=== PATIENT | female | born 1950 | race Caucasian/White ===

== ENCOUNTER → 2017-11-03 | Outpatient (CLI) | payer MEDICARE, OTHER, SELFPAY | PROVIDERS: Family Provider Family Medicine; Visit Provider Orthopaedic Surgery | DX: Z48.89 Encounter for other specified surgical aftercare (principal) | CPT/HCPCS: 73502; 73552 ==

== ENCOUNTER → 2017-11-26 08:23 | Outpatient (CLI) | payer MEDICARE, OTHER, SELFPAY ==
--- NOTE | 2017-11-26 08:30 | XR_ITS ---
XR femur LT 2V CLINICAL INDICATION: Follow-up fracture ITS.REASON: post op ORDERING PHYSICIAN: Macario Perez MD PATIENT AGE: 67 years COMPARISON: 11/03/2017 FINDINGS: There remains good alignment of the comminuted subtrochanteric fracture of the left femur status post ORIF with long intramedullary herbert and cerclage wire proximally with a gamma nail present. There are osteoarthritic changes of the left hip. No significant callus formation at the fracture site. IMPRESSION: Overall no change status post ORIF of comminuted subtrochanteric fracture with good alignment
--- NOTE | 2017-11-26 08:30 | XR_ITS ---
XR hip LT 2-3V w/pelvis HISTORY: ITS.REASON: postoperative visit ORDERING PHYSICIAN: Macario Perez MD PATIENT AGE: 67 years COMPARISON: 11/03/2017 FINDINGS: There remains good alignment of the comminuted subtrochanteric fracture of the left femur status post ORIF with long intramedullary herbert and cerclage wire proximally with a gamma nail present. There are osteoarthritic changes of the left hip. No significant callus formation at the fracture site. IMPRESSION: Overall no change status post ORIF of comminuted subtrochanteric fracture of the left hip with good alignment
== END ==
PROVIDERS: PCP Family Medicine; Visit Provider Orthopaedic Surgery
DX: Z48.89 Encounter for other specified surgical aftercare (principal)
CPT/HCPCS: 73502; 73552

== ENCOUNTER → 2018-02-21 14:32 | Outpatient (POV) | payer MEDICARE, OTHER, SELFPAY ==
[2018-02-21 14:51] VITALS: BP 165/96; PULSE 98; BMI 25.0
--- NOTE | 2018-02-21 15:49 | HMH.PAINSOAP ---
[facility] Pain Management SOAP Note Subjective:: Patient is an extremely pleasant 67-year-old white female who is status post medial branch blocks at L3-L4 L4-L5 L5-S1. Patient had this back last year and did extremely well with it until recently. She has had some occasional pain but her symptoms were controlled up to 90% until this last several weeks. She did have a fall where she broke her leg and she believes that this may have led to the renewal of back pain. Patient rates her pain a 7 out of 10 today. Patient is not on any blood thinners. Patient's tried and failed physical therapy, anti-inflammatories, medications. She is stating her pain is in her back and does not radiate down her legs. ROS General: no recent weight change, no fever, no sleep disturbances Respiratory: no cough, no shortness of air, no recurring pulmonary infections Cardiovascular/Peripheral Vascular: No chest pain, No palpitations, no edema, no shortness of breath. Gastrointestinal: no incontinence, normal bowel movements reported Genitourinary: no incontinence Musculoskeletal: Back pain Psychiatric: normal mood/ affect Neurological: [denies weakness in extremities], [denies balance issues] Objective:: Physical Exam General: Alert and oriented x3, no acute distress, pleasant and cooperative, [on room air] Lungs: Resps E/U, Symmetrical chest expansion, Eyes: PERRL Musculoskeletal: Flexion and extension of lumbar spine somewhat guarded secondary to pain, deep tendon reflexes normal, strength in upper and lower extremities [5/5], slightly antalgic gait noted, positive Kemps test of lumbar spine Neurological: speech clear, plant senior 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 Given the efficacy of this in the past I believe that this would be beneficial. Patient has tried and failed physical therapy, medications, anti-inflammatories. She is not on any coagulopathy therapy. This note was dictated using voice recognition software and may contain errors or omissions
--- NOTE | 2018-02-21 15:55 | P.CONS_ITS ---
[facility] Pain Management SOAP Note Subjective:: Patient is an extremely pleasant 67-year-old white female who is status post medial branch blocks at L3-L4 L4-L5 L5-S1. Patient had this back last year and did extremely well with it until recently. She has had some occasional pain but her symptoms were controlled up to 90% until this last several weeks. She did have a fall where she broke her leg and she believes that this may have led to the renewal of back pain. Patient rates her pain a 7 out of 10 today. Patient is not on any blood thinners. Patient's tried and failed physical therapy, anti-inflammatories, medications. She is stating her pain is in her back and does not radiate down her legs. ROS General: no recent weight change, no fever, no sleep disturbances Respiratory: no cough, no shortness of air, no recurring pulmonary infections Cardiovascular/Peripheral Vascular: No chest pain, No palpitations, no edema, no shortness of breath. Gastrointestinal: no incontinence, normal bowel movements reported Genitourinary: no incontinence Musculoskeletal: Back pain Psychiatric: normal mood/ affect Neurological: [denies weakness in extremities], [denies balance issues] Objective:: Physical Exam General: Alert and oriented x3, no acute distress, pleasant and cooperative, [ on room air] Lungs: Resps E/U, Symmetrical chest expansion, Eyes: PERRL Musculoskeletal: Flexion and extension of lumbar spine somewhat guarded secondary to pain, deep tendon reflexes normal, strength in upper and lower extremities [5/5], slightly antalgic gait noted, positive Kemps test of lumbar spine Neurological: speech clear, singer songwriter equal, no gross sensory deficits Assessment:: Lumbar facet arthropathy, lumbar spondylosis, degenerative disc disease of the lumbar spine Plan:: We will schedule a bilateral medial branch block at L3-L4, L4-L5, L5-S1. Given the efficacy of this in the past I believe that this would be beneficial. Patient has tried and failed physical therapy, medications, anti- inflammatories. She is not on any coagulopathy therapy. This note was dictated using voice recognition software and may contain errors or omissions
== END ==
PROVIDERS: Family Provider Family Medicine; PCP Family Medicine; Visit Provider Clinical Nurse Specialist Family Health
DX: M47.816 Spondylosis without myelopathy or radiculopathy, lumbar region (principal)
CPT/HCPCS: 99212

== ENCOUNTER → 2018-02-23 12:56 | Outpatient (CLI) | payer MEDICARE, OTHER, SELFPAY ==
--- NOTE | 2018-02-23 12:59 | XR_ITS ---
XR hip LT 2-3V w/pelvis HISTORY: Follow-up surgery ITS.REASON: postoperative visit dos 10/17/17 ORDERING PHYSICIAN: Macario Perez MD PATIENT AGE: 67 years COMPARISON: 11/26/2017 FINDINGS: Status post ORIF left proximal femur fracture. Gamma nail with long intramedullary herbert is present. Nondisplaced proximal femur fracture in the subtrochanteric region noted with increasing callus formation medially. A faint lucency is noted at the proximal tip of the gamma nail. Underlying loosening of the prosthesis or infection is a consideration. Follow-up recommended. There are severe osteoarthritic changes of the left hip as well as the right hip. IMPRESSION: 1. Status post ORIF left proximal femur fracture with evidence of healing of the fracture site with callus formation developing medially. 2. Questionable developing lucency at the proximal tip of the gamma nail which may be seen with loosening or infection. 3. Severe osteoarthritis of the left
--- NOTE | 2018-02-23 12:59 | XR_ITS ---
XR femur LT 2V CLINICAL INDICATION: Follow-up fracture/ORIF ITS.REASON: post operative dos 10/17/17 ORDERING PHYSICIAN: Macario Perez MD PATIENT AGE: 67 years COMPARISON: 11/26/2017 FINDINGS: Status post ORIF of proximal left femur fracture with gamma nail and long intramedullary herbert present. Developing callus formation is present medially. A cerclage wire is present at this area. There is good alignment. The transverse screw in the distal aspect of the intramedullary herbert has fractured at its central aspect. Osteoarthritic changes are present at the knee. IMPRESSION: 1. Status post ORIF proximal femur fracture with healing. 2. Fracture of the transverse screw within the distal aspect of the long intramedullary herbert. 3. There is questionable loosening of the gamma nail component proximally better detected on the hip films.
== END ==
PROVIDERS: PCP Family Medicine; Visit Provider Orthopaedic Surgery
DX: Z48.89 Encounter for other specified surgical aftercare (principal)
CPT/HCPCS: 73502; 73552

== ENCOUNTER → 2018-02-23 14:19 | Outpatient (CLI) | payer MEDICARE, OTHER, SELFPAY ==
[2018-02-23 16:15] LABS: C-Reactive Protein < 0.2 mg/L (0.0-0.9)
[2018-02-23 16:34] LABS: Basophils % 0.6 % (0.1-2.0); Eosinophils # 0.2 K/mm3 (0.0-0.4); Eosinophils % 3.2 % (0.1-12.0); Hematocrit 36.6 % (37.0-47.0); Hemoglobin 11.7 g/dL (12.2-16.2); Lymphocytes # 1.9 K/mm3 (0.7-4.5); Lymphocytes % 27.7 K/mm3 (10-50); Mean Corpuscular HGB Conc 31.9 g/dL (31.8-35.4); Mean Corpuscular Hemoglobin 29.6 pg (27.0-31.2); Mean Corpuscular Volume 92.7 fl (81-99); Mean Platelet Volume 7.9 fl (7.4-10.4); Monocytes # 0.4 K/mm3 (0.1-1.0); Monocytes % 5.5 % (1.7-9.3); Neutrophils # 4.3 K/mm3 (1.8-7.8); Neutrophils % 62.9 % (37.0-80.0); Platelet Count 225 K/mm3 (142-424); Red Blood Count 3.95 M/mm3 (4.20-5.40); Red Cell Distribution Width 13.5 % (11.5-17.5); White Blood Count 6.8 K/mm3 (4.8-10.8)
[2018-02-23 18:55] LABS: Erythrocyte Sedimentation Rate 29 mm/hr (0-30)
== END ==
PROVIDERS: Visit Provider Orthopaedic Surgery
DX: B99.9 Unspecified infectious disease (principal); Z48.89 Encounter for other specified surgical aftercare
CPT/HCPCS: 36415; 73502; 73552; 85025; 85651; 86140

== ENCOUNTER → 2018-03-14 10:25 | Outpatient (POV) | payer MEDICARE, OTHER, SELFPAY ==
[2018-03-14 10:39] VITALS: BP 170/80; PULSE 89; RESP 18; TEMP 36.7; O2SAT 99; BMI 25.9
--- NOTE | 2018-03-14 11:21 | P.CONS_ITS ---
[facility] Pain Management SOAP Note Subjective:: This patient is a pleasant 67-year-old white female who we have been treating for low back pain secondary to lumbar spondylosis. Patient is following up after her most recent medial branch block at L3-L4 L4-L5 L5-S1 bilaterally. Patient states she is 80-90% relief of her pain. Patient states that she is doing well. Patient is going for a second opinion on potential hip replacement. Patient states she would like to follow up with us on an as- needed basis. ROS General: no recent weight change, no fever, no sleep disturbances Respiratory: no cough, no shortness of air, no recurring pulmonary infections Cardiovascular/Peripheral Vascular: No chest pain, No palpitations, no edema, no shortness of breath. Gastrointestinal: no incontinence, normal bowel movements reported Genitourinary: no incontinence Musculoskeletal: Back pain Psychiatric: normal mood/ affect, [denies depression], [denies anxiety] Neurological: [denies weakness in extremities] Objective:: Physical Exam General: Alert and oriented x3, no acute distress, pleasant and cooperative, on room air Lungs: Resps E/U, Symmetrical chest expansion, Eyes: PERRL Musculoskeletal: Flexion and extension of lumbar spine somewhat guarded secondary to pain, deep tendon reflexes normal, strength in upper and lower extremities [5/5], [abnormal gait noted] Neurological: speech clear, pole climber equal, no gross sensory deficits Assessment:: Degenerative disc disease of the lumbar spine with lumbar facet arthropathy and lumbar spondylosis Plan:: We will follow-up with this patient on an as-needed basis. Patient is going for second opinion in regards to hip replacement. Patient has been instructed to call us if she needs us. Patient still doing very well after latest medial branch block. This note was dictated using voice recognition software and may contain errors or omissions
== END ==
PROVIDERS: Family Provider Family Medicine; PCP Family Medicine; Visit Provider Clinical Nurse Specialist Family Health
DX: M47.896 Other spondylosis, lumbar region (principal)
CPT/HCPCS: 99212

== ENCOUNTER → 2018-03-21 08:51 | Outpatient (CLI) | payer MEDICARE, OTHER, SELFPAY ==
--- NOTE | 2018-03-21 08:58 | MM_ITS ---
MM Dig screening mamm BI w/CAD CAD Screening ORDERING PHYSICIAN : Tariq Betancourt MD PATIENT AGE: 67 years GENDER: Female COMPARISON: Previous mammograms: May 2012, March 2017, September 2013 INDICATION: Routine screening. No hormones. No new complaints. Noncontributory family history. TECHNIQUE: Standard CC and MLO images were obtained. R2 CAD reviewed. FINDINGS: Lower density breast with generalized fatty replacement. Minimal residual fibroglandular elements noted, towards upper-outer quadrant bilateral . No significant change since prior study. No dominant mass nor suspicious calcifications. No architectural distortion . IMPRESSION: Stable bilateral mammogram... With no significant new findings. Follow-up in one year recommended BI-RADS Category: 1 Negative RECOMMENDED FOLLOW-UP: 1YR - 1 YEAR FOLLOW-UP (A letter has been sent to the patient regarding results of the study.)
--- NOTE | 2018-03-21 08:59 | XR_ITS ---
XR DEXA axial skeleton HISTORY: ITS.REASON: POST MENOPAUSAL ORDERING PHYSICIAN: Tariq Betancourt MD PATIENT AGE: 67 years COMPARISON: 03/18/2017 FINDINGS: The BMD measured at the Total femoral neck is 0.666 g/cm squared with a T score of -2.7. This is considered Osteoporotic according to the World Health Organization criteria. Fracture risk is High. Treatment is advised. The L1-L4 density has a T score of -0.5 consistent with osteopenia. This is increased 14% compared to the previous study. The right hip density has decreased by 4% compared to the previous exam. IMPRESSION: Osteoporosis with high fracture risk. Treatment recommended. Recommend follow-up exam March 2019
== END ==
PROVIDERS: Family Provider Family Medicine; PCP Family Medicine; Visit Provider Family Medicine
DX: Z12.31 Encounter for screening mammogram for malignant neoplasm of breast (principal); Z78.0 Asymptomatic menopausal state
CPT/HCPCS: 77067; 77080

== ENCOUNTER → 2018-03-22 15:45 | Outpatient (CLI) | payer MEDICARE, OTHER, SELFPAY ==
[2018-03-22 16:01] LABS: Microscopic, Urine URINE MICROSCOPIC (MICROSCOPIC)
[2018-03-22 16:13] LABS: Appearance,Urine CLEAR (Clear); Bilirubin,Urine Negative (Negative); Blood, Urine Negative (Negative); Color,Urine YELLOW (Yellow); Glucose,Urine (UA) Negative (Negative); Ketones,Urine Negative (Negative); Leukocyte Esterase,Urine Negative (Negative); Nitrate,Urine Negative (Negative); PH,Urine 5.5 (5.0-8.5); Protein,Urine Negative (Negative); Specific Gravity, Urine <= 1.005 (1.005-1.030); Urobilinogen,Urine 0.2 EU/dl (0.2)
[2018-03-22 16:19] LABS: Basophils % 0.4 % (0.1-2.0); Eosinophils # 0.2 K/mm3 (0.0-0.4); Eosinophils % 2.9 % (0.1-12.0); Hematocrit 36.1 % (37.0-47.0); Hemoglobin 11.7 g/dL (12.2-16.2); Lymphocytes # 1.5 K/mm3 (0.7-4.5); Lymphocytes % 23.8 K/mm3 (10-50); Mean Corpuscular HGB Conc 32.5 g/dL (31.8-35.4); Mean Corpuscular Hemoglobin 29.9 pg (27.0-31.2); Mean Corpuscular Volume 92.1 fl (81-99); Mean Platelet Volume 7.8 fl (7.4-10.4); Monocytes # 0.3 K/mm3 (0.1-1.0); Neutrophils # 4.3 K/mm3 (1.8-7.8); Neutrophils % 67.9 % (37.0-80.0); Platelet Count 223 K/mm3 (142-424); Red Blood Count 3.91 M/mm3 (4.20-5.40); Red Cell Distribution Width 13.8 % (11.5-17.5); White Blood Count 6.3 K/mm3 (4.8-10.8)
--- NOTE | 2018-03-22 16:25 | XR_ITS ---
XR chest 2V HISTORY: Tobacco use, COPD ITS.REASON: PREOP FOR HIP REPLACEMENT ORDERING PHYSICIAN: Tariq Betancourt MD PATIENT AGE: 67 years COMPARISON: 10/16/2017 FINDINGS: Hyperinflation with attenuation of the peripheral pulmonary vessels consistent with COPD. No lobar consolidation or collapse. No acute bony anomalies. Mild degenerative changes are present in the thoracic spine. IMPRESSION: COPD, no change with no acute finding
[2018-03-22 16:29] LABS: Activated Partial Thrombo Time 25.6 seconds (23.6-34.0); INR 0.93 (0.9-1.1)
[2018-03-22 17:13] LABS: Bacteria,Urine Trace /lpf; Squamous Epithelial Cell,Urine Occasional #/hpf (0-5)
[2018-03-22 17:15] LABS: Erythrocyte Sedimentation Rate 43 mm/hr (0-30)
[2018-03-22 17:21] LABS: Hemoglobin A1C 4.7 % (0.0-7.0)
[2018-03-22 17:22] LABS: Anion Gap 8.7 mEq/L (5-15); Blood Urea Nitrogen 9 mg/dL (7-18); Carbon Dioxide 32 mmol/L (21.0-32.0); Chloride 104 mmol/L (98-107); Creatinine,Serum 0.56 mg/dL (0.55-1.02); Estimated Glomerular Filt Rate 107 ml/min (>60); GFR (African American) 130 ML/MIN (>60); Glucose 85 mg/dL (74-106); Potassium 3.7 mmoL/L (3.5-5.1); Sodium 141 mmol/L (136-145)
[2018-03-24 10:23] LABS: C-Reactive Protein < 0.2 mg/L (0.0-0.9)
== END ==
PROVIDERS: Visit Provider Family Medicine
DX: Z01.818 Encounter for other preprocedural examination (principal); Z79.899 Other long term (current) drug therapy
CPT/HCPCS: 36415; 71046; 80048; 81001; 83036; 85025; 85610; 85651; 85730; 86140; 93005

== ENCOUNTER → 2018-05-23 10:43 | Outpatient (POV) | payer MEDICARE, OTHER, SELFPAY ==
[2018-05-23 11:01] VITALS: BP 149/68; PULSE 100; RESP 18; O2SAT 98; BMI 20.3
--- NOTE | 2018-05-23 11:24 | P.CONS_ITS ---
[facility] Pain Management SOAP Note Subjective:: Patient is a pleasant 67-year-old white female who presents today to discuss additional medial branch blocks at L3-L4 L4-L5 L5-S1 bilaterally. We are treating this patient for pain secondary to lumbar spondylosis and facet arthropathy. Patient gets about 80-90% relief of her pain for several months with these medial branch blocks. Patient has just had a hip replacement in March and she states since she has been more active with physical therapy she is had increased pain in her back. Patient has not been released from her surgeon yet we discussed that she needs to be released from her surgeon prior to us repeating her medial branch blocks. Patient understands this. Patient is not on any anticoagulation therapy. She rates her pain a 6 out of 10 today mostly in her low back. Patient denies any radicular symptoms. ROS General: no recent weight change, no fever, no sleep disturbances Respiratory: no cough, no shortness of air, no recurring pulmonary infections Cardiovascular/Peripheral Vascular: No chest pain, No palpitations, no edema, no shortness of breath. Gastrointestinal: no incontinence, normal bowel movements reported Genitourinary: no incontinence Musculoskeletal: Back pain Psychiatric: normal mood/ affect Neurological: [denies weakness in extremities], [denies balance issues] Objective:: Physical Exam General: Alert and oriented x3, no acute distress, pleasant and cooperative, [ on room air] Lungs: Resps E/U, Symmetrical chest expansion, Eyes: PERRL Musculoskeletal: Flexion and extension of lumbar spine somewhat guarded secondary to pain, deep tendon reflexes normal, strength in upper and lower extremities [5/5], [abnormal gait noted], positive facet loading lumbar spine Neurological: speech clear, four horse hitch driver equal, no gross sensory deficits Assessment:: Lumbar spondylosis, facet arthropathy of the lumbar spine Plan:: We will schedule medial branch block at L3-L4 L4-L5 L5-S1 bilaterally for the end of June this will be after she is released from her physical therapy and surgeon. Patient has been instructed to call the office if there is any changes in this release date. I will follow-up with the patient after her injections. This note was dictated using voice recognition software and may contain errors or omissions
== END ==
PROVIDERS: Family Provider Family Medicine; PCP Family Medicine; Visit Provider Clinical Nurse Specialist Family Health
DX: M47.816 Spondylosis without myelopathy or radiculopathy, lumbar region (principal)
CPT/HCPCS: 99212

== ENCOUNTER → 2018-06-27 11:10 | Outpatient (POV) | payer MEDICARE, OTHER, SELFPAY ==
[2018-06-27 11:34] VITALS: BP 150/75; PULSE 83; RESP 18; O2SAT 98; BMI 25.6
--- NOTE | 2018-06-27 12:14 | P.CONS_ITS ---
[facility] Pain Management SOAP Note Subjective:: Patient is a pleasant 67-year-old white female who presents today for follow-up after medial branch block of the L3-L4 L4-L5 L5-S1 levels bilaterally. Patient is doing wonderful she states that she her pain is a 2 out of 10. Patient is continuing to heal from a hip replacement. Patient states that in August she will have her other hip replaced. Patient would like to follow-up on an as- needed basis. ROS General: no recent weight change, no fever, no sleep disturbances Respiratory: no cough, no shortness of air, no recurring pulmonary infections Cardiovascular/Peripheral Vascular: No chest pain, No palpitations, no edema, no shortness of breath. Gastrointestinal: no incontinence, normal bowel movements reported Genitourinary: no incontinence Musculoskeletal: Back pain Psychiatric: normal mood/ affect Neurological: [denies weakness in extremities], [denies balance issues] Objective:: Physical Exam General: Alert and oriented x3, no acute distress, pleasant and cooperative, [ on room air] Lungs: Resps E/U, Symmetrical chest expansion Eyes: PERRL Musculoskeletal: Flexion and extension of lumbar spine somewhat guarded secondary to pain, deep tendon reflexes normal, strength in upper and lower extremities [5/5], [abnormal gait noted] Neurological: speech clear, helminthologist equal, no gross sensory deficits Assessment:: Degenerative disc disease of lumbar spine with lumbar spondylosis and facet arthropathy Plan:: We will schedule this patient on an as-needed basis. Patient's been a call our office if she has any need for injective therapy in the future. Patient extremely well with her injections in the past. This note was dictated using voice recognition software and may contain errors or omissions
== END ==
PROVIDERS: Family Provider Family Medicine; PCP Family Medicine; Visit Provider Clinical Nurse Specialist Family Health
DX: M51.36 Other intervertebral disc degeneration, lumbar region (principal); M47.896 Other spondylosis, lumbar region; M54.06 Panniculitis affecting regions of neck and back, lumbar region
CPT/HCPCS: 99213

== ENCOUNTER → 2018-10-10 15:07 | Outpatient (POV) | payer MEDICARE, OTHER, SELFPAY ==
[2018-10-10 15:27] VITALS: BP 155/77; PULSE 89; RESP 18; O2SAT 98; BMI 25.4
--- NOTE | 2018-10-10 15:33 | HMH.PAINSOAP ---
[facility] Pain Management SOAP Note Subjective:: Patient is a pleasant 68-year-old white female who presents today for follow-up after some time since her last medial branch block. Patient is here for a another round of medial branch blocks at L3-L4 L4-L5 L5-S1. Patient gets about 80% relief of her symptoms up to 4 5 months. She is doing wonderful. Patient rates her pain a 5 out of 10. Patient would like to move forward with this prior to New Year's. Patient is not on any anticoagulation therapy. And she is continuing a home stretching regimen. ROS General: no recent weight change, no fever, no sleep disturbances Respiratory: no cough, no shortness of air, no recurring pulmonary infections Cardiovascular/Peripheral Vascular: No chest pain, No palpitations, no edema, no shortness of breath. Gastrointestinal: no incontinence, normal bowel movements reported Genitourinary: no incontinence Musculoskeletal: Back pain Psychiatric: normal mood/ affect, Neurological: [denies weakness in extremities], [denies balance issues] Objective:: Physical Exam General: Alert and oriented x3, no acute distress, pleasant and cooperative, [on room air] Lungs: Resps E/U, Symmetrical chest expansion, Eyes: PERRL Musculoskeletal: Flexion and extension of lumbar spine somewhat guarded secondary to pain, deep tendon reflexes normal, strength in upper and lower extremities [5/5], slightly antalgic gait noted positive Kemps test bilaterally lumbar spine Neurological: speech clear, diabetes solutions specialist equal, no gross sensory deficits Assessment:: Degenerative disc disease lumbar spine with lumbar spondylosis and facet arthropathy Plan:: We will schedule her for medial branch block/facet joint injection L3-L4 L4-L5 L5-S1 bilaterally. Given the efficacy of this in the past I believe it would be beneficial for her. This note was dictated using voice recognition software and may contain errors or omissions
--- NOTE | 2018-10-10 15:36 | P.CONS_ITS ---
[facility] Pain Management SOAP Note Subjective:: Patient is a pleasant 68-year-old white female who presents today for follow-up after some time since her last medial branch block. Patient is here for a another round of medial branch blocks at L3-L4 L4-L5 L5-S1. Patient gets about 80% relief of her symptoms up to 4 5 months. She is doing wonderful. Patient rates her pain a 5 out of 10. Patient would like to move forward with this prior to New Year's. Patient is not on any anticoagulation therapy. And she is continuing a home stretching regimen. ROS General: no recent weight change, no fever, no sleep disturbances Respiratory: no cough, no shortness of air, no recurring pulmonary infections Cardiovascular/Peripheral Vascular: No chest pain, No palpitations, no edema, no shortness of breath. Gastrointestinal: no incontinence, normal bowel movements reported Genitourinary: no incontinence Musculoskeletal: Back pain Psychiatric: normal mood/ affect, Neurological: [denies weakness in extremities], [denies balance issues] Objective:: Physical Exam General: Alert and oriented x3, no acute distress, pleasant and cooperative, [on room air] Lungs: Resps E/U, Symmetrical chest expansion, Eyes: PERRL Musculoskeletal: Flexion and extension of lumbar spine somewhat guarded secondary to pain, deep tendon reflexes normal, strength in upper and lower extremities [5/5], slightly antalgic gait noted positive Kemps test bilaterally lumbar spine Neurological: speech clear, director process engineering equal, no gross sensory deficits Assessment:: Degenerative disc disease lumbar spine with lumbar spondylosis and facet arthropathy Plan:: We will schedule her for medial branch block/facet joint injection L3-L4 L4-L5 L5-S1 bilaterally. Given the efficacy of this in the past I believe it would be beneficial for her. This note was dictated using voice recognition software and may contain errors or omissions
== END ==
PROVIDERS: PCP Family Medicine; Visit Provider Clinical Nurse Specialist Family Health
DX: M51.36 Other intervertebral disc degeneration, lumbar region (principal); M47.896 Other spondylosis, lumbar region; M54.06 Panniculitis affecting regions of neck and back, lumbar region
CPT/HCPCS: 99213

== ENCOUNTER → 2019-08-14 14:14 | Outpatient (POV) | payer MEDICARE, OTHER, SELFPAY ==
[2019-08-14 14:25] VITALS: BP 176/85; PULSE 84; RESP 18; O2SAT 97; BMI 24.7
--- NOTE | 2019-08-15 08:25 | P.CONS_ITS ---
[facility] Pain Management SOAP Note Subjective:: Patient is a very pleasant 69-year-old white female who presents today for follow-up. Patient had a medial branch block 9 months ago and had 80% relief until just recently. Patient would like to repeat this. She gets 80% relief for 4 to 6 months every time that she gets a medial branch block. She is had pain for over 6 months she is not on any anticoagulation therapy. She is continuing a home stretching program. She does not have any current infections. She rates her pain today an 8 out of 10. Mostly in her lower back. She has difficulty with twisting motion she has a positive Kemps test and facet loading lumbar spine ROS General: no recent weight change, no fever, no sleep disturbances Respiratory: no cough, no shortness of air, no recurring pulmonary infections Cardiovascular/Peripheral Vascular: No chest pain, No palpitations, no edema, no shortness of breath. Gastrointestinal: no incontinence, normal bowel movements reported Genitourinary: no incontinence Musculoskeletal: Back pain Psychiatric: normal mood/ affect Neurological: [denies weakness in extremities], [denies balance issues] Objective:: Physical Exam General: Alert and oriented x3, no acute distress, pleasant and cooperative, [on room air] Lungs: Resps E/U, Symmetrical chest expansion, Eyes: PERRL Musculoskeletal: Flexion and extension of lumbar spine somewhat guarded secondary to pain, deep tendon reflexes normal, strength in upper and lower extremities [5/5], slightly antalgic gait noted Neurological: speech clear, branding specialist equal, no gross sensory deficits Assessment:: Degenerative disc disease lumbar spine with lumbar spondylosis and facet arthropathy Plan:: Given the injection efficacy in the past we will order a L3-L4 L4-L5 L5-S1 bilateral lumbar medial branch block/facet joint injection. I will follow-up with the patient after this and reassess her symptoms at that time she is been instructed to call the office if she has any issues prior to her next appointment. Dr. Varela has reviewed this note and agrees with this plan of care. This note was dictated using voice recognition software and may contain errors or omissions [facility] History I have reviewed the patient's past medical history: Yes Medical History: Reports:: Cancer (precancerous polyps colon), Hyperlipidemia, Hypertension Denies:: Diabetes Mellitus Type 1, Diabetes Mellitus Type 2, MRSA, Seizures *Have you ever received a pneumonia vaccine?: No *Have you received a flu vaccine this season?: No Other Medical History: Reports: Arthritis, Other (Sleep Apnea.) Laterality Cases: Left: Total Hip Replacement, Bilateral: Tonsillectomy Other Surgeries: Yes: Tubal Ligation, Other (Adenoidectomy, Joint/Bone, LEFT hip/femur.) Amputation: No Fractures: Yes - *Social History Smoking Status: Current every day smoker Tobacco Type: cigarettes # Packs/Day (cigarettes): 1 Alcohol Intake: never *Occupational Status:: retired Household Members: spouse *Travel in the last 8 weeks: None Family Hx:: Thyroid Disorder
== END ==
PROVIDERS: PCP Family Medicine; Visit Provider Clinical Nurse Specialist Family Health
DX: M51.36 Other intervertebral disc degeneration, lumbar region (principal); M54.06 Panniculitis affecting regions of neck and back, lumbar region; M47.816 Spondylosis without myelopathy or radiculopathy, lumbar region
CPT/HCPCS: 99212

== ENCOUNTER → 2019-09-01 07:43 | Outpatient (CLI) | payer MEDICARE, OTHER, SELFPAY ==
--- NOTE | 2019-09-01 07:47 | CT_ITS ---
PROCEDURE: CT LUNG SCREENING CLINICAL INDICATION: H/O NICOTINE DEPENDENCE Thirty-seven pack-year smoking history, asymptomatic for lung cancer COMPARISON: LDCTLCAS LDCT FOR LUNG CA SCREEN from 03/18/2017 LDCTLCAS LDCT FOR LUNG CA SCREEN from 09/27/2017 TECHNIQUE: The exam was performed on a [facility] Speed [address] scanner using 2.90 mGy CTDI. A low dose helical CT CHEST was performed on a multi-detector scanner. All CT scans at the facility use one or more dose reduction, viz: automated exposure control, ma/kV adjustment per patient size (including targeted exams where dose is matched to indication, i.e. head), or iterative reconstruction technique. The LDCT was performed in a facility that meets the criteria for the screening program. Data regarding this exam was submitted to ACR which is an approved registry. The order for this exam indicates that it came as a result of a lung cancer screening counseling shard decision-making visit that included all the elements required of such a visit including smoking cessation. The radiologist interpreting this exam meets the CMS criteria for the LDCT lung cancer screening program. The exam is reported using the Lung-RADS classification scale and reported to the ACR registry. NOTE: This study was performed for the specific purposes of lung cancer screening and is not an alternative to diagnostic chest CT. RADIATION DOSE: CTDI vol(CT dose Index-volume) = 2.90mG DLP (Dose Length Product) = 111.60 mGcm FINDINGS: COPD/centrilobular emphysema Small cluster of nodules once again noted in the right upper lobe unchanged. A 5 mm nodule right lower lobe posteriorly unchanged. Fissural nodule on the right unchanged. 6 mm noncalcified left lower lobe laterally unchanged. Atelectatic or fibrotic changes in the lingula the the faint ground-glass nodule left upper lobe laterally at 4 mm probably unchanged. 2 OTHER FINDINGS: Calcification in the left thyroid gland. Coronary artery calcifications. Mild bronchial thickening/COPD IMPRESSION: Overall stable CT appearance of the chest Lung rads category 3 benign Other findings include COPD and coronary artery disease. Recommend annual LD CT screening Dictated by: Santiago Michelle MD 09/02/2019 07:21 Electronically signed by Santiago Michelle MD in [place] 09/17/2019 06:34
--- NOTE | 2019-09-01 07:47 | MM_ITS ---
PROCEDURE: MM DIG SCREENING MAMM BI W/CAD Patient Age:69Y CLINICAL INDICATION: SCREENING. No hormones, no new complaints. Noncontributory family history. COMPARISON: DIGMAMMS MAMMOGRAM SCREEN-PSYCHOLOGY LECTURER N/C from 08/18/2007 [facility] DIGITAL MAMM-SCREEN BILATERAL from 09/17/2010 [facility] DIGITAL MAMM-SCREEN BILATERAL from 05/10/2012 [facility] DIG MAMM-SCREEN DAWNA from 09/19/2013 [facility] DIG MAMM-SCREEN DAWNA W/CAD from 03/18/2017 [facility] MM Dig screening mamm BI w/CAD from 03/21/2018 TECHNIQUE: Standard CC and MLO images were obtained. R2 CAD reviewed. Additional axillary CC view right breast only FINDINGS: In [id number] fibroglandular elements bilaterally with partial fatty replacement. Overall lower density breast Left breast: Focal density retroareolar region seen on the CC view of more pronounced than previous studies but I suspect this mainly reflects overlapping shadows. Particularly since the MLO view findings here the retroareolar region appear similar to studies dating back to 2017. Nonetheless with this appearance at and this area highlighted by CAD in both projections I would suggest spot MLO and CC view and rolled CC views left breast--along with left breast ultrasound. Right breast: Minor focal area density at the superior breast on MLO view appears similar to 2006, and 2017. On the CC view there is a slightly more focal appearance at lateral retroareolar region. Thus would suggest suggest spot cc and MLO view and full 90 degree view right breast when patient returns IMPRESSION: LEFT BREAST: Focal area of density retroareolar region on CC view most likely reflects overlapping shadows Accentuating stable structures/tissue, but with today's appearance today's CC view-it does warrant does warrant additional spot views as described above, and subsequent ultrasound left breast RIGHT BREAST:. Spot views also suggested on right Today's views I believe merely accentuate pre-existing areas of density, doubtful significance but would benefit from spot views when the patient returns BI-RAD Category: 0 Need Additional Imaging Evaluation. FOLLOW-UP: IMM Immediate Follow-up Recommended. Spot views bilateral breast as discussed above (A letter has been sent to the patient regarding results of the study.) Dictated by: Celio Verdugo MD 09/02/2019 10:22 Electronically signed by Celio Verdugo MD in [place] 09/05/2019 12:26
== END ==
PROVIDERS: PCP Family Medicine; Visit Provider Family Medicine
DX: Z12.31 Encounter for screening mammogram for malignant neoplasm of breast (principal); Z87.891 Personal history of nicotine dependence; Z12.2 Encounter for screening for malignant neoplasm of respiratory organs
CPT/HCPCS: 77067

== ENCOUNTER → 2019-10-06 13:25 | Outpatient (CLI) | payer MEDICARE, OTHER, SELFPAY ==
--- NOTE | 2019-10-06 13:28 | US_ITS ---
PROCEDURE: 1.. MM DIG MAMM BI DX W/CAD 2.. US BREAST LT COMPLETE from 10/06/2019 3.. US BREAST RT COMPLETE from 10/06/2019 Patient Age:69Y CLINICAL INDICATION: Possible ABN densities bilaterally noted on recent screening MAMM COMPARISON: [facility] DIGITAL MAMM-SCREEN BILATERAL from 09/17/2010 [facility] DIGITAL MAMM-SCREEN BILATERAL from 05/10/2012 [facility] DIG MAMM-SCREEN DAWNA from 09/19/2013 [facility] DIG MAMM-SCREEN DAWNA W/CAD from 03/18/2017 [facility] MM Dig screening mamm BI w/CAD from 03/21/2018 MM DIG SCREENING MAMM BI W/CAD from 09/01/2019 US BREAST LT COMPLETE from 10/06/2019 US BREAST RT COMPLETE from 10/06/2019 TECHNIQUE: Right breast: Spot cc and MLO view along with full 90 degree view Left breast: CC views with spot left MLO. CAD review FINDINGS: BILATERAL DIAGNOSTIC MAMMOGRAM, WITH BILATERAL SPOT VIEWS Right mammogram: The minimal area of density at the superior retroareolar on recent screening mammogram dissipates, and compresses out on today's additional spot views.-No area of significant concern. No change since prior studies.. Left mammogram.: Previous focal density retroareolar region a less evident today and dissipates on today's multiple cc views-no significant new findings. Findings compatible with studies dating back to 2011, no dominant nor suspicious mass. BILATERAL BREAST ULTRASOUND: Complete breasts surveyed with ultrasound, with additional axillary survey included RIGHT BREAST ULTRASOUND: Negative right breast ultrasound No cyst nor significant solid nodule at right breast. No architectural distortion. Images retroareolar region unremarkable. Few the benign axillary lymph nodes observed LEFT BREAST ULTRASOUND: Negative left breast ultrasound No cyst nor significant solid nodule at left breast. No architectural distortion. Few small benign axillary lymph nodes noted IMPRESSION: No significant findings in either breast with today's ultrasound nor mammography Additional mammogram views decreased concern regarding any unique density on mammography Bilateral breast ultrasound show no areas of concern in either breast. No no cyst nor breast solid nodule . Bilateral follow-up may resume annual schedule BI-RAD Category: 2 Benign Finding(s) FOLLOW-UP: 1YR 1 Year Follow-up (A letter has been sent to the patient regarding results of the study.) Dictated by: Celio Verdugo MD 10/08/2019 10:50 Electronically signed by Celio Verdugo MD in [place] 10/08/2019 10:50
== END ==
PROVIDERS: PCP Family Medicine; Visit Provider Nurse Practitioner Family
DX: R92.8 Other abnormal and inconclusive findings on diagnostic imaging of breast (principal)
CPT/HCPCS: 76641; 77066

== ENCOUNTER → 2019-10-09 13:42 | Outpatient (POV) | payer MEDICARE, OTHER, SELFPAY ==
[2019-10-09 14:23] VITALS: BP 152/72; PULSE 85; RESP 18; O2SAT 99; BMI 24.8
--- NOTE | 2019-10-09 14:38 | HMH.PAINSOAP ---
[facility] Pain Management SOAP Note Subjective:: Patient is a pleasant 69-year-old white female who presents today for follow-up after medial branch block. Patient is 90% better. Patient gets up to 6 months relief after these injections. Patient is heading to [place] next week. Overall she is doing well rating her pain a 1 out of 10 ROS General: no recent weight change, no fever, no sleep disturbances Respiratory: no cough, no shortness of air, no recurring pulmonary infections Cardiovascular/Peripheral Vascular: No chest pain, No palpitations, no edema, no shortness of breath. Gastrointestinal: no new onset incontinence, normal bowel movements reported Genitourinary: no new onset incontinence Musculoskeletal: Back pain Psychiatric: normal mood/ affect Neurological: [denies new onset weakness in extremities], [denies new onset balance issues] Objective:: Physical Exam General: Alert and oriented x3, no acute distress, pleasant and cooperative, [on room air] Lungs: Resps E/U, Symmetrical chest expansion, Eyes: PERRL Musculoskeletal: Flexion and extension of lumbar spine somewhat guarded secondary to pain, deep tendon reflexes normal, strength in upper and lower extremities [5/5], lightly antalgic gait noted Neurological: speech clear, chief of safety and protection equal, no gross sensory deficits Assessment:: Degenerative disc disease lumbar spine with lumbar spondylosis and facet arthropathy Plan:: We will see the patient back on a as needed basis. Patient's been instructed to call our office when her pain begins to return. Dr. Varela has reviewed this note and agrees with this plan of care. This note was dictated using voice recognition software and may contain errors or omissions [facility] History I have reviewed the patient's past medical history: Yes Medical History: Reports:: Cancer, Hyperlipidemia, Hypertension Denies:: Diabetes Mellitus Type 1, Diabetes Mellitus Type 2, MRSA, Seizures *Have you ever received a pneumonia vaccine?: Yes *Have you received a flu vaccine this season?: Yes Other Medical History: Reports: Arthritis, Other Laterality Cases: Left: Total Hip Replacement, Bilateral: Tonsillectomy Other Surgeries: Yes: Tubal Ligation, Other Amputation: No Fractures: Yes - *Social History Smoking Status: Current every day smoker Tobacco Type: cigarettes # Packs/Day (cigarettes): 1 Alcohol Intake: never *Occupational Status:: other Housing: house Household Members: spouse *Travel in the last 8 weeks: None Family Hx:: Thyroid Disorder
--- NOTE | 2019-10-09 14:44 | P.CONS_ITS ---
[facility] Pain Management SOAP Note Subjective:: Patient is a pleasant 69-year-old white female who presents today for follow-up after medial branch block. Patient is 90% better. Patient gets up to 6 months relief after these injections. Patient is heading to [place] next week. Overall she is doing well rating her pain a 1 out of 10 ROS General: no recent weight change, no fever, no sleep disturbances Respiratory: no cough, no shortness of air, no recurring pulmonary infections Cardiovascular/Peripheral Vascular: No chest pain, No palpitations, no edema, no shortness of breath. Gastrointestinal: no new onset incontinence, normal bowel movements reported Genitourinary: no new onset incontinence Musculoskeletal: Back pain Psychiatric: normal mood/ affect Neurological: [denies new onset weakness in extremities], [denies new onset balance issues] Objective:: Physical Exam General: Alert and oriented x3, no acute distress, pleasant and cooperative, [on room air] Lungs: Resps E/U, Symmetrical chest expansion, Eyes: PERRL Musculoskeletal: Flexion and extension of lumbar spine somewhat guarded secondary to pain, deep tendon reflexes normal, strength in upper and lower extremities [5/5], lightly antalgic gait noted Neurological: speech clear, credentialing coordinator equal, no gross sensory deficits Assessment:: Degenerative disc disease lumbar spine with lumbar spondylosis and facet arthropathy Plan:: We will see the patient back on a as needed basis. Patient's been instructed to call our office when her pain begins to return. Dr. Varela has reviewed this note and agrees with this plan of care. This note was dictated using voice recognition software and may contain errors or omissions [facility] History I have reviewed the patient's past medical history: Yes Medical History: Reports:: Cancer, Hyperlipidemia, Hypertension Denies:: Diabetes Mellitus Type 1, Diabetes Mellitus Type 2, MRSA, Seizures *Have you ever received a pneumonia vaccine?: Yes *Have you received a flu vaccine this season?: Yes Other Medical History: Reports: Arthritis, Other Laterality Cases: Left: Total Hip Replacement, Bilateral: Tonsillectomy Other Surgeries: Yes: Tubal Ligation, Other Amputation: No Fractures: Yes - *Social History Smoking Status: Current every day smoker Tobacco Type: cigarettes # Packs/Day (cigarettes): 1 Alcohol Intake: never *Occupational Status:: other Housing: house Household Members: spouse *Travel in the last 8 weeks: None Family Hx:: Thyroid Disorder
== END ==
PROVIDERS: PCP Family Medicine; Visit Provider Clinical Nurse Specialist Family Health
DX: M51.36 Other intervertebral disc degeneration, lumbar region (principal); M47.816 Spondylosis without myelopathy or radiculopathy, lumbar region; M54.06 Panniculitis affecting regions of neck and back, lumbar region
CPT/HCPCS: 99212

== ENCOUNTER → 2019-10-25 13:37 | Outpatient (CLI) | payer MEDICARE, OTHER, SELFPAY | PROVIDERS: Visit Provider Nurse Practitioner Family | DX: G47.33 Obstructive sleep apnea (adult) (pediatric) (principal); G47.34 Idiopathic sleep related nonobstructive alveolar hypoventilation; I10 Essential (primary) hypertension | CPT/HCPCS: 94762 ==

== ENCOUNTER → 2020-08-23 11:28 | Outpatient (CLI) | payer MEDICARE, OTHER, SELFPAY | PROVIDERS: PCP Family Medicine; Visit Provider Family Medicine | DX: R00.2 Palpitations (principal) | CPT/HCPCS: 93225; 93226 ==

== ENCOUNTER → 2020-09-03 09:23 | Outpatient (CLI) | payer MEDICARE, OTHER, SELFPAY ==
--- NOTE | 2020-09-03 09:27 | MM_ITS ---
PROCEDURE: MM DIG SCREENING MAMM BI W/CAD Digital Breast Tomosynthesis Included CLINICAL INDICATION: SCREENING There is no personal or family history of breast cancer. COMPARISON: [facility] MM Dig screening mamm BI w/CAD from 03/21/2018 MG MM DIG SCREENING MAMM BI W/CAD from 09/01/2019 MG MM DIG MAMM BI DX W/CAD from 10/06/2019 TECHNIQUE: Standard CC and MLO images and 3D Tomosynthesis was obtained. R2 CAD reviewed. FINDINGS: Moderate diffuse fibroglandular densities are seen throughout both breast and the findings of bilateral and symmetrical. There are couple of benign-appearing microcalcifications left breast. There is no suspicious lesion and no suspicious microcalcifications. IMPRESSION: Fibrofatty parenchyma with no suspicious lesions seen BI-RAD Category: 2 Benign Finding(s) FOLLOW-UP: 1YR 1 Year Follow-up (A letter has been sent to the patient regarding results of the study.) Dictated by: Dr. Star Contreras MD 09/04/2020 12:33 Dr. Star Contreras MD in [place] 09/04/2020 12:33
== END ==
PROVIDERS: PCP Family Medicine; Visit Provider Family Medicine
DX: Z12.31 Encounter for screening mammogram for malignant neoplasm of breast (principal); M81.0 Age-related osteoporosis without current pathological fracture
CPT/HCPCS: 77063; 77067; 77080

== ENCOUNTER → 2020-10-07 09:08 | Outpatient (CLI) | payer MEDICARE, OTHER, SELFPAY ==
--- NOTE | 2020-10-07 | CA_ITS ---
APPROVED REPORT Director Of Online Merchandising: CT Laterality: Bilateral Indications: Dizziness and Vertigo Doppler Spectral Velocity Analysis ECA (R) 105.40/12.90 cm/s ECA (L) 201.60/17.10 cm/s dICA (R) 114.60/27.90 cm/s dICA (L) 111.00/17.10 cm/s Pablo (R) 85.70/24.80 cm/s Pablo (L) 143.50/13.70 cm/s pICA (R) 89.10/27.40 cm/s pICA (L) 184.50/17.10 cm/s dCCA (R) 68.80/18.00 cm/s dCCA (L) 110.50/22.30 cm/s pCCA (R) 74.10/17.20 cm/s pCCA (L) 84.80/19.30 cm/s Vert (R) 49.40/14.10 cm/s Vert (L) 52.70/12.20 cm/s ICA/CCA 1.70 ICA/CCA 1.70 Findings Duplex evaluation demonstrates stenosis of the right proximal internal carotid artery <20%. Duplex evaluation demonstrates stenosis of the left proximal internal carotid artery in the range of 50-69%, lower end of scale. Duplex evaluation demonstrates antegrade flow of the bilateral Vertebral Arteries. Conclusion Duplex evaluation demonstrates stenosis of the right proximal internal carotid artery <20%. Duplex evaluation demonstrates stenosis of the left proximal internal carotid artery in the range of 50-69%, lower end of scale. Duplex evaluation demonstrates antegrade flow of the bilateral Vertebral Arteries. Electronically signed by : Santiago Michelle MD 10/07/2020 16:21:41
== END ==
PROVIDERS: PCP Family Medicine; Visit Provider Family Medicine
DX: R42 Dizziness and giddiness (principal)
CPT/HCPCS: 93880

== ENCOUNTER 2020-11-11 11:46 | Emergency (ER) | payer MEDICARE, OTHER, SELFPAY ==
[2020-11-11 12:35] VITALS: BP 146/83; PULSE 87; RESP 17; TEMP 36.6; O2SAT 99; BMI 25.2
--- NOTE | 2020-11-11 12:49 | HMH.EDUTC ---
[facility] [place] Impression: URI (upper respiratory infection) Qualifiers: URI type: unspecified URI Qualified Code(s): J06.9 - Acute upper respiratory infection, unspecified Disposition: Home, Self-Care Condition on Discharge: Good Instructions: DI for Sinusitis, DI for Cough -- Adult, Azithromycin Additional Instructions: *Monitor Temp, Over the counter Motrin or Tylenol as directed/as needed Tylenol every 4 hours and Motrin every 6 hours (as long as your family doctor has told you that you can take it) for fever or pain. and straight to ER if unable to lower temp less than 101.0 after medication given *Warm salt water gargles may help to soothe the throat *Throat Lozenges *Warm fluids like tea with honey may help to soothe the throat *Sleep elevated *Humidifier/Vaporizer *Flonase 2 sprays in each nostril daily but be aware that it may take 2-3 days before you notice improvement Follow up IMMEDIATELY for new or worsening symptoms or no Noticeable improvement over the next 48-72 hours. 911 for difficulty breathing or swallowing Prescriptions: Azithromycin [Z-Murali 250mg Tab] 250 mg PO DIRECTED #6 tab Transmission Status: Pending to [id number] Referrals: Tariq Betancourt MD [Primary Care Provider] - Time of Disposition: 13:38 Medical Decision Making - Davin Inquiry Pt receiving controlled substance: No Davin was queried for this patient: No Vital Signs: 11/11/20 12:35 Temperature 97.8 F Temperature Source Oral Pulse Rate [Right Brachial] 87 Respiratory Rate 17 Blood Pressure [Right Arm] 146/83 H Blood Pressure Mean [Right Arm] 104 Blood Pressure Source [Right Arm] Automatic Cuff Blood Pressure Position [Right Arm] Sitting 02 Sat by Pulse Oximetry 99 Oxygen Delivery Method Room Air Orders (Tests/Meds): ED MEDICATIONS Discontinued Medications Generic Name Dose Route Start Last Admin Trade Name Freq PRN Reason Stop Dose Admin Methylprednisolone Sodium Succinate 125 mg 11/11/20 12:56 11/11/20 13:19 Methylprednisolone Sod Succ 125mg Vial IM 11/11/20 12:57 125 mg ONCE ONE Administration Medical Decision Narrative: Patient state that she has taken Solu Medrol injection and azithromycin multiple times in the past without reaction or complications Discussed CXR and patient declined at this time [facility] [place] - General Stated complaint: congested,headache,cough Time Seen by Provider: 11/11/20 12:49 Mode of Arrival: Ambulatory Source of Information: Patient Limitations: No Limitations Description of Symptoms (Recalled from Triage Doc. by RN): PATIENT C/O CONGESTION AND COUGH X 2 DAYS HEENT Symptoms (Recalled from RN notes): Yes Resp Symptoms (Recalled from RN notes): Yes Skin Symptoms (Recalled from RN notes): No MS Symptoms (Recalled from RN notes): No Functional Status (Recalled from RN notes): WNL - History of Present Illness Provider Complaint: Patient states that she has been having sinus pain and congestion and feeling like it is trying to move into her chest area States that she is coughing at times and cough worse when she lays down Denies known fever Denies SOA - Related Data Home Medications Medication Instructions Recorded Confirmed meloxicam 15 mg tablet 15 mg PO DAILY 09/13/19 11/11/20 Alendronate Sodium 70 mg PO DAILY 09/22/19 11/11/20 amlodipine 10 mg tablet 10 mg PO DAILY tab 09/09/20 11/11/20 benazepril 20 mg tablet 20 mg PO DAILY tab 09/09/20 11/11/20 Previous Rx's Medication Instructions Recorded Azithromycin [Z-Murali 250mg Tab] 250 mg PO DIRECTED #6 tab 11/11/20 Allergies Allergy/AdvReac Type Severity Reaction Status Date / Time cefdinir [From Omnicef] Allergy Intermediate disoriented Verified 09/09/20 12:56 ibandronate sodium Allergy Intermediate BP high & Verified 09/09/20 12:56 [From Boniva] low moxifloxacin [From Avelox] Allergy Unknown Verified 09/09/20 12:56 - Worker's Comp Is this a W
[2020-11-11 13:44] VITALS: BP 146/83; PULSE 87; RESP 17; TEMP 36.6; O2SAT 99
== END 2020-11-11 13:45 | disposition home or self-care (01) ==
PROVIDERS: Emergency Provider Nurse Practitioner; PCP Family Medicine
DX: J06.9 Acute upper respiratory infection, unspecified (principal); I10 Essential (primary) hypertension; E78.5 Hyperlipidemia, unspecified; F17.210 Nicotine dependence, cigarettes, uncomplicated; Z79.899 Other long term (current) drug therapy
CPT/HCPCS: G0463; 96372; 99202

== ENCOUNTER 2020-11-14 11:47 | Emergency (ER) | payer MEDICARE, OTHER, SELFPAY ==
[2020-11-14 11:47] VITALS: BP 168/75; PULSE 90; RESP 14; TEMP 36.1; O2SAT 98; BMI 25.6
--- NOTE | 2020-11-14 12:29 | XR_ITS ---
PROCEDURE: XR CHEST 2V CLINICAL HISTORY: COUGH/CONGESTION COMPARISON: CR CXR CHEST(2 VIEWS-NOT PORTABLE) from 09/19/2013 CR CXR1 CHEST-PORTABLE from 10/16/2017 CR CXR2V XR chest 2V from 03/22/2018 FINDINGS: The cardiomediastinal silhouette and pulmonary vascularity are within normal limits. The lungs are clear without infiltrates, suspicious nodules, or pleural effusions. COPD changes. No acute bony findings. IMPRESSION: No acute findings. Dictated by: Santiago Michelle MD 11/14/2020 13:31 Santiago Michelle MD in [place] 11/14/2020 13:31
--- NOTE | 2020-11-14 12:43 | HMH.EDUTC ---
[facility] [place] Impression: Bronchitis, Exposure to COVID-19 virus Disposition: Home, Self-Care Condition on Discharge: Good Instructions: DI for COVID-19 (Suspected or Confirmed ), Preventing the Spread of Coronavirus Discharge Instructions Additional Instructions: *Monitor Temp, Over the counter Motrin or Tylenol as directed/as needed Tylenol every 4 hours and Motrin every 6 hours (as long as your family doctor has told you that you can take it) for fever or pain. and straight to ER if unable to lower temp less than 101.0 after medication given Follow up IMMEDIATELY for new or worsening symptoms or no Noticeable improvement over the next 48-72 hours. 911 for difficulty breathing or swallowing You were tested for today for COVID19 your test result should be back in the next 24-48 hours, you may call to the [facility] to see if your test results are back in the next 48 hours [phone] [facility] hours are 9am-9pm You was given a handout with instructions for Self Quarantine and Self isolation for while you wait on test results and what to do if they are positive If you are positive the Health Dept will be contacting you also Finish the antibiotics (azithromycin) that you are on. If you have difficulty breathing or worsening symptoms please go to the ER. GO TO THE ER FOR ANY WORSENING SYMTOMS OR CONCERNS Prescriptions: Benzonatate [Tessalon Perle 100mg Cap] 100 mg PO TIDP PRN #30 cap PRN Reason: Cough Transmission Status: Received by [id number] Referrals: Tariq Betancourt MD [Primary Care Provider] - Time of Disposition: 13:30 Medical Decision Making - Medical Records Medical records reviewed: No: I reviewed the patient's medical records. - Davin Inquiry Pt receiving controlled substance: No Vital Signs: 11/14/20 11:47 11/14/20 13:47 Temperature 97.0 F L 97.0 F L Temperature Source Oral Pulse Rate 90 Pulse Rate [Right] 90 Respiratory Rate 14 14 Blood Pressure 168/75 H Blood Pressure [Right Arm] 168/75 H Blood Pressure Mean [Right Arm] 106 02 Sat by Pulse Oximetry 98 [facility] [place] - General Stated complaint: soa Time Seen by Provider: 11/14/20 12:43 Mode of Arrival: Ambulatory Source of Information: Patient Description of Symptoms (Recalled from Triage Doc. by RN): pt c/o congestion pt request COVID TEST HEENT Symptoms (Recalled from RN notes): Yes Resp Symptoms (Recalled from RN notes): Yes Skin Symptoms (Recalled from RN notes): No MS Symptoms (Recalled from RN notes): No Functional Status (Recalled from RN notes): wnl - History of Present Illness Provider Complaint: She states that she returned today to have a covid-19 test. She was in here 3 days and she was diagnosed with bronchitis then. She has been on azithromycin since then. She states that since then her cough has got better, but she is still coughing some. She denies any fever or chills. She is also having some pleuritic type chest pain. - Related Data Home Medications Medication Instructions Recorded Confirmed meloxicam 15 mg tablet 15 mg PO DAILY 09/13/19 11/11/20 Alendronate Sodium 70 mg PO DAILY 09/22/19 11/11/20 amlodipine 10 mg tablet 10 mg PO DAILY tab 09/09/20 11/11/20 benazepril 20 mg tablet 20 mg PO DAILY tab 09/09/20 11/11/20 Previous Rx's Medication Instructions Recorded Azithromycin [Z-Murali 250mg Tab] 250 mg PO DIRECTED #6 tab 11/11/20 Benzonatate [Tessalon Perle 100mg 100 mg PO TIDP PRN #30 cap 11/14/20 Cap] Allergies Allergy/AdvReac Type Severity Reaction Status Date / Time cefdinir [From Omnicef] Allergy Intermediate disoriented Verified 11/14/20 12:32 ibandronate sodium Allergy Intermediate BP high & Verified 11/14/20 12:32 [From Boniva] low moxifloxacin [From Avelox] Allergy Unknown Verified 11/14/20 12:32 - Worker's Comp Is this a Worker's Comp case?: No Is this an [facility] Worker's Comp?: No Is this a [place] Worker's Comp?: No [facility] History
[2020-11-14 13:47] VITALS: BP 168/75; PULSE 90; RESP 14; TEMP 36.1; O2SAT 98
== END 2020-11-14 13:48 | disposition home or self-care (01) ==
PROVIDERS: Emergency Provider Nurse Practitioner Family; PCP Family Medicine
DX: Z20.822 Contact with and (suspected) exposure to COVID-19 (principal); J20.9 Acute bronchitis, unspecified; I10 Essential (primary) hypertension; E78.5 Hyperlipidemia, unspecified; F17.210 Nicotine dependence, cigarettes, uncomplicated; Z79.899 Other long term (current) drug therapy
CPT/HCPCS: G0463; 71046; 99202; U0003

== ENCOUNTER → 2020-12-06 07:22 | Outpatient (CLI) | payer MEDICARE, OTHER, SELFPAY ==
--- NOTE | 2020-12-06 | CA_ITS ---
APPROVED REPORT Exam: Pharmacologic Technologist: Cathy Shannon Ht: 5 ft 2 in Wt: 140 lbs BSA: 1.64 m2 HR: 79 bpm BP: 157/72 mmHg Indications: Precordial chest pain Medical History Medications: Amlodipine,,,,, Atorvastatin,,,,, Calcium,,,,, MeLOXICAM,,,,, FluTICASONE,,,,, Alendronate,,,,, Benzaepril,,,,, Stress Test Details Test: LEXISCAN HR Resting HR: 80 bpm Max Heart Rate (APMHR): 148 bpm Max HR Achieved: 116 bpm Target HR (85% APMHR): 125 bpm % of APMHR: 78 Recovery HR: 94 bpm BP Resting BP: 157.0/72.0 mmHg Max BP: 157.0/72.0 mmHg Recovery BP: 169.0/69.0 mmHg ECG Resting ECG: Sinus rhythm with PVCs Clinical Exercise duration: 04:00 min Highest Stage Achieved: Exercise capacity: 1.0 METs Stress ECG Conclusion Lexiscan portion completed. Patient complained of shortness of breath during peak infusion. Symptoms: Shortness of breath during peak infusion, resolved in recovery. No chest pain. Arrhythmias/Ectopy: Occasional PVCs ST-T Changes: Less than 1.[address] depression. Conclusion: Images to follow. Test Summary RECOVERY 03:38 . . 98 . 149/ 69 . . REST 10:27 . . 80 . 157/ 72 . . Stage 1 . . . . . . . Myoview Injected Stage 1 01:00 . . 99 . . . . Stage 2 01:00 . . 103 . 136/ 69 . . Stage 3 01:00 . . 98 . 153/ 66 . . Stage 4 01:00 . . 100 . 139/ 67 . Stop exercise at 04:00 RECOVERY 01:00 . . 97 . 151/ 70 . . RECOVERY 02:00 . . 96 . 151/ 70 . . RECOVERY 03:00 . . 95 . 151/ 70 . . RECOVERY 03:38 . . 98 . 149/ 69 . . Electronically signed by : Saúl Murray, 12/06/2020 17:51:09
--- NOTE | 2020-12-06 07:28 | NM_ITS ---
APPROVED REPORT Exam: Nuclear Stress Test Indication: HTN, HYPERLIPIDEMIA, TOB USE, FM HX, C.P. Patient Location: Outpatient Stress Tech: Cathy Shannon NC Tech:Brittnee Evans JAKYKirit RT(R)(N) Ht: 5 ft 1 in Wt: 136 lbs Bra Size: 38B HR: 79 bpm BP: 157/72 mmHg BSA: 1.60 m2 BMI: 25.6 History: HTN, HYPERLIPIDEMIA, TOB USE, FM HX, C.P. Procedure: Patient received a 0.4 mg of intravenous Lexiscan, resting heart rate 79 bpm, resting blood pressure 157/72 mmHg, with Lexiscan maximum heart rate achived was 101 bpm which is Less than 85 % of the maximum predicted heart rate and blood pressure was 153/66 mmHg. With Lexiscan, patient denied any complaint of chest pain. Electrocardiogram Resting electrocardiogram showed sinus rhythm, with Lexiscan there is less than 1.[address] segment depression noted from the baseline EKG. The EKG portion of the Lexiscan is nondiagnostic. Cardiac Stress and Resting SPECT Images: Cardiac Stress and Resting SPECT images were obtained using technetium 99m Myoview 32.3 mCi stress and 10.40 mCi at rest. Gated SPECT for analysis of segmental wall motion and calculation of the ejection fraction also done. Prone images were also obtained. Cardiac stress and resting SPECT images show uniform myocardial activity without segmental perfusion abnormality, computer derived ejection fraction is 63% with no regional wall motion abnormality, right ventricle is normal size and contractility. Conclusion: 1. The EKG portion of the Lexiscan is nondiagnostic. 2. No scintigraphic evidence of reversible ischemia seen, computer derived ejection fraction is 63% with no regional wall motion abnormality, right ventricle is normal size and contractility. 3. Normal Lexiscan Myoview study. Electronically signed by : Saúl Murray, 12/06/2020 18:13:42
== END ==
PROVIDERS: PCP Family Medicine; Visit Provider Family Medicine
DX: R07.2 Precordial pain (principal)
CPT/HCPCS: 78452; 93017; A9502; J2785

== ENCOUNTER → 2021-02-28 12:52 | Outpatient (CLI) | payer MEDICARE, OTHER, SELFPAY ==
--- NOTE | 2021-02-28 | US_ITS ---
APPROVED REPORT Exam Type: Ankle to Brachial Index Plaster Applicator: Bethanie Yoder CRT Indications Claudication: Risk Factors Hypertension Hyperlipidemia Current Smoker Pressures/Indices Right Indices Left Indices Brachial 144.00 mmHg Brachial 138.00 mmHg Low Thigh 123.00 mmHg 0.85 Low Thigh 69.00 mmHg 0.48 Calf 128.00 mmHg 0.89 Calf 66.00 mmHg 0.46 Ankle(PT) 124.00 mmHg 0.86 Ankle(PT) 67.00 mmHg 0.47 Ankle(DP) 123.00 mmHg 0.85 Ankle(DP) 70.00 mmHg 0.49 Digit 63.00 mmHg 0.44 Digit 45.00 mmHg 0.31 Findings R MELLISA 0.9 L MELLISA 0.5 R TBI 0.4 L TBI 0.3 Diminished waveforms and pulses on the Left. Conclusion R MELLISA 0.9 L MELLISA 0.5 R TBI 0.4 L TBI 0.3 Diminished waveforms and pulses on the Left. Moderate to severe arterial disease on the left Critical Notification Critical Value: Yes Physician Notified Date: 02/28/2021 Time: 13:30 Physician Name: Serafin Other Discipline: MILLICENT Hurtado Report Read Back Electronically signed by : Santiago Michelle MD 02/28/2021 17:51:50
--- NOTE | 2021-02-28 13:36 | CT_ITS ---
PROCEDURE: CT LUNG SCREENING CLINICAL INDICATION: HX OF NICOTINE DEPENDENCE Current smoker 40 pack year smoking history COMPARISON: CT CT LUNG SCREENING from 09/01/2019 TECHNIQUE: The exam was performed on a GE Light Speed [address] scanner using 2.90 mGy CTDI. A low dose helical CT CHEST was performed on a multi-detector scanner. All CT scans at the facility use one or more dose reduction, viz: automated exposure control, ma/kV adjustment per patient size (including targeted exams where dose is matched to indication, i.e. head), or iterative reconstruction technique. The LDCT was performed in a facility that meets the criteria for the screening program. Data regarding this exam was submitted to ACR which is an approved registry. The order for this exam indicates that it came as a result of a lung cancer screening counseling shard decision-making visit that included all the elements required of such a visit including smoking cessation. The radiologist interpreting this exam meets the [facility] criteria for the LDCT lung cancer screening program. The exam is reported using the Lung-RADS classification scale and reported to the ACR registry. NOTE: This study was performed for the specific purposes of lung cancer screening and is not an alternative to diagnostic chest CT. RADIATION DOSE: CTDI vol(CT dose Index-volume) = 2.90mG DLP (Dose Length Product) = 109.16 mGcm FINDINGS: COPD. Scattered areas scarring. Old granulomatous disease with calcified granulomas noted. 5 mm nodule right lung base posteriorly which appears stable and may contain a central calcification. Subpleural opacities noted in the lingula unchanged. 5 mm nodule left lower lobe laterally image 64 series 4 unchanged. 3 mm nodule just medial and anterior to this lesion stable. OTHER FINDINGS: Severe coronary artery calcifications.. Minimal prominence of the left renal collecting system incompletely image. Degenerative changes thoracic spine IMPRESSION: Lung-RADS Category 2 Benign Appearance or Behavior Follow-up: Continue annual screening with LDCT in 12 months Dictated by: Santiago Michelle MD 03/06/2021 13:02 Santiago Michelle MD in [facility] 03/06/2021 13:02
--- NOTE | 2021-02-28 13:36 | XR_ITS ---
PROCEDURE: XR DEXA AXIAL SKELETON CLINICAL HISTORY: OSTEOPOROSIS W/O CURRENT PATHOLOGICAL FRACTURE Pt has had spinal fusion. COMPARISON: CR DEXAAX XR DEXA axial skeleton from 03/21/2018 FINDINGS: The right hip BMD is 0.740 with a T-score of -1.7. The left forearm BMD is 0.550 with a T-score of -2.4. The lumbar spine BMD is 0.982 with a T-score of -0.6. Previously the lowest density was in the right femoral neck with a T-score -2.7 IMPRESSION: This patient is considered osteopenic according to the World Health Organization criteria. Bone density is between 10 and 25 percent below young normal. Fracture risk is moderate. Treatment is advised. Based on these results a follow-up exam is recommended in 2 year. Dictated by: Santiago Michelle MD 03/04/2021 06:29 Santiago Michelle MD in [facility] 03/04/2021 06:29
== END ==
PROVIDERS: PCP Family Medicine; Visit Provider Family Medicine
DX: I70.213 Atherosclerosis of native arteries of extremities with intermittent claudication, bilateral legs (principal); M81.0 Age-related osteoporosis without current pathological fracture; Z87.891 Personal history of nicotine dependence; Z12.2 Encounter for screening for malignant neoplasm of respiratory organs
CPT/HCPCS: 71271; 77080; 93923

== ENCOUNTER → 2021-03-06 14:34 | Outpatient (POV) | payer MEDICARE, OTHER, SELFPAY ==
[2021-03-06 14:43] VITALS: BP 139/76; PULSE 74; RESP 20; O2SAT 98; BMI 25.6
--- NOTE | 2021-03-06 15:16 | HMH.PAINSOAP ---
[facility] Pain Management SOAP Note Subjective:: Patient is a pleasant 70-year-old white female who presents today for follow-up after medial branch block. Patient has done extremely well in the past with medial branch blocks. She gets over 90% relief for over 3 months. She would like to move forward with a bilateral medial branch block given the efficacy of this in the past. She rates her pain today a 7 out of 10. ROS General: no recent weight change, no fever, no sleep disturbances Respiratory: no cough, no shortness of air, no recurring pulmonary infections Cardiovascular/Peripheral Vascular: No chest pain, No palpitations, no edema, no shortness of breath. Gastrointestinal: no new onset incontinence, normal bowel movements reported Genitourinary: no new onset incontinence Musculoskeletal: Back pain Psychiatric: normal mood/ affect Neurological: [denies new onset balance issues] Objective:: Physical Exam General: Alert and oriented x3, no acute distress, pleasant and cooperative, [on room air] Lungs: Resps E/U, Symmetrical chest expansion, Eyes: PERRL Musculoskeletal: Flexion and extension of number spine somewhat guarded secondary to pain, deep tendon reflexes normal, strength in upper and lower extremities [5/5], [abnormal gait noted] Neurological: speech clear, 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 We will follow up with her after reassess her symptoms at that time she has been instructed to call the office if she has any issues prior to her next appointment. Patient is not on any anticoagulation therapy. Dr. Varela has reviewed this note and agrees with this plan of care. This note was dictated using voice recognition software and may contain errors or omissions [facility] History I have reviewed the patient's past medical history: Yes Medical History: Reports:: Cancer, Hyperlipidemia, Hypertension Denies:: Diabetes Mellitus Type 1, Diabetes Mellitus Type 2, MRSA, Seizures *Have you ever received a pneumonia vaccine?: Yes *Have you received a flu vaccine this season?: Yes Other Medical History: Reports: Arthritis, Other Laterality Cases: Left: Total Hip Replacement, Bilateral: Tonsillectomy Other Surgeries: Yes: Tubal Ligation, Other Amputation: No Fractures: Yes - *Social History Smoking Status: Current every day smoker Tobacco Type: cigarettes # Packs/Day (cigarettes): 1 Alcohol Intake: never *Occupational Status:: retired Housing: house Household Members: spouse *Travel in the last 8 weeks: None Family Hx:: Thyroid Disorder
== END ==
PROVIDERS: PCP Family Medicine; Visit Provider Clinical Nurse Specialist Family Health
DX: M51.36 Other intervertebral disc degeneration, lumbar region (principal); M54.06 Panniculitis affecting regions of neck and back, lumbar region; M47.816 Spondylosis without myelopathy or radiculopathy, lumbar region
CPT/HCPCS: 99212; G0463

== ENCOUNTER 2021-03-14 14:05 | Day surgery (SDC) | payer MEDICARE, OTHER, SELFPAY ==
[2021-03-14 14:46] VITALS: BP 157/65; PULSE 89; RESP 18; TEMP 36.6; O2SAT 98; BMI 25.6
[2021-03-14 15:07] VITALS: BP 142/78; BP 142/89; PULSE 85; PULSE 89; RESP 18; O2SAT 98
--- NOTE | 2021-03-14 15:10 | HMH.PMPROC ---
- Procedure Date: 03/14/21 Time: 15:10 Anesthesiologist:: Randy Varela MD Complications:: None Pre-procedure Diagnosis:: Degenerative disc disease of lumbar spine with lumbar facet arthropathy and spondylosis Post-procedure Diagnosis:: Same Indications for Procedure:: The patient is a pleasant 70-year-old white female who we are treating for low back pain with lumbar spondylosis and lumbar facet arthropathy. She has done very well with previous medial branch blocks. She gets over 90% relief in her pain symptoms for over 3 months. Pain is just now starting to return. We will do repeat bilateral lumbar medial branch block/facet joint injections today. Procedure Details:: Lumbar medial branch block Informed consent was obtained and the risks and benefits of the procedure was explained to the patient. The back was prepped using ChloraPrep. The skin and subcutaneous tissues were anesthetized using lidocaine. I placed 22-gauge spinal needles into the facet joint/medial branches of L4-L5 and L5-S1 bilaterally. Needle placement was confirmed with dye. After this we injected 3 mL bupivacaine 0.25% and Depo-Medrol 20 mg into each facet joint/medial branch of L4-L5 and L5-S1 bilaterally. We used a total of 80 mg Depo-Medrol for both levels levels bilaterally. The patient tolerated the procedure well with no complications. Plan and Disposition:: We will follow-up with her in 2 weeks. Will reevaluate symptoms at that time.
[2021-03-14 15:18] VITALS: BP 147/66; PULSE 84; RESP 18; O2SAT 98
== END 2021-03-14 15:19 | disposition home or self-care (01) ==
LOC: SC.PAINP 14:06
PROVIDERS: PCP Family Medicine; Visit Provider Anesthesiology
DX: M51.36 Other intervertebral disc degeneration, lumbar region (principal); M54.06 Panniculitis affecting regions of neck and back, lumbar region; M47.816 Spondylosis without myelopathy or radiculopathy, lumbar region; I10 Essential (primary) hypertension; E78.5 Hyperlipidemia, unspecified; M19.90 Unspecified osteoarthritis, unspecified site; Z88.1 Allergy status to other antibiotic agents; J44.9 Chronic obstructive pulmonary disease, unspecified
CPT/HCPCS: 64493; 64494; J1030; Q9966

== ENCOUNTER → 2021-03-22 10:23 | Outpatient (CLI) | payer MEDICARE, OTHER, SELFPAY | PROVIDERS: Visit Provider Internal Medicine | DX: Z01.812 Encounter for preprocedural laboratory examination (principal); Z20.822 Contact with and (suspected) exposure to COVID-19; R06.00 Dyspnea, unspecified | CPT/HCPCS: U0003 ==

== ENCOUNTER 2021-03-24 09:35 | Day surgery (SDC) | payer MEDICARE, OTHER, SELFPAY ==
[2021-03-24] VITALS (76 sets, daily range): BP systolic 98–199; BP diastolic 37–100; PULSE 70–94; RESP 12–20; TEMP 36.4–36.6; O2SAT 90–100; BMI 25.0
--- NOTE | 2021-03-24 07:15 | IR_ITS ---
APPROVED REPORT Patient Location: Outpatient PROCEDURES Right femoral arterial access Catheter placed in the abdominal aorta Abdominal aortogram with bilateral iliofemoral angiogram Left femoral arterial access Stent deployment to the distal abdominal aorta extending into the right common iliac artery Stent deployment to the distal abdominal aorta extending into the left common iliac artery Stent deployment to the left external iliac artery Stent deployment to the right external iliac artery INDICATION Abnormal MELLISA, Mize claudication class III-IV, Occluded left common iliac artery, Severe disease in the right common iliac artery, Severe atherosclerotic plaque in the bilateral external iliac arteries Informed consent was obtained prior to the procedure. COMPLICATIONS NONE Estimated Blood Loss: LESS THAN 10 ML TECHNIQUE 1% lidocaine used anesthetize the right groin right femoral artery was accessed via the Salinger technique and a 5 Senegalese sheath was placed in the right femoral artery. Due to severe stenosis and calcification with tortuosity a long advantage wire was used to traverse the iliofemoral stenosis. A pigtail catheter was advanced into the abdominal aorta and abdominal aortography with bilateral iliofemoral angiography was performed. Following this 1% lidocaine was used to anesthetize the left groin and left femoral artery was accessed via the Salinger technique. A hydrophilic sheath 5 Senegalese radial sheath was placed in the left femoral artery. Therapeutic heparin was administered giving a therapeutic ACT. A long advantage wire was advanced into the left common iliac artery and a trailblazer was then advanced. This allowed for support and the advantage wire was pushed through the occlusion into the lumen of the aorta. Two 6 mm x 60 mm balloons were dilated in the abdominal aorta extending into each common iliac artery. 2???liters were used and the inflations were simultaneous. Following this a 7 mm x 57 mm EV 3 stent was placed in each respective femoral sheath and advanced into the distal abdominal aorta with each stent extending back into the common iliac artery. Stents were simultaneously deployed at 10 mattie. Following this repeat angiography demonstrated the right stent was undersized therefore an 8 mm balloon was advanced and deployed at 10 mattie to post dilate the right common iliac artery stent. Following this two 7 mm x 60 mm self-expanding EV 3 stents were deployed in the common iliac arteries extending into each external iliac artery. Following this two 6 mm x 80 mm balloons were placed in the common iliac artery extending into each external iliac artery and deployed at 8 mattie. The balloons were advanced and then deployed at 12 mattie in the proximal bilateral external iliac arteries. After post dilating the external iliac arteries the pigtail catheter was advanced back into the abdominal aorta and abdominal aortography was performed. Following this the patient was transferred to the postop holding area in stable condition for postoperative care and sheath removal ANGIOGRAPHIC RESULTS The distal abdominal aorta is calcified mildly aneurysmal with 30% calcified stenoses. The right common iliac artery has an eccentric 80% calcified stenosis followed by distal greater than 50% stenosis. The right external iliac artery has a concentric 70 to 80% stenosis. The right common femoral artery is calcified with 30 to 40% stenosis in the distal segment. The proximal right SFA and right profunda femoris arteries are widely patent The left common iliac artery is ostially occluded and then reconstitutes in the distal segment. The left external iliac artery has a long 50 to 60% william
[2021-03-24 15:54] LABS: CATHL Activated Clotting Time 210 SEC (74-125)
[2021-03-24 15:55] LABS: CATHL Activated Clotting Time 224 SEC (74-125)
[2021-03-24 15:57] LABS: CATHL Activated Clotting Time 144 SEC (74-125)
[2021-03-24 15:58] LABS: CATHL Activated Clotting Time 264 SEC (74-125)
[2021-03-24 15:59] LABS: CATHL Activated Clotting Time 275 SEC (74-125)
[2021-03-24 16:04] LABS: Microscopic, Urine URINE MICROSCOPIC (MICROSCOPIC)
[2021-03-24 16:10] LABS: Appearance,Urine CLEAR (Clear); Bilirubin,Urine Negative (Negative); Blood, Urine TRACE-I (Negative); Color,Urine YELLOW (Yellow); Glucose,Urine (UA) Negative (Negative); Ketones,Urine Negative (Negative); Leukocyte Esterase,Urine TRACE (Negative); Nitrate,Urine Negative (Negative); Protein,Urine Negative (Negative); Specific Gravity, Urine <= 1.005 (1.005-1.030); Urobilinogen,Urine 0.2 EU/dl (0.2)
[2021-03-24 16:20] LABS: Bacteria,Urine Trace /lpf; RBC,Urine Occasional #/hpf (0-3)
--- NOTE | 2021-03-24 19:18 | PC.NURSE ---
Kirk groin sites are cdi at this time. VSS Report given. Meds per mar r/t back pain. Educated pt on importance of laying flat at this time.
[2021-03-25] VITALS: BP 136/59; PULSE 70; PULSE 84; RESP 16; TEMP 36.6; O2SAT 97
--- NOTE | 2021-03-25 03:11 | PC.NURSE ---
No acute changes overnight, Pt has slept well. Bilateral groin sites are CDI, no evidence of hematoma. pt has c/o back pain, norco given per mar with favorable results. IV patent, SL. VSS, call light in reach, no concerns at this time.
[2021-03-25 03:43] VITALS: BP 139/56; PULSE 81; RESP 16; TEMP 36.9; O2SAT 99
[2021-03-25 04:00] VITALS: PULSE 70
[2021-03-25 05:01] VITALS: BMI 25.2
[2021-03-25 07:03] LABS: Hematocrit 35.1 % (37.0-47.0); Hemoglobin 11.8 g/dL (12.2-16.2)
[2021-03-25 07:12] LABS: Anion Gap 4.2 mEq/L (5-15); Blood Urea Nitrogen 9 mg/dl (7-17); Calcium 8.6 mg/dl (8.4-10.2); Carbon Dioxide 30 mmol/L (22.0-30.0); Chloride 104 mmol/L (98-107); Creatinine Clearance Estimated 50 mL/min (50-200); Estimated Glomerular Filt Rate 121 ml/min (>60); GFR (African American) 147 ML/MIN (>60); Glucose 86 mg/dl (74-100); Potassium 4.2 mmoL/L (3.5-5.1); Sodium 134 mmol/L (136-145)
[2021-03-25 07:49] VITALS: BP 117/54; PULSE 90; RESP 20; TEMP 36.6; O2SAT 95
[2021-03-25 08:00] VITALS: O2SAT 95
--- NOTE | 2021-03-25 09:05 | HMH.PHACLD ---
Antonia Pickens has received discharge medication counseling on the following medications: PATIENT WITH PERIPHERAL STENTS YESTERDAY. DISCHARGED WITH PRESCRIPTION FOR PLAVIX 75 MG DAILY. PATIENT ALREADY TAKING ASPIRIN [address] DAILY AND ATORVASTATIN 10 MG HS.
--- NOTE | 2021-03-25 09:26 | PC.NURSE ---
Pt was educated on post cath instructions and surgical site infections. Pt verbalized understanding pertaining to all information given. Pt's son was at bedside as well. Bailey and PIV, discontinued at time of discharge. Pt was taken by wheelchair per nursing staff.
== END 2021-03-25 09:25 | disposition home or self-care (01) ==
LOC: CATHLAB 09:37 → 2ND 12:44
PROVIDERS: PCP Family Medicine; Visit Provider Internal Medicine
DX: I70.213 Atherosclerosis of native arteries of extremities with intermittent claudication, bilateral legs (principal); I70.263 Atherosclerosis of native arteries of extremities with gangrene, bilateral legs; I70.1 Atherosclerosis of renal artery; F17.210 Nicotine dependence, cigarettes, uncomplicated; I10 Essential (primary) hypertension; E78.2 Mixed hyperlipidemia; Z71.6 Tobacco abuse counseling; Z88.1 Allergy status to other antibiotic agents; Z88.8 Allergy status to other drugs, medicaments and biological substances
CPT/HCPCS: 37221; 37223; 80048; 81001; 85014; 85018; 85347; 99152; 99153; C1725; C1769; C1876; C1894; J1644; J2720; Q9966

== ENCOUNTER → 2021-04-10 14:36 | Outpatient (POV) | payer MEDICARE, OTHER, SELFPAY ==
[2021-04-10 14:55] VITALS: BP 151/77; PULSE 86; RESP 18; O2SAT 98; BMI 25.2
--- NOTE | 2021-04-10 16:37 | P.CONS_ITS ---
[facility] Pain Management SOAP Note Subjective:: Patient is a pleasant 70-year-old white female who presents today for follow-up after medial branch block/facet joint injections. She is being treated for degenerative disc disease lumbar spine with lumbar facet arthropathy and spondylosis. Patient says that she undergoes injective therapy to her facet joints approximately every 3 to 4 months and this does give her significant relief. She gets between 80 to 90% relief with the injections. She does rate her pain a 3 out of 10 today and is doing well with her injections that she did undergo on March 14, 2021. Patient says that she does not need any further injective therapy at this time. Patient's pain is primarily when she leans forward and with extension at her waist. Review of Systems General: No recent weight changes, no fever, no sleep disturbances Respiratory: No cough, no shortness of air, no recurring pulmonary infections Cardiovascular/peripheral vascular: No chest pain, no palpitations, no edema, no shortness of breath Gastrointestinal: No new onset incontinence, normal bowel movements reported Genitourinary: No new onset incontinence Musculoskeletal: Intermittent low back pain worse with bending and twisting at waist Psychiatric: Normal mood/affect Neurological: [Denies weakness in extremities], [denies balance issues] Objective:: Physical exam General: Alert and oriented x3, no acute distress, pleasant and cooperative, [on room air] Lungs: Respirations even and unlabored, symmetrical chest expansion Eyes: PERRL Musculoskeletal: Flexion and extension of lumbar spine somewhat guarded secondary to pain, deep tendon reflexes normal, strength in upper and lower extremities [5/5], [abnormal gait noted] positive Kemps test Neurological: Speech clear, 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 She does not need any further injective therapy for now. We will plan to follow-up with her as needed if she needs further injective therapy. Patient has been instructed to contact the clinic with any concerns before the next appointment. Dr. Varela has reviewed this note and agrees with this plan of care. This note was dictated using voice recognition software and make contain errors or omissions. [facility] History I have reviewed the patient's past medical history: Yes Medical History: Reports:: Hyperlipidemia, Hypertension, Peripheral Artery Disease Denies:: Cancer, Diabetes Mellitus Type 1, Diabetes Mellitus Type 2, MRSA, Seizures *Have you ever received a pneumonia vaccine?: Yes *Have you received a flu vaccine this season?: Yes Other Medical History: Reports: Arthritis, Other. Denies: Blood Transfusion Reaction Laterality Cases: Left: Total Hip Replacement, Bilateral: Tonsillectomy Other Surgeries: Yes: Tubal Ligation, Other (ruptured disc) Amputation: No Fractures: Yes - *Social History Smoking Status: Current every day smoker Tobacco Type: cigarettes # Packs/Day (cigarettes): 50 Alcohol Intake: never Substance Use Type: denies use *Occupational Status:: unemployed Housing: house Household Members: spouse *Travel in the last 8 weeks: None Family Hx:: Coronary Artery Disease
== END ==
PROVIDERS: PCP Family Medicine; Visit Provider Clinical Nurse Specialist Family Health
DX: M51.36 Other intervertebral disc degeneration, lumbar region (principal); M47.816 Spondylosis without myelopathy or radiculopathy, lumbar region; M54.06 Panniculitis affecting regions of neck and back, lumbar region
CPT/HCPCS: 99212; G0463

== ENCOUNTER → 2021-07-03 14:58 | Outpatient (CLI) | payer MEDICARE, OTHER, SELFPAY ==
--- NOTE | 2021-07-03 15:00 | CA_ITS ---
APPROVED REPORT Left Lower Extremity Venous Study for DVT. 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 Indications Lower Extremity Pain: Left edema and pain LLE s/p LE arterial stents >1month ago Vein Imaging CFV (L): compressive, spontaneous, phasic, augmentation SFJ (L): compressive, spontaneous, phasic, augmentation FEM (L): compressive, spontaneous, phasic, augmentation POP (L): compressive, spontaneous, phasic, augmentation DFV (L): compressive, spontaneous, phasic, augmentation PTV (L): compressive, spontaneous, phasic, augmentation GSV (L): compressive, spontaneous, phasic, augmentation SSV (L): compressive, spontaneous, phasic, augmentation Peroneals (L):compressive, spontaneous, phasic, augmentation GAS (L): compressive, spontaneous, phasic, augmentation Findings Color flow duplex demonstrates no evidence of DVT of the following left lower extremity Veins:Common Femoral Vein, Femoral Vein, Popliteal Vein, Posterior Tibial Veins, Peroneal Veins, Deep Femoral Vein. Negative for DVT. Conclusion Negative for DVT. Electronically signed by : Santiago Michelle MD 07/03/2021 16:03:55
== END ==
PROVIDERS: PCP Family Medicine; Visit Provider Internal Medicine Cardiovascular Disease
DX: E78.2 Mixed hyperlipidemia (principal); I10 Essential (primary) hypertension; I73.9 Peripheral vascular disease, unspecified; R60.0 Localized edema
CPT/HCPCS: 93971

== ENCOUNTER → 2021-07-08 14:00 | Outpatient (CLI) | payer MEDICARE, OTHER, SELFPAY ==
--- NOTE | 2021-07-08 | US_ITS ---
APPROVED REPORT Exam Type: Ankle to Brachial Index Alum Operator: RT Lou(R) Indications Claudication: Bilaterally Rest Pain: Bilaterally Current Smoker Risk Factors History of PAD: Right Hypertension Hyperlipidemia Current Smoker Surgery/Intervention Stent : Date : 03/2021 Pressures/Indices Right Indices Left Indices Brachial 158.00 mmHg Brachial 160.00 mmHg Low Thigh 130.00 mmHg 0.81 Low Thigh 142.00 mmHg 0.89 Calf 138.00 mmHg 0.86 Calf 154.00 mmHg 0.96 Ankle(PT) 140.00 mmHg 0.88 Ankle(PT) 151.00 mmHg 0.94 Ankle(DP) 137.00 mmHg 0.86 Ankle(DP) 130.00 mmHg 0.81 Digit 55.00 mmHg 0.34 Digit 80.00 mmHg 0.50 Findings RT MELLISA=0.88 LT MELLISA=0.94 RT TBI=0.34 LT TBI=0.50 Normal pulses Normal waveforms Conclusion RT MELLISA=0.88 LT MELLISA=0.94 RT TBI=0.34 LT TBI=0.50 Normal pulses Normal waveforms Mild right side arterial disease Electronically signed by : Santiago Michelle MD 07/08/2021 16:13:52
== END ==
PROVIDERS: PCP Family Medicine; Visit Provider Internal Medicine Cardiovascular Disease
DX: M79.604 Pain in right leg (principal); I70.211 Atherosclerosis of native arteries of extremities with intermittent claudication, right leg
CPT/HCPCS: 93923

== ENCOUNTER → 2021-07-17 10:30 | Outpatient (CLI) | payer MEDICARE, OTHER, SELFPAY ==
[2021-07-17 11:47] LABS: Blood Urea Nitrogen 10 mg/dl (7-17); Calcium 8.8 mg/dl (8.4-10.2); Carbon Dioxide 31 mmol/L (22.0-30.0); Chloride 90 mmol/L (98-107); Estimated Glomerular Filt Rate 98 ml/min (>60); GFR (African American) 119 ML/MIN (>60); Glucose 93 mg/dl (74-100); Sodium 128 mmol/L (136-145)
== END ==
PROVIDERS: Visit Provider Internal Medicine Cardiovascular Disease
DX: E78.2 Mixed hyperlipidemia (principal); I10 Essential (primary) hypertension; I73.9 Peripheral vascular disease, unspecified; M79.604 Pain in right leg; M79.662 Pain in left lower leg; R60.0 Localized edema
CPT/HCPCS: 36415; 80048

== ENCOUNTER → 2021-07-28 10:37 | Outpatient (CLI) | payer MEDICARE, OTHER, SELFPAY ==
[2021-07-28 12:04] LABS: Anion Gap 13.9 mEq/L (5-15); Blood Urea Nitrogen 15 mg/dl (7-17); Calcium 9.4 mg/dl (8.4-10.2); Carbon Dioxide 29 mmol/L (22.0-30.0); Chloride 91 mmol/L (98-107); Estimated Glomerular Filt Rate 98 ml/min (>60); GFR (African American) 119 ML/MIN (>60); Glucose 100 mg/dl (74-100); Potassium 3.9 mmoL/L (3.5-5.1); Sodium 130 mmol/L (136-145)
== END ==
PROVIDERS: Visit Provider Physician Assistant
DX: E78.5 Hyperlipidemia, unspecified (principal); I10 Essential (primary) hypertension; I73.9 Peripheral vascular disease, unspecified; M79.604 Pain in right leg; M79.662 Pain in left lower leg; R60.0 Localized edema
CPT/HCPCS: 36415; 80048

== ENCOUNTER → 2021-08-15 11:46 | Outpatient (CLI) | payer MEDICARE, OTHER, SELFPAY ==
--- NOTE | 2021-08-15 11:52 | XR_ITS ---
PROCEDURE: XR FOOT LT MIN 3V CLINICAL INDICATION: Pain in left foot COMPARISON: No exams were available for comparison FINDINGS: No fracture or dislocation. No lytic or blastic change. There is normal mineralization. The joint spaces are well-preserved. No significant degenerative/arthritic changes. No erosive changes evident. There is a small spur of the calcaneus insertion of plantar tendon. Plantar arch is normal. Other findings:None. IMPRESSION: Small calcaneal spur foot Dictated by: Dr. Star Contreras MD 08/15/2021 12:18 Dr. Star Contreras MD in [place] 08/15/2021 12:18
--- NOTE | 2021-08-15 11:52 | XR_ITS ---
PROCEDURE: XR ANKLE LT MIN 3V CLINICAL INDICATION: Pain in left foot COMPARISON: No exams were available for comparison FINDINGS: The distal tibia and fibula appear intact. The medial and malleolus appear normal. In mortise is normal. No significant soft tissue swelling. IMPRESSION: No acute findings. Dictated by: Dr. Star Contreras MD 08/15/2021 12:17 Dr. Star Contreras MD in [facility] 08/15/2021 12:17
== END ==
PROVIDERS: PCP Family Medicine; Visit Provider Family Medicine
DX: M79.672 Pain in left foot (principal)
CPT/HCPCS: 73610; 73630

== ENCOUNTER → 2021-08-28 12:51 | Outpatient (CLI) | payer MEDICARE, OTHER, SELFPAY ==
--- NOTE | 2021-08-28 12:54 | CA_ITS ---
APPROVED REPORT Coroner Forensic Technician: Karley Rivers RVT Laterality: Bilateral Study Quality: Good Indications: roxanna Doppler Spectral Velocity Analysis ECA (R) 71.60/6.40 cm/s ECA (L) 164.00/9.00 cm/s dICA (R) 66.30/19.20 cm/s dICA (L) 85.80/21.80 cm/s Pablo (R) 78.10/19.20 cm/s Pablo (L) 170.40/25.60 cm/s pICA (R) 59.90/15.00 cm/s pICA (L) 180.60/29.50 cm/s dCCA (R) 53.50/11.80 cm/s dCCA (L) 66.30/11.80 cm/s pCCA (R) 62.00/8.60 cm/s pCCA (L) 82.30/13.90 cm/s Vert (R) 51.30/16.00 cm/s Vert (L) 75.60/16.70 cm/s ICA/CCA 1.46 ICA/CCA 2.72 Findings Study suggests less than 20% stenosis of the right internal cartoid artery. 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 Antegrade flow seen bilateral vertebral arteries. Conclusion Study suggests less than 20% stenosis of the right internal cartoid artery. 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 Antegrade flow seen bilateral vertebral arteries. Electronically signed by : Santiago Michelle MD 08/28/2021 15:03:13
== END ==
PROVIDERS: PCP Family Medicine; Visit Provider Physician Assistant
DX: E78.2 Mixed hyperlipidemia (principal); I10 Essential (primary) hypertension; I25.10 Atherosclerotic heart disease of native coronary artery without angina pectoris; I70.1 Atherosclerosis of renal artery; I73.9 Peripheral vascular disease, unspecified; R42 Dizziness and giddiness; I65.23 Occlusion and stenosis of bilateral carotid arteries
CPT/HCPCS: 93880

== ENCOUNTER → 2021-09-10 14:06 | Outpatient (CLI) | payer MEDICARE, OTHER, SELFPAY ==
[2021-09-10 15:59] LABS: Free T4 (Free Thyroxine) 1.31 ng/dl (0.78-2.19)
[2021-09-10 16:13] LABS: Thyroid Stimulating Hormone 1.08 uIU/mL (0.465-4.68)
== END ==
PROVIDERS: Visit Provider Specialist
DX: G47.33 Obstructive sleep apnea (adult) (pediatric) (principal); I10 Essential (primary) hypertension; R53.83 Other fatigue
CPT/HCPCS: 36415; 84439; 84443

== ENCOUNTER → 2021-09-24 20:17 | Outpatient (CLI) | payer MEDICARE, OTHER, SELFPAY | PROVIDERS: PCP Family Medicine; Visit Provider Nurse Practitioner Family | DX: G47.33 Obstructive sleep apnea (adult) (pediatric) (principal); G47.34 Idiopathic sleep related nonobstructive alveolar hypoventilation; Z99.89 Dependence on other enabling machines and devices | CPT/HCPCS: 95811 ==

== ENCOUNTER 2021-10-21 11:51 | Emergency (ER) | payer MEDICARE, OTHER, SELFPAY ==
[2021-10-21 14:11] VITALS: BP 163/71; PULSE 68; RESP 18; TEMP 37.1; O2SAT 98; BMI 24.7
--- NOTE | 2021-10-21 14:12 | HMH.EDUTC ---
[facility] [place] Disposition Clinical Impression: Sinusitis Qualifiers: Sinusitis location: unspecified location Chronicity: acute Recurrence: non-recurrent Qualified Code(s): J01.90 - Acute sinusitis, unspecified Disposition: Home, Self-Care Condition on Discharge: Good Instructions: DI for Sinusitis Additional Instructions: Drink plenty of fluids. Take tylenol or ibuprofen for pain or fever. Take the medications as directed. Follow up with your regular doctor. GO TO THE ER FOR ANY WORSENING SYMPTOMS Don't start the oral steroids until tomorrow, since you had the shot here today. Prescriptions: Benzonatate [Benzonatate 100mg cap] 100 mg PO TIDP PRN #30 cap PRN Reason: Cough Transmission Status: Pending to [facility] methylPREDNISolone [Medrol] 4 mg PO DIRECTED 6 Days #21 packet Transmission Status: Pending to [facility] Azithromycin [Z-Murali 250mg Tab*] 250 mg PO UD DOSE PK #6 tab Transmission Status: Pending to [facility] Referrals: Tariq Betancourt MD [Primary Care Provider] - Time of Disposition: 14:30 Medical Decision Making - Medical Records Medical records reviewed: No: I reviewed the patient's medical records. - Davin Inquiry Pt receiving controlled substance: No Vital Signs: 10/21/21 14:11 Temperature 98.7 F Temperature Source Oral Pulse Rate [Left] 68 Respiratory Rate 18 Blood Pressure [Right Arm] 163/71 H Blood Pressure Mean [Right Arm] 101 02 Sat by Pulse Oximetry 98 [facility] [place] HPI - General Stated complaint: sinus/head congestion Time Seen by Provider: 10/21/21 14:13 - History of Present Illness Provider Complaint: She c/o sinus congestion, sinus pressure, a nonproductive cough. She denies any fever or chills. She states that she gets sinus infections in the fall and winter like this and it is sometimes hard to get them better. She was treated with oral antibiotics about a month ago by her pcp for this same issue. She states that she did get better, but now her symptoms have returned. - Related Data Home Medications Medication Instructions Recorded Confirmed meloxicam 15 mg tablet 15 mg PO DAILY 09/13/19 09/15/21 aspirin 81 mg tablet,delayed 81 mg PO DAILY 03/20/21 09/15/21 release atorvastatin 10 mg tablet 40 mg PO HS tab 03/20/21 09/15/21 calcium carbonate 600 mg-vitamin 1 tab PO DAILY 03/20/21 09/15/21 D3 5 mcg (200 unit) tablet cholecalciferol (vitamin D3) 25 25 mcg PO DAILY 03/20/21 09/15/21 mcg (1,000 unit) capsule fluticasone propionate 50 2 spray INTRANASAL DAILY g 03/20/21 09/15/21 mcg/actuation nasal spray,suspension nitroglycerin 0.4 mg sublingual 0.4 mg SUBLINGUAL Q5-15M PRN tab 03/20/21 09/15/21 tablet omeprazole 40 mg capsule,delayed 40 mg PO DAILY cap 03/20/21 09/15/21 release benazepril 20 mg tablet 20 mg PO BID tab 09/15/21 09/15/21 Previous Rx's Medication Instructions Recorded clopidogrel 75 mg tablet 75 mg PO DAILY #30 tab 07/03/21 hydrochlorothiazide 12.5 mg tablet 12.5 mg PO Q OTHER DAY #15 tab 07/17/21 metoprolol succinate 50 mg 50 mg PO DAILY #90 tab 08/25/21 tablet,extended release 24 hr Azithromycin [Z-Murali 250mg Tab*] 250 mg PO UD DOSE PK #6 tab 10/21/21 Benzonatate [Benzonatate 100mg 100 mg PO TIDP PRN #30 cap 10/21/21 cap] methylPREDNISolone [Medrol] 4 mg PO DIRECTED 6 Days #21 10/21/21 packet Allergies Allergy/AdvReac Type Severity Reaction Status Date / Time cefdinir [From Omnicef] Allergy Intermediate disoriented Verified 09/15/21 13:00 ibandronate sodium Allergy Intermediate BP high & Verified 09/15/21 13:00 [From Boniva] low moxifloxacin [From Avelox] Allergy Unknown Verified 09/15/21 13:00 [facility] History - Hepatitis A Screen Attestation statement:: This patient has been screened for Hepatitis A risk factors. I have reviewed the patient's past medical history: Yes Medical History: Reports:: Hyperlipidemia, Hypertension, Maddie
[2021-10-21 14:56] VITALS: BP 163/71; PULSE 68; RESP 18; TEMP 37.1
== END 2021-10-21 14:57 | disposition home or self-care (01) ==
PROVIDERS: Emergency Provider Nurse Practitioner Family; PCP Family Medicine
DX: J01.90 Acute sinusitis, unspecified (principal); Z20.822 Contact with and (suspected) exposure to COVID-19; I10 Essential (primary) hypertension; E78.5 Hyperlipidemia, unspecified; F17.210 Nicotine dependence, cigarettes, uncomplicated; Z79.899 Other long term (current) drug therapy
CPT/HCPCS: G0463; 96372; 99202; C9803; U0003; U0005

== ENCOUNTER 2021-11-11 12:04 | Emergency (ER) | payer MEDICARE, OTHER, SELFPAY ==
[2021-11-11 13:20] VITALS: BP 168/81; PULSE 72; RESP 18; TEMP 36.7; O2SAT 98; BMI 24.7
--- NOTE | 2021-11-11 13:59 | HMH.EDUTC ---
[facility] [place] Disposition Clinical Impression: Sinusitis Qualifiers: Sinusitis location: unspecified location Chronicity: unspecified Qualified Code(s): J32.9 - Chronic sinusitis, unspecified Disposition: Home, Self-Care Condition on Discharge: Good Instructions: Sinusitis, DI for Sinusitis Additional Instructions: *Monitor Temp, Over the counter Motrin or Tylenol as directed/as needed Tylenol every 4 hours and Motrin every 6 hours (as long as your family doctor has told you that you can take it) for fever or pain. and straight to ER if unable to lower temp less than 101.0 after medication given *Warm salt water gargles may help to soothe the throat *Throat Lozenges *Warm fluids like tea with honey may help to soothe the throat *Sleep elevated *Humidifier/Vaporizer *Flonase 2 sprays in each nostril daily but be aware that it may take 2-3 days before you notice improvement Take medication as prescribed Start oral steriods tomorrow Follow up IMMEDIATELY for new or worsening symptoms or no Noticeable improvement over the next 48-72 hours. 911 for difficulty breathing or swallowing Prescriptions: Benzonatate [Benzonatate 100mg cap] 100 mg PO Q8HP PRN #30 cap PRN Reason: Cough Transmission Status: Received by [facility] methylPREDNISolone [Medrol 4mg tab] 4 mg PO DIRECTED #21 tab Transmission Status: Received by [facility] Azithromycin [Z-Murali 250mg Tab*] 250 mg PO UD DOSE PK #6 tab Transmission Status: Received by [facility] Referrals: Tariq Betancourt MD [Primary Care Provider] - As needed Time of Disposition: 14:13 Medical Decision Making - Davin Inquiry Pt receiving controlled substance: No Davin was queried for this patient: No Vital Signs: 11/11/21 13:20 11/11/21 14:16 Temperature 98.0 F 98.0 F Temperature Source Oral Pulse Rate 72 Pulse Rate [Right Brachial] 72 Respiratory Rate 18 18 Blood Pressure 168/81 H Blood Pressure [Right Arm] 168/81 H Blood Pressure Mean [Right Arm] 110 Blood Pressure Source [Right Arm] Automatic Cuff Blood Pressure Position [Right Arm] Sitting 02 Sat by Pulse Oximetry 98 Oxygen Delivery Method Room Air Orders (Tests/Meds): ED MEDICATIONS Discontinued Medications Generic Name Dose Route Start Last Admin Trade Name Vera PRN Reason Stop Dose Admin Methylprednisolone Sodium Succinate 125 mg 11/11/21 14:06 11/11/21 14:14 Methylprednisolone Sod Succ 125mg Vial IM 11/11/21 14:07 125 mg ONCE ONE Administration Medical Decision Narrative: Patient state that she has taken solu medrol and azithromycin in the past without reaction or complications [facility] [place] HPI - General Stated complaint: possible sinus infection Time Seen by Provider: 11/11/21 13:59 Mode of Arrival: Ambulatory Source of Information: Patient Limitations: No Limitations Description of Symptoms (Recalled from Triage Doc. by RN): PATIENT C/O COUGH, SINUS DRAINAGE/PRESSURE, AND HEADACHE SINCE WEDNESDAY HEENT Symptoms (Recalled from RN notes): Yes Resp Symptoms (Recalled from RN notes): Yes Skin Symptoms (Recalled from RN notes): No MS Symptoms (Recalled from RN notes): No Functional Status (Recalled from RN notes): WNL - History of Present Illness Provider Complaint: Patient state that she gets sinus infections States that she felt it coming on about a week ago States that she is having pressure behind her eyes and in her sinuses and it making her head hurt State that she can get mucous out occasionally and it is yellowish green Feels like it did before when she had a sinus infection - Related Data Home Medications Medication Instructions Recorded Confirmed meloxicam 15 mg tablet 15 mg PO DAILY 09/13/19 09/15/21 aspirin 81 mg tablet,delayed 81 mg PO DAILY 03/20/21 09/15/21 release atorvastatin 10 mg tablet 40 mg PO HS tab 03/20/21 09/15/21 calcium carbonate 600 mg-vitamin 1 tab PO DAILY 03/20/21 09/15/21 D3 5 mcg (200 unit) tab
[2021-11-11 14:16] VITALS: BP 168/81; PULSE 72; RESP 18; TEMP 36.7; O2SAT 98
== END 2021-11-11 14:28 | disposition home or self-care (01) ==
PROVIDERS: Emergency Provider Nurse Practitioner; PCP Family Medicine
DX: J32.9 Chronic sinusitis, unspecified (principal); E78.5 Hyperlipidemia, unspecified; I10 Essential (primary) hypertension; F17.210 Nicotine dependence, cigarettes, uncomplicated
CPT/HCPCS: G0463; 96372; 99202

== ENCOUNTER 2021-12-22 12:59 | Emergency (ER) | payer MEDICARE, OTHER, SELFPAY ==
[2021-12-22 14:40] VITALS: BP 142/88; PULSE 74; RESP 18; TEMP 36.9; O2SAT 95; BMI 23.1
--- NOTE | 2021-12-22 14:59 | HMH.EDUTC ---
[facility] [place] Disposition Clinical Impression: Sinusitis Qualifiers: Sinusitis location: unspecified location Chronicity: unspecified Qualified Code(s): J32.9 - Chronic sinusitis, unspecified Disposition: Home, Self-Care Condition on Discharge: Good Instructions: Vertigo, Sinusitis, DI for Sinusitis Additional Instructions: *Monitor Temp, Over the counter Motrin or Tylenol as directed/as needed Tylenol every 4 hours and Motrin every 6 hours (as long as your family doctor has told you that you can take it) for fever or pain. and straight to ER if unable to lower temp less than 101.0 after medication given *Warm salt water gargles may help to soothe the throat *Throat Lozenges *Warm fluids like tea with honey may help to soothe the throat *Sleep elevated *Humidifier/Vaporizer *Flonase 2 sprays in each nostril daily but be aware that it may take 2-3 days before you notice improvement Take medication as prescribed make sure to sit at the edge of chair and let legs dangle and stand slowly if you continue to have dizziness Return if needed Straight to ER if any life threatening symptoms or worsening of dizziness Follow up IMMEDIATELY for new or worsening symptoms or no Noticeable improvement over the next 48-72 hours. 911 for difficulty breathing or swallowing Prescriptions: Meclizine HCl 12.5 mg PO Q8HP PRN #9 tab PRN Reason: Dizziness Transmission Status: Received by [facility] Doxycycline Monohydrate [Doxycycline [place] 100mg Tab] 100 mg PO Q12 10 Days #20 tab Transmission Status: Received by [facility] methylPREDNISolone [Medrol 4mg tab] 4 mg PO DIRECTED #21 tab Transmission Status: Received by [facility] Referrals: Tariq Betancourt MD [Primary Care Provider] - As needed Time of Disposition: 15:10 Medical Decision Making - Davin Inquiry Pt receiving controlled substance: No Davin was queried for this patient: No Vital Signs: 12/22/21 14:40 Temperature 98.5 F Temperature Source Oral Pulse Rate [Right Brachial] 74 Respiratory Rate 18 Blood Pressure [Right Arm] 142/88 H Blood Pressure Mean [Right Arm] 106 Blood Pressure Source [Right Arm] Automatic Cuff Blood Pressure Position [Right Arm] Sitting 02 Sat by Pulse Oximetry 95 Oxygen Delivery Method Room Air Orders (Tests/Meds): ED MEDICATIONS Discontinued Medications Generic Name Dose Route Start Last Admin Trade Name Vera PRN Reason Stop Dose Admin Meclizine HCl 12.5 mg 12/22/21 15:04 12/22/21 15:12 Meclizine 12.5mg Tablet PO 12/22/21 15:05 12.5 mg ONCE ONE Administration Methylprednisolone Sodium Succinate 125 mg 12/22/21 15:15 12/22/21 15:24 Methylprednisolone Sod Succ 125mg Vial IM 12/22/21 15:16 125 mg ONCE ONE Administration Medical Decision Narrative: Medication discussed and dosed per pharmacy States that dizziness now gone after medication [facility] [place] HPI - General Stated complaint: sinus pain and pressure, cough, runny nose, headac Time Seen by Provider: 12/22/21 14:59 Mode of Arrival: Ambulatory Source of Information: Patient, Relative Limitations: No Limitations Description of Symptoms (Recalled from Triage Doc. by RN): PATIENT C/O COUGH, SINUS DRAINAGE/PRESSURE, HEADACHE X 2 WEEK; DIZZINESS X 3-4 DAYS HEENT Symptoms (Recalled from RN notes): Yes Resp Symptoms (Recalled from RN notes): Yes Skin Symptoms (Recalled from RN notes): No MS Symptoms (Recalled from RN notes): No Functional Status (Recalled from RN notes): WNL - History of Present Illness Provider Complaint: Patient states that she has been having sinus pain and pressure, cough, and feeling dizzy at times when she gets up States that dizzy feeling has been coming and going for the last 3 days and she has that sometimes when she gets a sinus infection States that if she stands - Related Data Home Medications Medication Instructions Recorded Confirmed meloxicam 15 mg tablet 15 mg PO DAILY 09/13/19
[2021-12-22 15:32] VITALS: BP 142/88; PULSE 74; RESP 18; TEMP 36.9; O2SAT 95
== END 2021-12-22 15:34 | disposition home or self-care (01) ==
PROVIDERS: Emergency Provider Nurse Practitioner; PCP Family Medicine
DX: R42 Dizziness and giddiness (principal); J32.8 Other chronic sinusitis; R51.9 Headache, unspecified; I10 Essential (primary) hypertension; I73.9 Peripheral vascular disease, unspecified; I25.10 Atherosclerotic heart disease of native coronary artery without angina pectoris; E78.5 Hyperlipidemia, unspecified; M19.90 Unspecified osteoarthritis, unspecified site; F17.210 Nicotine dependence, cigarettes, uncomplicated; Z20.822 Contact with and (suspected) exposure to COVID-19; Z79.51 Long term (current) use of inhaled steroids; Z79.52 Long term (current) use of systemic steroids; Z79.82 Long term (current) use of aspirin; Z79.899 Other long term (current) drug therapy; Z88.8 Allergy status to other drugs, medicaments and biological substances; Z96.642 Presence of left artificial hip joint; Z91.81 History of falling; Z82.49 Family history of ischemic heart disease and other diseases of the circulatory system
CPT/HCPCS: G0463; 96372; 99202; 99212; 99213

== ENCOUNTER → 2022-02-27 08:39 | Outpatient (CLI) | payer MEDICARE, OTHER, SELFPAY ==
--- NOTE | 2022-02-27 08:44 | XR_ITS ---
FINAL REPORT TECHNIQUE: Bone densitometry calculations of the lumbar spine and left hip were obtained. CLINICAL HISTORY: . post menopausal screening FINDINGS: Using L1-4, the bone mineral density of the spine is 1.042 g/cm2, previously 0.982 g/cm2, corresponding to T-score of 0.0, previously -0.6, which is normal but is likely falsely elevated secondary to hypertrophic change. Using the right hip, the bone mineral density of the femoral neck is 0.706 g/cm2, previously 0.740 g/cm2, corresponding to a T-score of -1.9, previously -1.7. Using the 1/3 radius, the bone mineral density of the 1/3 radius is 0.528 g/cm2, previously 0.550 g/cm2, corresponding to a T-score of -2.8, previously -2.4. NOTE: T-score: Standard deviation compared with peak bone mass of young adult mean. *Following the recommendations of the International Society of Bone Densitometry, classification of hip BMD is based on the lower of two T-scores; total hip or femoral neck. IMPRESSION: Osteoporosis: Lowest T-score is at or below -2.5. This patient's T-score meets the World Health Organization criteria for osteoporosis. FRAX data was not reported because the patient was treated for osteoporosis. Reviewed, Interpreted and Dictated by Tucker Nichols III, MD Transcribed by Chika Kebede Authenticated by Tucker Nichols III, MD on 02/27/2022 10:23:44 AM [facility]
--- NOTE | 2022-02-27 08:44 | MM_ITS ---
PROCEDURE INFORMATION: Exam: MG Bilateral Screening 3D Mammography Exam date and time: 02/27/2022 8:42 AM Age: 71 years old Clinical indication: Screening examination TECHNIQUE: Imaging protocol: Bilateral Screening tomosynthesis and 2D mammography including computer-aided detection (CAD) when performed. COMPARISON: 1. MG MM DIG SCREENING MAMM BI W/CAD 09/03/2020 9:32 AM 2. MG MM DIG MAMM BI DX W/CAD 10/06/2019 1:40 PM 3. MG MM DIG SCREENING MAMM BI W/CAD 09/01/2019 8:04 AM 4. MG SCBI MM Dig screening mamm BI w/CAD 03/21/2018 9:13 AM FINDINGS: MAMMOGRAPHY: Breast composition: The breast is heterogeneously dense, which may obscure small masses. Mass: None. Architectural distortion: No new or suspicious architectural distortion. Calcifications: No new or suspicious calcifications are present Asymmetric density: No new or suspicious asymmetric density is present Skin thickening: None. Axillary adenopathy: None. IMPRESSION: No mammographic evidence of malignancy. Recommend annual screening mammography unless otherwise clinically indicated. ASSESSMENT: BI-RADS category 1: Negative
== END ==
PROVIDERS: PCP Family Medicine; Visit Provider Family Medicine
DX: Z12.31 Encounter for screening mammogram for malignant neoplasm of breast (principal); Z78.0 Asymptomatic menopausal state
CPT/HCPCS: 77063; 77067; 77080

== ENCOUNTER → 2022-06-10 07:32 | Outpatient (CLI) | payer MEDICARE, OTHER, SELFPAY ==
--- NOTE | 2022-06-10 07:34 | CT_ITS ---
FINAL REPORT CLINICAL HISTORY: TOBACCO USE DISORDER. smoker 1 ppd x 50 years. COPD no family hx of cancer COMPARISON: 09/01/2019 and 02/28/2021 FINDINGS: Low-Dose Chest CT Axial images were obtained from the lung apex to the mid abdomen by computed tomography. Low-dose protocol was utilized. CTDI vol (mGy): 2.90 DLP (mGy-cm): 104.99 There is no axillary adenopathy. There is no hilar or mediastinal adenopathy. The heart is proper size. There are severe coronary artery calcifications. There is no pericardial or pleural effusion. Limited images of the upper abdomen are unremarkable. Lung window images demonstrate mild changes of emphysema with mild pulmonary scarring. There is a stable 5 mm right lung base nodule. There is a stable 6 mm nodule in the lateral left lower lobe. There are 2 smaller nodules anterior to this one in the left lower lobe that are also stable. IMPRESSION: Stable bilateral nodules as described. Modifier S: Severe coronary artery calcifications. Lung RADS category 1 secondary to stability. Recommend 12 month follow-up low-dose chest CT. Reviewed, Interpreted and Dictated by Tucker Nichols III, MD Transcribed by Madison Pérez Authenticated and [facility]
[2022-06-10 08:30] VITALS: PULSE 68; PULSE 70
== END ==
PROVIDERS: PCP Family Medicine; Visit Provider Family Medicine
DX: Z87.891 Personal history of nicotine dependence (principal); Z12.2 Encounter for screening for malignant neoplasm of respiratory organs; R06.02 Shortness of breath
CPT/HCPCS: 71271; 94060; 94640; 94727; 94729

== ENCOUNTER 2022-06-25 11:00 | Outpatient (RCR) | payer MEDICARE, OTHER, SELFPAY ==
--- NOTE | 2022-06-09 08:43 | HMH.PTOPWND ---
Rehab Outpt Wound Evaluation Rehab OP Wound Evaluation Start: 06/09/22 08:33 Freq: Status: Active Protocol: Document 06/09/22 08:33 [email or web address] (Rec: 06/09/22 08:42 [email or web address] [id number]) Electronically Signed By Suleiman Salgado, FOX 06/09/22 08:33 Subjective/History History History This is the initial Physical therapy wound and lymphedema clinic evaluation for Antonia Pickens. Pt is a 71 y/o female referred to wound/lymphedema care for recurring swelling and irritations in BLE. Pt reports in March of 2021 she had inguinal stents placed to increase LE blood flow. Pt notes that ~ 1 week later she began having swelling in BLE ankles and feet. Pt reports some pain in B ankles and irritation on B lateral maleoli. Pt reports swelling and pain increase as day goes on and when she is on her feet Subjective Subjective Pt reports TTP along L lateral maleolus Wound Eval Wound Right Lower Leg Wound Type edema Surrounding Tissue Appearance Edematous Edema Type Pitting Edema Degree 2+ Query Text:1+ Trace, Barely Detectable, Rebound 15-30 seconds 2+ Moderate, Slight Indentation, Rebound 10-20 seconds 3+ Deep, Deeper Indentation, Rebound > 30 seconds 4+ Very Deep, Rebound > 60 seconds Edema Appearance Shiny Surrounding Tissue Temperature Cool Drainage Amount None Drainage Odor No Odor Wound Debridement Amount of Tissue None Removed Left Lower Leg Wound Type edema Edema Type Pitting Edema Degree 2+ Query Text:1+ Trace, Barely Detectable, Rebound 15-30 seconds 2+ Moderate, Slight Indentation, Rebound 10-20 seconds 3+ Deep, Deeper Indentation, Rebound > 30 seconds 4+ Very Deep, Rebound > 60 seconds Edema Appearance Shiny Drainage Amount None Drainage Odor No Odor Wound Debridement Amount of Tissue None Removed Dressing Change Patient Tolerance Tolerated Well Wound Problems/Impairments Impairments Prob
== END 2022-06-25 11:05 | disposition home or self-care (01) ==
LOC: PT 11:00
PROVIDERS: PCP Family Medicine; Visit Provider Family Medicine
DX: L97.321 Non-pressure chronic ulcer of left ankle limited to breakdown of skin (principal)
CPT/HCPCS: 97140; 97162

== ENCOUNTER → 2022-09-14 10:35 | Outpatient (POV) | payer MEDICARE, OTHER, SELFPAY ==
[2022-09-14 11:16] VITALS: BP 167/61; PULSE 73; RESP 18; O2SAT 99; BMI 22.4
--- NOTE | 2022-09-14 12:04 | EXP.PAIN.SOA ---
[facility] Pain Management SOAP Note Subjective:: Patient is a pleasant 72-year-old female who presents today for follow-up. We are currently treating the patient for degenerative disc disease of lumbar spine with lumbar facet arthropathy and lumbar spondylosis. Today the patient rates her pain a 4 out of 10. Patient states the pain is all in her low back along with some hip pain. Patient denies any new trauma or injury. Patient denies any change location or type of pain she experiences. In the past the patient has had medial branch blocks that provided 80 to 90% relief lasting approximately 3 to 4 months. Patient does state that she has had this pain going on for years. She states that she did have a left hip replacement by Dr. Chung that provided significant improvement and she was scheduled for her right however COVID happened and she is not proceeded forward with this total replacement at this time. Patient does state that she previously saw Dr. Francis for some circulation issues however now Dr. Betancourt prescribes her Plavix. Patient states it was issues with her bilateral legs and poor circulation and ended up having several stents placed in her legs. Patient denies any further issues. Patient does state that she does have occasionally red swollen joints such as in her hands and along her ankles that she believes is arthritis. Patient is not currently on any scheduled medications. Her Davin is [phone]. It is been reviewed and appropriate. Review of Systems: General: No recent weight changes, no fever, no sleep disturbances Respiratory: No cough, no shortness of air, no recurring pulmonary infections Cardiovascular/peripheral vascular: No chest pain, no palpitations, no edema, no shortness of breath Gastrointestinal: No new onset incontinence, normal bowel movements reported Genitourinary: No new onset incontinence Musculoskeletal: Low back pain, hip pain Psychiatric: [Normal mood/affect] Neurological: [Denies weakness in extremities], [denies balance issues] Objective:: Physical Exam: General: Alert and oriented x3, no acute distress, pleasant and cooperative Lungs: Respirations even and unlabored, symmetrical chest expansion Eyes: PERRL Musculoskeletal: Flexion and extension of lumbar [spine] somewhat guarded secondary to pain, [antalgic gait noted]. Positive Kemps test Neurological: Speech clear, no gross sensory deficit Assessment:: Degenerative disc disease of lumbar spine with lumbar facet arthropathy and lumbar spondylosis Plan:: Patient is experiencing significant pain in her low back during today's visit. She did present with limited range of motion of her lumbar spine and a positive Kemps test. I have discussed with the patient regarding having repeat medial branch blocks. Risk and benefits were discussed with the patient. She would like to proceed forward with this plan of care. I will also prescribe the patient a compounding cream at today's visit. We will schedule the patient for a medial branch block L4-L5 and L5-S1 bilaterally. Patient has been instructed to contact the clinic with any concerns before the next appointment. Dr. Varela has reviewed this note and agrees with this plan of care. This note was dictated using voice recognition software and make contain errors or omissions. [facility] Medical History (Updated 12/22/21 @ 15:09 by Isha Weems APRN) Claudication Edema of left lower extremity Pain in left lower leg Renal artery stenosis Social History Smoking Status: Current every day smoker tobacco type: cigarettes packs per day: 1 alcohol intake: never substance use type: denies use current occupational status: retired Travel in the last 8 weeks: None household members: spouse housing: house current occupational exposures/hazards: No caffeine: Yes
== END ==
PROVIDERS: PCP Family Medicine; Visit Provider Nurse Practitioner Family
DX: M51.36 Other intervertebral disc degeneration, lumbar region (principal); M47.816 Spondylosis without myelopathy or radiculopathy, lumbar region; Z72.0 Tobacco use; Z79.899 Other long term (current) drug therapy
CPT/HCPCS: 99212; G0463

== ENCOUNTER 2022-09-25 09:25 | Day surgery (SDC) | payer MEDICARE, OTHER, SELFPAY ==
[2022-09-25 09:30] VITALS: BP 161/67; PULSE 779; TEMP 36.3; BMI 25.6
[2022-09-25 09:42] VITALS: BP 183/67; PULSE 79; RESP 18; O2SAT 97
[2022-09-25 09:43] VITALS: BP 183/67; PULSE 79; RESP 18; O2SAT 97
[2022-09-25 09:45] VITALS: BP 167/56; PULSE 73; RESP 18; O2SAT 97
--- NOTE | 2022-09-25 09:45 | P.PCN_ITS ---
Procedure Date: 09/25/22 Time: 09:45 Anesthesiologist:: Orion Huang CRNA Complications:: None Pre-procedure Diagnosis:: Degenerative disc disease lumbar spine multilevels. Lumbar radiculopathy. Lumbar spondylosis. Multilevel lumbar facet arthropathy Post-procedure Diagnosis:: Same. Indications for Procedure:: Very pleasant 72-year-old female that comes our clinic today for bilateral lumbar medial branch block L4-5, L5-S1. Patient has had these in the past. She reports 6 months of relief in terms of her low back pain. Patient describes her low back pain as constant, dull, aching. Axial in nature. Pain increases with flexion and/or extension. Procedure Details:: Informed consent was obtained and the risk and benefits of the procedure was explained to the patient. Patient was taken to the procedure room where noninvasive monitors were placed, including noninvasive blood pressure cuff as well as pulse oximeter. The area over the lumbar spine was cleansed using chlorhexidine as a cleansing solution. I anesthetized the skin and subcutaneous tissues with 1% Lidocaine. I placed 22-gauge spinal needles into the facet joint/ medial branches of L4-L5, and L5-S1 bilaterally. Needle placement was confirmed with fluoroscopy. After confirmation of needle placement, each site was injected with 1 mL of 1% lidocaine and 0.25 % Marcaine and 10 mg of Depo- Medrol. A total of 80 mg of depo medrol was used for bilateral medial branch blocks of L4-L5, and L5-S1 bilaterally. Patient tolerated the procedure without difficulty. There were no complications. Plan and Disposition:: Patient was discharged without incident.
== END 2022-09-25 09:47 | disposition home or self-care (01) ==
PROVIDERS: PCP Family Medicine; Visit Provider Nurse Anesthetist, Certified Registered
DX: M51.16 Intervertebral disc disorders with radiculopathy, lumbar region (principal); M47.896 Other spondylosis, lumbar region
CPT/HCPCS: 64493; 64494; J1030

== ENCOUNTER → 2022-10-13 09:37 | Outpatient (CLI) | payer MEDICARE, OTHER, SELFPAY ==
[2022-10-13 09:50] VITALS: BP 154/66; PULSE 79; RESP 20; O2SAT 98; BMI 24.7
--- NOTE | 2022-10-13 09:56 | EXP.PAIN.SOA ---
[facility] Pain Management SOAP Note Subjective:: Patient is a pleasant 72-year-old female who presents today for follow-up of lumbar medial branch block at L4-L5 and L5-S1 bilaterally on 09/25/2022. We are currently treating the patient for degenerative disc disease of lumbar spine multilevels with lumbar radiculopathy symptoms, lumbar spondylosis, multilevel lumbar facet arthropathy. Today the patient states that she has had at least 80% improvement following this procedure and feels like it is still providing significant relief. Patient rates her pain today a 0 out of 10. Patient denies any new trauma or injury. Patient denies any change location or type of pain she experiences. Patient is prescribed compounding cream that provides additional relief of some of her symptoms. Patient did have her left hip replaced by Dr. Chung and was scheduled to have her right done however this was put on hold with [facility] and has not been rescheduled. Patient does have a history of multiple stents in her legs and is on Plavix that is prescribed by her primary care provider. Patient does continue to have arthritis in her joints and takes meloxicam to help relieve some of the symptoms. P her Davin is [id number]. It is been reviewed and appropriate. Review of Systems: General: No recent weight changes, no fever, no sleep disturbances Respiratory: No cough, no shortness of air, no recurring pulmonary infections Cardiovascular/peripheral vascular: No chest pain, no palpitations, no edema, no shortness of breath Gastrointestinal: No new onset incontinence, normal bowel movements reported Genitourinary: No new onset incontinence Musculoskeletal: Low back pain Psychiatric: [Normal mood/affect] Neurological: [Denies weakness in extremities], [denies balance issues] Objective:: Physical Exam: General: Alert and oriented x3, no acute distress, pleasant and cooperative Lungs: Respirations even and unlabored, symmetrical chest expansion Eyes: PERRL Musculoskeletal: Flexion and extension of lumbar [spine] somewhat guarded secondary to pain, [antalgic gait noted] Neurological: Speech clear, no gross sensory deficit Assessment:: Degenerative disc disease of lumbar spine multilevels with lumbar radiculopathy symptoms, lumbar spondylosis, multilevel lumbar facet arthropathy Plan:: Patient has had significant improvement of her pain symptoms in her low back following her medial branch block. At this time the patient does not require any additional injective therapy. Patient is scheduled to leave for [place] on November 03 and will not return until sometime in February. Patient will contact our office for her next follow-up visit. Patient has been instructed to contact the clinic with any concerns before the next appointment. Dr. Varela has reviewed this note and agrees with this plan of care. This note was dictated using voice recognition software and make contain errors or omissions. [facility] Disclaimer: The information contained in this section may have been updated after the patient was seen, as this information can be updated by other users. Medical History Claudication Edema of left lower extremity Pain in left lower leg Renal artery stenosis Family History Other No significant family history Social History Smoking Status: Current every day smoker tobacco type: cigarettes packs per day: 1 alcohol intake: never substance use type: denies use current occupational status: retired Travel in the last 8 weeks: None household members: spouse housing: house current occupational exposures/hazards: No caffeine: Yes
== END ==
PROVIDERS: PCP Family Medicine; Visit Provider Nurse Practitioner Family
DX: M51.16 Intervertebral disc disorders with radiculopathy, lumbar region (principal); M47.26 Other spondylosis with radiculopathy, lumbar region; Z72.0 Tobacco use
CPT/HCPCS: 99212; G0463

== ENCOUNTER → 2023-03-15 07:51 | Outpatient (CLI) | payer MEDICARE, OTHER, SELFPAY | PROVIDERS: PCP Family Medicine; Visit Provider Family Medicine | DX: I10 Essential (primary) hypertension (principal); R06.09 Other forms of dyspnea | CPT/HCPCS: 93306 ==

== ENCOUNTER → 2023-06-28 11:24 | Outpatient (POV) | payer MEDICARE, OTHER, SELFPAY ==
--- NOTE | 2023-06-28 11:59 | EXP.PAIN.SOA ---
[facility] Pain Management SOAP Note Subjective:: Patient is a pleasant 72-year-old female who presents today for follow-up. We are currently treating the patient for degenerative disc disease of lumbar spine with lumbar radicular colopathy symptoms, lumbar spondylosis, lumbar facet arthropathy. Today she rates her pain a 4 out of 10. Patient denies any new trauma or injury or any change to location or type of pain she experiences. Patient does state her pain is all in her low back and describes it as an aching, throbbing sensation that is worse with increased activity. She does state the pain is worse with bending, twisting or lifting. Patient states that she has been doing more activity over this summer and started to notice her pain increased over the last few months. Patient has had a lumbar medial branch block bilaterally L4-L5 and L5-S1 back in September that has provided more than 80% improvement up until a couple months ago. Patient has had additional injections back in 2020 that also provided significant relief. Patient is interested in repeating these injections during today's visit. Patient is not on any scheduled medications. Her Davin is [id number]. Its been reviewed and appropriate. Review of Systems: General: No recent weight changes, no fever, no sleep disturbances Respiratory: No cough, no shortness of air, no recurring pulmonary infections Cardiovascular/peripheral vascular: No chest pain, no palpitations, no edema, no shortness of breath Gastrointestinal: No new onset incontinence, normal bowel movements reported Genitourinary: No new onset incontinence Musculoskeletal: Low back pain Psychiatric: [Normal mood/affect] Neurological: [Denies weakness in extremities], [denies balance issues] Objective:: Physical Exam: General: Alert and oriented x3, no acute distress, pleasant and cooperative Lungs: Respirations even and unlabored, symmetrical chest expansion Eyes: PERRL Musculoskeletal: Flexion and extension of lumbar [spine] somewhat guarded secondary to pain, [antalgic gait noted] positive Kemps test Neurological: Speech clear, no gross sensory deficit Assessment:: Degenerative disc disease of lumbar spine with lumbar radiculopathy symptoms, lumbar spondylosis, lumbar facet arthropathy Plan:: Patient is experiencing worsening pain in her low back with a positive Kemps test and limited range of motion of her lumbar spine. I have discussed with the patient that she may benefit from a repeat lumbar medial branch block bilaterally. Risk and benefits were explained to the patient and she would like to proceed forward with this plan of care. Patient is currently on blood thinners that is prescribed by Dr. Giuliano leonard. We will contact his office to confirm she can stop this medication prior to this injection. Patient did previously have 80% improvement from her last lumbar medial branch block lasting approximately 7 months. During that time the patient was able to increase her activity and felt overall more functional. We will schedule the patient for a lumbar medial branch block bilaterally L4-L5 and L5-S1. Patient has been instructed to contact the clinic with any concerns before the next appointment. Dr. Varela has reviewed this note and agrees with this plan of care. This note was dictated using voice recognition software and make contain errors or omissions. [facility] Disclaimer: The information contained in this section may have been updated after the patient was seen, as this information can be updated by other users. Medical History Claudication Edema of left lower extremity Pain in left lower leg Renal artery stenosis Suspected secondary hypertension Tobacco abuse Currently working on decreasing sugars per day, (average 15 at this time) Family History Other No significant family history Social History (Revjolene
[2023-06-28 12:44] VITALS: BP 131/58; PULSE 66; RESP 18; O2SAT 93; BMI 24.7
== END ==
PROVIDERS: PCP Family Medicine; Visit Provider Nurse Practitioner Family
DX: M51.16 Intervertebral disc disorders with radiculopathy, lumbar region (principal); M47.26 Other spondylosis with radiculopathy, lumbar region
CPT/HCPCS: 99212; G0463

== ENCOUNTER → 2023-08-06 13:08 | Outpatient (POV) | payer MEDICARE, OTHER, SELFPAY ==
[2023-08-06 13:25] VITALS: BP 133/52; PULSE 62; RESP 18; O2SAT 94; BMI 24.7
--- NOTE | 2023-08-06 15:37 | A.OFFVIS_ITS ---
[facility] Pain Management SOAP Note Subjective:: This patient is a very pleasant 73-year-old very active female that comes our clinic today for follow-up visit after receiving denial from insurance regarding facet injections/medial branch block L4-5, L5-S1 bilaterally. Patient's last imaging on the lumbar spine was 06/30/2016. At that time imaging did show bilateral facet hypertrophy L3-4, L4-5, L5-S1. However, we will update lumbar imaging to help in seeking approval for facet block/medial branch blocks L4-5, L5-S1 bilaterally. Patient describes low back pain as constant, dull, aching. Patient has difficulty with extension in the lumbar spine. Flexion increases relief due to facet hypertrophy. Patient is difficulty with left and/or right rotation. She rates her pain 7/10. Patient has tried and failed conservative treatment such as physical therapy, home exercise program, NSAIDs and acetaminophen. She has point tenderness over the bilateral lumbar facets upon examination. Her Davin #[id number] has been reviewed and appropriate. Objective:: Patient is awake alert Clifford x3. In no acute distress. Flexion-extension lumbar spine guarded secondary to pain. Deep tendon reflexes upper lower extremities normal. Motor strength upper and lower extremities normal. There is no gross sensory deficit. Gait is normal. Assessment:: Degenerative disc lumbar spine multilevels. Lumbar radiculopathy. Disc bulge lumbar spine multilevels L4-5, L5-S1. Lumbar facet hypertrophy/arthropathy L3- 4, L4-5, L5-S1. Lumbar spondylosis. Plan:: We will send the patient for lumbar MRI for updated imaging to further discern pathology. Patient will return to the clinic following lumbar MRI. [facility] Disclaimer: The information contained in this section may have been updated after the patient was seen, as this information can be updated by other users. Medical History Claudication Edema of left lower extremity Pain in left lower leg Renal artery stenosis Suspected secondary hypertension Tobacco abuse Currently working on decreasing sugars per day, (average 15 at this time) Family History Other No significant family history Social History Smoking Status: Current every day smoker tobacco type: cigarettes packs per day: 1 alcohol intake: never substance use type: denies use current occupational status: retired Travel in the last 8 weeks: None household members: spouse housing: house current occupational exposures/hazards: No caffeine: Yes
== END ==
PROVIDERS: PCP Family Medicine; Visit Provider Nurse Anesthetist, Certified Registered
DX: M47.896 Other spondylosis, lumbar region (principal); M51.16 Intervertebral disc disorders with radiculopathy, lumbar region
CPT/HCPCS: 99212; G0463

== ENCOUNTER → 2023-08-06 14:34 | Outpatient (CLI) | payer MEDICARE, OTHER, SELFPAY ==
[2023-08-06 15:28] LABS: Chloride 93 mmol/L (98-107); Potassium 4.3 mmoL/L (3.5-5.1); Sodium 128 mmol/L (136-145)
[2023-08-06 15:30] LABS: Alanine Aminotransferase 24 U/L (12-78); Alkaline Phosphatase 79 U/L (38-126); Aspartate Amino Transferase 26 U/L (14-36); Bilirubin,Total 0.3 mg/dl (0.2-1.3); Blood Urea Nitrogen 9 mg/dl (7-17); Estimated Glomerular Filt Rate 97 ml/min (>60); GFR (African American) 118 ML/MIN (>60)
[2023-08-06 15:31] LABS: Albumin Level 3.9 g/dl (3.5-5.0); Albumin/Globulin Ratio 1.6 (1.1-1.8); Anion Gap 9.3 mEq/L (5-15); Calcium 9.1 mg/dl (8.4-10.2); Carbon Dioxide 30 mmol/L (22.0-30.0); Chol/HDL Ratio 3.3 (1-3.5); Cholesterol 164 mg/dl (140-200); Globulin 2.5 g/dL (1.3-3.2); Glucose 108 mg/dl (74-100); HDL Cholesterol 50 mg/dl (40-60); Total Protein,Serum 6.4 g/dl (6.3-8.2); Triglycerides 127 mg/dl (30-150); VLDL Cholesterol 25 mg/dL (0-40)
[2023-08-06 15:42] LABS: Direct LDL Cholesterol 78.18 mg/dL (100-129)
== END ==
PROVIDERS: PCP Family Medicine; Visit Provider Family Medicine
DX: I10 Essential (primary) hypertension (principal); E55.9 Vitamin D deficiency, unspecified; E78.5 Hyperlipidemia, unspecified; Z68.25 Body mass index [BMI] 25.0-25.9, adult; Z87.891 Personal history of nicotine dependence
CPT/HCPCS: 36415; 80053; 80061; 99212; G0463

== ENCOUNTER → 2023-08-12 15:33 | Outpatient (CLI) | payer MEDICARE, OTHER, SELFPAY ==
--- NOTE | 2023-08-12 15:39 | MR_ITS ---
PROCEDURE INFORMATION: Exam: MR Lumbar Spine Without Contrast Exam date and time: 08/12/2023 3:39 PM Age: 73 years old Clinical indication: Low back pain TECHNIQUE: Imaging protocol: Magnetic resonance imaging of the lumbar spine without contrast. COMPARISON: CR HIPCMLT XR hip LT 2-3V w/pelvis 02/23/2018 1:02 PM FINDINGS: Bones/joints: The alignment is near anatomic. The vertebral body heights are maintained. No acute displaced fracture. No suspicious signal of the marrow. Small intraosseous hemangioma in the T12 vertebrae. Spinal cord: Visualized cord, conus medullaris and cauda equina are unremarkable without compression. L1-L2: No significant disc bulge or herniation. No severe spinal canal stenosis. No significant neural foraminal narrowing. L2-L3: L2-L3 minimal saddle shaped disc bulging is seen without significant stenosis. L3-L4: L3-L4 there is mild saddle shaped disc bulging present. The spinal canal is patent. There is degenerative arthrosis of the facets on both sides with mild narrowing of the left neural foramen. L4-L5: L4-L5 diffuse disc bulging and degenerative facet arthrosis is seen without significant stenosis of the spinal canal. There is moderate narrowing of the neural foramina on both sides. L5-S1: L5-S1 minimal diffuse disc bulging and degenerative facet arthrosis is present without stenosis. Soft tissues: Unremarkable. IMPRESSION: Degenerative disc disease without significant spinal canal stenosis, as described.
== END ==
PROVIDERS: PCP Family Medicine; Visit Provider Nurse Practitioner Family
DX: M54.50 Low back pain, unspecified (principal)
CPT/HCPCS: 72148; 76376

== ENCOUNTER → 2023-09-08 12:44 | Outpatient (POV) | payer MEDICARE, OTHER, SELFPAY ==
--- NOTE | 2023-09-08 13:09 | EXP.PAIN.SOA ---
[facility] Pain Management SOAP Note Subjective:: Patient is a pleasant 72-year-old female who presents today for follow-up of lumbar MRI. We are currently treating the patient for degenerative disc disease of lumbar spine multilevels with lumbar radiculopathy symptoms, lumbar spondylosis, multilevel lumbar facet arthropathy. Today she rates her pain a 5 out of 10. Patient denies any new trauma or injury. She still states that she has worsening pain in and around her low back and denies any radiating symptoms into her legs. Patient does describe this as an aching, throbbing sensation that is worse with increased activity such as bending, twisting or lifting. She does state that the pain interferes with her ability perform activities of daily living such as cooking and cleaning. Patient has had significant relief in the past with medial branch blocks however her last 1 was denied by insurance due to not having updated imaging. Patient is on Plavix that is written by Dr. Betancourt's office. She does state that she has recently been to her arthritis doctor who stated that she had osteoarthritis throughout multiple joints. Her Davin is [id number]. It is been reviewed and appropriate. Review of Systems: General: No recent weight changes, no fever, no sleep disturbances Respiratory: No cough, no shortness of air, no recurring pulmonary infections Cardiovascular/peripheral vascular: No chest pain, no palpitations, no edema, no shortness of breath Gastrointestinal: No new onset incontinence, normal bowel movements reported Genitourinary: No new onset incontinence Musculoskeletal: Low back pain Psychiatric: [Normal mood/affect] Neurological: [Denies weakness in extremities], [denies balance issues] Objective:: Physical Exam: General: Alert and oriented x3, no acute distress, pleasant and cooperative Lungs: Respirations even and unlabored, symmetrical chest expansion Eyes: PERRL Musculoskeletal: Flexion and extension of lumbar [spine] somewhat guarded secondary to pain, [antalgic gait noted] positive Kemps test Neurological: Speech clear, no gross sensory deficit PROCEDURE INFORMATION: Exam: MR Lumbar Spine Without Contrast Exam date and time: 08/12/2023 3:39 PM Age: 73 years old Clinical indication: Low back pain TECHNIQUE: Imaging protocol: Magnetic resonance imaging of the lumbar spine without contrast. COMPARISON: CR HIPCMLT XR hip LT 2-3V w/pelvis 02/23/2018 1:02 PM FINDINGS: Bones/joints: The alignment is near anatomic. The vertebral body heights are maintained. No acute displaced fracture. No suspicious signal of the marrow. Small intraosseous hemangioma in the T12 vertebrae. Spinal cord: Visualized cord, conus medullaris and cauda equina are unremarkable without compression. L1-L2: No significant disc bulge or herniation. No severe spinal canal stenosis. No significant neural foraminal narrowing. L2-L3: L2-L3 minimal saddle shaped disc bulging is seen without significant stenosis. L3-L4: L3-L4 there is mild saddle shaped disc bulging present. The spinal canal is patent. There is degenerative arthrosis of the facets on both sides with mild narrowing of the left neural foramen. L4-L5: L4-L5 diffuse disc bulging and degenerative facet arthrosis is seen without significant stenosis of the spinal canal. There is moderate narrowing of the neural foramina on both sides. L5-S1: L5-S1 minimal diffuse disc bulging and degenerative facet arthrosis is present without stenosis. Soft tissues: Unremarkable. IMPRESSION: Degenerative disc disease without significant spinal canal stenosis, as described. Assessment:: Degenerative disc disease of lumbar spine with lumbar radiculopathy symptoms, lumbar spondylosis, lumbar facet arthropathy Plan:: Patient continues to experience significant pain in her low back with limited range of motion. [place]
[2023-09-08 14:20] VITALS: BP 135/76; PULSE 72; RESP 18; O2SAT 92; BMI 24.7
== END ==
PROVIDERS: PCP Family Medicine; Visit Provider Nurse Practitioner Family
DX: M51.16 Intervertebral disc disorders with radiculopathy, lumbar region (principal); M47.26 Other spondylosis with radiculopathy, lumbar region
CPT/HCPCS: 99212; G0463

== ENCOUNTER → 2023-09-10 15:42 | Outpatient (CLI) | payer MEDICARE, OTHER, SELFPAY ==
--- NOTE | 2023-09-10 15:47 | MM_ITS ---
PROCEDURE INFORMATION: Exam: MG Bilateral Screening 3D Mammography Exam date and time: 09/10/2023 3:40 PM Age: 73 years old Clinical indication: Screening examination TECHNIQUE: Imaging protocol: Bilateral Screening tomosynthesis and 2D mammography including computer-aided detection (CAD) when performed. COMPARISON: 1. MG MM DIG SCREENING MAMM BI W/CAD 02/27/2022 8:42 AM 2. MG MM DIG SCREENING MAMM BI W/CAD 09/03/2020 9:32 AM FINDINGS: MAMMOGRAPHY: Breast composition: There are scattered areas of fibroglandular density. Mass: None. Architectural distortion: None. Calcifications: No suspicious calcifications. Asymmetric density: None. Skin thickening: None. Axillary adenopathy: None. IMPRESSION: No mammographic evidence of malignancy. Annual screening is recommended unless otherwise clinically indicated. ASSESSMENT: BI-RADS Category 1: Negative
== END ==
PROVIDERS: PCP Family Medicine; Visit Provider Family Medicine
DX: Z12.31 Encounter for screening mammogram for malignant neoplasm of breast (principal)
CPT/HCPCS: 77063; 77067

== ENCOUNTER 2023-11-05 10:02 | Day surgery (SDC) | payer MEDICARE, OTHER, SELFPAY ==
[2023-11-05 10:09] VITALS: BP 119/56; PULSE 74; RESP 18; TEMP 36.5; O2SAT 92; BMI 24.7
[2023-11-05 10:16] VITALS: BP 137/49; PULSE 73; RESP 18; O2SAT 92
[2023-11-05] MEDS: BUPIVACAINE 0.25% 10ML INJ 25 MG IJ (10:16)
[2023-11-05] MEDS: LIDOCAINE 1% 5ML PF VIAL 5 ML (10:16)
[2023-11-05] MEDS: methylPREDNISolone ACETATE 80MG/ML VIAL 80 MG (10:16)
[2023-11-05 10:18] VITALS: BP 137/49; PULSE 69; RESP 18; O2SAT 96
--- NOTE | 2023-11-05 10:28 | P.PCN_ITS ---
Procedure Date: 11/05/23 Time: 10:20 Anesthesiologist:: Orion Huang CRNA Complications:: None Pre-procedure Diagnosis:: Degenerative disc lumbar spine multilevels. Lumbar radiculopathy. Lumbar spondylosis. Multilevel lumbar facet arthropathy. Lumbar postlaminectomy syndrome. Post-procedure Diagnosis:: Same Indications for Procedure:: Patient is a very pleasant 73-year-old female comes our clinic today for lumbar medial branch block/facet injection L4-5, L5-S1 bilaterally. Patient complains of low back pain that she describes as constant, dull, aching. Patient has difficulty with flexion, extension, left and right rotation. She rates her pain 7/10. Procedure Details:: Informed consent was obtained and the risk and benefits of the procedure was explained to the patient. Patient was taken to the procedure room where noninvas kar monitors were placed, including noninvasive blood pressure cuff as well as pulse oximeter. The area over the lumbar spine was cleansed using chlorhexidine as a cleansing solution. I anesthetized the skin and subcutaneous tissues with 1% Lidocaine. I placed 22-gauge spinal needles into the facet joint/ medial branches of L4-L5, and L5-S1] bilaterally. Needle placement was confirmed with fluoroscopy. After confirmation of needle placement, each site was injected with 1 mL of 1% lidocaine and 0.25 % Marcaine and 10 mg of Depo-Medrol. A total of 80 mg of depo medrol was used for bilateral medial branch blocks of L4-L5, and L5- S1] bilaterally. Patient tolerated the procedure without difficulty. There were no complications. Plan and Disposition:: Patient was discharged without incident.
[2023-11-05 10:30] VITALS: BP 149/60; PULSE 71; RESP 16; O2SAT 92
== END 2023-11-05 10:30 | disposition home or self-care (01) ==
PROVIDERS: PCP Family Medicine; Visit Provider Nurse Anesthetist, Certified Registered
DX: M47.816 Spondylosis without myelopathy or radiculopathy, lumbar region (principal); M51.16 Intervertebral disc disorders with radiculopathy, lumbar region; M96.1 Postlaminectomy syndrome, not elsewhere classified
CPT/HCPCS: 64493; 64494; J1040

== ENCOUNTER 2024-03-17 13:12 | Outpatient (CLI) | payer MEDICARE, OTHER, SELFPAY ==
--- NOTE | 2024-03-17 13:15 | CT_ITS ---
FINAL REPORT TECHNIQUE: Thin section axial images were obtained from the lung apices to the upper abdomen by computed tomography. Reformatted images were obtained and reviewed. This study was performed with techniques to keep radiation doses al low as reasonably achievable (ALARA). Individualized dose reduction techniques using automated exposure control or adjustment of mA and/or kV according to the patient's size were employed. CLINICAL HISTORY: H/O TOBACCO USE smoker 1/2 ppd for 50 years hx COPD COMPARISON: 02/28/2021 FINDINGS: CHEST CT LOW DOSE CTDI vol (mGy): 2.90 DLP (mGy-cm): 107.07 There is no axillary adenopathy. There is no mediastinal or hilar mass or adenopathy. The heart is normal in size. There is severe coronary artery calcifications. There is no pericardial or pleural effusion. There is mild emphysema and mild pulmonary scarring. Lung window images demonstrate a right lower lobe nodule measuring 5 mm best seen on image 58, stable. There is a 6 mm lateral left lower lobe nodule on image 63, stable with 2 smaller nodules anterior to this which are also stable. There is worsening atelectasis or scarring in the posterior right upper lobe and superior segment of the left lower lobe. Limited images of the upper abdomen are unremarkable. IMPRESSION: Lung-RADS category 1S. Recommend 12 month follow up low dose chest CT. Modifier S: Severe coronary artery calcifications. Reviewed, Interpreted and Dictated by Tucker Nichols III, MD Transcribed by Karon Talamantes Authenticated and [facility]
== END 2024-03-17 23:59 | disposition home or self-care (01) ==
LOC: RAD 13:13
PROVIDERS: PCP Family Medicine; Visit Provider Family Medicine
DX: Z87.891 Personal history of nicotine dependence (principal); Z12.2 Encounter for screening for malignant neoplasm of respiratory organs
CPT/HCPCS: 71271

== ENCOUNTER 2024-07-07 07:25 | Day surgery (SDC) | payer MEDICARE, OTHER, SELFPAY ==
[2024-07-05 15:53] VITALS: BMI 21.9
[2024-07-07 07:40] VITALS: BP 132/58; PULSE 68; RESP 18; TEMP 36.6; O2SAT 93
--- NOTE | 2024-07-07 08:20 | HMH.SCOPE ---
Procedure: Date: 07/07/24 Patient Date of :: 1950 Procedure Performed:: Colonoscopy with polypectomy using biopsy Indications:: Patient is a 73-year-old female from [place] with history of obstructive sleep apnea, hypertension, hyperlipidemia, peripheral artery disease , coronary artery disease, renal artery stenosis, tobacco abuse, on Plavix with history of polyps who presents for colonoscopy. I performed colonoscopy on 10/07/2010 at which time she had a transverse colon polyp and 5-year follow-up colonoscopy was recommended. She has had Cologuard testing a couple times subsequently and this has been negative. . Performing Provider:: Tucker Garibay MD Referring Provider:: Luis A Betancourt MD Sedation:: MAC sedation . Procedure:: Patient history was obtained and appropriate physical examination was performed. Patient's medications and allergies were reviewed. Informed consent was obtained after explaining the benefits, alternatives, and risks of the procedure including, but not limited to, bleeding, perforation, missed lesions, and adverse reaction to anesthesia medications. Patient was transported to endoscopy procedure room. Patient was connected to monitoring devices. Throughout the procedure the patient's blood pressure, pulse, and oxygen saturations were monitored continuously. Patient identification and planned procedure were verified by the staff. Patient was positioned in lateral decubitus position. Digital anorectal exam was performed. Variable stiffness Olympus colonoscope was inserted and advanced under direct visualization to the cecum. Adequacy of the colonic preparation was noted. The colonoscope was advanced a short distance into the terminal ileum. The colonoscope was then slowly withdrawn while carefully examining the color, texture, anatomy, and integrity of the mucosoa circumferentially. Within the rectum retroflexion was performed. Colonoscope was then withdrawn. Impression: Advancement of the colonoscope to the cecum was somewhat difficult due to some significant floppiness and atony of the sigmoid and transverse colon. This required abdominal pressure and transiently placing the patient in a supine position. Ultimately it was advanced to the cecum. There was a large amount of particulate stool within the colon. This required large high-volume trans colonoscopic irrigation and suctioning and this could be mostly cleared with some prolonged effort. Colonoscope was advanced a short distance into the terminal ileum. This is slowly withdrawn through the colon with careful surveillance with high-volume trans colonoscopic irrigation and suctioning. In the rectosigmoid region there were several scattered hyperplastic appearing polyps which were removed with biopsy forceps. . Findings:: Suboptimal preparation Hyperplastic appearing rectosigmoid polyps Recommendations:: Follow-up colonoscopy pending pathology Complications:: None immediately apparent Estimated blood obtained (mL): 1 Colonoscopy Component Colonoscopy Component Was a colonoscopy performed during today's procedure?: Yes Recommended follow up colonoscopy of at least 10 years?: No If no, follow up colonoscopy recommended in ___ years?: See above Reason for not recommending >/= 10 yr follow-up interval?: See above
--- NOTE | 2024-07-07 08:28 | EXP.ANES.CKL ---
[facility] Disclaimer: The information contained in this section may have been updated after the patient was seen, as this information can be updated by other users. Medical History Sleep apnea COPD (chronic obstructive pulmonary disease) Menopause Osteoporosis Osteoarthritis Carpal tunnel syndrome History of cataract Hyperlipidemia Hypertension Tobacco abuse Renal artery stenosis Edema of left lower extremity Pain in left lower leg Claudication Surgical History History of right hip replacement History of colonoscopy History of carpal tunnel release History of left hip replacement Family History Brother Family history of myocardial infarction Family history of diabetes mellitus type II Mother Family history of myocardial infarction Other Family history of stroke Social History (Updated 07/07/24 @ 07:40 by Karon Charles RN) Smoking Status: Current every day smoker tobacco type: cigarettes packs per day: 1 alcohol intake: current substance use type: denies use current occupational status: retired Travel in the last 8 weeks: None household members: spouse housing: house current occupational exposures/hazards: No caffeine: No [facility] Anesthesia Checklist Patient Identification Patient Identification: Arm Band Structural Data Admitted From: Home Planned Operative Procedure/s: Colonoscopy Consent for Planned Operative Procedure(s) Verified: Yes Verified Documents: Surgical Consent and History and Physical NPO Status Verified Time NPO: 00:00 Additional verifications Anesthesia Reactions: No Hx Blood Transfusions: No Blood Transfusion Reaction: No Airway Assessment Mallampati Score:: Class II C-Spine Mobility Assessed: Yes TMJ Mobility Assessed: Yes Dentition: Edentulous Neurological Assessment Level of Consciousness: Awake, Alert and Appropriate Anesthesia Plan Anesthesia Risk discussed: Yes Anesthesia Plan: Verified ASA Class: III Anesthesia Type: MAC
[2024-07-07 08:33] VITALS: O2SAT 99
[2024-07-07 09:47] VITALS: BP 118/70; PULSE 66; RESP 16; TEMP 36.7; O2SAT 99
[2024-07-07 09:57] VITALS: BP 126/67; PULSE 66; RESP 17; O2SAT 98
[2024-07-07 10:07] VITALS: BP 137/60; PULSE 64; RESP 18; O2SAT 97
[2024-07-07 10:17] VITALS: BP 152/67; PULSE 64; RESP 16; TEMP 36.6; O2SAT 98
== END 2024-07-07 10:17 | disposition home or self-care (01) ==
PROVIDERS: PCP Family Medicine; Visit Provider Surgery
PROC: 0DJD8ZZ Inspection of Lower Intestinal Tract, Via Natural or Artificial Opening Endoscopic (ICD-10-PCS; CPT 45380; principal; 2024-07-07 08:30)
DX: Z12.11 Encounter for screening for malignant neoplasm of colon (principal); Z09 Encounter for follow-up examination after completed treatment for conditions other than malignant neoplasm; Z86.010 Personal history of colon polyps; D12.7 Benign neoplasm of rectosigmoid junction; G47.33 Obstructive sleep apnea (adult) (pediatric); I10 Essential (primary) hypertension; E78.5 Hyperlipidemia, unspecified; I73.9 Peripheral vascular disease, unspecified; I25.10 Atherosclerotic heart disease of native coronary artery without angina pectoris; I70.1 Atherosclerosis of renal artery; F17.210 Nicotine dependence, cigarettes, uncomplicated; Z79.02 Long term (current) use of antithrombotics/antiplatelets
CPT/HCPCS: 45380; 88305; J2704; J7120

== ENCOUNTER 2024-07-18 14:00 | Outpatient (RCR) | payer MEDICARE, OTHER, SELFPAY ==
--- NOTE | 2024-06-22 16:58 | HMH.PTOPEV ---
PT Outpatient Evaluation Rehab PT Outpatient Evaluation Start: 06/22/24 15:45 Freq: Status: Active Protocol: Document 06/22/24 15:45 PDESEROUX (Rec: 06/22/24 16:57 [email or web address] Desktop) E-signed By Orion Mathis, PT Outpatient Therapy Subjective History Subjective History Pt. is a 73 year old female who presents to [facility] Outpatient Physical Therapy Services in [place] for the initial evaluation this date( 06/22/24) w/ c/o subacute and intermittent RLE hip post- surgical P!, weakness, and stiffness S/P RLE hip hemiarthroplasty on 05/02/24. Pt. reports having 5 weeks of Home Health Physical Therapy 2x/wk. that went very well. However, pt. continues to c/o increase in symptoms w/ prolonged closed kinetic chain activities like standing to fix supper or being able to walk through [employer] to go grocery shopping. Pt. reports having an 8/10 ache in the anterior thigh when she's on her feet for too long and has to sit down for symptom relief . Pt. reports reports her RLE feels weak when she has to do much on her feet. Pt. reports ambulating w/ FWW x4wks. post surgery, presents to [facility] Outpatient Physical Therapy Services in [place] w/ SPC during ambulation. Pt. RTMD in 5 weeks I think. Current medications include Benazepril , Furosemide, Amlodipine, Clopidogrel, Metoprolol, Duloxetine, Alendronate, Atorvastatin, Fluticasone, Baby Aspirin, Tylenol, and Vit . D. PMH includes S/P LLE DEANNA, S/P lumbar spine discectomy, and S/P RUE CTS. New diagnosis of cancer in past 12 No months? Chief Complaint Pain,Stiff,Gives out/Unstable, Weakness Symptom Type Ache,Sharp,Dull Symptoms Relieved By Rest/Positioning,Heat, Prescription Meds Symptoms Aggravated By Standing,Physical Activity, Walking,Lifting Prior Functional Limitations None Current Functional Limitations Lifting,Housework,Standing, Recreation Activity,Walking Symptom Description Activity Dependent Level of pain today (0-10) 0 Pain scale - at its best (0-10) 0 Pain scale - at its worst (0-10) 8 Hip/Knee Eval Gait Observation General Gait Pattern Observation Antalgic Gait,Decrease Weight Bear (R),Decrease Stride Lngth (L) Assistive Device Assistive Devices Straight Cane Palpation Tenderness right Knee Palpation Overall Comment grade 3 +TTP to quadriceps mm. Hip Palpation Findings Tenderness MMT Hip Flexion Strength Grade 4- Good- Hip Abduction Strength Grade 4 Good Hip Adduction Strength Grade 4 Good Hip Extension Strength Grade 4 Good Gluteus Richard Strength Grade 4 Good Hip External Rotation Strength Grade 4- Good- Hip Internal Rotation Strength Grade 4- Good- Knee Extension Strength Grade 4- Good- Knee Flexion Strength Grade 4- Good- Hip Extensors Muscle Tone Description Moderate Hypertonicity Hip Flexors Muscle Tone Description Moderate Hypertonicity ROM Hip Flexion w/Knee Flexed Active Range 90 of Motion (degrees) Hip Flexion w/Knee Flexed Passive Range 111 of Motion (degrees) Hip Flexion w/Knee Extended Active Range 51 of Motion (degrees) Hip Flexion w/Knee Extended Passive 59 Range of Motion (degrees) Hip Abduction Active Range of Motion ( 19 degrees) Hip Abduction Passive Range of Motion ( 23 degrees) Hip Extension Active Range of Motion ( 12 degrees) Hip Extension Passive Range of Motion ( 15 degrees) Hip External Rotation Active Range of 17 Motion (degrees) Hip External Rotation Passive Range of 23 Motion (degrees) Hip Internal Rotation Active Range of 11 Motion (degrees) Hip Internal Rotation Passive Range of 15 Motion (degrees) Hip ROM Limitations Soft Tissue Tightness,Pain, Tightness on Right,Pain on Right Sensation Comment light touch sensation symmetrical in BLEs grossly Outpatient Therapy Assessment Impairments Problems/Impairmments Palpation Tenderness,Impaired Range of Motion,Impaired Strength,Impaired Endurance, Impaired Gait Pattern,Impaired Walking,Impaired Standing, Impaired Lifting,Impaired Household Care,Impaired Work Activities,Subjective C/O Pain ,Impaired Self Care/Self Management Prognosis Rehab Potential Good Comment w/ HEP compliancy Clinical Impression Consistent with Diagnosis Yes Consistent with S/P RLE hip hemiarthroplasty Short Term Goals Number of Weeks 2 Decreased Palpation Tenderness Yes: grade 1-2 +TTP to TTP assessment above Decrease Subjective C/O Pain Yes: worse:03/17 Patient to be Ind w/ HEP Yes Non Destructive Evaluation Technician Goals Number of Weeks 4-6 Decreased Palpation Tenderness Yes: grade 1 +TTP to TTP assessment above Increase Range of Motion Yes: RLE hip A/PROM WFL grossly Increase Strength Yes: 4+ to 5/5 RLE hip and knee MMT scores grossly Improve Gait Pattern without Assistive Yes Device Increase Ability to Walk Yes: Pt. will be able to ambulate throughout [employer] w /o difficulty for grocery Increase Ability to Stand Yes: Pt. will be able to stand long enough to cook supper w/ o difficulty Improve Ability For Household Care Yes Improve LEFI Score Yes Decrease Subjective C/O Pain Yes: worse:-12/18 Patient to be Ind w/ Advanced HEP Yes Outpatient Therapy Plan of Care Treatment Plan May Include Therapeutic Exercise Including Home Yes Exercise Program Manual Therapy Techniques Yes Neuromuscular Re-education Yes Therapeutic Activities to Return to Yes Previous Functional/Work Level Gait Training Yes ADL/Self Care Education Yes Thermal Modalities Yes Electrical Stimulation Yes Ultrasound/Phonophoresis Yes Iontophoresis Yes Vasopneumatic Compression Pump Yes Massage Yes Eval/Re-Eval Yes Frequency Times per week 2 Duration Number of Weeks 4-6 Addendums This patient is a candidate for social No or vocational rehab? Patient/Guardian verbally acknowledges Yes understanding of treatment program and consents to further treatment? Patient/Guardian verbally acknowledges Yes understanding of diagnosis, prognosis and goals for treatment? Eval Complexity PT Charges 71464 - Low Complexity Shoulder/Elbow Eval Shoulder Objective Measurements Elbow Objective Measurements PHYSICIAN CERTIFICATION: I certify the specified therapy services for Antonia Pickens are required, authorized, and reviewed every 30 days.
== END 2024-07-26 12:57 | disposition home or self-care (01) ==
LOC: PT 14:00
PROVIDERS: Visit Provider Family Medicine
DX: M25.551 Pain in right hip (principal); Z96.641 Presence of right artificial hip joint
CPT/HCPCS: 97110; 97163; 97530

== ENCOUNTER 2024-09-13 15:02 | Outpatient (CLI) | payer MEDICARE, OTHER, SELFPAY ==
--- NOTE | 2024-09-13 15:05 | MM_ITS ---
PROCEDURE INFORMATION: Exam: MG Bilateral Screening 3D Mammography Exam date and time: 09/13/2024 2:52 PM Age: 74 years old Clinical indication: Screening examination TECHNIQUE: Imaging protocol: Bilateral Screening tomosynthesis and 2D mammography including computer-aided detection (CAD) when performed. COMPARISON: 1. MG MM DIG SCREENING MAMM BI W/CAD 09/10/2023 3:40 PM 2. MG MM DIG SCREENING MAMM BI W/CAD 02/27/2022 8:42 AM FINDINGS: MAMMOGRAPHY: Breast composition: There are scattered areas of fibroglandular density. Mass: None. Architectural distortion: None. Calcifications: No suspicious calcifications. Asymmetric density: None. Skin thickening: None. Axillary adenopathy: None. IMPRESSION: No mammographic evidence of malignancy. Annual screening is recommended unless otherwise clinically indicated. ASSESSMENT: BI-RADS Category 1: Negative.
--- NOTE | 2024-09-13 15:05 | XR_ITS ---
FINAL REPORT TECHNIQUE: Bone densitometry calculations of the lumbar spine and left hip were obtained. CLINICAL HISTORY: post menopausal Pt. has had bilateral hip replacements COMPARISON: 02/27/2022 FINDINGS: Using L1-4, the bone mineral density of the spine is 0.963 g/cm2, corresponding to T-score of -0.8. Using the left forearm, the bone mineral density of the 1/3 is 0.524 g/cm2, corresponding to a T-score of -2.8. Using the right forearm, the bone mineral density of the 1/3 is 0.536 g/cm?, corresponding to a T-score of -2.6. NOTE: T-score: Standard deviation compared with peak bone mass of young adult mean. *Following the recommendations of the International Society of Bone Densitometry, classification of hip BMD is based on the lower of two T-scores; total hip or femoral neck. IMPRESSION: Osteoporosis: Lowest T-score is at or below -2.5. This patient's T-score meets the World Health Organization criteria for osteoporosis. The T-score for the lumbar spine is within normal limits, however this likely is falsely elevated secondary to bony sclerosis. Reviewed, Interpreted and Dictated by Tucker Nichols III, MD Transcribed by Brenda Hsu Authenticated and [facility]
== END 2024-09-13 23:59 | disposition home or self-care (01) ==
LOC: RAD 15:02
PROVIDERS: PCP Family Medicine; Visit Provider Family Medicine
DX: M81.0 Age-related osteoporosis without current pathological fracture (principal); Z12.31 Encounter for screening mammogram for malignant neoplasm of breast
CPT/HCPCS: 77063; 77067; 77080

== ENCOUNTER 2024-10-02 10:29 | Outpatient (POV) | payer MEDICARE, OTHER, SELFPAY ==
[2024-10-02 10:56] VITALS: BP 168/64; PULSE 74; RESP 18; O2SAT 91; BMI 22.8
--- NOTE | 2024-10-02 11:38 | A.OFFVIS_ITS ---
[facility] Disclaimer: The information contained in this section may have been updated after the patient was seen, as this information can be updated by other users. Medical History (Updated 10/02/24 @ 11:40 by Daina Ricci APRN) Sleep apnea COPD (chronic obstructive pulmonary disease) Menopause Osteoporosis Osteoarthritis Carpal tunnel syndrome History of cataract Hyperlipidemia Hypertension Tobacco abuse Renal artery stenosis Edema of left lower extremity Pain in left lower leg Claudication Surgical History History of right hip replacement History of colonoscopy History of carpal tunnel release History of left hip replacement Family History Brother Family history of myocardial infarction Family history of diabetes mellitus type II Mother Family history of myocardial infarction Other Family history of stroke Social History (Updated 07/07/24 @ 07:40 by Karon Charles RN) Smoking Status: Current every day smoker tobacco type: cigarettes packs per day: 1 alcohol intake: current substance use type: denies use current occupational status: retired household members: spouse housing: house current occupational exposures/hazards: No caffeine: No PM Subjective & Objective Subjective Subjective:: Patient is a pleasant 74-year-old female who presents today for worsening pain. She rates her pain an 8 out of 10 and states it is all in her low back and denies any radiating symptoms into her lower extremities. Patient states that she has not had any falls or injuries however she did have a right hip replacement in April that did seem to aggravate her overall low back pain. Patient states that she did well with her replacement however the worsening low back pain that runs across to her back is making it difficult to even ambulate. Patient states it is constant and describes it as an aching, throbbing sensation. Patient did previously have her first lumbar medial branch block back in November 05, 2023 that did provide significant relief she states of more than 80% and lasted up until her surgery in April. Patient states that she would like to try additional injections as they have done really well for her in the past. Patient has tried and failed conservative therapy including oral medications, heat and ice, topicals, at home stretching exercise for longer than 12 weeks as well as recent physical therapy following her surgery. Her Davin has been reviewed and is appropriate. Review of Systems: General: No recent weight changes, no fever, no sleep disturbances Respiratory: No cough, no shortness of air, no recurring pulmonary infections Cardiovascular/peripheral vascular: No chest pain, no palpitations, no edema, no shortness of breath Gastrointestinal: No new onset incontinence, normal bowel movements reported Genitourinary: No new onset incontinence Musculoskeletal: Low back pain, hip pain Psychiatric: [Normal mood/affect] Neurological: [Denies weakness in extremities], [denies balance issues] Pain at rest (0-10 scale): 8 Objective Objective:: Physical Exam: General: Alert and oriented x3, no acute distress, pleasant and cooperative Lungs: Respirations even and unlabored, symmetrical chest expansion Eyes: PERRL Musculoskeletal: Flexion and extension of lumbar [spine] somewhat guarded secondary to pain, [antalgic gait noted] positive Kemps test Neurological: Speech clear, no gross sensory deficit Has patient had previous pain injection?: No Conservative treatment options previously tried: Home exercise plan Length of treatment: Longer than 12 weeks Meds Home Medications and Allergies Home Medications ?Medication ?Instructions ?Recorded ?Confirmed ?Type aspirin 81 mg tablet,delayed 81 mg PO DAILY heart health 03/20/21 07/07/24 History release (Adult Low Dose Aspirin) atorvastatin 10 mg tablet 40 mg PO HS Cholesterol 03/20/21 07/07/24 History calcium 600 mg (as 1 tab PO DAILY Supplement 03/20/21 07/07/24 History carbonate)-vitamin D3 5 mcg (200 unit) tablet (Calcium 600 + D(3)) cholecalciferol (vitamin D3) 25 25 mcg PO DAILY Supplement 03/20/21 07/07/24 History mcg (1,000 unit) capsule fluticasone propionate 50 2 spray intranasal DAILY allergies 03/20/21 07/07/24 History mcg/actuation nasal spray,suspension clopidogrel 75 mg tablet 75 mg PO DAILY Blood thinner 09/14/22 10/02/24 History alendronate 70 mg tablet 70 mg PO WEEKLY . 02/17/23 07/07/24 History metoprolol succinate 100 mg 100 mg PO DAILY BLOOD PRESSURE 03/17/23 07/07/24 History tablet,extended release 24 hr benazepril 20 mg tablet 40 mg PO DAILY Hypertension 03/09/24 07/07/24 History duloxetine 30 mg capsule,delayed 60 mg PO DAILY 03/09/24 10/02/24 History release albuterol sulfate 90 mcg/actuation 2 puff inhalation Q6H PRN 03/15/24 07/07/24 History aerosol inhaler Shortness Of Breath amlodipine 10 mg tablet 10 mg PO DAILY 03/15/24 07/07/24 History New Prescriptions to Start Prescriptions: Allergies Allergy/AdvReac Type Severity Reaction Status Date / Time cefdinir (From Omnicef) Allergy Intermediate disoriented Verified 07/07/24 07:39 ibandronate sodium (From Allergy Intermediate BP high & Verified 07/07/24 07:39 Boniva) low moxifloxacin (From Avelox) Allergy Unknown Verified 07/07/24 07:39 Assessment and Plan *Assessment and plan (1) Lumbar facet arthropathy: Status: Acute Category: Medical Code(s): M47.816 - Spondylosis without myelopathy or radiculopathy, lumbar region (2) Low back pain: Status: Acute Category: Medical Code(s): M54.50 - Low back pain, unspecified (3) Degenerative disc disease, lumbar: Status: Acute Category: Medical Code(s): M51.369 - Other intervertebral disc degeneration, lumbar region without mention of lumbar back pain or lower extremity pain Plan Patient is experiencing worsening pain throughout her low back with no radiating symptoms into her legs. Patient did have limited range of motion of her lumbar spine and a positive Kemps test. I did discuss with the patient that I do believe she would benefit from a second lumbar medial branch block. Risk and benefits were discussed with patient and she would like to proceed forward with this plan of care. Patient had her first diagnostic lumbar medial branch block in October 2023 that did provide more than 80% relief and lasted until April. Patient did have improved function and was able to move around easier with decreased pain. I did discuss with patient if she ends up getting significant relief with the second block that we will plan on proceeding forward with a lumbar RFA at a later date. Patient agrees with plan of care. Patient will be scheduled for a lumbar medial branch block bilaterally L4-L5 and L5-S1 under fluoroscopy. Patient has tried and failed conservative therapy including continued at home stretching exercise for longer than 12 weeks and physical therapy. Patient has been instructed to contact the clinic with any concerns before the next appointment. Dr. Varela has reviewed this note and agrees with this plan of care. This note was dictated using voice recognition software and make contain errors or omissions. All injections are used with Lidocaine or Bupivacaine and Depo Medrol.
== END 2024-10-02 23:59 | disposition home or self-care (01) ==
LOC: SC.PAIN 10:31
PROVIDERS: PCP Family Medicine; Visit Provider Nurse Practitioner Family
DX: M47.816 Spondylosis without myelopathy or radiculopathy, lumbar region (principal); M54.50 Low back pain, unspecified; M51.369 Other intervertebral disc degeneration, lumbar region without mention of lumbar back pain or lower extremity pain; F17.210 Nicotine dependence, cigarettes, uncomplicated; Z96.643 Presence of artificial hip joint, bilateral
CPT/HCPCS: 99212; G0463

== ENCOUNTER 2024-11-07 08:13 | Day surgery (SDC) | payer MEDICARE, OTHER, SELFPAY ==
[2024-11-07 08:15] VITALS: BP 153/60; PULSE 85; RESP 16; TEMP 36.3; O2SAT 86; BMI 22.8
[2024-11-07] MEDS: LIDOCAINE 1% 5ML PF VIAL 5 ML (08:40)
[2024-11-07] MEDS: BUPIVACAINE 0.25% 10ML INJ 25 MG IJ (08:40)
[2024-11-07] MEDS: methylPREDNISolone ACETATE 80MG/ML VIAL 80 MG (08:40)
[2024-11-07 08:41] VITALS: BP 139/76; PULSE 76; RESP 18; O2SAT 97
[2024-11-07 08:42] VITALS: BP 139/76; PULSE 76; RESP 18; O2SAT 97
--- NOTE | 2024-11-07 08:43 | P.PCN_ITS ---
Procedure Date: 11/07/24 Time: 08:35 Anesthesiologist:: Orion Huang CRNA Complications:: None Pre-procedure Diagnosis:: Degenerative disc lumbar spine multilevels. Lumbar radiculopathy. Lumbar spondylosis. Multilevel lumbar facet arthropathy. Post-procedure Diagnosis:: Same. Indications for Procedure:: Patient is a very pleasant 74-year-old female who comes our clinic today for ROUND TWO of lumbar medial branch block/facet injections bilateral L4-5, L5-S1. Patient describes low lumbar back pain is constant, dull, aching. Pain intensifies with sitting. Pain intensifies with standing. Patient reports having difficulty with lumbar flexion, extension, right and left rotation. She rates her pain 7/10. Procedure Details:: Informed consent was obtained and the risk and benefits of the procedure was explained to the patient. Patient was taken to the procedure room where noninvasive monitors were placed, including noninvasive blood pressure cuff as well as pulse oximeter. The area over the lumbar spine was cleansed using chlo rhexidine as a cleansing solution. I anesthetized the skin and subcutaneous tissues with 1% Lidocaine. I placed 22-gauge spinal needles into the facet joint/ medial branches of L4-L5, and L5-S1] bilaterally. Needle placement was confirmed with fluoroscopy. After confirmation of needle placement, each site was injected with 1 mL of 1% lidocaine and 0.25 % Marcaine and 10 mg of Depo- Medrol. A total of 80 mg of depo medrol was used for bilateral medial branch blocks of L4-L5, and L5-S1] bilaterally. Patient tolerated the procedure without difficulty. There were no complications. Plan and Disposition:: Patient was discharged without incident.
[2024-11-07 08:50] VITALS: BP 147/68; PULSE 78; RESP 16; O2SAT 92
== END 2024-11-07 08:50 | disposition home or self-care (01) ==
PROVIDERS: PCP Family Medicine; Visit Provider Nurse Anesthetist, Certified Registered
DX: M47.816 Spondylosis without myelopathy or radiculopathy, lumbar region (principal); M51.369 Other intervertebral disc degeneration, lumbar region without mention of lumbar back pain or lower extremity pain
CPT/HCPCS: 64493; 64494; J1010

== ENCOUNTER 2025-03-15 13:48 | Outpatient (CLI) | payer MEDICARE, OTHER, SELFPAY ==
--- NOTE | 2025-03-15 13:52 | XR_ITS ---
FINAL REPORT CLINICAL HISTORY: COPD pt states scheduled for heart cath tomorrow 03/16 FINDINGS: The heart size is normal. The mediastinum is normal. The lungs are hyperinflated consistent with emphysema. There are no pleural effusions. There is no pneumothorax. There is worsening left basilar opacity. Pneumonia is not excluded. IMPRESSION: Worsening left basilar opacity. Pneumonia is not excluded. Reviewed, Interpreted and Dictated by Uma Tobar MD Transcribed by BAYLEE Rincon Authenticated and [facility]
== END 2025-03-15 23:59 | disposition home or self-care (01) ==
LOC: RAD 13:50
PROVIDERS: PCP Family Medicine; Visit Provider Specialist
DX: R91.8 Other nonspecific abnormal finding of lung field (principal)
CPT/HCPCS: 71045

== ENCOUNTER 2025-05-04 15:16 | Outpatient (CLI) | payer MEDICARE, OTHER, SELFPAY ==
--- OUTSIDE RECORDS SUMMARY | 2024-10-03 09:30 | XMS_ITS ---
Author Organization [facility] Address [address] [facility] [address] [place] [phone] Care Team Providers Care Chemical Process Analyst Name Role Phone Keeley Betancourt Primary Care Provider [phone] Allergies Allergen (clinical drug ingredient) Drug/Non Drug [...] Status Risk Notes Problem Iron deficiency anemia (D50.9) Active confirmed Vital Signs Blood pressure systolic 120 mm Hg 10/03/20 24 Blood pressure diastolic 60 mm Hg 024 Heart Rate 75 /min 10/03/2024 Height 63.50 in 10/03/2024 Weight 120.6 lbs 10/03/2024 BMI 21.03 kg/m2 10/03/2024 Encounters Encounter Location Date Provider Diagnosis [facility] [address] [facility] [address], [place] [phone] 10/03/2024 R Luis A Betancourt Iron deficiency anem ia D50.9 Assessments Encounter Date Diagnosis (ICD Code) Assessment Notes Treatment Notes Treatment Clinical Notes Section Notes 10/03/2024 Iron deficiency anemia (ICD-10 - D50.9) Plan Of Treatment Medication Medication Name Sig Start Date Stop Date Notes Ferrous Sulfate 325 (65 Fe) MG 1 tablet Orally once daily 08/28/2024 Next Appt Details Follow Up: 6 Months, Reason: Provider Name:Keeley Giordano, 08/21/2025 09:00:00 AM, [address] [facility] [address], [place], [place], [phone], Progress Notes * NIHARIKA NARVAEZDOB:1950 (74 yo F)Acc No.[id number]:10/03/2024 Progress Notes Patient: NIHARIKA VILLARREAL Provider: Keeley Betancourt M.D. :1950 A ge:74 Y S ex:Female Date:10/03/2024 Address:[address] [place] [address], [facility] Subjective: * Chief Complaints: * 1 . [...] * Hospitalization/Major Diagno stic Procedure: Iveth carrion- [facility] in [place] 11/2014. * Family [...] PM > results reviewed w/ pt in aishaNoKeeley king 10/03/2024 2:54:41 PM > * Procedure Codes: G 2211 Complex e/[place], [address] CAPILLARY BLOOD DRAW, 05694 CBC WITH AUTO DIFF * Follow Up: 6 Months * Images: Billing Information: * Visit Code: 64499 Office Visit, Est Pt., Level 3. * Procedure Codes: G2211 Complex e/[place]. [address] CAPILLARY BLOOD DRAW. 29447 CBC WITH AUTO DIFF. * Electronic signature of Keeley Betancourt MD on 05/04/2025 at 03:20 PM EDT Sign off status: Pending * Provider: Keeley Betancourt M.D. Date: 12/03/2023 Generated for Nithya linaers/Lela/Aneesh on: 0 05/04/2025 03:20 PM EDT History and Physical Notes * HPI (History of Present Illness) Category Sub-Category Detail Notes Category Not es Hematology Anemia Pt presents toda y for a repeat CBC since starting iron supplement. She is toleratting the iron Examination Category Sub-Category Detail Notes Category Not es General Examination Heart: RSR Lungs: clear to auscultatio n General Appearance: NAD
--- OUTSIDE RECORDS SUMMARY | 2025-02-15 05:15 | XMS_ITS ---
Author Organization [facility] Address [address] [facility] [address] [place] [id number] Care Team Providers Care Logistics Research Engineer Name Role Phone Keeley Betancourt Primary Care [...] Interpretation: Performing Lab: Notes/Report: Test performed by [employer], [facility] [address] [place] [address] , [address], [place] [address] Gamal Haywood MD, Boat Crew Deck Hand CLIA: [id number] Vitamin B12 050 127-9913 pg/mL P-Comprehensive Metabolic Pa yoseph (CMP) Reviewed date:02/20/2025 09:44:27 PM Interpretation: Performing Lab: Notes/Report: Test performed by [employer] [address] [place] [address] , [address], [place] [address] Gamal Haywood MD, Boat Crew Deck Hand CLIA: [id number] Sodium 137 135-145 mmol/L Potassium 3.7 3.5-5.3 [...] Interpretation: Performing Lab: Notes/Report: Test performed by [employer] [address] [place] [address] , [address] [id number] Gamal Haywood MD, Boat Crew Deck Hand CLIA: [id number] Iron 140 37-145 ug/dL P-Lipid Panel Reviewed date:02/20/2025 09:44:27 PM Interpretation: Performing Lab: Notes/Report: Test performed by [employer] [address] [place] [address] , [address], [place] [address] Gamal Haywood MD, Boat Crew Deck Hand CLIA: [id number] Cholesterol 163 <200 mg/dL Triglycerides 106 <150 [...] Interpretation: Performing Lab: Notes/Report: Test performed by [employer] [address] [facility] [address], [place] [address] Gamal Haywood MD, Boat Crew Deck Hand CLIA: [id number] TSH 2.17 0.43-5.25 mU/L P-Microalbumin/Creatinine, R andom Urine Sample Reviewed date:02/20/2025 09:44:27 PM Interpretation: Performing Lab: Notes/Report: Test performed by [employer] [address] [facility] , [address], [place] [address] Gamal Haywood MD, Boat Crew Deck Hand CLIA: [id number] Albumin/Creatinine Ratio, Urine 18 0-30 ug/m g Microalbumin, Urine, Random 1.4 Creatinine, Urine 77.8 Reason For Referral Reason Dr. José Miguel [place] for PAD, carotid disease; dilated left atrium Diagnosis 1 PAD (peripheral beryl ry disease) (I73.9) [facility] Referring Provider First Name Keeley Gunn Referring Provider Last Name Serafin Referring Provider [facility] Referred Provider Cardiology, . Referred Provider Specialty Cardiovascul ar Disease General Notes Nanci James 2024 10:46:57 AM > faxed to [place] office as he does not have a [place] number Referral Priority Routine REASON FOR VISIT [...] Status Risk Notes Problem Vitamin B12 deficiency (120275213) Vitamin B12 deficiency (E53.8) Active confirmed Problem Osteoporosis, unspecified (M81.0) Active confirmed Vital Signs Blood pressure systolic 120 mm Hg 02/16/20 25 Blood pressure diastolic 60 mm Hg 025 Height 63.50 in 02/15/2025 Weight 110.4 lbs 02/15/2025 BMI 19.25 kg/m2 02/15/2025 Encounters Encounter Location Date Provider Diagnosis [facility] [address] [facility] [address] [place], [place] [phone] 02/15/2025 R Luis A Betancourt Adult general medica l examination Z00.00 [...] Details 02/16/2025 02/16/2025, Dr. Guera Abdi in [place] for PAD, carotid disease; dilated left atrium , . Cardiology Next Appt Details Follow Up: 6 Months, Reason: Provider Name:Keeley Giordano, 08/21/2025 09:00:00 AM, [address] [facility], [address] , [place], [place], [id number], Progress Notes * NIHARIKA NARVAEZDOB:1950 (74 yo F)Acc No.[id number]:02/15/2025 Annual Wellness Visit Patient: hCery VELANDREW REBOLLEDOET Provider: Keeley Betancourt M.D. :1950 A ge:74 Y S ex:Female Date:02/15/2025 Address:[address] [place] [address], [place] [id number] Subjective: * Chief Complaints: * 1 . 6 months and AWV. * HPI: H PI: Patient is here today for a scheduled 6 month c heck up and a Medicare Annual Wellness Visit. Pt is fasting. C ardiology: She is just returned from wintering in [place]. She reports having some intermittent swelling in her feet and ankles while in [place]. She also complains of some exertional dyspnea. [...] Diagno stic Procedure: Iveth carrion- [facility] in [place] 11/2014. * Family History: F ather: , [...] the past 12 months. D epression Screening: D toshia depressed mood or anxiety. Describes emotional health [...] p latlet 264 100 - 400 * Jaked[employer]Qi 02/15/2025 11:2 8:31 AM > Keeley Betancourt [...] Cardiology??Cardiovascular Disease ?Reason:Dr. José Miguel Abdi in [place] for PAD, carotid disease; dilated left atrium [...] AM)* Value Reference Range V itamin B12 002 338-8393 - pg/mL * Keeley Betancourt 02/20/2025 09:44:09 [...] OF ACTIVITY ASSESS, 4040F PNEUMOC IMM ORDER/ADMIN, 92467 CBC WITH AUTO DIFF, 1125F AMNT PAIN [...] * Images: Billing Information: * Visit Code: 94839 Office Visit, Est Pt., Level 3. Modifiers: 25 * Procedure Codes: G0439 ANNUAL WELLNESS VST; PPS SUBSQT VST. G2211 Complex e/m visit add on. G0444 ANNUAL DEPRESSION SCREENING 15 MIN. 1090F PRES/ABSN URINE INCON ASSESS. 3288F FALL RISK ASSESSMENT DOCD. 1170F FXNL STATUS ASSESSED. 1159F MED LIST DOCD IN RCRD. 1003F LEVEL OF ACTIVITY ASSESS. 4040F PNEUMOC IMM ORDER/ADMIN. 98404 CBC WITH AUTO DIFF. 1125F AMNT PAIN NOTED PAIN PRSNT. G8510 NEG SCR Depression PT NOT ELIG F/U/PLN DOC. 3074F SYST BP LT 130 MM HG. 3078F DIAST BP < 80 MM HG. * Electronic signature of Keeley Betancourt MD on 05/04/2025 at 03:19 PM EDT Sign off status: Pending * Provider: Keeley Betancourt M.D. Date: 0 02/15/2025 Generated for Printmih[employer] linares/Fabud/eTransmitting on: 0 05/04/2025 03:19 PM EDT History and Physical Notes * [...] Betancourt Cardiology, . Dr. Mik Abdi in [place] for PAD, carotid disease; dilated left atrium
--- OUTSIDE RECORDS SUMMARY | 2025-04-12 10:15 | XMS_ITS ---
Author Organization [facility] Address [address] [facility] [address] [place] [phone] Care Team Providers Care Police Liaison Name Role Phone Keeley Betancourt Primary Care Provider Allergies Allergen (clinical drug ingredient) Drug/Non Drug Allergy documented on EMR Reaction Allergy Type Onset Date Status cefdinir Cefdinir disoriented Drug Allergy Activ e ibandronic acid Ibandronic Acid BP high and low Drug Allergy Active moxifloxacin Moxifloxacin GI Drug Allergy A ctive REASON FOR VISIT F/U DR Coronado Medications [...] 04/12/2025 Encounters Encounter Location Date Provider Diagnosis [facility] [address], [place] [phone] 04/12/2025 Keeley Betancourt Tobacco use disorder F17.200 [...] apnea) (ICD-10 - G47.33) Plan Of Treatment Pending Test Test Name Order Date CT Scan : Chest, low dose 04/12/2025 Next Appt Details Follow Up: via phone to repo rt test results, Reason: Provider Name:Keeley Gomezcharles su, 08/21/2025 09:00:00 AM, [address], [address], [place], [place], [phone], Progress Notes * ANTONIA NARVAEZDOB:1950 (74 yo F)Acc No.[id number]:04/12/2025 Progress Notes Patient: ANTONIA VILLARREAL Provider: Keeley Betancourt M.D. :1950 A ge:74 Y S ex:Female Date:04/12/2025 Address:[address] [place], [place] [phone] Subjective: * Chief Complaints: * 1 . [...] * Hospitalization/Major Diagno stic Procedure: Iveth carrion- [facility] in [place] 11/2014. * Family History: F ather: , [...] * Images: Billing Information: * Visit Code: 66423 Office Visit, Est Pt., Level 3. * [...] Date: 04/12/2025 Generated for Nithya linares/Lela/Aneesh on: 05/04/2025 03:19 PM EDT History and Physical Notes * Examination Category Sub-Category Detail Notes Category Not es General Examination Heart: RSR Lungs: Breath sounds are ge nerally diminished but otherwise clear. General Appearance: NAD
--- NOTE | 2025-05-04 15:18 | CT_ITS ---
FINAL REPORT CLINICAL HISTORY: SCREENING, CURRENT SMOKER 1PPD FOR 30 YEARS FINDINGS: CT CHEST LOW DOSE SCREENING HISTORY: Screening exam for lung cancer. Current smoker, 30 pack year smoking history DOSE: CTDIvol: 2.90 mGy, DLP: 106.29 mGy*cm COMPARISON: 03/17/2024. TECHNIQUE: Axial CT without IV contrast administration using low dose protocol. This study was performed with techniques to keep radiation doses as low as reasonably achievable, (ALARA). Individualized dose reduction techniques using automated exposure control or adjustment of mA and/or kV according to the patient''s size were employed. FINDINGS: No acute lung disease is present . Interval development of a lobulated masslike density is seen in the anterior left upper lobe with surrounding micro-nodularity. Largest component measures 23 x 29 mm. A few other peripheral nodules are noted in both lungs which are stable from prior exam. There is moderate underlying emphysema. No pleural or pericardial effusion is seen . No enlarged lymph nodes are present.. IMPRESSION: 1. interval development of lobulated masslike density left upper lobe LUNG RADS CATEGORY 4B RECOMMENDATION: PET CT follow-up Authenticated and ERN
--- OUTSIDE RECORDS SUMMARY | 2025-05-04 15:19 | XMS_ITS | Clinical Summary ---
Author Organization [facility] Address [address] [place] [address] Care Team Providers Care City Marshal Name Role Phone Tariq Betancourt MD Primary Care Provider [phone] Stan Leroy MD Unavailable [phone] Allergies No known active allergies Medications benazepril (Lotensin) 40 MG tablet Take 1 tablet (40 mg) by mouth 1 (one) time each day. 4 Active furosemide (Lasix) 40 MG tablet Take 0.5 tablets (20 mg) by mouth. 4 Active amLODIPine (Norvasc) 10 MG tablet Take 1 tablet (10 mg) by mouth 1 (one) time each day. 4 Active clopidogrel (Plavix) 75 MG tablet Take 1 tablet (75 mg) by mouth 1 (one) time each day. 4 Active metoprolol succinate XL (Toprol-XL) 100 MG 24 hr tablet Take 1 tablet (100 mg) by mouth 1 (one) time each day. 4 Active DULoxetine (Cymbalta) [address] capsule 1 capsule (60 mg). 3 Active alendronate (Fosamax) 70 MG tablet Take 1 tablet (70 mg) by mouth 1 (one) time per week. 4 Active atorvastatin (Lipitor) 40 MG tablet Take 1 tablet (40 mg) by mouth every night. Active fluticasone (Flonase) 50 MCG/ACT nasal spray Administer 2 sprays into each nostril. 4 Active albuterol 108 (90 Base) MCG/ACT inhaler Inhale 2 puffs every 6 (six) hours if needed. Active aspirin 81 MG EC tablet Take 1 tablet (81 mg) by mouth 1 (one) time each day. Active Active Problems Problem Noted Date Diagnosed Date Anemia, unspecified 04/13/2024 Family History Medical History Relation Name Comments Heart disease Brother Heart disease Father Heart disease Mother Conversions - Other Other Back pro blem Relation Name Status Comments Brother Father Mother Other Social History Tobacco Use Types Packs/Day Years Used Date Smoking Tobacco: Every Day Cigarettes Passive Smoke Exposure: Current Smokeless Tobacco: Never Tobacco Cessation:Ready to Q uit: Not Asked; Counseling Given: Not Answered Comments:15 cigarettes a day. Alcohol Use Standard Drinks/Week Comments Yes 0 (1 standard drink = 0.6 oz pur e alcohol) Wine every once in awhile. Comments Unknown Sex and Gender Information Value Date Recorded Sex Assigned at Not on file Legal Sex Female 6:07 PM EDT Gender Identity Not on file Sexual Orientation Not on file Last Filed Vital Signs Vital Sign Reading Time Taken Comments Blood Pressure 144/71 04/13/2024 12:52 PM EDT Pulse 69 04/13/2024 12:52 PM EDT Temperature 36 C (96.8 F) 04/13/2024 12:52 PM EDT Respiratory Rate - - Oxygen Saturation 90% 04/13/2024 12:52 PM EDT Inhaled Oxygen Concentration - - Weight 56.5 kg (124 lb 9 oz) 04/13/2024 12:52 PM EDT Height 157.5 cm (5' 2 ) 04/13/2024 12:52 PM EDT Body Mass Index 22.78 04/13/2024 12:52 PM EDT Plan of Treatment Health Maintenance Due Date Last Done Comments [facility]-Bone Density Scan 1948 [facility]-Depression Screening 1948 [facility]-Hepatitis C Screening 1950 [facility]-Medicare Annual Wellness (AWV) 1948 [facility]-Infant/Child/Adol SDOH Screenings 1948 [facility]- SDOH Screenings 1966 [facility]-Adult SDOH Screenings 1966 [facility]-DTaP,Tdap,and Td Vaccines (1 - Tdap) 1967 [facility]Y-Zoster Vaccines (1 of 2) 1998 [facility]Y-RSV Vaccine: 60+ Years or (1 - 1-dose 75+ series) 2023 [id number] Vaccine ( season) 2024 08/25/2022, 06/18/2022, 09/11/2021, Additional history exists [facility]Y-Influenza Vaccine (Season Ended) 2025 08/14/2022, 08/15/2021, 08/23/2020, Additional history exists [facility]-Pneumococcal Vaccine: 50+ Years Completed 08/26/2023, 03/09/2017 HPV Vaccines Aged Out No longer eligi ble based on patient's age to complete this topic [facility]-HIB Vaccines Aged Out No longer e ligible based on patient's age to complete this topic [facility]-Hepatitis A Vaccines Aged Out No longer eligible based on patient's age to complete this topic UKY-IPV Vaccines Aged Out No longer e ligible based on patient's age to complete this topic UKY-Rotavirus Vaccines Aged Out No lo nger eligible based on patient's age to complete this topic Insurance MEDICARE [facility] [place] [employer] [id number] Care Teams City Marshal Relationship Specialty Start Date End Date Tariq Betancourt MD [address] [place] [address] PCP - General 03/21/21 Stan Leroy MD [address] [place] [address] Medical Oncologist Hematology and Oncology 04/10/24 BAYLEE Henao [facility] [place] [address] Referring Physician Orthopaedic Surgery 04/07/24
--- OUTSIDE RECORDS SUMMARY | 2025-05-04 15:19 | XMS_ITS | Continuity of Care Document ---
Author Organization [facility] VÍCTOR Keene [facility]ON[facility] Address [address] [place] [address] Care Team Providers Care Perianesthesia Manager Name Role Phone MAXIMILIANO CORCORAN Primary Care Provider Assessment No assessment recorded. Plan of Treatment Reminders Order Date Submit Date Provider Last Modified By Organization Details Last Modified Time Details Appointments DERM ESTABL ISHED 2024 01:20P M OCTAVIO MAY MENSWEAR SALESPERSON Not available Not available Not available Lab None record ed. Referral None record ed. Procedures None record ed. Surgeries None record ed. Imaging None record ed. Medication Orders None record ed. Patient TargetsNo targets recorded. Patient InstructionsNo instructions recorded. Reason for Referral None Reported. Procedures Surgical History Date Name Laterality Status Provider Name and Address Organization Details Recorded Time 08/25/20 24 Destruction Premalignant Lesion(s) completed [facility] 08/25/2024 10:19:57 08/25/20 Destruction BN Lesions completed [facility] 08/25/2024 10:20:02 [facility] 15:02:04 Imaging Results None recorded. Procedure Notes None recorded. Medical Equipment None Reported. Allergies No known drug allergies Medications Name Sig Start Date Stop Date Status Note LastModified by Organization Details LastModified Time atorvastatin active Not Available Not Available Not Available aspirin active Not Available Not Avail able Not Available alendronate active Not Available Not A vailable Not Available benazepril active Not Available Not Av ailable Not Available albuterol sulfate active Not Available Not Available Not Available clopidogrel active Not Available Not A vailable Not Available furosemide active Not Available Not Av ailable Not Available amlodipine active Not Available Not Av ailable Not Available Tylenol active Not Available Not Avail able Not Available metoprolol succinate active Not Available Not Available No t Available duloxetine active Not Available Not Av ailable Not Available July Allergy active Not Available Not Available Not Available Vitals None Recorded Social History Question Answer Notes LastModified by Organizat ion Details LastModified Time What Was The Date Of Your Most Recent Tobacco Screening? 05/01/2025 [email or web address] Information not available 05/01/2025 Sex: Unknown Functional Status None recorded. Mental Status None recorded. Family History Nothing Reported. Medical History No medical history recorded. Gynecological HistoryNo gynecological history recorded. Obstetrics History GPAL:G 0 P 0 0 0 0 Past Encounters Encounter ID Performer Location Encounter Start Date Encounter Closed Date Diagnosis/Indication Diagnosis SNOMED-CT Code Diagnosis ICD10 Code Diagnosis Note [id number] LISSETT Mina, [facility] [address] [place] [address] 05/01/2025 13:58:03 05/01/2025 15:27:10 Multiple benign melanocytic nevi 731363540 D22.5 - Benign moles seen on exam today - SPF 30 or higher broad-spec trum sunscreen recommende d with re-applica tion every 2 hours - Discussed sun protection measures, including wide-brimm ed hat, sun-protec tive clothing, and avoidance of sun during peak hours of 10am-4pm - Avoid tanning beds as these can increase the chances of all 3 types of skin cancer - Instructed to monitor for changes and to call us for appointmen t with any changing or worrisome lesions Seborrheic keratosis 394 [id number] L82.1 - Benign overgrowth s of skin- Hereditary No signs of malignancy or precancero us change today- Rec no treatment if not bothersome Solar lentigo [id number] L 81.4 - Benign brown spots - Sun-induce d Health Concerns Section Related Observation LastModified by Organization Detai ls LastModified Time None Recorded Concern Status LastModified by Organization Details LastModified Time None Recorded Payers Encounter Date Sequence Insurance Name Policy Number Policy Baxter Covered Member ID Baxter Member ID Guarantor Name 05/01/2025 1 [place] Antonia Dinora Celio [id number] Antonia Pickens 05/01/2025 2 [employer] [place] (MEDICARE SUPPLEMENT) Antonia Pickens [id number] Antonia Pickens Notes Date Note Type Note Provider Name and Address Organization Details Recorded Time 05/01/2025 text/html I am here for a f/u on AK'sLocation: [facility].Reports: Pt reports her PCP recommended to come back to check AK's.LV: 08/31Pt is accompanied by partner. LISSETT MAY, [facility] [address] [address] [place], [address], [facility] 05/02/2025 08:07:12 OBGyn Episode No OBEpisode recorded.
--- OUTSIDE RECORDS SUMMARY | 2025-05-04 15:19 | XMS_ITS | Clinical Summary ---
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 03/03/2024 Active furosemide (LASIX) 40 MG tablet Take 0.5 tablets (20 mg total) by mouth daily. 03/02/2024 Active amLODIPine (NORVASC) 10 MG tablet Take 1 tablet (10 mg total) by mouth daily. 03/02/2024 Active clopidogreL (PLAVIX) 75 mg tablet Take 1 tablet (75 mg total) by mouth daily. 03/02/2024 Active metoprolol succinate (TOPROL-XL) 100 MG 24 hr tablet Take 1 tablet (100 mg total) by mouth daily. 03/02/2024 Active DULoxetine (CYMBALTA) 60 MG capsule Take 1 capsule (60 mg total) by mouth daily. 03/17/2024 Active alendronate (FOSAMAX) 70 MG tablet Take 1 tablet (70 mg total) by mouth once a week. 03/02/2024 Active atorvastatin (LIPITOR) 40 MG tablet Take 1 tablet (40 mg total) by mouth nightly. 03/02/2024 Active fluticasone propionate (FLONASE) 50 mcg/actuation nasal spray 2 sprays daily. 03/02/2024 Active aspirin 81 MG EC tablet Take 1 tablet (81 mg total) by mouth. Active albuterol HFA (VENTOLIN HFA) 90 mcg/actuation inhaler 2 puffs every 6 (six) hours as needed. 03/09/2024 Active vitamin D3-vit K1-vit MK4-MK7 50-500-1,500 mcg Cap Take 50 mg by mouth daily. Active acetaminophen (TYLENOL) 500 MG tablet Take 1 tablet (500 mg total) by mouth every 6 (six) hours as needed for pain. Active loratadine (CLARITIN) 10 mg tablet Take 1 tablet (10 mg total) by mouth as needed for allergies. Active Active Problems Problem Noted Date Diagnosed Date Acute hypoxic respiratory failure 05/02/2024 Social History Tobacco Use Types Packs/Day Years Used Date Smoking Tobacco: Every Day Cigarettes 0.5 55 Smokeless Tobacco: Never Tobacco Cessation:Ready to Q uit: No; Counseling Given: Not Answered Alcohol Use Standard Drinks/Week Comments Never 0 (1 standard drink = 0.6 oz pur e alcohol) Utilities Answer Date Recorded In the past 12 months, has t he electric, gas, oil, or water company threatened to shut off services in your home? No 05/02/2024 Interpersonal Safety Answer Date Record ed How often does anyone, grace cardona family and friends, physically hurt you? Never 05/02/2024 How often does anyone, grace cardona family and friends, insult or talk down to you? Never 05/02/2024 How often does anyone, grace cardona family and friends, threaten you with harm? Never 05/02/2024 How often does anyone, grace cardona family and friends, scream or curse at you? Never 05/02/2024 Housing Stability Answer Date Recorded What is your living situation today? I have a [facility] place to live 05/02/[address] you li ve. Do you have problems with any of the following? None of the above 05/02/2024 Food Insecurity Answer Date Recorded Within the past 12 months, y ou worried that your food would run out before you got money to buy more. Never true 05/02/2024 Within the past 12 months, t he food you bought just didn't last and you didn't have money to get more. Never true 05/02/2024 Transportation Needs Answer Date Record ed In the past 12 months, has l ack of reliable transportation kept you from medical appointments, meetings, work or from getting things needed for daily living? No 05/02/2024 Financial Resource Strain Answer Date R ecorded How hard is it for you to pa y for the very basics like food, housing, medical care, and heating? Would you say it is: Not hard at all 05/02/2024 Employment Answer Date Recorded Do you want help finding or keeping work or a job? I do not need or want help 05/02/2024 Family and Community Support Answer Jacob e Recorded If for any reason you need h elp with day-to-day activities such as bathing, preparing meals, shopping, managing finances, etc., do you get the help you need? I don't need any help 05/02/2024 Feeling Lonely or Isolated 0 05/02 Educational Attainment Answer Date Sreekanth rded Do you speak a language other than Colombian at [facility]? No 05/02/2024 Do you want help with school or training? For example, starting or completing job training or getting a high school diploma, GED or equivalent. No 05/02/2024 Physical Activity Answer Date Recorded Number of minutes of exercise per week 60 05/02/2024 Alcohol Use Answer Date Recorded 5 or More Drinks Per Day Past 12 Months 0 09/23/2024 Depression Answer Date Recorded Calculation of above two rows 1 Stress Answer Date Recorded Stress means a situation in which a person feels tense, restless, nervous, or anxious, or is unable to sleep at night because his or her mind is troubled all the time. Do you feel this kind of stress these days? A little bit 05/02/2024 Disabilities Answer Date Recorded Because of a physical, menta l, or emotional condition, do you have serious difficulty concentrating, remembering, or making decisions? (5 years or older) No 05/02/2024 Because of a physical, menta l, or emotional condition, do you have difficulty doing errands alone such as visiting a doctor's office or shopping? (15 years or older) Yes 05/02/2024 Substance Use Answer Date Recorded How many times in the past y ear have you used prescription drugs for non-medical reasons? Never 05/02/2024 How many times in the past year have you used [place] legal drugs? Never 05/02/2024 Comments Unknown Sex and Gender Information Value Date Recorded Sex Assigned at Not on file Legal Sex Female 3:17 PM CDT Gender Identity Not on file Sexual Orientation Not on file Last Filed Vital Signs Vital Sign Reading Time Taken Comments Blood Pressure 116/47 05/03/2024 5:20 PM EDT Pulse 76 05/03/2024 5:20 PM EDT Temperature 36.5 C (97.7 F) 05/03/2024 2:00 PM EDT Respiratory Rate 18 05/03/2024 2:00 PM EDT Oxygen Saturation 96% 05/03/2024 2:00 PM EDT Inhaled Oxygen Concentration - - Weight 55.4 kg (122 lb 3.2 oz) 05/02/2024 9:38 P M EDT Height 157.5 cm (5' 2 ) 05/02/2024 9:38 PM EDT Body Mass Index 22.35 05/02/2024 9:38 PM EDT Plan of Treatment Health Maintenance Due Date Last Done Comments DXA SCAN 1948 Depression Screening (12+) 1960 Tobacco Cessation Counseling and Screening (12+) 1960 Hepatitis C Screening 1966 DTAP/TDAP/TD VACCINES (1 - Tdap) 1967 Lung cancer screening 1998 Shingles Vaccine (Zoster) (1 of 2) 1998 Medicare Initial AWV [id number] 07/10/2014 Respiratory Syncytial Virus (RSV) Adult or (1 - 1-dose 75+ series) 2023 COVID-19 VACCINE (6 2023-2 5 season) 2024 08/25/2022, 06/18/2022, 09/11/2021, Additional history exists Falls Risk Screening 11/08/2024 Influenza Vaccine (Season Ended) 2025 08/14/2022, 08/15/2021, 08/23/2020, Additional history exists Pneumococcal 50+ years Completed 08/26/2023, 2016 Insurance [employer] [id number] MEDICARE PART A B Advance Directives For more information, please contact: [phone] * Full Code (Latest Code Status on File) Date Activated Date Inactivated Comments 05/02/2024 8:35 PM 05/03/2024 7:01 PM -Attempt Res uscitation if person has no pulse and is not breathing. -If no pulse or not breathing attempt CPR/CODE. -Call Rapid Response if patient is in distress. Care Teams Aviation Mechanic Relationship Specialty Start Date End Date Ezequiel Houston MD [address] [place] [address] PCP - General Orthopedic Surgery 05/02/24
--- OUTSIDE RECORDS SUMMARY | 2025-05-04 15:20 | XMS_ITS | Patient Health Record ---
Author Organization [facility] Address [address] [facility] [address] [place] [id number] Care Team Providers Care Surveillance Specialist Name Role Phone Keeley Betancourt Primary [...] Interpretation: Performing Lab: Notes/Report: Test performed by [facility] , [address], [place] [address] Gamal Haywood MD, Stitch Bonding Machine Drawer In CLIA: [id number] Vitamin B12 132 504-6592 pg/mL P-Comprehensive Metabolic Pa yoseph (CMP) Reviewed date:02/20/2025 09:44:27 PM Interpretation: Performing Lab: Notes/Report: Test performed by [facility] [address] [place] [address] , [place] [address] Gamal Haywood MD, Stitch Bonding Machine Drawer In CLIA: [id number] Sodium 137 135-145 mmol/L Potassium 3.7 3.5-5.3 [...] Interpretation: Performing Lab: Notes/Report: Test performed by [facility] [address] [place] [address] , [place] [address] Gamal Haywood MD, Stitch Bonding Machine Drawer In CLIA: [id number] Iron 140 37-145 ug/dL P-Lipid Panel Reviewed date:02/20/2025 09:44:27 PM Interpretation: Performing Lab: Notes/Report: Test performed by [facility] [address] [place] [address] , [place] [address] Gamal Haywood MD, Stitch Bonding Machine Drawer In CLIA: [id number] Cholesterol 163 <200 mg/dL Triglycerides 106 <150 [...] Results: 90 Units: mg/dL % Change: -15% ------- Test Date: 02/15/2025 LDL Results: 88 Units: mg/dL % Change: -2% P-TSH Reviewed date:02/20/2025 09:44:27 PM Interpretation: Performing Lab: Notes/Report: Test performed by [employer] (Inspect Manager), [facility] [address] [place] [address] Jose Juan Cartagena, [place] [address] Gamal Haywood MD, Stitch Bonding Machine Drawer In CLIA: [id number] TSH 2.17 0.43-5.25 mU/L P-Microalbumin/Creatinine, R andom Urine Sample Reviewed date:02/20/2025 09:44:27 PM Interpretation: Performing Lab: Notes/Report: Test performed by [facility] [address] [place] [address] , [address], [place] [address] Gamal Haywood MD, Stitch Bonding Machine Drawer In CLIA: [id number] Albumin/Creatinine Ratio, Urine 18 0-30 ug/mg Microalbumin, Urine, Random 1.4 Creatinine, Urine 77.8 Hemoccult- IFOBT (in house) Reviewed date:10/03/2024 02:55:40 PM Interpretation:Negative Performing Lab: Notes/Report: Negative results Neg CBC Fingerstick (in house) Reviewed date:10/03/2024 02:54:43 [...] - 38 plat 318 100 - 400 CBC Venipuncture (in house) Reviewed date:08/28/2024 09:43:33 [...] Interpretation:304 Performing Lab: Notes/Report: Test performed by [facility], [address] , [address], [place] [address] Gamal Haywood MD, Stitch Bonding Machine Drawer In CLIA: [id number] Vitamin B12 612 258-3303 pg/mL P-Comprehensive Metabolic Pa yoseph (CMP) Reviewed date:08/28/2024 09:43:33 PM Interpretation:Na 131, cl 92, gluc 100 Performing Lab: Notes/Report: Test performed by [facility] [employer] [address] , [address], [place] [address] Gamal Haywood MD, Stitch Bonding Machine Drawer In CLIA: [id number] Sodium 131 135-145 mmol/L Potassium 4.0 3.5-5.3 [...] Interpretation:17 Performing Lab: Notes/Report: Test performed by [facility] [address] , [address], [place] [id number] Gamal Haywood MD, Stitch Bonding Machine Drawer In CLIA: [id number] Iron 17 37-145 ug/dL P-Lipid Panel Reviewed date:08/28/2024 09:43:33 PM Interpretation:Normal Performing Lab: Notes/Report: Test performed by [employer] [address] , [address], [place] [address] Gamal Haywood MD, Stitch Bonding Machine Drawer In CLIA: [id number] Cholesterol 162 <200 mg/dL Triglycerides 142 <150 [...] Interpretation:118 Performing Lab: Notes/Report: Test performed by [facility] [address] [place] [address] , [address], [place] [address] Gamal Haywood MD, Stitch Bonding Machine Drawer In CLIA: [id number] Vitamin D 25-Hydroxy 118.0 30.0-100.0 ng/mL Interpretation [...] Negative, annual f/u Reason For Referral Reason at [facility] Angelo cowan for post op hip replacement rehab Diagnosis 1 S/P hip hemiarthropl asty (Z96.649) Referral Organization [facility] Referring Provider First Name Keeley Gunn Referring Provider Last Name Serafin Referring Provider [facility] dee Referred Provider Physical Therapy, . Referred Provider Specialty Physical The rapist General Notes Nanci James 06/21/20 24 9:22:13 AM > faxed to scheduling at [facility] Referral Priority Routine Reason skin lesions on face . 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 Referred Provider Specialty Dermatology General Notes Nanci James 024 1:54:17 PM > referral submitted via [facility] website, Nanci James 08/24/2024 2:58:20 PM > appt 08/25/2024 at 10:00am in [facility] Referral Priority Routine Reason Dr. José Miguel jaime [place] for PAD, carotid disease; dilated left atrium Diagnosis 1 PAD (peripheral beryl ry disease) (I73.9) Referral Organization Jacquie Referring Provider First Name Keeley Gunn Referring Provider Last Name Serafin Referring Provider Speciality Family Jae price Referred Provider Cardiology, . Referred Provider Specialty Cardiovascul ar Disease General Notes Nanci James 2024 10:46:57 AM > faxed to [place] office as he does not have a [place] number Referral Priority Routine Medications Medication SIG (Take, Route, Frequency, Duration) Notes Start Date End Date Status Omeprazole 40 MG 1 cap(s) orally once a day; Duration: 30 day(s) 11/28/2020 Active amLODIPine Besylate 10 MG 1 tab(s) Orall y once a day Active Aspir-Low 81 MG 1 tab(s) orally once a day; Duration: 30 day(s) Active Furosemide 40 MG 1/2 tab(s) orally on ce a day Active CareTouch CPAP & BIPAP Hose 1 DIRECTED 11/10/2018 Active Benazepril HCl 40 MG 1 tab(s) orally onc e a day Active Nitroglycerin 0.4 MG 1 tab(s) sublingual ly every 5 minutes prn chest pain 11/28/2020 Active Metoprolol Succinate 100 MG 1 tab(s) orally once a day Active Nabumetone 500 MG 1 tablet Orally Twic e a day; Duration: 30 day(s) Active Alendronate Sodium 70 MG 1 tab(s) orally once a week Active Calcium + Vitamin D3 600-5 MG-MCG 1 tab(s) orally TID Active Flonase Allergy Relief 50 MCG/ACT 2 spray(s) intranasally once a day Active Ferrous Sulfate 325 (65 Fe) MG 1 tablet Orally once daily 08/28/2024 Active DULoxetine HCl 30 MG 1 capsule Orally On ce a day; Duration: 30 day(s) Not-Taking Albuterol Sulfate HFA 108 (90 Base) MCG/ACT 2 puff(s) inhaled every 6 hours prn Active Atorvastatin Calcium 40 MG TAKE 1 TABLET BY MOUTH ONCE DAILY AT BEDTIME; Duration: 90 Active Vitamin D3 25 MCG (1000 UT) 1 capsule orally once a day Active July Allergy 180 MG 1 tab(s) orally o nce a day 02/21/2021 Active Clopidogrel Bisulfate 75 MG 1 tab(s) orally once a day Active traMADol HCl 50 MG 1-2 tab(s) Orally q6 h prn 06/20/2024 Active DULoxetine HCl 60 MG 1 capsule Orally On ce a day; Duration: 90 days Active Immunizations Vaccine Route Administration Date Status Comme nts tuberculin (ppd) ID Intradermal 07/27/2005 Administered tuberculin (ppd) IM Intramuscular 05/28/2008 Administered Tetanus Tdap-Adacel (over 7yrs) IM Intramuscular 06/24/2012 Administered Tetanus Tdap-Adacel (over 7yrs) IM Intramuscular 08/26/2023 Administered Shingrix Unknown 02/25/2018 Pending Prevnar (PCV20) IM Intramuscular 08/26/2023 Administered Prevnar (PCV13) IM Intramuscular 03/12/2015 Administered Prevnar (PCV13) IM Intramuscular 08/26/2015 Administered Fluzone High Dose (65yr and older) IM Intramuscular 08/26/2015 Administered Fluzone High Dose (65yr and older) IM Intramuscular 08/14/2016 Administered Fluzone High Dose (65yr and older) IM Intramuscular 08/31/2017 Administered Fluzone High Dose (65yr and older) IM Intramuscular 09/05/2018 Administered Fluzone High Dose (65yr and older) IM Intramuscular 08/25/2019 Administered Fluzone High Dose (65yr and older) IM Intramuscular 08/23/2020 Administered Fluzone High Dose (65yr and older) IM Intramuscular 08/15/2021 Administered Fluzone High Dose (65yr and older) IM Intramuscular 08/14/2022 Administered Fluzone High Dose (65yr and older) IM Intramuscular 08/26/2023 Administered Fluzone High Dose (65yr and older) IM Intramuscular 08/24/2024 Administered COVID 19 Moderna IM Intramuscular 01/02/2021 Administered COVID 19 Moderna IM Intramuscular 01/30/2021 Administered COVID 19 Moderna Unknown 09/11/2021 Administered COVID 19 Moderna Unknown 06/18/2022 Administered PNEUMOVAX 23 VACCINE IM Intramuscular 03/09/2017 Administe red Problems Problem Type SNOMED Code ICD Code Onset Dates Problem Status W/U Status Risk Notes Problem Vitamin D deficiency (87662664) Vitamin D deficiency (E55.9) Active confirmed Problem Vitamin B12 deficiency (329516452) Vitamin B12 deficiency (E53.8) Active confirmed Problem Anemia (177432125) Anemia (D64.9) Active confirmed Problem Essential hypertension (30599857) Essential hypertension (I10) Active confirmed Problem Abnormal mammogram (588961226) Abnormal mammogram (R92.8) Active confirmed Problem Seasonal allergy (749954572) Seasonal allergies (J30.2) Active confirmed Problem Iron deficiency anemia (95112216) Iron deficiency anemia (D50.9) Active confirmed Problem Primary osteoarthritis (419132289) Primary osteoarthritis involving multiple joints (M15.0) Active confirmed Problem COPD - Chronic obstructive pulmonary disease (11285552) Chronic obstructive pulmonary disease, unspecified COPD type (J44.9) Active confirmed Problem Obstructive sleep apnea syndrome (83669144) FRANSISCO (obstructive sleep apnea) (G47.33) Active confirmed Problem Localized, primary osteoarthritis of the pelvic region and thigh (679519704) 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) Active confirmed Problem Tobacco user (308695188) Cigarette nicotine dependence without complication (F17.210) Active confirmed Problem Dyslipidemia (492935612) Dyslipidemia (E78.5) Active confirmed Problem Peripheral vascular disease (476790833) PAD (peripheral artery disease) (I73.9) Active confirmed Problem Tobacco use (009096940) Tobacco use disorder (F17.200) Active confirmed Problem Age-related osteoporosis (162103696) Osteoporosis without current pathological fracture, unspecified osteoporosis type (M81.0) Active confirmed Problem Osteoporosis (99411672) Osteoporosis, unspecified (M81.0) Active confirmed Problem Atelectasis (27118831) Atelectasis of both lungs (J98.11) Active confirmed Problem History of cigarette smoking (Z87.891) Active confirmed Problem Left carotid artery occlusion (967778289254315) Left carotid stenosis (I65.22) Active confirmed Problem S/P hip hemiarthroplasty (Z96.649) Active confirmed Vital Signs Heart Rate 75 /min 10/03/2024 Blood pressure diastolic 70 mm Hg 04/12/2025 Height 63.50 in 04/12/2025 Blood pressure systolic 120 mm Hg 04/12/2025 Weight 110.2 lbs 04/12/2025 BMI 19.21 kg/m2 04/12/2025 Encounters Encounter Location Date Provider [facility] [address] [place] [id number] 06/20/2024 R Luis A Betancourt S/P hip hemiarthropl asty Z96.649 and Hypoxemia R09.02 [facility] [address] [place] [id number] 08/24/2024 R Luis A Betancourt Essential hypertensi on I10 ; Dyslipidemia [...] L57.0 and Screening for breast cancer Z12.39 [facility] [address] [place] [id number] 09/13/2024 R Luis A Betancourt Anemia D64.9 [facility] [address] [place] [id number] 10/03/2024 R Luis A Betancourt Iron deficiency anem ia D50.9 [facility] [address] [place] [address] ZOH[place] Chaves [id number] 02/15/2025 R Luis A Betancourt Adult general [...] in adult Z68.1 and Osteoporosis, unspecified M81.0 [facility] [address] [place] [id number] 04/12/2025 Luis A Betancourt Tobacco use disorder F17.200 ; Chronic obstructive pulmonary disease, unspecified COPD type J44.9 ; Atelectasis of both lungs J98.11 and FRANSISCO (obstructive sleep apnea) G47.33 [facility] [address] [place] [address] ZOHRA Chaves [id number] 06/21/2024 Luis [facility]ancourt [facility] [address] [place] [address] ZOHRA Chaves [id number] 08/28/2024 Luis A Betancourt Vitamin D deficiency E55.9 [facility] [address] [place] [address] [place] [id number] 02/20/2025 Luis A Betancourt Assessments Encounter Date Diagnosis (ICD Code) Assessment Notes Treatment Notes Treatment Clinical Notes Section Notes 06/20/2024 Hypoxemia (ICD-10 - R09.02) ---post op Okay to discontinue supplemental oxygen 06/20/2024 S/P hip hemiarthroplasty (ICD-10 - Z96.649) 08/24/2024 Essential hypertension (ICD-10 - I10) 08/24/2024 Dyslipidemia (ICD-10 - E78.5) 08/28/2024 Vitamin D deficiency (ICD-10 - E55.9) 09/13/2024 Anemia (ICD-10 - D64.9) 10/03/2024 Iron deficiency anemia (ICD-10 - D50.9) 02/15/2025 Essential hypertension (ICD-10 - I10) 02/15/2025 Adult general medical examination (ICD-10 - Z00.00) Patient instructed to return to office Annually for Annual Wellness Visits to include annual screenings of Pain assessment, Functional Ability assessment, Cognitive Ability assessment, Fall Risk assessment, Depression screening and Bladder control screening. 04/12/2025 Chronic obstructive pulmonary disease, unspecified COPD type (ICD-10 - J44.9) 04/12/2025 Tobacco use disorder (ICD-10 - F17.200) 02/15/2025 Dyslipidemia (ICD-10 - E78.5) 04/12/2025 Atelectasis of both lungs (ICD-10 - J98.11) 08/24/2024 Chronic obstructive pulmonary disease, unspecified COPD type (ICD-10 - J44.9) 08/24/2024 Primary osteoarthritis involving multiple joints (ICD-10 - M15.0) 04/12/2025 FRANSISCO (obstructive sleep apnea) (ICD-10 - G47.33) 02/15/2025 Chronic obstructive pulmonary disease, unspecified COPD type (ICD-10 - J44.9) 02/15/2025 Primary osteoarthritis involving multiple joints (ICD-10 - M15.0) 08/24/2024 FRANSISCO (obstructive sleep apnea) (ICD-10 - G47.33) 08/24/2024 PAD (peripheral artery disease) (ICD-10 - I73.9) 02/15/2025 FRANSISCO (obstructive sleep apnea) (ICD-10 - G47.33) 02/15/2025 PAD (peripheral artery disease) (ICD-10 - I73.9) 08/24/2024 Osteoporosis without current pathological fracture, unspecified osteoporosis type (ICD-10 - M81.0) 08/24/2024 Seasonal allergies (ICD-10 - J30.2) 02/15/2025 Osteoporosis without current pathological fracture, unspecified osteoporosis type (ICD-10 - M81.0) 02/15/2025 Seasonal allergies (ICD-10 - J30.2) 08/24/2024 Vitamin D deficiency (ICD-10 - E55.9) 08/24/2024 Tobacco use disorder (ICD-10 - F17.200) 02/15/2025 Vitamin D deficiency (ICD-10 - E55.9) 02/15/2025 Tobacco use disorder (ICD-10 - F17.200) 08/24/2024 History of cigarette smoking (ICD-10 - Z87.891) 08/24/2024 Anemia (ICD-10 - D64.9) 02/15/2025 Anemia (ICD-10 - D64.9) 02/15/2025 History of cigarette smoking (ICD-10 - Z87.891) 08/24/2024 Vitamin B12 deficiency (ICD-10 - E53.8) 02/15/2025 Vitamin B12 deficiency (ICD-10 - E53.8) 08/24/2024 Encounter for immunization (ICD-10 - Z23) 08/24/2024 AK (actinic keratosis) (ICD-10 - L57.0) 02/15/2025 Weight loss, unintentional (ICD-10 - R63.4) Check labs. May need referral for EGD 08/24/2024 Screening for breast cancer (ICD-10 - Z12.39) 02/15/2025 Early satiety (ICD-10 - R68.81) 02/15/2025 Body mass index (BMI) of 19.0 to 19.9 in adult (ICD-10 - Z68.1) 02/15/2025 Osteoporosis, unspecified (ICD-10 - M81.0) Plan Of Treatment Pending Test Test Name Order Date CT Scan : Chest, low dose 04/12/2025 Next Appt Details Provider Name:Keeley Giordano, 08/21/2025 09:00:00 AM, [address], [address], [place], [place], [id number], Insurance Providers Payer Name Payer Address Payer Phone Subscriber Number Group Number Insured Name Patient Relationship to Insured Coverage Start Date Coverage End Date MEDICARE PART B [address] [address] [id number] [phone] [id number] NIHARIKA NARVAEZ Self - [place] [address] [id number] NIHARIKA NARVAEZ Self - patient is the insured Medications Administered Medication Instructions Date of Administration Dosage Notes Depo- Medrol 40 mg/ml 09/27/2015 1 mL Depo- Medrol 40 mg/ml 06/02/2016 1.5 mL Dexamethasone 08/24/2006 1 mL Dexamethasone 02/25/2008 1 mL Dexamethasone 07/14/2008 1 mL Dexamethasone 01/15/2009 1 mL Dexamethasone 01/18/2009 1 mL Dexamethasone 06/28/2009 1 mL Dexamethasone 07/12/2009 1 mL Dexamethasone 01/24/2010 1 mL Dexamethasone 09/09/2010 1 mL Dexamethasone 07/05/2012 1 mL Dexamethasone 11/04/2012 1 mL Dexamethasone 05/01/2014 1 mL Dexamethasone 05/21/2014 1 mL Dexamethasone 10/23/2016 1 mL Dexamethasone 09/21/2017 1 mL Dexamethasone 12/04/2021 1 mL Pt tolerate d well Dexamethasone 06/03/2023 1 mL Medical (General) History Medical History History ICD Code Hyperlipidemia dysplastic colon polyp 1999 Sleep apnea on c-PAP OA Vitamin D deficiency Seasonal allergies 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 Garibay/polyp 09/2010 ORIF left femur fracture 10/2017 left hip replacement - Dr. Chung 04/2018 Stent placement both legs 03/2021 Cataract Surgery 05/2022 Right Hip Replacement Total 05/02/2024 Hospitalization History Reason Date(Month/Year) Bronchitis- [facility] in [place] 11/2014
--- OUTSIDE RECORDS SUMMARY | 2025-05-04 15:20 | XMS_ITS | Referral Summary ---
Author Organization [employer] [facility] [employer] Address [address] [place] [address] Care Team Providers Care Counselor Education Professor Name Role Phone Ezequiel Houston MD Primary [...] your living situation today? I have a [facility] place to live 05/02/2024 Think about [...] Do you speak a language other than [place] [facility]? No 05/02/2024 Do you want help with [...] 05/02/2024 9:38 PM EDT Plan of Treatment Not on file Insurance MEDICARE [place] [address] [place] [address] Advance Directives For more information, please contact: [phone] * Full Code (Latest Code Status on File) Date Activated Date Inactivated Comments 05/02/2024 8:35 PM 05/03/2024 7:01 PM -Attempt Res uscitation if person has no pulse and is not breathing. -If no pulse or not breathing attempt CPR/CODE. -Call Rapid Response if patient is in distress. Care Teams Counselor Education Professor Relationship Specialty Start Date End Date Ezequiel Houston MD [address] [place] [address] PCP - General Orthopedic Surgery 05/02/24
--- OUTSIDE RECORDS SUMMARY | 2025-05-04 15:20 | XMS_ITS | Data Portability ---
Author Organization [facility] HAO Keene [place] Address [address] [facility] [address] [place] [address] Care Team Providers Care Firmware Developer Name Role Phone MAXIMILIANO CORCORAN Primary Care Provider Assessment No assessment recorded. Plan of Treatment Reminders Order Date Submit Date Provider Last Modified By Organization Details Last Modified Time Details Appointments DERM ESTABL ISHED 2024 01:20P M OCTAVIO MAY SLEEVE SEPARATOR Not available Not available Not available Lab [...] Time 08/25/20 24 Destruction Premalignant Lesion(s) completed [facility] 08/25/2024 10:19:57 08/25/20 Destruction BN Lesions completed [facility] 08/25/2024 10:20:02 cardiac catheterization completed [facility] 05/01/2025 15:02:04 Imaging Results None recorded. Procedure [...] SNOMED-CT Code Diagnosis ICD10 Code Diagnosis Note [id number] LISSETT Mina APRN [facility] [address] [facility] [place] [address] 08/25/2024 09:55:48 08/25/2024 10:21:29 Multiple benign melanocytic nevi [id number] D22.5 - Benign moles seen on exam [...] changing or worrisome lesions Seborrheic keratosis 394 618431 L82.1 - Benign overgrowth s of skin - Hereditary Senile angioma 1105703 I 78.1 - Benign blood vessel growths - Hereditary Solar lentigo 23083425 L 81.4 - Benign brown spots - Sun-induce d Actinic keratosis 177681 007 L57.0 Actinic keratoses are precancero us lesions that may progress to squamous cell carcinoma if untreated. UV light and genetics may increase risk. Treated lesions should blister, scab over, and heal within a few weeks. If treated lesion(s) does not resolve within 1-2 months, patient agrees to follow up for re-evaluat ion. Inflamed s eborrheic keratosis [id number] L82.0 L53.8 Counseled on benign nature. Pt elected to treat with liquid nitrogen due to painful irritation . May recur or persist after treatment. Discolorat ion or scarring is possible. [id number] LISSETT Mina, KELLY [facility] [place] [address] [place] [address] 05/01/2025 13:58:03 05/01/2025 15:27:10 Multiple benign melanocytic nevi 100225989 D22.5 - Benign moles seen on exam [...] changing or worrisome lesions Seborrheic keratosis 394 557377 L82.1 - Benign overgrowth s of skin- Hereditary No signs of malignancy or precancero us change today- Rec no treatment if not bothersome Solar lentigo 19340721 L 81.4 - Benign brown spots - Sun-induce d Health Concerns Section Related Observation LastModified by Organization Detai ls LastModified Time None Recorded Concern Status LastModified by Organization Details LastModified Time None Recorded Advance Directives Directive None Recorded Payers Insurance Date Sequence Insurance Name Policy Number Policy Baxter Covered Member ID Baxter Member ID Guarantor Name 04/28/2025 1 [place] Antonia Pickens [id number] Antonia Pickens 04/28/2025 2 [employer] [place] (MEDICARE SUPPLEMENT) Antonia Pickens [id number] Antonia Pickens Notes Date Note Type Note Provider Name and Address Organization Details Recorded Time 08/25/2024 text/html Skin LesionRepor arabella bypatient.Notes:I have some spots on my face my PCP wants checked LISSETT MAY, KELLY [address] [place], [address], [facility] 08/28/2024 07:32:27 05/01/2025 text/html I am here for a f/u on AK'sLocation: R eye.Reports: Pt reports her PCP recommended to come back to check AK's.LV: 08/31Pt is accompanied by partner. LISSETT MAY, JOURNEYMAN LEVEL ACOUSTIC ANALYST [address] [place], [address], [facility] 05/02/2025 08:07:12 OBGyn Episode No OBEpisode recorded.
== END 2025-05-04 23:59 | disposition home or self-care (01) ==
LOC: RAD 15:17
PROVIDERS: PCP Family Medicine; Visit Provider Family Medicine
DX: R91.8 Other nonspecific abnormal finding of lung field (principal); F17.200 Nicotine dependence, unspecified, uncomplicated; Z13.9 Encounter for screening, unspecified
CPT/HCPCS: 71271

== ENCOUNTER 2025-05-30 08:20 | Day surgery (SDC) | payer MEDICARE, OTHER, SELFPAY ==
[2025-05-28 15:08] VITALS: BMI 19.1
--- NOTE | 2025-05-30 07:14 | EXP.HP ---
History of Present Illness *Admission Date: 05/30/25 *Reason for visit:: Loss of appetite, weight loss, early satiety and anemia *History of present illness: Mrs. Pickens is a 74-year-old female who is here for diagnostic EGD secondary to loss of appetite, weight loss, early satiety and iron deficiency anemia. The examination is deemed medically necessary for diagnostic EGD. The patient has been seen, interviewed and examined prior to the procedure by both myself and the anesthesia provider. [facility] Disclaimer: The information contained in this section may have been updated after the patient was seen, as this information can be updated by other users. Medical History Smoking greater than 30 pack years Lung nodule COPD mixed type Sleep apnea COPD (chronic obstructive pulmonary disease) Menopause Osteoporosis Osteoarthritis Carpal tunnel syndrome History of cataract Hyperlipidemia Hypertension Tobacco abuse Renal artery stenosis Edema of left lower extremity Pain in left lower leg Claudication Surgical History History of right hip replacement History of colonoscopy History of carpal tunnel release History of left hip replacement Family History Brother Family history of myocardial infarction Family history of diabetes mellitus type II Mother Family history of myocardial infarction Other Family history of stroke Social History Smoking Status: Current every day smoker tobacco type: cigarettes packs per day: 1 alcohol intake: current substance use type: denies use current occupational status: retired Travel in the last 8 weeks?: None household members: spouse housing: house current occupational exposures/hazards: No caffeine: No Have you lived/traveled outside US in past 30 days?: No Contact w/someone who lives/traveled outside US past 30 days?: No Exposure to someone with infectious disease in past 14 days?: No Do you have a fever (greater than 100.4 F or 38 C)?: No Have you tested positive for COVID-19?: No Exposed to someone with COVID-19 in past 14 days?: No Do you have a sore throat?: No Do you have a cough?: No Do you have any weakness?: No Do you have any diarrhea?: No Are you experiencing any unusual bleeding?: No Do you have any muscle aches/pain?: No Do you have any abdominal pain?: No Are you experiencing loss of taste or smell?: No Other Medical History Have you received the Flu Vaccine for this season: No Have you received the Pneumonia Vaccine: Yes Review of Systems Review of Systems Review of systems (narrative): Negative *Cardiovascular Comments: Negative *Gastrointestinal Comments: Negative *Genitourinary Comments: Negative *Musculoskeletal Comments: Negative *Neurologic Comments: Negative Meds Home Medications and Allergies Home Medications ?Medication ?Instructions ?Recorded ?Confirmed ?Type aspirin 81 mg tablet,delayed 81 mg PO DAILY heart health 03/20/21 05/30/25 History release (Adult Low Dose Aspirin) calcium 600 mg (as 1 tab PO DAILY Supplement 03/20/21 05/30/25 History carbonate)-vitamin D3 5 mcg (200 unit) tablet (Calcium 600 + D(3)) fluticasone propionate 50 2 spray intranasal DAILY allergies 03/20/21 05/30/25 History mcg/actuation nasal spray,suspension clopidogrel 75 mg tablet 75 mg PO DAILY Blood thinner 09/14/22 05/30/25 History alendronate 70 mg tablet 70 mg PO WEEKLY . 02/17/23 05/30/25 History metoprolol succinate 100 mg 100 mg PO DAILY BLOOD PRESSURE 03/17/23 05/30/25 History tablet,extended release 24 hr albuterol sulfate 90 mcg/actuation 2 puff inhalation Q6H PRN 03/15/24 05/30/25 History aerosol inhaler Shortness Of Breath amlodipine 10 mg tablet 10 mg PO DAILY 03/15/24 05/30/25 History furosemide 40 mg tablet 20 mg PO DAILY 04/17/25 05/30/25 History atorvastatin 40 mg tablet 40 mg PO DAILY 05/15/25 05/30/25 History benazepril 40 mg tablet 40 mg PO DAILY 05/15/25 05/30/25 History duloxetine 60 mg capsule,delayed 60 mg PO DAILY 05/15/25 05/30/25 History release New Prescriptions to Start Prescriptions: Allergies Allergy/AdvReac Type Severity Reaction Status Date / Time cefdinir (From Omnicef) Allergy Intermediate disoriented Verified 05/30/25 09:01 ibandronate sodium (From Allergy Intermediate BP high & Verified 05/30/25 09:01 Boniva) low moxifloxacin (From Avelox) Allergy Unknown Unknown Verified 05/30/25 09:01 allergy reaction Exam Data for Last 24 hours I & O for Last 24 hours: Intake & Output 05/27/25 05/28/25 05/29/25 05/30/25 23:59 23:59 23:59 23:59 Weight 108 lb *Routine HEENT Exam Head: Present normocephalic Eye: Present EOMI and PERRL ENT: Present mucous membranes moist *Routine Neck Exam Neck: Present supple *Routine Respiratory Exam Respiratory: Present CTA bilaterally *Routine Cardiovascular Exam Cardiovascular: Present RRR *Routine Abdominal Exam Abdominal: Present soft and normoactive bowel sounds; Absent tenderness *Routine Rectal Exam Rectal:: deferred *Routine Genitalia Exam Genitalia:: deferred *Routine Extremities Exam Extremities: Absent cyanosis, clubbing or edema *Routine Skin Exam Skin: Present warm; Absent rash *Routine Neurological Exam Neurological: Present alert and oriented X3 Assessment and Plan *Assessment and plan (1) Iron deficiency anemia: Status: Acute Category: Medical Code(s): D50.9 - Iron deficiency anemia, unspecified (2) Loss of appetite: Status: Acute Category: Medical Code(s): R63.0 - Anorexia (3) Early satiety: Status: Acute Category: Medical Code(s): R68.81 - Early satiety (4) Unintentional weight loss: Status: Acute Category: Medical Code(s): R63.4 - Abnormal weight loss Plan A/P: 1. Iron deficiency anemia with loss of appetite, weight loss and early satiety is the preprocedural diagnosis. The patient will be anesthetized/sedated using MAC sedation. The patient has been seen and examined. Cardiac and lung assessment prior to the examination is stable. Proceed with planned diagnostic EGD.
[2025-05-30 09:06] VITALS: BP 155/87; PULSE 65; RESP 16; TEMP 36.1; O2SAT 97
[2025-05-30] MEDS: LACTATED RINGERS 1000ML 1,000 ML 50 ML IV (09:12)
--- NOTE | 2025-05-30 09:22 | EXP.ANES.CKL ---
[facility] Disclaimer: The information contained in this section may have been updated after the patient was seen, as this information can be updated by other users. Medical History Smoking greater than 30 pack years Lung nodule COPD mixed type Sleep apnea COPD (chronic obstructive pulmonary disease) Menopause Osteoporosis Osteoarthritis Carpal tunnel syndrome History of cataract Hyperlipidemia Hypertension Tobacco abuse Renal artery stenosis Edema of left lower extremity Pain in left lower leg Claudication Surgical History History of right hip replacement History of colonoscopy History of carpal tunnel release History of left hip replacement Family History Brother Family history of myocardial infarction Family history of diabetes mellitus type II Mother Family history of myocardial infarction Other Family history of stroke Social History Smoking Status: Current every day smoker tobacco type: cigarettes packs per day: 1 alcohol intake: current substance use type: denies use current occupational status: retired Travel in the last 8 weeks?: None household members: spouse housing: house current occupational exposures/hazards: No caffeine: No Have you lived/traveled outside US in past 30 days?: No Contact w/someone who lives/traveled outside US past 30 days?: No Exposure to someone with infectious disease in past 14 days?: No Do you have a fever (greater than 100.4 F or 38 C)?: No Have you tested positive for COVID-19?: No Exposed to someone with COVID-19 in past 14 days?: No Do you have a sore throat?: No Do you have a cough?: No Do you have any weakness?: No Do you have any diarrhea?: No Are you experiencing any unusual bleeding?: No Do you have any muscle aches/pain?: No Do you have any abdominal pain?: No Are you experiencing loss of taste or smell?: No [facility] Anesthesia Checklist Patient Identification Patient Identification: Arm Band and Verbal (Name & ) Structural Data Admitted From: Home Planned Operative Procedure/s: EGD Consent for Planned Operative Procedure(s) Verified: Yes Verified Documents: Surgical Consent NPO Status Verified Time NPO: 00:00 Chart Verification Results Verified: None Additional verifications Anesthesia Reactions: No Hx Blood Transfusions: No Blood Transfusion Reaction: No Airway Assessment Mallampati Score:: Class II C-Spine Mobility Assessed: Yes TMJ Mobility Assessed: Yes Dentition: Edentulous Neurological Assessment Level of Consciousness: Awake, Alert and Appropriate Hx Seizures: No Numbness or tingling in extremities: No Anesthesia Plan Anesthesia Risk discussed: Yes Anesthesia Plan: Verified ASA Class: III Anesthesia Type: MAC
--- NOTE | 2025-05-30 10:20 | HMH.PROCNOTE ---
[facility] Procedure Note Date: 05/30/25 Time: 10:27 Procedure Note:: Upper Endoscopy Procedure Report: Esophagogastroduodenoscopy with cold biopsies Endoscopost: Guy Judd II, MD Referring Physician: Luis A Betancourt MD Date of Procedure: May 30, 2025 Equipment: Olympus GIF-1100 standard upper endoscope Sedation: MAC sedation Indications: Mrs. Pickens is a 74-year-old female with loss of appetite, fullness, early satiety and unintentional weight loss. The patient does state that she originally weighed about 160 pounds and now weighs about 108 pounds. She had lost 12 to 15 pounds in the last 2 or 3 months. She does have a history of COPD. She does have some chronic constipation and did have a colonoscopy with Dr. Tucker Garibay in June 2024. There were some hyperplastic rectosigmoid polyps but the examination was completed to the terminal ileum. The patient reports no abdominal pain, heartburn, dysphagia or dyspepsia. The patient also has some borderline anemia with hemoglobin 11.8 and hematocrit 35.1. Her liver chemistries have been normal. The patient did have a CT scan of the lung showing interval development of the lobulated masslike density in the left upper lobe. This was 23 x 29 mm. Procedure: Prior to the procedure, a history and physical exam was performed, and patient's medications and allergies were reviewed. The risks, benefits and alternatives of the sedation and procedure were discussed with the patient. All questions were answered and informed consent was obtained. The patient was brought to the procedure room. Patient identification and proposed procedure were verified by the physician and the nurse. The patient was placed in a left lateral decubitus position and the scope was passed under direct vision. Throughout the procedure, the patient's blood pressure, pulse, and oxygen saturations were monitored continuously. The upper GI endoscopy was accomplished without difficulty. The patient tolerated the procedure well. Findings: The scope was passed directly into the upper esophagus and advanced to the fourth portion of the duodenum. The post bulbar duodenum, ampulla and duodenal bulb were normal with normal mucosa and conniventes. The scope was withdrawn through a normal duodenal bulb and pylorus into the stomach. There was some erosive gastropathy of the antrum. The body and fundus of the stomach were normal. Upon retroflexion there was a very small sliding 1 to 2 cm hiatal hernia. Cold biopsies were taken from the antrum. The scope was then withdrawn into the esophagus. There were grade 1 esophageal varices. There was no evidence of reflux esophagitis or Espinoza's. The remainder of the esophageal mucosa was normal. Impression: 1. Grade 1 esophageal varices (without stigmata) 2. Mild erosive gastropathy of antrum Plan: I will follow-up the biopsies. The patient does not have elevated liver chemistries and no prior history of cirrhosis or portal hypertension. She does have the new pulmonary mass and will be followed by pulmonary with probable biopsy. 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 I would consider adding appetite stimulant presently (Megace). I will discuss the findings with the patient and family.
[2025-05-30 10:29] VITALS: BP 128/56; PULSE 66; RESP 18; TEMP 36.4; O2SAT 96
[2025-05-30 10:39] VITALS: BP 123/54; PULSE 64; RESP 18; O2SAT 94
[2025-05-30 10:49] VITALS: BP 118/63; PULSE 63; RESP 18; O2SAT 96
[2025-05-30 10:59] VITALS: BP 121/67; PULSE 66; RESP 18; TEMP 36.4; O2SAT 97
== END 2025-05-30 11:05 | disposition home or self-care (01) ==
PROVIDERS: PCP Family Medicine; Visit Provider Internal Medicine Gastroenterology
PROC: 0DJ08ZZ Inspection of Upper Intestinal Tract, Via Natural or Artificial Opening Endoscopic (ICD-10-PCS; CPT 43239; principal; 2025-05-30 10:00)
DX: K29.50 Unspecified chronic gastritis without bleeding (principal); B96.81 Helicobacter pylori [H. pylori] as the cause of diseases classified elsewhere; I85.00 Esophageal varices without bleeding; K31.9 Disease of stomach and duodenum, unspecified; J44.9 Chronic obstructive pulmonary disease, unspecified; E78.5 Hyperlipidemia, unspecified; I10 Essential (primary) hypertension; M19.90 Unspecified osteoarthritis, unspecified site; F17.210 Nicotine dependence, cigarettes, uncomplicated; Z79.82 Long term (current) use of aspirin; Z79.899 Other long term (current) drug therapy
CPT/HCPCS: 43239; J2003; J2704; J7120

== ENCOUNTER 2025-06-12 15:19 | Outpatient (CLI) | payer MEDICARE, OTHER, SELFPAY ==
--- OUTSIDE RECORDS SUMMARY | 2025-02-15 05:15 | XMS_ITS ---
Author Organization [facility] Address [address] [facility] [address] [place] [phone] Care Team Providers Care Healthcare Account Manager Name Role Phone Keeley Betancourt Primary Care [...] Interpretation: Performing Lab: Notes/Report: Test performed by [employer], [facility] [address] [place] [address] , [address], [place] [address] Gamal Haywood MD, Unisaw Operator CLIA: [id number] Vitamin B12 527 592-8000 pg/mL P-Comprehensive Metabolic Pa yoseph (CMP) Reviewed date:02/20/2025 09:44:27 PM Interpretation: Performing Lab: Notes/Report: Test performed by [facility] [address] [place] [address] , [address], [place] [address] Gamal Haywood MD, Unisaw Operator CLIA: [id number] Sodium 137 135-145 mmol/L Potassium 3.7 3.5-5.3 [...] Interpretation: Performing Lab: Notes/Report: Test performed by [facility] [address] [place] [address] , [address] [id number] Gamal Haywood MD, Unisaw Operator CLIA: [id number] Iron 140 37-145 ug/dL P-Lipid Panel Reviewed date:02/20/2025 09:44:27 PM Interpretation: Performing Lab: Notes/Report: Test performed by [facility] [address] [place] [address] , [address], [place] [address] Gamal Haywood MD, Unisaw Operator CLIA: [id number] Cholesterol 163 <200 mg/dL Triglycerides 106 <150 [...] Interpretation: Performing Lab: Notes/Report: Test performed by [facility] [address] [facility] [address], [place] [address] Gamal Haywood MD, Unisaw Operator CLIA: [id number] TSH 2.17 0.43-5.25 mU/L P-Microalbumin/Creatinine, R andom Urine Sample Reviewed date:02/20/2025 09:44:27 PM Interpretation: Performing Lab: Notes/Report: Test performed by [facility] [address] [facility] , [address], [place] [address] Gamal Haywood MD, Unisaw Operator CLIA: [id number] Albumin/Creatinine Ratio, Urine 18 0-30 ug/m g Microalbumin, Urine, Random 1.4 Creatinine, Urine 77.8 Reason For Referral Reason Dr. José Miguel [place] for PAD, carotid disease; dilated left atrium Diagnosis 1 PAD (peripheral beryl ry disease) (I73.9) [facility] Referring Provider First Name Keeley Gunn Referring Provider Last Name Serafin Referring Provider [facility] Referred Provider Cardiology, . Referred Provider Specialty Cardiovascul ar Disease General Notes Nanci James 2024 10:46:57 AM > faxed to [place] office as he does not have a [place] number Referral Priority Routine REASON FOR VISIT [...] Status Risk Notes Problem Vitamin B12 deficiency (245995700) Vitamin B12 deficiency (E53.8) Active confirmed Problem Osteoporosis, unspecified (M81.0) Active confirmed Vital Signs Blood pressure systolic 120 mm Hg 02/16/20 25 Blood pressure diastolic 60 mm Hg 025 Height 63.50 in 02/15/2025 Weight 110.4 lbs 02/15/2025 BMI 19.25 kg/m2 02/15/2025 Encounters Encounter Location Date Provider Diagnosis [facility] [address] [facility] [address] [place], [place] [phone] 02/15/2025 R Luis A Betancourt Adult general [...] Details 02/16/2025 02/16/2025, Dr. Guera Abdi in [place] for PAD, carotid disease; dilated left atrium , . Cardiology Next Appt Details Follow Up: 6 Months, Reason: Provider Name:Keeley Giordano, 08/21/2025 09:00:00 AM, [address] [facility], [address] , [place], [place], [phone], Progress Notes * NIHARIKA NARVAEZDOB:1950 (74 yo F)Acc No.[id number]:02/15/2025 Annual Wellness Visit Patient: Chery VELANDREW REBOLLEDOET Provider: Keeley Betancourt M.D. :1950 A ge:74 Y S ex:Female Date:02/15/2025 Address:[address] [place] [address], [place] [id number] Subjective: * Chief Complaints: * 1 . [...] * Hospitalization/Major Diagno stic Procedure: Iveth carrion- [facility] in [place] 11/2014. * Family History: [...] Cardiology??Cardiovascular Disease ?Reason:Dr. José Miguel Abdi in [place] for PAD, carotid disease; dilated left atrium [...] AM)* Value Reference Range V itamin B12 542 560-1149 - pg/mL * Keeley Betancourt 02/20/2025 09:44:09 [...] OF ACTIVITY ASSESS, 4040F PNEUMOC IMM ORDER/ADMIN, 89069 CBC WITH AUTO DIFF, 1125F AMNT PAIN [...] * Images: Billing Information: * Visit Code: 00710 Office Visit, Est Pt., Level 3. Modifiers: 25 * Procedure Codes: G0439 ANNUAL WELLNESS VST; PPS SUBSQT VST. G2211 Complex e/m visit add on. G0444 ANNUAL DEPRESSION SCREENING 15 MIN. 1090F PRES/ABSN URINE INCON ASSESS. 3288F FALL RISK ASSESSMENT DOCD. 1170F FXNL STATUS ASSESSED. 1159F MED LIST DOCD IN RCRD. 1003F LEVEL OF ACTIVITY ASSESS. 4040F PNEUMOC IMM ORDER/ADMIN. 89869 CBC WITH AUTO DIFF. 1125F AMNT PAIN NOTED PAIN PRSNT. G8510 NEG SCR Depression PT NOT ELIG F/U/PLN DOC. 3074F SYST BP LT 130 MM HG. 3078F DIAST BP < 80 MM HG. * Electronic signature of Keeley Betancourt MD on 06/12/2025 at 03:22 PM EDT Sign off status: Pending * Provider: Keeley Betancourt M.D. Date: 0 02/15/2025 Generated for Printi milagros/Fabud/eTransmitting on: 0 06/12/2025 03:22 PM EDT History and Physical Notes * [...] Betancourt Cardiology, . Dr. Mik Abdi in [place] for PAD, carotid disease; dilated left atrium
--- OUTSIDE RECORDS SUMMARY | 2025-04-12 10:15 | XMS_ITS ---
Author Organization [facility] Address [address] [facility] [address] [place] [phone] Care Team Providers Care Automobile Parts Assembler Name Role Phone Keeley Betancourt Primary Care Provider [phone] Allergies Allergen (clinical drug ingredient) Drug/Non Drug [...] Status W/U Status Risk Notes Problem Atelectasis of both lungs (J98.11) Active confirmed Vital Signs Blood pressure systolic 120 mm Hg 04/12/20 25 Blood pressure diastolic 70 mm Hg 025 Height 63.50 in 04/12/2025 Weight 110.2 lbs 04/12/2025 BMI 19.21 kg/m2 04/12/2025 Encounters Encounter Location Date Provider Diagnosis [facility] [address] [place] [phone] 04/12/2025 R Luis A Betancourt Tobacco use [...] results, Reason: Provider Name:Keeley Luis A Patriciacharles et, 08/21/2025 09:00:00 AM, [address], [address], [place], [place], [phone], Progress Notes * NIHARIKA NARVAEZDOB:1950 (74 yo F)Acc No.[id number]:04/12/2025 Progress Notes Patient: NIHARIKA VILLARREAL Provider: Keeley Betancourt M.D. :1950 A ge:74 Y S ex:Female Date:04/12/2025 Address:[address] [place], [place] [address] Subjective: * Chief Complaints: * 1 . [...] * Hospitalization/Major Diagno stic Procedure: Iveth luisyaakov- [facility] in [place] 11/2014. * Family History: F [...] * Images: Billing Information: * Visit Code: 33061 Office Visit, Est Pt., Level 3. * Procedure Codes: G2211 Complex e/m visit add on. G8783 BP SCR PRFRM RCMDD DEFIND SCR INTVL. G8752 MOST RECENT SYSTOLIC BP < 140MM HG. G8754 MOST RECENT DIASTOLIC BP < 90MM HG. G9902 Pt scrn tbco and id as user. * Electronic signature of Keeley Betancourt MD on 06/12/2025 at 03:23 PM EDT Sign off status: Pending * Provider: Keeley Betancourt M.D. Date: 04/12/2025 Generated for Nithya linares/Lela/Aneesh on: 06/12/2025 03:23 PM EDT History and Physical Notes * Examination Category Sub-Category Detail Notes Category Not es General Examination Heart: RSR Lungs: Breath sounds are ge nerally diminished but otherwise clear. General Appearance: NAD
--- OUTSIDE RECORDS SUMMARY | 2025-05-07 14:05 | XMS_ITS ---
Author Organization [facility] Address [address] [place] [phone] Care Team Providers Care Welding Tester Name Role Phone Keeley Betancourt Primary Care Provider Reason For Referral Reason Lung mass on chest C T Diagnosis [address] (R 93.89) Referral Organization [facility] Referring Provider First Name Keeley Gunn Referring Provider Last Name Serafin Referring Provider Speciality Family Pra ctice Referred Organization [facility] Referred Provider Bartolome Brannon Referred Address [address] [place] [address],[place],[phone], Referred Provider Specialty Pulmonary Di seases General Notes Nanci James 2024 08:41:46 AM > faxed to [facility] PulmonologyErika Brynn 05/17/2025 03:40:56 PM > 05/15/2025 Referral Priority Routine REASON FOR VISIT abnormal LDCT Results Problems Problem Type SNOMED Code ICD Code Onset Dates Problem Status W/U Status Risk Notes Problem Abnormal chest CT (R93.89) Active confirmed Encounters Encounter Location Date Provider Diagnosis [facility] [facility] 36 [facility] [address] [address] [phone] 05/07/2025 Keeley Betancourt Abnormal chest CT R93.89 Assessments Encounter Date Diagnosis (ICD Code) Assessment Notes Treatment Notes Treatment Clinical Notes Section Notes 05/07/[address] (ICD-10 - R93.89) Plan Of Treatment Referrals Referral Date Details 05/08/2025 05/08/2025, Lung mas s on chest CT, Srinadh Annangi, [address], [place], [phone], Next Appt Details Provider Name:Keeley Giordano, 08/21/2025 09:00:00 AM, [address], [address], [place], [phone], Progress Notes * ANDREW NARVAEZKATYDOB:1950 (74 yo F)Acc No.[id number]:05/07/2025 Patient: NIHARIKA VILLARREAL :1950 A ge:74 Y S ex:Female Address:[address] [place] [address], [place] [address] Subjective: * Chief Complaints: * a bnormal LDCT Results * Medical History: * Surgical History: * Hospitalization/Major Diagno stic Procedure: * Medications: Objective: * Vitals: * Physical Examination: Assessment: * Assessment: 1. A bnormal chest CT - R93.89 (Primary) Plan: * Treatment: * Procedure Codes: * true * Date: Generated for Nithya linares/Lela/eTransmitting on: 0 06/12/2025 03:25 PM EDT Consultation Request Notes Referral Date Referring Provider Referred Provider Not mami 05/08/2025 Keeley Betancourt, Bartolome Lung m ass on chest CT
--- OUTSIDE RECORDS SUMMARY | 2025-06-12 15:22 | XMS_ITS | Encounter Summary ---
Author Organization [facility] ystem Address [address] [place] [address] Care Team Providers Care Wind Field Manager Name Role Phone Tariq Betancourt MD Primary Care Provider Encounter Details Date Type Department Care Team (Late st Contact Info) Description 04/18/2025 Telephone [facility] MEDICAL [facility] CARDIOLOGY [address] [facility] [address] [place] [address] José Miguel Abdi MD [address] [facility] [address] [place] [address] Social History Tobacco Use Types Packs/Day Years Used Date Smoking Tobacco: Every Day Cigarettes Alcohol Use Standard Drinks/Week Comments Not Currently 0 (1 standard drink = 0.6 oz pur e alcohol) AUDIT-C Answer Date Recorded Q1: How often do you have a drink containing alcohol? Never 03/16/2025 Q2: How many drinks containi ng alcohol do you have on a typical day when you are drinking? Patient does not drink Q3: How often do you have si x or more drinks on one occasion? Never 03/16/2025 Abuse Screen Answer Date Recorded Feels Unsafe at Home or Work/School no 03/16/2025 Feels Threatened by Someone no 07/2025 Does Anyone Try to Keep You From Having Contact with Others or Doing Things Outside Your Home? no 03/16/2025 Physical Signs of Abuse Present no 03/16/2025 Housing Stability Answer Date Recorded Current Living Arrangements home 07/2025 Potentially Unsafe Housing Conditions Not on shayy e 03/16/2025 Disabilities Answer Date Recorded Difficulty Concentrating, Remembering or Making Decisions no 03/16/2025 Difficulty Managing Errands Independently no 03/16/2025 Comments Unknown Sex and Gender Information Value Date Recorded Sex Assigned at Not on file Legal Sex Female 10:37 AM EDT Gender Identity Not on file Sexual Orientation Not on file documented as of this encounter Miscellaneous Notes * Telephone Encounter - Gayle Lopez RN - 04/19/2025 9:17 AM EDT Left VM advising of recommendations, letter faxed to Dr. Judd. * Telephone Encounter - Gayle Lopez RN - 04/18/2025 11:52 AM EDT Requesting pre op/procedure risk assessment for EGD with Dr. Judd. [facility] 03/16/25: Chronic occlusion RCA with 4+ [id number] collateral Long subtotally occluded mid LAD being fed via collaterals Otherwise no flow-limiting coronary artery disease LVEF 55% with apical akinesis FAX: [phone] documented in this encounter Plan of Treatment Upcoming Encounters Date Type Department Care Team (Late st Contact Info) Description 06/18/2025 10:00 AM EDT Office Visit [facility] CARDIOLOGY [address] [facility] [address] [place] [phone] José Miguel Abdi MD [address] [facility] [address] [place] [address] documented as of this encounter Visit Diagnoses Not on filedocumented in this encounter Care Teams Wind Field Manager Relationship Specialty Start Date End Date Tariq Betancourt MD [address] [facility] [address] [place] [address] PCP - General Family Medicine 03/06/25 documented as of this encounter
--- OUTSIDE RECORDS SUMMARY | 2025-06-12 15:22 | XMS_ITS | Encounter Summary ---
Author Organization [facility] ystem Address [address] [place] [address] Care Team Providers Care Beekeeper Name Role Phone Tariq Betancourt MD Primary Care Provider Encounter Details Date Type Department Care Team (Late st Contact Info) Description 06/12/2025 Telephone [facility] MEDICAL [facility] CARDIOLOGY [address] [facility] [address] [place] [address] Mia Patiño APRN [address] [facility] [address] [place] [address] Social History Tobacco Use Types Packs/Day Years [...] encounter Miscellaneous Notes * Telephone Encounter - Marcia Artis - 06/12/2025 11:23 AM EDT documented in this encounter Plan of Treatment Upcoming Encounters Date Type Department Care Team (Late st Contact Info) Description 06/18/2025 10:00 AM EDT Office Visit [facility] CARDIOLOGY [address] [facility] [address] [place] [address] José Miguel Abdi MD [address] [facility] [address] [place] [address] documented as of this encounter Visit Diagnoses Not on filedocumented in this encounter Care Teams Beekeeper Relationship Specialty Start Date End Date Tariq Betancourt MD [address] [facility] [address] [place] [address] PCP - General Family Medicine 03/06/25 documented as of this encounter
--- OUTSIDE RECORDS SUMMARY | 2025-06-12 15:23 | XMS_ITS | Patient Health Record ---
Author Organization [facility] Address [address] [facility] [address] [place] [id number] Care Team Providers Care Pricing Intern Name Role Phone Keeley Betancourt Primary Care Provider [phone] Allergies Allergen (clinical drug ingredient) Drug/Non Drug [...] - 400 CBC Venipuncture (in house) Reviewed date:02/20/2025 09:44:27 [...] Interpretation: Performing Lab: Notes/Report: Test performed by [facility] [address] , [address], [place] [address] Gamal Haywood MD, Hydraulics Engineer CLIA: [id number] Vitamin B12 608 522-5387 pg/mL P-Comprehensive Metabolic Pa yoseph (CMP) Reviewed date:02/20/2025 09:44:27 PM Interpretation: Performing Lab: Notes/Report: Test performed by [facility] [address] [place] [address] , [address], [place] [address] Gamal Haywood MD, Hydraulics Engineer CLIA: [id number] Sodium 137 135-145 mmol/L Potassium 3.7 3.5-5.3 [...] Interpretation: Performing Lab: Notes/Report: Test performed by [facility] [address] [place] [address] , [address], [place] [address] Gamal Haywood MD, Hydraulics Engineer CLIA: [id number] Iron 140 37-145 ug/dL P-Lipid Panel Reviewed date:02/20/2025 09:44:27 PM Interpretation: Performing Lab: Notes/Report: Test performed by [facility] [address] [place] [address] , [address], [place] [address] Gamal Haywood MD, Hydraulics Engineer DINA: [id number] Cholesterol 163 <200 mg/dL Triglycerides 106 <150 [...] Interpretation: Performing Lab: Notes/Report: Test performed by [facility] [address] , [address], [place] [address] Gamal Haywood MD, Hydraulics Engineer CLIA: [id number] TSH 2.17 0.43-5.25 mU/L P-Microalbumin/Creatinine, R andom Urine Sample Reviewed date:02/20/2025 09:44:27 PM Interpretation: Performing Lab: Notes/Report: Test performed by [facility] [address] , [address], [place] [address] Gamal Haywood MD, Hydraulics Engineer CLIA: [id number] Albumin/Creatinine Ratio, Urine 18 0-30 ug/mg Microalbumin, Urine, Random 1.4 Creatinine, Urine 77.8 CBC Venipuncture (in house) Reviewed date:08/28/2024 09:43:33 [...] Interpretation:304 Performing Lab: Notes/Report: Test performed by [facility] [address] [place] [address] , [address], [place] [address] Gamal Haywood MD, Hydraulics Engineer CLIA: [id number] Vitamin B12 614 558-3232 pg/mL P-Comprehensive Metabolic Pa yoseph (CMP) Reviewed date:08/28/2024 09:43:33 PM Interpretation:Na 131, cl 92, gluc 100 Performing Lab: Notes/Report: Test performed by [facility] [address] [place] [address] , [address], [place] [address] Gamal Haywood MD, Hydraulics Engineer CLIA: [id number] Sodium 131 135-145 mmol/L Potassium 4.0 3.5-5.3 [...] Interpretation:17 Performing Lab: Notes/Report: Test performed by [facility] [address] [place] [address] , [address], [place] [address] Gamal Haywood MD, Hydraulics Engineer CLIA: [id number] Iron 17 37-145 ug/dL P-Lipid Panel Reviewed date:08/28/2024 09:43:33 PM Interpretation:Normal Performing Lab: Notes/Report: Test performed by [facility] [address] [place] [address] , [address], [place] [address] Gamal Haywood MD, Hydraulics Engineer CLIA: [id number] Cholesterol 162 <200 mg/dL Triglycerides 142 <150 [...] Interpretation:118 Performing Lab: Notes/Report: Test performed by [facility] [address] [place] [address] , [address], [place] [address] Gamal Haywood MD, Hydraulics Engineer CLIA: [id number] Vitamin D 25-Hydroxy 118.0 30.0-100.0 ng/mL Interpretation [...] Negative, annual f/u result Negative, annual f/u Hemoccult- IFOBT (in house) Reviewed date:10/03/2024 02:55:40 PM Interpretation:Negative Performing Lab: Notes/Report: Negative results Neg CT Scan : Chest, low dose Reviewed date:05/10/2025 08:10:22 AM Interpretation:Abnormal Performing Lab: Notes/Report: Abnormal Reason For Referral Reason at [facility] Angelo khadra cowan for post op hip replacement rehab Diagnosis 1 S/P hip hemiarthropl asty (Z96.649) [facility] Referring Provider First Name Keeley Gunn Referring Provider Last Name [facility] Referring Provider [facility] Referred Provider Physical Therapy, . Referred Provider Specialty Physical The rapist General Notes Nanci James 06/21/20 24 9:22:13 AM > faxed to scheduling at [facility] Referral Priority Routine Reason skin lesions on face . 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 Referred Provider Specialty Dermatology General Notes Nanci James 024 1:54:17 PM > referral submitted via [facility] website, Nanci James 08/24/2024 2:58:20 PM > appt 08/25/2024 at 10:00am in [facility] Referral Priority Routine Reason Dr. José Miguel Reyes for PAD, carotid disease; dilated left atrium Diagnosis 1 PAD (peripheral beryl ry disease) (I73.9) [facility] Referring Provider First Name Keeley Gunn Referring Provider Last Name Serafin Referring Provider [facility]ice Referred Provider Cardiology, . Referred Provider Specialty Cardiovascul ar Disease General Notes Nanci James 2024 10:46:57 AM > faxed to [place] office as he does not have a [place] number Referral Priority Routine Reason Lung mass on chest C T Diagnosis [address] (R 93.89) [facility] Referring Provider First Name Keeley Gunn Referring Provider Last Name Serafin Referring Provider [facility] ctice Referred Organization [facility] Referred Provider Bartolome Brannon Referred Address [address] [place] [address] [id number], Referred Provider Specialty Pulmonary Di seases General Notes Nanci James 2024 08:41:46 AM > faxed to [facility] Pulmonology, Nanci James 05/17/2025 03:40:56 PM > 05/15/2025 Referral Priority Routine Medications Medication SIG (Take, [...] 1 tab(s) orally once a day Active Albuterol Sulfate HFA 108 (90 Base) MCG/ACT INHALE 2 PUFFS BY MOUTH EVERY 6 HOURS NEEDED; Duration: 25 Active traMADol HCl 50 MG 1-2 tab(s) [...] Status Risk Notes Problem Vitamin D deficiency (56454316) Vitamin D deficiency (E55.9) Active confirmed Problem Vitamin B12 deficiency (154404171) Vitamin B12 deficiency (E53.8) Active confirmed Problem Anemia (652440097) Anemia (D64.9) Active confirmed Problem Essential hypertension (21465241) Essential hypertension (I10) Active confirmed Problem Abnormal mammogram (346103510) Abnormal mammogram (R92.8) Active confirmed Problem Seasonal allergy (069679461) Seasonal allergies (J30.2) Active confirmed Problem Iron deficiency anemia (54153436) Iron deficiency anemia (D50.9) Active confirmed Problem Primary osteoarthritis (814343074) Primary osteoarthritis involving multiple joints (M15.0) Active confirmed Problem COPD - Chronic obstructive pulmonary disease (66241517) Chronic obstructive pulmonary disease, unspecified COPD type (J44.9) Active confirmed Problem Obstructive sleep apnea syndrome (23617130) FRANSISCO (obstructive sleep apnea) (G47.33) Active confirmed Problem Localized, primary osteoarthritis of the pelvic region and thigh (963839085) 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) Active confirmed Problem Tobacco user (394835227) Cigarette nicotine dependence without complication (F17.210) Active confirmed Problem Dyslipidemia (827352762) Dyslipidemia (E78.5) Active confirmed Problem Peripheral vascular disease (027679578) PAD (peripheral artery disease) (I73.9) Active confirmed Problem Tobacco use (777374504) Tobacco use disorder (F17.200) Active confirmed Problem Age-related osteoporosis (048588446) Osteoporosis without current pathological fracture, unspecified osteoporosis type (M81.0) Active confirmed Problem Osteoporosis (84564211) Osteoporosis, unspecified (M81.0) Active confirmed Problem Atelectasis (39713376) Atelectasis of both lungs (J98.11) Active confirmed Problem Ex-smoker (finding) (7064736) History of cigarette smoking (Z87.891) Active confirmed Problem Left carotid artery occlusion (404413071584803) Left carotid stenosis (I65.22) Active confirmed Problem Radiology result abnormal (417123358) Abnormal chest CT (R93.89) Active confirmed Problem S/P hip hemiarthroplasty (Z96.649) Active confirmed Vital Signs Heart Rate 75 /min 10/03/2024 Blood pressure diastolic 70 mm Hg 04/12/2025 Height 63.50 in 04/12/2025 Blood pressure systolic 120 mm Hg 04/12/2025 Weight 110.2 lbs 04/12/2025 BMI 19.21 kg/m2 04/12/2025 Encounters Encounter Location Date Provider Diagnosis [address] [id number] 06/20/2024 R Luis A Erwint S/P hip hemiarthropl asty Z96.649 and Hypoxemia R09.[address] [id number] 08/24/2024 R Luis A [place] Essential hypertensi on I10 ; Dyslipidemia E78.5 [...] L57.0 and Screening for breast cancer Z12.[address] [id number] 09/13/2024 R Luis A Betancourt Anemia D64.9 [facility] [address] [facility], [facility] [place] [id number] 10/03/2024 R Luis A Betancourt Iron deficiency anem ia D50.9 [facility] [address] [facility] [facility], [facility] [place] [id number] 02/15/2025 R Luis A Betancourt Adult general [...] in adult Z68.1 and Osteoporosis, unspecified M81.0 [facility] [address] [facility] [facility], [facility] [place] [id number] 04/12/2025 R Luis A Betancourt Tobacco use disorder F17.200 ; Chronic obstructive pulmonary disease, unspecified COPD type J44.9 ; Atelectasis of both lungs J98.11 and FRANSISCO (obstructive sleep apnea) G47.33 [facility] [address] [facility] [facility] [place] [id number] 06/21/2024 R Luis A Betancourt [facility] [address] [facility] [facility], [facility] [place] [id number] 08/28/2024 R Luis A Betancourt Vitamin D deficiency E55.9 [facility] [address] [facility] [facility] [place] [id number] 02/20/2025 R Luis A Betancourt [facility] [address] [facility] [facility] [place] [id number] 05/07/2025 R Luis A Betancourt Abnormal chest CT R9 3.89 Assessments Encounter Date Diagnosis (ICD Code) Assessment [...] 04/12/2025 Tobacco use disorder (ICD-10 - F17.200) 05/07/[address] (ICD-10 - R93.89) 02/15/2025 Dyslipidemia (ICD-10 - E78.5) 04/12/2025 Atelectasis [...] 02/15/2025 Vitamin D deficiency (ICD-10 - E55.9) 08/24/2024 History of cigarette smoking (ICD-10 - Z87.891) 02/15/2025 Tobacco use disorder (ICD-10 - F17.200) 08/24/2024 Anemia (ICD-10 - D64.9) 02/15/2025 Anemia [...] unspecified (ICD-10 - M81.0) Plan Of Treatment Next Appt Details Provider Name:Keeley Giordano, 08/21/2025 09:00:00 AM, [address], [address], [place] [id number], Insurance Providers Payer Name Payer Address Payer Phone Subscriber Number Group Number Insured Name Patient Relationship to Insured Coverage Start Date Coverage End Date MEDICARE PART B [address] [address] [place] [id number] [phone] [id number] NIHARIKA NARVAEZ [place] - [place] [id number] NIHARIKA NARVAEZ Self - patient is the [...] 45 pack year smoking history as of 2017 Osteoporosis ECHO 02/2023 - severely dilated left atri um Surgical History Surgery Date(Month/Year) ruptered disc/back surgery 1993 tubal 1977 carpal tunnel 2000 Colonoscopy/Dr. Garibay/polyp 09/2010 ORIF left femur fracture 10/2017 left hip replacement - Dr. Chung 04/2018 Stent placement both legs 03/2021 Cataract Surgery 05/2022 Right Hip Replacement Total 05/02/2024 Hospitalization History Reason Date(Month/Year) Bronchitis- [facility] [place] 11/2014
--- OUTSIDE RECORDS SUMMARY | 2025-06-12 15:23 | XMS_ITS | Clinical Summary ---
Author Organization [facility] Address [address] [place] [address] Care Team Providers Care Fire Sprinkler Inspector Name Role Phone Tariq Betancourt MD Primary Care Provider Allergies No known active allergies Medications amLODIPine (NORVASC) 10 MG tablet Take 1 tablet by mouth Daily. Active albuterol sulfate HFA 108 (90 Base) MCG/ACT inhaler Inhale 2 puffs Every 6 (Six) Hours As Needed. 5 Active alendronate (FOSAMAX) 70 MG tablet Take 1 tablet by mouth 1 (One) Time Per Week. 5 Active aspirin 81 MG EC tablet Take 1 tablet by mouth. Active atorvastatin (LIPITOR) 40 MG tablet Take 1 tablet by mouth. Active Benazepril HCl (LOTENSIN PO) Take 40 mg by mouth Daily. Active clopidogrel (PLAVIX) 75 MG tablet Take 1 tablet by mouth Daily. 5 Active DULoxetine (CYMBALTA) 60 MG capsule Take 1 capsule by mouth Daily. 5 Active FeroSul 325 (65 Fe) MG tablet Take 1 tablet by mouth Daily. 5 Active fluticasone (FLONASE) 50 MCG/ACT nasal spray Administer 2 sprays into the nostril(s) as directed by provider Daily. 5 Active furosemide (LASIX) 40 MG tablet Take 0.5 tablets by mouth Daily. 5 Active loratadine (CLARITIN) 10 MG tablet Take 1 tablet by mouth Daily. Active metoprolol succinate XL (TOPROL-XL) 100 MG 24 hr tablet Take 1 tablet by mouth Daily. Active Melatonin 3 MG capsule Take 1 capsule by mouth every night at bedtime. Active Calcium Citrate-Vitamin D3 (CITRACAL) 315-6.25 MG-MCG tablet tablet Take 1 tablet by mouth Daily. Active Active Problems Problem Noted Date Diagnosed Date Abnormal nuclear stress test 03/13/2025 Encounters Date Type Department Care Team Description 06/12/[address] [facility] [address] [facility] [address] [place] [address] Mia Patiño APRN 04/18/[address] [facility] [address] [facility] [address] [place] [address] José Miguel Abdi MD 04/09/2025 3:00 PM EDT - 04/09/2025 11:59 PM EDT Hospital Encounter [facility] NONINVASIVE LAB [address] [facility] 3rd [place] [address] José Miguel bAdi MD Dyspnea on exertion Discharge Disposition: Home or Self Care 04/09/2025 Travel 03/16/2025 6:45 AM EDT - 03/16/2025 7:45 AM EDT Surgery [facility] [place] [address] [place] [address] José Miguel Abdi MD Left Heart Cath [13188 (CPT )] 03/16/2025 6:23 AM EDT - 03/16/2025 11:42 AM EDT Hospital Encounter [facility] CV[facility] [address] [place] [address] José Miguel Abdi MD Systolic congestive heart failure, unspecified HF chronicity (Primary Dx); Abnormal nuclear stress test; Chronic obstructive pulmonary disease with acute exacerbation Discharge Disposition: Home or Self Care 03/16/2025 Travel 03/13/2025 Results Follow-Up [facility] CARDIOLOGY [address] [place] [address] José Miguel Abdi MD 03/12/2025 12:57 PM EDT - 03/12/2025 11:59 PM EDT Hospital Encounter [facility] NONINVASIVE LAB OUTPATIENT CENTER [address] [place] [address] Dyspnea on exertion; Claudication Discharge Disposition: Home or Self Care 03/12/2025 9:30 AM EDT - 03/12/2025 11:59 PM EDT Hospital Encounter [facility] CARDIOVASCULAR LAB [address] [place] [address] Discharge Disposition: Home or Self Care 03/12/2025 7:38 AM EDT - 03/12/2025 11:59 PM EDT Hospital Encounter [facility] CARDIOVASCULAR LAB [address] [place] [address] Dyspnea on exertion Discharge Disposition: Home or Self Care 03/12/2025 Travel from Last 3 Months Family History Medical History Relation Name Comments COPD Father Heart disease Father Heart disease Mother Relation Name Status Comments Father Mother Social History Tobacco Use Types Packs/Day Years Used Date Smoking Tobacco: Every Day Cigarettes Tobacco Cessation:Ready to Q uit: Not Asked; Counseling Given: Not Answered Alcohol Use Standard Drinks/Week Comments Not Currently [...] Sign Reading Time Taken Comments Blood Pressure 146/59 04/09/2025 3:19 PM EDT Pulse 58 03/16/2025 11:10 AM EDT Temperature 35.8 C (96.5 F) 03/16/2025 6:39 AM EDT Respiratory Rate 12 03/16/2025 8:33 AM EDT Oxygen Saturation 92% 03/16/2025 11:10 AM EDT Inhaled Oxygen Concentration - - Weight 50.8 kg (112 lb) 04/09/2025 3:19 PM EDT Height 157.5 cm (5' 2 ) 04/09/2025 3:19 PM EDT Body Mass Index 20.49 04/09/2025 3:19 PM EDT Plan of Treatment Upcoming Encounters Date Type Department Care Team (Late st Contact Info) Description 06/18/2025 10:00 AM EDT Office Visit [facility] CARDIOLOG[facility] [address] [place] [address] José Miguel Abdi MD [address] [place] [address] Health Maintenance Due Date Last Done Comments DXA SCAN 1950 TDAP/TD VACCINES (1 - Tdap) 1967 ZOSTER VACCINE (1 of 2) 1998 RSV Vaccine - Adults (1 - 1- dose 75+ series) 2023 ANNUAL WELLNESS VISIT 09/15/2024 HEPATITIS C SCREENING 09/15/2024 COVID-19 Vaccine (2023-2 5 season) 2025 10/03/2024, 08/25/2022, 06/18/2022, Additional history exists INFLUENZA VACCINE 08/08/2025 08/14/2022, , 08/23/2020, Additional history exists Pneumococcal Vaccine 50+ Completed 08/26/2023, 05/0 12/2016 Procedures Procedure Name Priority Date/Time Associated Diagnosis Comments ECHO COMPLETE W/ DOPPLER AND COLOR FLOW Routine 04/09/2025 4:25 PM EDT Dyspnea on exertion CARDIAC CATHETERIZATION Routine 03/16/20 8:30 AM EDT Abnormal nuclear stress test POCT CREATININE Routine 03/16/2025 6:58 AM EDT HEMOGLOBIN A1C STAT 03/16/2025 6:41 AM EDT LIPID PANEL STAT 03/16/2025 6:41 AM EDT COMPREHENSIVE METABOLIC PANEL STAT 03/16/2025 6:41 AM EDT CBC (NO DIFF) STAT 03/16/2025 6:41 AM EDT DOPPLER ANKLE BRACHIAL INDEX SINGLE LEVEL CAR Routine 03/12/2025 1:50 PM EDT Dyspnea on exertion Claudication STRESS TEST, REGADENOSON W MYOCARDIAL PERFUSION SPECT (MULTI STUDY) Routine 03/12/2025 10:06 AM EDT Dyspnea on exertion from Last 3 Months Results * ECHO COMPLETE W/ DOPPLER AND COLOR FLOW (04/09/2025 4:25 PM EDT) [facility] 2D AUTO EF 65.7 % LVIDd 2.6 cm LVIDs 1.90 cm IVSd 0.90 cm LVPWd 0.90 cm IVS/LVPW 1.00 cm LVOT area 2.8 cm2 LVOT diam 1.90 cm SVi (LVOT) 37.3 ml/m2 MV E max demetrio 63.0 cm/sec MV A max demetrio 68.2 cm/sec MV E/A 0.92 IVRT 78.0 ms LA ESV Index (BP) 32.3 ml/m2 Med Peak E' Demetrio 4.3 cm/sec Lat Peak E' Demetrio 6.6 cm/sec Avg E/e' ratio 11.56 SV(LVOT) 55.6 ml RV Base 3.5 cm RV Mid 2.7 cm RV Length 7.3 cm TAPSE (>1.6) 1.85 cm RV S' 12.0 cm/sec LA dimension (2D) 3.2 cm LV V1 max 85.9 cm/sec LV V1 max PG 3.0 mmHg LV V1 mean PG 1.60 mmHg LV V1 VTI 19.6 cm Ao pk demetrio 98.0 cm/sec Ao max PG 3.9 mmHg Ao mean PG 2.45 mmHg Ao V2 VTI 22.4 cm VERONIKA(I,D) 2.49 cm2 Dimensionless Index 0.88 (DI) MV max PG 2.7 mmHg MV mean PG 1.20 mmHg MV V2 VTI 23.1 cm MV P1/2t 67.0 msec MVA(P1/2t) 3.3 cm2 MVA(VTI) 2.41 cm2 MV dec slope 348.9 cm/sec2 PA V2 max 95.7 cm/sec Ao root diam 2.7 cm BH CV VAS BP RIGHT ARM 146/59 mmHg Echo EF Estimated 60.0 % Anatomical Region Laterality Modality Ultrasound Narrative 04/09/2025 5:22 PM EDT Left ventricular systolic function is normal. Estimated left ventricular EF = 60% No hemodynamically significant valvular heart disease Left Ventricle Left ventricular systolic function is normal. Estimated left ventricular EF = 60% Left ventricular ejection fraction appears to be 61 - 65%. Normal left ventricular cavity size and wall thickness noted. Right Ventricle Normal right ventricular cavity size and systolic function noted. Left Atrium Normal left atrial size and volume noted. Right Atrium Normal right atrial cavity size noted. The inferior vena cava is normally sized. Normal IVC inspiratory collapse of greater than 50% noted. Mitral Valve The mitral valve is grossly normal in structure. Trace to mild mitral valve regurgitation is present. No significant mitral valve stenosis is present. Tricuspid Valve The tricuspid valve is structurally normal with no stenosis present. Trace tricuspid valve regurgitation is present. Insufficient TR velocity profile to estimate the right ventricular systolic pressure. Aortic Valve The aortic valve is not well visualized. No significant aortic valve regurgitation is present. No aortic valve stenosis is present. Pulmonic Valve The pulmonic valve is not well visualized. There is no significant pulmonic valve regurgitation present. There is no pulmonic valve stenosis present. Pericardium The pericardium is normal. There is no evidence of pericardial effusion. . Greater Vessels No dilation of the aortic root is present. No dilation of the sinuses of Valsalva is present. José Miguel Abdi MD CV ECHO ORDERABLES Final Resul t * LEFT HEART CATH (03/16/2025 8:30 AM EDT) [facility] Signature Cath EF Estimated 60 % Anatomical Region Laterality Modality X-Ray Angiograph y Narrative 03/16/2025 8:44 AM EDT Chronic occlusion RCA with 4+ [id number] collateral Long subtotally occluded mid LAD being fed via collaterals Otherwise no flow-limiting coronary artery disease LVEF 55% with apical akinesis Procedure Narrative Left heart catheterization, ventriculography and coronary arteriography performed via the right radial artery using standard 6 Italian catheters. No complications. Hemostasis using a radial band. Coronary Findings Diagnostic Dominance: Right Left Main: The vessel was visualized by angiography, is moderate in size and is angiographically normal. Left Anterior Descending: Proximal diffuse mild 20-30% plaque which is moderately calcified. In the mid LAD, there is a COUNSELOR CAMP of the LAD, with filling of the mid and distal LAD via collaterals. The collaterals appear to be from a large septal branch, that supplies collaterals to the LAD distally as well as the right PDA. Left Circumflex: Moderate size nondominant vessel. Gives rise to 2 small obtuse marginal branches, and 2 moderate to large posterolateral branches. Diffuse mild luminal irregularities in these vessels only. The AV groove branch provides collaterals to the RPL. Right Coronary Artery: Severely diseased midportion, and occluded distally. The right PDA and right posterolateral are seen to fill via 4+ left to right collaterals Intervention No interventions have been documented. Left Ventricle The estimated ejection fraction is 60%. Hemodynamics LV pressures (S/D/E) : 120/14 mmHg AO pressures (S/D/M) : 120/54/ Wall Motion The following segments are akinetic: apical anterior and apical inferior. The following segments are hyperkinetic: mid anterior, mid inferior, basilar anterior and basilar inferior. José Miguel Abdi MD CV CARDIAC CATH ORDERABLES Fin al Result * POC Creatinine (03/16/2025 6:58 AM EDT) Creatinine 0.60 0.60 - 1.30 mg/dL 03/16/2025 7:19 AM EDT [facility] Comment:Serial Number: [id number] 9Operator: [id number] Blood 03/16/2025 6:58 AM EDT 03/16/2025 7:19 AM EDT José Miguel Abdi MD POINT OF CARE TEST ORDERABLES Final Result [facility]
[address] [place] [address], * (ABNORMAL) CBC (No Diff) (03/16/2025 6:41 AM EDT) WBC 8.54 3.40 - 10.80 10*3/mm3 03/16/2025 7:14 AM EDT [facility] RBC 4.03 3.77 - 5.28 10*6/mm3 03/16/2025 7:14 AM EDT [facility] Hemoglobin 13.3 12.0 - 15.9 g/dL 03/16/2025 7:14 AM EDT [facility] Hematocrit 41.0 34.0 - 46.6 % 03/16/2025 7:14 AM EDT [facility] MCV 101.7(H) 79.0 - 97.0 fL 03/16/2025 7:14 AM EDT [facility] MCH 33.0 26.6 - 33.0 pg 03/16/2025 7:14 AM EDT [facility] MCHC 32.4 31.5 - 35.7 g/dL 03/16/2025 7:14 AM EDT [facility] RDW 13.5 12.3 - 15.4 % 03/16/2025 7:14 AM EDT [facility] RDW-SD 51.6 37.0 - 54.0 fl 03/16/2025 7:[facility] MPV 9.3 6.0 - 12.0 fL 03/16/2025 7:14 AM EDT [facility] Platelets 261 140 - 450 10*3/mm3 03/16/2025 7:14 AM EDT [facility] Blood Line / Unknown 03/16/2025 6: 41 AM EDT 03/16/2025 7:00 AM EDT Mia Patiño APRN LAB BLOOD ORDERABLES Final Result Performing Organization Address [facility]/ZIP Co de Phone Number [facility]
[address] [place] [address], * Hemoglobin A1c (03/16/2025 6:41 AM EDT) Hemoglobin A1C 4.80 4.80 - 5.60 % 03/16/2025 9:28 AM EDT [facility] Blood Line / Unknown 03/16/2025 6: 41 AM EDT 03/16/2025 7:00 AM EDT Narrative [facility] - 03/16/2025 9:28 AM EDT Hemoglobin A1C Ranges: Increased Risk for Diabetes 5.7% to 6.4% Diabetes >= 6.5% Diabetic Goal < 7.0% us Mia Patiño APRN LAB BLOOD ORDERABLES Final Result Performing Organization Address City/[facility]/ZIP Co de Phone Number [facility]
[address] [place] [address], * (ABNORMAL) Lipid Panel (03/16/2025 6:41 AM EDT) Total Cholesterol 166 0 - 200 mg/dL 03/16/2025 8:00 AM EDT [facility] Triglycerides 108 0 - 150 mg/dL 03/16/2025 8:00 AM EDT [facility] HDL Cholesterol 67(H) 40 - 60 mg/dL 03/16/2025 8:00 AM EDT [facility] LDL Cholesterol 80 0 - 100 mg/dL 03/16/2025 8:00 AM EDT [facility] VLDL Cholesterol 19 5 - 40 mg/dL 03/16/2025 8:00 AM EDT [facility] LDL/HDL Ratio 1.16 03/16/2025 8:00 AM EDT [facility] Blood Line / Unknown 03/16/2025 6: 41 AM EDT 03/16/2025 7:00 AM EDT Narrative [facility] - 03/16/2025 8:00 AM EDT Cholesterol Reference Ranges (U.S. Department of Health and Human Services ATP III Classifications) Desirable <200 mg/dL Borderline High 200-239 mg/dL High Risk >240 mg/dL Triglyceride Reference Ranges (U.S. Department of Health and Human Services ATP III Classifications) Normal <150 mg/dL Borderline High 150-199 mg/dL High 200-499 mg/dL Very High >500 mg/dL HDL Reference Ranges (U.S. Department of Health and Human Services ATP III Classifications) Low <40 mg/dl (major risk factor for CHD) High >60 mg/dl ('negative' risk factor for CHD) LDL Reference Ranges (U.S. Department of Health and Human Services ATP III Classifications) Optimal <100 mg/dL Near Optimal 100-129 mg/dL Borderline High 130-159 mg/dL High 160-189 mg/dL Very High >189 mg/dL LDL is calculated using the NIH LDL-C calculation. Mia Patiño APRN LAB BLOOD ORDERABLES Final Result [facility]
[address] [place] [address], * (ABNORMAL) Comprehensive Metabolic Panel (03/16/2025 6:41 AM EDT) [facility] Signature Glucose 88 65 - 99 mg/dL 03/16/2025 8:00 AM EDT [facility] BUN 7(L) 8 - 23 mg/dL 03/16/2025 8:00 AM [facility] Creatinine 0.54(L) 0.57 - 1.00 mg/dL 03/16/2025 8:00 AM [facility] Sodium 134(L) 136 - 145 mmol/L 03/16/2025 8:00 AM [facility] Potassium 4.0 3.5 - 5.2 mmol/L 03/16/2025 8:00 AM [facility] Comment:Slight hemolysis det ected by analyzer. Result may be falsely elevated. Chloride 92(L) 98 - 107 mmol/L 03/16/2025 8:00 AM [facility] CO2 30.0(H) 22.0 - 29.0 mmol/L 03/16/2025 8:00 AM [facility] Calcium 9.6 8.6 - 10.5 mg/dL 03/16/2025 8:00 AM [facility] Total Protein 6.2 6.0 - 8.5 g/dL 03/16/2025 8:00 AM [facility] Albumin 4.2 3.5 - 5.2 g/dL 03/16/2025 8:00 AM [facility] ALT (SGPT) 12 1 - 33 U/L 03/16/2025 8:00 AM [facility] AST (SGOT) 20 1 - 32 U/L 03/16/2025 8:00 AM [facility] Alkaline Phosphatase 65 39 - 117 U/L 03/16/2025 8:00 AM [facility] Total Bilirubin 0.5 0.0 - 1.2 mg/dL 03/16/2025 8:00 AM [facility] Globulin 2.0 gm/dL 03/16/2025 8:00 AM [facility] Comment:Calculated Result A/G Ratio 2.1 g/dL 03/16/2025 8:00 AM [facility] BUN/Creatinine Ratio 13.0 7.0 - 25.0 03/16/2025 8:00 AM EDT [facility] Anion Gap 12.0 5.0 - 15.0 mmol/L 03/16/2025 8:00 AM EDT [facility] eGFR 95.6 >60.0 mL/min/1.7 3 03/16/2025 8:00 AM EDT [facility] Blood Line / Unknown 03/16/2025 6: 41 AM EDT 03/16/2025 7:00 AM EDT Narrative [facility] - 03/16/2025 8:00 AM EDT GFR Categories in Chronic Kidney Disease (CKD) GFR Category GFR (mL/min/1.73) Interpretation G1 90 or greater Normal or high (1) G2 60-89 Mild decrease (1) G3a 45-59 Mild to moderate decrease G3b 30-44 Moderate to severe decrease G4 15-29 Severe decrease G5 14 or less Kidney failure (1)In the absence of evidence of kidney disease, neither GFR category G1 or G2 fulfill the criteria for CKD. eGFR calculation 2020 CKD-EPI creatinine equation, which does not include race as a factor Mia Patiño APRN LAB BLOOD ORDERABLES Final Result [facility]
[address] [place] [address], * Doppler Ankle Brachial Index Single Level CAR (03/12/2025 1:50 PM EDT) Upper arterial right arm brachial sys max 144 Upper arterial left arm brachial sys max 146 RIGHT POST TIBIAL SYS MAX 74 LEFT POST TIBIAL SYS MAX 79 RIGHT DORSALIS PEDIS SYS MAX 75 LEFT DORSALIS PEDIS SYS MAX 87 RIGHT GREAT TOE SYS MAX 96 LEFT GREAT TOE SYS MAX 119 RIGHT MELLISA RATIO 0.51 LEFT MELLISA RATIO 0.6 RIGHT TBI RATIO 0.66 LEFT TBI RATIO 0.82 Anatomical Region Laterality Modality Ultrasound Narrative 03/12/2025 5:50 PM EDT Right Conclusion: The right MELLISA is moderately reduced. Left Conclusion: The left MELLISA is moderately reduced. Study Impression Right Conclusion: The right MELLISA is moderately reduced. Left Conclusion: The left MELLISA is moderately reduced. Study Findings Right Sided Findings: Right Posterior Tibial: The pulse is detected w/ Doppler. Monophasic, low resistive arterial flow noted. Right Dorsalis Pedis: The pulse is detected w/ Doppler. Monophasic, intermediate resistive arterial flow noted. Left Sided Findings: Left Posterior Tibial: The pulse is detected w/ Doppler. Monophasic, intermediate resistive arterial flow noted. Left Dorsalis Pedis: The pulse is detected w/ Doppler. Monophasic, intermediate resistive arterial flow noted. Thigh and calf pressures not obtained per protocol. . Additional Study Details The study is technically difficult for diagnosis. The quality of the study is limited due to machine error. No relevant cardiovascular history. No prior exam for comparison. José Miguel Abdi MD CV VASCULAR ORDERABLES Final R esult * STRESS TEST, REGADENOSON W MYOCARDIAL PERFUSION SPECT (MULTI STUDY) (03/12/2025 10:06 AM EDT) Pathologist [facility] CV STRESS PROTOCOL 1 Pharmacologic Stage 1 1.0 Duration Min Stage 1 1 Duration Sec Stage 1 10 Stress Dose Regadenoson Stage 1 0.40 Stress Comments Stage 1 10 sec bolus injection Stage 2 2.0 Duration Min Stage 2 1 Duration Sec Stage 2 0 Stage 3 3.0 Duration Min Stage 3 1 Duration Sec Stage 3 0 Stage 4 4.0 Duration Min Stage 4 1 Duration Sec Stage 4 0 Target HR (85%) 122 bpm Max. Pred. HR (100%) 144 bpm Exercise duration (min) 4 min Exercise duration (sec) 0 sec Estimated workload 1.0 METS HR Stage 1 80 O2 Stage 1 87 HR Stage 2 89 BP Stage 2 144/64 O2 Stage 2 94 HR Stage 3 88 O2 Stage 3 96 HR Stage 4 85 BP Stage 4 144/62 O2 Stage 4 96 Baseline HR 74 bpm Baseline BP 158/58 mmHg O2 sat rest 94 % Peak HR 90 bpm Peak BP 144/64 mmHg O2 sat peak 96 % Recovery HR 81 bpm Recovery BP 152/62 mmHg Recovery O2 95 % Percent Max Pred HR 62.50 % Percent Target HR 74 % CV REST NUCLEAR ISOTOPE DOSE 9.6 mCi CV STRESS NUCLEAR ISOTOPE DOSE 33.0 mCi Nuc Stress EF 68 % Anatomical Region Laterality Modality Nuclear Medicine Narrative 03/12/2025 6:03 PM EDT Myocardial perfusion imaging indicates a located in the apex with no significant ischemia noted. Left ventricular ejection fraction is normal (Calculated EF = 68%). Study Impression Myocardial perfusion imaging indicates a located in the apex with no significant ischemia noted. Rest Perfusion Defect 1 There is a defect with severe reduction in uptake present in the apical anterior wall, apical inferior wall and apex. Stress Perfusion Defect 1 There is a defect of severe severity present in the apical anterior wall, apical inferior wall and apex. Nuclear Study Description A 1-day rest/stress protocol myocardial perfusion imaging study was performed. A 22 G peripheral IV was started in the right antecubital fossa. While at rest, the patient was injected intravenously with 9.6 mCi of technetium sestamibi at 07:50 EDT. Rest imaging was performed approximately 60 minutes after the resting injection. Regadenoson (0.4 mg / 5 mL) was given intravenously over approximately 10 seconds followed by 5 mL flush of saline according to protocol. While at peak stress, the patient was injected intravenously with 33.0 mCi of technetium sestamibi at 09:25 EDT. Stress imaging was performed approximately 45 minutes after the injection. The total amount of radiation received in the study is about 12.84 mSv. Rest ECG Baseline ECG of normal sinus rhythm noted at rest. PVCs noted. Stress ECG Stress ECG of normal sinus rhythm noted. There was no ST segment deviation noted during stress. There were no arrhythmias during stress. Stress ECG was interpretable. Ventricle Size / Description Left ventricular ejection fraction is normal (Calculated EF = 68%). Normal LV wall motion noted. Stress Description A pharmacological stress test was performed using regadenoson without low-level exercise. The patient reached the end of the protocol. The patient reported dizziness and shortness of breath during the stress test. Recovery ECG During recovery, the patient complained of no significant symptoms following stress. Sinus rhythm was noted during recovery. There were no arrhythmias during recovery. Test Remote Encoding Operations Supervisor ECG [place] José Miguel Abdi MD CV STRESS ORDERABLES Final Res ult from Last 3 Months Insurance [place]ICARE [place] [id number] Care Teams Fire Sprinkler Inspector Relationship Specialty Start Date End Date Tariq Betancourt MD [address] [facility] [address] [place] [address] PCP - General Family Medicine 03/06/25
--- OUTSIDE RECORDS SUMMARY | 2025-06-12 15:23 | XMS_ITS | Clinical Summary ---
Author Organization [facility] Address [address] [place] [address] Care Team Providers Care Information Technology Technician Name Role Phone Tariq Betancourt MD Primary Care Provider [phone] Stan Leroy MD Unavailable [phone] Allergies No known active allergies Medications [...] Screening 1950 [facility]-Medicare Annual Wellness (AWV) 1950 [facility]-/Child/Adol SDOH Screenings 1948 [facility]- SDOH Screenings 1966 [facility]-Adult SDOH Screenings 1966 [facility]-DTaP,Tdap,and Td Vaccines (1 - Tdap) 1967 [facility]-Zoster Vaccines (1 of 2) 1998 [facility]-RSV Vaccine: 60+ Years or (1 - 1-dose 75+ series) 2023 [id number] Vaccine ( - 2023- season) 2024 08/25/2022, 06/18/2022, 09/11/2021, Additional history exists [facility]-Influenza Vaccine (#1) 07/09/202508/14, 08/15/2021, 08/23/2020, Additional history exists [facility]-Pneumococcal Vaccine: [...] age to complete this topic Insurance [facility]ICARE [facility] [id number] Care Teams Information Technology Technician Relationship Specialty Start Date End Date Tariq Betancourt MD [address] [place] [address] PCP - General 03/21/21 Stan Leroy MD [address] [place] [address] Medical Oncologist Hematology and Oncology 04/10/24 BAYLEE Henao [facility] [place] [address] Referring Physician Orthopaedic Surgery 04/07/24
--- OUTSIDE RECORDS SUMMARY | 2025-06-12 15:25 | XMS_ITS | Referral Summary ---
Author Organization [employer] ([place], [place], [place], [place]) Address [address] [place] [address] Care Team Providers Care Acquisition Consultant Name Role Phone Ezequiel Houston MD Primary Care Provider Allergies No known active allergies Medications benazepriL [...] the past 12 months, has t he [employer], gas, oil, or water [employer] threatened to shut off services in your [...] your living situation today? I have a [facility] place to live 05/02/2024 Think about [...] Do you speak a language other than [place] at [facility]? No 05/02/2024 Do you want help with school or training? For example, starting or completing job training or getting a high school diploma, GED or equivalent. No 05/02/2024 Physical Activity Answer Date Recorded Number of minutes of exercise per week 60 05/02/2024 Self Management Answer Date Recorded Because of a physical, [...] you used [place] legal drugs? Never 05/02/2024 Mental Health Answer Date Recorded Calculation of above two rows 1 Comments Unknown Sex and Gender Information Value [...] Plan of Treatment Not on file Insurance [employer]OHRA F[employer]ENTES [id number] MEDICARE PART A B Advance Directives For more information, please contact: [phone] * Full Code (Latest Code Status on File) Date Activated Date Inactivated Comments 05/02/2024 8:35 PM 05/03/2024 7:01 PM -Attempt Res uscitation if person has no pulse and is not breathing. -If no pulse or not breathing attempt CPR/CODE. -Call Rapid Response if patient is in distress. Care Teams Acquisition Consultant Relationship Specialty Start Date End Date Ezequiel Houston MD PCP - General Orthopedic Surgery 05/02/24
--- NOTE | 2025-06-12 15:30 | CT_ITS ---
FINAL REPORT TECHNIQUE: 1.25 thin section axial images were obtained through the chest without contrast. Sagittal and coronal reformatted images were obtained and reviewed. This study was performed with techniques to keep radiation doses as low as reasonably achievable, (ALARA). Individualized dose reduction techniques using automated exposure control or adjustment of mA and/or kV according to the patient's size were employed. CLINICAL HISTORY: Pre navigational bronch imaging COMPARISON: 05/04/2025 FINDINGS: There is dense vascular calcification of the aortic arch. Calcified right paratracheal lymph nodes are identified. There is dense coronary artery calcification. The heart size is normal. There is no pericardial or pleural effusion. There are moderate changes of the central lobular emphysema. There is a lobular bilobed mass in the medial left upper lobe measuring 2.6 x 2.6 cm which appears larger than previous. The medial portion of the mass contacts the anterior mediastinum. Finding is best seen on image 191 of series 2. Limited images of the upper abdomen reveal calcified granulomas in the spleen. There is moderate vascular calcification of the abdominal aorta. 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 Reviewed, Interpreted and Dictated by Tarik Lagos MD Transcribed by Chika Kebede Authenticated and [facility]
== END 2025-06-12 23:59 | disposition home or self-care (01) ==
LOC: RAD 15:20
PROVIDERS: PCP Family Medicine; Visit Provider Internal Medicine Pulmonary Disease
DX: R91.1 Solitary pulmonary nodule (principal); R91.8 Other nonspecific abnormal finding of lung field
CPT/HCPCS: 71250

== ENCOUNTER 2025-06-13 12:15 | Outpatient (CLI) | payer MEDICARE, OTHER, SELFPAY ==
--- OUTSIDE RECORDS SUMMARY | 2025-02-15 05:15 | XMS_ITS ---
Author Organization [facility] Address [address] [facility] [address] [place] [phone] Care Team Providers Care Ski Patrol Name Role Phone Keeley Betancourt Primary Care [...] Interpretation: Performing Lab: Notes/Report: Test performed by [employer] [address] [place] [address] , [address], [place] [address] Gamal Haywood MD, Service Rig Operator CLIA: [id number] Vitamin B12 743 776-3542 pg/mL P-Comprehensive Metabolic Pa yoseph (CMP) Reviewed date:02/20/2025 09:44:27 PM Interpretation: Performing Lab: Notes/Report: Test performed by [employer] [address] [place] [address] , [address], [place] [address] Gamal Haywood MD, Service Rig Operator CLIA: [id number] Sodium 137 135-145 mmol/L Potassium 3.7 3.5-5.3 [...] Interpretation: Performing Lab: Notes/Report: Test performed by [employer] [address] [place] [address] , [place] [id number] Gamal Haywood MD, Service Rig Operator CLIA: [id number] Iron 140 37-145 ug/dL P-Lipid Panel Reviewed date:02/20/2025 09:44:27 PM Interpretation: Performing Lab: Notes/Report: Test performed by [employer] [address] [place] [address] , [address], [place] [address] Gamal Haywood MD, Service Rig Operator CLIA: [id number] Cholesterol 163 <200 mg/dL Triglycerides 106 <150 [...] Interpretation: Performing Lab: Notes/Report: Test performed by [employer] [address] [facility] [address], [place] [address] Gamal Haywood MD, Service Rig Operator CLIA: [id number] TSH 2.17 0.43-5.25 mU/L P-Microalbumin/Creatinine, R andom Urine Sample Reviewed date:02/20/2025 09:44:27 PM Interpretation: Performing Lab: Notes/Report: Test performed by [employer] [address] [facility] , [address], [place] [address] Gamal Haywood MD, Service Rig Operator CLIA: [id number] Albumin/Creatinine Ratio, Urine 18 0-30 ug/m g Microalbumin, Urine, Random 1.4 Creatinine, Urine 77.8 Reason For Referral Reason Dr. José Miguel [place] for PAD, carotid disease; dilated left atrium Diagnosis 1 PAD (peripheral beryl ry disease) (I73.9) [facility] Referring Provider First Name Keeley Gunn Referring Provider Last Name Serafin Referring Provider [facility] Referred Provider Cardiology, . Referred Provider Specialty Cardiovascul ar Disease General Notes Nanci James 2024 10:46:57 AM > faxed to [place] office as he does not have a [place] number Referral Priority Routine REASON FOR VISIT [...] Status Risk Notes Problem Vitamin B12 deficiency (164841458) Vitamin B12 deficiency (E53.8) Active confirmed Problem Osteoporosis, unspecified (M81.0) Active confirmed Vital Signs Blood pressure systolic 120 mm Hg 02/16/20 25 Blood pressure diastolic 60 mm Hg 025 Height 63.50 in 02/15/2025 Weight 110.4 lbs 02/15/2025 BMI 19.25 kg/m2 02/15/2025 Encounters Encounter Location Date Provider Diagnosis [facility] [address] [facility] [address] [place], [place] [phone] 02/15/2025 R Luis A Betancourt Adult general [...] Details 02/16/2025 02/16/2025, Dr. Guera Abdi in [place] for PAD, carotid disease; dilated left atrium , . Cardiology Next Appt Details Follow Up: 6 Months, Reason: Provider Name:Keeley Giordano, 08/21/2025 09:00:00 AM, [address] [facility], [address] , [place], [place], [id number], Progress Notes * NIHARIKA NARVAEZDOB:1950 (74 yo F)Acc No.[id number]:02/15/2025 Annual Wellness Visit Patient: Chery VELANDREW REBOLLEDOET Provider: Keeley Betancourt M.D. :1950 A ge:74 Y S ex:Female Date:02/15/2025 Address:[address] [place] [address], [place] [id number] Subjective: * Chief Complaints: * 1 . 6 months and AWV. * HPI: H PI: Patient is here today for a scheduled 6 month c heck up and a Medicare Annual Wellness Visit. Pt is fasting. C ardiology: She is just returned from wintering in [place]. She reports having some intermittent swelling in her feet and ankles while in [place]. She also complains of some exertional dyspnea. [...] * Hospitalization/Major Diagno stic Procedure: Iveth carrion- [facility] in [place] 11/2014. * Family History: F ather: , [...] Cardiology??Cardiovascular Disease ?Reason:Dr. José Miguel Abdi in [place] for PAD, carotid disease; dilated left atrium [...] AM)* Value Reference Range V itamin B12 989 130-5238 - pg/mL * Keeley Betancourt 02/20/2025 09:44:09 [...] OF ACTIVITY ASSESS, 4040F PNEUMOC IMM ORDER/ADMIN, 64814 CBC WITH AUTO DIFF, 1125F AMNT PAIN [...] * Images: Billing Information: * Visit Code: 07945 Office Visit, Est Pt., Level 3. Modifiers: 25 * Procedure Codes: G0439 ANNUAL WELLNESS VST; PPS SUBSQT VST. G2211 Complex e/m visit add on. G0444 ANNUAL DEPRESSION SCREENING 15 MIN. 1090F PRES/ABSN URINE INCON ASSESS. 3288F FALL RISK ASSESSMENT DOCD. 1170F FXNL STATUS ASSESSED. 1159F MED LIST DOCD IN RCRD. 1003F LEVEL OF ACTIVITY ASSESS. 4040F PNEUMOC IMM ORDER/ADMIN. 32400 CBC WITH AUTO DIFF. 1125F AMNT PAIN NOTED PAIN PRSNT. G8510 NEG SCR Depression PT NOT ELIG F/U/PLN DOC. 3074F SYST BP LT 130 MM HG. 3078F DIAST BP < 80 MM HG. * Electronic signature of Keeley Betancourt MD on 06/13/2025 at 07:18 AM EDT Sign off status: Pending * Provider: Keeley Betancourt M.D. Date: 0 02/15/2025 Generated for Print[employer] milagros/Fabud/eTransmitting on: 0 06/13/2025 07:18 AM EDT History and Physical Notes * HPI [...] Betancourt Cardiology, . Dr. Mik Abdi in [place] for PAD, carotid disease; dilated left atrium
--- OUTSIDE RECORDS SUMMARY | 2025-04-12 10:15 | XMS_ITS ---
Author Organization [facility] Address [address] [facility] [address] [place] [phone] Care Team Providers Care Hot Header Operator Name Role Phone Keeley Betancourt Primary [...] 04/12/2025 Encounters Encounter Location Date Provider Diagnosis [facility] [address] [place] [phone] 04/12/2025 R Luis A Betancourt Tobacco use [...] [address], [address], [place], [place], [phone], Progress Notes * NIHARIKA NARVAEZDOB:1950 (74 yo F)Acc No.[id number]:04/12/2025 Progress Notes Patient: NIHARIKA VILLARREAL Provider: Keeley Betancourt M.D. :1950 A ge:74 Y S ex:Female Date:04/12/2025 Address:[address] [place], [place] [phone] Subjective: * Chief Complaints: * 1 . [...] * Hospitalization/Major Diagno stic Procedure: Iveth luisyaakov- [facility] in [place] 11/2014. * Family [...] * Images: Billing Information: * Visit Code: 93378 Office Visit, Est Pt., Level 3. * [...] Date: 04/12/2025 Generated for Nithya linares/Lela/Aneesh on: 0 06/13/2025 07:18 AM EDT History and Physical Notes * Examination Category Sub-Category Detail Notes Category Not es General Examination Heart: RSR Lungs: Breath sounds are ge nerally diminished but otherwise clear. General Appearance: NAD
--- OUTSIDE RECORDS SUMMARY | 2025-05-07 14:05 | XMS_ITS ---
Author Organization [facility] Address [address] [place] [address] [address] [phone] Care Team Providers Care Uplands Division Director Name Role Phone Keeley Betancourt Primary Care Provider [phone] Reason For Referral Reason Lung mass on chest C T Diagnosis [address] (R 93.89) Referral Organization Jac[facility]ie Referring Provider First Name Keeley Gunn Referring Provider Last Name Serafin Referring Provider Speciality Family Pra ctice Referred Organization [facility] OP Referred Provider Bartolome Brannon Referred Address [address] [place] [address],[place],[phone], Referred Provider Specialty Pulmonary Di seases General Notes Nanci James 2024 08:41:46 AM > faxed to [facility] PulmonologyErika Brynn 05/17/2025 03:40:56 PM > 05/15/2025 Referral Priority Routine REASON FOR VISIT abnormal LDCT Results Problems Problem Type SNOMED Code ICD Code Onset Dates Problem Status W/U Status Risk Notes Problem Radiology result abnormal ([id number]) Abnormal chest CT (R93.89) Active confirmed Encounters Encounter Location Date Provider Diagnosis [facility] [address] [facility] 36 [facility] [address] [phone] 05/07/2025 Keeley Betancourt Abnormal chest CT R93.89 Assessments Encounter Date Diagnosis (ICD Code) Assessment Notes Treatment Notes Treatment Clinical Notes Section Notes 05/07/[address] (ICD-10 - R93.89) Plan Of Treatment Referrals Referral Date Details 05/08/2025 05/08/2025, Lung mas s on chest CT, Bartolome Brannon, [address], [place], [place], [phone], Next Appt Details Provider Name:Keeley Giordano, 08/21/2025 09:00:00 AM, [address], [address], [place], [place], [phone], Progress Notes * SOLANGE ANDREWKATYDOB:1950 (74 yo F)Acc No.[id number]:05/07/2025 Patient: NIHARIKA VILLARREAL :1950 A ge:74 Y S ex:Female Address:[address] [place] [address], [place] [address] Subjective: * Chief Complaints: * a bnormal LDCT Results * Medical History: * Surgical History: * Hospitalization/Major Diagno stic Procedure: * Medications: Objective: * Vitals: * Physical Examination: Assessment: * Assessment: 1. A bnormal chest CT - R93.89 (Primary) Plan: * Treatment: * Procedure Codes: * true * Date: Generated for Nithya linares/Lela/Jackiitting on: 0 06/13/2025 07:18 AM EDT Consultation Request Notes Referral Date Referring Provider Referred Provider Not es 05/08/2025 Keeley Betancourt, [facility] Lung m ass on chest CT
[2025-06-13 10:59] VITALS: BMI 19.7
--- OUTSIDE RECORDS SUMMARY | 2025-06-13 12:18 | XMS_ITS | Encounter Summary ---
Author Organization [facility] ystem Address [address] [place] [address] Care Team Providers Care County Agricultural Agent Name Role Phone Tariq Betancourt MD Primary Care Provider Encounter Details Date Type Department Care Team (Late st Contact Info) Description 04/18/2025 Telephone [facility] MED[facility] CARDIOLOGY [address] [facility] [address] [place] [address] José Miguel Abdi MD [address] [facility] [address] [place] [address] Social History Tobacco Use Types Packs/Day Years [...] risk assessment for EGD with Dr. Judd. [facility] 03/16/25: Chronic occlusion RCA with 4+ [id number] collateral Long subtotally occluded mid LAD being fed via collaterals Otherwise no flow-limiting coronary artery disease LVEF 55% with apical akinesis FAX: [phone] documented in this encounter Plan of Treatment Upcoming Encounters Date Type Department Care Team (Late st Contact Info) Description 06/18/2025 10:00 AM EDT Office Visit [facility] CARDIOLOGY [address] [facility] [address] [place] [address] José Miguel Abdi MD [address] [facility] [address] [place] [address] documented as of this encounter Visit Diagnoses Not on filedocumented in this encounter Care Teams County Agricultural Agent Relationship Specialty Start Date End Date Tariq Betancourt MD [address] [facility] [address] [place] [address] PCP - General Family Medicine 03/06/25 documented as of this encounter
--- OUTSIDE RECORDS SUMMARY | 2025-06-13 12:18 | XMS_ITS | Encounter Summary ---
Author Organization [facility] ystem Address [address] [place] [address] Care Team Providers Care Tosser Name Role Phone Tariq Betancourt MD Primary Care Provider Encounter Details Date Type Department Care Team (Late st Contact Info) Description 06/12/2025 Telephone [facility] [address] [facility] [address] [place] [address] Mia Patiño APRN [address] [facility] [address] [place] [address] Social History Tobacco Use Types Packs/Day Years [...] Description 06/18/2025 10:00 AM EDT Office Visit [facility] CARDIOLOGY [address] [facility] [address] [place] [address] José Miguel Abdi MD [address] [facility] [address] [place] [address] documented as of this encounter Visit Diagnoses Not on filedocumented in this encounter Care Teams Tosser Relationship Specialty Start Date End Date Tariq Betancourt MD [address] [facility] [address] [place] [address] PCP - General Family Medicine 03/06/25 documented as of this encounter
--- OUTSIDE RECORDS SUMMARY | 2025-06-13 12:19 | XMS_ITS | Clinical Summary ---
Author Organization [facility] Address [address] [place] [address] Care Team Providers Care Department Chairperson Name Role Phone Tariq Betancourt MD Primary [...] Type Department Care Team Description 06/12/2025 Telephone [facility] CARDIOLOGY [address] [facility] [address] [place] [address] Mia Patiño APRN 04/18/2025 Telephone [facility] CARDIOLOGY [address] [facility] [address] [place] [address] José Miguel Abdi MD 04/09/2025 3:00 PM EDT - 04/09/2025 11:59 PM EDT Hospital Encounter [facility] NONINVASIVE LAB [address] [facility] 3[address] [place] [address] José Miguel Abdi MD Dyspnea on exertion Discharge Disposition: Home or Self Care 04/09/2025 Travel 03/16/2025 6:45 AM EDT - 03/16/2025 7:45 AM EDT Surgery [facility] SHINE WORKER [address] [place] [address] José Miguel Abdi MD Left Heart Cath [60098 (CPT )] 03/16/2025 6:23 AM EDT - 03/16/2025 11:42 AM EDT Hospital Encounter [facility] CVOU [address] [place] [address] José Miguel bAdi MD Systolic congestive heart failure, unspecified HF chronicity (Primary Dx); Abnormal nuclear stress test; Chronic obstructive pulmonary disease with acute exacerbation Discharge Disposition: Home or Self Care 03/16/2025 Travel 03/13/2025 Results Follow-Up [facility] CARDIOLOGY [address] [place] [address] José Miguel Abdi MD from Last 3 Months Family History Medical [...] Encounters Date Type Department Care Team (Late Contact Info) Description 06/18/2025 10:00 AM EDT Office Visit [facility] CARDIOLOGY [address] [place] [address] José Miguel Abdi MD [address] [place] [address] Health Maintenance Due Date Last [...] history exists Pneumococcal Vaccine 50+ Completed 08/26/2023, 12/2016 Procedures Procedure Name Priority Date/Time Associated [...] (NO DIFF) STAT 03/16/2025 6:41 AM EDT from Last 3 Months Results * ECHO COMPLETE W/ DOPPLER AND COLOR FLOW (04/09/2025 4:25 PM EDT) [facility] Signature 2D AUTO EF 65.7 % LVIDd 2.6 cm LVIDs 1.90 cm IVSd 0.90 cm LVPWd 0.90 cm IVS/LVPW 1.00 cm LVOT area 2.8 cm2 LVOT diam 1.90 cm SVi (LVOT) 37.3 ml/m2 MV E max demetiro 63.0 cm/sec MV A max demetrio 68.2 [...] of the sinuses of Valsalva is present. us José Miguel Abdi MD CV ECHO ORDERABLES Final Resul t * LEFT HEART CATH (03/16/2025 8:30 AM EDT) Cath EF Estimated 60 % Anatomical Region Laterality Modality X-Ray Angiograph y Narrative 03/16/2025 8:44 AM EDT Chronic occlusion RCA with 4+ [id number]-[id number] collateral Long subtotally occluded mid LAD being fed via collaterals Otherwise no flow-limiting coronary artery disease LVEF 55% with apical akinesis Procedure Narrative Left heart catheterization, ventriculography and coronary arteriography performed via the right radial artery using standard 6 English catheters. No complications. Hemostasis using a radial band. Coronary Findings Diagnostic Dominance: Right Left Main: The vessel was visualized by angiography, is moderate in size and is angiographically normal. Left Anterior Descending: Proximal diffuse mild 20-30% plaque which is moderately calcified. In the mid LAD, there is a NET SQL DEVELOPER of the LAD, with filling of the [...] mid inferior, basilar anterior and basilar inferior. us José Miguel Abdi MD CV CARDIAC CATH ORDERABLES Fin al Result * POC Creatinine (03/16/2025 6:58 AM EDT) Creatinine 0.60 0.60 - 1.30 mg/dL 03/16/2025 7:19 AM EDT [facility] Comment:Serial Number: [id number] 9Operator: [id number] Blood 03/16/2025 6:58 AM EDT 03/16/2025 7:19 AM EDT us José Miguel Abdi MD POINT OF CARE TEST ORDERABLES Final Result [facility]
[address] [place] [address], * (ABNORMAL) CBC (No Diff) (03/16/2025 6:41 AM EDT) WBC 8.54 3.40 - 10.80 10*3/mm3 03/16/2025 7:14 AM EDT [facility] RBC 4.03 3.77 - 5.28 10*6/mm3 03/16/2025 7:14 AM EDT [facility] Hemoglobin 13.3 12.0 - 15.9 g/dL 03/16/2025 7:14 AM EDT [facility] Hematocrit 41.0 34.0 - 46.6 % 03/16/2025 7:14 AM EDT [facility] MCV 101.7(H) 79.0 - 97.0 fL 03/16/2025 7:14 AM EDT [facility] MCH 33.0 26.6 - 33.0 pg 03/16/2025 7:14 AM EDT [facility] MCHC 32.4 31.5 - 35.7 g/dL 03/16/2025 7:14 AM EDT [facility] RDW 13.5 12.3 - 15.4 % 03/16/2025 7:14 AM EDT [facility] RDW-SD 51.6 37.0 - 54.0 fl 03/16/2025 7:14 AM EDT [facility] MPV 9.3 6.0 - 12.0 fL 03/16/2025 7:14 AM EDT [facility] Platelets 261 140 - 450 10*3/mm3 03/16/2025 7:14 AM EDT [facility] Blood Line / Unknown 03/16/2025 6: 41 AM EDT 03/16/2025 7:00 AM EDT Mia Patiño APRN LAB BLOOD ORDERABLES Final Result [facility]
[address] [place] [address], * Hemoglobin A1c (03/16/2025 6:41 AM EDT) Hemoglobin A1C 4.80 4.80 - 5.60 % 03/16/2025 9:28 AM EDT [facility] Blood Line / Unknown 03/16/2025 6: 41 AM EDT 03/16/2025 7:00 AM EDT Narrative [facility] - 03/16/2025 9:28 AM EDT Hemoglobin A1C Ranges: Increased Risk for Diabetes 5.7% to 6.4% Diabetes >= 6.5% Diabetic Goal < 7.0% Mia Patiño APRN LAB BLOOD ORDERABLES Final Result [facility]
[address] [place] [address], * (ABNORMAL) Lipid Panel (03/16/2025 6:41 AM EDT) Total Cholesterol 166 0 - 200 mg/dL 03/16/2025 8:00 AM EDT [facility] Triglycerides 108 0 - 150 mg/dL 03/16/2025 8:00 AM EDT [facility] HDL Cholesterol 67(H) 40 - 60 mg/dL 03/16/2025 8:00 AM EDT [facility] LDL Cholesterol 80 0 - 100 mg/dL 03/16/2025 8:00 AM EDT [facility] VLDL Cholesterol 19 5 - 40 mg/dL 03/16/2025 8:00 AM EDT [facility] LDL/HDL Ratio 1.16 03/16/2025 8:00 AM EDT [facility] Blood Line / Unknown 03/16/2025 6: 41 AM EDT 03/16/2025 7:00 AM EDT Narrative [facility] - 03/16/2025 8:00 AM EDT [...] is calculated using the NIH LDL-C calculation. Mai Quinonezkarl MENDOZA LAB BLOOD ORDERABLES Final Result [facility]
[address] [place] [address], * (ABNORMAL) Comprehensive Metabolic Panel (03/16/2025 6:41 AM EDT) Glucose 88 65 - 99 mg/dL 03/16/2025 8:00 AM EDT [facility] BUN 7(L) 8 - 23 mg/dL 03/16/2025 8:00 AM EDT [facility] Creatinine 0.54(L) 0.57 - 1.00 mg/dL 03/16/2025 8:00 AM EDT [facility] Sodium 134(L) 136 - 145 mmol/L 03/16/2025 8:00 AM EDT [facility] Potassium 4.0 3.5 - 5.2 mmol/L 03/16/2025 8:00 AM EDT [facility] Comment:Slight hemolysis det ected by analyzer. Result may be falsely elevated. Chloride 92(L) 98 - 107 mmol/L 03/16/2025 8:00 AM EDT [facility] CO2 30.0(H) 22.0 - 29.0 mmol/L 03/16/2025 8:00 AM EDT [facility] Calcium 9.6 8.6 - 10.5 mg/dL 03/16/2025 8:00 AM EDT [facility] Total Protein 6.2 6.0 - 8.5 g/dL 03/16/2025 8:00 AM EDT [facility] Albumin 4.2 3.5 - 5.2 g/dL 03/16/2025 8:00 AM EDT [facility] ALT (SGPT) 12 1 - 33 U/L 03/16/2025 8:00 AM EDT [facility] AST (SGOT) 20 1 - 32 U/L 03/16/2025 8:00 AM EDT [facility] Alkaline Phosphatase 65 39 - 117 U/L 03/16/2025 8:00 AM EDT [facility] Total Bilirubin 0.5 0.0 - 1.2 mg/dL 03/16/2025 8:00 AM EDT [facility] Globulin 2.0 gm/dL 03/16/2025 8:00 AM EDT [facility] Comment:Calculated Result A/G Ratio 2.1 g/dL 03/16/2025 8:00 AM T [facility] BUN/Creatinine Ratio 13.0 7.0 - 25.0 03/16/2025 8:00 AM T [facility] Anion Gap 12.0 5.0 - 15.0 mmol/L 03/16/2025 8:00 AM EDT [facility] eGFR 95.6 >60.0 mL/min/1.7 3 03/16/2025 8:00 AM T [facility] Blood Line / Unknown 03/16/2025 6: 41 AM EDT 03/16/2025 7:00 AM EDT [facility] - 03/16/2025 8:00 AM EDT GFR [...] Patiño APRN LAB BLOOD ORDERABLES Final Result [facility]
[address] [place] [address], from Last 3 Months Insurance MEDICARE A & B Member Subscriber Plan / Payer (Ef fective 2013-Present) Name:Antonia Pickens Member ID:[id number] Relation to Subscriber:Self Name:Antonia Pickens Subscriber ID:[id number] Payer ID:[id number] Group ID:Not on file Type:Not on file Address: [address] Care Teams Department Chairperson Relationship Specialty Start Date End Date Tariq Betancourt MD [address] [place] [facility] [address] [place] [address] PCP - General Family Medicine 03/06/25
--- OUTSIDE RECORDS SUMMARY | 2025-06-13 12:19 | XMS_ITS | Clinical Summary ---
Author Organization [facility] Address [address] [place] [address] Care Team Providers Care Sewing Machine Repairer Name Role Phone Tariq Betancourt MD Primary Care Provider [phone] Stan Leroy MD Unavailable [phone] Allergies No known active allergies Medications [...] or (1 - 1-dose 75+ series) 2023 [id number] Vaccine ( - 2023- season) 2024 08/25/2022, [...] age to complete this topic Insurance MEDICARE [facility] Member Subscriber Plan / Payer (Ef fective 2022-Present) Name:Antonia Pickens Relation to Subscriber:Self Name:Antonia Pickens Payer ID:Not on file Group ID:Not on file Type:Not on file Address: [address] [place], [place] [address]A [place] [address] Care Teams Sewing Machine Repairer Relationship Specialty Start Date End Date Tariq Betancourt MD [address] [place] [address] PCP - General 03/21/21 Stan Leroy MD [address] [place] [address] Medical Oncologist Hematology and Oncology 04/10/24 BAYLEE Henao [facility] [place] [address] Referring Physician Orthopaedic Surgery 04/07/24
--- OUTSIDE RECORDS SUMMARY | 2025-06-13 12:19 | XMS_ITS | Referral Summary ---
Author Organization [employer] ([place], [place], [place], [place]) Address [address] [place] [address] Care Team Providers Care Marine Extension Agent Name Role Phone Ezequiel Houston MD Primary [...] the past 12 months, has t he [employer], gas, oil, or water [employer] threatened to shut off services in your [...] harm? Never 05/02/2024 How often does anyone, graec cardona family and friends, scream or curse at you? Never 05/02/2024 Housing Stability Answer Date Recorded What is your living situation today? I have a [facility] place to live 05/02/2024 Think about the [...] Do you speak a language other than [place] at [facility]? No 05/02/2024 Do you want help with [...] Treatment Not on file Insurance [employer] [id number] MEDICARE PART A B Advance Directives For more information, please contact: [phone] * Full Code (Latest Code Status on File) Date Activated Date Inactivated Comments 05/02/2024 8:35 PM 05/03/2024 7:01 PM -Attempt Res uscitation if person has no pulse and is not breathing. -If no pulse or not breathing attempt CPR/CODE. -Call Rapid Response if patient is in distress. Care Teams Marine Extension Agent Relationship Specialty Start Date End Date Ezequiel Houston MD PCP - General Orthopedic Surgery 05/02/24
--- OUTSIDE RECORDS SUMMARY | 2025-06-13 12:19 | XMS_ITS | Patient Health Record ---
Author Organization [facility] Address [address] [facility] [address] [place] [id number] Care Team Providers Care Bailer Tenders Supervisor Name Role Phone Keeley Betancourt Primary [...] Interpretation: Performing Lab: Notes/Report: Test performed by [employer] [facility] , [address], [place] [address] Gamal Haywood MD, Small Machine Bindery Operator CLIA: [id number] Vitamin B12 309 536-4221 pg/mL P-Comprehensive Metabolic Pa yoseph (CMP) Reviewed date:02/20/2025 09:44:27 PM Interpretation: Performing Lab: Notes/Report: Test performed by [employer] [address] [place] [address] , [place] [address] Gamal Haywood MD, Small Machine Bindery Operator CLIA: [id number] Sodium 137 135-145 mmol/L Potassium 3.7 3.5-5.3 [...] Interpretation: Performing Lab: Notes/Report: Test performed by [employer] [address] [place] [address] , [facility] [place] [place] [address] Gamal Haywood MD, Small Machine Bindery Operator CLIA: [id number] Iron 140 37-145 ug/dL P-Lipid Panel Reviewed date:02/20/2025 09:44:27 PM Interpretation: Performing Lab: Notes/Report: Test performed by [employer] [address] [place] [address] , [facility] [place] [place] [address] Gamal Haywood MD, Small Machine Bindery Operator CLIA: [id number] Cholesterol 163 <200 mg/dL Triglycerides 106 <150 [...] Interpretation: Performing Lab: Notes/Report: Test performed by [employer], [facility] [address] [place] [address] [place] [address] Gamal Haywood MD, Small Machine Bindery Operator CLIA: [id number] TSH 2.17 0.43-5.25 mU/L P-Microalbumin/Creatinine, R andom Urine Sample Reviewed date:02/20/2025 09:44:27 PM Interpretation: Performing Lab: Notes/Report: Test performed by [employer] [address] [place] [address] , [address], [place] [address] Gamal Haywood MD, Small Machine Bindery Operator CLIA: [id number] Albumin/Creatinine Ratio, Urine 18 0-30 ug/mg Microalbumin, Urine, Random 1.4 Creatinine, Urine 77.8 CT Scan : Chest, low dose Reviewed date:05/10/2025 08:10:22 AM Interpretation:Abnormal Performing Lab: Notes/Report: Abnormal P-Vitamin B12 Reviewed date:08/28/2024 09:43:33 PM Interpretation:304 Performing Lab: Notes/Report: Test performed by [employer] [address] [place] [address] , [address], [place] [id number] Gamal Haywood MD, Small Machine Bindery Operator CLIA: [id number] Vitamin B12 319 952-9014 pg/mL CBC Venipuncture (in house) Reviewed date:08/28/2024 09:43:33 [...] - 38 platlet 323 100 - 400 P-Comprehensive Metabolic Pa yoseph (CMP) Reviewed date:08/28/2024 09:43:33 PM Interpretation:Na 131, cl 92, gluc 100 Performing Lab: Notes/Report: Test performed by [employer] [address] [place] [address] , [address], [place] [address] Gamal Haywood MD, Small Machine Bindery Operator CLIA: [id number] Sodium 131 135-145 mmol/L Potassium 4.0 3.5-5.3 [...] Interpretation:17 Performing Lab: Notes/Report: Test performed by [employer] [address] [place] [address] , [facility], [place] [address] Gamal Haywood MD, Small Machine Bindery Operator CLIA: [id number] Iron 17 37-145 ug/dL P-Lipid Panel Reviewed date:08/28/2024 09:43:33 PM Interpretation:Normal Performing Lab: Notes/Report: Test performed by [employer] [address] [place] [address] , [place] [address] Gamal Haywood MD, Small Machine Bindery Operator CLIA: [id number] Cholesterol 162 <200 mg/dL Triglycerides 142 <150 [...] Interpretation:118 Performing Lab: Notes/Report: Test performed by [employer] [address] [facility] [address], [place] [address] Gamal Haywood MD, Small Machine Bindery Operator CLIA: [id number] Vitamin D 25-Hydroxy 118.0 30.0-100.0 ng/mL Interpretation [...] - 38 plat 318 100 - 400 Reason For Referral Reason at [facility] Merrimackniko cowan for post op hip replacement rehab Diagnosis 1 S/P hip hemiarthropl asty (Z96.649) [facility] Referring Provider First Name Keeley Gunn Referring Provider Last Name [facility] Referring Provider [facility] dee Referred Provider Physical Therapy, . Referred Provider Specialty Physical The rapist General Notes Nanci James 06/21/20 24 9:22:13 AM > faxed to scheduling at [facility] Referral Priority Routine Reason skin lesions on face . Would prefer seeing manager disaster recovery in [facility] Diagnosis 1 AK (actinic keratosi s) (L57.0) Referral Organization [facility] Referring Provider First Name Keeley Gunn Referring Provider Last Name Serafin Referring Provider [facility] dee Referred Provider Dermatology, . Referred Provider Specialty Dermatology General Notes Nanci James 024 1:54:17 PM > referral submitted via [facility] website, Nanci James 08/24/2024 2:58:20 PM > appt 08/25/2024 at 10:00am in [facility] Referral Priority Routine Reason Dr. José Miguel Reyes for PAD, carotid disease; dilated left atrium Diagnosis 1 PAD (peripheral beryl ry disease) (I73.9) [facility] Referring Provider First Name Keeley Gunn Referring Provider Last Name Serafin Referring Provider [facility] ctice Referred Provider Cardiology, . Referred Provider Specialty Cardiovascul ar Disease General Notes Nanci James 2024 10:46:57 AM > faxed to [place] office as he does not have a [place] number Referral Priority Routine Reason Lung mass on chest C T Diagnosis [address] (R 93.89) [facility] Referring Provider First Name Keeley Gunn Referring Provider Last Name Serafin Referring Provider [facility] ctice Referred Organization [facility] OP Referred Provider Bartolome Brannon Referred Address [address] [place] [address] [id number], Referred Provider Specialty Pulmonary Di seases General Notes Nanci James 2024 08:41:46 AM > faxed to [facility] Pulmonology, Nanci James 05/17/2025 03:40:56 PM > [...] Status Risk Notes Problem Vitamin D deficiency (30129031) Vitamin D deficiency (E55.9) Active confirmed Problem Vitamin B12 deficiency (329965519) Vitamin B12 deficiency (E53.8) Active confirmed Problem Anemia (946889404) Anemia (D64.9) Active confirmed Problem Essential hypertension (56779846) Essential hypertension (I10) Active confirmed Problem Abnormal mammogram (153865514) Abnormal mammogram (R92.8) Active confirmed Problem Seasonal allergy (481191849) Seasonal allergies (J30.2) Active confirmed Problem Iron deficiency anemia (30282058) Iron deficiency anemia (D50.9) Active confirmed Problem Primary osteoarthritis (562660321) Primary osteoarthritis involving multiple joints (M15.0) Active confirmed Problem COPD - Chronic obstructive pulmonary disease (15445150) Chronic obstructive pulmonary disease, unspecified COPD type (J44.9) Active confirmed Problem Obstructive sleep apnea syndrome (22160061) FRNASISCO (obstructive sleep apnea) (G47.33) Active confirmed Problem Localized, primary osteoarthritis of the pelvic region and thigh (854288842) 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) Active confirmed Problem Tobacco user (096276352) Cigarette nicotine dependence without complication (F17.210) Active confirmed Problem Dyslipidemia (517871157) Dyslipidemia (E78.5) Active confirmed Problem Peripheral vascular disease (279595151) PAD (peripheral artery disease) (I73.9) Active confirmed Problem Tobacco use (552430072) Tobacco use disorder (F17.200) Active confirmed Problem Age-related osteoporosis (624909419) Osteoporosis without current pathological fracture, unspecified osteoporosis type (M81.0) Active confirmed Problem Osteoporosis (54201148) Osteoporosis, unspecified (M81.0) Active confirmed Problem Atelectasis (84687214) Atelectasis of both lungs (J98.11) Active confirmed Problem Ex-smoker (finding) (2963344) History of cigarette smoking (Z87.891) Active confirmed Problem Left carotid artery occlusion (857880247175005) Left carotid stenosis (I65.22) Active confirmed Problem Radiology result abnormal (999301576) Abnormal chest CT (R93.89) Active confirmed Problem S/P hip hemiarthroplasty (Z96.649) Active confirmed Vital Signs Heart Rate 75 /min 10/03/2024 Blood pressure diastolic 70 mm Hg 04/12/2025 Height 63.50 in 04/12/2025 Blood pressure systolic 120 mm Hg 04/12/2025 Weight 110.2 lbs 04/12/2025 BMI 19.21 kg/m2 04/12/2025 Encounters Encounter Location Date Provider Diagnosis [address] [id number] 06/20/2024 R Luis A Erwint S/P hip hemiarthropl asty Z96.649 and Hypoxemia R09.[address] [id number] 08/24/2024 R Luis A [place] Essential hypertensi [...] L57.0 and Screening for breast cancer Z12.[address] [id number] 09/13/2024 R Luis A Betancourt Anemia D64.9 [facility] [address] [facility] [address] [place] [id number] 10/03/2024 R Luis A Betancourt Iron deficiency anem ia D50.9 [facility] [address] [facility] [address] [place] [id number] 02/15/2025 R Luis A Betancourt Adult general [...] in adult Z68.1 and Osteoporosis, unspecified M81.0 [facility] [address] [facility] [address] [place] [id number] 04/12/2025 R Luis A Betancourt Tobacco use disorder F17.200 ; Chronic obstructive pulmonary disease, unspecified COPD type J44.9 ; Atelectasis of both lungs J98.11 and FRANSISCO (obstructive sleep apnea) G47.33 [facility] [address] [facility] [address] [place] [id number] 06/21/2024 R Luis A Betancourt [facility] [address] [facility] [address] [place] [id number] 08/28/2024 R Luis A Betancourt Vitamin D deficiency E55.9 [facility] [address] [facility] [address] [place] [id number] 02/20/2025 R Luis A [facility]ancourt [facility] [address] [facility] [address] [place] [id number] 05/07/2025 R Luis A Betancourt Abnormal chest [...] 05/07/[address] (ICD-10 - R93.89) 04/12/2025 Atelectasis of both lungs (ICD-10 - J98.11) 02/15/2025 Dyslipidemia (ICD-10 - E78.5) 08/24/2024 Chronic obstructive pulmonary disease, unspecified COPD type (ICD-10 - J44.9) 08/24/2024 Primary osteoarthritis involving multiple joints (ICD-10 - M15.0) 02/15/2025 Chronic obstructive pulmonary disease, unspecified COPD type (ICD-10 - J44.9) 04/12/2025 FRANSISCO (obstructive sleep apnea) (ICD-10 - G47.33) 02/15/2025 Primary osteoarthritis involving multiple joints (ICD-10 [...] [address], [address], [place], [id number], Insurance Providers Payer Name Payer Address Payer Phone Subscriber Number Group Number Insured Name Patient Relationship to Insured Coverage Start Date Coverage End Date MEDICARE PART B [address] [address] [place] [id number] [phone] [id number] NIHARIKA NARVAEZ Self - [place] [id number] NIHARIKA NARVAEZ Self - patient is the [...] Hospitalization History Reason Date(Month/Year) Bronchitis- [facility] in [place] 11/2014
--- OUTSIDE RECORDS SUMMARY | 2025-06-13 12:19 | XMS_ITS | Clinical Summary ---
Author Organization [employer] ([place], [place], [place], [place]) Address [address] [place] [address] Care Team Providers Care Principal Architect Name Role Phone Ezequiel Houston MD Primary [...] the past 12 months, has t he [employer], gas, oil, or water [employer] ([employer] threatened to shut off services in your home? No 05/02/2024 Interpersonal Safety Answer Date Record ed How often does anyone, rgace cardona family and friends, physically hurt you? [...] your living situation today? I have a [facility] place to live 05/02/2024 Think about [...] Do you speak a language other than Eritrean at [facility]? No 05/02/2024 Do you want help [...] DXA SCAN 1948 Depression Screening (12+) 1960 Hepatitis C Screening 1966 DTAP/TDAP/TD VACCINES (1 - Tdap) 1967 Shingles Vaccine (Zoster) (1 of 2) 1998 Medicare Initial AWV [id number] 07/10/2014 Respiratory Syncytial Virus (RSV) Adult or (1 - 1-dose 75+ series) 2023 COVID-19 VACCINE ( - 2023-2 5 season) 2024 08/25/2022, 06/18/2022, 09/11/2021, Additional history exists Falls Risk Screening 11/08/2024 Tobacco Cessation Counseling and Screening (12+) 05/03/2025 05/03/2024 Influenza Vaccine (#1) 2025 2, 08/15/2021, 08/23/2020, Additional history exists Pneumococcal 50+ years Completed 08/26/2023, 2016 Insurance [place] [id number] [address] [place] [address] Advance Directives For more information, please contact: [phone] * Full Code (Latest Code Status on File) Date Activated Date Inactivated Comments 05/02/2024 8:35 PM 05/03/2024 7:01 PM -Attempt Res uscitation if person has no pulse and is not breathing. -If no pulse or not breathing attempt CPR/CODE. -Call Rapid Response if patient is in distress. Care Teams Principal Architect Relationship Specialty Start Date End Date Ezequiel Houston MD PCP - General Orthopedic Surgery 05/02/24
--- NOTE | 2025-06-13 13:06 | ECG_ITS ---
APPROVED REPORT Exam: Resting ECG HR:69 bpm ECG Measurements Heart Rate 69 AXES NH 148 P 69 QRSd 78 QRS 65 QT 357 T 137 QTc 375 Conclusion SINUS RHYTHM LOW QRS VOLTAGE IN PRECORDIAL LEADS [QRS DEFLECTION < 1.0 mV IN CHEST LEADS] MODERATE T-WAVE ABNORMALITY, CONSIDER LATERAL ISCHEMIA [-0.1+ mV T-WAVE IN I/aVL/V5/V6] ABNORMAL ECG UNCONFIRMED REPORT Electronically signed by : Magdiel Westbrook MD 06/14/2025 09:00:19
[2025-06-13 13:26] LABS: Hematocrit 35.9 % (37.0-47.0); Hemoglobin 11.9 g/dL (12.2-16.2); Immature Granulocytes % 0.8 %; Mean Corpuscular HGB Conc 33.1 g/dL (31.8-35.4); Mean Corpuscular Hemoglobin 32.7 pg (27.0-31.2); Mean Corpuscular Volume 98.6 fl (81-99); Nucleated Red Blood Cells % 0 %; Platelet Count 279 K/mm3 (142-424); Red Blood Count 3.64 M/mm3 (4.20-5.40); Red Cell Distribution Width-SD 47.9 fL; White Blood Count 8.7 K/mm3 (4.8-10.8)
[2025-06-13 13:29] LABS: Anion Gap 9.7 mEq/L (5-15); Blood Urea Nitrogen 15 mg/dl (7-17); Calcium 8.9 mg/dl (8.4-10.2); Carbon Dioxide 29 mmol/L (22.0-30.0); Chloride 101 mmol/L (98-107); Creatinine Clearance Estimated 37 mL/min (50-200); Creatinine,Serum 0.50 mg/dl (0.52-1.04); Estimated Glomerular Filt Rate 120 ml/min (>60); GFR (African American) 145 ML/MIN (>60); Glucose 88 mg/dl (74-100); Potassium 3.7 mmoL/L (3.5-5.1); Sodium 136 mmol/L (136-145)
== END 2025-06-13 23:59 | disposition home or self-care (01) ==
LOC: PREOP 12:17
PROVIDERS: PCP Family Medicine; Visit Provider Internal Medicine Pulmonary Disease
DX: Z01.810 Encounter for preprocedural cardiovascular examination (principal); Z01.812 Encounter for preprocedural laboratory examination; R94.31 Abnormal electrocardiogram [ECG] [EKG]
CPT/HCPCS: 80048; 85025; 93005

== ENCOUNTER 2025-06-22 05:57 | Day surgery (SDC) | payer MEDICARE, OTHER, SELFPAY ==
--- NOTE | 2025-06-13 13:11 | SUR.PREOP ---
Received instruction from Dr. Brannon's office that he instructs that it is ok for pt to hold her ASA and Plavix for 5 days prior to procedure and that they are obtaining cardiac clearance from [facility].
[2025-06-14 08:52] VITALS: BMI 19.7
[2025-06-22] VITALS (11 sets, daily range): BP systolic 84–176; BP diastolic 59–74; PULSE 63–68; RESP 16–18; TEMP 36.1–38; O2SAT 92–98
--- NOTE | 2025-06-22 07:03 | ECG_ITS ---
APPROVED REPORT Exam: Resting ECG HR:65 bpm ECG Measurements Heart Rate 65 AXES IN 184 P 72 QRSd 84 QRS 58 QT 372 T 117 QTc 384 Conclusion SINUS RHYTHM NONSPECIFIC ST & T-WAVE ABNORMALITY BORDERLINE ECG UNCONFIRMED REPORT Electronically signed by : Magdiel Westbrook MD 06/24/2025 12:47:32
--- NOTE | 2025-06-22 07:12 | EXP.ANES.CKL ---
[facility] Disclaimer: The information contained in this section may have been updated after the patient was seen, as this information can be updated by other users. Medical History History of femur fracture CAD (coronary artery disease) Abnormal CT scan of lung Smoking greater than 30 pack years Lung nodule COPD mixed type Sleep apnea COPD (chronic obstructive pulmonary disease) Menopause Osteoporosis Osteoarthritis Carpal tunnel syndrome History of cataract Hyperlipidemia Hypertension Tobacco abuse Renal artery stenosis Edema of left lower extremity Pain in left lower leg Claudication Surgical History History of back surgery History of tubal ligation History of intravascular stent placement History of right hip replacement History of colonoscopy History of carpal tunnel release History of left hip replacement Family History Brother Family history of myocardial infarction Family history of diabetes mellitus type II Mother Family history of myocardial infarction Other Family history of stroke Social History (Updated 06/22/25 @ 06:23 by Sangeeta Aburto RN) Smoking Status: Current every day smoker tobacco type: cigarettes packs per day: 1 alcohol intake: never substance use type: denies use current occupational status: retired Travel in the last 8 weeks?: None household members: spouse housing: house current occupational exposures/hazards: No caffeine: No Have you lived/traveled outside US in past 30 days?: No Contact w/someone who lives/traveled outside US past 30 days?: No Exposure to someone with infectious disease in past 14 days?: No Do you have a fever (greater than 100.4 F or 38 C)?: No Have you tested positive for COVID-19?: No Exposed to someone with COVID-19 in past 14 days?: No Do you have a sore throat?: No Do you have a cough?: No Do you have any weakness?: No Are you experiencing any nausea/vomitting?: No Do you have any diarrhea?: No Are you experiencing any unusual bleeding?: No Do you have any muscle aches/pain?: No Do you have any abdominal pain?: No Are you experiencing loss of taste or smell?: No [facility] Anesthesia Checklist Patient Identification Patient Identification: Arm Band and Verbal (Name & ) Structural Data Admitted From: Home Planned Operative Procedure/s: bronchoscopy w/ robotic navigation Consent for Planned Operative Procedure(s) Verified: Yes Verified Documents: Surgical Consent Chart Verification Results Verified: ECG Additional verifications Anesthesia Reactions: No Hx Blood Transfusions: No Blood Transfusion Reaction: No Airway Assessment Mallampati Score:: Class II C-Spine Mobility Assessed: Yes Dentition: Edentulous Neurological Assessment Level of Consciousness: Awake, Alert and Appropriate Hx Seizures: No Numbness or tingling in extremities: No Anesthesia Plan Anesthesia Risk discussed: Yes Anesthesia Plan: Verified ASA Class: III Anesthesia Type: General
--- NOTE | 2025-06-22 07:50 | EXP.PULM.CON ---
History of Present Illness History of present illness: This is not a consultation note. This history and physical note. Mr. Oliveros is a 74-year-old female current smoker greater than 85-thhz-ging smoking history found to have left upper lobe lung nodule presented for an elective bronchoscopy. She denies any new respiratory complaints. She denies any new respiratory complaints. [facility] Disclaimer: The information contained in this section may have been updated after the patient was seen, as this information can be updated by other users. Medical History History of femur fracture CAD (coronary artery disease) Abnormal CT scan of lung Smoking greater than 30 pack years Lung nodule COPD mixed type Sleep apnea COPD (chronic obstructive pulmonary disease) Menopause Osteoporosis Osteoarthritis Carpal tunnel syndrome History of cataract Hyperlipidemia Hypertension Tobacco abuse Renal artery stenosis Edema of left lower extremity Pain in left lower leg Claudication Surgical History History of back surgery History of tubal ligation History of intravascular stent placement History of right hip replacement History of colonoscopy History of carpal tunnel release History of left hip replacement Family History Brother Family history of myocardial infarction Family history of diabetes mellitus type II Mother Family history of myocardial infarction Other Family history of stroke Social History (Updated 06/22/25 @ 06:23 by Sangeeta Aburto RN) Smoking Status: Current every day smoker tobacco type: cigarettes packs per day: 1 alcohol intake: never substance use type: denies use current occupational status: retired Travel in the last 8 weeks?: None household members: spouse housing: house current occupational exposures/hazards: No caffeine: No Have you lived/traveled outside US in past 30 days?: No Contact w/someone who lives/traveled outside US past 30 days?: No Exposure to someone with infectious disease in past 14 days?: No Do you have a fever (greater than 100.4 F or 38 C)?: No Have you tested positive for COVID-19?: No Exposed to someone with COVID-19 in past 14 days?: No Do you have a sore throat?: No Do you have a cough?: No Do you have any weakness?: No Are you experiencing any nausea/vomitting?: No Do you have any diarrhea?: No Are you experiencing any unusual bleeding?: No Do you have any muscle aches/pain?: No Do you have any abdominal pain?: No Are you experiencing loss of taste or smell?: No Review of Systems Constitutional Constitutional: Reports fatigue and Reports lethargy Eyes Eyes: Denies eye discharge, Denies dry eyes, Denies irritation and Denies itchy eyes ENT Ears, Nose, Mouth, and Throat: Denies epistaxis, Denies facial pain, Denies lip swelling and Denies throat swelling *Cardiovascular Cardiovascular: Reports dyspnea and Reports dyspnea on exertion *Respiratory Respiratory: Denies change in phlegm color, Reports chest congestion, Reports cough, Reports dyspnea, Reports dyspnea on exertion, Denies excessive phlegm production, Denies hemoptysis, Denies pain on inspiration, Denies pain with cough and Denies wheezing *Gastrointestinal Gastrointestinal: Denies abdominal pain, Denies belching and Denies cramping *Musculoskeletal Musculoskeletal: Reports back pain and Reports other (No small joint swelling or Pain) Psychiatric Psychiatric: Denies homicidal ideation and Denies suicidal ideation Endocrine Endocrine: Reports fatigue and Denies heat intolerance Hematologic/Lymphatic Hematologic/Lymphatic: Denies easy bleeding and Denies lymphadenopathy Allergic/Immunologic Allergic/Immunologic: Denies itchy eyes, Denies lip swelling, Denies throat swelling and Denies wheezing Pulmonology Exam Inpatient Vital signs and Labs for Last 24 Hours: Temp Pulse Resp BP Pulse Ox O2 Del Method 97.9 F 63 18 176/74 H 95 Room Air 06/22/25 06:22 06/22/25 06:22 06/22/25 06:22 06/22/25 06:22 06/22/25 06:22 06/22/25 06:22 Constitutional: Present mild distress Head: Present normocephalic and atraumatic ENT: Present normal exam, normal oropharynx and mucous membranes moist Neck: Present normal inspection and full ROM Respiratory: Present rhonchi, diminished air movement and able to speak in complete sentences; Absent prolonged expiratory phase, respiratory distress, wheezes or crackles Cardiac: Present S1/S2, Tachycardia and radial pulses present GI: Present soft and distention; Absent tenderness or guarding Rectal (female): Present deferred (female): Present deferred Skin: Present intact; Absent cyanosis or jaundice Neuro: Present alert, awake and oriented x 3 Extremities: Present normal inspection; Absent clubbing or cyanosis Psychiatric: Present normal affect and cooperative Meds Home Medications and Allergies Home Medications ?Medication ?Instructions ?Recorded ?Confirmed ?Type aspirin 81 mg tablet,delayed 81 mg PO DAILY heart health 03/20/21 06/22/25 History release (Adult Low Dose Aspirin) calcium 600 mg (as 1 tab PO DAILY Supplement 03/20/21 06/22/25 History carbonate)-vitamin D3 5 mcg (200 unit) tablet (Calcium 600 + D(3)) fluticasone propionate 50 2 spray intranasal DAILY allergies 03/20/21 06/22/25 History mcg/actuation nasal spray,suspension clopidogrel 75 mg tablet 75 mg PO DAILY Blood thinner 09/14/22 06/22/25 History alendronate 70 mg tablet 70 mg PO WEEKLY . 02/17/23 06/22/25 History metoprolol succinate 100 mg 100 mg PO DAILY BLOOD PRESSURE 03/17/23 06/22/25 History tablet,extended release 24 hr albuterol sulfate 90 mcg/actuation 2 puff inhalation Q6H PRN 03/15/24 06/22/25 History aerosol inhaler Shortness Of Breath amlodipine 10 mg tablet 10 mg PO DAILY 03/15/24 06/22/25 History furosemide 40 mg tablet 20 mg PO DAILY 04/17/25 06/22/25 History atorvastatin 40 mg tablet 40 mg PO DAILY 05/15/25 06/22/25 History benazepril 40 mg tablet 40 mg PO DAILY 05/15/25 06/22/25 History duloxetine 60 mg capsule,delayed 60 mg PO DAILY 05/15/25 06/22/25 History release megestrol 800 mg/20 mL (20 mL) 800 mg (20 mL) PO DAILY #600 mL 05/30/25 06/22/25 Rx oral suspension bismuth subcit K 140 See Rx Instructions PO PER PKG DIR 06/05/25 06/22/25 Rx mg-metronidazole 125 #120 caps mg-tetracycline 125 mg cap (Pylera) bismuth subsalicylate 262 mg 1 tab PO QID #40 tabs 06/07/25 06/22/25 Rx chewable tablet metronidazole 500 mg tablet 500 mg PO QID 10 days #40 tabs 06/07/25 06/22/25 Rx omeprazole 20 mg capsule,delayed 20 mg PO BID 10 days #20 caps 06/07/25 06/22/25 Rx release New Prescriptions to Start Prescriptions: Allergies Allergy/AdvReac Type Severity Reaction Status Date / Time cefdinir (From Omnicef) Allergy Intermediate disoriented Verified 06/22/25 06:16 ibandronate sodium (From Allergy Intermediate BP high & Verified 06/22/25 06:16 Boniva) low moxifloxacin (From Avelox) Allergy Unknown Unknown Verified 06/22/25 06:16 allergy reaction Assessment and Plan *Assessment and plan (1) Lung nodule: Status: Acute Category: Medical Code(s): R91.1 - Solitary pulmonary nodule (2) Smoking greater than 30 pack years: Status: Acute Category: Social Hx Code(s): F17.210 - Nicotine dependence, cigarettes, uncomplicated Plan Mr. Oliveros is a 74-year-old female current smoker greater than 35-romn-tabn smoking history found to have left upper lobe lung nodule presented for an elective bronchoscopy. She denies any new respiratory complaints. She denies any new respiratory complaints. # Greater than 30 PPD: #Lung nodule: CT chest April 2025 showed lobulated left upper lobe lung nodule at 2.8 cm in size. No significant mediastinal or hilar lymphadenopathy noted. The nodule is new from her prior low-dose CT from March 2024. Calcified right hilar lymphadenopathy noted Plan: Proceed with scheduled Ion navigational bronchoscopy transbronchial biopsy EBUS FNA lymph node surveillance
--- NOTE | 2025-06-22 09:34 | XR_ITS ---
FINAL REPORT CLINICAL HISTORY: ION BRONCH WITH BIOPSY 43.37 MgY 5.19 MINUTES TIME FINDINGS: FLUOROSCOPY WITH FILMS Fluoroscopic guidance was provided under the direction of the clinical service for intraoperative procedure. Single digital spot radiograph of the left thorax shows bronchoscope projecting in the left perihilar region. Fluoroscopy dose:43.37 MgY Authenticated and ERN
--- NOTE | 2025-06-22 10:33 | P.PNANES_ITS ---
[facility] Anesthesia Record Part I Anesthesia Record I Intake, IV Amount: 600 Hydration: Adequate Estimated blood loss (mL): 0 Urine output (mL): 0 Blood Products used (#): none Blood Pressure: 84/65 SaO2: 92 Pulse Rate: 68 Airway Patency: Patent Respiratory Rate: 16 Temperature: 97.0 F Patient is:: Drowsy, Nasal O2 and Stable Stable to PACU at:: 10:30
--- NOTE | 2025-06-22 10:35 | EXP.BRONCH.N ---
Procedure: Date: 06/22/25 Patient Date of :: 1950 Procedure Performed:: Bronchoscopy airway examination, Ion robotic bronchoscopy with transbronchial needle aspiration, transbronchial brush and transbronchial forceps lung, endobronchial ultrasound-guided lymph node surveillance and fine-needle aspiration of lymph node Indications:: Lung nodule Lymphadenopathy Performing Provider:: Bartolome Brannon MD Referring Provider:: Dr: Tariq Betancourt MD Sedation:: General anesthesia Procedure:: Bronchoscopy airway examination, Ion robotic bronchoscopy with transbronchial needle aspiration, transbronchial brush and transbronchial forceps lung, endobronchial ultrasound-guided lymph node surveillance and fine-needle aspiration of lymph node: A clean diagnostic bronchoscopy was advanced to the ET tube and airway examination was performed. Airways appeared grossly normal, no evidence of mucoid secretions, mucous plugging active bleeding/old blood clots noted. Mild amount of secretions were noted. Diagnostic bronchoscopy was retracted, and Robotic Ion bronchoscopy was introduced through the ET tube. Patient images were previously uploaded into the [employer] Plan point software. The target nodule sampling was planned, and the pathway was mapped. The nodule measured 24 mm in long axis. Following airway examination, airway registration was performed using shape sensing robot assisted bronchoscopy (SSRAB). We were 2 mm from the near edge of the nodule in the MARTELL. A flexion 21 needle was used to perform FNA of the MARTELL Lung nodule. A total of 3 passes were made. This was followed by pass with a needle brush, 1 pass was made. Transbronchial forceps biopsies were then performed with a total of 8 biopsies were made in the MARTELL Lung nodule. Bronchoalveolar lavage was performed with instillation of 15 cc normal saline with return of 5 cc back. Samples from transbronchial FNA, brush, forceps biopsy and bronchoalveolar lavage were sent in CytoLyt for cytopathologic examination. Ion robotic bronchoscopy was retracted and EBUS bronchoscope was introduced for lymph node surveillance. Five passes were taken using 21 gauge needing at lymph node stations 10L 7, 4L and 4R. Resultant lymph node FNA sample were labelled separately for each lymph node station and were sent in CytoLyt for cytopathologic examination. Findings:: Please see the procedure note Recommendations:: Postoperative bronchoscopy instructions Follow in pulmonary clinic in 5 to 7 days Complications:: No acute immediate complication Estimated blood obtained (mL): 2
--- NOTE | 2025-06-22 10:39 | XR_ITS ---
FINAL REPORT CLINICAL HISTORY: md order post bronch COMPARISON: 03/15/2025 FINDINGS: A single frontal view of the chest was obtained. No acute pulmonary opacity is present. There is no evidence of effusion or pneumothorax. Mediastinum is unremarkable. Heart size is normal. IMPRESSION: No acute abnormality. Reviewed, Interpreted and Dictated by Mara Shaikh MD Transcribed by Karon Talamantes [facility]henticated and [facility]
--- NOTE | 2025-06-22 13:45 | EXP.ANES.II ---
[facility] Anesthesia Record Part II Anesthesia Record Part II Discharge Time: 11:00 Destination: Surgical Day Care (OP Surgery) PACU nurse assessment reviewed?: Yes Patient Condition:: Good Anesthesia Complications:: None Swallowing reflex intact?: Yes Airway Patency: Patent Cyanosis?: No Blood Pressure: 148/68 SaO2: 95 Respiratory Rate: 16 Pulse Rate: 66 Temperature: 97 F Mental Status: Alert & Oriented Pain level:: 0 Nausea and/or vomitting:: None Intake, IV Amount: 0 Hydration: Adequate
== END 2025-06-22 12:05 | disposition home or self-care (01) ==
PROVIDERS: PCP Family Medicine; Visit Provider Internal Medicine Pulmonary Disease
PROC: (CPT 31623; principal; 2025-06-22 07:30)
DX: C34.12 Malignant neoplasm of upper lobe, left bronchus or lung (principal); J44.9 Chronic obstructive pulmonary disease, unspecified; F17.210 Nicotine dependence, cigarettes, uncomplicated; G47.33 Obstructive sleep apnea (adult) (pediatric); I10 Essential (primary) hypertension; E78.5 Hyperlipidemia, unspecified; Z79.899 Other long term (current) drug therapy
CPT/HCPCS: 31623; 31624; 31627; 31628; 31629; 31653; 71045; 76000; 88112; 88173; 88305; 88341; 88342; 93005; J1100; J2003; J2371; J2405; J2704; J3010

== ENCOUNTER 2025-08-31 13:37 | Day surgery (SDC) | payer MEDICARE, OTHER, SELFPAY ==
[2025-08-31 13:48] VITALS: BP 129/72; PULSE 68; RESP 18; O2SAT 95; BMI 21.9
[2025-08-31] MEDS: LIDOCAINE 1% 5ML PF VIAL 10 ML (14:14)
[2025-08-31] MEDS: BUPIVACAINE 0.25% 10ML INJ 25 MG IJ (14:14)
[2025-08-31 14:15] VITALS: BP 164/67; PULSE 74; RESP 18; O2SAT 97
[2025-08-31] MEDS: DEXAMETHASONE 10MG/ML 1ML VIAL 10 MG (14:15)
[2025-08-31 14:17] VITALS: BP 164/67; PULSE 74; RESP 18; O2SAT 97
--- NOTE | 2025-08-31 14:26 | EXP.HP ---
History of Present Illness *Admission Date: 08/31/25 *Reason for visit:: Lumbar RFA bilateral L4-5 and L5-S1 *History of present illness: This patient has lumbar spondylosis. She has had 2 successful medial branch blocks. She presents for lumbar RFA today. [facility] Disclaimer: The information contained in this section may have been updated after the patient was seen, as this information can be updated by other users. Medical History History of femur fracture CAD (coronary artery disease) Abnormal CT scan of lung Smoking greater than 30 pack years Lung nodule COPD mixed type Sleep apnea COPD (chronic obstructive pulmonary disease) Menopause Osteoporosis Osteoarthritis Carpal tunnel syndrome History of cataract Hyperlipidemia Hypertension Tobacco abuse Currently working on decreasing sugars per day, (average 15 at this time) Renal artery stenosis Suspected secondary hypertension Edema of left lower extremity Pain in left lower leg Claudication Surgical History History of back surgery History of tubal ligation History of intravascular stent placement History of right hip replacement History of colonoscopy History of carpal tunnel release History of left hip replacement Family History Brother Family history of myocardial infarction Family history of diabetes mellitus type II Mother Family history of myocardial infarction Other Family history of stroke Social History Smoking Status: Current every day smoker tobacco type: cigarettes packs per day: 1 smoking status start date: 1 pack per week alcohol intake: never substance use type: denies use current occupational status: retired Travel in the last 8 weeks?: None household members: spouse housing: house current occupational exposures/hazards: No caffeine: No Have you lived/traveled outside US in past 30 days?: No Contact w/someone who lives/traveled outside US past 30 days?: No Exposure to someone with infectious disease in past 14 days?: No Do you have a fever (greater than 100.4 F or 38 C)?: No Have you tested positive for COVID-19?: No Exposed to someone with COVID-19 in past 14 days?: No Do you have a sore throat?: No Do you have a cough?: No Do you have any weakness?: No Do you have any diarrhea?: No Are you experiencing any unusual bleeding?: No Do you have any muscle aches/pain?: No Do you have any abdominal pain?: No Are you experiencing loss of taste or smell?: No Other Medical History Have you received the Flu Vaccine for this season: No Have you received the Pneumonia Vaccine: No Review of Systems Review of Systems Review of systems:: pertinent systems reviewed and negative unless documented below Meds Home Medications and Allergies Home Medications ?Medication ?Instructions ?Recorded ?Confirmed ?Type aspirin 81 mg tablet,delayed 81 mg PO DAILY heart health 03/20/21 08/31/25 History release (Adult Low Dose Aspirin) calcium 600 mg (as 1 tab PO DAILY Supplement 03/20/21 08/31/25 History carbonate)-vitamin D3 5 mcg (200 unit) tablet (Calcium 600 + D(3)) fluticasone propionate 50 2 spray intranasal DAILY allergies 03/20/21 08/31/25 History mcg/actuation nasal spray,suspension clopidogrel 75 mg tablet 75 mg PO DAILY Blood thinner 09/14/22 08/31/25 History alendronate 70 mg tablet 70 mg PO WEEKLY . 02/17/23 08/31/25 History metoprolol succinate 100 mg 100 mg PO DAILY BLOOD PRESSURE 03/17/23 08/31/25 History tablet,extended release 24 hr albuterol sulfate 90 mcg/actuation 2 puff inhalation Q6H PRN 03/15/24 08/31/25 History aerosol inhaler Shortness Of Breath amlodipine 10 mg tablet 10 mg PO DAILY 03/15/24 08/31/25 History furosemide 40 mg tablet 20 mg PO DAILY 04/17/25 08/31/25 History atorvastatin 40 mg tablet 40 mg PO DAILY 05/15/25 08/31/25 History benazepril 40 mg tablet 40 mg PO DAILY 05/15/25 08/31/25 History duloxetine 60 mg capsule,delayed 60 mg PO DAILY 05/15/25 08/31/25 History release ipratropium 0.5 mg-albuterol 3 mg 3 ml inhalation Q8H 3 months #540 08/17/25 08/31/25 Rx (2.5 mg base)/3 mL nebulization mL soln megestrol 400 mg/10 mL (40 mg/mL) 800 mg PO DAILY 08/17/25 08/31/25 History oral suspension prednisone 20 mg tablet 20 mg PO DAILY 08/17/25 08/31/25 History New Prescriptions to Start Prescriptions: Allergies Allergy/AdvReac Type Severity Reaction Status Date / Time cefdinir (From Omnicef) Allergy Intermediate disoriented Verified 08/28/25 13:13 ibandronate sodium (From Allergy Intermediate BP high & Verified 08/28/25 13:13 Boniva) low moxifloxacin (From Avelox) Allergy Unknown Unknown Verified 08/28/25 13:13 allergy reaction Exam Data for Last 24 hours Vital signs and Labs for Last 24 Hours: Pulse Resp BP Pulse Ox O2 Del Method O2 Flow Rate 74 18 164/67 H 97 Nasal Cannula 2 08/31/25 14:17 08/31/25 14:17 08/31/25 14:17 08/31/25 14:17 08/31/25 14:17 08/31/25 14:17 I & O for Last 24 hours: Intake & Output 08/29/25 08/30/25 08/31/25 09/01/25 11:59 11:59 11:59 11:59 Weight 120 lb *Routine HEENT Exam Head: Present normocephalic Eye: Present EOMI ENT: Present mucous membranes moist *Routine Respiratory Exam Respiratory: Present CTA bilaterally *Routine Cardiovascular Exam Cardiovascular: Present RRR, Normal S1 and Normal S2 *Routine Abdominal Exam Abdominal: Present soft *Routine Rectal Exam Rectal:: deferred *Routine Genitalia Exam Genitalia:: deferred Assessment and Plan *Assessment and plan (1) Lumbar facet arthropathy: Status: Acute Category: Medical Code(s): M47.816 - Spondylosis without myelopathy or radiculopathy, lumbar region (2) Low back pain: Status: Acute Qualifiers: Chronicity: chronic Back pain laterality: bilateral Sciatica presence: without sciatica Qualified Code(s): M54.50 - Low back pain, unspecified; G89.29 - Other chronic pain Category: Medical Code(s): M54.50 - Low back pain, unspecified (3) Degenerative disc disease, lumbar: Status: Acute Qualifiers: Disc-related pain type: without discogenic back pain or lower extremity pain Qualified Code(s): M51.369 - Other intervertebral disc degeneration, lumbar region without mention of lumbar back pain or lower extremity pain Category: Medical Code(s): M51.369 - Other intervertebral disc degeneration, lumbar region without mention of lumbar back pain or lower extremity pain (4) Lumbar spondylosis: Status: Acute Category: Medical Code(s): M47.816 - Spondylosis without myelopathy or radiculopathy, lumbar region Plan Bilateral lumbar RFA L4-5 and L5-S1
--- NOTE | 2025-08-31 14:28 | EXP.PAIN.PRO ---
Procedure Date: 08/31/25 Time: 14:28 Anesthesiologist:: Randy Varela MD Complications:: None Pre-procedure Diagnosis:: Degenerative disease of lumbar spine with lumbar spondylosis and lumbar facet arthropathy Post-procedure Diagnosis:: Same Indications for Procedure:: This patient is a pleasant 75-year-old white female who we are treating for low back pain with lumbar spondylosis. She has had 2 successful medial branch blocks. She presents for lumbar RFA today. Procedure Details:: Lumbar RFA informed consent was obtained and the risk and benefits of the procedure was explained to the patient. Patient was placed prone on the procedure table. The patient was prepped and draped in sterile fashion. C-arm fluoroscopy was used to view the lumbar spine. The skin and subcutaneous tissues were anesthetized using lidocaine. I placed 20-gauge RF needles into the facet joints of L4-5 and L5-S1 bilaterally. We underwent sensory stimulation. There is good sensory stimulation at 0.8 V. We underwent motor stimulation. There is no motor stimulation at 3 V. We then anesthetized these levels with lidocaine and dexamethasone. I used a total of 20 mg dexamethasone for both levels and both sides. I then burned both levels of L4-5 and L5-S1 facet joint/medial branches bilaterally for 4 minutes at 80 ?C. Patient tolerated the procedure well with no complication. Plan and Disposition:: Will follow-up with this patient in 1 month. Will evaluate efficacy of his lumbar RFA.
[2025-08-31 14:38] VITALS: BP 139/60; PULSE 75; RESP 18; O2SAT 94
== END 2025-08-31 14:38 | disposition home or self-care (01) ==
PROVIDERS: PCP Family Medicine; Visit Provider Anesthesiology
DX: M51.369 Other intervertebral disc degeneration, lumbar region without mention of lumbar back pain or lower extremity pain (principal); M47.816 Spondylosis without myelopathy or radiculopathy, lumbar region; G89.29 Other chronic pain; I25.10 Atherosclerotic heart disease of native coronary artery without angina pectoris; J44.9 Chronic obstructive pulmonary disease, unspecified; E78.5 Hyperlipidemia, unspecified; M19.90 Unspecified osteoarthritis, unspecified site; M81.0 Age-related osteoporosis without current pathological fracture; I73.9 Peripheral vascular disease, unspecified; I10 Essential (primary) hypertension; F17.210 Nicotine dependence, cigarettes, uncomplicated; Z88.1 Allergy status to other antibiotic agents; Z88.8 Allergy status to other drugs, medicaments and biological substances; Z98.890 Other specified postprocedural states; Z79.02 Long term (current) use of antithrombotics/antiplatelets; Z79.51 Long term (current) use of inhaled steroids; Z79.52 Long term (current) use of systemic steroids; Z79.82 Long term (current) use of aspirin; Z79.83 Long term (current) use of bisphosphonates; Z79.899 Other long term (current) drug therapy
CPT/HCPCS: 64635; 64636; 99221; J0665; J1100; J2003; Q9966

== ENCOUNTER 2025-09-05 14:10 | Outpatient (CLI) | payer MEDICARE, OTHER, SELFPAY ==
--- OUTSIDE RECORDS SUMMARY | 2025-07-06 10:52 | XMS_ITS | Encounter Summary ---
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 Name Role Phone Tariq Betancourt MD Primary Care Provider Reason for Referral * Diagnostic Imaging (Routine) - Closed Specialty Diagnoses / Procedures Referred By Contac t Referred To Contact Diagnoses Dyspnea on exertion Dyslipidemia Peripheral arterial disease Other disorders of arteries, arterioles and capillaries in diseases classified elsewhere Procedures Duplex Carotid Ultrasound José Miguel Olguin MD [address] [facility] [place] [address] Phone: tel: fax: [address] [address] Phone: tel: Referral ID Status Reason Start Date Expiration Date Visits Re quested Visits Authorized [id number] Closed 06/18/2025 09/17/2026 1 1 Reason for Visit * Diagnostic Imaging (Routine) - Closed Specialty Diagnoses / Procedures Referred By Contac t Referred To Contact Diagnoses Dyspnea on exertion Dyslipidemia Peripheral arterial disease Other disorders of arteries, arterioles and capillaries in diseases classified elsewhere Procedures Duplex Carotid Ultrasound José Miguel Olguin MD [address] [facility] [place] [address] Phone: tel: fax: [address] [phone] Phone: tel: Referral ID Status Reason Start Date Expiration Date Visits Re quested Visits Authorized [id number] Closed 06/18/2025 09/17/2026 1 1 Encounter Details Date Type Department Care Team (Late st Contact Info) Description 07/06/2025 10:52 AM EDT - 07/06/2025 11:59 PM EDT Hospital Encounter [facility] [address] [place] [address] José Miguel Abdi MD [address] [place] [address] Dyspnea on exertion; Dyslipidemia; Peripheral arterial disease; Other disorders of arteries, arterioles and capillaries in diseases classified elsewhere Discharge Disposition: Home or Self Care Social History Tobacco Use Types Packs/Day Years [...] on file documented as of this encounter Medications at Time of Discharge albuterol sulfate HFA 108 (90 Base) MCG/ACT inhaler Inhale 2 puffs Every 6 (Six) Hours As Needed. 11/20/2024 alendronate (FOSAMAX) 70 MG tablet Take 1 tablet by mouth 1 (One) Time Per Week. 02/16/2025 amLODIPine (NORVASC) 10 MG tablet Take 1 tablet by mouth Daily. aspirin 81 MG EC tablet Take 1 tablet by mouth. atorvastatin (LIPITOR) 40 MG tablet Take 1 tablet by mouth. Benazepril HCl (LOTENSIN PO) Take 40 mg by mouth Daily. Calcium Citrate-Vitamin D3 (CITRACAL) 315-6.25 MG-MCG tablet tablet Take 1 tablet by mouth Daily. clopidogrel (PLAVIX) 75 MG tablet Take 1 tablet by mouth Daily. 02/16/2025 DULoxetine (CYMBALTA) 60 MG capsule Take 1 capsule by mouth Daily. 02/16/2025 FeroSul 325 (65 Fe) MG tablet Take 1 tablet by mouth Daily. 01/01/2025 fluticasone (FLONASE) 50 MCG/ACT nasal spray Administer 2 sprays into the nostril(s) as directed by provider Daily. 02/16/2025 furosemide (LASIX) 40 MG tablet Take 0.5 tablets by mouth Daily. 02/16/2025 loratadine (CLARITIN) 10 MG tablet Take 1 tablet by mouth Daily. Melatonin 3 MG capsule Take 1 capsule by mouth every night at bedtime. metoprolol succinate XL (TOPROL-XL) 100 MG 24 hr tablet Take 1 tablet by mouth Daily. 02/16/2025 documented as of this encounter Plan of Treatment Upcoming Encounters Date Type Department Care Team (Late st Contact Info) Description 06/24/2026 10:30 AM EDT Office Visit [facility] [address] [place] [address] José Miguel Abdi MD [address] [place] [address] documented as of this encounter Procedures Procedure Name Priority Date/Time Associated Diagnosis Comments DUPLEX CAROTID BILATERAL CAR - PERFORMED PROCEDURE Routine 07/06/2025 11:15 AM EDT Dyspnea on exertion Dyslipidemia Peripheral arterial disease Other disorders of arteries, arterioles and capillaries in diseases classified elsewhere documented in this encounter Results * DUPLEX CAROTID BILATERAL CAR - PERFORMED PROCEDURE (07/06/2025 11:15 AM EDT) Prox CCA PSV 52.8 cm/sec Prox CCA EDV 5.7 cm/sec Right Mid CCA PSV 59.4 cm/sec right Mid CCA EDV 9.5 cm/sec Dist CCA PSV 52.4 cm/sec Dist CCA EDV 9.5 cm/sec Prox ICA PSV 53.4 cm/sec Prox ICA EDV 10.5 cm/sec Mid ICA PSV 73.4 cm/sec Mid ICA EDV 16.6 cm/sec Dist ICA PSV 80.8 cm/sec Dist ICA EDV 14.8 cm/sec Prox ECA PSV 78.8 cm/sec Prox ECA EDV 6.9 cm/sec Vertebral A PSV 45.0 cm/sec Vertebral A EDV 10.3 cm/sec Prox CCA PSV 60.7 cm/sec Prox CCA EDV 9.5 cm/sec left Mid CCA PSV 57.6 cm/sec left Mid CCA EDV 11.9 cm/sec Dist CCA PSV 62.6 cm/sec Dist CCA EDV 10.9 cm/sec Prox ICA PSV 190.4 cm/sec Prox ICA EDV 22.9 cm/sec Mid ICA PSV 81.1 cm/sec Mid ICA EDV 16.6 cm/sec Dist ICA PSV 108.5 cm/sec Dist ICA EDV 21.7 cm/sec Prox ECA PSV 125.1 cm/sec Prox ECA EDV 6.9 cm/sec Vertebral A PSV 55.4 cm/sec Vertebral A EDV 9.7 cm/sec Prox SCLA PSV 126.9 cm/sec ICA/CCA ratio 1.40 Prox SCLA PSV 188.1 cm/sec ICA/CCA ratio 3.04 Anatomical Region Laterality Modality Ultrasound Narrative 07/06/2025 4:47 PM EDT Right internal carotid artery demonstrates a less than 50% stenosis. Antegrade right vertebral flow. Left internal carotid artery demonstrates a 50-69% stenosis. Antegrade left vertebral flow. Study Impression Right ICA: Imaging indicates <50% stenosis. Left ICA: Imaging indicates 50-69% stenosis. Study Findings Right CCA Prox: No plaque visualized. Right CCA Mid: No plaque visualized. Right CCA Dist: Heterogeneous plaque present. Right Carotid Bulb: Heterogeneous plaque present. Right ICA Prox: Heterogeneous plaque present. Right ICA Mid: No plaque visualized. Right ICA Dist: No plaque visualized. Right ECA: No plaque visualized. Right Vertebral: Antegrade flow noted. Left CCA Prox: Heterogeneous plaque present. Left CCA Mid: Heterogeneous plaque present. Left CCA Dist: Heterogeneous plaque present. Left Carotid Bulb: Heterogeneous plaque present. Left ICA Prox: Heterogeneous plaque present. Left ICA Mid: No plaque visualized. Left ICA Dist: No plaque visualized. Left ECA: Heterogeneous plaque present. Left Vertebral: Antegrade flow noted. Additional Study Details The study is technically difficult for diagnosis. us José Miguel Abdi MD CV VASCULAR ORDERABLES Final R esult documented in this encounter Visit Diagnoses Diagnosis Dyspnea on exertion Other dyspnea and respiratory abnormality Dyslipidemia Other and unspecified hyperlipidemia Peripheral arterial disease Unspecified peripheral vascular disease Other disorders of arteries, arterioles and capillaries in diseases classified elsewhere documented in this encounter Care Teams Toeing Stockings Relationship Specialty Start Date End Date Tariq Betancourt MD [facility] [address] [facility] [address] [place] [id number] PCP - General Family Medicine 03/06/25 documented as of this encounter
--- NOTE | 2025-09-05 14:10 | PC.NURSE ---
1410-collected labs via venipuncuture stick in right ac with butterfly needle;pt to d/c home
--- OUTSIDE RECORDS SUMMARY | 2025-09-05 14:14 | XMS_ITS | Clinical Summary ---
Author Organization [facility] Address [address] [place] [address] Care Team Providers Care Relay Motorman Name Role Phone Tariq Bet[place]ourt MD Primary Care Provider [phone] Stan Leroy MD Unavailable [phone] Allergies No known active allergies Medications [...] Noted Date Diagnosed Date Anemia, unspecified 04/13/2024 Encounters Date Type Department Care Team Description 08/30/2025 Orders Only [facility] at [address] [id number] Stan Leroy MD from Last 3 Months Family History [...] [facility]-Depression Screening 1950 [facility]-Hepatitis C Screening 1950 [facility]-Medicare Annual Wellness (AWV) 1950 [facility]-/Child/Adol SDOH Screenings 1950 [facility]- SDOH Screenings 1966 [facility]-Adult SDOH Screenings 1966 [facility]-DTaP,Tdap,and Td Vaccines (1 - Tdap) 1967 [facility]-Zoster Vaccines (1 of 2) 1998 [facility]-RSV Vaccine: 60+ Years or (1 - 1-dose 75+ series) 2023 QZA-ZADOE-11 Vaccine (6 - season) 2025 08/25/2022, 06/18/2022, 09/11/2021, Additional history exists [facility]-Influenza [...] on patient's age to complete this topic Procedures Procedure Name Priority Date/Time Associated Diagnosis Comments UREA NITROGEN, PLASMA Routine 08/30/2025 3:53 PM EDT CREATININE, PLASMA Routine 08/30/2025 3:53 PM EDT GFR Routine 08/30/2025 3:53 PM EDT from Last 3 Months Results * GFR (08/30/2025 3:53 PM EDT) Blood us Stan Leroy MD LAB BLOOD ORDERABLES Final Res ult * Creatinine, Plasma (08/30/2025 3:53 PM EDT) Blood Venous blood specimen / Unknown us Stan Leroy MD LAB BLOOD ORDERABLES Final Res ult * Urea Nitrogen, Plasma (08/30/2025 3:53 PM EDT) Blood Venous blood specimen / Unknown Stan Leroy MD LAB BLOOD ORDERABLES Final Res ult from Last 3 Months Insurance MEDICARE [facility] Care Teams Relay Motorman Relationship Specialty Start Date End Date Tariq Betancourt MD [address] [facility] [address] [place] [address] PCP - General 03/21/21 Stan Leroy MD [address] [place] [address] Medical Oncologist Hematology and Oncology 04/10/24 BAYLEE Henao [address] [place] [address] Referring Physician Orthopaedic Surgery 04/07/24
--- OUTSIDE RECORDS SUMMARY | 2025-09-05 14:15 | XMS_ITS | Clinical Summary ---
Author Organization [employer] ([place], [place], [place], [place]) Address [address] [place] [address] Care Team Providers Care Center Medical And Lab Director Name Role Phone Ezequiel Houston MD Primary [...] the past 12 months, has t he [employer], gas, oil, or water [employer] threatened to shut off services in your [...] your living situation today? I have a [facility] place to live 05/02/2024 Think about [...] Do you speak a language other than [place] at [facility]? No 05/02/2024 Do you want help with [...] or (1 - 1-dose 75+ series) 2023 Falls Risk Screening 11/08/2024 Tobacco Cessation Counseling and Screening (12+) 05/03/2025 05/03/2024 COVID-19 VACCINE (6 - 2024-2 6 season) 2025 08/25/2022, 06/18/2022, 09/11/2021, Additional history exists Influenza Vaccine (#1) 2025 , 08/15/2021, 08/23/2020, Additional history exists Pneumococcal 50+ years Completed 08/26/2023, 2016 Insurance [employer] [id number] [place] [address] [address] Advance Directives For more information, please contact: [phone] * Full Code (Latest Code Status on File) Date Activated Date Inactivated Comments 05/02/2024 8:35 PM 05/03/2024 7:01 PM -Attempt Res uscitation if person has no pulse and is not breathing. -If no pulse or not breathing attempt CPR/CODE. -Call Rapid Response if patient is in distress. Care Teams Center Medical And Lab Director Relationship Specialty Start Date End Date Ezequiel Houston MD PCP - General Orthopedic Surgery 05/02/24
--- OUTSIDE RECORDS SUMMARY | 2025-09-05 14:15 | XMS_ITS | Encounter Summary ---
Author Organization [facility] ystem Address [address] [place] [address] Care Team Providers Care Septic Technician Name Role Phone Tariq Betancourt MD Primary Care Provider Encounter Details Date Type Department Care Team (Late st Contact Info) Description 07/06/2025 Results Follow-Up [facility] [address] [facility] [address] [place] [address] José Miguel Abdi MD [address] [place] [address] Social History Tobacco Use Types Packs/Day Years [...] on file documented as of this encounter Plan of Treatment Upcoming Encounters Date Type Department Care Team (Late st Contact Info) Description 06/24/2026 10:30 AM EDT Office Visit [facility] [address] [facility] [address] [place] [address] José Miguel Abdi MD [address] [facility] [address] [place] [address] documented as of this encounter Visit Diagnoses Not on filedocumented in this encounter Care Teams Septic Technician Relationship Specialty Start Date End Date Tariq Betancourt MD [address] [facility] [address] [place] [address] PCP - General Family Medicine 03/06/25 documented as of this encounter
--- OUTSIDE RECORDS SUMMARY | 2025-09-05 14:15 | XMS_ITS | Referral Summary ---
Author Organization [employer] ([place], [place], [place], [place]) Address [address] [place] [address] Care Team Providers Care Spoilage Worker Name Role Phone Ezequiel Houston MD Primary [...] the past 12 months, has t he [employer], gas, oil, or water [employer] threatened to shut off services in your [...] your living situation today? I have a [facility] place to live 05/02/2024 Think about [...] Do you speak a language other than Frisian at [facility]? No 05/02/2024 Do you want help with [...] Plan of Treatment Not on file Insurance [place] [id number] MEDICARE PART A B Advance Directives For more information, please contact: [phone] * Full Code (Latest Code Status on File) Date Activated Date Inactivated Comments 05/02/2024 8:35 PM 05/03/2024 7:01 PM -Attempt Res uscitation if person has no pulse and is not breathing. -If no pulse or not breathing attempt CPR/CODE. -Call Rapid Response if patient is in distress. Care Teams Spoilage Worker Relationship Specialty Start Date End Date Ezequiel Houston MD PCP - General Orthopedic Surgery 05/02/24
--- OUTSIDE RECORDS SUMMARY | 2025-09-05 14:15 | XMS_ITS | Encounter Summary ---
Author Organization Healthcare Address [address] [place] [address] Care Team Providers Care Ict Sales Assistant Name Role Phone Tariq Betancourt MD Primary Care Provider [phone] Stan Leroy MD Unavailable [phone] Encounter Details Date Type Department Care Team (Late st Contact Info) Description 08/30/2025 Orders Only [facility] [address] [place] [address] Stan Leroy MD [address] [address] Social History Tobacco Use Types Packs/Day Years Used Date Smoking Tobacco: Every Day Cigarettes Passive Smoke Exposure: Current Smokeless Tobacco: Never Comments:15 cigarettes a day . Alcohol Use Standard Drinks/Week Comments Yes 0 (1 standard drink = 0.6 oz pur e alcohol) Wine every once in awhile. Comments Unknown Sex and Gender Information Value Date Recorded Sex Assigned at Not on file Legal Sex Female 6:07 PM EDT Gender Identity Not on file Sexual Orientation Not on file documented as of this encounter Plan of Treatment Not on file documented as of this encounter Procedures Procedure Name Priority Date/Time Associated Diagnosis Comments GFR Routine 08/30/2025 3:53 PM EDT CREATININE, PLASMA Routine 08/30/2025 3:53 PM EDT UREA NITROGEN, PLASMA Routine 08/30/2025 3:53 PM EDT documented in this encounter Results * Urea Nitrogen, Plasma (08/30/2025 3:53 PM EDT) Blood Venous blood specimen / Unknown Stan Leroy MD LAB BLOOD ORDERABLES Final Res ult * Creatinine, Plasma (08/30/2025 3:53 PM EDT) Blood Venous blood specimen / Unknown Stan Leroy MD LAB BLOOD ORDERABLES Final Res ult * GFR (08/30/2025 3:53 PM EDT) Blood Result [facility] Stan Leroy MD LAB BLOOD ORDERABLES Final Res ult documented in this encounter Visit Diagnoses Not on filedocumented in this encounter Care Teams Ict Sales Assistant Relationship Specialty Start Date End Date Tariq Betancourt MD [address] [facility] [address] [place] [address] PCP - General 03/21/21 Stan Leroy MD [address] [place] [address] Medical Oncologist Hematology and Oncology 04/10/24 BAYLEE Henao [address] [place], [place] [id number] Referring Physician Orthopaedic Surgery 04/07/24 documented as of this encounter
--- OUTSIDE RECORDS SUMMARY | 2025-09-05 14:15 | XMS_ITS | Clinical Summary ---
Author Organization [facility] Address [address] [place] [address] Care Team Providers Care Insulation Helper Name Role Phone Tariq Betancourt MD Primary [...] Active Problems Problem Noted Date Diagnosed Date Angina pectoris 06/18/2025 Dyspnea on exertion 06/15/2025 Peripheral arterial disease 06/15/2025 Lower extremity edema 06/15/2025 Essential hypertension 06/15/2025 Dyslipidemia 06/15/2025 Abnormal nuclear stress test 03/13/2025 Encounters Date Type Department Care Team Description 07/06/2025 10:52 AM EDT - 07/06/2025 11:59 PM EDT Hospital Encounter [facility] NONINVASIVE LAB [address] [facility] 3[address] [place] [address] José Miguel Abdi MD Dyspnea on exertion; Dyslipidemia; Peripheral arterial disease; Other disorders of arteries, arterioles and capillaries in diseases classified elsewhere Discharge Disposition: Home or Self Care 07/06/2025 Results Follow-Up [facility] [address] [facility] [address] [place] [address] José Miguel Abdi MD 07/06/2025 Travel 06/18/2025 10:00 AM EDT Office Visit [facility] [address] [facility] [address] [place] [address] José Miguel Abdi MD Peripheral arterial disease (Primary Dx); Angina pectoris; Dyspnea on exertion; Essential hypertension; Dyslipidemia 06/18/2025 Travel 06/12/2025 Telephone [facility] [address] [facility] [address] [place] [address] Mia Patiño APRN from Last 3 Months Family History Medical [...] Sign Reading Time Taken Comments Blood Pressure 118/60 06/18/2025 9:30 AM EDT Pulse 88 06/18/2025 9:30 AM EDT Temperature 35.8 C (96.5 F) 03/16/2025 6:39 AM EDT Respiratory Rate 12 03/16/2025 8:33 AM EDT Oxygen Saturation 94% 06/18/2025 9:30 AM EDT Inhaled Oxygen Concentration - - Weight 51.8 kg (114 lb 3.2 oz) 06/18/2025 9:30 A M EDT Height 157.5 cm (5' 2 ) 06/18/2025 9:30 AM EDT Body Mass Index 20.89 06/18/2025 9:30 AM EDT Plan of Treatment Upcoming Encounters Date Type Department Care Team (Late st Contact Info) Description 06/24/2026 10:30 AM EDT Office Visit [facility] [address] [place] [address] José Miguel Abdi MD [address] [place] [address] Health Maintenance Due Date Last Done Comments DXA SCAN 1948 TDAP/TD VACCINES (1 - Tdap) 1967 ZOSTER VACCINE (1 of 2) 1998 RSV Vaccine - Adults (1 - 1- dose 75+ series) 2023 ANNUAL WELLNESS VISIT 09/15/2024 HEPATITIS C SCREENING 09/15/2024 INFLUENZA VACCINE 06/08/2025 08/14/2022, , 08/23/2020, Additional history exists COVID-19 Vaccine (5 - Modern a risk season) 2025 10/03/2024, 08/25/2022, 06/18/2022, Additional history exists Pneumococcal Vaccine 50+ Completed 08/26/2023, 12/2016 Procedures Procedure Name Priority Date/Time Associated Diagnosis Comments DUPLEX CAROTID BILATERAL CAR - PERFORMED PROCEDURE Routine 07/06/2025 11:15 AM EDT Dyspnea on exertion Dyslipidemia Peripheral arterial disease Other disorders of arteries, arterioles and capillaries in diseases classified elsewhere from Last 3 Months Results * DUPLEX CAROTID BILATERAL CAR - [...] The study is technically difficult for diagnosis. José Miguel Abdi MD CV VASCULAR ORDERABLES Final R esult from Last [address] [place] [address] MEDICARE A & B Member Subscriber Plan / Payer (Ef fective 2013-Present) Name:Antonia Pickens Member ID:[id number] Relation to Subscriber:Self Name:Atnonia Pickens Subscriber ID:[id number] Payer ID:[id number] Group ID:Not on file Type:Not on file Address: [address] Care Teams Insulation Helper Relationship Specialty Start Date End Date Tariq Betancourt MD [address] [facility] [address] [place] [address] PCP - General Family Medicine 03/06/25
--- OUTSIDE RECORDS SUMMARY | 2025-09-05 14:15 | XMS_ITS | Encounter Summary ---
Author Organization [facility] ystem Address [address] [place] [address] Care Team Providers Care Arts And Crafts Instructor Name Role Phone Tariq Betancourt MD Primary Care Provider Encounter Details Date Type Department Care Team (Late st Contact Info) Description 06/12/2025 Telephone [email or web address]Y [address] [facility] [address] [place] [address] Mia Patiño APRN [address] [facility] [address] [place] [address] Social History Tobacco Use Types Packs/Day Years [...] Description 06/24/2026 10:30 AM EDT Office [facility] C[facility] [address] [facility] [address] [place] [address] José Miguel Abdi MD [address] [facility] [address] [place] [address] documented as of this encounter Visit Diagnoses Not on filedocumented in this encounter Care Teams Arts And Crafts Instructor Relationship Specialty Start Date End Date Tariq Betancourt MD [address] [facility] [address] [place] [address] PCP - General Family Medicine 03/06/25 documented as of this encounter
[2025-09-05 14:35] LABS: Hematocrit 31.3 % (37.0-47.0); Hemoglobin 9.7 g/dL (12.2-16.2); Immature Granulocytes % 1.0 %; Mean Corpuscular HGB Conc 31.0 g/dL (31.8-35.4); Mean Corpuscular Hemoglobin 29.1 pg (27.0-31.2); Mean Corpuscular Volume 94.0 fl (81-99); Nucleated Red Blood Cells % 0 %; Platelet Count 305 K/mm3 (142-424); Red Blood Count 3.33 M/mm3 (4.20-5.40); Red Cell Distribution Width-SD 44.7 fL; White Blood Count 9.6 K/mm3 (4.8-10.8)
[2025-09-05 14:50] LABS: Alanine Aminotransferase 25 U/L (12-78); Albumin Level 3.1 g/dl (3.5-5.0); Albumin/Globulin Ratio 0.8 (1.1-1.8); Alkaline Phosphatase 65 U/L (38-126); Anion Gap 8.8 mEq/L (5-15); Aspartate Amino Transferase 30 U/L (14-36); Bilirubin,Total 0.5 mg/dl (0.2-1.3); Blood Urea Nitrogen 14 mg/dl (7-17); Calcium 8.6 mg/dl (8.4-10.2); Carbon Dioxide 31 mmol/L (22.0-30.0); Chloride 89 mmol/L (98-107); Creatinine,Serum 0.60 mg/dl (0.52-1.04); Estimated Glomerular Filt Rate 97 ml/min (>60); GFR (African American) 117 ML/MIN (>60); Globulin 3.9 g/dL (1.3-3.2); Glucose 168 mg/dl (74-100); Potassium 3.8 mmoL/L (3.5-5.1); Sodium 125 mmol/L (136-145); Total Protein,Serum 7.0 g/dl (6.3-8.2)
[2025-09-05 15:08] LABS: T4 (Thyroxine) 7.4 ug/dl (5.53-11.0)
[2025-09-05 15:22] LABS: Thyroid Stimulating Hormone 1.98 uIU/mL (0.465-4.68)
[2025-09-05 15:37] LABS: Total Cells Counted 100
[2025-09-05 15:38] LABS: RBC Morphology Normal
[2025-09-06 10:43] LABS: Iron 52 ug/dL (37-170)
[2025-09-06 10:52] LABS: Total Iron Binding Capacity 444 ug/dL (265-497)
[2025-09-06 11:21] LABS: Ferritin 17.6 ng/ml (11.1-264)
[2025-09-06 11:23] LABS: Reticulocyte % (Auto) 2.0 % (0.9-3.2)
[2025-09-06 11:35] LABS: Vitamin B12 193 pg/mL (239-931)
== END 2025-09-05 23:59 | disposition home or self-care (01) ==
LOC: LAB 14:12 → INF 15:09
PROVIDERS: Internal Medicine Medical Oncology; PCP Family Medicine; Visit Provider Internal Medicine Gastroenterology
DX: C34.12 Malignant neoplasm of upper lobe, left bronchus or lung (principal); R93.89 Abnormal findings on diagnostic imaging of other specified body structures
CPT/HCPCS: 36415; 80053; 82607; 82728; 83540; 83550; 83615; 84436; 84443; 85007; 85025; 85044; 86880

== ENCOUNTER 2025-09-14 20:49 | Inpatient (IN) | payer MEDICARE, OTHER, SELFPAY ==
--- OUTSIDE RECORDS SUMMARY | 2024-06-20 08:45 | XMS_ITS ---
Author Organization [facility] Address [address] [facility] [address] [place] [phone] Care Team Providers Care Supervisor Purification Name Role Phone Keeley Betancourt Primary Care Provider Allergies Allergen (clinical drug ingredient) Drug/Non Drug Allergy documented on EMR Reaction Allergy Type Onset Date Status cefdinir Cefdinir disoriented Drug Allergy Activ e ibandronic acid Ibandronic Acid BP high and low Drug Allergy Active moxifloxacin Moxifloxacin GI Drug Allergy A ctive Reason For Referral Reason at [facility] re[facility] Diagnosis 1 S/P hip hemiarthropl asty (Z96.649) Referral Organization [facility]ie Referring Provider First Name Keeley Gunn Referring Provider Last Name Serafin Referring Provider Speciality Family Pra ctice Referred Provider Physical Therapy, . Referred Provider Specialty Physical The rapist General Notes Nanci James 06/21/20 24 9:22:13 AM > faxed to scheduling at [facility] Referral Priority Routine REASON FOR VISIT [...] 06/20/2024 Encounters Encounter Location Date Provider Diagnosis [facility] [address] [facility] [address] [place] [phone] 06/20/2024 R Luis A Betancourt S/P hip [...] Referrals Referral Date Details 06/20/2024 06/20/2024, at [facility] location for post op hip replacement rehab, . Physical Therapy Next Appt Details Follow Up: as scheduled, [place] son: Provider Name:Keeley Giordano, 02/19/2026 10:45:00 AM, [address], [address], [place], [place], [phone], Progress Notes * NIHARIKA NARVAEZDOB:1950 (75 yo F)Acc No.[id number]:06/20/2024 Progress Notes Patient: NIHARIKA VILLARREAL Provider: Keeley Betancourt M.D. :1950 A ge:73 Y S ex:Female Date:06/20/2024 Address:[address] [place] [address], [place], [id number] Subjective: * Chief Complaints: * 1 . [...] to return her oxygen equipment to the [email or web address]. * ROS: D ERMATOLOGY: no R radha. [...] * Hospitalization/Major Diagno stic Procedure: Iveth carrion- [facility] in [place] 11/2014. * Family History: F ather: , [...] * Images: Billing Information: * Visit Code: 65527 Office Visit, Est Pt., Level 3. * Procedure Codes: 97030 PULSE OX. * Electronic signature of Keeley Betancourt MD on 09/15/2025 at 08:36 PM EST Sign off status: Pending * Provider: Keeley Betancourt M.D. Date: 0 06/20/2024 Generated for Nithya linares/Lela/eTransmitting on: 1 11/15/2024 08:36 PM EST History and Physical Notes * [...] to return her oxygen equipment to the [email or web address] company. Examination Category Sub-Category Detail Notes Category Not es General Examination Heart: RSR Lungs: clear to auscultatio n Extremities: no leg edema. Ambul ates slowly with a straight cane General Appearance: NAD Consultation Request Notes Referral Date Referring Provider Referred Provider Not es 06/20/2024 Keeley Betancourt Physical Therapy, . at [facility] location for post op hip replacement rehab
--- OUTSIDE RECORDS SUMMARY | 2024-06-20 08:45 | XMS_ITS ---
Author [facility] Address [address] [facility] [address] [place] [phone] Care Team Providers Care Sliver Lapper Name Role Phone Keeley Betancourt Primary Care Provider Allergies Allergen (clinical drug ingredient) Drug/Non Drug Allergy documented on EMR Reaction Allergy Type Onset Date Status cefdinir Cefdinir disoriented Drug Allergy Activ e ibandronic acid Ibandronic Acid BP high and low Drug Allergy Active moxifloxacin Moxifloxacin GI Drug Allergy A ctive Reason For Referral Reason at [facility] re[facility] Diagnosis 1 S/P hip hemiarthropl asty (Z96.649) Referral Organization [facility] Referring Provider First Name Keeley Gunn Referring Provider Last Name Serafin Referring Provider Speciality Family Pra ctice Referred Provider Physical Therapy, . Referred Provider Specialty Physical The rapist General Notes Nanci James 06/21/20 24 9:22:13 AM > faxed to scheduling at [facility] Referral Priority Routine REASON FOR VISIT f/u [...] 06/20/2024 Encounters Encounter Location Date Provider Diagnosis [facility] [facility] [address] [facility] [address] [place] [phone] 06/20/2024 R Luis A Betancourt S/P hip [...] Referrals Referral Date Details 06/20/2024 06/20/2024, at [facility] location for post op hip replacement rehab, . Physical Therapy Next Appt Details Follow Up: as scheduled, [place] son: Provider Name:Keeley Giordano, 02/19/2026 10:45:00 AM, [address], [address], [place], [place], [phone], Progress Notes * NIHARIKA NARVAEZDOB:1950 (75 yo F)Acc No.[id number]:06/20/2024 Progress Notes Patient: NIHARIKA VILLARREAL Provider: Keeley Betancourt M.D. :1950 A ge:73 Y S ex:Female Date:06/20/2024 Address:[address] [place] [address], [place], [id number] Subjective: * Chief Complaints: * 1 . [...] to return her oxygen equipment to the [employer]. * ROS: D ERMATOLOGY: no R radha. [...] * Hospitalization/Major Diagno stic Procedure: Iveth carrion- [facility] in [place] 11/2014. * Family [...] * Images: Billing Information: * Visit Code: 30245 Office Visit, Est Pt., Level 3. * Procedure Codes: 01373 PULSE OX. * Electronic signature of Keeley Betancourt MD on 09/17/2025 at 08:53 AM EST Sign off status: Pending * Provider: Keeley Betancourt M.D. Date: 0 06/20/2024 Generated for Nithya linares/Lela/eTransmitting on: 1 11/17/2024 08:53 AM EST History and Physical Notes * HPI [...] to return her oxygen equipment to the [employer]. Examination Category Sub-Category Detail Notes Category Not es General Examination Heart: RSR Lungs: clear to auscultatio n Extremities: no leg edema. Ambul ates slowly with a straight cane General Appearance: NAD Consultation Request Notes Referral Date Referring Provider Referred Provider Not es 06/20/2024 Keeley Betancourt Physical Therapy, . at [facility] location for post op hip replacement rehab
--- OUTSIDE RECORDS SUMMARY | 2024-08-24 05:00 | XMS_ITS ---
Author Organization [facility] Address [address] [facility] [address] [place] [phone] Care Team Providers Care Clay Maker Name Role Phone Keeley Betancourt Primary Care Provider [phone] Allergies Allergen (clinical drug ingredient) Drug/Non Drug [...] Interpretation:304 Performing Lab: Notes/Report: Test performed by [employer], [email or web address] [facility] , [address], [place] [address] Gamal Haywood MD, Take Out Waiter CLIA: [id number] Vitamin B12 103 675-1305 pg/mL P-Comprehensive Metabolic Pa yoseph (CMP) Reviewed date:08/28/2024 09:43:33 PM Interpretation:Na 131, cl 92, gluc 100 Performing Lab: Notes/Report: Test performed by [facility] [address] [place] [address] , [address], [place] [address] Gamal Haywood MD, Take Out Waiter CLIA: [id number] Sodium 131 135-145 mmol/L Potassium 4.0 3.5-5.3 [...] Interpretation:17 Performing Lab: Notes/Report: Test performed by [employer] [address] [place] [address] , [address], [place] [address] Gamal Haywood MD, Take Out Waiter CLIA: [id number] Iron 17 37-145 ug/dL P-Lipid Panel Reviewed date:08/28/2024 09:43:33 PM Interpretation:Normal Performing Lab: Notes/Report: Test performed by [facility] [address] [place] [address] , [address], [place] [address] Gamal Haywood MD, Take Out Waiter CLIA: [id number] Cholesterol 162 <200 mg/dL Triglycerides 142 <150 [...] Interpretation:118 Performing Lab: Notes/Report: Test performed by [employer], [email or web address] [address] [place] [address] , [address], [place] [address] Gamal Haywood MD, Take Out Waiter CLIA: [id number] Vitamin D 25-Hydroxy 118.0 30.0-100.0 ng/mL Interpretation [...] lesions on face . Would prefer seeing hedge fund accountant in [facility] Diagnosis 1 AK (actinic keratosi s) (L57.0) Referral Organization [facility] Referring Provider First Name Keeley Gunn Referring Provider Last Name Serafin Referring Provider Speciality Family Jae price Referred Provider Dermatology, . Referred Provider Specialty Dermatology General Notes Nanci James 024 1:54:17 PM > referral submitted via [facility] website, Nanci James 08/24/2024 2:58:20 PM > appt 08/25/2024 at 10:00am in [facility] Referral Priority Routine REASON FOR VISIT 6 [...] Status W/U Status Risk Notes Problem Anemia (575681870) Anemia (D64.9) Active confirmed Vital Signs Weight 120.4 lbs 08/24/2024 Blood pressure systolic 136 mm Hg 08/24/20 24 Blood pressure diastolic 60 mm Hg 024 Heart Rate 70 /min 08/24/2024 Height 63.50 in 08/24/2024 BMI 20.99 kg/m2 08/24/2024 Encounters Encounter Location Date Provider Diagnosis [facility] [address] [facility] [address] [place] [id number] 08/24/2024 Keeley Betancourt Essential hypertensi on I10 [...] les ions on face. Would prefer seeing hedge fund accountant in [facility], . Dermatology Next Appt Details Follow Up: 6 Months, Reason: Provider Name:Keeley Giordano, 02/19/2026 10:45:00 AM, [address] [facility] [address] [facility], [address] , [place], [place], [id number], Progress Notes * LYNDAKESHANIHARIKADOB:1950 (75 yo F)Acc No.[id number]:08/24/2024 Progress Notes Patient: NIHARIKA VILLARREAL Provider: Keeley Betancourt M.D. :1950 A ge:74 Y S ex:Female Date:08/24/2024 Address:[address] [place] [phone] Subjective: * Chief Complaints: * 1 . [...] * Hospitalization/Major Diagno stic Procedure: Iveth carrion- [facility] in [place] 11/2014. * Family History: F ather: , [...] 08/24/2024 2:05 :00 PM > faxed to [facility] Lori Davenport 08/29/2024 11:34:40 AM > [...] AM)?304* Value Reference Range V itamin B12 084 180-2890 - pg/mL * Keeley Betancourt 08/28/2024 9:43:21 PM >See phone encounter 9.?AK (actinic keratosis)? Referral To:. Dermatology??Dermatology ?Reason:skin lesions on face. Would prefer seeing hedge fund accountant in [facility] 10.?Screening for breast cancer?Imaging: Mammogram (Performed Date - 09/13/2024)?Negative, annual f/u* Value Reference Range r esult Negative, annual f/u * Nanci James 08/24/2024 2:05 :11 PM > faxed to [facility] Lori Davenport 08/29/2024 11:34:56 AM > 09/13 @ 3:15WuIsa harrison 09/18/2024 4:06:24 PM > pt informed of results * Immunizations: Fluzone High Dose (65yr and older) : 0.5 mL (Route: Intramuscular) given by Isa Araiza on Left Deltoid (Encounter for immunization) * Procedure Codes: 9 [address] [place], [address] CBC WITH AUTO DIFF, 35056 VENIPUNCT, ROUTINE* * Follow Up: 6 Months * Images: Billing Information: * Visit Code: 11089 Office Visit, Est Pt., Level 4. * Procedure Codes: [address] [place]. [address] CBC WITH AUTO DIFF. 95786 VENIPUNCT, ROUTINE*. * Electronic signature of Keeley Betancourt MD on 09/15/2025 at 08:34 PM EST Sign off status: Pending * Provider: Keeley Betancourt M.D. Date: Generated for Johni milagros/Lela/eTransmitting on: 11/15/2024 08:34 PM EST History and Physical Notes * [...] les ions on face. Would prefer seeing hedge fund accountant in [facility]
--- OUTSIDE RECORDS SUMMARY | 2024-08-24 05:00 | XMS_ITS ---
Author Organization [facility] Address [address] [facility] [address] [place] [phone] Care Team Providers Care Radiologic Technologist Chief Name Role Phone Keeley Betancourt Primary Care [...] Interpretation:304 Performing Lab: Notes/Report: Test performed by [employer] [facility] , [address], [place] [address] Gamal Haywood MD, Tool Marker CLIA: [id number] Vitamin B12 158 884-4644 pg/mL P-Comprehensive Metabolic Pa yoseph (CMP) Reviewed date:08/28/2024 09:43:33 PM Interpretation:Na 131, cl 92, gluc 100 Performing Lab: Notes/Report: Test performed by [employer] [address] [place] [address] , [address], [place] [address] Gamal Haywood MD, Tool Marker CLIA: [id number] Sodium 131 135-145 mmol/L Potassium 4.0 3.5-5.3 [...] Interpretation:17 Performing Lab: Notes/Report: Test performed by [employer] [address] [place] [address] , [address], [place] [address] Gamal Haywood MD, Tool Marker CLIA: [id number] Iron 17 37-145 ug/dL P-Lipid Panel Reviewed date:08/28/2024 09:43:33 PM Interpretation:Normal Performing Lab: Notes/Report: Test performed by [employer] [address] [place] [address] , [address], [place] [address] Gamal Haywood MD, Tool Marker CLIA: [id number] Cholesterol 162 <200 mg/dL Triglycerides 142 <150 [...] Interpretation:118 Performing Lab: Notes/Report: Test performed by [employer] [address] [place] [address] , [address], [place] [address] Gamal Haywood MD, Tool Marker CLIA: [id number] Vitamin D 25-Hydroxy 118.0 30.0-100.0 ng/mL Interpretation [...] lesions on face . Would prefer seeing double ending machine operator in [facility] Diagnosis 1 AK (actinic keratosi s) (L57.0) Referral Organization [facility] Referring Provider First Name Keeley Gunn Referring Provider Last Name Serafin Referring Provider Speciality Family Jae price Referred Provider Dermatology, . Referred Provider Specialty Dermatology General Notes Nanci James 024 1:54:17 PM > referral submitted via [facility] website, Nanci James 08/24/2024 2:58:20 PM > appt 08/25/2024 at 10:00am in [facility] Referral Priority Routine REASON FOR [...] Status W/U Status Risk Notes Problem Anemia (730796272) Anemia (D64.9) Active confirmed Vital Signs Blood pressure systolic 136 mm Hg 08/24/20 24 Blood pressure diastolic 60 mm Hg 024 Heart Rate 70 /min 08/24/2024 Height 63.50 in 08/24/2024 Weight 120.4 lbs 08/24/2024 BMI 20.99 kg/m2 08/24/2024 Encounters Encounter Location Date Provider Diagnosis [facility] [address] [facility] [address] [place] [phone] 08/24/2024 Keeley Betancourt Essential hypertensi on I10 [...] les ions on face. Would prefer seeing double ending machine operator in [facility], . Dermatology Next Appt Details Follow Up: 6 Months, Reason: Provider Name:Keeley Giordano, 02/19/2026 10:45:00 AM, [address] [facility] 36 [facility], [address] , [place], [place], [phone], Progress Notes * LYNDAKESHANIHARIKADOB:1950 (75 yo F)Acc No.[id number]:08/24/2024 Progress Notes Patient: NIHARIKA VILLARREAL Provider: Keeley Betancourt M.D. :1950 A ge:74 Y S ex:Female Date:08/24/2024 Address:[address] [place] [phone] Subjective: * Chief Complaints: * 1 . [...] carrion- [facility] [[email or web address]] in [place] 11/2014. * Family History: F ather: , [...] 08/24/2024 2:05 :00 PM > faxed to [facility] Lori Davenport 08/29/2024 11:34:40 AM > 09/13 [...] AM)?304* Value Reference Range V itamin B12 442 278-1200 - pg/mL * Keeley Betancourt 08/28/2024 9:43:21 PM >See phone encounter 9.?AK (actinic keratosis)? Referral To:. Dermatology??Dermatology ?Reason:skin lesions on face. Would prefer seeing double ending machine operator in [facility] 10.?Screening for breast cancer?Imaging: Mammogram (Performed Date - 09/13/2024)?Negative, annual f/u* Value Reference Range r esult Negative, annual f/u * Nanci James 08/24/2024 2:05 :11 PM > faxed to [facility] Lori Davenport 08/29/2024 11:34:56 AM > 09/13 @ 3:15WuIsa harrison 09/18/2024 4:06:24 PM > pt informed of results * Immunizations: Fluzone High Dose (65yr and older) : 0.5 mL (Route: Intramuscular) given by Isa Araiza on Left Deltoid (Encounter for immunization) * Procedure Codes: 9 4760 [place], [address] CBC WITH AUTO DIFF, 45761 VENIPUNCT, ROUTINE* * Follow Up: 6 Months * Images: Billing Information: * Visit Code: 19153 Office Visit, Est Pt., Level 4. * Procedure Codes: [address] [place]. [address] CBC WITH AUTO DIFF. 15053 VENIPUNCT, ROUTINE*. * Electronic signature of Keeley Betancourt MD on 09/17/2025 at 08:50 AM EST Sign off status: Pending * Provider: Keeley Betancourt M.D. Date: Generated for Johni milagros/Lela/eTransmitting on: 11/17/2024 08:50 AM EST History and Physical Notes * [...] les ions on face. Would prefer seeing double ending machine operator in [facility]
--- OUTSIDE RECORDS SUMMARY | 2024-09-13 09:20 | XMS_ITS ---
Author Organization [facility] Address [address] [facility] [address] [place] [phone] Care Team Providers Care Jewish Thought Professor Name Role Phone Keeley Betancourt Primary Care Provider Results Component Value Reference Range Notes Hemoccult- IFOBT (in house) Reviewed date:10/03/2024 02:55:40 PM Interpretation:Negative Performing Lab: Notes/Report: Negative results Neg REASON FOR VISIT stool sample Medications Medication SIG (Take, Route, Frequency, Duration) Notes Start Date End Date Status Ferrous Sulfate 325 (65 Fe) MG 1 tablet Orally once daily; Duration: 30 day(s) 08/28/2024 Active traMADol HCl 50 MG 1-2 tab(s) Orally q6 h prn 06/20/2024 Active Vitamin D3 25 MCG (1000 UT) 1 capsule orally once a day Active DULoxetine HCl 30 MG 1 capsule Orally On ce a day; Duration: 30 day(s) Not-Taking DULoxetine HCl 60 MG 1 capsule Orally On ce a day; Duration: 90 days Active Nitroglycerin 0.4 MG 1 tab(s) sublingual ly every 5 minutes prn chest pain 11/28/2020 Active Albuterol Sulfate HFA 108 (90 Base) MCG/ACT 2 puff(s) inhaled every 6 hours prn Active July Allergy 180 MG 1 tab(s) orally o nce a day 02/21/2021 Active Aspir-Low 81 MG 1 tab(s) orally once a day; Duration: 30 day(s) Active Omeprazole 40 MG 1 cap(s) orally once a day; Duration: 30 day(s) 11/28/2020 Active Clopidogrel Bisulfate 75 MG 1 tab(s) orally once a day Active Furosemide 40 MG 1/2 tab(s) orally on ce a day Active [employer]Touch CPAP & BIPAP Hose 1 DIRECTED 11/10/2018 Active Calcium + Vitamin D3 600-5 MG-MCG 1 tab(s) orally TID Active Nabumetone 500 MG 1 tablet Orally Twic e a day; Duration: 30 day(s) Active amLODIPine Besylate 10 MG 1 tab(s) Orall y once a day Active Metoprolol Succinate 100 MG 1 tab(s) orally once a day Active Benazepril HCl 40 MG 1 tab(s) orally onc e a day Active Flonase Allergy Relief 50 MCG/ACT 2 spray(s) intranasally once a day Active Atorvastatin Calcium 40 MG 1 tab(s) orally once a day (at bedtime) Active Alendronate Sodium 70 MG 1 tab(s) orally once a week Active Encounters Encounter Location Date Provider Diagnosis [facility] [address] [facility] 36 [facility] [address] [place], [place] [phone] 09/13/2024 Keeley Betancourt Anemia D64.9 Assessments Encounter Date Diagnosis (ICD Code) Assessment Notes Treatment Notes Treatment Clinical Notes Section Notes 09/13/2024 Anemia (ICD-10 - D64.9) Plan Of Treatment Next Appt Details Provider Name:Keeley Giordano, 02/19/2026 10:45:00 AM, [address] [facility] 36 [facility], [address], [place], [place], [phone], Progress Notes * NIHARIKA NARVAEZDOB:1950 (75 yo F)Acc No.[id number]:09/13/2024 Patient: Chery TORRES NIHARIKA Provider: Keeley Betancourt M.D. :1950 A ge:74 Y S ex:Female Date:09/13/2024 Address:[address] [place], [place] [address] [id number] Subjective: * Chief Complaints: * 1 . Stool sample. * Medical History: * Medications: T aking Alendronate Sodium 70 [...] tablet Orally Twice a day , Taking Calcium + Vitamin [...] Tablet 1-2 tab(s) Orally q6h prn , Taking Ferrous Sulfate 325 (65 Fe) MG Tablet Delayed Release 1 tablet Orally once daily , Taking Vitamin D3 25 MCG (1000 UT) Capsule 1 capsule orally once a day , Taking DULoxetine HCl 60 MG Capsule Delayed Release Particles 1 capsule Orally Once a day , Not-Taking DULoxetine HCl 30 MG Capsule Delayed Release Particles 1 capsule Orally Once a day , Medication List reviewed and reconciled with the patient Objective: * Vitals: Assessment: * Assessment: 1. A nemia - D64.9 (Primary) Plan: * Treatment: Value Reference Range r esults Neg * KaiFelicia 09/13/2024 2:24:43 PM >Keeley Betancourt 10/03/2024 2:54:55 PM > discussed with patient during OV * Procedure Codes: 8 2274 ASSAY TEST FOR BLOOD, FECAL, Modifiers: QW * Images: Billing Information: * Visit Code: * Procedure Codes: 01010 ASSAY TEST FOR BLOOD, FECAL. Modifiers: QW * Electronic signature of Keeley Betancourt MD on 09/15/2025 at 08:36 PM EST Sign off status: Pending * Provider: Keeley Betancourt M.D. Date: 11/13/2023 Generated for Nithya linares/Lela/Jackiitting on: 11/15/2024 08:36 PM EST
--- OUTSIDE RECORDS SUMMARY | 2024-09-13 09:20 | XMS_ITS ---
Author Organization [facility] Address [address] [facility] [address] [phone] Care Team Providers Care Vp Ad Products And Planning Name Role Phone Keeley Betancourt Primary Care [...] Active Encounters Encounter Location Date Provider Diagnosis [facility] [address] [facility] [address] [facility] [address] [place], [place] [phone] 09/13/2024 Keeley Betancourt Anemia D64.9 Assessments Encounter Date Diagnosis (ICD Code) Assessment Notes Treatment Notes Treatment Clinical Notes Section Notes 09/13/2024 Anemia (ICD-10 - D64.9) Plan Of Treatment Next Appt Details Provider Name:Keeley Giordano, 02/19/2026 10:45:00 AM, [address] [facility] [address] [facility], [address], [place], [place], [phone], Progress Notes * NIHARIKA NARVAEZDOB:1950 (75 yo F)Acc No.[id number]:09/13/2024 Patient: Chery TORRES NIHARIKA Provider: Keeley Betancourt M.D. :1950 A ge:74 Y S ex:Female Date:09/13/2024 Address:[address] [place], [place] [address] [id number] Subjective: * Chief Complaints: * 1 . [...] Information: * Visit Code: * Procedure Codes: 50572 ASSAY TEST FOR BLOOD, FECAL. Modifiers: QW * Electronic signature of Keeley Betancourt MD on 09/17/2025 at 08:53 AM EST Sign off status: Pending * Provider: Keeley Betancourt M.D. Date: 11/13/2023 Generated for Johni milagros/Lela/Juaquinsmitting on: 11/17/2024 08:53 AM EST
--- OUTSIDE RECORDS SUMMARY | 2024-10-03 08:30 | XMS_ITS ---
Author Organization [facility] Address [address] [facility] [address] [place] [phone] Care Team Providers Care Foundry Laborer Coreroom Name Role Phone Keeley Betancourt Primary Care Provider Allergies Allergen (clinical drug ingredient) Drug/Non Drug Allergy documented on EMR Reaction Allergy Type Onset Date Status cefdinir Cefdinir disoriented Drug Allergy Activ e ibandronic acid Ibandronic Acid BP high and low Drug Allergy Active moxifloxacin Moxifloxacin GI Drug Allergy A ctive Results Component Value Reference Range Notes CBC Fingerstick (in house) Reviewed date:10/03/2024 02:54:43 PM Interpretation:hgb 11.0 Performing Lab: Notes/Report: hgb 11.0 wbc 7.4 3.5 - 10 lym 20.4 15 - 50 mid 6.4 2 - 15 gran 73.2 35 - 80 rbc 4.33 3.5 - 5.5 hgb 11.0 11.5 - 16.5 hct 35.7 35 - 55 mcv 82.5 75 - 100 mch 25.4 25 - 35 mchc 30.7 31 - 38 plat 318 100 - 400 REASON FOR VISIT 1 Month Follow Up Medications Medication SIG (Take, Route, Frequency, Duration) Notes Start Date End Date Status Omeprazole 40 MG 1 cap(s) orally once a day; Duration: 30 day(s) 11/28/2020 Active Aspir-Low 81 MG 1 tab(s) orally once a day; Duration: 30 day(s) Active Calcium + Vitamin D3 600-5 MG-MCG 1 tab(s) orally TID Active CareTouch CPAP & BIPAP Hose 1 DIRECTED 11/10/2018 Active Nitroglycerin 0.4 MG 1 tab(s) sublingual ly every 5 minutes prn chest pain 11/28/2020 Active Metoprolol Succinate 100 MG 1 tab(s) orally once a day Active amLODIPine Besylate 10 MG 1 tab(s) Orall y once a day Active Furosemide 40 MG 1/2 tab(s) orally on ce a day Active Clopidogrel Bisulfate 75 MG 1 tab(s) orally once a day Active Nabumetone 500 MG 1 tablet Orally Twic e a day; Duration: 30 day(s) Active Alendronate Sodium 70 MG 1 tab(s) orally once a week Active Atorvastatin Calcium 40 MG 1 tab(s) orally once a day (at bedtime) Active Flonase Allergy Relief 50 MCG/ACT 2 spray(s) intranasally once a day Active Benazepril HCl 40 MG 1 tab(s) orally onc e a day Active Ferrous Sulfate 325 (65 Fe) MG 1 tablet Orally once daily 08/28/2024 Active Albuterol Sulfate HFA 108 (90 Base) MCG/ACT 2 puff(s) inhaled every 6 hours prn Active traMADol HCl 50 MG 1-2 tab(s) Orally q6 h prn 06/20/2024 Active Vitamin D3 25 MCG (1000 UT) 1 capsule orally once a day Active DULoxetine HCl 60 MG 1 capsule Orally On ce a day; Duration: 90 days Active DULoxetine HCl 30 MG 1 capsule Orally On ce a day; Duration: 30 day(s) Not-Taking July Allergy 180 MG 1 tab(s) orally o nce a day 02/21/2021 Active Problems Problem Type SNOMED Code ICD Code Onset Dates Problem Status W/U Status Risk Notes Problem Iron deficiency anemia (23494755) Iron deficiency anemia (D50.9) Active confirmed Vital Signs Blood pressure systolic 120 mm Hg 10/03/20 24 Blood pressure diastolic 60 mm Hg 024 Heart Rate 75 /min 10/03/2024 Height 63.50 in 10/03/2024 Weight 120.6 lbs 10/03/2024 BMI 21.03 kg/m2 10/03/2024 Encounters Encounter Location Date Provider Diagnosis [facility] [address] [facility] [address] [phone] 10/03/2024 Keeley Betancourt Iron deficiency anem ia D50.9 Assessments Encounter Date Diagnosis (ICD Code) Assessment Notes Treatment Notes Treatment Clinical Notes Section Notes 10/03/2024 Iron deficiency anemia (ICD-10 - D50.9) Plan Of Treatment Medication Medication Name Sig Start Date Stop Date Notes Ferrous Sulfate 325 (65 Fe) MG 1 tablet Orally once daily 08/28/2024 Next Appt Details Follow Up: 6 Months, Reason: Provider Name:Keeley Giordano, 02/19/2026 10:45:00 AM, [address], [address], [place], [place], [phone], Progress Notes * NIHARIKA NARVAEZDOB:1950 (75 yo F)Acc No.[id number]:10/03/2024 Progress Notes Patient: NIHARIKA VILLARREAL Provider: Keeley Betancourt M.D. :1950 A ge:74 Y S ex:Female Date:10/03/2024 Address:[address] [place] [address], [place], [id number] Subjective: * Chief Complaints: * 1 . 1 Month Follow Up. * HPI: H ematology: Anemia P t presents today for a repeat CBC since starting iron supplement. She is toleratting the iron. * ROS: D ERMATOLOGY: no R radha. n o H jt. G ASTROENTEROLOGY: no N ausea. n o V omiting. U ROLOGY: no D ifficulty urinating. n o B lood in urine. * Medical History: H yperlipidemia, Dysplastic colon polyp 1999, Sleep apnea on c-PAP, OA, Vitamin D deficiency, Seasonal allergies, DJD of lumbar spine, 45 pack year smoking history as of 2017, Osteoporosis. * Surgical History: r uptered disc/back surgery 1993, tubal 1976, carpal tunnel 2000, Colonoscopy/Dr. Garibay/polyp 09/2010, ORIF left femur fracture 10/2017, left hip replacement - Dr. Chung 04/2018, Stent placement both legs 03/2021, Cataract Surgery 05/2022, Right Hip Replacement Total 05/02/2024. * Hospitalization/Major Diagno stic Procedure: Iveth luisyaakov- [facility] in [place] 11/2014. * Family History: F ather: , [...] - Side Effects. Objective: * Vitals: W t:120.6, Temp:97.7, BP:120/60, HR:75, Nurse:KIRIT, Ht: 63.50, BMI:21.03. * Examination: G eneral Examination: General Appearance: N AD. H eart: R SR. L ungs:?clear to auscultation. Assessment: * Assessment: 1. I luis deficiency anemia - D50.9 (Primary) Plan: * Treatment: * Labs: * L ab: CBC Fingerstick (in house) (Collection Date & Time - 10/03/2024) h gb 11.0 Value Reference Range w bc 7.4 3.5 - 10 * l ym 20.4 15 - 50 * m id 6.4 2 - 15 * g ran 73.2 35 - 80 * r bc 4.33 3.5 - 5.5 * h gb 11.0 11.5 - 16.5 * h ct 35.7 35 - 55 * m cv 82.5 75 - 100 * m ch 25.4 25 - 35 * m chc 30.7 31 - 38 * p lat 318 100 - 400 * Isa Araiza 10/03/2024 1:5 0:28 PM > results reviewed w/ pt in Keeley Alvarado 10/03/2024 2:54:41 PM > * Procedure Codes: G 2211 Complex e/[place], [address] CAPILLARY BLOOD DRAW, 69728 CBC WITH AUTO DIFF * Follow Up: 6 Months * Images: Billing Information: * Visit Code: 66537 Office Visit, Est Pt., Level 3. * Procedure Codes: G2211 Complex e/[place]. [address] CAPILLARY BLOOD DRAW. 39559 CBC WITH AUTO DIFF. * Electronic signature of R Cheng Betancourt MD on 09/17/2025 at 08:53 AM EST Sign off status: Pending * Provider: Keeley Betancourt M.D. Date: 12/03/2023 Generated for Nithya linares/Lela/Aneesh on: 11/17/2024 08:53 AM EST History and Physical Notes * HPI (History of Present Illness) Category Sub-Category Detail Notes Category Not es Hematology Anemia Pt presents toda y for a repeat CBC since starting iron supplement. She is toleratting the iron Examination Category Sub-Category Detail Notes Category Not es General Examination Heart: RSR Lungs: clear to auscultatio n General Appearance: NAD
--- OUTSIDE RECORDS SUMMARY | 2024-10-03 08:30 | XMS_ITS ---
Author Organization [facility] Address [address] [facility] [address] [place] [phone] Care Team Providers Care Aging Room Operator Name Role Phone Keeley Betancourt Primary [...] Status Risk Notes Problem Iron deficiency anemia (74531546) Iron deficiency anemia (D50.9) Active confirmed Vital Signs Weight 120.6 lbs 10/03/2024 Blood pressure systolic 120 mm Hg 10/03/20 24 Blood pressure diastolic 60 mm Hg 024 Heart Rate 75 /min 10/03/2024 Height 63.50 in 10/03/2024 BMI 21.03 kg/m2 10/03/2024 Encounters Encounter Location Date Provider Diagnosis [facility] [address] [facility] [address] [place] [phone] 10/03/2024 Keeley Betancourt Iron deficiency anem ia [...] [address], [address], [place], [place], [id number], Progress Notes * NIHARIKA NARVAEZDOB:1950 (75 yo F)Acc No.[id number]:10/03/2024 Progress Notes Patient: NIHARIKA VILLARREAL Provider: Keeley Betancourt M.D. :1950 A ge:74 Y S ex:Female Date:10/03/2024 Address:[address] [place] [address], [place], [id number] Subjective: * Chief Complaints: * 1 . [...] * Hospitalization/Major Diagno stic Procedure: Iveth luisyaakov- [facility] in [place] 11/2014. * Family History: F ather: , [...] G 2211 Complex e/[place], [address] CAPILLARY BLOOD DRAW, 11278 CBC WITH AUTO DIFF * Follow Up: 6 Months * Images: Billing Information: * Visit Code: 08404 Office Visit, Est Pt., Level 3. * Procedure Codes: G2211 Complex e/[place]. [address] CAPILLARY BLOOD DRAW. 71128 CBC WITH AUTO DIFF. * Electronic signature of R Cheng Betancourt MD on 09/15/2025 at 08:36 PM EST Sign off status: Pending * Provider: Keeley Betancourt M.D. Date: 12/03/2023 Generated for Nithya linares/Lela/Aneesh on: 11/15/2024 08:36 PM EST History and Physical [...]
--- OUTSIDE RECORDS SUMMARY | 2025-02-15 04:15 | XMS_ITS ---
Author Organization [facility] Address [address] [facility] [address] [place] [id number] Care Team Providers Care Warehouse Order Picker Name Role Phone Keeley Betancourt Primary Care Provider Allergies Allergen (clinical drug ingredient) Drug/Non Drug Allergy documented on EMR Reaction Allergy Type Onset Date Status cefdinir Cefdinir disoriented Drug Allergy Activ e ibandronic acid Ibandronic Acid BP high and low Drug Allergy Active moxifloxacin Moxifloxacin GI Drug Allergy A ctive Results Component Value Reference Range Notes CBC Venipuncture (in house) Reviewed date:02/20/2025 09:44:27 PM Interpretation: Performing Lab: Notes/Report: wbc 7.6 3.5 - 10 lymph 15.3 15 - 50 mid 5.5 2 - 15 gran 79.2 35 - 80 rbc 4.24 3.5 - 5.5 hgb 13.5 11.5 - 16.5 hct 41.0 35 - 55 mcv 96.6 75 - 100 mch 31.9 25 - 35 mchc 33.0 31 - 38 platlet 264 100 - 400 P-Vitamin B12 Reviewed date:02/20/2025 09:44:27 PM Interpretation: Performing Lab: Notes/Report: Test performed by [employer], [employer] [address] [place] [address] , [address], [place] [address] Gamal Haywood MD, Tie Buyer CLIA: [id number] Vitamin B12 [phone] pg/mL P-Comprehensive Metabolic Pa yoseph (CMP) Reviewed date:02/20/2025 09:44:27 PM Interpretation: Performing Lab: Notes/Report: Test performed by [facility] [address] [place] [address] , [address], [place] [address] Gamal Haywood MD, Tie Buyer CLIA: [id number] Sodium 137 135-145 mmol/L Potassium 3.7 3.5-5.3 mmol/L Chloride 92 97-108 mmol/L CO2 30 22-32 mmol/L Glucose 89 65-99 mg/dL BUN 8 8-23 mg/dL Creatinine 0.60 0.50-1.00 mg/dL Calcium 9.5 8.6-10.4 mg/dL eGFR by Creatinine 93 >59 mL/min/1.73m2 Protein 6.4 6.0-8.3 g/dL Albumin 4.2 3.5-5.3 g/dL Alkaline Phosphatase 66 35-121 IU/L ALT (SGPT) 19 <5-47 IU/L AST (SGOT) 20 <5-40 IU/L Bilirubin, Total 0.6 <0.2-1.2 mg/dL A/G Ratio 1.9 1.1-2.5 P-Iron Reviewed date:02/20/2025 09:44:27 PM Interpretation: Performing Lab: Notes/Report: Test performed by [facility] [address] [place] [address] , [place] [id number] Gamal Haywood MD, Tie Buyer CLIA: [id number] Iron 140 37-145 ug/dL P-Lipid Panel Reviewed date:02/20/2025 09:44:27 PM Interpretation: Performing Lab: Notes/Report: Test performed by [facility] [address] [place] [address] , [address], [place] [address] Gamal Haywood MD, Tie Buyer CLIA: [id number] Cholesterol 163 <200 mg/dL Triglycerides 106 <150 mg/dL HDL Cholesterol 54 >39 mg/dL Cholesterol / HDL Ratio 3.02 0.00-4.44 Ratio Non-HDL Cholesterol 109 <130 mg/dL LDL Cholesterol (Calculation) 88 <130 mg/dL LDL Cholesterol Levels* Less than 100 mg/dL Optimal 100 to 129 mg/dL Near Optimal/ Above Optimal 130 to 159 mg/dL Borderline High 160 to 189 mg/dL High 190 mg/dL and above Very High * Categories as recommended by the 2004 ATPIII guidelines LDL/HDL Ratio 1.6 <3.3 Ratio LDL Cholesterol Patient History Test Date: 03/02/2024 LDL Results: 106 Units: mg/dL % Change: +20% Test Date: 08/24/2024 LDL Results: 90 Units: mg/dL % Change: -15% Test Date: 02/15/2025 LDL Results: 88 Units: mg/dL % Change: -2% P-TSH Reviewed date:02/20/2025 09:44:27 PM Interpretation: Performing Lab: Notes/Report: Test performed by [facility] [address] [facility] [address], [place] [address] Gamal Haywood MD, Tie Buyer CLIA: [id number] TSH 2.17 0.43-5.25 mU/L P-Microalbumin/Creatinine, R andom Urine Sample Reviewed date:02/20/2025 09:44:27 PM Interpretation: Performing Lab: Notes/Report: Test performed by [facility] [address] [facility] , [address], [place] [address] Gamal Haywood MD, Tie Buyer CLIA: [id number] Albumin/Creatinine Ratio, Urine 18 0-30 ug/m g Microalbumin, Urine, Random 1.4 Creatinine, Urine 77.8 Reason For Referral Reason Dr. José Miguel [place] for PAD, carotid disease; dilated left atrium Diagnosis 1 PAD (peripheral beryl ry disease) (I73.9) [facility] Referring Provider First Name Keeley Gunn Referring Provider Last Name Serafin Referring Provider [facility]ity [facility] Referred Provider Cardiology, . Referred Provider Specialty Cardiovascul ar Disease General Notes Nanci James 2024 10:46:57 AM > faxed to [place] office as he does not have a [place] number Referral Priority Routine REASON FOR VISIT 6 months and AWV Medications Medication SIG (Take, Route, Frequency, Duration) Notes Start Date End Date Status DULoxetine HCl 30 MG 1 capsule Orally On ce a day; Duration: 30 day(s) Not-Taking DULoxetine HCl 60 MG 1 capsule Orally On ce a day; Duration: 90 days Active Albuterol Sulfate HFA 108 (90 Base) MCG/ACT 2 puff(s) inhaled every 6 hours prn Active Atorvastatin Calcium 40 MG TAKE 1 TABLET BY MOUTH ONCE DAILY AT BEDTIME; Duration: 90 Active Ferrous Sulfate 325 (65 Fe) MG 1 tablet Orally once daily 08/28/2024 Active Omeprazole 40 MG 1 cap(s) orally once a day; Duration: 30 day(s) 11/28/2020 Active traMADol HCl 50 MG 1-2 tab(s) Orally q6 h prn 06/20/2024 Active Vitamin D3 25 MCG (1000 UT) 1 capsule orally once a day Active Aspir-Low 81 MG 1 tab(s) orally once a day; Duration: 30 day(s) Active July Allergy 180 MG 1 tab(s) orally o nce a day 02/21/2021 Active Clopidogrel Bisulfate 75 MG 1 tab(s) orally once a day Active CareTouch CPAP & BIPAP Hose 1 DIRECTED 11/10/2018 Active Nitroglycerin 0.4 MG 1 tab(s) sublingual ly every 5 minutes prn chest pain 11/28/2020 Active Nabumetone 500 MG 1 tablet Orally Twic e a day; Duration: 30 day(s) Active Calcium + Vitamin D3 600-5 MG-MCG 1 tab(s) orally TID Active Benazepril HCl 40 MG 1 tab(s) orally onc e a day Active Metoprolol Succinate 100 MG 1 tab(s) orally once a day Active Flonase Allergy Relief 50 MCG/ACT 2 spray(s) intranasally once a day Active amLODIPine Besylate 10 MG 1 tab(s) Orall y once a day Active Furosemide 40 MG 1/2 tab(s) orally on ce a day Active Alendronate Sodium 70 MG 1 tab(s) orally once a week Active Atorvastatin Calcium 40 MG 1 tab(s) orally once a day (at bedtime) Active Problems Problem Type SNOMED Code ICD Code Onset Dates Problem Status W/U Status Risk Notes Problem Vitamin B12 deficiency (254542079) Vitamin B12 deficiency (E53.8) Active confirmed Problem Osteoporosis (04541113) Osteoporosis, unspecified (M81.0) Active confirmed Vital Signs Weight 110.4 lbs 02/15/2025 Blood pressure systolic 120 mm Hg 02/16/20 25 Blood pressure diastolic 60 mm Hg 025 Height 63.50 in 02/15/2025 BMI 19.25 kg/m2 02/15/2025 Encounters Encounter Location Date Provider Diagnosis [facility] [address] [facility] [address] [place], [place] [id number] 02/15/2025 eKeley Betancourt Adult general medica l examination Z00.00 ; Essential hypertension I10 ; Dyslipidemia E78.5 ; Chronic obstructive pulmonary disease, unspecified COPD type J44.9 ; Primary osteoarthritis involving multiple joints M15.0 ; FRANSISCO (obstructive sleep apnea) G47.33 ; PAD (peripheral artery disease) I73.9 ; Osteoporosis without current pathological fracture, unspecified osteoporosis type M81.0 ; Seasonal allergies J30.2 ; Vitamin D deficiency E55.9 ; Tobacco use disorder F17.200 ; Anemia D64.9 ; History of cigarette smoking Z87.891 ; Vitamin B12 deficiency E53.8 ; Weight loss, unintentional R63.4 ; Early satiety R68.81 ; Body mass index (BMI) of 19.0 to 19.9 in adult Z68.1 and Osteoporosis, unspecified M81.0 Assessments Encounter Date Diagnosis (ICD Code) Assessment Notes Treatment Notes Treatment Clinical Notes Section Notes 02/15/2025 Adult general medical examination (ICD-10 - Z00.00) Patient instructed to return to office Annually for Annual Wellness Visits to include annual screenings of Pain assessment, Functional Ability assessment, Cognitive Ability assessment, Fall Risk assessment, Depression screening and Bladder control screening. 02/15/2025 Essential hypertension (ICD-10 - I10) 02/15/2025 Dyslipidemia (ICD-10 - E78.5) 02/15/2025 Chronic obstructive pulmonary disease, unspecified COPD type (ICD-10 - J44.9) 02/15/2025 Primary osteoarthritis involving multiple joints (ICD-10 - M15.0) 02/15/2025 FRANSISCO (obstructive sleep apnea) (ICD-10 - G47.33) 02/15/2025 PAD (peripheral artery disease) (ICD-10 - I73.9) 02/15/2025 Osteoporosis without current pathological fracture, unspecified osteoporosis type (ICD-10 - M81.0) 02/15/2025 Seasonal allergies (ICD-10 - J30.2) 02/15/2025 Vitamin D deficiency (ICD-10 - E55.9) 02/15/2025 Tobacco use disorder (ICD-10 - F17.200) 02/15/2025 Anemia (ICD-10 - D64.9) 02/15/2025 History of cigarette smoking (ICD-10 - Z87.891) 02/15/2025 Vitamin B12 deficiency (ICD-10 - E53.8) 02/15/2025 Weight loss, unintentional (ICD-10 - R63.4) Check labs. May need referral for EGD 02/15/2025 Early satiety (ICD-10 - R68.81) 02/15/2025 Body mass index (BMI) of 19.0 to 19.9 in adult (ICD-10 - Z68.1) 02/15/2025 Osteoporosis, unspecified (ICD-10 - M81.0) Plan Of Treatment Medication Medication Name Sig Start Date Stop Date Notes DULoxetine HCl 60 MG 1 capsule Orally On ce a day; Duration: 90 days Clopidogrel Bisulfate 75 MG 1 tab(s) orally once a day Benazepril HCl 40 MG 1 tab(s) orally once a day Metoprolol Succinate 100 MG 1 tab(s) orally once a day Flonase Allergy Relief 50 MCG/ACT 2 spray(s) intranasally once a day amLODIPine Besylate 10 MG 1 tab(s) Orally once a day Furosemide 40 MG 1/2 tab(s) orally once a day Alendronate Sodium 70 MG 1 tab(s) orally once a week Atorvastatin Calcium 40 MG 1 tab(s) oral ly once a day (at bedtime) Treatment Notes Assessment Notes Adult general medical examination Patien t instructed to return to office Annually for Annual Wellness Visits to include annual screenings of Pain assessment, Functional Ability assessment, Cognitive Ability assessment, Fall Risk assessment, Depression screening and Bladder control screening. Weight loss, unintentional Check labs. M ay need referral for EGD Referrals Referral Date Details 02/16/2025 02/16/2025, Dr. Guera Abdi in [place] for PAD, carotid disease; dilated left atrium , . Cardiology Next Appt Details Follow Up: 6 Months, Reason: Provider Name:Keeley Giordano, 02/19/2026 10:45:00 AM, [address] [facility] [address] [facility], [address] , [place], [place], [id number], Progress Notes * NIHARIKA NARVAEZDOB:1950 (75 yo F)Acc No.[id number]:02/15/2025 Annual Wellness Visit Patient: Chery VELKESHA NIHARIKA Provider: Keeley Betancourt M.D. :1950 A ge:74 Y S ex:Female Date:02/15/2025 Address:[address] [place], [place] [id number] Subjective: * Chief Complaints: * 1 . 6 months and AWV. * HPI: H PI: Patient is here today for a scheduled 6 month c heck up and a Medicare Annual Wellness Visit. Pt is fasting. C ardiology: She is just returned from wintering in [place]. She reports having some intermittent swelling in her feet and ankles while in [place]. She also complains of some exertional dyspnea. No chest pain or palpitations. She is requesting referral to Dr. Abdi for cardiology evaluation. G astroenterology: She is concerned about weight loss. She has lost about 10 pounds since her last office visit. She denies abdominal pain, nausea, heartburn, or change in her bowel habits. Her does not think she is eating enough. She has been taking her iron supplement but continues to complain of generalized weakness. * ROS: O PTHALMOLOGY: Negative for d enies vision issues. * Medical History: H yperlipidemia, Dysplastic colon polyp 1999, Sleep apnea on c-PAP, OA, Vitamin D deficiency, Seasonal allergies, DJD of lumbar spine, 45 pack year smoking history as of 2016, Osteoporosis, ECHO 02/2023 - severely dilated left atrium. * Surgical History: r uptered disc/back surgery 1993, tubal 1976, carpal tunnel 2000, Colonoscopy/Dr. Garibay/polyp 09/2010, ORIF left femur fracture 10/2017, left hip replacement - Dr. Chung 04/2018, Stent placement both legs 03/2021, Cataract Surgery 05/2022, Right Hip Replacement Total 05/02/2024. * Hospitalization/Major Diagno stic Procedure: Iveth carrion- [facility] in [place] 11/2014. * Family History: F ather: , [...] tab(s) orally once a week , Taking Flonase Allergy Relief 50 MCG/ACT [...] tab(s) orally once a day , Taking traMADol HCl 50 MG Tablet 1-2 tab(s) Orally q6h prn , Taking Vitamin D3 25 MCG (1000 UT) Capsule 1 capsule orally once a day , Taking DULoxetine HCl 60 MG Capsule Delayed Release Particles 1 capsule Orally Once a day , Taking Ferrous Sulfate 325 (65 Fe) MG Tablet Delayed Release 1 tablet Orally once daily , Taking Albuterol Sulfate HFA 108 (90 Base) MCG/ACT Aerosol Solution 2 puff(s) inhaled every 6 hours prn , Taking Atorvastatin Calcium 40 MG Tablet TAKE 1 TABLET BY MOUTH ONCE DAILY AT BEDTIME , Not-Taking DULoxetine HCl 30 MG Capsule Delayed Release Particles 1 capsule Orally Once a day , Medication List reviewed and reconciled with the patient * Allergies: M oxifloxacin: GI, Ibandronic Acid: BP high and low, Cefdinir: disoriented - Side Effects. Objective: * Vitals: W t: 110.4, Temp: 98.4, BP: 120/60, Nurse: mague, Ht: 63.50, BMI:19.25. * Examination: C ardiology: General Appearance: A ppears frail, NAD. Weight loss noted. H EENT: s clera and conjunctiva clear, PERRLA, TM's normal, translucent. . C arotid upstroke: n ormal, no bruits. H eart sounds: R RR, normal S1, S2. M urmur, click , gallop: n one. L ungs: c lear, no rales or wheezes. A bdomen: p ositive BS, soft, nontender. E xtremities: n o leg edema. * Physical Examination: G ENERAL: Pain Assessment: P ain level: 4, on a scale of 0-10 (with 10 being extreme pain). F unctional Status Assessment: P atient response to question of how often physical health interferes with daily activities: . Occasionally Able to perform ADLs-including meal preparation, grocery shopping, housework, laundry, taking medications or handling finances. Cognitive Status: alert and oriented. Ambulation Status: Fully ambulatory . F all Risk Assessment: I ndependant in ambulation, adequate lighting in home. Patient has NOT fallen or had trouble walking within the past 12 months. D epression Screening: Bret pope depressed mood or anxiety. Describes emotional health as: calm. B ladder Control Screening: D toshia problems. Assessment: * Assessment: 1. A dult general medical examination - Z00.00 (Primary) 2 . E ssential hypertension - I10 3 . D yslipidemia - E78.5 4 . C hronic obstructive pulmonary disease, unspecified COPD type - J44.9 5 . P rimary osteoarthritis involving multiple joints - M15.0 6 . O SA (obstructive sleep apnea) - G47.33 7 . P AD (peripheral artery disease) - I73.9 8 . O steoporosis without current pathological fracture, unspecified osteoporosis type - M81.0 9 . S easonal allergies - J30.2 1 0. V itamin D deficiency - E55.9 ?11. T obacco use disorder - F17.200 1 2. A nemia - D64.9 ?13. H istory of cigarette smoking - Z87.891 1 4. V itamin B12 deficiency - E53.8 1 5. W eight loss, unintentional - R63.4 1 6. E srinivasan satiety - R68.81 1 7. B lisy mass index (BMI) of 19.0 to 19.9 in adult - Z68.1? 18. O steoporosis, unspecified - M81.0 Plan: * Treatment: Value Reference Range T SH 2.17 0.43-5.25 - mU/L * Serafin, R Luis A 02/20/2025 09:44:09 PM > See phone encounter Notes:Patient instructed to return to office Annually for Annual Wellness Visits to include annual screenings of Pain assessment, Functional Ability assessment, Cognitive Ability assessment, Fall Risk assessment, Depression screening and Bladder control screening.??2.?Essential hypertension? Refill Benazepril HCl Tablet, 40 MG, 1 tab(s), orally, once a day, 90, Refills 3;?Refill Metoprolol Succinate Capsule ER 24 Hour Sprinkle, 100 MG, 1 tab(s), orally, once a day, 90, Refills 3; Refill amLODIPine Besylate Tablet, 10 MG, 1 tab(s), Orally, once a day, 90, Refills 3;?Refill Furosemide Tablet, 40 MG, 1/2 tab(s), orally, once a day, 90, Refills 3.?LAB: P-Comprehensive Metabolic Panel (CMP) (Collection Date & Time - 02/15/2025 08:59 AM)* Value Reference Range A /G Ratio 1.9 1.1-2.5 - * A lbumin 4.2 3.5-5.3 - g/dL * A lkaline Phosphatase 66 35-121 - IU/L * A LT (SGPT) 19 <5-47 - IU/L * A ST (SGOT) 20 <5-40 - IU/L * B ilirubin, Total 0.6 <0.2-1.2 - mg/dL * B UN 8 8-23 - mg/dL * C alcium 9.5 8.6-10.4 - mg/dL * C hloride 92 L 97-108 - mmol/L * C O2 30 22-32 - mmol/L * C reatinine 0.60 0.50-1.00 - mg/dL * G lucose 89 65-99 - mg/dL * P otassium 3.7 3.5-5.3 - mmol/L * S odium 137 135-145 - mmol/L * P rotein 6.4 6.0-8.3 - g/dL * e GFR by Creatinine 93 >59 - mL/min/1.73m2 * Keeley Betancourt 02/20/2025 09:44:09 PM > See phone encounter ?LAB: P-TSH (Collection Date & Time - 02/15/2025 08:59 AM)* Value Reference Range T SH 2.17 0.43-5.25 - mU/L * Keeley Betancourt 02/20/2025 09:44:09 PM > See phone encounter ?LAB: P-Microalbumin/Creatinine, Random Urine Sample (Collection Date & Time - 02/15/2025 08:59 AM)* Value Reference Range A lbumin/Creatinine Ratio, Urine 18 0-30 - ug /mg * C reatinine, Urine 77.8 - mg/dL * M icroalbumin, Urine, Random 1.4 - mg/dL * Keeley Betancourt 02/20/2025 09:44:09 PM > See phone encounter ?LAB: CBC Venipuncture (in house) (Collection Date & Time - 02/15/2025)* Value Reference Range w bc 7.6 3.5 - 10 * l ymph 15.3 15 - 50 * m id 5.5 2 - 15 * g ran 79.2 35 - 80 * r bc 4.24 3.5 - 5.5 * h gb 13.5 11.5 - 16.5 * h ct 41.0 35 - 55 * m cv 96.6 75 - 100 * m ch 31.9 25 - 35 * m chc 33.0 31 - 38 * p latlet 264 100 - 400 * Qi Jc 02/15/2025 11:2 8:31 AM > Keeley Betancourt 02/20/2025 09:44:09 PM > See phone encounter 3.?Dyslipidemia? Refill Atorvastatin Calcium Tablet, 40 MG, 1 tab(s), orally, once a day (at bedtime), 90, Refills 3.?LAB: P-Lipid Panel (Collection Date & Time - 02/15/2025 08:59 AM)* Value Reference Range C holesterol / HDL Ratio 3.02 0.00-4.44 - Ratio * C holesterol 163 <200 - mg/dL * H DL Cholesterol 54 >39 - mg/dL * L DL Cholesterol (Calculation) 88 <130 - mg/d L * L DL/HDL Ratio 1.6 <3.3 - Ratio * N on-HDL Cholesterol 109 <130 - mg/dL * T riglycerides 106 <150 - mg/dL * Keeley Betancourt 02/20/2025 09:44:09 PM > See phone encounter 4.?Primary osteoarthritis involving multiple joints? Refill DULoxetine HCl Capsule Delayed Release Particles, 60 MG, 1 capsule, Orally, Once a day, 90 days, 90 Capsule, Refills 3.??5.?PAD (peripheral artery disease)? Refill Clopidogrel Bisulfate Tablet, 75 MG, 1 tab(s), orally, once a day, 90, Refills 3.? Referral To:. Cardiology??Cardiovascular Disease ?Reason:Dr. José Miguel Abdi in [place] for PAD, carotid disease; dilated left atrium 6.?Osteoporosis without current pathological fracture, unspecified osteoporosis type? Refill Alendronate Sodium Tablet, 70 MG, 1 tab(s), orally, once a week, 12, Refills 3.??7.?Seasonal allergies? Refill Flonase Allergy Relief Suspension, 50 MCG/ACT, 2 spray(s), intranasally, once a day, 1, Refills 3.??8.?Anemia?LAB: P-Iron (Collection Date & Time - 02/15/2025 08:59 AM)* Value Reference Range I luis 140 37-145 - ug/dL * Keeley Betancourt 02/20/2025 09:44:09 PM > See phone encounter 9.?Vitamin B12 deficiency?LAB: P-Vitamin B12 (Collection Date & Time - 02/15/2025 08:59 AM)* Value Reference Range V itamin B12 [phone] - pg/mL * Keeley Betancourt 02/20/2025 09:44:09 PM > See phone encounter 10.?Weight loss, unintentional? Notes: Check labs. May need referral for EGD?? * Procedure Codes: G 0439 ANNUAL WELLNESS VST; PPS SUBSQT VST, G2211 Complex e/m visit add on, G0444 ANNUAL DEPRESSION SCREENING 15 MIN, 1090F PRES/ABSN URINE INCON ASSESS, 3288F FALL RISK ASSESSMENT DOCD, 1170F FXNL STATUS ASSESSED, 1159F MED LIST DOCD IN RCRD, 1003F LEVEL OF ACTIVITY ASSESS, 4040F PNEUMOC IMM ORDER/ADMIN, 25096 CBC WITH AUTO DIFF, 1125F AMNT PAIN NOTED PAIN PRSNT, G8510 NEG SCR Depression PT NOT ELIG F/U/PLN DOC, 3074F SYST BP LT 130 MM HG, 3078F DIAST BP < 80 MM HG * Preventive Medicine: Counseling: E motional health: P atient encouraged to try connecting with family or friends to boost mood. B ladder control: M ethods of controlling or managing leakage of urine discussed. E xercise: P atient advised to start, increase or maintain level of exercise/physical activity. I njury prevention: F all prevention discussed. Discussed need for cane/walker. Potential trip hazards discussed. Immunizations: T etanus u p to date. P neumococcal u p to date. I nfluenza u p to date. Screening / Special Tests: M ammogram R ecent history: 09/13/2024, negative.?Colonoscopy R ecent history:, Cologuard:09/02/2020, negative, recommended. B one mineral Density R ecent history: 09/13/2024, osteoporosis. L kristian cancer screening , recommended due to smoking history. * Follow Up: 6 Months * Images: Billing Information: * Visit Code: 41045 Office Visit, Est Pt., Level 3. Modifiers: 25 * Procedure Codes: G0439 ANNUAL WELLNESS VST; PPS SUBSQT VST. G2211 Complex e/m visit add on. G044 ANNUAL DEPRESSION SCREENING 15 MIN. 1090F PRES/ABSN URINE INCON ASSESS. 3288F FALL RISK ASSESSMENT DOCD. 1170F FXNL STATUS ASSESSED. 1159F MED LIST DOCD IN RCRD. 1003F LEVEL OF ACTIVITY ASSESS. 4040F PNEUMOC IMM ORDER/ADMIN. 57076 CBC WITH AUTO DIFF. 1125F AMNT PAIN NOTED PAIN PRSNT. G8510 NEG SCR Depression PT NOT ELIG F/U/PLN DOC. 3074F SYST BP LT 130 MM HG. 3078F DIAST BP < 80 MM HG. * Electronic signature of Keeley Betancourt MD on 09/15/2025 at 08:34 PM EST Sign off status: Pending * Provider: Keeley Betancourt M.D. Date: 0 02/15/2025 Generated for Nithya milagros/Lela/eTransmitting on: 1 11/15/2024 08:34 PM EST History and Physical Notes * HPI (History of Present Illness) Category Sub-Category Detail Notes Category Not es Cardiology She is requesti milagros referral to Dr. Abdi for cardiology evaluation. Gastroenterology She has bee n taking her iron supplement but continues to complain of generalized weakness. HPI Patient is here today for a scheduled 6 month check up and a Medicare Annual Wellness Visit. Pt is fasting Physical Examination Category Sub-Category Detail Notes Section Note s GENERAL Pain Assessment: Pain level: 4, on a scale of 0-10 (with 10 being extreme pain) Functional Status Assessment: Patient response to question of how often physical health interferes with daily activities: . Occasionally Able to perform ADLs-including meal preparation, grocery shopping, housework, laundry, taking medications or handling finances. Cognitive Status: alert and oriented. Ambulation Status: Fully ambulatory Fall Risk Assessment: Independant in amb ulation, adequate lighting in home. Patient has NOT fallen or had trouble walking within the past 12 months Depression Screening: Denies depressed m ood or anxiety. Describes emotional health as: calm Bladder Control Screening: Denies proble ms Examination Category Sub-Category Detail Notes Category Not es Cardiology Lungs: clear, no rales or wheezes HEENT: sclera and conjuncti va clear, PERRLA, TM's normal, translucent. Heart sounds: RRR, normal S1, S2 Abdomen: positive BS, soft, n ontender Carotid upstroke: normal, no bruits Extremities: no leg edema Murmur, click , gallop: none General Appearance: Appears frail, NAD. Weight loss noted Consultation Request Notes Referral Date Referring Provider Referred Provider Not es 02/16/2025 Keeley Betancourt Cardiology, . Dr. Mik Abdi in [place] for PAD, carotid disease; dilated left atrium
--- OUTSIDE RECORDS SUMMARY | 2025-02-15 04:15 | XMS_ITS ---
Author Organization [facility] Address [address] [facility] [address] [place] [phone] Care Team Providers Care Feltmaker And Weigher Name Role Phone Keeley Betancourt Primary Care Provider [phone] Allergies Allergen (clinical drug ingredient) Drug/Non Drug [...] Interpretation: Performing Lab: Notes/Report: Test performed by [employer] [address] [place] [address] , [address], [place] [address] Gamal Haywood MD, Geotechnicial Properties Technician CLIA: [id number] Vitamin B12 492 493-2755 pg/mL P-Comprehensive Metabolic Pa yoseph (CMP) Reviewed date:02/20/2025 09:44:27 PM Interpretation: Performing Lab: Notes/Report: Test performed by [employer] [address] [place] [address] , [address], [place] [address] Gamal Haywood MD, Geotechnicial Properties Technician CLIA: [id number] Sodium 137 135-145 mmol/L Potassium 3.7 3.5-5.3 [...] Interpretation: Performing Lab: Notes/Report: Test performed by [employer] [address] [place] [address] , [place] [id number] Gamal Haywood MD, Geotechnicial Properties Technician CLIA: [id number] Iron 140 37-145 ug/dL P-Lipid Panel Reviewed date:02/20/2025 09:44:27 PM Interpretation: Performing Lab: Notes/Report: Test performed by [employer] [address] [place] [address] , [address], [place] [address] Gamal Haywood MD, Geotechnicial Properties Technician CLIA: [id number] Cholesterol 163 <200 mg/dL Triglycerides 106 <150 [...] Interpretation: Performing Lab: Notes/Report: Test performed by [employer] [address] [facility] [address], [place] [address] Gamal Haywood MD, Geotechnicial Properties Technician CLIA: [id number] TSH 2.17 0.43-5.25 mU/L P-Microalbumin/Creatinine, R andom Urine Sample Reviewed date:02/20/2025 09:44:27 PM Interpretation: Performing Lab: Notes/Report: Test performed by [employer] [address] [facility] , [address], [place] [address] Gamal Haywood MD, Geotechnicial Properties Technician CLIA: [id number] Albumin/Creatinine Ratio, Urine 18 0-30 ug/m g Microalbumin, Urine, Random 1.4 Creatinine, Urine 77.8 Reason For Referral Reason Dr. José Miguel [place] for PAD, carotid disease; dilated left atrium Diagnosis 1 PAD (peripheral beryl ry disease) (I73.9) [facility] Referring Provider First Name Keeley Gunn Referring Provider Last Name Serafin Referring Provider [facility] Referred Provider Cardiology, . Referred Provider Specialty Cardiovascul ar Disease General Notes Nanci James 2024 10:46:57 AM > faxed to [place] office as he does not have a [place] number Referral Priority Routine REASON FOR VISIT [...] Status Risk Notes Problem Vitamin B12 deficiency (434794620) Vitamin B12 deficiency (E53.8) Active confirmed Problem Osteoporosis (88725803) Osteoporosis, unspecified (M81.0) Active confirmed Vital Signs Blood pressure systolic 120 mm Hg 02/16/20 25 Blood pressure diastolic 60 mm Hg 025 Height 63.50 in 02/15/2025 Weight 110.4 lbs 02/15/2025 BMI 19.25 kg/m2 02/15/2025 Encounters Encounter Location Date Provider Diagnosis [facility] [address] [facility] [address] [place], [place] [phone] 02/15/2025 Keeley Betancourt Adult general medica l [...] Details 02/16/2025 02/16/2025, Dr. Guera Abdi in [place] for PAD, carotid disease; dilated left atrium , . Cardiology Next Appt Details Follow Up: 6 Months, Reason: Provider Name:Keeley Giordano, 02/19/2026 10:45:00 AM, [address] [facility] [address] [facility], [address] , [place], [place], [phone], Progress Notes * NIHARIKA NARVAEZDOB:1950 (75 yo F)Acc No.[id number]:02/15/2025 Annual Wellness Visit Patient: Chery VELKESHA NIHARIKA Provider: Keeley Betancourt M.D. :1950 A ge:74 Y S ex:Female Date:02/15/2025 Address:[address] [place], [place] [id number] Subjective: * Chief Complaints: * 1 . 6 months and AWV. * HPI: H PI: Patient is here today for a scheduled 6 month c heck up and a Medicare Annual Wellness Visit. Pt is fasting. C ardiology: She is just returned from wintering in [place]. She reports having some intermittent swelling in her feet and ankles while in [place]. She also complains of some exertional dyspnea. [...] Procedure: Iveth carrion- [facility] in [place] 11/2014. * Family History: F ather: , [...] Cardiology??Cardiovascular Disease ?Reason:Dr. José Miguel Abdi in [place] for PAD, carotid disease; dilated left atrium [...] AM)* Value Reference Range V itamin B12 046 753-8072 - pg/mL * Keeley Betancourt 02/20/2025 09:44:09 [...] OF ACTIVITY ASSESS, 4040F PNEUMOC IMM ORDER/ADMIN, 65651 CBC WITH AUTO DIFF, 1125F AMNT PAIN [...] * Images: Billing Information: * Visit Code: 21901 Office Visit, Est Pt., Level 3. Modifiers: 25 * Procedure Codes: G0439 ANNUAL WELLNESS VST; PPS SUBSQT VST. G2211 Complex e/m visit add on. G044 ANNUAL DEPRESSION SCREENING 15 MIN. 1090F PRES/ABSN URINE INCON ASSESS. 3288F FALL RISK ASSESSMENT DOCD. 1170F FXNL STATUS ASSESSED. 1159F MED LIST DOCD IN RCRD. 1003F LEVEL OF ACTIVITY ASSESS. 4040F PNEUMOC IMM ORDER/ADMIN. 90182 CBC WITH AUTO DIFF. 1125F AMNT PAIN NOTED PAIN PRSNT. G8510 NEG SCR Depression PT NOT ELIG F/U/PLN DOC. 3074F SYST BP LT 130 MM HG. 3078F DIAST BP < 80 MM HG. * Electronic signature of Keeley Betancourt MD on 09/17/2025 at 08:49 AM EST Sign off status: Pending * Provider: Keeley Betancourt M.D. Date: 0 02/15/2025 Generated for Nithya milagros/Lela/eTransmitting on: 1 11/17/2024 08:49 AM EST History and Physical Notes * [...] Betancourt Cardiology, . Dr. Mik Abdi in [place] for PAD, carotid disease; dilated left atrium
--- OUTSIDE RECORDS SUMMARY | 2025-04-12 09:15 | XMS_ITS ---
Author Organization [facility] Address [address] [facility] [address] [place] [phone] Care Team Providers Care Rfid Manager Name Role Phone Keeley Betancourt Primary Care Provider Allergies Allergen (clinical drug ingredient) Drug/Non Drug Allergy documented on EMR Reaction Allergy Type Onset Date Status cefdinir Cefdinir disoriented Drug Allergy Activ e ibandronic acid Ibandronic Acid BP high and low Drug Allergy Active moxifloxacin Moxifloxacin GI Drug Allergy A ctive Results Component Value Reference Range Notes CT Scan : Chest, low dose Reviewed date:05/10/2025 08:10:22 AM Interpretation:Abnormal Performing Lab: Notes/Report: Abnormal REASON FOR VISIT F/U DR Coronado Medications Medication SIG (Take, Route, Frequency, Duration) Notes Start Date End Date Status Nabumetone 500 MG 1 tablet Orally Twic e a day; Duration: 30 day(s) Active Calcium + Vitamin D3 600-5 MG-MCG 1 tab(s) orally TID Active DULoxetine HCl 30 MG 1 capsule Orally On ce a day; Duration: 30 day(s) Not-Taking Atorvastatin Calcium 40 MG TAKE 1 TABLET BY MOUTH ONCE DAILY AT BEDTIME; Duration: 90 Active DULoxetine HCl 60 MG 1 capsule Orally On ce a day; Duration: 90 days Active amLODIPine Besylate 10 MG 1 tab(s) Orall y once a day Active Furosemide 40 MG 1/2 tab(s) orally on ce a day Active Benazepril HCl 40 MG 1 tab(s) orally onc e a day Active Metoprolol Succinate 100 MG 1 tab(s) orally once a day Active Clopidogrel Bisulfate 75 MG 1 tab(s) orally once a day Active Alendronate Sodium 70 MG 1 tab(s) orally once a week Active Flonase Allergy Relief 50 MCG/ACT 2 spray(s) intranasally once a day Active Ferrous Sulfate 325 (65 Fe) MG 1 tablet Orally once daily 08/28/2024 Active Albuterol Sulfate HFA 108 (90 Base) MCG/ACT 2 puff(s) inhaled every 6 hours prn Active Vitamin D3 25 MCG (1000 UT) 1 capsule orally once a day Active Omeprazole 40 MG 1 cap(s) orally once a day; Duration: 30 day(s) 11/28/2020 Active Aspir-Low 81 MG 1 tab(s) orally once a day; Duration: 30 day(s) Active Nitroglycerin 0.4 MG 1 tab(s) sublingual ly every 5 minutes prn chest pain 11/28/2020 Active July Allergy 180 MG 1 tab(s) orally o nce a day 02/21/2021 Active traMADol HCl 50 MG 1-2 tab(s) Orally q6 h prn 06/20/2024 Active CareTouch CPAP & BIPAP Hose 1 DIRECTED 11/10/2018 Active Problems Problem Type SNOMED Code ICD Code Onset Dates Problem Status W/U Status Risk Notes Problem Atelectasis (03024124) Atelectasis of both lungs (J98.11) Active confirmed Vital Signs Weight 110.2 lbs 04/12/2025 Blood pressure systolic 120 mm Hg 04/12/20 25 Blood pressure diastolic 70 mm Hg 025 Height 63.50 in 04/12/2025 BMI 19.21 kg/m2 04/12/2025 Encounters Encounter Location Date Provider Diagnosis [facility] [address] [facility] [address] [place], [place] [phone] 04/12/2025 R Luis A Betancourt Tobacco use disorder F17.200 ; Chronic obstructive pulmonary disease, unspecified COPD type J44.9 ; Atelectasis of both lungs J98.11 and FRANSISCO (obstructive sleep apnea) G47.33 Assessments Encounter Date Diagnosis (ICD Code) Assessment Notes Treatment Notes Treatment Clinical Notes Section Notes 04/12/2025 Tobacco use disorder (ICD-10 - F17.200) 04/12/2025 Chronic obstructive pulmonary disease, unspecified COPD type (ICD-10 - J44.9) 04/12/2025 Atelectasis of both lungs (ICD-10 - J98.11) 04/12/2025 FRANSISCO (obstructive sleep apnea) (ICD-10 - G47.33) Plan Of Treatment Next Appt Details Follow Up: via phone to repo rt test results, Reason: Provider Name:Keeley Giordano, 02/19/2026 10:45:00 AM, [address], [address], [place], [place], [phone], Progress Notes * ANTONIA NARVAEZDOB:1950 (75 yo F)Acc No.[id number]:04/12/2025 Progress Notes Patient: ANTONIA VILLARREAL Provider: Keeley Betancourt M.D. :1950 A ge:74 Y S ex:Female Date:04/12/2025 Address:[address] [place], [place] [phone] Subjective: * Chief Complaints: * 1 . F/U DR Coronado. * HPI: N eurology: Antonia had a recent routine follow-up with Dr. Coronado regarding her sleep apnea. Routine chest x-ray that was obtained which reported some persistent atelectasis in the left lower lobe. With this finding, Dr. Coronado scheduled her to follow-up here. Dr. Coronado was likely not aware of previous low-dose lung scan showing similar findings. she is due for her annual low-dose lung scan. C ardiology: She is in the process of cardiac workup by Dr. Abdi. She has had an echo, heart cath, and arterial Doppler studies of her legs. She is scheduled to follow-up with Dr. Abdi later this month. * ROS: O PTHALMOLOGY: Negative for d enies vision issues. * Medical History: H yperlipidemia, Dysplastic colon polyp 1999, Sleep apnea on c-PAP, OA, Vitamin D deficiency, Seasonal allergies, DJD of lumbar spine, 45 pack year smoking history as of 2017, Osteoporosis, ECHO 02/2023 - severely dilated left atrium. * Surgical History: r uptered disc/back surgery 1993, tubal 1976, carpal tunnel 2000, Colonoscopy/Dr. Garibay/polyp 09/2010, ORIF left femur fracture 10/2017, left hip replacement - Dr. Chung 04/2018, Stent placement both legs 03/2021, Cataract Surgery 05/2022, Right Hip Replacement Total 05/02/2024. * Hospitalization/Major Diagno stic Procedure: Iveth carrion- [facility] in [place] 11/2014. * Family History: F [...] ouside US: no. * Medications: T aking Nabumetone 500 MG Tablet 1 tablet Orally [...] capsule orally once a day , Taking Ferrous Sulfate 325 (65 Fe) MG Tablet Delayed Release 1 tablet Orally once daily , Taking Albuterol Sulfate HFA 108 (90 Base) MCG/ACT Aerosol Solution 2 puff(s) inhaled every 6 hours prn , Taking Alendronate Sodium 70 MG Tablet 1 tab(s) [...] tab(s) orally once a day , Taking DULoxetine HCl 60 MG Capsule Delayed Release Particles 1 capsule Orally Once a day , Taking Atorvastatin Calcium 40 MG Tablet TAKE 1 TABLET BY MOUTH ONCE DAILY AT BEDTIME , Not-Taking DULoxetine HCl 30 MG Capsule Delayed Release Particles 1 capsule Orally Once a day , Medication List reviewed and reconciled with the patient * Allergies: M oxifloxacin: GI, Ibandronic Acid: BP high and low, Cefdinir: disoriented - Side Effects. Objective: * Vitals: W t: 110.2, Temp: 98.6, BP: 120/70, Nurse: [facility], Ht: 63.50, BMI:19.21. * Examination: G eneral Examination: General Appearance: N AD. H eart: R SR. L ungs:?Breath sounds are generally diminished but otherwise clear.. Assessment: * Assessment: 1. T obacco use disorder - F17.200 (Primary) 2 . C hronic obstructive pulmonary disease, unspecified COPD type - J44.9 3 . A telectasis of both lungs - J98.11 4 . O SA (obstructive sleep apnea) - G47.33 Plan: * Treatment: * Procedure Codes: G 2211 Complex e/m visit add on, G8783 BP SCR PRFRM RCMDD DEFIND SCR INTVL, G8752 MOST RECENT SYSTOLIC BP < 140MM HG, G8754 MOST RECENT DIASTOLIC BP < 90MM HG, G9902 Pt scrn tbco and id as user * Follow Up: v ia phone to report test results * Images: Billing Information: * Visit Code: 48176 Office Visit, Est Pt., Level 3. * Procedure Codes: G2211 Complex e/m visit add on. G8783 BP SCR PRFRM RCMDD DEFIND SCR INTVL. G8752 MOST RECENT SYSTOLIC BP < 140MM HG. G8754 MOST RECENT DIASTOLIC BP < 90MM HG. G9902 Pt scrn tbco and id as user. * Electronic signature of Keeley Betancourt MD on 09/15/2025 at 08:34 PM EST Sign off status: Pending * Provider: Keeley Betancourt M.D. Date: 0 04/12/2025 Generated for Nithya linares/Lela/Aneesh on: 1 11/15/2024 08:34 PM EST History and Physical Notes * Examination Category Sub-Category Detail Notes Category Not es General Examination Heart: RSR Lungs: Breath sounds are ge nerally diminished but otherwise clear. General Appearance: NAD
--- OUTSIDE RECORDS SUMMARY | 2025-04-12 09:15 | XMS_ITS ---
Author Organization [facility] Address [address] [facility] [address] [place] [phone] Care Team Providers Care Family Protection Specialist Name Role Phone Keeley Betancourt Primary [...] Status W/U Status Risk Notes Problem Atelectasis (71747318) Atelectasis of both lungs (J98.11) Active confirmed Vital Signs Blood pressure systolic 120 mm Hg 04/12/20 25 Blood pressure diastolic 70 mm Hg 025 Height 63.50 in 04/12/2025 Weight 110.2 lbs 04/12/2025 BMI 19.21 kg/m2 04/12/2025 Encounters Encounter Location Date Provider Diagnosis [facility] [address] [facility] [address] [place], [place] [phone] 04/12/2025 R Luis A Betancourt Tobacco use [...] [address], [address], [place], [place], [phone], Progress Notes * ANTONIA NARVAEZDOB:1950 (75 yo F)Acc No.[id number]:04/12/2025 Progress Notes Patient: ANTONIA VILLARREAL Provider: Keeley Betancourt M.D. :1950 A ge:74 Y S ex:Female Date:04/12/2025 Address:[address] [place], [place] [phone] Subjective: * Chief Complaints: * 1 . [...] Hospitalization/Major Diagno stic Procedure: Iveth carrion- [facility] in [place] 11/2014. * Family History: F ather: , [...] t: 110.2, Temp: 98.6, BP: 120/70, Nurse: [facility], Ht: 63.50, BMI:19.21. * Examination: G eneral [...] * Images: Billing Information: * Visit Code: 53422 Office Visit, Est Pt., Level 3. * Procedure Codes: G2211 Complex e/m visit add on. G8783 BP SCR PRFRM RCMDD DEFIND SCR INTVL. G8752 MOST RECENT SYSTOLIC BP < 140MM HG. G8754 MOST RECENT DIASTOLIC BP < 90MM HG. G9902 Pt scrn tbco and id as user. * Electronic signature of Keeley Betancourt MD on 09/17/2025 at 08:51 AM EST Sign off status: Pending * Provider: Keeley Betancourt M.D. Date: 0 04/12/2025 Generated for Nithya linares/Lela/Aneesh on: 1 11/17/2024 08:51 AM EST History and Physical Notes * Examination Category Sub-Category Detail Notes Category Not es General Examination Heart: RSR Lungs: Breath sounds are ge nerally diminished but otherwise clear. General Appearance: NAD
--- OUTSIDE RECORDS SUMMARY | 2025-08-21 04:00 | XMS_ITS ---
Author Organization [facility] Address [address] [facility] [address] [place] [id number] Care Team Providers Care Nsh Teacher Name Role Phone Keeley Betancourt Primary Care Provider [phone] Allergies Allergen (clinical drug ingredient) Drug/Non Drug Allergy documented on EMR Reaction Allergy Type Onset Date Status cefdinir Cefdinir disoriented Drug Allergy Activ e ibandronic acid Ibandronic Acid BP high and low Drug Allergy Active moxifloxacin Moxifloxacin GI Drug Allergy A ctive Results Component Value Reference Range Notes Urinalysis - Inhouse Reviewed date:08/22/2025 11:35:09 AM Interpretation: Performing Lab: Notes/Report: Color/Clarity yellow Leuk neg Nitrite neg Urobili neg Protein 1.020 pH neg Blood 7.6 Sp. Gr. neg Ketone 16 Bili neg Gluc 1+ CBC Venipuncture (in house) Reviewed date:08/22/2025 11:35:09 AM Interpretation:HGB 10.5 Performing Lab: Notes/Report: HGB 10.5 wbc 9.0 3.5 - 10 lymph 10.4 15 - 50 mid 4.4 2 - 15 gran 85.2 35 - 80 rbc 3.24 3.5 - 5.5 hgb 10.5 11.5 - 16.5 hct 31.3 35 - 55 mcv 96.4 75 - 100 mch 32.5 25 - 35 mchc 33.7 31 - 38 platlet 392 100 - 400 P-Comprehensive Metabolic Pa yoseph (CMP) Reviewed date:08/22/2025 11:35:09 AM Interpretation:normal Performing Lab: Notes/Report: Test performed by [facility] [address] [place], [place] [address] [address] , [address], [place] [address] Gamal Haywood MD, Auger Press Operator CLIA: [id number] Sodium 135 135-145 mmol/L Potassium 4.8 3.5-5.3 mmol/L Chloride 98 97-108 mmol/L CO2 30 20-32 mmol/L Glucose 79 65-99 mg/dL BUN 16 8-23 mg/dL Creatinine 0.63 0.50-1.00 mg/dL Calcium 9.7 8.6-10.4 mg/dL eGFR by Creatinine 91 >59 mL/min/1.73m2 Protein 6.4 6.0-8.3 g/dL Albumin 4.2 3.5-5.3 g/dL Alkaline Phosphatase 48 35-121 IU/L ALT (SGPT) 14 <5-47 IU/L AST (SGOT) 14 <5-40 IU/L Bilirubin, Total 0.3 <0.2-1.2 mg/dL A/G Ratio 1.9 1.1-2.5 P-Culture, Urine Reviewed date:08/27/2025 10:01:44 AM Interpretation:Abnormal Performing Lab: Notes/Report: Test performed by [facility] [address] [place] [address] , [address], [place] [address] Gamal Haywood MD, Auger Press Operator CLIA: [id number] Specimen Source Urine - Void Culture, Urine See Below See Microbiol ogy Report Pseudomonas aeruginosa 50,000-100,000 CF U/ml Pseudomonas aeruginosa Non-viable for sensitivities P-Lipid Panel Reviewed date:08/22/2025 11:35:09 AM Interpretation:LDL 76 Performing Lab: Notes/Report: Test performed by [facility] [address] [place], [place] [address] [address] , [address], [place] [address] Gamal Haywood MD, Auger Press Operator CLIA: [id number] Lipid Panel Footnote See Below *Based on optimal reference values. Please refer to the DOS for additional information regarding diagnostic lipid reference ranges, patient management based on the recently updated lipid guidelines ([place] [employer]/[place] [employer] Association Task Force on Clinical Practice Guidelines (2018), and pediatric diagnostic lipid reference values (<18 years old). Total Cholesterol 143 <200 mg/dL Triglycerides 65 <150 mg/dL HDL Cholesterol 54 >50 mg/dL Total Cholesterol / HDL Ratio* 2.65 <3.99 Ratio Non-HDL Cholesterol 89 <130 mg/dL LDL Cholesterol (Calculation) 76 <100 mg/dL LDL / HDL Ratio* 1.41 <1.99 Ratio ____ LDL Cholesterol Patient History ____ Test Date: 08/24/2024 LDL Results: 90 Units: mg/dL % Change: -15% ---- Test Date: 02/15/2025 LDL Results: 88 Units: mg/dL % Change: -2% ---- Test Date: 08/21/2025 LDL Results: 76 Units: mg/dL % Change: -13% ____ REASON FOR VISIT 6 months, Needs labs & flu vaccine Medications Medication SIG (Take, Route, Frequency, Duration) Notes Start Date End Date Status Nitroglycerin 0.4 MG 1 tab(s) sublingual ly every 5 minutes prn chest pain 11/28/2020 Active CareTouch CPAP & BIPAP Hose 1 DIRECTED 11/10/19 19 Active Aspir-Low 81 MG 1 tab(s) orally once a day; Duration: 30 day(s) Active Omeprazole 40 MG 1 cap(s) orally once a day; Duration: 30 day(s) 11/28/2020 Active Calcium + Vitamin D3 600-5 MG-MCG 1 tab(s) orally TID Active Clopidogrel Bisulfate 75 MG 1 tab(s) ora lly once a day Active DULoxetine HCl 60 MG 1 capsule Orally On ce a day; Duration: 90 days Active Megestrol Acetate 40 MG/ML 10ml Orally Once a day Active predniSONE 20 MG 1 tablet with food o r milk Orally Once a day Active Nabumetone 500 MG 1 tablet Orally Twic e a day; Duration: 30 day(s) Active amLODIPine Besylate 10 MG 1 tab(s) Orall y once a day Active Furosemide 40 MG 1/2 tab(s) orally on ce a day Active Metoprolol Succinate 100 MG 1 tab(s) ora lly once a day Active Flonase Allergy Relief 50 MCG/ACT 2 spray(s) intranasally once a day Active Benazepril HCl 40 MG 1 tab(s) orally onc e a day Active Alendronate Sodium 70 MG 1 tab(s) orally once a week Active Atorvastatin Calcium 40 MG 1 tab(s) oral ly once a day (at bedtime) Active Albuterol Sulfate HFA 108 (90 Base) MCG/ACT INHALE 2 PUFFS BY MOUTH EVERY 6 HOURS NEEDED; Duration: 25 Active Atorvastatin Calcium 40 MG TAKE 1 TABLET BY MOUTH ONCE DAILY AT BEDTIME; Duration: 90 Active Ferrous Sulfate 325 (65 Fe) MG 1 tablet Orally once daily 08/28/2024 Active July Allergy 180 MG 1 tab(s) orally o nce a day 02/21/2021 Active Vitamin D3 25 MCG (1000 UT) 1 capsule or ally once a day Active traMADol HCl 50 MG 1-2 tab(s) Orally q6h prn 06/20 Active Immunizations Vaccine Route Administration Date Status Comme nts Fluzone High Dose (65yr and older) IM Intramuscular 08/21/2025 Administered Problems Problem Type SNOMED Code ICD Code Onset Dates Problem Status W/U Status Risk Notes Problem Small cell lung cancer ([id number]) Small cell lung cancer (C34.90) Active confirmed Vital Signs Blood pressure systolic 120 mm Hg 08/21/20 25 Blood pressure diastolic 60 mm Hg 025 Heart Rate 42 /min 08/21/2025 Height 63.50 in 08/21/2025 Weight 120 lbs 08/21/2025 BMI 20.92 kg/m2 08/21/2025 Encounters Encounter Location Date Provider Diagnosis [facility] [address] [place], [place] [id number] 08/21/2025 Keeley Betancourt Essential hypertensi on I10 ; Chronic obstructive pulmonary disease, unspecified COPD type J44.9 ; Small cell lung cancer C34.90 ; Dyslipidemia E78.5 ; Primary osteoarthritis involving multiple joints M15.0 ; FRANSISCO (obstructive sleep apnea) G47.33 ; PAD (peripheral artery disease) I73.9 ; Seasonal allergies J30.2 ; Vitamin D deficiency E55.9 ; Tobacco use disorder F17.200 ; Anemia D64.9 ; Dysuria R30.0 ; History of cigarette smoking Z87.891 ; Vitamin B12 deficiency E53.8 ; Osteoporosis, unspecified M81.0 ; Encounter for immunization Z23 and BMI 20.0-20.9, adult Z68.20 Assessments Encounter Date Diagnosis (ICD Code) Assessment Notes Treatment Notes Treatment Clinical Notes Section Notes 08/21/2025 Essential hypertension (ICD-10 - I10) 08/21/2025 Chronic obstructive pulmonary disease, unspecified COPD type (ICD-10 - J44.9) 08/21/2025 Small cell lung cancer (ICD-10 - C34.90) Continue follow-up with Dr. Brannon, Dr. Rojas, and radiation oncology in [place]. 08/21/2025 Dyslipidemia (ICD-10 - E78.5) 08/21/2025 Primary osteoarthritis involving multiple joints (ICD-10 - M15.0) 08/21/2025 FRANSISCO (obstructive sleep apnea) (ICD-10 - G47.33) 08/21/2025 PAD (peripheral artery disease) (ICD-10 - I73.9) 08/21/2025 Seasonal allergies (ICD-10 - J30.2) 08/21/2025 Vitamin D deficiency (ICD-10 - E55.9) 08/21/2025 Tobacco use disorder (ICD-10 - F17.200) 08/21/2025 Anemia (ICD-10 - D64.9) 08/21/2025 Dysuria (ICD-10 - R30.0) 08/21/2025 History of cigarette smoking (ICD-10 - Z87.891) 08/21/2025 Vitamin B12 deficiency (ICD-10 - E53.8) 08/21/2025 Osteoporosis, unspecified (ICD-10 - M81.0) 08/21/2025 Encounter for immunization (ICD-10 - Z23) 08/21/2025 BMI 20.0-20.9, adult (ICD-10 - Z68.20) Plan Of Treatment Medication Medication Name Sig Start Date Stop Date Notes Clopidogrel Bisulfate 75 MG 1 tab(s) orally once a day DULoxetine HCl 60 MG 1 capsule Orally On ce a day; Duration: 90 days amLODIPine Besylate 10 MG 1 tab(s) Orally once a day Furosemide 40 MG 1/2 tab(s) orally once a day Metoprolol Succinate 100 MG 1 tab(s) orally once a day Flonase Allergy Relief 50 MCG/ACT 2 spray(s) intranasally once a day Benazepril HCl 40 MG 1 tab(s) orally once a day Alendronate Sodium 70 MG 1 tab(s) orally once a week Atorvastatin Calcium 40 MG 1 tab(s) oral ly once a day (at bedtime) Treatment Notes Assessment Notes Small cell lung cancer Continue follow-u p with Dr. Brannon, Dr. Rojas, and radiation oncology in [place]. Next Appt Details Follow Up: 6 Months, Reason: Provider Name:Keeley Giordano, 02/19/2026 10:45:00 AM, [address] [facility], [address] , [place], [place], [id number], Progress Notes * NIHARIKA NARVAEZDOB:1950 (75 yo F)Acc No.[id number]:08/21/2025 Progress Notes Patient: S NIHARIKA TORRES Provider: Keeley Betancourt M.D. :1950 A ge:75 Y S ex:Female Date:08/21/2025 Address:[address], [id number] Subjective: * Chief Complaints: * 1 . 6 months. 2. Needs labs & flu vaccine. * HPI: H PI: Patient is here today for 6 months checkup and labs. Pt is fasting. Pt states she wants a UA and flu shot. Pt states she needs refills on meds . Since her last office visit, she has been diagnosed with small cell lung cancer after findings of an abnormal LDCT. She has been following with Dr. Brannon, Dr. Rojas and also with radiation oncology in [place]. Her brain MRI and CT scan of the abdomen and pelvis reportedly showed no evidence of metastatic disease. S he has completed a round of radiation therapy and is awaiting follow-up scans. G astroenterology: She also had an EGD with Dr. Judd because of her anemia and weight loss and was found to have grade 1 esophageal varices. He initiated treatment with Megace because of her weight loss. This was done prior to her confirmed diagnosis of small cell lung cancer. C ardiology: She underwent a heart cath in June by Dr. Abdi with finding of minor blockages and did not require intervention. U rology: c/o burning sensation d uring urination. Pt states this just statred last week . c/o flank pain r ight-sided. Denies : frequent urination. D enies : Urine Odor. D enies : Vaginal Itching. D enies : Pressure. * ROS: D ERMATOLOGY: no R radha. n o H jt. G ASTROENTEROLOGY: no N ausea. n o V omiting. n o D iarrhea.? U ROLOGY: no D ifficulty urinating. n o B lood in urine. * Medical History: H yperlipidemia, Dysplastic colon polyp 1999, Sleep apnea on c-PAP, OA, Vitamin D deficiency, Seasonal allergies, DJD of lumbar spine, 45 pack year smoking history as of 2016, Osteoporosis, ECHO 02/2023 - severely dilated left atrium, Small cell lung cancer - diagnosed 06/2025 - s/p radiation treatments. * Surgical History: r uptered disc/back surgery 1993, tubal 1976, carpal tunnel 2000, Colonoscopy/Dr. Garibay/polyp 09/2010, ORIF left femur fracture 10/2017, left hip replacement - Dr. Chung 04/2018, Stent placement both legs 03/2021, Cataract Surgery 05/2022, Right Hip Replacement Total 05/02/2024, EGD/ [place]/ Gr 1 esophageal varices 05/2025, Heart cath/ [place]/ minor blockages. no intervention 06/2025. * Hospitalization/Major Diagno stic Procedure: Iveth carrion- [facility] in [place] 11/2014. * Family History: F [...] ouside US: no. * Medications: T aking predniSONE 20 MG Tablet 1 tablet with food or milk Orally Once a day , Taking Megestrol Acetate 40 MG/ML Suspension 10ml Orally Once a day , Taking Nabumetone 500 MG [...] 1 tablet Orally once daily , Taking Alendronate Sodium 70 MG Tablet [...] BY MOUTH ONCE DAILY AT BEDTIME , Taking Albuterol Sulfate HFA 108 (90 Base) MCG/ACT Aerosol Solution INHALE 2 PUFFS BY MOUTH EVERY 6 HOURS NEEDED , Discontinued DULoxetine HCl 30 MG Capsule Delayed Release Particles 1 capsule Orally Once a day , Medication List reviewed and reconciled with the patient * Allergies: M oxifloxacin: GI, Ibandronic Acid: BP high and low, Cefdinir: disoriented - Side Effects. Objective: * Vitals: W t: 120, Temp: 97.7, BP: 120/60, HR: 42, Nurse: beth, Ht: 63.50, BMI:20.92. * Examination: C ardiology: General Appearance: A ppears frail but has gained some weight. C arotid upstroke: n ormal, no bruits. H eart sounds: R RR, normal S1, S2. M urmur, click , gallop: n one. L ungs: c ourse BS. A bdomen: p ositive BS, soft, nontender. E xtremities: n o leg edema. Assessment: * Assessment: 1. E ssential hypertension - I10 (Primary) 2 . C hronic obstructive pulmonary disease, unspecified COPD type - J44.9 3 . S mall cell lung cancer - C34.90? 4. D yslipidemia - E78.5 5 . P rimary osteoarthritis involving multiple joints - M15.0 6 . O SA (obstructive sleep apnea) - G47.33 ? 7 . P AD (peripheral artery disease) - I73.9 8 . S easonal allergies - J30.2 9 . V itamin D deficiency - E55.9 1 0. T obacco use disorder - F17.200 1 1. A nemia - D64.9 1 2. D ysuria - R30.0 1 3. H istory of cigarette smoking - Z87.891 1 4. V itamin B12 deficiency - E53.8 1 5. O steoporosis, unspecified - M81.0 1 6. E ncounter for immunization - Z23 1 7. B IN 20.0-20.9, adult - Z68.20? Plan: * Treatment: Value Reference Range A /G Ratio 1.9 1.1-2.5 - * A lbumin 4.2 3.5-5.3 - g/dL * A lkaline Phosphatase 48 35-121 - IU/L * A LT (SGPT) 14 <5-47 - IU/L * A ST (SGOT) 14 <5-40 - IU/L * B ilirubin, Total 0.3 <0.2-1.2 - mg/dL * B UN 16 8-23 - mg/dL * C alcium 9.7 8.6-10.4 - mg/dL * C hloride 98 97-108 - mmol/L * C O2 30 20-32 - mmol/L * C reatinine 0.63 0.50-1.00 - mg/dL * G lucose 79 65-99 - mg/dL * P otassium 4.8 3.5-5.3 - mmol/L * S odium 135 135-145 - mmol/L * P rotein 6.4 6.0-8.3 - g/dL * e GFR by Creatinine 91 >59 - mL/min/1.73m2 * Keeley Betancourt 08/22/2025 11:34:56 AM EDT > See phone encounter ?LAB: CBC Venipuncture (in house) (Collection Date & Time - 08/21/2025)?HGB 10.5* Value Reference Range w bc 9.0 3.5 - 10 * l ymph 10.4 15 - 50 * m id 4.4 2 - 15 * g ran 85.2 35 - 80 * r bc 3.24 3.5 - 5.5 * h gb 10.5 11.5 - 16.5 * h ct 31.3 35 - 55 * m cv 96.4 75 - 100 * m ch 32.5 25 - 35 * m chc 33.7 31 - 38 * p latlet 392 100 - 400 * Micki Olmstead 08/21/2025 01:04:22 PM EDT > Keeley Betancourt 08/22/2025 11:34:56 AM EDT > See phone encounter 2.?Small cell lung cancer? Notes: Continue follow-up with Dr. Brannon, Dr. Rojas, and radiation oncology in [place].? 3.?Dyslipidemia? Refill Atorvastatin Calcium Tablet, 40 MG, 1 tab(s), orally, once a day (at bedtime), 90, Refills 3.?LAB: P-Lipid Panel (Collection Date & Time - 08/21/2025 09:57 AM)?LDL 76* Value Reference Range C holesterol / HDL Ratio 2.65 <3.99 - Ratio * C holesterol 143 <200 - mg/dL * H DL Cholesterol 54 >50 - mg/dL * L DL Cholesterol (Calculation) 76 <100 - mg/d L * L DL/HDL Ratio 1.41 <1.99 - Ratio * N on-HDL Cholesterol 89 <130 - mg/dL * T riglycerides 65 <150 - mg/dL * L ipid Panel Footnote See Below - * Keeley Betancourt 08/22/2025 11:34:56 AM EDT > See phone encounter 4.?Primary osteoarthritis involving multiple joints? Refill DULoxetine HCl Capsule Delayed Release Particles, 60 MG, 1 capsule, Orally, Once a day, 90 days, 90 Capsule, Refills 3.??5.?PAD (peripheral artery disease)? Refill Clopidogrel Bisulfate Tablet, 75 MG, 1 tab(s), orally, once a day, 90, Refills 3.??6.?Seasonal allergies? Refill Flonase Allergy Relief Suspension, 50 MCG/ACT, 2 spray(s), intranasally, once a day, 1, Refills 3.??7.?Dysuria?LAB: P-Culture, Urine (Collection Date & Time - 08/21/2025 09:57 AM)? Abnormal* Value Reference Range C ulture, Urine See Below - * S pecimen Source Urine - Void - * P seudomonas aeruginosa 50,000-100,000 CFU/ml Pseudomonas aeruginosa - * Lori Batista 08/27/2025 10: 01:40 AM EDT > See phone encounter 8.?Others? Refill Alendronate Sodium Tablet, 70 MG, 1 tab(s), orally, once a week, 12, Refills 3.?? * Immunizations: Fluzone High Dose (65yr and older) : 0.5 mL (Route: Intramuscular) given by ALEX Moss , Auto Clutch Specialist on Left Deltoid (Encounter for immunization) * Labs: * L ab: Urinalysis - Inhouse (Collection Date & Time - 08/21/2025) Value Reference Range C olor/Clarity yellow * L euk neg * N itrite neg * U robili neg * P rotein 1.020 * p H neg * B lood 7.6 * S p. Gr. neg * K etone 16 * B aleksandr neg * G jan 1+ * Micki Olmstead 08/21/2025 11:05:35 AM EDT > Provider reviewed results while patient in office. Keeley Betancourt 08/22/2025 11:34:56 AM EDT > See phone encounter * Procedure Codes: G 2211 Complex e/[place], [address] CBC WITH AUTO DIFF, 82004 Urinalysis, no micro, G8950 PREHTN/HTN BP DOC INDCD F/U DOC, G8752 MOST RECENT SYSTOLIC BP < 140MM HG, G8754 MOST RECENT DIASTOLIC BP < 90MM HG, 3074F SYST BP LT 130 MM HG, 3078F DIAST BP < 80 MM HG, G8420 BMI<30 AND >=22 CALC & DOCU * Follow Up: 6 Months * Images: Billing Information: * Visit Code: 46715 Office Visit, Est Pt., Level 4. * Procedure Codes: G2211 Complex e/[place]. [address] CBC WITH AUTO DIFF. 85972 Urinalysis, no micro. G8950 PREHTN/HTN BP DOC INDCD F/U DOC. G8752 MOST RECENT SYSTOLIC BP < 140MM HG. G8754 MOST RECENT DIASTOLIC BP < 90MM HG. 3074F SYST BP LT 130 MM HG. 3078F DIAST BP < 80 MM HG. G8420 BMI<30 AND >=22 CALC & DOCU. * Electronic signature of Keeley Betancourt MD on 09/17/2025 at 08:52 AM EST Sign off status: Pending * Provider: Keeley Betancourt M.D. Date: Generated for Nithya linares/Lela/eTransmitting on: 11/17/2024 08:52 AM EST History and Physical Notes * HPI (History of Present Illness) Category Sub-Category Detail Notes Category Not es Cardiology She underwent a heart cath in June by Dr. Abdi with finding of minor blockages and did not require intervention. Gastroenterology She also hutson d an EGD with Dr. Judd because of her anemia and weight loss and was found to have grade 1 esophageal varices. He initiated treatment with Megace because of her weight loss. This was done prior to her confirmed diagnosis of small cell lung cancer. Urology frequent urination burning sensation during urination. Pt states this just statred last week flank pain right-sided Urine Odor Vaginal Itching Pressure HPI Patient is here today for 6 karina hs checkup and labs. Pt is fasting. Pt states she wants a UA and flu shot. Pt states she needs refills on meds Since her last office visit, she has been diagnosed with small cell lung cancer after findings of an abnormal LDCT. She has been following with Dr. Brannon, Dr. Rojas and also with radiation oncology in [place]. Her brain MRI and CT scan of the abdomen and pelvis reportedly showed no evidence of metastatic disease. She has completed a round of radiation therapy and is awaiting follow-up scans. Examination Category Sub-Category Detail Notes Category Not es Cardiology Lungs: course BS Heart sounds: RRR, normal S1, S2 Abdomen: positive BS, soft, n ontender Carotid upstroke: normal, no bruits Extremities: no leg edema Murmur, click , gallop: none General Appearance: Appears frail but hutson s gained some weight
--- OUTSIDE RECORDS SUMMARY | 2025-08-21 04:00 | XMS_ITS ---
Author Organization [facility] Address [address] [facility] [address] [place] [id number] Care Team Providers Care Business Agent Name Role Phone Keeley Betancourt Primary Care Provider [phone] Allergies Allergen (clinical drug ingredient) Drug/Non Drug [...] Interpretation:normal Performing Lab: Notes/Report: Test performed by [facility] [address] [place], [place] [address] [place] , [address], [place] [address] Gamal Haywood MD, Legal Consultant CLIA: [id number] Sodium 135 135-145 mmol/L Potassium 4.8 3.5-5.3 [...] Interpretation:Abnormal Performing Lab: Notes/Report: Test performed by [facility] [address] [place] [address] , [address], [place] [address] Gamal Haywood MD, Legal Consultant CLIA: [id number] Specimen Source Urine - Void Culture, Urine See Below See Microbiol ogy Report Pseudomonas aeruginosa 50,000-100,000 CF U/ml Pseudomonas aeruginosa Non-viable for sensitivities P-Lipid Panel Reviewed date:08/22/2025 11:35:09 AM Interpretation:LDL 76 Performing Lab: Notes/Report: Test performed by [facility] [address] [place], [place] [address] [place] , [address], [place] [address] Gamal Haywood MD, Legal Consultant CLIA: [id number] Lipid Panel Footnote See Below *Based on optimal reference values. Please refer to the DOS for additional information regarding diagnostic lipid reference ranges, patient management based on the recently updated lipid guidelines ([place] [employer]iology/[place] Heart Association Task Force on Clinical Practice [...] Risk Notes Problem Small cell lung cancer (082232074) Small cell lung cancer (C34.90) Active confirmed Vital Signs Weight 120 lbs 08/21/2025 Blood pressure systolic 120 mm Hg 08/21/20 25 Blood pressure diastolic 60 mm Hg 025 Heart Rate 42 /min 08/21/2025 Height 63.50 in 08/21/2025 BMI 20.92 kg/m2 08/21/2025 Encounters Encounter Location Date Provider Diagnosis [facility] [address] [facility] [address] [place], [place] [id number] 08/21/2025 Keeley Betancourt Essential hypertensi on I10 [...] Brannon, Dr. Rojas, and radiation oncology in [place]. 08/21/2025 Dyslipidemia (ICD-10 - E78.5) 08/21/2025 Primary [...] Brannon, Dr. Rojas, and radiation oncology in [place]. Next Appt Details Follow Up: 6 Months, Reason: Provider Name:Keeley Giordano, 02/19/2026 10:45:00 AM, [address] [facility], [address] , [place], [place], [address], Progress Notes * NIHARIKA NARVAEZDOB:1950 (75 yo F)Acc No.[id number]:08/21/2025 Progress Notes Patient: S NIHARIKA TORRES Provider: Keeley Betancourt M.D. :1950 A ge:75 Y S ex:Female Date:08/21/2025 Address:[address], [id number] Subjective: * Chief Complaints: * 1 . [...] Rojas and also with radiation oncology in [place]. Her brain MRI and CT scan of [...] * Hospitalization/Major Diagno stic Procedure: Iveth carrion- [facility] in [place] 11/2014. * Family History: [...] for immunization - Z23 1 7. B [place] 20.0-20.9, adult - Z68.20? Plan: * Treatment: [...] Brannon, Dr. Rojas, and radiation oncology in [place].? 3.?Dyslipidemia? Refill Atorvastatin Calcium Tablet, 40 MG, [...] (Route: Intramuscular) given by ALEX Moss , Janitorial Supervisor on Left Deltoid (Encounter for immunization) [...] G 2211 Complex e/[place], [address] CBC WITH AUTO DIFF, 06528 Urinalysis, no micro, G8950 PREHTN/HTN BP DOC INDCD F/U DOC, G8752 MOST RECENT SYSTOLIC BP < 140MM HG, G8754 MOST RECENT DIASTOLIC BP < 90MM HG, 3074F SYST BP LT 130 MM HG, 3078F DIAST BP < 80 MM HG, G8420 BMI<30 AND >=22 CALC & DOCU * Follow Up: 6 Months * Images: Billing Information: * Visit Code: 72092 Office Visit, Est Pt., Level 4. * Procedure Codes: G2211 Complex e/[place]. [address] CBC WITH AUTO DIFF. 64730 Urinalysis, no micro. G8950 PREHTN/HTN BP DOC INDCD F/U DOC. G8752 MOST RECENT SYSTOLIC BP < 140MM HG. G8754 MOST RECENT DIASTOLIC BP < 90MM HG. 3074F SYST BP LT 130 MM HG. 3078F DIAST BP < 80 MM HG. G8420 BMI<30 AND >=22 CALC & DOCU. * Electronic signature of Keeley Betancourt MD on 09/15/2025 at 08:35 PM EST Sign off status: Pending * Provider: Keeley Betancourt M.D. Date: Generated for Nithya linares/Lela/eTransmitting on: 11/15/2024 08:35 PM EST History and Physical Notes * [...] Rojas and also with radiation oncology in [place]. Her brain MRI and CT scan of [...]
[2025-09-14 20:50] VITALS: BP 135/80; PULSE 82; RESP 21; TEMP 36.9; O2SAT 92; BMI 21.9
--- NOTE | 2025-09-14 20:56 | ECG_ITS ---
APPROVED REPORT Exam: Resting ECG HR:82 bpm ECG Measurements Heart Rate 82 AXES VA 161 P 59 QRSd 88 QRS 43 QT 357 T 126 QTc 396 Conclusion SINUS RHYTHM NONSPECIFIC ST & T-WAVE ABNORMALITY ABNORMAL ECG UNCONFIRMED REPORT Electronically signed by : JIMMY WALTON, 09/16/2025 02:19:11
--- NOTE | 2025-09-14 21:09 | CT_ITS ---
PROCEDURE INFORMATION: Exam: CTA Chest With Contrast Exam date and time: 09/14/2025 9:47 PM Age: 75 years old Clinical indication: Shortness of breath TECHNIQUE: Imaging protocol: Computed tomographic angiography of the chest with contrast. Exam focused on the arteries. 3D rendering (Not supervised by radiologist): MIP and/or 3D reconstructed images were created by the technologist. Radiation optimization: All CT scans at this facility use at least one of these dose optimization techniques: automated exposure control; mA and/or kV adjustment per patient size (includes targeted exams where dose is matched to clinical indication); or iterative reconstruction. Contrast material: ISO 370; Contrast volume: 80 ml; Contrast route: INTRAVENOUS (IV); COMPARISON: CT CHEST WO CON 06/12/2025 3:23 PM FINDINGS: Pulmonary arteries: Normal. No pulmonary emboli. Aorta: No aortic aneurysm or dissection. Significant calcific atherosclerotic disease of the transverse arch and descending aorta. There is severe calcific disease of the abdominal aorta with significant infrarenal narrowing noted. Thyroid: Nodular thyroid gland is again noted with the largest nodule on the right measuring 10 mm. Lungs: There are moderate to severe centrilobular emphysematous changes. The previously noted nodular airspace disease in the left upper lobe has nearly completely resolved. Two small residual nodular densities are noted, measuring up to 6 mm in size, remain on series 7, images 58 and 59. There is new diffuse interstitial prominence which may represent edema or acute inflammation. There are pleural-based densities noted within the superior segment of lower lobe in the posterior right upper lobe consistent with atelectasis and/or scarring. A few small nodular densities are noted bilaterally the largest measuring 6.5 mm within the left lower lobe series 7, image 93. No focal consolidation. Pleural spaces: Unremarkable. No pneumothorax. No pleural effusion. Heart: Unremarkable. No cardiomegaly. No pericardial effusion. Lymph nodes: Unremarkable. No enlarged lymph nodes. Bones/joints: There are moderate degenerative changes of the spine. No acute fracture. Soft tissues: Unremarkable. IMPRESSION: 1. No pulmonary embolus or acute aortic abnormality. 2. New interstitial prominence superimposed on significant emphysematous changes. This likely represents edema or inflammation. 3. Near-complete resolution of the nodular airspace disease medial left upper lobe. 4. Scattered bilateral pulmonary nodules similar to the prior study. COMMENTS: The presence of pulmonary emphysema on CT is an independent risk factor for lung cancer. In the absence of a history or active diagnosis of lung cancer, it is recommended that this patient with emphysema be evaluated for enrollment in a low dose CT lung cancer screening program.
[2025-09-14 21:10] LABS: Lactate Venous 1.6 mmol/L (0.4-2.0); VBG HCO3 31.6 mmol/L (23-30); VBG PH 7.32 mmol/L (7.31-7.41); VBG PO2 33.0 mmol/L (28-40)
--- OUTSIDE RECORDS SUMMARY | 2025-09-14 21:11 | XMS_ITS | Data Portability ---
Author Organization [place] - [facility] Address [address] [place] [address] Care Team Providers Care Technology Education Instructor Name Role Phone TARIQ CORCORAN Primary Care Provider JARED ROJAS Referring Provider LARS MEHTA Radiation Oncologist Assessment Encounter Date Assessment Date Assessment LastModified by Organization Details LastModified Time 08/13/2025 08/13/2025 Treatment summary: She was treated with SBRT technique covering the mass left upper lung after fusion with a PET-CT scan was treated by the 6 mV flattening filter oral photon beam treated by 3 arcs receive a dose of 5000 cGy delivered by 5 fractions between 08/02/2025 and completed on 08/13/2025 tolerated treatments well continued to have shortness of breath therefore we started her on prednisone 20 mg tablets twice a day for 10 days. She has an appointment to see Dr. Rojas next week. She will return to see us in 2 weeks for a follow-up with repeat chest x-ray. Because of poor memory and diminished in sexual activity fact that she is early stage this time there is no need for prophylactic brain irradiation and will followed by MRI of the brain in 3 months. Thanks for allowing us participate in the care of this pleasant patient. [email or web address] Not available 08/13/2025 11:39:56 08/27/2025 08/27/2025 Patient continued to do well no evidence of residual disease per recent chest x-ray. Will return to see us in 3 months for follow-up with repeat CT scan of the chest and abdomen. Interview and review of records lasted for 30 minutes. Thanks for allowing us participate in the care of this pleasant patient. [email or web address] Not available 08/27/2025 14:23:23 Plan of Treatment Reminders Order Date Submit Date Provider Last Modified By Organization Details Last Modified Time Details Appointments OV EST 15 2025 02:00P M Lars Mehta MD Not available Not available Not available Lab creatinin e w/ estimated GFR (eGFR), serum or plasma 2024 025 [facility] (Registration ), [address] [place] [address] [place], [address], 09/03/2025 04:15:04 Referral None recorded. Procedures None recorded. Surgeries None recorded. Imaging CT, chest + abdomen, w/ contrast - To be done in 3 mo (second week of November 2025) 2024 025 [facility] (Centralized Scheduling), [address] [place] [address] [place], [address], 09/03/2025 04:15:04 XR, chest, 2 view - Follow up after completin g radiation to lung [address] [facility] [address] [place] [address] Mariangel Doan, [place], [address], 08/23/2025 23:33:01 Medication Orders prednison e 20 mg tablet 2024 025 [facility], [address], [address], 09/03/2025 05:02:08 Patient TargetsNo targets recorded. Patient InstructionsNo instructions recorded. Reason for Referral None Reported. Results Created Date Observation Date Name Description Value Unit Range Abnormal Flag Note LastModifiedBy Organization Detail LastModifiedTime 07/30/2007/30/2025 PET-C T, skull base to mid-t high scan [facility] Name: [facility] InstituteDiscoverlya [facility] Phys: Sandra dickinson MD,[facility] MZOH[place] [address] : 1949 Age: 74 Sex: F Acct: [id number] Loc: Dhaval.PET PHONE #: Exam Date: 2024 Status : DEP CLI FAX #: [phone] Rad# [id number] Unit# [id number] Admit Date: 2024 EXAMS: CPT CODE: [id number] PET W/CT SKULL- MID THIGH 00041 EXAMIN ATION: SKULL BASE TO MID THIGH F-18 FDG PET/CT CLINIC AL INDICA TION: Female , 75 years old. SEE TECHNI QUE: Low dose, non-di agnost ic qualit y CT images were acquir ed from the skull base to the mid thighs for attenu ation correc tion and anatom ic locali zation . This was follow ed by positr on emissi on tomogr aphy (PET) imagin g in the same 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 Radiop harmac eutica l: 10.4 mCi of F-18 FDG. Recent blood sugar level: 93 mg/dl. Uptake time: 61 minute s. COMPAR DANIEL: None CORREL ATION: CT abdome n and pelvis Septem 2024; nuclea r medici ne bone scan Septem 2024 FINDIN GS: Refere nce backgr ound hepati c uptake maximu m SUV: 2.9 Refere nce medias tinal blood pool maximu m SUV: 2.2 HEAD AND NECK: 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 Non-di agnost ic CT findin gs: None. CHEST: Hetero geneou sly intens e uptake to the parame diasti nal left upper lobe bronch us, maximu m SUV of 8.5. There are multip le discon tiguou s satell ite nodule s noted, likely additi onal sites of locore gional diseas e. Subple ural nodula r densit ies are seen to the left upper lobe, series 3 image 96, no percep tible FDG uptake at this time. Additi onal subcen timete r nodule is seen to the left lower lobe, axial image 108, too small for reliab le charac teriza tion by PET. Conflu ent right lower lobe subple ural opacit y seen on axial image 66, no focal FDG uptake at this time. Non-di agnost ic CT findin gs: Modera te emphys alphonso. Partia lly calcif ied medias tinal and right hilar lymph nodes. PAGE 1 Signed Report (JEFF NUED) [facility] Name: NIHARIKA NARVAEZ FAY [address] [employer] Phys: Sandra dickinson [place] [address] : 1949 Age: 74 Sex: F Acct: [id number] Loc: G.PET PHONE #: [phone] Exam Date: 2024 Status : DEP CLI FAX #: Rad# [id number] Unit# [id number] Admit Date: 2024 EXAMS: CPT CODE: [id number] PET W/CT SKULL- MID THIGH 91863 ABDOME N AND PELVIS : Wide range of physio logic bowel uptake , limits evalua tion. Preston-b ladder artifa ct, limits evalua tion of FDG uptake to adjace nt soft tissue s. Within this limita tion, FDG uptake to the uterus cannot be exclud ed, very poorly evalua arabella on curren t examin ation. Maximu m SUV of 11.3. Non-di agnost ic CT findin gs: Hyperd ense during sludge versus small stones . Nonobs tructi ng right- sided nephro lithia sis. Severe aortoi liac athero sclero sis with greate r than 70% lumina l narrow ing to the abdomi nal aorta, series 2 image 146. MUSCUL OSKELE FLOYD: 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 Non-di agnost ic CT findin gs: Bilate ral hip prosth eses. Diffus e bony demine raliza tion. IMPRES CHRIS: Intens e uptake to left upper lobe parame diasti nal mass with satell ite nodule s, correl ate with report ed known primar y. Multip le additi onal bilate ral pulmon joe nodule s are seen at or below size thresh old for reliab le charac teriza tion by PET. Recomm end attent ion on follow -up. Evalua tion of pelvic viscer a is limite d by streak artifa ct from bilate ral hip prosth eses as well as preston-b ladder artifa ct. Within these limita tions, there appear s to be FDG uptake to the uterus , recomm end correl ation with pelvic ultras ound and/or MRI female pelvis to exclud e endome trial or uterin e malign thompson. Electr onical ly signed by: Tomas pope MD 2024 12:17 PM EDT RP Workst ation: [id number] Electr onical ly Signed by TOMAS POPE MD on 2024 at 1209 Report ed and signed by: TOMAS GRAMAJO MD PAGE 2 Signed Report (JEFF NUROLDAN) [facility] Name: NIHARIKA NARVAEZ FAY [employer] [facility] [employer] Phys: Sandra dickinson MD,[facility] [place] [address] : 1949 Age: 74 Sex: F Acct: [id number] Loc: G.PET PHONE #: [phone] Exam Date: 2024 Status : DEP CLI FAX #: Rad# [id number] Unit# [id number] Admit Date: 2024 EXAMS: CPT CODE: [id number] PET W/CT SKULL- MID THIGH 02890 CC: Peter Giordano M.D.; Lars dickinson MD Dictat ed Date/T nayeli: 2024 (1209) Techno logist : TIFFANY SHARP, PAVING [employer]ONE INSTALLER Transc ribed Date/T nayeli: 2024 (1209) Transc riptio nist: DR.IND Dumont onic Signat ure Date/T nayeli: 2024 (1209) Printe d Date/T nayeli: 2024 (1221) BATCH NO: N/A PAGE 3 Signed Report CC'ed Logic: Orderi milagros Provid er: SANDRA SOUSA Attend ing Provid er: SANDRA SOUSA Referr ing Provid er: SANDRA SOUSA Consul ting Provid er: MILLY [facility] [address] , [place], [address], 07/30/2025 13:12:15 07/30/20 25 07/30/2025 PET-C T, skull base to mid-t high scan [facility] Name: NIHARIKA NARVAEZ FAY [facility] [employer] [employer] [address] Phys: Sandra [place] [address] : 1949 Age: 74 Sex: F Acct: [id number] Loc: Dhaval.PET PHONE #: Exam Date: 2024 Status : DEP CLI FAX #: [phone] Rad# [id number] Unit# [id number] Admit Date: 2024 Report Has Been Amende d EXAMS: CPT CODE: [id number] PET W/CT SKULL- MID THIGH 88677 Addend - 2024 SIGNED 2024 ADDEND UM: [id number] PET/WC TSKMT ADDEND UM #1 Greate r than 70% lumina l narrow ing to the abdomi nal aorta, heavy calcif ied athero sclero sis. Recomm end correl ation with CT angiog jaxson abdome n and pelvis for furthe r assess ment. Electr onical ly signed by: Tomas pope MD 2024 03:03 PM EDT RP Workst ation: [id number] ORIGIN AL REPORT EXAMIN ATION: SKULL BASE TO MID THIGH F-18 FDG PET/CT CLINIC AL INDICA TION: Female , 75 years old. SEE TECHNI QUE: Low dose, non-di agnost ic qualit y CT images were acquir ed from the skull base to the mid thighs for attenu ation correc tion and anatom ic [facility] . This was follow ed by positr on emissi on tomogr aphy (PET) imagin g in the same 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 Radiop harmac eutica l: 10.4 mCi of F-18 FDG. Recent blood sugar level: 93 mg/dl. Uptake time: 61 minute s. COMPAR DANIEL: None CORREL ATION: CT abdome n and pelvis Septem 2024; nuclea r medici ne bone scan Septem 2024 FINDIN GS: Refere nce backgr ound hepati c uptake maximu m SUV: 2.9 Refere nce medias tinal blood pool maximu m SUV: 2.2 HEAD AND NECK: PAGE 1 Signed Report (JEFFAnne MUSTAFA) [facility] Name: NIHARIKA NARVAEZ FAY [address] [employer] Phys: Sandra dickinson MD,[facility] [place] [address] : 1949 Age: 74 Sex: F Acct: [id number] Loc: G.PET PHONE #: [phone] Exam Date: 2024 Status : DEP CLI FAX #: Rad# [id number] Unit# [id number] Admit Date: 2024 Report Has Been Amende d EXAMS: CPT CODE: [id number] PET W/CT SKULL- MID THIGH 19510 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 Non-di agnost ic CT findin gs: None. CHEST: Hetero geneou sly intens e uptake to the parame diasti nal left upper lobe bronch us, maximu m SUV of 8.5. There are multip le discon tiguou s satell ite nodule s noted, likely additi onal sites of locore gional diseas e. Subple ural nodula r densit ies are seen to the left upper lobe, series 3 image 96, no percep tible FDG uptake at this time. Additi onal subcen timete r nodule is seen to the left lower lobe, axial image 108, too small for reliab le charac teriza tion by PET. Conflu ent right lower lobe subple ural opacit y seen on axial image 66, no focal FDG uptake at this time. Non-di agnost ic CT findin gs: Modera te emphys alphonso. Partia lly calcif ied medias tinal and right hilar lymph nodes. ABDOME N AND PELVIS : Wide range of physio logic bowel uptake , limits evalua tion. Preston-b ladder artifa ct, limits evalua tion of FDG uptake to adjace nt soft tissue s. Within this limita tion, FDG uptake to the uterus cannot be exclud ed, very poorly evalua arabella on curren t examin ation. Maximu m SUV of 11.3. Non-di agnost ic CT findin gs: Hyperd ense during sludge versus small stones . Nonobs tructi ng right- sided nephro lithia sis. Severe aortoi liac athero sclero sis with greate r than 70% lumina l narrow ing to the abdomi nal aorta, series 2 image 146. MUSCUL OSKELE FLOYD: 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 Non-di agnost ic CT findin gs: Bilate ral hip prosth eses. Diffus e bony demine raliza tion. IMPRES CHRIS: PAGE 2 Signed Report (JEFF NUROLDAN) [facility] Name: NIHARIKA NARVAEZ FAY [address] [facility] [address] Phys: Sandra [place] [address] : 1949 Age: 74 Sex: F Acct: [id number] Loc: G.PET PHONE #: Exam Date: 2024 Status : DEP CLI FAX #: [phone] Rad# [id number] Unit# [id number] Admit Date: 2024 Report Has Been Amende d EXAMS: CPT CODE: [id number] 457 PET W/CT SKULL- MID THIGH 28947 Intens e uptake to left upper lobe parame diasti nal mass with satell ite nodule s, correl ate with report ed known primar y. Multip le additi onal bilate ral pulmon joe nodule s are seen at or below size thresh old for reliab le charac teriza tion by PET. Recomm end attent ion on follow -up. Evalua tion of pelvic viscer a is limite d by streak artifa ct from bilate ral hip prosth eses as well as preston-b ladder artifa ct. Within these limita tions, there appear s to be FDG uptake to the uterus , recomm end correl ation with pelvic ultras ound and/or MRI female pelvis to exclud e endome trial or uterin e malign thompson. Electr onical ly signed by: Tomas pope MD 2024 12:17 PM EDT RP Workst ation: [id number] Electr onical ly Signed by TOMAS POPE MD on 2024 at 1503 Report ed and signed by: TOMAS GRAMAJO MD Dictat ed Date/T nayeli: 2024 (1503) Transc ribed: 2024 (1503) DR.IND DEL VALLE Report EXAMIN ATION: SKULL BASE TO MID THIGH F-18 FDG PET/CT CLINIC AL INDICA TION: Female , 75 years old. SEE TECHNI QUE: Low dose, non-di agnost ic qualit y CT images were acquir ed from the skull base to the mid thighs for attenu ation correc tion and anatom ic locali zation . This was follow ed by positr on emissi on tomogr aphy (PET) imagin g in the same 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 Radiop harmac eutica l: 10.4 mCi of F-18 FDG. Recent blood sugar level: 93 mg/dl. Uptake time: 61 minute s. COMPAR DANIEL: None CORREL ATION: CT abdome n and pelvis Septem tricia 2024; nuclea r PAGE 3 Signed Report (JEFF NUED) [facility] Name: NIHARIKA NARVAEZ FA [address] Phys: Sandra [place] [address] : 1949 Age: 74 Sex: F Acct: [id number] Loc: G.PET PHONE #: Exam Date: 2024 Status : DEP CLI FAX #: Rad# [id number] Unit# [id number] Admit Date: 2024 Report Has Been Amende d EXAMS: CPT CODE: [id number] 457 PET W/CT SKULL- MID THIGH 29391 medici ne bone scan Septem 2024 FINDIN GS: Refere nce backgr ound hepati c uptake maximu m SUV: 2.9 Refere nce medias tinal blood pool maximu m SUV: 2.2 HEAD AND NECK: 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 Non-di agnost ic CT findin gs: None. CHEST: Hetero geneou sly intens e uptake to the parame diasti nal left upper lobe bronch us, maximu m SUV of 8.5. There are multip le discon tiguou s satell ite nodule s noted, likely additi onal sites of locore gional diseas e. Subple ural nodula r densit ies are seen to the left upper lobe, series 3 image 96, no percep tible FDG uptake at this time. Additi onal subcen timete r nodule is seen to the left lower lobe, axial image 108, too small for reliab le charac teriza tion by PET. Conflu ent right lower lobe subple ural opacit y seen on axial image 66, no focal FDG uptake at this time. Non-di agnost ic CT findin gs: Modera te emphys alphonso. Partia lly calcif ied medias tinal and right hilar lymph nodes. ABDOME N AND PELVIS : Wide range of physio logic bowel uptake , limits evalua tion. Preston-b ladder artifa ct, limits evalua tion of FDG uptake to adjace nt soft tissue s. Within this limita tion, FDG uptake to the uterus cannot be exclud ed, very poorly evalua arabella on curren t examin ation. Maximu m SUV of 11.3. Non-di agnost ic CT findin gs: Hyperd ense during sludge versus small stones . Nonobs tructi ng right- sided nephro lithia sis. Severe aortoi liac athero sclero sis with greate r than 70% lumina l narrow ing to the abdomi nal aorta, series 2 image 146. PAGE 4 Signed Report (JEFF NUED) [facility] Name: NIHARIKA NARVAEZ FAY [address] Phys: Sandra dickinson [place] [address] : 1949 Age: 74 Sex: F Acct: [id number] Loc: G.PET PHONE #: [phone] Exam Date: 2024 Status : DEP CLI FAX #: Rad# [id number] Unit# [id number] Admit Date: 2024 Report Has Been Amende d EXAMS: CPT CODE: [id number] PET W/CT SKULL- MID THIGH 10787 MUSCUL OSKELE FLOYD: 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 Non-di agnost ic CT findin gs: Bilate ral hip prosth eses. Diffus e bony demine raliza tion. IMPRES CHRIS: Intens e uptake to left upper lobe parame diasti nal mass with satell ite nodule s, correl ate with report ed known primar y. Multip le additi onal bilate ral pulmon joe nodule s are seen at or below size thresh old for reliab le charac teriza tion by PET. Recomm end attent ion on follow -up. Evalua tion of pelvic viscer a is limite d by streak artifa ct from bilate ral hip prosth eses as well as preston-b ladder artifa ct. Within these limita tions, there appear s to be FDG uptake to the uterus , recomm end correl ation with pelvic ultras ound and/or MRI female pelvis to exclud e endome trial or uterin e malign thompson. Electr onical ly signed by: Tomas pope MD 2024 12:17 PM EDT RP Workst ation: SEALWR [id number] Electr onical ly Signed by TOMAS POPE MD on 2024 at 1209 Report ed and signed by: TOMAS GRAMAJO MD CC: Peter Giordano M.D.; Lars dickinson MD Dictat ed Date/T nayeli: 2024 (1209) Techno logist : TIA CHOUDHURY, BS, [employer]ING [employer] INSTALLER Transc ribed Date/T nayeli: 2024 (1209) Transc riptio nist: DR.IND Dumont onic Signat ure Date/T nayeli: 2024 (1209) Printe d Date/T nayeli: 2024 (1506) BATCH NO: N/A PAGE 5 Signed Report CC'ed Logic: Orderi ng Provid er: SANDRA SOUSA Attend ing Provid er: SANDRA SOUSA Referr ing Provid er: SANDRA SOUSA Consul ting Provid er: MILLY Queen [address] , [place], [address], 07/31/2025 08:11:40 08/23/20 25 08/23/2025 XR, chest , 2 view [facility] Name: NIHARIKA NARVAEZ FAY [address] [place] [address] Phys: Sandra dickinson [place] [address] : 1949 Age: 75 Sex: F Acct: [id number] Loc: G.RAD PHONE #: [phone] Exam Date: 2024 Status : REG CLI FAX #: Rad# [id number] Unit# [id number] Admit Date: 2024 EXAMS: CPT CODE: [id number] CHEST 2 VIEWS 66891 CHEST RADIOG RAPHS, 2 VIEWS CLINIC AL HISTOR Y: Follow -up after comple ting radiat ion along. FINDIN GS: Fronta l and latera l views of the chest were obtain ed and review ed. No compar daniel images .. The lungs are well expand ed. No focal consol idatio n. No pneumo thorax or pleura l effusi on. The cardio medias tinal silhou ette is normal . No acute bony abnorm ality is seen. IMPRES CHRIS: No acute cardio pulmon joe proces s. Electr onical ly signed by: Jasmine Callejas ms, MD 2024 11:27 PM EDT RP Workst ation: [id number] Electr onical ly Signed by JASMINE CALLEJAS MS on 2024 at 2214 Report ed and signed by: ANGELIQUE STEWART, JASMINE Najera CC: Peter Giordano M.D.; Lars dickinson MD Dictat ed Date/T nayeli: 2024 (2213) Techno logist : CHIRAG Gonzales(R ) Transc ribed Date/T nayeli: 2024 (2213) Transc riptio nist: TIFFANY Electr onic Signat ure Date/T nayeli: 2024 (2213) Printe d Date/T nayeli: 2024 (233) BATCH NO: N/A PAGE 1 Signed Report CC'ed Logic: Orderi ng Provid er: SANDRA SOUSA Attend ing Provid er: SANDRA SOUSA Referr ing Provid er: SANDRA SOUSA Consul ting Provid er: MILLY pagan [address] [place], [address], 08/24/2025 09:07:54 Result Notes Documentation Provider Name and Address Organization Details Recorded Time Xr, Chest, 2 View : [facility] Ce Name: NIHARIKA NARVAEZ LARA [address] [place] [address] Phys: Tyson [place]H,[place] [address] : 1950 Age: 75 Sex: F Acct: [id number] Loc: CIRILO PHONE #: Exam Date: 08/23/2025 Status: REG CLI FAX #: Rad# [id number] Unit# [id number] Admit Date: 08/23/2025 EXAMS: CPT CODE: [id number] CHEST 2 VIEWS 90083 CHEST RADIOGRAPHS, 2 VIEWS CLINICAL HISTORY: Follow-up after completing radiation along. FINDINGS: Frontal and lateral views of the chest were obtained and reviewed. No comparison images.. The lungs are well expanded. No focal consolidation. No pneumothorax or pleural effusion. The cardiomediastinal silhouette is normal. No acute bony abnormality is seen. IMPRESSION: No acute cardiopulmonary process. Electronically signed by: Jaja Solis MD 08/23/2025 11:27 PM EDT RP at 2214 Reported and signed by: JAJA SOLIS CC: Tariq Corcoran M.D.; Lars Mehta MD Dictated Date/Time: 08/23/2025 (2213) Technologist: SARAH Gonzales(R) Transcribed Date/Time: 08/23/2025 (2213) Mold Yard Crane Operator: Electronic Signature Date/Time: 08/23/2025 (2213) Printed Date/Time: 08/23/2025 (669) BATCH NO: N/A PAGE 1 Signed Report CC'ed Logic: Ordering Provider: TYSON SOUSA Attending Provider: TYSON SOUSA Referring Provider: TYSON SOUSA Consulting Provider: JEWELL Mehta MD [address] [place] [address],[address], [place], [address] [place] [facility] [place] 08/24/2025 09:07:54 Problems Name Problem SNOMED Code Status Onset Date Resolution Date Notes Provider Name and Address Organization Details Recorded Time Small cell carcinoma of lung 605594036 Active 025 [facility] [place] [facility] [place] 5 08:29:03 Tobacco user 537924241 Active 025 [facility] [place] [facility] [place] 5 11:32:20 Problem Notes None recorded. Medical Equipment None Reported. Allergies Allergen ID Allergen Name Allergen Category Reaction Reaction Severity Criticality Documentation Date Start Date Code Code System Note Provider Name and Address Organization Details Recorded Time 698858 cefdinir medicatio n confusion mild high 07/23/2025 25744 RxNorm ZOHRA Mistry [facility] & [place] 5 09:11:23 378126 Boniva medicatio n other Not available high 07/23/2025 09894 4 RxNorm Cause s extre me fluct uatio n in BP ZOHRA Mistry [facility] & [place] 5 09:12:20 997260 Avelox medicatio n Not available Not available unabletoasse 07/23/2025 40812 6 RxNorm ZOHRA Mistry [facility] & [place] 5 09:12:59 Medications Name Sig Start Date Stop Date Status Note LastModified by Organization Details LastModified Time furosemide 40 mg tablet TAKE 1/2 (ONE-HALF ) TABLET BY MOUTH ONCE DAILY active Not Available Not Available No t Available atorvastati n 40 mg tablet TAKE 1 TABLET BY MOUTH ONCE DAILY AT BEDTIME active Not Available Not Available No t Available megestrol 400 mg/10 mL (40 mg/mL) oral suspension TAKE 20 ML BY MOUTH ONCE DAILY active Not Available Not Available No t Available nicotine 14 mg/24 hr daily transdermal patch Apply 1 patch every day by transderm al route for 30 days. 2024 active Not Available Not Available Not Avai lable ipratropium 0.5 mg-albutero l 3 mg (2.5 mg base)/3 mL nebulizatio n soln USE 3 ML IN NEBULIZER EVERY 8 HOURS active Not Available Not Available No t Available prednisone 20 mg tablet Take 1 tablet twice a day by oral route with meal(s) for 14 days. 09/03 completed Not Available Not Available Not Available alendronate 70 mg tablet TAKE 1 TABLET BY MOUTH ONCE A WEEK active Not Available Not Available No t Available metoprolol succinate ER 100 mg tablet,exte nded release 24 hr TAKE 1 TABLET BY MOUTH ONCE DAILY active Not Available Not Available No t Available metronidazo le 500 mg tablet TAKE ONE TABLET BY MOUTH FOUR TIMES DAILY FOR 10 DAYS -- FINISH ALL MEDICINE -- 07/23 completed Not Available Not Available Not Available clopidogrel 75 mg tablet TAKE 1 TABLET BY MOUTH ONCE DAILY active Not Available Not Available No t Available amlodipine 10 mg tablet TAKE 1 TABLET BY MOUTH ONCE DAILY active Not Available Not Available No t Available omeprazole 20 mg capsule,del ayed release TAKE ONE CAPSULE BY MOUTH TWICE DAILY FOR 10 DAYS active Not Available Not Available No t Available aspirin 81 mg tablet Take 1 tablet every day by oral route. active Not Available Not Available No t Available benazepril 40 mg tablet TAKE 1 TABLET BY MOUTH ONCE DAILY active Not Available Not Available No t Available albuterol sulfate HFA 90 mcg/actuati on aerosol inhaler INHALE 2 PUFFS BY MOUTH EVERY 6 HOURS NEEDED active Not Available Not Available No t Available fluticasone propionate 50 mcg/actuati on nasal spray,suspe nsion USE 2 SPRAY(S) IN EACH NOSTRIL ONCE DAILY active Not Available Not Available No t Available duloxetine 60 mg capsule,del ayed release TAKE 1 CAPSULE BY MOUTH ONCE DAILY active Not Available Not Available No t Available calcium carbonate-v itamin D3 600 mg-125 unit tablet Take 1 tablet every day by oral route. active Not Available Not Available No t Available FeroSul 325 mg (65 mg iron) tablet TAKE 1 TABLET BY MOUTH ONCE DAILY active Not Available Not Available No t Available Vitals Date Recorded Body height Body temperature Oxygen saturation Oxygen saturation in Arterial blood by Pulse oximetry Inhaled oxygen flow rate Heart rate Respiratory rate Systolic And Diastolic Provider Name and Address Organization Details Last Updated DateTime 5 157.48 cm 97.7 [degF] 93 % 93 % 2 L/min 73 /min 22 /min 171/70 mm[Hg] Mia العلي [facility] 5 11:32:37 Date Recorded Body height Body temperature Oxygen saturation Oxygen saturation in Arterial blood by Pulse oximetry Inhaled oxygen flow rate Heart rate Respiratory rate Systolic And Diastolic Provider Name and Address Organization Details Last Updated DateTime 5 157.48 cm 98.2 [degF] 90 % 90 % 2 L/min 74 /min 22 /min 184/77 mm[Hg] Mia Dumont [facility] & [place] 5 14:13:26 Social History Question Answer Notes LastModified by Organizat ion Details LastModified Time Tobacco Smoking Status Current Every Day Smoker Mia David Dumont [facility], [place] - [facility] - [place] & [place] 07/23/2025 11:30:06 What Was The Date Of Your Most Recent Tobacco Screening? 07/23/2025 Information not available 07/23/2025 What Is Your Current Pack Years? 30ormorepac zohraears Information not available 07/23/2025 At What Age Did You Start Smoking Tobacco? 18 Information not available 07/23/2025 How Much Tobacco Do You Smoke? 1 PPW Hx Of 1 Pk/day Information not available 07/23/2025 Has Tobacco Cessation Counseling Been Provided? Yes Smoking Cessation Brochures From [facility] Provided Information not available 07/23/2025 On What Date Was Tobacco Cessation Counseling Provided? 07/23/2025 Information not available 07/23/2025 How Many Years Have You Smoked Tobacco? 57 Information not available 07/23/2025 Sex: Unknown Functional Status Question Answer Note LastModified by Organizat ion Details LastModified Time Do you use any illicit or recreational drugs? No Information not available 07/23/2025 Do you or have you ever used any other forms of tobacco or nicotine? No Information not available 07/23/2025 What is your level of alcohol consumption? None Information not available 07/23/2025 Mental Status None recorded. Family History Relationship Description Onset Age of this Age Resolved Age Notes LastModified by Organization Details LastModified Time Brother Myocardial infarction nparkerrose Not available 09:27:32 Brother Diabetes mellitus nparkerrose Not available 07/09 09:28:00 Mother Myocardial infarction nparkerrose Not available 09:27:42 Medical History No medical history recorded. Gynecological HistoryNo gynecological history recorded. Obstetrics History GPAL:G 0 P 0 0 0 0 Past Encounters Encounter ID Performer Location Encounter Start Date Encounter Closed Date Diagnosis/Indication Diagnosis SNOMED-CT Code Diagnosis ICD10 Code Diagnosis IMO Codes Diagnosis Note [id number] MD HANNA Lozano [place] [address] 8 07/23/2025 10:12:44 07/23/2025 11:53:43 Small cell carcinoma of lung 433795468 C34.12 4480152811 Tobacco user 221540542 Z 72.0 [id number] Lars Mehta MD [place] [address] 8 07/26/2025 09:56:22 07/26/2025 11:19:24 Small cell carcinoma of lung 671801400 C34.12 [id number] Lars Mehta MD [place] [address] 8 08/06/2025 12:45:36 08/06/2025 14:33:26 Small cell carcinoma of lung 541842497 C34.12 [id number] Lars Mehta MD [place] [address] 8 08/07/2025 12:49:55 08/07/2025 13:36:59 Small cell carcinoma of lung 693800299 C34.12 [id number] Lars Mehta MD [place] [address] 8 08/08/2025 12:53:10 08/08/2025 16:24:49 Small cell carcinoma of lung 757944163 C34.12 [id number] Lars Mehta MD [place] [address] 8 08/09/2025 12:46:59 08/09/2025 15:49:21 Small cell carcinoma of lung 195716853 C34.12 [id number] Lras Mehta MD [place] [address] 8 08/13/2025 11:29:50 08/13/2025 12:13:47 Small cell carcinoma of lung 542689027 C34.12 [id number] Lars Mehta MD [facility] [address] [place] [address] 08/27/2025 14:12:24 08/27/2025 14:35:06 Small cell carcinoma of lung 761937628 C34.12 [id number] Health Concerns Section Related Observation LastModified by Organization Detai ls LastModified Time None Recorded Concern Status LastModified by Organization Details LastModified Time None Recorded Advance Directives Directive None Recorded Payers Insurance Date Sequence Insurance Name Policy Number Policy Baxter Covered Member ID Baxter Member ID Guarantor Name 08/09/2025 1 [place] Niharika Farias Fabiángaurav [id number] Niharika Saldivar Celio 08/24/2025 2 [facility] Niharika Farias Fabiángaurav [id number] Niharika Saldivar Celio Notes Date Note Type Note Provider Name and Address Organization Details Recorded Time 08/13/2025 text/html Patient completed her radiation today and was well tolerated she remain frail with poor performance.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 Rojas tomorrow. Had mild dry cough. Lars Mehta MD [address] [place] [address],[address], [place], [address], [facility] - [facility] - [place] & [place] 08/27/2025 14:23:42 OBGyn Episode No OBEpisode recorded.
--- OUTSIDE RECORDS SUMMARY | 2025-09-14 21:11 | XMS_ITS | Clinical Summary ---
Author Organization [facility] , [facility] Address [address] [place] [address] Phone Care Team Providers Care Baker Doughnut Name Role Phone Rosemarie SINGH, Ezequiel Dubois Unavailable U jose alejandro CORCORAN MD, MAGO Unavailable [phone] Reason for Visit and Chief Complaint [Patient Encounter] Problems Includes: Problems addressed during this encounter and other active Problems All Visits Onset Date Resolved Date Provider Condition S tatus Joint Pain Hip Right 08/02/2025 Young Rajan Active Last Documented On 5 1:44PM ; [facility], [facility] Joint Pain Hip Bilateral 03/17/2018 Ezequiel Houston MD Active Last Documented On 8 3:22PM ; [facility], [facility] Plan of Treatment No Plan of Treatment Recorded Assessments Includes: Assessments from this encounter No Assessments Recorded Medical Equipment - Implanted Devices Includes: Current Devices No Medical Equipment Recorded Medications Includes: Medications discussed during this encounter and other current Medications Current Medications (continue as prescribed) Aspirin 81 81 MG Oral Tablet Chewable 05/02/2024 Provider: Ezequiel ruby MD Diagnosis: once a day Last Documented On 4 8:31AM By Hung Houston ; [facility], [facility] traMADol HCl 50 MG Oral Tablet 05/01/2024 Provider: Ezequiel Houston MD Diagnosis: 1-2 po q 4-6h Last Documented On 4 2:09PM By Hung Houston ; [facility], [facility] oxyCODONE HCl 5 MG Oral Tablet 05/01/2024 Provider: Ezequiel Houston MD Diagnosis: 1-2 po q 4-6h Last Documented On 4 2:09PM By uHng Houston ; [facility], [facility] Tranexamic Acid 650 MG Oral Tablet 05/01/2024 Provid er: Ezequiel Houston MD Diagnosis: as directed TAKE 3 TABLETS O NE TIME A DAY BEGINNING THE EVENING OF SURGERY FOR FOUR DAYS Last Documented On 4 2:09PM By Hung Houston ; [facility], [facility] Ondansetron HCl 4 MG Oral Tablet 05/01/2024 Provider : Ezequiel Houston MD Diagnosis: [id number] Last Documented On 4 2:09PM By Hung Houston ; [facility], [facility] Meloxicam 15 MG Oral Tablet 05/01/2024 Provider: Ezequiel Houston MD Diagnosis: once a day Last Documented On 4 2:09PM By Hung Houston ; [facility], [facility] Colace 100 MG Oral Capsule 05/01/2024 Provider: Danna Houston MD Diagnosis: 1-2 tabs daily Last Documented On 4 2:09PM By Hung Houston ; [facility], [facility] Cefadroxil 500 MG Oral Capsule 05/01/2024 Provider: Ezequiel Houston MD Diagnosis: twice a day Last Documented On 4 2:09PM By Hung Houston ; [facility], [facility] Acetaminophen 500 MG Oral Tablet 05/01/2024 Provider : Ezequiel Houston MD Diagnosis: 2 three times a day Last Documented On 4 2:09PM By Hung Houston ; [facility], [facility] Albuterol Sulfate HFA 108 (9 0 Base) MCG/ACT Inhalation Aerosol Solution 03/14/2024 Provider: Diagnosis: Last Documented On 4 7:33AM By Abdirasihd Mayfield ; [facility], [facility] DULoxetine HCl 30 MG Oral Capsule Delayed Release Spri nkle 03/14/2024 Provider: Diagnosis: Last Documented On 4 7:34AM By Abdirashid Mayfield ; [facility], [facility] Metoprolol Succinate ER 100 MG Oral Tablet Extended Release 24 Hour 03/14/2024 Provider: Diagnosis: Last Documented On 4 7:35AM By Abdirashid Mayfield ; [facility] Benazepril HCl 40 MG Oral Tablet 03/03/2024 Provider : MAGO CORCORAN MD Diagnosis: Last Documented On 4 9:22AM By Paula Lewis ; [facility] Fluticasone Propionate 50 MC G/ACT Nasal Suspension 03/02/2024 Provider: MAGO CORCORAN MD Diagnosis: Last Documented On 4 9:22AM By Paula Lewis ; [facility] Atorvastatin Calcium 40 MG Oral Tablet 03/02/2024 Pr ovider: MAGO CORCORAN MD Diagnosis: Last Documented On 4 9:22AM By Paula Lewis ; [facility], [facility] amLODIPine Besylate 10 MG Oral Tablet 03/02/2024 Pro vider: MAGO CORCORAN MD Diagnosis: Last Documented On 4 9:22AM By Paula Lewis ; [facility], [facility] Alendronate Sodium 70 MG Oral Tablet 03/02/2024 Prov ider: MAGO CORCORAN MD Diagnosis: Last Documented On 4 9:22AM By Paula Lewis ; [facility] Furosemide 40 MG Oral Tablet 03/02/2024 Provider: MAGO CORCORAN MD Diagnosis: Last Documented On 4 9:22AM By Paula Lewis ; [facility], [facility] Clopidogrel Bisulfate 75 MG Oral Tablet 03/02/2024 P rovider: MAGO CORCORAN MD Diagnosis: Last Documented On 4 9:22AM By Paula Lewis ; [facility], [facility] Medications Administered Includes: Administered Medications from this encounter No Administered Medications Recorded Results Includes: Results discussed during this encounter No Results Recorded For Specified Dates History of Present Illness Includes: History of Present Illness from this encounter No History of Present Illness Recorded Social History No Social History Recorded - Smoking Status Unknown Medical History Includes: Medical History addressed during this encounter No Medical History Recorded Family History Includes: Family History addressed during this encounter No Family History Recorded Review of Systems Includes: Review of Systems from this encounter No Review of Systems Recorded Mental Status Includes: Mental Status from this encounter No Mental Status Recorded Functional Status Includes: Functional Status from this encounter No Functional Status Recorded Physical Exam Includes: Physical Exam from this encounter No Physical Exam Recorded Allergies Includes: Active Allergies Substance Type Reaction Onset Date Resolved Date Statu s Ibuprofen Allergy 03/17/2018 Active Last Documented On 5 1:44PM ; [facility], [facility] Encounters Encounter Provider Location Date Check-In Time Check-Out Time Diagnosis [Patient Encounter] Ezequiel Houston MD [facility] 4 9:27AM 11:59PM Insurance Includes: Active Insurance Policies Plan Name Member ID Group # Subscriber Relationship Effect kar Dates 1 - Medicare Part B [facility] [id number] Antonia Pickens Self 2 - [facility] [id number] Antonia Pickens Self 11/08/2017 - Unknown Clinical Notes Includes: Clinical Notes from this encounter No Clinical Notes Recorded
--- OUTSIDE RECORDS SUMMARY | 2025-09-14 21:11 | XMS_ITS | Continuity of Care Document ---
Author Organization [place] - [facility]NT [facility] Address [address] [place] [address] Care Team Providers Care Senior Clinical Project Manager Name Role Phone MAXIMILIANO CORCORAN Primary Care Provider JARED ROJAS Referring Provider [phone] LARS MEHTA Radiation Oncologist Assessment Encounter Date Assessment Date Assessment LastModified by Organization Details LastModified Time 08/27/2025 08/27/2025 Patient continued to do well [...] Details Appointments OV EST 15 2025 02:00P Kenny Mehta MD Not available Not available Not available Lab creatinin e w/ estimated GFR (eGFR), serum or plasma 2024 025 [facility] (Registration ), [address] , [place], [address], 09/03/2025 04:15:04 Referral None recorded. Procedures None recorded. Surgeries None recorded. Imaging CT, chest + abdomen, w/ contrast - To be done in 3 mo (second week of November 2025) 2024 025 JOHNNY Mann (Centralized Scheduling), [address] [place], [address], 09/03/2025 04:15:04 Medication Orders None recorded. Patient TargetsNo targets recorded. Patient InstructionsNo instructions recorded. Reason for Referral None Reported. Results Created Date Observation Date Name Description Value Unit Range Abnormal Flag Note LastModifiedBy Organization Detail LastModifiedTime 07/30/2007/30/2025 PET-C T, skull base to mid-t high scan [facility] Name: NIHARIKA NARVAEZ FAY [address] Phys: Sandra dickinson MD,[facility] [place] [address] : 1949 Age: 74 Sex: F Acct: [id number] Loc: G.PET PHONE #: [phone] Exam Date: 2024 Status : DEP CLI FAX #: Rad# [id number] Unit# [id number] Admit Date: 2024 EXAMS: CPT CODE: [id number] PET W/CT SKULL- MID THIGH 68999 EXAMIN ATION: SKULL BASE TO MID THIGH [...] lymph nodes. PAGE 1 Signed Report (JEFF NUROLDAN) [facility] Name: NIHARIKA NARVAEZ FAY [address] (app) Phys: Sandra dickinson MD,[facility] [address] : 1949 Age: 74 Sex: F Acct: [id number] Loc: G.PET PHONE #: [phone] Exam Date: 2024 Status : DEP CLI FAX #: Rad# [id number] Unit# [id number] Admit Date: 2024 EXAMS: CPT CODE: [id number] PET W/CT SKULL- MID THIGH 06473 ABDOME N AND PELVIS : Wide range [...] GRAMAJO MD PAGE 2 Signed Report (JEFF NUED) [facility] Name: NIHARIKA NARVAEZ FAY [address] (app) Phys: Sandra dickinson MD,Wag [facility] [place] [address] : 1949 Age: 74 Sex: F Acct: [id number] Loc: Dhaval.PET PHONE #: Exam Date: 2024 Status : DEP CLI FAX #: Rad# [id number] Unit# [id number] Admit Date: 2024 EXAMS: CPT CODE: [id number] PET W/CT SKULL- MID THIGH 59179 CC: Peter Giordano M.D.; Lars dickinson MD Dictat ed Date/T nayeli: 2024 (1209) Techno logist : TIA CHOUDHURY, TIFFANY, LIFE CLAIMS EXAMINER Transc ribed Date/T nayeli: 2024 (1209) Transc riptio nist: DR.IND Dumont onic Signat ure Date/T nayeli: 2024 (1209) Printe d Date/T nayeli: 2024 (1221) BATCH NO: N/A PAGE 3 Signed Report CC'ed Logic: Orderi ng Provid er: SANDRA SOUSA Attend ing Provid er: SANDRA SOUSA Referr ing Provid er: SANDRA SOUSA Consul ting Provid er: MILLY Queen [facility] [address] , [place], [address], 07/30/2025 13:12:15 07/30/20 25 07/30/2025 PET-C T, skull base to mid-t high scan [facility] Name: NIHARIKA NARVAEZ [address] [place] [address] Phys: Sandra dickinson MD,[facility] [address] : 1949 Age: 74 Sex: F Acct: [id number] Loc: G.PET PHONE #: Exam Date: 2024 Status : DEP CLI FAX #: [phone] Rad# [id number] Unit# [id number] Admit Date: 2024 Report Has Been Amende d EXAMS: CPT CODE: [id number] 457 PET W/CT SKULL- MID THIGH 28589 Addend um - 2024 SIGNED 2024 ADDEND UM: [id number] 457 PET/WC TSKMT ADDEND UM #1 Greate [...] and pelvis Septem tricia 2024; nuclea r medici ne bone scan Septem 2024 FINDIN GS: Refere nce backgr ound hepati c uptake maximu m SUV: 2.9 Refere nce medias tinal blood pool maximu m SUV: 2.2 HEAD AND NECK: PAGE 1 Signed Report (JEFF NUED) [facility] Name: NIHARIKA NARVAEZ FAY [address] Phys: Sandra dickinson MD,[place] [address] : 1949 Age: 74 Sex: F Acct: [id number] Loc: G.PET PHONE #: Exam Date: 2024 Status : DEP CLI FAX #: Rad# [id number] Unit# [id number] Admit Date: 2024 Report Has Been Amende d EXAMS: CPT CODE: [id number] 457 PET W/CT SKULL- MID THIGH 81936 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 [...] IMPRES CHRIS: PAGE 2 Signed Report (JEFF NUED) [facility] Name: NIHARIKA NARVAEZ FAY [address] Phys: Sandra dickinson MD,Emanuelg M. ZOHRA [place] [address] : 1949 Age: 74 Sex: F Acct: [id number] Loc: Dhaval.PET PHONE #: Exam Date: 2024 Status : MELODY CLI FAX #: [phone] Rad# [id number] Unit# [id number] Admit Date: 2024 Report Has Been Amende d EXAMS: CPT CODE: [id number] 457 PET W/CT SKULL- MID THIGH 02249 Intens e uptake to left upper lobe [...] n and pelvis Septem 2024; nuclea r PAGE 3 Signed Report (JEFF NUED) [facility] Name: NIHARIKA NARVAEZ FAY [address] (app) Phys: Sandra dick[place] [address] : 1949 Age: 74 Sex: F Acct: [id number] Loc: G.PET PHONE #: [phone] Exam Date: 2024 Status : DEP CLI FAX #: [phone] Rad# [id number] Unit# [id number] Admit Date: 2024 Report Has Been Amende d EXAMS: CPT CODE: [id number] 457 PET W/CT SKULL- MID THIGH 21359 medici ne bone scan Septem 2024 FINDIN [...] 2 image 146. PAGE 4 Signed Report (JEFFAnne MUSTAFA) [facility] Name: NIHARIKA NARVAEZ FAY [address] (app) Phys: Sandra dickinson MD,[facility] [address] : 1949 Age: 74 Sex: F Acct: [id number] Loc: G.PET PHONE #: Exam Date: 2024 Status : DEP CLI FAX #: [phone] Rad# [id number] Unit# [id number] Admit Date: 2024 Report Has Been Amende d EXAMS: CPT CODE: [id number] 457 PET W/CT SKULL- MID THIGH 36477 MUSCUL OSKELE FLOYD: Physio logic radiot racer [...] GRAMAJO MD CC: Peter Giordano M.D.; Lars dickisnon MD Dictat ed Date/T nayeli: 2024 (1209) Techno logist : TIFFANY SHARP, LIFE CLAIMS EXAMINER Transc ribed Date/T nayeli: 2024 (1209) Transc riptio nist: DR.IND DEL VALLE Electr onic Signat ure Date/T nayeli: 2024 (1209) Printe d Date/T nayeli: 2024 (1506) BATCH NO: N/A PAGE 5 Signed Report CC'ed Logic: Orderi ng Provid er: SANDRA SOUSA Attend ing Provid er: SANDRA SOUSA Referr ing Provid er: SANDRA SOUSA Consul ting Provid er: MILLY [facility] [address] , [place], [address], 07/31/2025 08:11:40 08/23/20 25 08/23/2025 XR, chest , 2 view [facility] Name: NIHARIKA NARVAEZ [facility] [employer]app) Phys: Sandra dickinson [place] [address] : 1949 Age: 75 Sex: F Acct: [id number] Loc: GCyrusRAD PHONE #: Exam Date: 2024 Status : REG CLI FAX #: [phone] Rad# [id number] Unit# [id number] Admit Date: 2024 EXAMS: CPT CODE: [id number] [id number] CHEST 2 VIEWS 40254 CHEST RADIOG RAPHS, 2 VIEWS CLINIC AL [...] Gonzales(R ) Transc ribed Date/T nayeli: 2024 (2214) Transc riptio nist: DR.WIL ALLEN Electr onic Signat ure Date/T nayeli: 2024 (2214) Printe d Date/T nayeli: 2024 (2331) BATCH NO: N/A PAGE 1 Signed Report CC'ed Logic: Orderi ng Provid er: SANDRA SOUSA Attend ing Provid er: SANDRA SOUSA Referr ing Provid er: SANDRA SOUSA Consul ting Provid er: MILLY Queen [address] , [place], [address], 08/24/2025 09:07:54 Result Notes None recorded. Problems Name Problem SNOMED Code Status Onset Date Resolution Date Notes Provider Name and Address Organization Details Recorded Time Small cell carcinoma of lung 647407389 Active 025 ZOHRA Mistry [facility] & [place] 5 08:29:03 Tobacco user 858812959 Active 025 ZOHRA Mistry [facility] & [place] 5 11:32:20 Problem Notes None recorded. Medical Equipment None Reported. Allergies Allergen ID Allergen Name Allergen Category Reaction Reaction Severity Criticality Documentation Date Start Date Code Code System Note Provider Name and Address Organization Details Recorded Time 693206 cefdinir medicatio n confusion mild [facility] 07/23/2025 30816 RxNorm Mia sifuentes [facility] & [place] 5 09:11:23 753758 Boniva medicatio n other Not available [facility] 07/23/2025 30596 4 RxNorm Cause s extre me fluct uatio n in BP ZOHRA Mistry [facility] & [place] 5 09:12:20 310756 Avelox medicatio n Not available Not available unabletoasse 07/23/2025 69791 6 RxNorm ZOHRA Mistry [facility] & [place] 5 09:12:59 Medications Name Sig Start Date [...] 74 /min 22 /min 184/77 mm[Hg] Mia العلي KRISTIN [facility] & [place] 14:13:26 Social History Question Answer Notes LastModified by Organizat ion Details LastModified Time Tobacco Smoking Status Current Every Day Smoker Mia Dumont null, [facility] [place] 07/23/2025 11:30:06 What Was The Date Of Your Most Recent Tobacco Screening? 07/23/2025 Information not available 07/23/2025 What Is Your Current Pack Years? 30ormorepac kyears Information not available 07/23/2025 At What Age Did You Start Smoking Tobacco? 18 Information not available 07/23/2025 How Much Tobacco Do You Smoke? 1 PPW Hx Of 1 Pk/day Information not available 07/23/2025 Has Tobacco Cessation Counseling Been Provided? Yes Smoking Cessation Brochures From [facility] Dept Provided Information not available 07/23/2025 On [...] ICD10 Code Diagnosis IMO Codes Diagnosis Note [id number] Lars Mehta MD [place] [address] 8 08/06/2025 12:45:36 08/06/2025 14:33:26 Small cell carcinoma of lung 750132646 C34.12 2089958858 [id number] Lars Mehta MD [place] [address] 8 08/07/2025 12:49:55 08/07/2025 13:36:59 Small cell carcinoma of lung 985005617 C34.12 4778347187 [id number] Lars Mehta MD [place] [address] 8 08/08/2025 12:53:10 08/08/2025 16:24:49 Small cell carcinoma of lung 999222413 C34.12 9138861092 [id number] Lars Mehta MD [place] [address] 8 08/09/2025 12:46:59 08/09/2025 15:49:21 Small cell carcinoma of lung 369486504 C34.12 6208067754 [id number] Lars Mehta MD [place] [address] 8 08/13/2025 11:29:50 08/13/2025 12:13:47 Small cell carcinoma of lung 936248957 C34.12 9524264023 [id number] Lars Mehta MD [place] [address] 8 08/27/2025 14:12:24 08/27/2025 14:35:06 Small cell carcinoma of lung 070435481 C34.12 2441725424 Health Concerns Section Related Observation LastModified by Organization Detai ls LastModified Time None Recorded Concern Status LastModified by Organization Details LastModified Time None Recorded Payers Encounter Date Sequence Insurance Name Policy Number Policy Baxter Covered Member ID Baxter Member ID Guarantor Name 08/27/2025 1 [place] Niharika Narvaez [id number] 5 Niharika Narvaez 08/27/2025 2 KARLIE Narvaez [id number] Niharika Narvaez Notes Date Note Type Note Provider Name and Address Organization Details Recorded Time 08/27/2025 text/html Patient is here for a [...] Had mild dry cough. Lars Mehta MD [address], [place], [address], [facility] & [place] 08/27/2025 14:23:42 OBGyn Episode No OBEpisode recorded.
--- OUTSIDE RECORDS SUMMARY | 2025-09-14 21:11 | XMS_ITS ---
Care Plan - [facility], [facility] Created on: September 14, 2025 Antonia Pickens : 1950 Sex: Female Author Organization [facility] Address [address] [address] Phone Care Team Providers Care Heel Lift Gouger Name Role Phone Rosemarie SINGH, Ezequiel Dubois Unavailable [phone] JEWELL SINGH, MAGO Unavailable [phone]
--- OUTSIDE RECORDS SUMMARY | 2025-09-14 21:11 | XMS_ITS | Continuity of Care Document ---
Author Organization [place] - [facility] Address [address] [place] [address] Care Team Providers Care Rent And Miscellaneous Remittance Clerk Name Role Phone MAXIMILIANO CORCORAN Primary Care Provider [phone] JARED PATTERSON Referring Provider [phone] LARS MEHTA Radiation Oncologist [phone] Assessment Encounter Date Assessment Date Assessment LastModified by Organization Details LastModified Time 07/26/2025 07/26/2025 Simulation note: She was simulated in the supine position with her arm above her head in SBRT VAC lock had 4D simulation for treatment planning of left upper lung mass with SBRT technique. [email or web address] Not available 07/26/2025 10:18:19 Plan of Treatment Reminders Order Date Submit Date Provider Last Modified By Organization Details Last Modified Time Details Appointments OV EST 15 026 02:00PM Lars Mehta MD Not available Not available [...] T, skull base to mid-t high scan [facility] Name: NIHARIKA NARVAEZ [address] [facility] Phys: Sandra dickinson MD,[facility] [place] [address] : 1949 Age: 74 Sex: F Acct: [id number] Loc: G.PET PHONE #: [phone] Exam Date: 2024 Status : DEP CLI FAX #: [phone] Rad# [id number] Unit# [id number] Admit Date: 2024 EXAMS: CPT CODE: [id number] 457 PET W/CT SKULL- MID THIGH 75145 EXAMIN ATION: SKULL BASE TO MID THIGH [...] nodes. PAGE 1 Signed Report (JEFF NUROLDAN) [facility] Name: NIHARIKA NARVAEZ FAY [address] [employer] Phys: Sandra dickinson MD,[place] [address] : 1949 Age: 74 Sex: F Acct: [id number] Loc: G.PET PHONE #: Exam Date: 2024 Status : DEP CLI FAX #: Rad# [id number] Unit# [id number] Admit Date: 2024 EXAMS: CPT CODE: [id number] 457 PET W/CT SKULL- MID THIGH 88837 ABDOME N AND PELVIS : Wide range [...] GRAMAJO MD PAGE 2 Signed Report (JEFF MUSTAFA) [facility] Name: NIHARIKA NARVAEZ FAY [address] Phys: Sandra dickinson MD,[facility] [place] [address] : 1949 Age: 74 Sex: F Acct: [id number] Loc: G.PET PHONE #: [phone] Exam Date: 2024 Status : DEP CLI FAX #: [phone] Rad# [id number] Unit# [id number] Admit Date: 2024 EXAMS: CPT CODE: [id number] 457 PET W/CT SKULL- MID THIGH 94131 CC: Peter Giordano M.D.; Lars dickinson MD Dictat ed Date/T nayeli: 2024 (1209) Techno logist : TIA CHOUDHURY, TIFFANY, OUTDOOR STUDIES PROFESSOR Transc ribed Date/T nayeli: 2024 (1209) Transc riptio nist: DR.IND Dumont onic Signat ure Date/T nayeli: 2024 (1209) Printe d Date/T nayeli: 2024 (1221) BATCH NO: N/A PAGE 3 Signed Report CC'ed Logic: Orderi ng Provid er: SANDRA SOUSA Attend ing Provid er: SANDRA SOUSA Referr ing Provid er: SANDRA SOUSA Consul ting Provid er: MILLY pagan [address] [place], [address], 07/30/2025 13:12:15 07/30/20 25 07/30/2025 PET-C T, skull base to mid-t high scan [facility] Name: NIHARIKA NARVAEZ FAY [facility] [employer] Phys: Sandra dickinson MD,Carrie [place] [address] : 1949 Age: 74 Sex: F Acct: [id number] Loc: G.PET PHONE #: Exam Date: 2024 Status : DEP CLI FAX #: [phone] Rad# [id number] Unit# [id number] Admit Date: 2024 Report Has Been Amende d EXAMS: CPT CODE: [id number] 457 PET W/CT SKULL- MID THIGH 32582 Addend um - 2024 SIGNED 2024 ADDEND UM: [id number] 457 PET/WC TSKMT ADDEND UM #1 Greate [...] AND NECK: PAGE 1 Signed Report (JEFF NUROLDAN) [facility] Name: NIHARIKA NARVAEZ FAY [address] Phys: Sandra dickinson MD,[place] [place] [address] : 1949 Age: 74 Sex: F Acct: [id number] Loc: G.PET PHONE #: Exam Date: 2024 Status : DEP CLI FAX #: Rad# [id number] Unit# [id number] Admit Date: 2024 Report Has Been Amende d EXAMS: CPT CODE: [id number] 457 PET W/CT SKULL- MID THIGH 64783 Physio logic radiot racer [facility]ri [facility] Non-di agnost ic CT findin gs: [...] CHRIS: PAGE 2 Signed Report (JEFF NUED) [facility] Name: NIHARIKA NARVAEZ FAY [address] [employer] Phys: Sandra dickinson MD,[facility] [place] [address] : 1949 Age: 74 Sex: F Acct: [id number] Loc: G.PET PHONE #: Exam Date: 2024 Status : DEP CLI FAX #: Rad# [id number] Unit# [id number] Admit Date: 2024 Report Has Been Amende d EXAMS: CPT CODE: [id number] 457 PET W/CT SKULL- MID THIGH 11898 Intens e uptake to left upper lobe [...] r PAGE 3 Signed Report (JEFF NUED) [facility] Name: NIHARIKA NARVAEZ FAY [address] Phys: Sandra [place] [address] : 1949 Age: 74 Sex: F Acct: [id number] Loc: G.PET PHONE #: Exam Date: 2024 Status : DEP CLI FAX #: Rad# [id number] Unit# [id number] Admit Date: 2024 Report Has Been Amende d EXAMS: CPT CODE: [id number] 457 PET W/CT SKULL- MID THIGH 49408 medici ne bone scan Septem 2024 FINDIN [...] 146. PAGE 4 Signed Report (JEFF NUED) [facility] Name: NIHARIKA NARVAEZ FAY [address] [employer] Phys: Sandra dickinson [place] [address] : 1949 Age: 74 Sex: F Acct: [id number] Loc: G.PET PHONE #: Exam Date: 2024 Status : DEP CLI FAX #: Rad# [id number] Unit# [id number] Admit Date: 2024 Report Has Been Amende d EXAMS: CPT CODE: [id number] 457 PET W/CT SKULL- MID THIGH 37932 MUSCUL OSKELE FLOYD: Physio logic radiot racer [...] (1209) Techno logist : TIA CHOUDHURY, TIFFANY, OUTDOOR STUDIES PROFESSOR Transc ribed Date/T nayeli: 2024 (1209) Transc riptio nist: DR.IND Dumont onic Signat ure Date/T nayeli: 2024 (1209) Printe d Date/T nayeli: 2024 (1506) BATCH NO: N/A PAGE 5 Signed Report CC'ed Logic: Orderi ng Provid er: SANDRA SOUSA Attend ing Provid er: SANDRA SOUSA Referr ing Provid er: SANDRA SOUSA Consul ting Provid er: MILLY Queen [address] , [place], [address], 07/31/2025 08:11:40 08/23/20 25 08/23/2025 XR, chest , 2 view [facility] Name: NIHARIKA NARVAEZ [address] Phys: Sandra dickinson MD,[facility] [place] [address] : 1949 Age: 75 Sex: F Acct: [id number] Loc: XiomaraRAD PHONE #: Exam Date: 2024 Status : REG CLI FAX #: Rad# [id number] Unit# [id number] Admit Date: 2024 EXAMS: CPT CODE: [id number] 698 CHEST 2 VIEWS 40116 CHEST RADIOG RAPHS, 2 VIEWS CLINIC AL [...] Report CC'ed Logic: Orderi ng Provid er: SADNRA SOUSA Attend ing Provid er: SANDRA SOUSA Referr ing Provid er: SANDRA SOUSA Consul ting Provid er: MILLY Queen [address] , [place], [address], 08/24/2025 09:07:54 Result Notes None recorded. Problems Name Problem SNOMED Code Status Onset Date Resolution Date Notes Provider Name and Address Organization Details Recorded Time Small cell carcinoma of lung 830385662 Active 025 ZOHRA Mistry - [place] & [place] 5 08:29:03 Tobacco user 800289836 Active 025 ZOHRA Mistry - [place] & [place] 5 11:32:20 Problem Notes None recorded. Medical Equipment None Reported. Allergies Allergen ID Allergen Name Allergen Category Reaction Reaction Severity Criticality Documentation Date Start Date Code Code System Note Provider Name and Address Organization Details Recorded Time 728379 cefdinir medicatio n confusion mild high 07/23/2025 72781 RxNorm Mia sifuentes, ZOHRA [facility] & [place] 5 09:11:23 416766 Boniva medicatio n other Not available [facility] 07/23/2025 96123 4 RxNorm Cause s extre me fluct uatio n in BP Mia sifuentes, ZOHRA [facility] & [place] 5 09:12:20 833550 Avelox medicatio n Not available Not available unabletoasse 07/23/2025 05309 6 RxNorm Mia sifuentes, ZOHRA Shearer [facility] & [place] 5 09:12:59 Medications Name Sig Start Date [...] Available Not Available No t Available Vitals None Recorded Social History Question Answer Notes LastModified by Organizat ion Details LastModified Time Tobacco Smoking Status Current Every Day Smoker Mia Dumont [facility], [facility] - [place] & [place] 07/23/2025 11:30:06 What Was The Date Of Your Most Recent Tobacco Screening? 07/23/2025 Information not available 07/23/2025 What Is Your Current Pack Years? 30ormorepac ivonne Information not available 07/23/2025 At What Age Did You Start Smoking Tobacco? 18 Information not available 07/23/2025 How Much Tobacco Do You Smoke? 1 PPW Hx Of 1 Pk/day Information not available 07/23/2025 Has Tobacco Cessation Counseling Been Provided? Yes Smoking Cessation Brochures From [facility] & [facility] Dept Provided Information not available 07/23/2025 On [...] ICD10 Code Diagnosis IMO Codes Diagnosis Note [id number] Lars Mehta MD [address] [address] 07/23/2025 10:12:44 07/23/2025 11:53:43 Small cell carcinoma of lung 473976213 C34.12 6620249826 Tobacco user 271799636 Z 72.0 3703613 [id number] Lars Mehta MD [address] [address] 07/26/2025 09:56:22 07/26/2025 11:19:24 Small cell carcinoma of lung 041340493 C34.12 8552148154 Health Concerns Section Related Observation LastModified by Organization Detai ls LastModified Time None Recorded Concern Status LastModified by Organization Details LastModified Time None Recorded Payers Encounter Date Sequence Insurance Name Policy Number Policy Baxter Covered Member ID Baxter Member ID Guarantor Name 07/26/2025 1 [place] Niharika Narvaez [id number] 5 Niharika Narvaez 07/26/2025 2 [employer] [id number] Niharika Narvaez OBGyn Episode No OBEpisode recorded.
--- OUTSIDE RECORDS SUMMARY | 2025-09-14 21:11 | XMS_ITS | Continuity of Care Document ---
Author Organization [place] - [facility] [facility] [place] [facility] Address [address] [place] [address] Care Team Providers Care Dependency Director Name Role Phone JEWELLMAXIMILIANO Primary Care Provider JARED PATTERSON Referring Provider LARS MEHTA Radiation Oncologist Assessment Encounter Date Assessment Date Assessment LastModified by Organization Details LastModified Time 08/06/2025 08/06/2025 Radiation Therapy Current Dose:1000 Dose [id number]: CHEMOTHERAPYn o: Type: REVIEWED: Port Film: Y Dosimetry: Y Isodose: Y [email or web address] Not available 08/06/2025 12:49:00 Plan of Treatment Reminders Order Date Submit Date Provider Last Modified By Organization Details Last Modified Time Details Appointments OV EST 15 026 02:00PM Lars Mehta MD Not available Not available Not available Lab None record ed. Referral None record ed. Procedures None record ed. Surgeries None record ed. Imaging None record ed. Medication Orders None record ed. Patient TargetsNo targets recorded. Patient Instructions Encounter Date Encounter Id Patient Instructions Last Modified By Organization Details Last Modified Time 08/06/202519790803 She came started her radiation today she has no new complaints remain on Eliquis. Treatment planning note: Her tumor medial aspect of the left upper lung was planned with SBRT technique utilizing 6 mV photon beam by 3 arcs verification films were taken today and approved before starting her 1st dose of radiation. [email or web address] Not available 08/06/2025 12:55:43 Reason for Referral None Reported. Results Created Date Observation Date Name Description Value Unit Range Abnormal Flag Note LastModifiedBy Organization Detail LastModifiedTime 07/30/20 25 07/30/2025 PET-C T, skull base to mid-t high scan [facility] Name: NIHARIKA NARVAEZ FAY [address] [employer] Phys: Sandra dick[place] [address] : 1949 Age: 74 Sex: F Acct: [id number] Loc: G.PET PHONE #: [phone] Exam Date: 2024 Status : DEP CLI FAX #: Rad# [id number] Unit# [id number] Admit Date: 2024 EXAMS: CPT CODE: [id number] PET W/CT SKULL- MID THIGH 56162 EXAMIN ATION: SKULL BASE TO MID THIGH [...] nodes. PAGE 1 Signed Report (JEFF NUED) [facility] Name: NIHARIKA NARVAEZ FAY [address] [employer] Phys: Sandra dickinson MD,[place] [address] : 1949 Age: 74 Sex: F Acct: [id number] Loc: G.PET PHONE #: Exam Date: 2024 Status : DEP CLI FAX #: Rad# [id number] Unit# [id number] Admit Date: 2024 EXAMS: CPT CODE: [id number] 457 PET W/CT SKULL- MID THIGH 15215 ABDOME N AND PELVIS : Wide range [...] MD PAGE 2 Signed Report (JEFF NUED) [facility] Name: NIHARIKA NARVAEZ FAY [facility] [employer] Phys: Sandra dickinson MD,Carrie [facility] [place] [address] : 1949 Age: 74 Sex: F Acct: [id number] Loc: G.PET PHONE #: Exam Date: 2024 Status : DEP CLI FAX #: Rad# [id number] Unit# [id number] Admit Date: 2024 EXAMS: CPT CODE: [id number] 457 PET W/CT SKULL- MID THIGH 35978 CC: Peter Giordano M.D.; Lars dickinson MD Dictat ed Date/T nayeli: 2024 (1209) Techno logist : TIA CHOUDHURY, TIFFANY, ELECTRICIAN RECTIFIER MAINTENANCE Transc ribed Date/T nayeli: 2024 (1209) Transc riptio nist: DR.IND Dumont onic Signat ure Date/T nayeli: 2024 (1209) Printe d Date/T nayeli: 2024 (1221) BATCH NO: N/A PAGE 3 Signed Report CC'ed Logic: Orderi ng Provid er: SANDRA SOUSA Attend ing Provid er: SANDRA SOUSA Referr ing Provid er: SANDRA SOUSA Consul ting Provid er: MILLY [facility] [address] , [place], [address], 07/30/2025 13:12:15 07/30/20 25 07/30/2025 PET-C T, skull base to mid-t high scan [facility] Phys: Sandra dickinson MD,[place] [address] : 1949 Age: 74 Sex: F Acct: [id number] Loc: G.PET PHONE #: Exam Date: 2024 Status : DEP CLI FAX #: Rad# [id number] Unit# [id number] Admit Date: 2024 Report Has Been Amende d EXAMS: CPT CODE: [id number] 457 PET W/CT SKULL- MID THIGH 65852 Addend - 2024 SIGNED 2024 ADDEND UM: [id number] 457 PET/WC TSKMT ADDEND #1 Greate r than 70% lumina l [...] NECK: PAGE 1 Signed Report (JEFF NUED) [facility] Name: NIHARIKA NARVAEZ FAY [address] [employer] Phys: Sandra dickinson MD,[facility] [place] [address] : 1949 Age: 74 Sex: F Acct: [id number] Loc: G.PET PHONE #: Exam Date: 2024 Status : DEP CLI FAX #: [phone] Rad# [id number] Unit# [id number] Admit Date: 2024 Report Has Been Amende d EXAMS: CPT CODE: [id number] 457 PET W/CT SKULL- MID THIGH 86554 Physio logic radiot racer distri [facility] . Non-di agnost ic CT findin gs: [...] CHRIS: PAGE 2 Signed Report (JEFF NUED) [facility] Name: NIHARIKA NARVAEZ FAY [address] [employer] Phys: Sandra [place] [address] : 1949 Age: 74 Sex: F Acct: [id number] Loc: G.PET PHONE #: [phone] Exam Date: 2024 Status : DEP CLI FAX #: Rad# [id number] Unit# [id number] Admit Date: 2024 Report Has Been Amende d EXAMS: CPT CODE: [id number] 457 PET W/CT SKULL- MID THIGH 29550 Intens e uptake to left upper lobe [...] r PAGE 3 Signed Report (JEFF NUED) [facility] Name: NIHARIKA NARVAEZ FAY [address] [employer] Phys: Sandra dickinson [place] [address] : 1949 Age: 74 Sex: F Acct: [id number] Loc: G.PET PHONE #: Exam Date: 2024 Status : DEP CLI FAX #: Rad# [id number] Unit# [id number] Admit Date: 2024 Report Has Been Amende d EXAMS: CPT CODE: [id number] 457 PET W/CT SKULL- MID THIGH 80263 medici ne bone scan Septem 2024 FINDIN [...] 146. PAGE 4 Signed Report (JEFF NUED) [facility] Name: NIHARIKA NARVAEZ FAY [address] Prof[employer] Phys: Sandra dickinson [place] [address] : 1949 Age: 74 Sex: F Acct: [id number] Loc: G.PET PHONE #: Exam Date: 2024 Status : DEP CLI FAX #: Rad# [id number] Unit# [id number] Admit Date: 2024 Report Has Been Amende d EXAMS: CPT CODE: [id number] 457 PET W/CT SKULL- MID THIGH 46574 MUSCUL OSKELE FLOYD: Physio logic radiot racer [...] (1209) Techno logist : TIA CHOUDHURY, TIFFANY, ELECTRICIAN RECTIFIER MAINTENANCE Transc ribed Date/T nayeli: 2024 (1209) Transc riptio nist: DR.IND Dumont onic Signat ure Date/T nayeli: 2024 (1209) Printe d Date/T nayeli: 2024 (1506) BATCH NO: N/A PAGE 5 Signed Report CC'ed Logic: Orderi ng Provid er: SANDRA SOUSA Attend ing Provid er: SANDRA SOUSA Referr ing Provid er: SANDRA SOUSA Consul ting Provid er: MILLY Queen [facility] [address] , [place], [address], 07/31/2025 08:11:40 08/23/20 25 08/23/2025 XR, chest , 2 view [facility] Name[facility] NIHARIKA NARVAEZ FAY [address] [place] [address] Phys: Sandra dickinson MD,Carrie [facility] Center[place] [address] : 1949 Age: 75 Sex: F Acct: [id number] Loc: G.RAD PHONE #: Exam Date: 2024 Status : REG CLI FAX #: [phone] Rad# [id number] Unit# [id number] Admit Date: 2024 EXAMS: CPT CODE: [id number] 698 CHEST 2 VIEWS 85937 CHEST RADIOG RAPHS, 2 VIEWS CLINIC AL HISTOR Y: Follow -up after comple ting radiat ion along. ANIKAIN GS: Fronta l and latera l views [...] JASMINE Najera CC: Peter Giordano M.D.; Lars dicknison MD Dictat ed Date/T nayeli: 2024 (2213) Techno logist : CHIRAG Gonzales(R ) Transc ribed Date/T nayeli: 2024 (2214) Transc riptio nist: TIFFANY Electr onic Signat ure Date/T nayeli: 2024 (221) Printe d Date/T nayeli: 2024 (2331) BATCH NO: N/A PAGE 1 Signed Report CC'ed Logic: Orderi ng Provid er: SANDRA SOUSA Attend ing Provid er: SANDRA SOUSA Referr ing Provid er: SANDRA SOUSA Consul ting Provid er: MILLY Queen [address] , [place], [address], 08/24/2025 09:07:54 Result Notes None recorded. Problems Name Problem SNOMED Code Status Onset Date Resolution Date Notes Provider Name and Address Organization Details Recorded Time Small cell carcinoma of lung 364021406 Active 025 ZOHRA Mistry - [place] - [place] & [place] 5 08:29:03 Tobacco user 451275760 Active 025 ZOHRA Mistry [facility] & [place] 5 11:32:20 Problem Notes None recorded. Medical Equipment None Reported. Allergies Allergen ID Allergen Name Allergen Category Reaction Reaction Severity Criticality Documentation Date Start Date Code Code System Note Provider Name and Address Organization Details Recorded Time 332233 cefdinir medicatio n confusion mild [facility] 07/23/2025 87005 RxNorm ZOHRA Mistry [facility] & [place] 5 09:11:23 063050 Boniva medicatio n other Not available [facility] 07/23/2025 97554 4 RxNorm Cause s extre me fluct uatio n in BP Mia sifuentes [facility] & [place] 5 09:12:20 261259 Avelox medicatio n Not available Not available unabletoasse 07/23/2025 87542 6 RxNorm ZOHRA Mistry [facility] & [place] 5 09:12:59 Medications Name Sig Start Date [...] Details Last Updated DateTime 5 157.48 cm 97.3 [degF] 97 % 97 % 2 L/min 67 /min 22 /min 173/72 mm[Hg] Mia FOSTER [facility] [place] 12:53:37 Social History Question Answer Notes LastModified by Organizat ion Details LastModified Time Tobacco Smoking Status Current Every Day Smoker ZOHRA Mistry [facility] & [place] 07/23/2025 11:30:06 What Was The Date Of Your Most Recent Tobacco Screening? 07/23/2025 Information not available 07/23/2025 What Is Your Current Pack Years? 30maria antonia coronado Information not available 07/23/2025 At What Age Did You Start Smoking Tobacco? 18 Information not available 07/23/2025 How Much Tobacco Do You Smoke? 1 PPW Hx Of 1 Pk/day Information not available 07/23/2025 Has Tobacco Cessation Counseling Been Provided? Yes Smoking Cessation Brochures From [facility] Provided Information not available 07/23/2025 On [...] ICD10 Code Diagnosis IMO Codes Diagnosis Note [id number] MD [facility] [address] [place] [address] 07/23/2025 10:12:44 07/23/2025 11:53:43 Small cell carcinoma of lung 265307815 C34.12 3829386113 Tobacco user 648482633 Z 72.0 7234483 [id number] Lars Mehta MD [address] [address] 07/26/2025 09:56:22 07/26/2025 11:19:24 Small cell carcinoma of lung 319960396 C34.12 6294363170 [id number] Lars Mehta MD [address] [place] [address] 08/06/2025 12:45:36 08/06/2025 14:33:26 Small cell carcinoma of lung 869511473 C34.12 7286931757 Health Concerns Section Related Observation LastModified by Organization Detai ls LastModified Time None Recorded Concern Status LastModified by Organization Details LastModified Time None Recorded Payers Encounter Date Sequence Insurance Name Policy Number Policy Baxter Covered Member ID Baxter Member ID Guarantor Name 08/06/2025 1 [place] Niharika Narvaez [id number] 5 Niharika Narvaez 08/06/2025 2 [employer] [place] [employer] Niharika Narvaez [id number] Niharika Narvaez OBGyn Episode No OBEpisode recorded.
--- OUTSIDE RECORDS SUMMARY | 2025-09-14 21:12 | XMS_ITS | Continuity of Care Document ---
Author Organization [place] - [facility] [facility] Address [address] [place] [address] Care Team Providers Care Social Welfare Research Worker Name Role Phone MAXIMILIANO CORCORAN Primary Care Provider [phone] YESENIAJARED Referring Provider LARS MEHTA Radiation Oncologist [phone] Assessment No assessment recorded. Plan of Treatment [...] T, skull base to mid-t high scan [facility] Name: NIHARIKA NARVAEZ LARA [address] [facility] Phys: Sandra dickinson MD,Emanuelg [facility] [place] [address] : 1949 Age: 74 Sex: F Acct: [id number] Loc: G.PET PHONE #: Exam Date: 2024 Status : DEP CLI FAX #: Rad# [id number] Unit# [id number] Admit Date: 2024 EXAMS: CPT CODE: [id number] 457 PET W/CT SKULL- MID THIGH 65618 EXAMIN ATION: SKULL BASE TO MID THIGH [...] AND NECK: Physio logic radiot racer distri [facility] . Non-di agnost ic CT [...] nodes. PAGE 1 Signed Report (JEFF NUED) [facility] Name: NIHARIKA NARVAEZ FAY [address] [facility] Phys: Sandra dickinson [place] [address] : 1949 Age: 74 Sex: F Acct: [id number] Loc: Dhaval.PET PHONE #: Exam Date: 2024 Status : DEP CLI FAX #: [phone] Rad# [id number] Unit# [id number] Admit Date: 2024 EXAMS: CPT CODE: [id number] 457 PET W/CT SKULL- MID THIGH 39247 ABDOME N AND PELVIS : Wide range [...] MD PAGE 2 Signed Report (JEFF NUED) [facility] Name: NIHARIKA NARVAEZ FAY PSafe Phys: Sandra dickinson MD,Carrie [facility] [place] [address] : 1949 Age: 74 Sex: F Acct: [id number] Loc: G.PET PHONE #: [phone] Exam Date: 2024 Status : DEP CLI FAX #: Rad# [id number] Unit# [id number] Admit Date: 2024 EXAMS: CPT CODE: [id number] 457 PET W/CT SKULL- MID THIGH 75836 CC: Peter Giordano M.D.; Lars dickinson MD Dictat ed Date/T nayeli: 2024 (1209) Techno logist : TIFFANY SHARP, DISTRICT TRAFFIC CHIEF Transc ribed Date/T nayeli: 2024 (1209) Transc riptio nist: DR.IND DEL VALLE Electr onic Signat ure Date/T nayeli: 2024 (1209) Printe d Date/T nayeli: 2024 (1221) BATCH NO: N/A PAGE 3 Signed Report CC'ed Logic: Orderi ng Provid er: SANDRA SOUSA Attend ing Provid er: SANDRA SOUSA Referr ing Provid er: SANDRA SOUSA Consul ting Provid er: MILLY Queen [address] , [place], [address], 07/30/2025 13:12:15 07/30/20 25 07/30/2025 PET-C T, skull base to mid-t high scan [facility] Name: NIHARIKA NARVAEZ FAY [address] [employer] Phys: Sandra dickinson MD,[place] [address] : 1949 Age: 74 Sex: F Acct: [id number] Loc: G.PET PHONE #: [phone] Exam Date: 2024 Status : DEP CLI FAX #: [phone] Rad# [id number] Unit# [id number] Admit Date: 2024 Report Has Been Amende d EXAMS: CPT CODE: [id number] 457 PET W/CT SKULL- MID THIGH 97653 Addend um - 2024 SIGNED 2024 ADDEND UM: [id number] 457 PET/WC TSKMT ADDEND UM #1 Greate [...] NECK: PAGE 1 Signed Report (JEFF NUED) [facility] Name: NIHARIKA NARVAEZ FAY [address] [facility] Phys: Sandra dickinson [place] [address] : 1949 Age: 74 Sex: F Acct: [id number] Loc: G.PET PHONE #: Exam Date: 2024 Status : DEP CLI FAX #: Rad# [id number] Unit# [id number] Admit Date: 2024 Report Has Been Amende d EXAMS: CPT CODE: [id number] 457 PET W/CT SKULL- MID THIGH 56850 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 [...] evalua arabella on curren t examin ation. Indiou m SUV of 11.3. Non-di agnost ic [...] CHRIS: PAGE 2 Signed Report (JEFF NUROLDAN) [facility] Name: NIHARIKA NARVAEZ FAY [employer] Phys: Sandra dickinson MD,[facility] Lind[facility]andra [place] [address] : 1949 Age: 74 Sex: F Acct: [id number] Loc: G.PET PHONE #: Exam Date: 2024 Status : DEP CLI FAX #: [phone] Rad# [id number] Unit# [id number] Admit Date: 2024 Report Has Been Amende d EXAMS: CPT CODE: [id number] 457 PET W/CT SKULL- MID THIGH 14516 Intens e uptake to left upper lobe [...] r PAGE 3 Signed Report (JEFF NUED) [facility] Name: NIHARIKA NARVAEZ FAY [address] [facility] Phys: Sandra dickinson MD,[facility] [place] [address] : 1949 Age: 74 Sex: F Acct: [id number] Loc: G.PET PHONE #: Exam Date: 2024 Status : DEP CLI FAX #: [phone] Rad# [id number] Unit# [id number] Admit Date: 2024 Report Has Been Amende d EXAMS: CPT CODE: [id number] 457 PET W/CT SKULL- MID THIGH 88134 medici ne bone scan Septem 2024 FINDIN [...] 146. PAGE 4 Signed Report (JEFF NUED) [facility] Name: NIHARIKA NARVAEZ FAY [address] [employer] Phys: Sandra dickinson MD,[place] [address] : 1949 Age: 74 Sex: F Acct: [id number] Loc: G.PET PHONE #: Exam Date: 2024 Status : DEP CLI FAX #: Rad# [id number] Unit# [id number] Admit Date: 2024 Report Has Been Amende d EXAMS: CPT CODE: [id number] 457 PET W/CT SKULL- MID THIGH 24405 MUSCUL OSKELE FLOYD: Physio logic radiot racer [...] at 1209 Report ed and signed by: TOAMS GRAMAJO MD CC: Peter Giordano M.D.; Lars dickinson MD Dictat ed Date/T nayeli: 2024 (1209) Techno logist : TIA CHOUDHURY, BS, DISTRICT TRAFFIC CHIEF Transc ribed Date/T nayeli: 2024 (1209) Transc riptio nist: DR.IND DEL VALLE Electr onic Signat ure Date/T nayeli: 2024 (1204) Printe d Date/T nayeli: 2024 (0410) BATCH NO: N/A PAGE 5 Signed Report CC'ed Logic: Orderi ng Provid er: SANDRA SOUSA Attend ing Provid er: SANDRA SOUSA Referr ing Provid er: SANDRA SOUSA Consul ting Provid er: MILLY Queen [address], [place], [address], 07/31/2025 08:11:40 08/23/2008/23/2025 XR, chest , 2 view [facility] Name: NIHARIKA NARVAEZ FAY [facility] [address] Phys: Sandra dickinson MD,Carrie [facility] [place] [address] : 1949 Age: 75 Sex: F Acct: [id number] Loc: G.RAD PHONE #: [phone] Exam Date: 2024 Status : REG CLI FAX #: Rad# [id number] Unit# [id number] Admit Date: 2024 EXAMS: CPT CODE: [id number] 698 CHEST 2 VIEWS 50283 CHEST RADIOG RAPHS, 2 VIEWS CLINIC AL [...] ed and signed by: ANGELIQUE STEWART, JASMINE [place] N CC: Peter Giordano M.D.; Lars dickinson MD Dictat ed Date/T nayeli: 2024 (2213) Techno logist : CHIRAG Gonzales(R ) Transc ribed Date/T nayeli: 2024 (2213) Transc riptio nist: DR.WIL TIFFANY Joseph onic Signat ure Date/T nayeli: 2024 (2213) Printe d Date/T nayeli: 2024 (2331) BATCH NO: N/A PAGE 1 Signed Report CC'ed Logic: Orderi ng Provid er: SANDRA SOUSA Attend ing Provid er: ASNDRA SOUSA Referr ing Provid er: SANDRA SOUSA Consul ting Provid er: MILLY [facility] [address], [place], [address], 08/24/2025 09:07:54 Result Notes None recorded. Problems Name Problem SNOMED Code Status Onset Date Resolution Date Notes Provider Name and Address Organization Details Recorded Time Small cell carcinoma of lung 234339396 Active 025 ZOHRA Mistry [facility] & [place] 5 08:29:03 Tobacco user 452373487 Active 025 ZOHRA Mistry [facility] & [place] 5 11:32:20 Problem Notes None recorded. Medical Equipment None Reported. Allergies Allergen ID Allergen Name Allergen Category Reaction Reaction Severity Criticality Documentation Date Start Date Code Code System Note Provider Name and Address Organization Details Recorded Time 916419 cefdinir medicatio n confusion mild high 07/23/2025 52724 RxNorm ZOHRA Mistry [facility] & [place] 5 09:11:23 151926 Boniva medicatio n other Not available high 07/23/2025 94022 4 RxNorm Cause s extre me fluct uatio n in BP Mia sifuentes, ZOHRA FOSTER [facility] & [place] 5 09:12:20 217554 Avelox medicatio n Not available Not available unabletoasse 07/23/2025 63180 6 RxNorm Mia sifuentes, ZOHRA - LPNT [facility] & [place] 5 09:12:59 Medications Name Sig Start Date [...] and Address Organization Details Last Updated DateTime 157.48 cm 97.7 [degF] 93 % 93 % 2 L/min 73 /min 22 /min 171/70 mm[Hg] Mia العلي [facility] & [place] 11:32:37 Social History Question Answer Notes LastModified by Organizat ion Details LastModified Time Tobacco Smoking Status Current Every Day Smoker Mia Dumont [facility] & [place] 07/23/2025 11:30:06 What Was The Date Of [...] Been Provided? Yes Smoking Cessation Brochures From [facility] Dept Provided Information not available 07/23/2025 [...] ICD10 Code Diagnosis IMO Codes Diagnosis Note [id number] MD HANNA Lozano[address] [address] 07/23/2025 10:12:44 07/23/2025 11:53:43 Small cell carcinoma of lung 623725382 C34.12 8610642210 Tobacco user 144517017 Z 72.0 7715961 [id number] MD HANNA Lozano [address] [address] 07/26/2025 09:56:22 07/26/2025 11:19:24 Small cell carcinoma of lung 862378293 C34.12 9919778288 [id number] MD [facility] [address] [address] 08/06/2025 12:45:36 08/06/2025 14:33:26 Small cell carcinoma of lung 046645990 C34.12 7775112235 [id number] MD HANNA Lozano [facility] [address] [place] [address] 08/07/2025 12:49:55 08/07/2025 13:36:59 Small cell carcinoma of lung 473277634 C34.12 7605794187 [id number] MD HANNA Lozano [facility] [address] [place] [address] 08/08/2025 12:53:10 08/08/2025 16:24:49 Small cell carcinoma of lung 353506560 C34.12 0357075979 Health Concerns Section Related Observation LastModified by Organization Detai ls LastModified Time None Recorded Concern Status LastModified by Organization Details LastModified Time None Recorded Payers Encounter Date Sequence Insurance Name Policy Number Policy Baxter Covered Member ID Baxter Member ID Guarantor Name 08/08/2025 1 [place] Niharika Farias Celio [id number] Niharika Lara Narvaez 08/08/2025 2 [facility] Niharika Farias Celio [id number] Niharika Narvaez Notes Date Note Type Note [...] on Plavix and aspirin. Lars Mehta MD [address] [facility], [place], [address], [place] - [place] [facility] & [place] 08/13/2025 11:40:35 OBGyn Episode No OBEpisode recorded.
--- OUTSIDE RECORDS SUMMARY | 2025-09-14 21:12 | XMS_ITS | Continuity of Care Document ---
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 Multiple comorbid conditions including COPD sleep apnea vascular insufficiency of the legs on Plavix and aspirin. We will order a PET-CT scan to complete her staging also aid in her treatment planning. For disease limited left upper lung she will be candidate for stereotactic left upper lung radiation for a dose of 5000 cGy to be delivered by 5 fractions by SBRT technique. Later and to be followed by immunotherapy if possible. Because of her poor memory multiple comorbid conditions no need for future prophylactic brain radiation. However MRI of the brain if the C2-6 months might be advisable. Patient was told about possible complication including scar tissue that might exacerbate her COPD with SBRT treatment will minimize radiation to the heart lungs spinal cord and esophagus. Information will be submitted to insurance for approval before scheduling her for simulation for SBRT she is scheduled to have PET-CT scan on 07/28/2025. Interview and review of records lasted for 60 minutes. Will order nicotine patches to help her quit smoking. Thanks for allowing us participate in the care of this pleasant patient. ej Not available 07/23/2025 11:46:19 Plan of Treatment Reminders Order Date Submit Date Provider Last Modified By Organization Details Last Modified Time Details Appointments OV EST 15 2025 02:00P M Lars Mehta MD Not available Not available Not available Lab None recorded. Referral None recorded. Procedures None recorded. Surgeries None recorded. Imaging PET-CT, skull base to mid-thigh scan 2024 025 [facility] (Centralized Scheduling), [address] [place] [address], [address], 07/30/2025 12:22:55 Medication Orders nicotine 14 mg/24 hr daily transderm al patch 2024 025 ej [facility], [address], [address], 07/23/2025 11:46:41 Patient TargetsNo targets recorded. Patient InstructionsNo instructions recorded. Reason for Referral None Reported. Results Created Date Observation Date Name Description Value Unit Range Abnormal Flag Note LastModifiedBy Organization Detail LastModifiedTime 07/30/2007/30/2025 PET-C T, skull base to mid-t high scan [facility] Name: NIHARIKA NARVAEZ FAY [address] [place] [address] Phys: Sandra [place] [address] : 1949 Age: 74 Sex: F Acct: [id number] Loc: G.PET PHONE #: Exam Date: 2024 Status : DEP CLI FAX #: Rad# [id number] Unit# [id number] Admit Date: 2024 EXAMS: CPT CODE: [id number] PET W/CT SKULL- MID THIGH 89420 EXAMIN ATION: SKULL BASE TO MID THIGH [...] nodes. PAGE 1 Signed Report (JEFF NUED) [facility] Name: NIHARIKA NARVAEZ FAY [address] Phys: Sandra dick[place] [address] : 1949 Age: 74 Sex: F Acct: [id number] Loc: G.PET PHONE #: [phone] Exam Date: 2024 Status : DEP CLI FAX #: Rad# [id number] Unit# [id number] Admit Date: 2024 EXAMS: CPT CODE: [id number] 457 PET W/CT SKULL- MID THIGH 83999 ABDOME N AND PELVIS : Wide range [...] MD PAGE 2 Signed Report (JEFF NUED) [facility] Name: NIHARIKA NARVAEZ [employer] Phys: [place] [address] : 1949 Age: 74 Sex: F Acct: [id number] Loc: G.PET PHONE #: [phone] Exam Date: 2024 Status : DEP CLI FAX #: Rad# [id number] Unit# [id number] Admit Date: 2024 EXAMS: CPT CODE: [id number] 457 PET W/CT SKULL- MID THIGH 74409 CC: Peter Giordano M.D.; Lars dickinson MD Dictat ed Date/T nayeli: 2024 (1209) Techno logist : TIFFANY SHARP, REPRESENTATIVE [employer]LEB[employer] Transc ribed Date/T nayeli: 2024 (1209) Transc riptio nist: DR.IND Dumont onic Signat ure Date/T nayeli: 2024 (1209) Printe d Date/T nayeli: 2024 (1221) BATCH NO: N/A PAGE 3 Signed Report CC'ed Logic: Orderi ng Provid er: SANDRA SOUSA Attend ing Provid er: SANDRA SOUSA Referr ing Provid er: SANDRA SOUSA Consul ting Provid er: M[facility]Y [facility] [address] [place], [address], 07/30/2025 13:12:15 07/30/20 25 07/30/2025 PET-C T, skull base to mid-t high scan [facility] Name: NIHARIKA NARVAEZ [employer] Phys: Sandra dickinson MD,[place] [address] : 1949 Age: 74 Sex: F Acct: [id number] Loc: Dhaval.PET PHONE #: [phone] Exam Date: 2024 Status : DEP CLI FAX #: Rad# [id number] Unit# [id number] Admit Date: 2024 Report Has Been Amende d EXAMS: CPT CODE: [id number] 457 PET W/CT SKULL- MID THIGH 78575 Addend - 2024 SIGNED 2024 ADDEND UM: [id number] 457 PET/WC TSKMT ADDEND UM #1 Greate [...] NECK: PAGE 1 Signed Report (JEFF NUED) [facility] Name: NIHARIKA NARVAEZ FAY [address] Phys: Sandra dick[place] [address] : 1949 Age: 74 Sex: F Acct: [id number] Loc: Dhaval.PET PHONE #: [phone] Exam Date: 2024 Status : DEP CLI FAX #: Rad# [id number] Unit# [id number] Admit Date: 2024 Report Has Been Amende d EXAMS: CPT CODE: [id number] PET W/CT SKULL- MID THIGH 73457 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 [...] CHRIS: PAGE 2 Signed Report (JEFF NUED) [facility] Name: NIHARIKA NARVAEZ FAY [address] [employer] Phys: Sandra dickinson [place] [address] : 1949 Age: 74 Sex: F Acct: [id number] Loc: Dhaval.PET PHONE #: Exam Date: 2024 Status : DEP CLI FAX #: [phone] Rad# [id number] Unit# [id number] Admit Date: 2024 Report Has Been Amende d EXAMS: CPT CODE: [id number] 457 PET W/CT SKULL- MID THIGH 63697 Intens e uptake to left upper lobe [...] r PAGE 3 Signed Report (JEFF NUED) [facility] Name: NIHARIKA NARVAEZ FAY [address] Phys: Sandra dickinson MD,[place] [facility] [place] [address] : 1949 Age: 74 Sex: F Acct: [id number] Loc: G.PET PHONE #: Exam Date: 2024 Status : DEP CLI FAX #: Rad# [id number] Unit# [id number] Admit Date: 2024 Report Has Been Amende d EXAMS: CPT CODE: [id number] 457 PET W/CT SKULL- MID THIGH 84382 medici ne bone scan Septem 2024 FINDIN [...] image 146. PAGE 4 Signed Report (JEFF NUROLDAN) [facility] Name: NIHARIKA NARVAEZ FAY [address] Phys: Sandra dickinson MD,[place] [address] : 1949 Age: 74 Sex: F Acct: [id number] Loc: G.PET PHONE #: [phone] Exam Date: 2024 Status : DEP CLI FAX #: Rad# [id number] Unit# [id number] Admit Date: 2024 Report Has Been Amende d EXAMS: CPT CODE: [id number] 457 PET W/CT SKULL- MID THIGH 61393 MUSCUL OSKELE FLOYD: Physio logic radiot racer [...] 2024 (1209) Techno logist : TIFFANY SHARP, REPRESENTATIVE [employer]LEBOTOMY SERVICES Transc ribed Date/T nayeli: 2024 (1209) Transc riptio nist: DR.IND Dumont onic Signat ure Date/T nayeli: 2024 (1209) Printe d Date/T nayeli: 2024 (1506) BATCH NO: N/A PAGE 5 Signed Report CC'ed Logic: Orderi ng Provid er: SANDRA SOUSA Attend ing Provid er: SANDRA SOUSA Referr ing Provid er: SANDRA SOUSA Consul ting Provid er: MILLY pagan [facility] [address] , [place], [address], 07/31/2025 08:11:40 08/23/20 25 08/23/2025 XR, chest , 2 view [facility] Name: NIHARIKA NARVAEZ FAY [facility] [address] Phys: Sandra dickinson MD,[place] [address] : 1949 Age: 75 Sex: F Acct: [id number] Loc: G.RAD PHONE #: Exam Date: 2024 Status : REG CLI FAX #: Rad# [id number] Unit# [id number] Admit Date: 2024 EXAMS: CPT CODE: [id number] 698 CHEST 2 VIEWS 45604 CHEST RADIOG RAPHS, 2 VIEWS CLINIC AL [...] dickinson MD Dictat ed Date/T nayeli: 2024 (2214) Techno logist : CHIRAG Gonzales(R ) Transc ribed Date/T nayeli: 2024 (2214) Transc riptio nist: DR.WIL TIFFANY Joseph onic Signat ure Date/T nayeli: 2024 (2214) Printe d Date/T nayeli: 2024 (7671) BATCH NO: N/A PAGE 1 Signed Report CC'ed Logic: Orderi ng Provid er: SHEZACK SOUSA Attend ing Provid er: SHEZACK SOUSA Referr ing Provid er: SHEKirit SOUSA Consul ting Provid er: MILLY [place] [address] , [place], [address], 08/24/2025 09:07:54 Result Notes None recorded. Problems Name Problem SNOMED Code Status Onset Date Resolution Date Notes Provider Name and Address Organization Details Recorded Time Small cell carcinoma of lung 942051029 Active 025 Mia sifuentes, [place] - [facility] & [place] 5 08:29:03 Tobacco user 221107917 Active 025 Mia sifuentes, [place] - [facility] & [place] 5 11:32:20 Problem Notes None recorded. Medical Equipment None Reported. Allergies Allergen ID Allergen Name Allergen Category Reaction Reaction Severity Criticality Documentation Date Start Date Code Code System Note Provider Name and Address Organization Details Recorded Time 740936 cefdinir medicatio n confusion [facility] 07/23/2025 24370 RxNorm Mia sifuentes, [place]OH[place] - [facility] & [place] 5 09:11:23 235388 Boniva medicatio n other Not available [facility] 07/23/2025 32986 4 RxNorm Cause s extre me fluct uatio n in BP Mia sifuentes, [place] - [facility] & [place] 5 09:12:20 270953 Avelox medicatio n Not available Not available unabletoasse 07/23/2025 54919 6 RxNorm Mia sifuentes, [place] - [facility] & [place] 5 09:12:59 Medications Name Sig Start Date [...] Available Vitals Date Recorded Body height Body mass index (BMI) Body weight Body temperature Oxygen saturation Oxygen saturation in Arterial blood by Pulse oximetry Heart rate Respiratory rate Systolic And Diastolic Provider Name and Address Organization Details Last Updated DateTime 157.48 cm 21.2 kg/m2 82534.7 1 g 97.3 [degF] 83 % 83 % 74 /min 20 /min 163/72 mm[Hg] Mia العلي [facility] & [place] 11:17:18 Social History Question Answer Notes LastModified by Organizat ion Details LastModified Time Tobacco Smoking Status Current Every Day Smoker Mia Dumont [facility] & [place] 07/23/2025 11:30:06 What Was The Date Of [...] Been Provided? Yes Smoking Cessation Brochures From [facility] Provided Information not available [...] ICD10 Code Diagnosis IMO Codes Diagnosis Note [id number] MD [facility] [place] [address] 07/23/2025 10:12:44 07/23/2025 11:53:43 Small cell carcinoma of lung 981714392 C34.12 5410925870 Tobacco user 885422132 Z 72.0 6315233 Health Concerns Section Related Observation LastModified by Organization Detai ls LastModified Time None Recorded Concern Status LastModified by Organization Details LastModified Time None Recorded Payers Encounter Date Sequence Insurance Name Policy Number Policy Baxter Covered Member ID Baxter Member ID Guarantor Name 07/23/2025 1 [place] Niharika Farias Celio [id number] Niharika Narvaez 07/23/2025 2 [facility] Niharika Farias Celio [id number] Niharika Narvaez Notes Date Note Type Note Provider Name and Address Organization Details Recorded Time 07/23/2025 text/html Thanks Dr. Rojas for referring this nice lady.A pleasant 74-year-old white female has 2 sons and 1 daughter came accompanied with her and daughter she has been for 57 years she is here for consolidation of radiotherapy to small cell carcinoma of the left upper lung.History of heavy smoking started age 18 smoked 1 pack a day total 57 pack year history currently still smoking 1 pack a week had sleep apnea machine was followed by for sleep apnea with a chest x-ray once a year recent chest x-ray in March 2025 showed normal density left upper lung CT scan of the chest on 07/11/2025 showed a 2.9 mass in the medial aspect of the left upper lung CT scan of the abdomen and pelvis showed no evidence of metastatic disease she was seen byDr. Apple and on 06/22/2025 she had an EBUS with biopsy of left upper lung showing small cell carcinoma lymph node biopsy left 10 right 4 and left for and level 7 were all free of metastatic disease. Patient was seen by Dr. Rojas had MRI of the brain and bone scan showing no metastatic disease. She has a small mole in the left side of the back later on she will showed to tool checker who treats her .She was referred to us for radiation therapy to be followed the possibly by immunotherapy under care of Dr. Rojas.Patient started oxygen on and off since April 2025 she lost 30 lb in 1 year because of poor appetite and smoking she has a history of lower spine surgery bilateral hip replacements after fraction of the pelvis 2018 bilateral leg stents due to vascular insufficiency since 2019 remain in Plavix and aspirin has a history of hypertension hyperlipidemia COPD and emphysema had colonoscopy 2 years ago had regular screening mammograms no family history of cancer she is [address] [employer]Lives with the who is very supportive of her. Family stated that she had recent poor memory for couple of years. Lars Mehta MD [address] [facility],[address], [place], [address], [facility] [place] [facility] [place] [facility] [place] 07/23/2025 11:46:35 OBGyn Episode No OBEpisode recorded.
--- OUTSIDE RECORDS SUMMARY | 2025-09-14 21:12 | XMS_ITS | Encounter Summary ---
Author Organization [facility] Address [address] [place] [address] Care Team Providers Care Computer Designer Name Role Phone Tariq Betancourt MD Primary Care Provider Encounter Details Date Type Department Care Team (Late st Contact Info) Description 07/06/2025 Results Follow-Up [facility] [address] [facility] [address] [place] [address] José Miguel Abdi MD [address] [facility] [address] [place] [address] Social History Tobacco Use Types Packs/Day Years [...] Description 06/24/2026 10:30 AM EDT Office Visit [facility] [address] [facility] [address] [place] [address] José Miguel Abdi MD [address] [facility] [address] [place] [address] documented as of this encounter Visit Diagnoses Not on filedocumented in this encounter Care Teams Computer Designer Relationship Specialty Start Date End Date Tariq Betancourt MD [address] [facility] [address] [place] [address] PCP - General Family Medicine 03/06/25 documented as of this encounter
--- OUTSIDE RECORDS SUMMARY | 2025-09-14 21:12 | XMS_ITS | Continuity of Care Document ---
Author Organization [place] - [facility]NT [facility] & [place] [facility] Address [address] [place] [address] Care Team Providers Care Safe And Vault Installer Name Role Phone JEWELL, MAXIMILIANO Primary Care Provider [phone] JARED ROJAS Referring Provider [phone] LARS MEHTA Radiation Oncologist Assessment Encounter Date [...] of this pleasant patient. ej Not available 08/13/2025 11:39:56 Plan of Treatment Reminders Order Date Submit Date Provider Last Modified By Organization Details Last Modified Time Details Appointments OV EST 15 2025 02:00P M Lars Mehta MD Not available Not available Not available Lab None recorded. Referral None recorded. Procedures None recorded. Surgeries None recorded. Imaging XR, chest, 2 view - Follow up after completin g radiation to lung 2024 025 [facility] [employer] [place], [address], 08/23/2025 23:33:01 Medication Orders prednison e 20 mg tablet 2024 025 JOHNNY [facility] 591, [address], [address], 09/03/2025 05:02:08 Patient TargetsNo targets recorded. Patient InstructionsNo instructions recorded. Reason for Referral None Reported. Results Created Date Observation Date Name Description Value Unit Range Abnormal Flag Note LastModifiedBy Organization Detail LastModifiedTime 07/30/2007/30/2025 PET-C T, skull base to mid-t high scan [facility] Name: NIHARIKA NARVAEZ FAY [facility] [employer] [facility] Phys: Sandra dickinson MD,[place] [address] : 1949 Age: 74 Sex: F Acct: [id number] Loc: G.PET PHONE #: [phone] Exam Date: 2024 Status : DEP CLI FAX #: Rad# [id number] Unit# [id number] Admit Date: 2024 EXAMS: CPT CODE: [id number] PET W/CT SKULL- MID THIGH 56180 EXAMIN ATION: SKULL BASE TO MID THIGH [...] nodes. PAGE 1 Signed Report (JEFF NUROLDAN) [facility] Name: NIHARIKA NARVAEZ FAY [address] [email or web address] Phys: Sandra dickinson MD,Carrie [place] [address] : 1949 Age: 74 Sex: F Acct: [id number] Loc: G.PET PHONE #: Exam Date: 2024 Status : DEP CLI FAX #: Rad# [id number] Unit# [id number] Admit Date: 2024 EXAMS: CPT CODE: [id number] 457 PET W/CT SKULL- MID THIGH 94073 ABDOME N AND PELVIS : Wide range [...] MD PAGE 2 Signed Report (JEFF NUROLDAN) [facility] Name: NIHARIKA NARVAEZ FA [employer] [address] Phys: Sandra dickinson MD,[facility] [place] [address] : 1949 Age: 74 Sex: F Acct: [id number] Loc: G.PET PHONE #: Exam Date: 2024 Status : DEP CLI FAX #: [phone] Rad# [id number] Unit# [id number] Admit Date: 2024 EXAMS: CPT CODE: [id number] 457 PET W/CT SKULL- MID THIGH 29087 CC: Peter Giordano M.D.; Lars dickinson MD Dictat ed Date/T nayeli: 2024 (1209) Techno logist : TIA CHOUDHURY BS, INDIRECT SALES REPRESENTATIVE Transc ribed Date/T nayeli: 2024 (1209) Transc riptio nist: DR.IND Dumont onic Signat ure Date/T nayeli: 2024 (1209) Printe d Date/T nayeli: 2024 (1221) BATCH NO: N/A PAGE 3 Signed Report CC'ed Logic: Orderi ng Provid er: SANDRA SOUSA Attend ing Provid er: SANDRA SOUSA Referr ing Provid er: SANDRA SOUSA Consul ting Provid er: MILLY Queen [facility] [address] [place], [address], 07/30/2025 13:12:15 07/30/20 25 07/30/2025 PET-C T, skull base to mid-t high scan [facility] Name: NIHARIKA NARVAEZ[address] Phys: Sandra dickinson MD,[place] [address] : 1949 Age: 74 Sex: F Acct: [id number] Loc: Dhaval.PET PHONE #: Exam Date: 2024 Status : DEP CLI FAX #: Rad# [id number] Unit# [id number] Admit Date: 2024 Report Has Been Amende d EXAMS: CPT CODE: [id number] 457 PET W/CT SKULL- MID THIGH 15242 Addend - 2024 SIGNED 2024 ADDEND UM: [id number] 457 PET/WC TSKMT ADDEND UM #1 Greate [...] NECK: PAGE 1 Signed Report (JEFF NUED) [facility] Name: NIHARIKA NARVAEZ FAAhmet [address] Phys: Sandra dickinson MD,[place] [address] : 1949 Age: 74 Sex: F Acct: [id number] Loc: G.PET PHONE #: Exam Date: 2024 Status : DEP CLI FAX #: [phone] Rad# [id number] Unit# [id number] Admit Date: 2024 Report Has Been Amende d EXAMS: CPT CODE: [id number] 457 PET W/CT SKULL- MID THIGH 23394 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 [...] CHRIS: PAGE 2 Signed Report (JEFF NUED) [facility] Name: NIHARIKA NARVAEZ FAY [address] [email or web address] Phys: Sandra dickinson [place] [address] : 1949 Age: 74 Sex: F Acct: [id number] Loc: G.PET PHONE #: Exam Date: 2024 Status : DEP CLI FAX #: Rad# [id number] Unit# [id number] Admit Date: 2024 Report Has Been Amende d EXAMS: CPT CODE: [id number] 457 PET W/CT SKULL- MID THIGH 36644 Intens e uptake to left upper lobe [...] r PAGE 3 Signed Report (JEFF NUED) [facility] Name: NIHARIKA NARVAEZ FAY [address] [employer] [email or web address] Phys: Sandra dickinson MD,[place] [place] [address] : 1949 Age: 74 Sex: F Acct: [id number] Loc: G.PET PHONE #: Exam Date: 2024 Status : DEP CLI FAX #: [phone] Rad# [id number] Unit# [id number] Admit Date: 2024 Report Has Been Amende d EXAMS: CPT CODE: [id number] 457 PET W/CT SKULL- MID THIGH 91141 medici ne bone scan Septem 2024 FINDIN [...] 146. 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 [...] 2024 (1209) Techno logist : TIFFANY SHARP, [facility] Transc ribed Date/T nayeli: 2024 (1209) Transc riptio nist: DR.IND DEL VALLE Electr onic Signat ure Date/T nayeli: 2024 (1209) Printe d Date/T nayeli: 2024 (1506) BATCH NO: N/A PAGE 5 Signed Report CC'ed Logic: Orderi ng Provid er: SANDRA SOUSA Attend ing Provid er: SANDRA SOUSA Referr ing Provid er: SANDRA SOUSA Consul ting Provid er: MILLY Queen [address] , [place], [address], 07/31/2025 08:11:40 08/23/2008/23/2025 XR, chest , 2 view [facility] Name: NIHARIKA NARVAEZ FAY [address] [employer] [email or web address] Phys: Sandra dickinson [place] [address] : 1949 Age: 75 Sex: F Acct: [id number] Loc: G.RAD PHONE #: [phone] Exam Date: 2024 Status : REG CLI FAX #: Rad# [id number] Unit# [id number] Admit Date: 2024 EXAMS: CPT CODE: [id number] 698 CHEST 2 VIEWS 72278 CHEST RADIOG RAPHS, 2 VIEWS CLINIC AL [...] dickinson MD Dictat ed Date/T nayeli: 2024 (221) Techno logist : CHIRAG Goznales(R ) Transc ribed Date/T nayeli: 2024 (221) Transc riptio nist: DR.WIL ALLEN Electr onic Signat ure Date/T nayeli: 2024 (2214) Printe d Date/T nayeli: 2024 (2331) BATCH NO: N/A PAGE 1 Signed Report CC'ed Logic: Orderi ng Provid er: SANDRA SOUSA Attend ing Provid er: SANDRA SOUSA Referr ing Provid er: SANDRA SOUSA Consul ting Provid er: MILLY Queen [facility] [address] , [place], [address], 08/24/2025 09:07:54 Result Notes None recorded. Problems Name Problem SNOMED Code Status Onset Date Resolution Date Notes Provider Name and Address Organization Details Recorded Time Small cell carcinoma of lung 934453083 Active 025 ZOHRA Mistry [facility] & [place] 5 08:29:03 Tobacco user 713831154 Active 025 ZOHRA Mistry [facility] & [place] 5 11:32:20 Problem Notes None recorded. Medical Equipment None Reported. Allergies Allergen ID Allergen Name Allergen Category Reaction Reaction Severity Criticality Documentation Date Start Date Code Code System Note Provider Name and Address Organization Details Recorded Time 044305 cefdinir medicatio n confusion mild high 07/23/2025 15363 RxNorm ZOHRA Mistry [facility] & [place] 5 09:11:23 100127 Boniva medicatio n other Not available high 07/23/2025 95117 4 RxNorm Cause s extre me fluct uatio n in BP ZOHRA Mistry [facility] & [place] 5 09:12:20 677212 Avelox medicatio n Not available Not available unabletoasse 07/23/2025 79139 6 RxNorm ZOHRA Mistry [facility] & [place] 5 09:12:59 Medications Name Sig Start Date [...] /min 22 /min 171/70 mm[Hg] Mia العلي KRISTIN [facility] & [place] 11:32:37 Social History Question Answer Notes LastModified by [employer] Details LastModified Time Tobacco Smoking Status Current Every Day Smoker Mia Dumont [facility], ZOHRA [facility] & [place] 07/23/2025 11:30:06 What Was The Date Of Your Most Recent Tobacco Screening? 07/23/2025 Information not available 07/23/2025 What Is Your Current Pack Years? 30ormorepac joses Information not available 07/23/2025 At What Age Did You Start Smoking Tobacco? 18 Information not available 07/23/2025 How Much Tobacco Do You Smoke? 1 PPW Hx Of 1 Pk/day Information not available 07/23/2025 Has Tobacco Cessation Counseling Been Provided? Yes Smoking Cessation Brochures From [facility] Provided Information not available 07/23/2025 [...] ICD10 Code Diagnosis IMO Codes Diagnosis Note [id number] Lars Mehta MD [place] [address] 8 07/23/2025 10:12:44 07/23/2025 11:53:43 Small cell carcinoma of lung 204216118 C34.12 0672961146 Tobacco user 866887537 Z 72.0 2088603 [id number] Lars Mehta MD [place] [address] 8 07/26/2025 09:56:22 07/26/2025 11:19:24 Small cell carcinoma of lung 932253389 C34.12 3569424809 [id number] Lars Mehta MD [place] [address] 8 08/06/2025 12:45:36 08/06/2025 14:33:26 Small cell carcinoma of lung 560819440 C34.12 8141841670 [id number] Lars Mehta MD [place] [address] 8 08/07/2025 12:49:55 08/07/2025 13:36:59 Small cell carcinoma of lung 703950608 C34.12 0598159887 [id number] Lars Mehta MD [place] [address] 8 08/08/2025 12:53:10 08/08/2025 16:24:49 Small cell carcinoma of lung 253158738 C34.12 0425264757 [id number] MD HANNA Lozano [facility] [address] [place] [address] 08/09/2025 12:46:59 08/09/2025 15:49:21 Small cell carcinoma of lung 569140751 C34.12 1980693490 [id number] MD [facility] [address] [place] [address] 08/13/2025 11:29:50 08/13/2025 12:13:47 Small cell carcinoma of lung 441303768 C34.12 0432985163 Health Concerns Section Related Observation LastModified by Organization Detai ls LastModified Time None Recorded Concern Status LastModified by Organization Details LastModified Time None Recorded Payers Encounter Date Sequence Insurance Name Policy Number Policy Baxter Covered Member ID Baxter Member ID Guarantor Name 08/13/2025 1 [place] Niharika Farias Celio [id number] 5 Niharika Narvaez 08/13/2025 2 [facility] Niharika Farias Celio [id number] Niharika Narvaez Notes Date Note Type Note [...] on Plavix and aspirin. Lars Mehta MD [address] [place] [address],[address], [place], [address], [facility] - [facility] [place] 08/13/2025 11:40:35 OBGyn Episode No OBEpisode recorded.
--- OUTSIDE RECORDS SUMMARY | 2025-09-14 21:12 | XMS_ITS | Continuity of Care Document ---
Author Organization [place] - [facility] Address [address] [place] [address] Care Team Providers Care Director Data Name Role Phone MAXIMILIANO CORCORAN Primary Care Provider YESENIAJARED Referring Provider LARS MEHTA Radiation Oncologist [phone] Assessment No assessment recorded. Plan of Treatment [...] T, skull base to mid-t high scan [facility] Name: NIHARIKA NARVAEZ LARA [address] [employer] 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 Non-di agnost ic CT findin gs: [...] nodes. PAGE 1 Signed Report (JEFF NUED) [facility] Name: NIHARIKA NARVAEZ FAY [address] [email or web address] Phys: Sandra dickinson [place] [address] : 1949 Age: 74 Sex: F Acct: [id number] Loc: Dhaval.PET PHONE #: [phone] Exam Date: 2024 Status : DEP CLI FAX #: Rad# [id number] Unit# [id number] Admit Date: 2024 EXAMS: CPT CODE: [id number] 457 PET W/CT SKULL- MID THIGH 49993 ABDOME N AND PELVIS : Wide range [...] MD PAGE 2 Signed Report (JEFF NUED) [facility] Name: NIHARIKA NARVAEZ FAY [employer] Phys: Sandra dickinson MD,Carrie [place] [address] : 1949 Age: 74 Sex: F Acct: [id number] Loc: G.PET PHONE #: Exam Date: 2024 Status : DEP CLI FAX #: Rad# [id number] 71 Unit# [id number] Admit Date: 2024 EXAMS: CPT CODE: [id number] 457 PET W/CT SKULL- MID THIGH 06159 CC: Peter Giordano M.D.; Lars dickinson MD Dictat ed Date/T nayeli: 2024 (1209) Techno logist : TIFFANY SHARP, LAB ASSOCIATE Transc ribed Date/T nayeli: 2024 (1209) Transc riptio nist: DR.IND DEL VALLE Electr onic Signat ure Date/T nayeli: 2024 (1209) Printe d Date/T nayeli: 2024 (1221) BATCH NO: N/A PAGE 3 Signed Report CC'ed Logic: Orderi ng Provid er: SANDRA SOUSA Attend ing Provid er: SANDRA SOUSA Referr ing Provid er: SANDRA SOUSA Consul ting Provid er: MILLY Queen [address] , [place], [address], 07/30/2025 13:12:15 07/30/20 25 07/30/2025 PET-C T, skull base to mid-t high scan [facility] Name: NIHARIKA NARVAEZ FAY [address] [employer] Phys: Sandra dickinson MD,[place] [address] : 1949 Age: 74 Sex: F Acct: [id number] Loc: G.PET PHONE #: Exam Date: 2024 Status : DEP CLI FAX #: Rad# [id number] Unit# [id number] Admit Date: 2024 Report Has Been Amende d EXAMS: CPT CODE: [id number] 457 PET W/CT SKULL- MID THIGH 54319 Addend um - 2024 SIGNED 2024 ADDEND UM: [id number] 457 PET/WC TSKMT ADDEND UM #1 Greate [...] NECK: PAGE 1 Signed Report (JEFF NUED) [facility] Name: NIHARIKA NARVAEZ FAY [address] [email or web address] Phys: Sandra dickinson 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 [...] CHRIS: PAGE 2 Signed Report (JEFF NUROLDAN) [facility] Name: NIHARIKA NARVAEZ FAY [email or web address] Phys: Sandra [facility] [place] [address] : 1949 Age: 74 Sex: F Acct: [id number] Loc: G.PET PHONE #: [phone] Exam Date: 2024 Status : DEP CLI FAX #: [phone] Rad# [id number] Unit# [id number] Admit Date: 2024 Report Has Been Amende d EXAMS: CPT CODE: [id number] 457 PET W/CT SKULL- MID THIGH 57342 Intens e uptake to left upper lobe [...] r PAGE 3 Signed Report (JEFF NUED) [facility] Name: NIHARIKA NARVAEZ FAY [address] [employer] [facility] Phys: Sandra dickinson MD,[facility] [place] [address] : 1949 Age: 74 Sex: F Acct: [id number] Loc: G.PET PHONE #: Exam Date: 2024 Status : DEP CLI FAX #: [phone] Rad# [id number] Unit# [id number] Admit Date: 2024 Report Has Been Amende d EXAMS: CPT CODE: [id number] 457 PET W/CT SKULL- MID THIGH 30310 medici ne bone scan Septem 2024 FINDIN [...] 146. 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 [...] (1209) Techno logist : TIA CHOUDHURY, BS, LAB ASSOCIATE Transc ribed Date/T nayeli: 2024 (1209) Transc riptio nist: DR.IND DEL VALLE Electr onic Signat ure Date/T nayeli: 2024 (1200) Printe d Date/T nayeli: 2024 (8881) BATCH NO: N/A PAGE 5 Signed Report CC'ed Logic: Orderi ng Provid er: SANDRA SOUSA Attend ing Provid er: SANDRA SOUSA Referr ing Provid er: SANDRA SOUSA Consul ting Provid er: MILLY Queen [address], [place], [address], 07/31/2025 08:11:40 08/23/2008/23/2025 XR, chest , 2 view [facility] Name: NIHARIKA NARVAEZ FAY [facility] [address] Phys: Sandra dickinson MD,Carrie [place] [address] : 1949 Age: 75 Sex: F Acct: [id number] Loc: G.RAD PHONE #: Exam Date: 2024 Status : REG CLI FAX #: Rad# [id number] Unit# [id number] Admit Date: 2024 EXAMS: CPT CODE: [id number] 698 CHEST 2 VIEWS 70039 CHEST RADIOG RAPHS, 2 VIEWS CLINIC AL [...] SOUSA Consul ting Provid er: MILLY Queen [facility] [address], [place], [address], 08/24/2025 09:07:54 Result Notes None recorded. Problems Name Problem SNOMED Code Status Onset Date Resolution Date Notes Provider Name and Address Organization Details Recorded Time Small cell carcinoma of lung 460139520 Active 025 ZOHRA Mistry [facility] & [place] 5 08:29:03 Tobacco user 360272384 Active 025 ZOHRA Msitry [facility] & [place] 5 11:32:20 Problem Notes None recorded. Medical Equipment None Reported. Allergies Allergen ID Allergen Name Allergen Category Reaction Reaction Severity Criticality Documentation Date Start Date Code Code System Note Provider Name and Address Organization Details Recorded Time 344735 cefdinir medicatio n confusion mild high 07/23/2025 49201 RxNorm ZOHRA Mistry [facility] & [place] 5 09:11:23 891976 Boniva medicatio n other Not available high 07/23/2025 30216 4 RxNorm Cause s extre me fluct uatio n in BP Mia sifuentes, ZOHRA FOSTER [facility] & [place] 5 09:12:20 523579 Avelox medicatio n Not available Not available unabletoasse 07/23/2025 12694 6 RxNorm Mia sifuentes, ZOHRA - LPNT [facility] & [place] 5 09:12:59 Medications Name Sig Start Date [...] /min 22 /min 171/70 mm[Hg] Mia العلي [facility] & [place] 11:32:37 Social History Question Answer Notes LastModified by Organizat ion Details LastModified Time Tobacco Smoking Status Current Every Day Smoker Mia Dumont [facility] & [place] 07/23/2025 11:30:06 What Was The Date Of [...] Been Provided? Yes Smoking Cessation Brochures From [facility] Provided Information not available 07/23/2025 On [...] ICD10 Code Diagnosis IMO Codes Diagnosis Note [id number] MD HANNA Lozano[address] [address] 07/23/2025 10:12:44 07/23/2025 11:53:43 Small cell carcinoma of lung 184993830 C34.12 4673743665 Tobacco user 092059218 Z 72.0 7894692 [id number] MD HANNA Lozano [address] [address] 07/26/2025 09:56:22 07/26/2025 11:19:24 Small cell carcinoma of lung 148871385 C34.12 1193736737 [id number] MD [facility] [address] [address] 08/06/2025 12:45:36 08/06/2025 14:33:26 Small cell carcinoma of lung 587267505 C34.12 1153177764 [id number] Lars Mehta MD [facility] [address] [place] [address] 08/07/2025 12:49:55 08/07/2025 13:36:59 Small cell carcinoma of lung 444455784 C34.12 4640462593 Health Concerns Section Related Observation LastModified by Organization Detai ls LastModified Time None Recorded Concern Status LastModified by Organization Details LastModified Time None Recorded Payers Encounter Date Sequence Insurance Name Policy Number Policy Baxter Covered Member ID Baxter Member ID Guarantor Name 08/07/2025 1 [place] Niharika Farias Celio [id number] 5 Niharika Narvaez 08/07/2025 2 [facility] Niharika Farias Celio [id number] Niharika Narvaez Notes Date Note Type Note [...] Plavix and aspirin. Lars Mehta MD [address], [place], [address], [facility] & [place] 08/13/2025 11:40:35 OBGyn Episode No OBEpisode recorded.
--- OUTSIDE RECORDS SUMMARY | 2025-09-14 21:12 | XMS_ITS | Encounter Summary ---
Author Organization [facility] Address [address] [place] [address] Care Team Providers Care Health And Social Care Teacher Name Role Phone Tariq Betancourt MD Primary Care Provider Encounter Details Date Type Department Care Team (Late st Contact Info) Description 06/12/2025 Telephone [facility] [address] [facility] [address] [place] [address] Mia Patiño APRN [address] [facility] [address] [place] [address] Social History Tobacco Use Types Packs/Day Years [...] Description 06/24/2026 10:30 AM EDT Office Visit [facility] [address] [facility] [address] [place] [address] José Miguel Abdi MD [address] [facility] [address] [place] [address] documented as of this encounter Visit Diagnoses Not on filedocumented in this encounter Care Teams Health And Social Care Teacher Relationship Specialty Start Date End Date Tariq Betancourt MD [address] [facility] [address] [place] [address] PCP - General Family Medicine 03/06/25 documented as of this encounter
--- OUTSIDE RECORDS SUMMARY | 2025-09-14 21:12 | XMS_ITS | Clinical Summary ---
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 Phone Rosemarie SINGH, Ezequiel Dubois Unavailable + [phone] JEWELL SINGH, MAGO Unavailable [phone] Reason for Visit and Chief Complaint [facility] Problems Includes: Problems addressed during this encounter and other active Problems All Visits Onset Date Resolved Date Provider Condition S tatus Joint Pain Hip Right 08/02/2025 Young Rajan Active Last Documented On 5 1:44PM ; [facility] Joint Pain Hip Bilateral 03/17/2018 Ezequiel Houston MD Active Last Documented On 8 3:22PM ; [facility] Plan of Treatment No Plan of Treatment Recorded Assessments Includes: Assessments from this encounter No Assessments Recorded Medical Equipment - Implanted Devices Includes: Current Devices No Medical Equipment Recorded Medications Includes: Medications discussed during this encounter and other current Medications Discontinued / Stopped on this date Ezequiel Houston MD on 05/01/2024 Aspirin 81 81 MG Oral Tablet Chewable Provider: Ezequiel ruby MD Diagnosis: Last Documented On 4 8:26AM By Hung Houston ; [facility] Current Medications (continue as prescribed) Aspirin 81 81 MG Oral Tablet Chewable 05/02/2024 Provider: Ezequiel ruby MD Diagnosis: once a day Last Documented On 4 8:31AM By Hung Houston ; [facility] traMADol HCl 50 MG Oral Tablet 05/01/2024 Provider: Ezequiel Houston MD Diagnosis: 1-2 po q 4-6h Last Documented On 4 2:09PM By Hung Houston ; [facility] oxyCODONE HCl 5 MG Oral Tablet 05/01/2024 Provider: Ezequiel Houston MD Diagnosis: 1-2 po q 4-6h Last Documented On 4 2:09PM By Hung Houston ; [facility] Tranexamic Acid 650 MG Oral Tablet 05/01/2024 Provid er: Ezequiel Houston MD Diagnosis: as directed TAKE 3 TABLETS O NE TIME A DAY BEGINNING THE EVENING OF SURGERY FOR FOUR DAYS Last Documented On 4 2:09PM By Hung Houston ; [facility] Ondansetron HCl 4 MG Oral Tablet 05/01/2024 Provider : Ezequiel Houston MD Diagnosis: [id number] Last Documented On 4 2:09PM By Hung Houston ; [facility] Meloxicam 15 MG Oral Tablet 05/01/2024 Provider: Ezequiel Houston MD Diagnosis: once a day Last Documented On 4 2:09PM By Hung Houston ; [facility] Colace 100 MG Oral Capsule 05/01/2024 Provider: Danna Houston MD Diagnosis: 1-2 tabs daily Last Documented On 4 2:09PM By Hung Houston ; [facility] Cefadroxil 500 MG Oral Capsule 05/01/2024 Provider: Ezequiel Houston MD Diagnosis: twice a day Last Documented On 4 2:09PM By Hung Houston ; [facility] Acetaminophen 500 MG Oral Tablet 05/01/2024 Provider : Ezequiel Houston MD Diagnosis: 2 three times a day Last Documented On 4 2:09PM By Hung Houston ; [facility] Albuterol Sulfate HFA 108 (9 0 Base) MCG/ACT Inhalation Aerosol Solution 03/14/2024 Provider: Diagnosis: Last Documented On 4 7:33AM By Abdirashid Mayfield ; [facility] DULoxetine HCl 30 MG Oral Capsule Delayed Release Spri nkle 03/14/2024 Provider: Diagnosis: Last Documented On 4 7:34AM By Abdirashid Mayfield ; [facility] Metoprolol Succinate ER 100 MG Oral Tablet Extended Release 24 Hour 03/14/2024 Provider: Diagnosis: Last Documented On 4 7:35AM By Abdirashid Mayfield ; [facility] Benazepril HCl 40 MG Oral Tablet 03/03/2024 Provider : MAGO CORCORAN MD Diagnosis: Last Documented On 4 9:22AM By Paula Lewis ; [facility] Fluticasone Propionate 50 MC G/ACT Nasal Suspension 03/02/2024 Provider: MAGO CORCORAN MD Diagnosis: Last Documented On 4 9:22AM By Paula Lewis ; [facility] Atorvastatin Calcium 40 MG Oral Tablet 03/02/2024 Pr ovider: MAGO CORCORAN MD Diagnosis: Last Documented On 4 9:22AM By Paula Lewis ; [facility] amLODIPine Besylate 10 MG Oral Tablet 03/02/2024 Pro vider: MAGO CORCORAN MD Diagnosis: Last Documented On 4 9:22AM By Paula Lewis ; [facility] Alendronate Sodium 70 MG Oral Tablet 03/02/2024 Prov ider: MAGO CORCORAN MD Diagnosis: Last Documented On 4 9:22AM By Paula Lewis ; [facility] Furosemide 40 MG Oral Tablet 03/02/2024 Provider: MAGO CORCORAN MD Diagnosis: Last Documented On 4 9:22AM By Paula Lewis ; [facility] Clopidogrel Bisulfate 75 MG Oral Tablet 03/02/2024 P rovider: MAGO CORCORAN MD Diagnosis: Last Documented On 4 9:22AM By Paula Lewis ; [facility] Medications Administered Includes: Administered Medications from [...] Active Last Documented On 5 1:44PM ; [facility], [facility] Encounters Encounter Provider Location Date Check-In Time Check-Out Time Diagnosis [facility] Ezequiel Houston MD Surgery 05/02/20 24 1:45PM 11:59PM Insurance Includes: Active Insurance Policies Plan Name Member ID Group # Subscriber Relationship Effect kar Dates 1 - Medicare Part B [facility] [id number] Antonia Pickens Self 2 - [employer] [id number] Antonia Pickens Self 11/08/2017 - Unknown Clinical Notes Includes: Clinical Notes from this encounter No Clinical Notes Recorded
--- OUTSIDE RECORDS SUMMARY | 2025-09-14 21:12 | XMS_ITS | Clinical Summary ---
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 Phone Rosemarie SINGH, Ezequiel Dubois Unavailable [phone] JEWELL SINGH, MAGO Unavailable [phone] Reason for Visit and Chief Complaint The Chief Complaint is: Left DEANNA Problems Includes: Problems addressed during this encounter and other active Problems All Visits Onset Date Resolved Date Provider Condition S tatus Joint Pain Hip Right 08/02/2025 Young Rajan Active Last Documented On 5 1:44PM ; [facility] Joint Pain Hip Bilateral 03/17/2018 Ezequiel Houston MD Active Last Documented On 8 3:22PM ; [facility] Plan of Treatment - Patient screened for future fall risk: documentation of any fall with injury in past year - Last Documented On 08/01/2024 2:37PM ; [facility] Fall Risk Assessment: This patient has been identified as a fall risk. Balance/gait along with postural blood pressure, vision and home fall hazards have been assessed. Medications have been reviewed, and recommendations made with regard to contributing factors for future falls. Plan of care: Consideration of vitamin D supplementation along with balance and strength training with consideration for formal physical therapy has been discussed with the patient. - Last Documented On 08/01/2024 2:37PM ; [facility] Patient is now almost 12 weeks postop right total hip arthroplasty. Doing well no complaints. Continue with physical therapy and home exercise program. Cane for stability. Follow up in the office in 1 year with repeat x-rays - Last Documented On 08/01/2024 2:37PM ; [facility] Instructions to patient Instructions for patient to see pcp for bp Last Documented On 4 2:02PM ; [facility] Intervention and counseling 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 of tobacco use Last Documented On 4 2:02PM ; [facility] Assessments Includes: Assessments from this encounter Findings Twelve weeks postop right anterior total hip - Last Documented On 08/01/2024 2:37PM ; [facility] Instructions Includes: Instructions from this encounter Instructions to patient Instructions for patient to see pcp for bp Last Documented On 4 2:02PM ; [facility] Intervention and counseling 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 of tobacco use Last Documented On 4 2:02PM ; [facility] Medical Equipment - Implanted Devices Includes: Current Devices No Medical Equipment Recorded Medications Includes: Medications discussed during this encounter and other current Medications Current Medications (continue as prescribed) Aspirin 81 81 MG Oral Tablet Chewable 05/02/2024 Provider: Ezequiel ruby MD Diagnosis: once a day Last Documented On 4 8:31AM By Hung Houston ; [facility] traMADol HCl 50 MG Oral Tablet 05/01/2024 Provider: Ezequiel Houston MD Diagnosis: 1-2 po q 4-6h Last Documented On 4 2:09PM By Hung Houston ; [facility] oxyCODONE HCl 5 MG Oral Tablet 05/01/2024 Provider: Ezequiel Houston MD Diagnosis: 1-2 po q 4-6h Last Documented On 4 2:09PM By Hung Houston ; [facility] Tranexamic Acid 650 MG Oral Tablet 05/01/2024 Provid er: Ezequiel Houston MD Diagnosis: as directed TAKE 3 TABLETS O NE TIME A DAY BEGINNING THE EVENING OF SURGERY FOR FOUR DAYS Last Documented On 4 2:09PM By Hung Houston ; [facility] Ondansetron HCl 4 MG Oral Tablet 05/01/2024 Provider : Ezequiel Houston MD Diagnosis: [id number] Last Documented On 4 2:09PM By Hung Houston ; [facility] Meloxicam 15 MG Oral Tablet 05/01/2024 Provider: Ezequiel Houston MD Diagnosis: once a day Last Documented On 4 2:09PM By Hung Houston ; [facility] Colace 100 MG Oral Capsule 05/01/2024 Provider: Danna Houston MD Diagnosis: 1-2 tabs daily Last Documented On 4 2:09PM By Hung Houston ; [facility] Cefadroxil 500 MG Oral Capsule 05/01/2024 Provider: Ezequiel Houston MD Diagnosis: twice a day Last Documented On 4 2:09PM By Hung Houston ; [facility] Acetaminophen 500 MG Oral Tablet 05/01/2024 Provider : Ezequiel Houston MD Diagnosis: 2 three times a day Last Documented On 4 2:09PM By Hung Houston ; [facility], [facility] Albuterol Sulfate HFA 108 (9 0 Base) MCG/ACT Inhalation Aerosol Solution 03/14/2024 Provider: Diagnosis: Last Documented On 4 7:33AM By Abdirashid Mayfield ; [facility], [facility] DULoxetine HCl 30 MG Oral Capsule Delayed Release Spri nkle 03/14/2024 Provider: Diagnosis: Last Documented On 4 7:34AM By Abdirashid Mayfield ; [facility], [facility] Metoprolol Succinate ER 100 MG Oral Tablet Extended Release 24 Hour 03/14/2024 Provider: Diagnosis: Last Documented On 4 7:35AM By Abdirashid Mayfield ; [facility], [facility] Benazepril HCl 40 MG Oral Tablet 03/03/2024 Provider : MAGO CORCORAN MD Diagnosis: Last Documented On 4 9:22AM By Paula Lewis ; [facility], [facility] Fluticasone Propionate 50 MC G/ACT Nasal Suspension 03/02/2024 Provider: MAGO CORCORAN MD Diagnosis: Last Documented On 4 9:22AM By Paula Lewis ; [facility], [facility] Atorvastatin Calcium 40 MG Oral Tablet 03/02/2024 Pr ovider: MAGO CORCORAN MD Diagnosis: Last Documented On 4 9:22AM By Paula Lewis ; [facility] amLODIPine Besylate 10 MG Oral Tablet 03/02/2024 Pro vider: MAGO CORCORAN MD Diagnosis: Last Documented On 4 9:22AM By Paula Lewis ; [facility] Alendronate Sodium 70 MG Oral Tablet 03/02/2024 Prov ider: MAGO CORCORAN MD Diagnosis: Last Documented On 4 9:22AM By Paula Lewis ; [facility] Furosemide 40 MG Oral Tablet 03/02/2024 Provider: MAGO CORCORAN MD Diagnosis: Last Documented On 4 9:22AM By Paula Lewis ; [facility] Clopidogrel Bisulfate 75 MG Oral Tablet 03/02/2024 P rovider: MAGO CORCORAN MD Diagnosis: Last Documented On 4 9:22AM By Paula Lewis ; [facility], [facility] Past Medications on file TraMADol HCl 50MG Oral Tablet 03/22/2018 - 03/27/2018 Provider: Ezequiel ravi MD Diagnosis: 2 Tablets every 6 hours PRN pain for surgery DO NOT FILL TILL 03-28-18 Last Documented On 8 10:34AM By Bella Deleon ; [facility], [facility] OxyCODONE HCl 5MG Oral Tablet 03/22/2018 - 03/24/2018 Provider: Ezequiel ravi MD Diagnosis: 1-2 pills every 4-6 hours [place] N pain for surgery DO NOT FILL TILL 18 Last Documented On 8 10:33AM By Bella Deleon ; [facility], [facility] Colace 100MG Oral Capsule 03/22/2018 - 06/20/2018 Provider: Ezequiel ravi MD Diagnosis: 1-2 tabs daily for surgery * *DO NOT FILL TILL 18 Last Documented On 8 10:40AM By Bella Deleon ; [facility] Acetaminophen 500MG Oral Tablet 03/22/2018 - 03/30/2018 Provider: Ezequiel Houston MD Diagnosis: 2 three times a day for surg tiffanie DO NOT FILL TILL 03-28-18 Last Documented On 8 10:40AM By Bella Deleon ; [facility] Mupirocin 2% External Ointment 03/21/2018 - 03/26/2018 Provider: Ezequiel ravi MD Diagnosis: Apply to nostrils 3 time a d ay 5 days prior to surgery. Last Documented On 8 10:49AM By Jaja Rutledge ; [facility], [facility] Medications Administered Includes: Administered Medications from this encounter No Administered Medications Recorded Vital Signs Includes: Vital Signs from this encounter Vital Name 08/01/2024 02:03P Height (in) 62 Weight (lb) 122 Body Mass Index 22.3 Body Surface Area 1.5 Note: ab Last Documented: On 08/01/2024 2:03PM ; [facility], [facility] Results Includes: Results discussed during this encounter No Results Recorded For Specified Dates History of Present Illness Includes: History of Present Illness from this encounter APRIL Pickens is a 74 year old female. - Allergy list reviewed - Problem list reviewed - Medication list reviewed - - Review of medications documented Social History Description Last Updated No recent change in diet 08/01/2024 Last Documented On 4 2:37PM ; [facility], [facility] Not using drugs 08/01/2024 Last Documented On 4 2:37PM ; [facility] Alcohol use 03/07/2024 Last Documented On 4 2:02PM ; [facility] Caffeine use 03/07/2024 Last Documented On 4 2:02PM ; [facility] Not exercising regularly 03/07/2024 Last Documented On 4 2:02PM ; [facility] Yes, current smoker. 03/07/2024 Last Documented On 4 2:02PM ; [facility] Tobacco use 03/07/2024 Last Documented On 4 2:02PM ; [facility] Smoking status Current some day smoker 0 03/17/2018 Last Documented On 4 2:02PM ; [facility] Current smoker 03/17/2018 Last Documented On 4 2:02PM ; [facility] Procedures and Surgical History Includes: Procedures from this encounter Procedures Code Diagnosis Performing Provider Service L ocation Service Date history of orthopedic options: physical therapy Last Documented On 4 2:02PM ; [facility] 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 Last Documented On 4 2:02PM ; [facility] use of tobacco assessment performed 1000F Last Documented On 4 2:02PM ; [facility] patient screened for future fall risk: documentation of any fall with injury in past year 1100F Last Documented On 4 2:02PM ; [facility] review of medications documented 1160F Last Documented On 4 2:02PM ; [facility] Clinical summary provided to patient Last Documented On 4 2:02PM ; [facility] 290[facility] Last Documented On 4 2:02PM ; [facility] an MRI was performed 54321 Last Documented On 4 2:02PM ; [facility] Surgical History Last Updated History of Previous Fractures 03/07/2024 Last Documented On 4 2:02PM ; [facility] History of total hip replacement 024 Last Documented On 4 2:02PM ; [facility] History of back surgery 03/17/2018 Last Documented On 4 2:02PM ; [facility] Medical History Includes: Medical History addressed during this encounter Description Last Updated History of arthritis 03/07/2024 Last Documented On 4 2:02PM ; [facility] History of History of Emphysema 03/07/20 24 Last Documented On 4 2:02PM ; [facility] History of Sleep Apnea 03/07/2024 Last Documented On 4 2:02PM ; [facility] Arthritic joint problems 03/17/2018 Last Documented On 4 2:02PM ; [facility] Family History Includes: Family History addressed during this encounter Description Last Updated Diabetes mellitus 03/07/2024 Last Documented On 4 2:02PM ; [facility], [facility] Family history of heart disease 03/07/20 24 Last Documented On 4 2:02PM ; [facility], [facility] Family history of osteoporosis 4 Last Documented On 4 2:02PM ; [facility], [facility] Fraternal history of diabetes mellitus 0 03/17/2018 Last Documented On 4 2:02PM ; [facility], [facility] Maternal history of family history of he art disease 03/17/2018 Last Documented On 4 2:02PM ; [facility], [facility] Maternal history of osteoporosis 018 Last Documented On 4 2:02PM ; [facility], [facility] Paternal aunt's history of rheumatoid ar thritis 03/17/2018 Last Documented On 4 2:02PM ; [facility], [facility] Review of Systems Includes: Review of Systems from this encounter Systemic: Not feeling tired. Recent weight loss. No recent weight gain. No edema. Head: No headache and no sinus pain. Eyes: No vision problems and no glaucomatous visual field defect. No Cataracts. Glasses/Contacts. No Glaucoma. Otolaryngeal: No hearing loss and no tinnitus. No nasal symptoms. Cardiovascular: No chest pain or discomfort, no palpitations, and no Hypertension. High Cholesterol. Pulmonary: No daytime asthma symptoms and no cough. Chronic cough. No wheezing. Gastrointestinal: No heartburn and no abdominal pain. No Indigestion, no Peptic Ulcer, no GI Stomach Bleed, no Ulcers, and no Acid Reflux. Endocrine: No hot flashes, no muscle weakness, no Diabetes, no Hypothyroid, and no Hyperthyroid. Hematologic: Easy bleeding. No tendency for easy bruising and no Anemia. Musculoskeletal: Arthritis and lower back pain. No soft tissue swelling. Pain localized to one or more joints. Neurological: No dizziness, no convulsions, and no numbness. Psychological: No anxiety, no emotional lability, no depression, and no insomnia. Not crying for no reason. Skin: No dry skin. No Ulcers, no Scars, no rash, and no ulcers. Allergic and Immunologic: Complaint of seasonal allergic reaction. Mental Status Includes: Mental Status from this encounter Description No anxiety Functional Status Includes: Functional Status from this encounter No Functional Status Recorded Physical Exam Includes: Physical Exam from this encounter Allergies Includes: Active Allergies Substance Type Reaction Onset Date Resolved Date Statu s Ibuprofen Allergy 03/17/2018 Active Last Documented On 5 1:44PM ; [facility], [facility] Encounters Encounter Provider Location Date Check-In Time Check-Out Time Diagnosis Follow Up Raad Olivares PA-C [facility] 4 1:52PM 2:37PM Insurance Includes: Active Insurance Policies Plan Name Member ID Group # Subscriber Relationship Effect kar Dates 1 - Medicare Part B of [place] [id number] Antonia Pickens Self 2 - [employer] [id number] Antonia Pickens Self 11/08/2017 - Unknown Clinical Notes Includes: Clinical Notes from this encounter * Progress note Date Encounter Last Documented by 08/01/2024 Follow Up Last documented on 08/01/2024; 2:37 PM, Raad Olivares PA-C; [facility], [facility] Active Problems & Conditions - Joint Pain in Both Hips - Joint Pain in the Right Hip Chief Complaint The Chief Complaint is: Left DEANNA. Referred Here Referred by. History of Present Illness Antonia Pickens is a 74 year old female. - Allergy list reviewed - Problem list reviewed - Medication list reviewed - - Review of medications documented Current Medication - Acetaminophen 500 MG Oral Tablet 2 three times a day, 30 days, 0 refills - Albuterol Sulfate HFA 108 (90 Base) MCG/ACT Inhalation Aerosol Solution take as directed 0 days, 0 refills - Alendronate Sodium 70 MG Oral Tablet 84 days, 0 refills - amLODIPine Besylate 10 MG Oral Tablet 90 days, 0 refills - Aspirin 81 81 MG Oral Tablet Chewable once a day, 84 days, 0 refills - Atorvastatin Calcium 40 MG Oral Tablet 90 days, 0 refills - Benazepril HCl 40 MG Oral Tablet 90 days, 0 refills - Cefadroxil 500 MG Oral Capsule twice a day, 3 days, 0 refills - Clopidogrel Bisulfate 75 MG Oral Tablet 90 days, 0 refills - Colace 100 MG Oral Capsule 1-2 tabs daily, 30 days, 2 refills - DULoxetine HCl 30 MG Oral Capsule Delayed Release Sprinkle take as directed 0 days, 0 refills - Fluticasone Propionate 50 MCG/ACT Nasal Suspension 30 days, 0 refills - Furosemide 40 MG Oral Tablet 90 days, 0 refills - Meloxicam 15 MG Oral Tablet once a day, 14 days, 0 refills - Metoprolol Succinate ER 100 MG Oral Tablet Extended Release 24 Hour take as directed 0 days, 0 refills - Ondansetron HCl 4 MG Oral Tablet 3egn5-4g, 5 days, 0 refills - oxyCODONE HCl 5 MG Oral Tablet 1-2 po q 4-6h, 5 days, 0 refills - traMADol HCl 50 MG Oral Tablet 1-2 po q 4-6h, 5 days, 0 refills - Tranexamic Acid 650 MG Oral Tablet as directed TAKE 3 TABLETS ONE TIME A DAY BEGINNING THE EVENING OF SURGERY FOR FOUR DAYS, 4 days, 0 refills Past Medical/Surgical History Reported: Medical: Arthritic joint problems. Diagnoses: Sleep Apnea History of Emphysema. Arthritis Surgical: - Previous Fractures - Back surgery - Total hip replacement Previous Therapy - History of orthopedic options: physical therapy Social History Yes, current smoker. Current diet: No recent change in diet. Caffeine use: Caffeine use. Tobacco use: Current smoker and smoking status: Current some day smoker. Alcohol: Alcohol use. Drug Use: Not using drugs. Habits: Not exercising regularly. Allergies - Ibuprofen Family History Heart disease Diabetes mellitus Osteoporosis Maternal: Heart disease Osteoporosis Fraternal: Diabetes mellitus Paternal aunt's: Rheumatoid arthritis Review Of Systems Systemic: Not feeling tired. Recent weight loss. No recent weight gain. No edema. Head: No headache and no sinus pain. Eyes: No vision problems and no glaucomatous visual field defect. No Cataracts. Glasses/Contacts. No Glaucoma. Otolaryngeal: No hearing loss and no tinnitus. No nasal symptoms. Cardiovascular: No chest pain or discomfort, no palpitations, and no Hypertension. High Cholesterol. Pulmonary: No daytime asthma symptoms and no cough. Chronic cough. No wheezing. Gastrointestinal: No heartburn and no abdominal pain. No Indigestion, no Peptic Ulcer, no GI Stomach Bleed, no Ulcers, and no Acid Reflux. Endocrine: No hot flashes, no muscle weakness, no Diabetes, no Hypothyroid, and no Hyperthyroid. Hematologic: Easy bleeding. No tendency for easy bruising and no Anemia. Musculoskeletal: Arthritis and lower back pain. No soft tissue swelling. Pain localized to one or more joints. Neurological: No dizziness, no convulsions, and no numbness. Psychological: No anxiety, no emotional lability, no depression, and no insomnia. Not crying for no reason. Skin: No dry skin. No Ulcers, no Scars, no rash, and no ulcers. Allergic and Immunologic: Complaint of seasonal allergic reaction. Physical Findings - Vitals taken 08/01/2024 02:03 pm ab Height 62 in Weight 122 lbs Body Mass Index 22.3 kg/m2 Body Surface Area 1.5 m2 Incision well healed without erythema/purulence/drainage Mild residual hip swelling Hip ROM [Normal], without stiffness or laxity LLD [0] Strength 5/5 TA/Gastroc/Quad Sensation intact to light touch throughout Palpable pulses DP/PT Assessment Twelve weeks postop right anterior total hip Previous Tests Imaging: X-Ray: An X-ray was performed. MRI Scan: An MRI was performed. Therapy - Intervention and counseling 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 of tobacco use. - Clinical summary provided to patient. Counseling/Education - Tobacco non-user - Use of tobacco assessment performed - Instructions for patient to see pcp for bp Plan - Patient screened for future fall risk: documentation of any fall with injury in past year Fall Risk Assessment: This patient has been identified as a fall risk. Balance/gait along with postural blood pressure, vision and home fall hazards have been assessed. Medications have been reviewed, and recommendations made with regard to contributing factors for future falls. Plan of care: Consideration of vitamin D supplementation along with balance and strength training with consideration for formal physical therapy has been discussed with the patient. Patient is now almost 12 weeks postop right total hip arthroplasty. Doing well no complaints. Continue with physical therapy and home exercise program. Cane for stability. Follow up in the office in 1 year with repeat x-rays Notes This dictation was done with voice recognition software and may contain errors and omissions. Practice Management Use of tobacco assessment performed and patient screened for future fall risk documentation of any fall with injury in past year Review of medications documented. Care Team - MAGO CORCORAN MD - [employer] [facility]
--- OUTSIDE RECORDS SUMMARY | 2025-09-14 21:12 | XMS_ITS | Clinical Summary ---
Author Organization [facility] Address [address] [place] [address] Phone Care Team Providers Care Adult Nurse Practitioner Name Role Phone Rosemarie SINGH, Ezequiel Dubois Unavailable [phone] JEWELL SINGH, MAGO Unavailable [phone] Reason for Visit and Chief Complaint The Chief Complaint is: Left DEANNA Problems Includes: Problems addressed during this encounter and other active Problems All Visits Onset Date Resolved Date Provider Condition S tatus Joint Pain Hip Right 08/02/2025 Young Rajan Active Last Documented On 5 1:44PM ; [facility] Joint Pain Hip Bilateral 03/17/2018 Ezequiel Houston MD Active Last Documented On 8 3:22PM ; [facility] Plan of Treatment Fall Risk Assessment: This patient has been [...] with the patient. - Last Documented On 08/02/2025 2:10PM ; [facility] Patient is very pleased with the hip surgery, reports no issues today. We will plan for follow up 5 year postop intervals - Last Documented On 08/02/2025 2:10PM ; [facility] Pending Tests Order Diagnosis Results Due Ordering Polly dwyer Lab Hemoglobin A1c 04/19/24 Young F Hen son PA-C Last Documented On 4 8:14AM ; [facility] Lab CBC With Differential/Platelet 04/19 Young Farias Rashaad PA-C Last Documented On 4 8:14AM ; [facility] Lab Prothrombin Time (PT) 04/19/24 Ann-Marie Farias Rashaad PA-C Last Documented On 4 8:14AM ; [facility] Lab PTT, Activated 04/19/24 Young Farias Winston son PA-C Last Documented On 4 8:14AM ; [facility] Lab Prealbumin 04/19/24 Young Farias Rashaad PA-C Last Documented On 4 8:14AM ; [facility] Lab Fructosamine 04/19/24 Young Farias Maura jaime PA-C Last Documented On 4 8:14AM ; [facility] Lab MRSA by DA 04/19/24 Young Dinora Rashaad PA-C Last Documented On 4 8:14AM ; [facility] Lab Comp. Metabolic Panel (14) 04/19/24 Young Dinora Rashaad PA-C Last Documented On 4 8:14AM ; [facility] Instructions to patient Instructions for patient to see pcp for bp Last Documented On 5 1:44PM ; [facility] Intervention and counseling 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 of tobacco use Last Documented On 5 1:44PM ; [facility] Assessments Includes: Assessments from this encounter Findings 1 year status post left DEANNA - Last Documented On 08/02/2025 2:10PM ; [facility] Instructions Includes: Instructions from this encounter Instructions to patient Instructions for patient to see pcp for bp Last Documented On 5 1:44PM ; [facility] Intervention and counseling 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 of tobacco use Last Documented On 5 1:44PM ; [facility] Medical Equipment - Implanted Devices Includes: Current Devices No Medical Equipment Recorded Medications Includes: Medications discussed during this encounter and other current Medications Current Medications (continue as prescribed) Aspirin 81 81 MG Oral Tablet Chewable 05/02/2024 Provider: Ezequiel ruby MD Diagnosis: once a day Last Documented On 4 8:31AM By Hung Houston ; [facility] traMADol HCl 50 MG Oral Tablet 05/01/2024 Provider: Ezequiel Houston MD Diagnosis: 1-2 po q 4-6h Last Documented On 4 2:09PM By Hung Houston ; [facility] oxyCODONE HCl 5 MG Oral Tablet 05/01/2024 Provider: Ezequiel Houston MD Diagnosis: 1-2 po q 4-6h Last Documented On 4 2:09PM By Hung Houston ; [facility] Tranexamic Acid 650 MG Oral Tablet 05/01/2024 Provid er: Ezequiel Houston MD Diagnosis: as directed TAKE 3 TABLETS O NE TIME A DAY BEGINNING THE EVENING OF SURGERY FOR FOUR DAYS Last Documented On 4 2:09PM By Hung Houston ; [facility] Ondansetron HCl 4 MG Oral Tablet 05/01/2024 Provider : Ezequiel Houston MD Diagnosis: [id number] Last Documented On 4 2:09PM By Hung Houston ; [facility] Meloxicam 15 MG Oral Tablet 05/01/2024 Provider: Ezequiel Houston MD Diagnosis: once a day Last Documented On 4 2:09PM By Hung Houston ; [facility] Colace 100 MG Oral Capsule 05/01/2024 Provider: Danna Houston MD Diagnosis: 1-2 tabs daily Last Documented On 4 2:09PM By Hung Houston ; [facility] Cefadroxil 500 MG Oral Capsule 05/01/2024 Provider: Ezequiel Houston MD Diagnosis: twice a day Last Documented On 4 2:09PM By Hung Houston ; [facility] Acetaminophen 500 MG Oral Tablet 05/01/2024 Provider : Ezequiel Houston MD Diagnosis: 2 three times a day Last Documented On 4 2:09PM By Hung Houston ; [facility] Albuterol Sulfate HFA 108 (9 0 Base) MCG/ACT Inhalation Aerosol Solution 03/14/2024 Provider: Diagnosis: Last Documented On 4 7:33AM By Abdirashid Mayfield ; [facility] DULoxetine HCl 30 MG Oral Capsule Delayed Release Spri nkle 03/14/2024 Provider: Diagnosis: Last Documented On 4 7:34AM By Abdirashid Mayfield ; [facility] Metoprolol Succinate ER 100 MG Oral Tablet Extended Release 24 Hour 03/14/2024 Provider: Diagnosis: Last Documented On 4 7:35AM By Abdirashid Mayfield ; [facility] Benazepril HCl 40 MG Oral Tablet 03/03/2024 Provider : MAGO CORCORAN MD Diagnosis: Last Documented On 4 9:22AM By Paula Lewis ; [facility] Fluticasone Propionate 50 MC G/ACT Nasal Suspension 03/02/2024 Provider: MAGO CORCORAN MD Diagnosis: Last Documented On 4 9:22AM By Paula Lewis ; [facility] Atorvastatin Calcium 40 MG Oral Tablet 03/02/2024 Pr ovider: MAGO CORCORAN MD Diagnosis: Last Documented On 4 9:22AM By Paula Lewis ; [facility] amLODIPine Besylate 10 MG Oral Tablet 03/02/2024 Pro vider: MAGO CORCORAN MD Diagnosis: Last Documented On 4 9:22AM By Paula Lewis ; [facility] Alendronate Sodium 70 MG Oral Tablet 03/02/2024 Prov ider: MAGO CORCORAN MD Diagnosis: Last Documented On 4 9:22AM By Paula Lewis ; [facility] Furosemide 40 MG Oral Tablet 03/02/2024 Provider: MAGO CORCORAN MD Diagnosis: Last Documented On 4 9:22AM By Paula Lewis ; [facility] Clopidogrel Bisulfate 75 MG Oral Tablet 03/02/2024 P rovider: MAGO CORCORAN MD Diagnosis: Last Documented On 4 9:22AM By Paula Lewis ; [facility] Past Medications on file TraMADol HCl 50MG Oral Tablet 03/22/2018 - 03/27/2018 Provider: Ezequiel ravi MD Diagnosis: 2 Tablets every 6 hours PRN pain for surgery DO NOT FILL TILL 18 Last Documented On 8 10:34AM By Bella Deleon ; [facility] OxyCODONE HCl 5MG Oral Tablet 03/22/2018 - 03/24/2018 Provider: Ezequiel ravi MD Diagnosis: 1-2 pills every 4-6 hours NM N pain for surgery DO NOT FILL TILL 18 Last Documented On 8 10:33AM By Bella Deleon ; [facility] Colace 100MG Oral Capsule 03/22/2018 - 06/20/2018 Provider: Ezequiel ravi MD Diagnosis: 1-2 tabs daily for surgery * *DO NOT FILL TILL 03-28-18 Last Documented On 8 10:40AM By Bella Deleon ; [facility] Acetaminophen 500MG Oral Tablet 03/22/2018 - 03/30/2018 Provider: Ezequiel Houston MD Diagnosis: 2 three times a day for surg tiffanie DO NOT FILL TILL 03-28-18 Last Documented On 8 10:40AM By Bella Deleon ; [facility] Mupirocin 2% External Ointment 03/21/2018 - 03/26/2018 Provider: Ezequiel ravi MD Diagnosis: Apply to nostrils 3 time a d ay 5 days prior to surgery. Last Documented On 8 10:49AM By Jaja Rutledge ; [facility] Medications Administered Includes: Administered Medications from this encounter No Administered Medications Recorded Vital Signs Includes: Vital Signs from this encounter Vital Name 08/02/2025 01:44P Height (in) 62 Weight (lb) 115 Body Mass Index 21 Body Surface Area 1.5 Note: ab Last Documented: On 08/02/2025 1:59PM ; [facility] Results Includes: Results discussed during this encounter No Results Recorded For Specified Dates History of Present Illness Includes: History of Present Illness from this encounter APRIL Pcikens is a 75 year old female. - Allergy list reviewed - Problem list reviewed - Medication list reviewed - - Review of medications documented Social History Description Last Updated No recent change in diet 08/02/2025 Last Documented On 2:10PM ; [facility] Not using drugs 08/02/2025 Last Documented On 2:10PM ; [facility] Alcohol use 03/07/2024 Last Documented On 1:44PM ; [facility] Caffeine use 03/07/2024 Last Documented On 1:44PM ; [facility] Not exercising regularly 03/07/2024 Last Documented On 1:44PM ; [facility] Yes, current smoker. 03/07/2024 Last Documented On 1:44PM ; [facility] Tobacco use 03/07/2024 Last Documented On 1:44PM ; [facility] Smoking status Current some day smoker 0 03/17/2018 Last Documented On 1:44PM ; [facility] Current smoker 03/17/2018 Last Documented On 1:44PM ; [facility] Procedures and Surgical History Includes: Procedures from this encounter Procedures Code Diagnosis Performing Provider Service Location Service Date PELVIS w/ 2-3 VIEW HIP (RIGHT) 90663 Unilateral primary osteoarthritis, right hip, Presence of right artificial hip joint Young Neil PA-C [facility] 08/02/2025 Last Documented On 2:46PM ; [facility] history of orthopedic options: physical therapy Last Documented On 1:44PM ; [facility] intervention and counseling 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 4000F Last Documented On 1:44PM ; [facility] use of tobacco assessment performed 1000F Last Documented On 1:44PM ; [facility] patient screened for future fall risk: documentation of any fall with injury in past year 1100F Last Documented On 1:44PM ; [facility] review of medications documented 1160F Last Documented On 1:44PM ; [facility] Clinical summary provided to patient Last Documented On 1:44PM ; [facility] an X-ray was performed 58480 Last Documented On 5 1:44PM ; [facility] an MRI was performed 05451 Last Documented On 1:44PM ; [facility] Surgical History Last Updated History of Previous Fractures 03/07/2024 Last Documented On 5 1:44PM ; [facility] History of total hip replacement 024 Last Documented On 1:44PM ; [facility] History of back surgery 03/17/2018 Last Documented On 1:44PM ; [facility] Medical History Includes: Medical History addressed during this encounter Description Last Updated History of arthritis 03/07/2024 Last Documented On 1:44PM ; [facility] History of History of Emphysema 03/07/20 24 Last Documented On 1:44PM ; [facility] History of Sleep Apnea 03/07/2024 Last Documented On 1:44PM ; [facility] Arthritic joint problems 03/17/2018 Last Documented On 1:44PM ; [facility] Family History Includes: Family History addressed during this encounter Description Last Updated Diabetes mellitus 03/07/2024 Last Documented On 5 1:44PM ; [facility] Family history of heart disease 03/07/20 24 Last Documented On 1:44PM ; [facility] Family history of osteoporosis 4 Last Documented On 1:44PM ; [facility] Fraternal history of diabetes mellitus 0 03/17/2018 Last Documented On 1:44PM ; [facility] Maternal history of family history of he art disease 03/17/2018 Last Documented On 5 1:44PM ; [facility] Maternal history of osteoporosis 018 Last Documented On 5 1:44PM ; [facility] Paternal aunt's history of rheumatoid ar thritis 03/17/2018 Last Documented On 5 1:44PM ; [facility] Review of Systems Includes: [...] On 5 1:44PM ; [facility] Encounters Encounter Provider Location Date Check-In Time Check- Out Time Diagnosis Follow Up Young Neil PA-C [facility] 5 1:34PM 2:08PM Insurance Includes: Active Insurance Policies Plan Name Member ID Group # Subscriber Relationship Effect kar Dates 1 - Medicare Part B of [place] [id number] Antonia Pickens Self 2 - [facility] [id number] Antonia Pickens Self 11/08/2017 - Unknown Clinical Notes Includes: Clinical Notes from this encounter * Progress note Date Encounter Last Documented by 08/02/2025 Follow Up Last documented on 08/02/2025; 2:10 PM, Young Neil PA-C; [facility] Active Problems & Conditions - Joint Pain Hip Bilateral - Joint Pain Hip Right Chief Complaint - Left DEANNA Referred Here Referred by. History of Present Illness Antonia Pickens is a 75 year old female. - Allergy list reviewed [...] - Ondansetron HCl 4 MG Oral Tablet [id number], 5 days, 0 refills - oxyCODONE HCl [...] Current diet: No recent change in diet. Behavioral: Current smoker. Caffeine: Caffeine use. Tobacco use: Smoking status: Current some day smoker. Alcohol: Alcohol [...] allergic reaction. Physical Findings - Vitals taken 08/02/2025 01:44 pm ab Height 62 in Weight 115 lbs Body Mass Index 21 kg/m2 Body Surface Area 1.5 m2 Patient alert and oriented x3 Slow shuffled gait Normal weight Incision well healed Known hip swelling Hip ROM WNL Fires TA/Gastroc/Quad Neurovascularly baseline Tests Three-view x-ray left hip taken today demonstrates well-appearing Press-Fit DEANNA with collared stem in stable acceptable position without signs of loosening or subsidence. Notable osteoporosis Assessment 1 year status post left DEANNA Previous Tests Imaging: X-Ray: X-ray. MRI Scan: An MRI was performed. Therapy - Intervention and counseling 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 of tobacco use. - Clinical summary provided to patient. Counseling/Education - Tobacco non-user - Use of tobacco assessment performed - Instructions for patient to see pcp for bp Plan Fall Risk Assessment: This patient has been [...] been discussed with the patient. Patient is very pleased with the hip surgery, reports no issues today. We will plan for follow up 5 year postop intervals Notes This dictation was done with voice recognition software and may contain errors and omissions. Practice Management Use of tobacco assessment performed and patient screened for future fall risk documentation of any fall with injury in past year Review of medications documented. Care Team - MAGO CORCORAN MD - RETURN AGENT
[2025-09-14 21:13] LABS: VBG PCO2 63.1 mmol/L (35-51)
--- OUTSIDE RECORDS SUMMARY | 2025-09-14 21:13 | XMS_ITS | Clinical Summary ---
Author Organization [facility] Address [address] [place] [address] Care Team Providers Care Furniture Installer Name Role Phone Tariq Betancourt MD Primary [...] - 07/06/2025 11:59 PM EDT Hospital Encounter [facility] [address] [place] [address] José Miguel Abdi MD Dyspnea on exertion; Dyslipidemia; Peripheral arterial disease; Other disorders of arteries, arterioles and capillaries in diseases classified elsewhere Discharge Disposition: Home or Self Care 07/06/2025 Results Follow-Up [facility] [address] [place] [address] José Miguel Abdi MD 07/06/2025 Travel 06/18/2025 10:00 AM EDT Office Visit [facility] [address] [place] [address] José Miguel Abdi MD Peripheral arterial disease (Primary Dx); Angina pectoris; Dyspnea on exertion; Essential hypertension; Dyslipidemia 06/18/2025 Travel from Last 3 Months Family History [...] Visit [facility] [address] [place] [address] José Miguel Abdi MD [address] [place] [address] Health Maintenance Due Date Last Done Comments DXA SCAN 1948 TDAP/TD VACCINES (1 - Tdap) 1967 ZOSTER VACCINE (1 of 2) 1998 RSV Vaccine - Adults (1 - 1- dose 75+ series) 2023 ANNUAL WELLNESS VISIT 09/15/2024 HEPATITIS C SCREENING 09/15/2024 INFLUENZA VACCINE 06/08/2025 08/14/2022, , 08/23/2020, Additional history exists COVID-19 Vaccine (5 - Modern a risk ) 07/09/2025 10/03/2024, 08/25/2022, 06/18/2022, Additional history exists Pneumococcal [...] esult from Last [address] [place] [address] MEDICARE A & B [facility] [place] [address] Care Teams Furniture Installer Relationship Specialty Start Date End Date Tariq Betancourt MD [facility] [address] [place] [address] PCP - General Family Medicine 03/06/25
--- OUTSIDE RECORDS SUMMARY | 2025-09-14 21:13 | XMS_ITS ---
Author Organization [facility] Address [address] [place] [address] Phone Care Team Providers Care Solutions Developer Name Role Phone Rosemarie SINGH, Troy Dubois Unavailable [phone] JEWELL SINGH, MAGO Unavailable [phone] Problems Includes: Active, inactive, and resolved Problems All Visits Onset Date Resolved Date Provider Condition S tatus Joint Pain Hip Right 08/02/2025 Young Rajan Active Last Documented On 5 1:44PM ; [facility] Joint Pain Hip Bilateral 03/17/2018 Troy Houston MD Active Last Documented On 8 3:22PM ; [facility] Plan of Treatment Findings Encounter Date Patient screened for future fall risk: documentation of any fall with injury in past year Follow Up with Raad Olivares PA-C 08/01/2024 Last Documented On 4 2:37PM ; [facility] Pending Tests Order Diagnosis Results Due Ordering Polly dwyer Lab Hemoglobin A1c 04/19/24 Young cullen PA-C Last Documented On 4 8:14AM ; [facility] Lab CBC With Differential/Platelet 04/19 Young Neil PA-C Last Documented On 4 8:14AM ; [facility] Lab Prothrombin Time (PT) 04/19/24 Ann-Marie Neil PA-C Last Documented On 4 8:14AM ; [facility] Lab PTT, Activated 04/19/24 Young cullen PA-C Last Documented On 4 8:14AM ; [facility] Lab Prealbumin 04/19/24 Young Dinora Rashaad [place]-C Last Documented On 4 8:14AM ; [facility] Lab Fructosamine 04/19/24 Young Farias Maura n PA-C Last Documented On 4 8:14AM ; [facility] Lab MRSA by DA 04/19/24 Young Dinora Rashaad PA-C Last Documented On 4 8:14AM ; [facility] Lab Comp. Metabolic Panel (14) 04/19/24 Young Dinora Rashaad [place]-C Last Documented On 4 8:14AM ; [facility] Instructions to patient Instructions for patient to see pcp for bp Last Documented On 5 1:44PM ; [facility] Intervention and counseling 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 of tobacco use Last Documented On 5 1:44PM ; [facility] Instructions for patient to see pcp for bp Last Documented On 4 2:02PM ; [facility] Intervention and counseling 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 of tobacco use Last Documented On 4 2:02PM ; [facility] Instructions for patient to see pcp for bp Last Documented On 4 2:07PM ; [facility] Intervention and counseling 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 of tobacco use Last Documented On 4 2:07PM ; [facility] Instructions for patient to see pcp for bp Last Documented On 4 9:03AM ; [facility] Intervention and counseling 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 of tobacco use Last Documented On 4 9:18AM ; [facility] Instructions for patient to see pcp for bp Last Documented On 8 2:20PM ; [facility] Assessments Includes: Assessments for all patient encounters No Assessments Recorded Instructions Includes: Instructions for all patient encounters Instructions to patient Instructions for patient to see pcp for bp Last Documented On 5 1:44PM ; [facility] Intervention and counseling 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 of tobacco use Last Documented On 5 1:44PM ; [facility] Instructions for patient to see pcp for bp Last Documented On 4 2:02PM ; [facility] Intervention and counseling 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 of tobacco use Last Documented On 4 2:02PM ; [facility] Instructions for patient to see pcp for bp Last Documented On 4 2:07PM ; [facility] Intervention and counseling 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 of tobacco use Last Documented On 4 2:07PM ; [facility] Instructions for patient to see pcp for bp Last Documented On 4 9:03AM ; [facility] Intervention and counseling 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 of tobacco use Last Documented On 4 9:18AM ; [facility] Instructions for patient to see pcp for bp Last Documented On 8 2:20PM ; [facility] Medical Equipment - Implanted Devices Includes: Current and historical Devices No Medical Equipment Recorded Medications Includes: Current and historical Medications Current Medications (continue as prescribed) Aspirin 81 81 MG Oral Tablet Chewable 05/02/2024 Provider: Troy ruby MD Diagnosis: once a day Last Documented On 4 8:31AM By Hung Houston ; [facility] traMADol HCl 50 MG Oral Tablet 05/01/2024 Provider: Troy Houston MD Diagnosis: 1-2 po q 4-6h Last Documented On 4 2:09PM By Hung Houston ; [facility] oxyCODONE HCl 5 MG Oral Tablet 05/01/2024 Provider: Troy Houston MD Diagnosis: 1-2 po q 4-6h Last Documented On 4 2:09PM By Hung Houston ; [facility] Tranexamic Acid 650 MG Oral Tablet 05/01/2024 Provid er: Troy Houston MD Diagnosis: as directed TAKE 3 TABLETS O NE TIME A DAY BEGINNING THE EVENING OF SURGERY FOR FOUR DAYS Last Documented On 4 2:09PM By Hung Houston ; [facility] Ondansetron HCl 4 MG Oral Tablet 05/01/2024 Provider : Troy Houston MD Diagnosis: [id number] Last Documented On 4 2:09PM By Hung Houston ; [facility] Meloxicam 15 MG Oral Tablet 05/01/2024 Provider: Troy Houston MD Diagnosis: once a day Last Documented On 4 2:09PM By Hung Houston ; [facility] Colace 100 MG Oral Capsule 05/01/2024 Provider: Danna Houston MD Diagnosis: 1-2 tabs daily Last Documented On 4 2:09PM By Hung Houston ; [facility] Cefadroxil 500 MG Oral Capsule 05/01/2024 Provider: Troy Houston MD Diagnosis: twice a day Last Documented On 4 2:09PM By Hung Houston ; [facility] Acetaminophen 500 MG Oral Tablet 05/01/2024 Provider : Troy Houston MD Diagnosis: 2 three times a day Last Documented On 4 2:09PM By Hung Houston ; [facility] Albuterol Sulfate HFA 108 (9 0 Base) MCG/ACT Inhalation Aerosol Solution 03/14/2024 Provider: Diagnosis: Last Documented On 4 7:33AM By Abdirashid Mayfield ; [facility] DULoxetine HCl 30 MG Oral Capsule Delayed Release Spri nkle 03/14/2024 Provider: Diagnosis: Last Documented On 4 7:34AM By Abdirashid Mayfield ; [facility], [facility] Metoprolol Succinate ER 100 MG Oral Tablet Extended Release 24 Hour 03/14/2024 Provider: Diagnosis: Last Documented On 4 7:35AM By Abdirashid Mayfield ; [facility] Benazepril HCl 40 MG Oral Tablet 03/03/2024 Provider : MAGO CORCORAN MD Diagnosis: Last Documented On 4 9:22AM By Paula Lewis ; [facility], [facility] Fluticasone Propionate 50 MC G/ACT Nasal Suspension 03/02/2024 Provider: MAGO CORCORAN MD Diagnosis: Last Documented On 4 9:22AM By Paula Lewis ; [facility], [facility] Atorvastatin Calcium 40 MG Oral Tablet 03/02/2024 Pr ovider: MAGO CORCORAN MD Diagnosis: Last Documented On 4 9:22AM By Paula Lewis ; [facility] amLODIPine Besylate 10 MG Oral Tablet 03/02/2024 Pro vider: MAGO CORCORAN MD Diagnosis: Last Documented On 4 9:22AM By Paula Lewis ; [facility] Alendronate Sodium 70 MG Oral Tablet 03/02/2024 Prov ider: MAGO CORCORAN MD Diagnosis: Last Documented On 4 9:22AM By Paula Lewis ; [facility] Furosemide 40 MG Oral Tablet 03/02/2024 Provider: MAGO CORCORAN MD Diagnosis: Last Documented On 4 9:22AM By Paula Lewis ; [facility] Clopidogrel Bisulfate 75 MG Oral Tablet 03/02/2024 P rovider: MAGO CORCORAN MD Diagnosis: Last Documented On 4 9:22AM By Paula Lewis ; [facility] Past Medications on file Aspirin 81 81 MG Oral Tablet Chewable 05/01/2024 - 05/02/2024 Provider: Troy ravi MD Diagnosis: twice a day Last Documented On 4 8:26AM By Hung Houston ; [facility] Nabumetone 500 MG Oral Tablet 12/18/2023 - 03/14/2024 Provider: Raul Shannon Md Diagnosis: Last Documented On 4 7:32AM By Abdirashid Mayfield ; [facility] Lisinopril 10MG Oral Tablet 05/20/2018 - 03/07/2024 Pr ovider: MAGO CORCORAN MD Diagnosis: Last Documented On 4 9:21AM By Paula Lewis ; [facility] GNP Vitamin D 400UNIT Oral Tablet Chewable 05/12/2018 - 03/07/2024 Provider: Diagnosis: Last Documented On 4 9:22AM By Paula Lewis ; [facility] TraMADol HCl 50MG Oral Tablet 03/29/2018 - 03/07/2024 Provider: TROY FRANCOIS MD Diagnosis: Last Documented On 4 9:22AM By Paula Lewis ; [facility] OxyCODONE HCl 5MG Oral Tablet 03/29/2018 - 03/07/2024 Provider: TROY FRANCOIS MD Diagnosis: Last Documented On 4 9:22AM By Paula Lewis ; [facility] Neurontin 300MG Oral Capsule 03/22/2018 - 05/12/2018 Provider: Troy ravi MD Diagnosis: 1 every bedtime for surgery DO NOT FILL TILL 5-18 Last Documented On 8 1:04PM By Samantha Howard ; [facility] TraMADol HCl 50MG Oral Tablet 03/22/2018 - 03/27/2018 Provider: Troy ravi MD Diagnosis: 2 Tablets every 6 hours PRN pain for surgery DO NOT FILL TILL 5--18 Last Documented On 8 10:34AM By Bella Deleon ; [facility] OxyCODONE HCl 5MG Oral Tablet 03/22/2018 - 03/24/2018 Provider: Troy ravi MD Diagnosis: 1-2 pills every 4-6 hours VA N pain for surgery DO NOT FILL TILL 5--18 Last Documented On 8 10:33AM By Bella Deleon ; [facility] Colace 100MG Oral Capsule 03/22/2018 - 06/20/2018 Provider: Troy ravi MD Diagnosis: 1-2 tabs daily for surgery * *DO NOT FILL TILL 5-18 Last Documented On 8 10:40AM By Bella Deleon ; [facility] Acetaminophen 500MG Oral Tablet 03/22/2018 - 03/30/2018 Provider: Troy Houston MD Diagnosis: 2 three times a day for surg tiffanie DO NOT FILL TILL 5--18 Last Documented On 8 10:40AM By Bella Deleon ; [facility] Mupirocin 2% External Ointment 03/21/2018 - 03/07/2024 Provider: TROY FRANCOIS MD Diagnosis: Last Documented On 4 9:22AM By Paula Lewis ; [facility] Mupirocin 2% External Ointment 03/21/2018 - 03/26/2018 Provider: Troy ravi MD Diagnosis: Apply to nostrils 3 time a d ay 5 days prior to surgery. Last Documented On 8 10:49AM By Jaja Rutledge ; [facility] Amlodipine Besy-Benazepril H Cl 5-20MG Oral Capsule 02/15/2018 - 06/23/2018 Provider: MAGO Queen Diagnosis: Last Documented On 8 2:16PM By Elisha Flores ; [facility] Atorvastatin Calcium 40MG Or al Tablet 02/15/2018 - 03/07/2024 Provider: MAGO Queen Diagnosis: Last Documented On 4 9:22AM By Paula Lewis ; [facility] Medications Administered Includes: Administered Medications in patient's chart No Administered Medications Recorded Vital Signs Includes: Vital Signs from 09/14/2024 through 09/14/2025 Vital Name 08/02/2025 01:44P Height (in) 62 Weight (lb) 115 Body Mass Index 21 Body Surface Area 1.5 Note: ab Last Documented: On 08/02/2025 1:59PM ; [facility] Results Includes: Results from 09/14/2024 through 09/14/2025 No Results Recorded For Specified Dates History of Present Illness History of Present Illness not supported for this document type No History of Present Illness Recorded Social History Description Last Updated No recent change in diet 08/02/2025 Last Documented On 5 2:10PM ; [facility] Not using drugs 08/02/2025 Last Documented On 5 2:10PM ; [facility] Alcohol use 03/07/2024 Last Documented On 4 9:37AM ; [facility] Caffeine use 03/07/2024 Last Documented On 4 9:37AM ; [facility] Not exercising regularly 03/07/2024 Last Documented On 4 9:37AM ; [facility] Yes, current smoker. 03/07/2024 Last Documented On 4 9:37AM ; [facility] Tobacco use 03/07/2024 Last Documented On 4 9:37AM ; [facility] Smoking status Current some day smoker 0 03/17/2018 Last Documented On 8 5:58PM ; [facility] Current smoker 03/17/2018 Last Documented On 8 5:58PM ; [facility] Procedures and Surgical History Includes: Procedures from 09/14/2024 through 09/14/2025 Procedures Code Diagnosis Performing Provider Service Location Service Date PELVIS w/ 2-3 VIEW HIP (RIGHT) 72073 Unilateral primary osteoarthritis, right hip, Presence of right artificial hip joint Young Neil PA-C [facility] 08/02/2025 Last Documented On 5 2:46PM ; [facility] Surgical History Last Updated History of Previous Fractures 03/07/2024 Last Documented On 4 9:37AM ; [facility] History of total hip replacement 024 Last Documented On 4 9:37AM ; [facility] History of back surgery 03/17/2018 Last Documented On 8 5:58PM ; [facility] Medical History Includes: Medical History in patient's chart Description Last Updated History of arthritis 03/07/2024 Last Documented On 4 9:37AM ; [facility] History of History of Emphysema 03/07/20 24 Last Documented On 4 9:37AM ; [facility] History of Sleep Apnea 03/07/2024 Last Documented On 4 9:37AM ; [facility] Arthritic joint problems 03/17/2018 Last Documented On 8 5:58PM ; [facility] Family History Includes: Family History in patient's chart Description Last Updated Diabetes mellitus 03/07/2024 Last Documented On 4 9:37AM ; [facility] Family history of heart disease 03/07/20 24 Last Documented On 4 9:37AM ; [facility] Family history of osteoporosis 4 Last Documented On 4 9:37AM ; [facility] Fraternal history of diabetes mellitus 0 03/17/2018 Last Documented On 8 5:58PM ; [facility] Maternal history of family history of he art disease 03/17/2018 Last Documented On 8 5:58PM ; [facility] Maternal history of osteoporosis 018 Last Documented On 8 5:58PM ; [facility] Paternal aunt's history of rheumatoid ar thritis 03/17/2018 Last Documented On 8 5:58PM ; [facility] Review of Systems Review of Systems not supported for this document type No Review of Systems Recorded Mental Status Description No anxiety Functional Status No Functional Status Recorded Physical Exam Physical Exam not supported for this document type No Physical Exam Recorded Allergies Includes: Active, inactive, and resolved Allergies Substance Type Reaction Onset Date Resolved Date Statu s Ibuprofen Allergy 03/17/2018 Active Last Documented On 5 1:44PM ; [facility] Encounters Includes: Encounters from 09/14/2024 through 09/14/2025 Encounter Provider Location Date Check-In Time Check- Out Time Diagnosis Follow Up Young Neil PA-C [facility] 5 1:34PM 2:08PM Insurance Includes: Active Insurance Policies Plan Name Member ID Group # Subscriber Relationship Effect kar Dates 1 - Medicare Part B [facility] [id number] Antonia Pickens Self 2 - [facility] [id number] Antonia Pickens Self 11/08/2017 - Unknown Clinical Notes Includes: Signed Clinical Notes starting from 10/22/2022 * Progress note Date Encounter Last Documented by 08/02/2025 Follow Up Last documented on 08/02/2025; 2:10 PM, Young Neil PA-C; [facility] Active Problems & Conditions - Joint Pain [...] - Ondansetron HCl 4 MG Oral Tablet [id number], 5 days, 0 refills - oxyCODONE HCl [...] Care Team - MAGO CORCORAN MD - PATIENT RELATIONS LIAISON
--- OUTSIDE RECORDS SUMMARY | 2025-09-14 21:13 | XMS_ITS | Clinical Summary ---
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 Name Role Phone Rosemarie SINGH, Ezequiel Dubois Unavailable [phone] JEWELL SINGH, MAGO Unavailable [phone] Reason for Visit and Chief Complaint The Chief Complaint is: Left DEANNA Problems Includes: Problems addressed during this encounter and other active Problems All Visits Onset Date Resolved Date Provider Condition S tatus Joint Pain Hip Right 08/02/2025 Young Rajan Active Last Documented On 5 1:44PM ; [facility] Joint Pain Hip Bilateral 03/17/2018 Ezequiel Houston MD Active Last Documented On 8 3:22PM ; [facility] Plan of Treatment Fall Risk Assessment: This [...] with the patient. - Last Documented On 06/13/2024 4:22PM ; [facility] Overall patient is pleased with the progress, we discussed the importance of patients with increasing activities. Start physical therapy outpatient. We will plan for follow up 6 weeks - Last Documented On 06/13/2024 4:22PM ; [facility] Pending Tests Order Diagnosis Results Due Ordering Polly dwyer Lab Hemoglobin A1c 04/19/24 Young F Hen son PA-C Last Documented On 4 8:14AM ; [facility] Lab CBC With Differential/Platelet 04/19 Young Neil PA-C Last Documented On 4 8:14AM ; [facility] Lab Prothrombin Time (PT) 04/19/24 Ann-Marie Neil PA-C Last Documented On 4 8:14AM ; [facility] Lab PTT, Activated 04/19/24 Young cullen PA-C Last Documented On 4 8:14AM ; [facility] Lab Prealbumin 04/19/24 Young Neil PA-C Last Documented On 4 8:14AM ; [facility] Lab Fructosamine 04/19/24 Young Lorenzo n PA-C Last Documented On 4 8:14AM ; [facility] Lab MRSA by DA 04/19/24 Young Neil PA-C Last Documented On 4 8:14AM ; [facility] Lab Comp. Metabolic Panel (14) 04/19/24 Young Neil PA-C Last Documented On 4 8:14AM ; [facility] Instructions to patient Instructions for patient to see pcp for bp Last Documented On 4 2:07PM ; [facility] Intervention and counseling 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 of tobacco use Last Documented On 4 2:07PM ; [facility] Assessments Includes: Assessments from this encounter Findings 6 weeks status six weeks status post right DEANNA - Last Documented On 06/13/2024 4:22PM ; [facility] Instructions Includes: Instructions from this encounter Instructions to patient Instructions for patient to see pcp for bp Last Documented On 4 2:07PM ; [facility] Intervention and counseling 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 of tobacco use Last Documented On 4 2:07PM ; [facility] Medical Equipment - Implanted Devices Includes: Current Devices No Medical Equipment Recorded Medications Includes: Medications discussed during this encounter and other current Medications Current Medications (continue as prescribed) Aspirin 81 81 MG Oral Tablet Chewable 05/02/2024 Provider: Eezquiel ruby MD Diagnosis: once a day Last Documented On 4 8:31AM By Hung Houston ; [facility] traMADol HCl 50 MG Oral Tablet 05/01/2024 Provider: Ezequiel Houston MD Diagnosis: 1-2 po q 4-6h Last Documented On 4 2:09PM By Hung Houston ; [facility] oxyCODONE HCl 5 MG Oral Tablet 05/01/2024 Provider: Ezequiel Houston MD Diagnosis: 1-2 po q 4-6h Last Documented On 4 2:09PM By Hung Houston ; [facility] Tranexamic Acid 650 MG Oral Tablet 05/01/2024 Provid er: Ezequiel Houston MD Diagnosis: as directed TAKE 3 TABLETS O NE TIME A DAY BEGINNING THE EVENING OF SURGERY FOR FOUR DAYS Last Documented On 4 2:09PM By Hung Houston ; [facility] Ondansetron HCl 4 MG Oral Tablet 05/01/2024 Provider : Ezequiel Houston MD Diagnosis: [id number] Last Documented On 4 2:09PM By Hung Houston ; [facility] Meloxicam 15 MG Oral Tablet 05/01/2024 Provider: Ezequiel Houston MD Diagnosis: once a day Last Documented On 4 2:09PM By Hung Houston ; [facility] Colace 100 MG Oral Capsule 05/01/2024 Provider: Danna Houston MD Diagnosis: 1-2 tabs daily Last Documented On 4 2:09PM By Hung Houston ; [facility] Cefadroxil 500 MG Oral Capsule 05/01/2024 Provider: Ezequiel Houston MD Diagnosis: twice a day Last Documented On 4 2:09PM By Hung Houston ; [facility] Acetaminophen 500 MG Oral Tablet 05/01/2024 Provider : Ezequiel Houston MD Diagnosis: 2 three times a day Last Documented On 4 2:09PM By Hung Houston ; [facility] Albuterol Sulfate HFA 108 (9 0 Base) MCG/ACT Inhalation Aerosol Solution 03/14/2024 Provider: Diagnosis: Last Documented On 4 7:33AM By Abdirashid Mayfield ; [facility] DULoxetine HCl 30 MG Oral Capsule Delayed Release Spri nkle 03/14/2024 Provider: Diagnosis: Last Documented On 4 7:34AM By Abdirashid Mayfield ; [facility] Metoprolol Succinate ER 100 MG Oral Tablet Extended Release 24 Hour 03/14/2024 Provider: Diagnosis: Last Documented On 4 7:35AM By Abdirashid Mayfield ; [facility] Benazepril HCl 40 MG Oral Tablet 03/03/2024 Provider : MAGO CORCORAN MD Diagnosis: Last Documented On 4 9:22AM By Paula Lewis ; [facility] Fluticasone Propionate 50 MC G/ACT Nasal Suspension 03/02/2024 Provider: MAGO CORCORAN MD Diagnosis: Last Documented On 4 9:22AM By Paula Lewis ; [facility] Atorvastatin Calcium 40 MG Oral Tablet 03/02/2024 Pr ovider: MAGO CORCORAN MD Diagnosis: Last Documented On 4 9:22AM By Paula Lewis ; [facility] amLODIPine Besylate 10 MG Oral Tablet 03/02/2024 Pro vider: MAGO CORCORAN MD Diagnosis: Last Documented On 4 9:22AM By Paula Lewis ; [facility] Alendronate Sodium 70 MG Oral Tablet 03/02/2024 Prov ider: MAGO CORCORAN MD Diagnosis: Last Documented On 4 9:22AM By Paula Lewis ; [facility] Furosemide 40 MG Oral Tablet 03/02/2024 Provider: MAGO CORCORAN MD Diagnosis: Last Documented On 4 9:22AM By Paula Lewis ; [facility] Clopidogrel Bisulfate 75 MG Oral Tablet 03/02/2024 P rovider: MAGO CORCORAN MD Diagnosis: Last Documented On 4 9:22AM By Paula Lewis ; [facility] Past Medications on file TraMADol HCl 50MG Oral Tablet 03/22/2018 - 03/27/2018 Provider: Ezequiel ravi MD Diagnosis: 2 Tablets every 6 hours PRN pain for surgery DO NOT FILL TILL 18 Last Documented On 8 10:34AM By Bella Deleon ; [facility] OxyCODONE HCl 5MG Oral Tablet 03/22/2018 - 03/24/2018 Provider: Ezequiel ravi MD Diagnosis: 1-2 pills every 4-6 hours NV N pain for surgery DO NOT FILL TILL 18 Last Documented On 8 10:33AM By Bella Deleon ; [facility] Colace 100MG Oral Capsule 03/22/2018 - 06/20/2018 Provider: Ezequiel ravi MD Diagnosis: 1-2 tabs daily for surgery * *DO NOT FILL TILL 03-28-18 Last Documented On 8 10:40AM By Bella Deleon ; [facility] Acetaminophen 500MG Oral Tablet 03/22/2018 - 03/30/2018 Provider: Ezequiel Houston MD Diagnosis: 2 three times a day for surg tiffanie DO NOT FILL TILL 03-28-18 Last Documented On 8 10:40AM By Bella Deleon ; [facility] Mupirocin 2% External Ointment 03/21/2018 - 03/26/2018 Provider: Ezequiel ravi MD Diagnosis: Apply to nostrils 3 time a d ay 5 days prior to surgery. Last Documented On 8 10:49AM By Jaja Rutledge ; [facility] Medications Administered Includes: Administered Medications from this encounter No Administered Medications Recorded Results Includes: Results discussed during this encounter No Results Recorded For Specified Dates History of Present Illness Includes: History of Present Illness from this encounter APRIL Pickens is a 73 year old female. - Allergy list reviewed - Problem list reviewed - Medication list reviewed - Patient pain level from 1-10: 8 - No previous treatment. Social History Description Last Updated No recent change in diet 06/13/2024 Last Documented On 4 4:22PM ; [facility] Not using drugs 06/13/2024 Last Documented On 4 4:22PM ; [facility] Alcohol use 03/07/2024 Last Documented On 4 2:07PM ; [facility] Caffeine use 03/07/2024 Last Documented On 4 2:07PM ; [facility] Not exercising regularly 03/07/2024 Last Documented On 4 2:07PM ; [facility] Yes, current smoker. 03/07/2024 Last Documented On 4 2:07PM ; [facility] Tobacco use 03/07/2024 Last Documented On 4 2:07PM ; [facility] Smoking status Current some day smoker 0 03/17/2018 Last Documented On 4 2:07PM ; [facility] Current smoker 03/17/2018 Last Documented On 4 2:07PM ; [facility] Procedures and Surgical History Includes: Procedures from this encounter Procedures Code Diagnosis Performing Provider Service L ocation Service Date history of orthopedic options: physical therapy Last Documented On 4 2:07PM ; [facility] 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 Last Documented On 4 2:07PM ; [facility] use of tobacco assessment performed 1000F Last Documented On 4 2:07PM ; [facility] patient screened for future fall risk: documentation of any fall with injury in past year 1100F Last Documented On 4 2:07PM ; [facility] review of medications documented 1160F Last Documented On 4 2:07PM ; [facility] Clinical summary provided to patient Last Documented On 4 2:07PM ; [facility] an X-ray was performed 79067 Last Documented On 4 2:07PM ; [facility] an MRI was performed [id number] Last Documented On 4 2:07PM ; [facility] Surgical History Last Updated History of Previous Fractures 03/07/2024 Last Documented On 4 2:07PM ; [facility] History of total hip replacement 024 Last Documented On 4 2:07PM ; [facility] History of back surgery 03/17/2018 Last Documented On 4 2:07PM ; [facility] Medical History Includes: Medical History addressed during this encounter Description Last Updated History of arthritis 03/07/2024 Last Documented On 4 2:07PM ; [facility] History of History of Emphysema 03/07/20 24 Last Documented On 4 2:07PM ; [facility] History of Sleep Apnea 03/07/2024 Last Documented On 4 2:07PM ; [facility] Arthritic joint problems 03/17/2018 Last Documented On 4 2:07PM ; [facility] Family History Includes: Family History addressed during this encounter Description Last Updated Diabetes mellitus 03/07/2024 Last Documented On 4 2:07PM ; [facility] Family history of heart disease 03/07/20 24 Last Documented On 4 2:07PM ; [facility] Family history of osteoporosis 4 Last Documented On 4 2:07PM ; [facility] Fraternal history of diabetes mellitus 0 03/17/2018 Last Documented On 4 2:07PM ; [facility] Maternal history of family history of he art disease 03/17/2018 Last Documented On 4 2:07PM ; [facility] Maternal history of osteoporosis 018 Last Documented On 4 2:07PM ; [facility] Paternal aunt's history of rheumatoid ar thritis 03/17/2018 Last Documented On 4 2:07PM ; [facility] Review of Systems Includes: Review of Systems [...] Active Last Documented On 5 1:44PM ; [facility] Encounters Encounter Provider Location Date Check-In Time Check- Out Time Diagnosis Post Op Young Neil PA-C [facility] 4 1:58PM 2:38PM Insurance Includes: Active Insurance Policies Plan Name Member ID Group # Subscriber Relationship Effect kar Dates 1 - Medicare Part B [facility] [id number] Antonia Pickens Self 2 - [facility] [id number] Antonia Pickens Self 11/08/2017 - Unknown Clinical Notes Includes: Clinical Notes from this encounter * Progress note Date Encounter Last Documented by 06/13/2024 Post Op Last documented on 06/13/2024; 4:22 PM, Young Neil PA-C; [facility] Active Problems & Conditions - Joint Pain in Both Hips - Joint Pain in the Right Hip Chief Complaint The Chief Complaint is: Left DEANNA. Referred Here Referred by. History of Present Illness Antonia Pickens is a 73 year old female. - Allergy list reviewed - Problem list reviewed - Medication list reviewed - Patient pain level from 1-10: 8 - No previous treatment. Current Medication - Acetaminophen 500 MG Oral [...] - Ondansetron HCl 4 MG Oral Tablet [id number], 5 days, 0 refills - oxyCODONE HCl [...] Complaint of seasonal allergic reaction. Physical Findings Incision well healed, well-appearing scar Mild residual hip swelling Hip ROM mildly stiff LLD 3 mm long Strength 5/5 TA/Gastroc/Quad Sensation intact to light touch throughout Palpable pulses DP/PT Tests Three-view x-ray right hip taken today demonstrates well-appearing DEANNA Assessment 6 weeks status six weeks status post right DEANNA Previous Tests Imaging: X-Ray: An X-ray was performed. MRI Scan: An MRI was performed. Therapy - Intervention and counseling 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 of tobacco use. - Clinical summary provided to patient. Counseling/Education - Instructions for patient to see pcp [...] therapy has been discussed with the patient. Overall patient is pleased with the progress, we discussed the importance of patients with increasing activities. Start physical therapy outpatient. We will plan for follow up 6 weeks Notes This dictation was done with voice recognition software and may contain errors and omissions. Practice Management Use of tobacco assessment performed and patient screened for future fall risk documentation of any fall with injury in past year Review of medications documented. Care Team - MAGO CORCORAN MD - B[employer] TRIMMER UPHOLSTERER
[2025-09-14 21:15] LABS: Hematocrit 28.5 % (37.0-47.0); Hemoglobin 9.1 g/dL (12.2-16.2); Immature Granulocytes % 1.0 %; Mean Corpuscular HGB Conc 31.9 g/dL (31.8-35.4); Mean Corpuscular Hemoglobin 29.8 pg (27.0-31.2); Mean Corpuscular Volume 93.4 fl (81-99); Nucleated Red Blood Cells % 0 %; Platelet Count 418 K/mm3 (142-424); Red Blood Count 3.05 M/mm3 (4.20-5.40); Red Cell Distribution Width-SD 46.9 fL; White Blood Count 7.0 K/mm3 (4.8-10.8)
--- NOTE | 2025-09-14 21:17 | HMH.EDGENADL ---
Discharge Plan Disposition Patient Disposition: Admitted Condition: Fair Clinical Impressions Clinical Impression: Acute hypoxic respiratory failure, Elevated troponin Discharge ED Provider: Heather Melara Adult HPI General Chief complaint: Shortness of Breath/Dyspnea Stated complaint: SOA Time Seen by Provider: 09/14/25 21:08 History of Present Illness HPI narrative: Patient is a 75-year-old female presents to the emergency department with shortness of breath for the last week. She states that it started on Wednesday has gradually gotten worse over the last few days. Patient wears 2 L nasal cannula at home family states that her oxygen has been checked at home multiple times and has been in the 80s. Patient denies any cough or fever. Patient denies any chest pain. Patient has not had any abdominal pain nausea vomiting or diarrhea. Patient states that she feels short of breath at rest as well as with exertion. Patient denies any other recent travel. Patient has had no other recent sick contacts. Patient does have a history of lung cancer and received radiation 1 month ago but no recent chemotherapy or other recent interventions. Related Data Home Medications ?Medication ?Instructions ?Recorded ?Confirmed aspirin 81 mg tablet,delayed 81 mg PO DAILY heart health 03/20/21 09/05/25 release (Adult Low Dose Aspirin) calcium 600 mg (as 1 tab PO DAILY Supplement 03/20/21 09/05/25 carbonate)-vitamin D3 5 mcg (200 unit) tablet (Calcium 600 + D(3)) fluticasone propionate 50 2 spray intranasal DAILY allergies 03/20/21 09/05/25 mcg/actuation nasal spray,suspension clopidogrel 75 mg tablet 75 mg PO DAILY Blood thinner 09/14/22 09/05/25 alendronate 70 mg tablet 70 mg PO WEEKLY . 02/17/23 09/05/25 metoprolol succinate 100 mg 100 mg PO DAILY BLOOD PRESSURE 03/17/23 09/05/25 tablet,extended release 24 hr albuterol sulfate 90 mcg/actuation 2 puff inhalation Q6H PRN 03/15/24 09/05/25 aerosol inhaler Shortness Of Breath amlodipine 10 mg tablet 10 mg PO DAILY 03/15/24 09/05/25 furosemide 40 mg tablet 20 mg PO DAILY 04/17/25 09/05/25 atorvastatin 40 mg tablet 40 mg PO DAILY 05/15/25 09/05/25 benazepril 40 mg tablet 40 mg PO DAILY 05/15/25 09/05/25 duloxetine 60 mg capsule,delayed 60 mg PO DAILY 05/15/25 09/05/25 release megestrol 400 mg/10 mL (40 mg/mL) 800 mg PO DAILY 08/17/25 09/05/25 oral suspension prednisone 20 mg tablet 20 mg PO DAILY 08/17/25 09/05/25 Previous Rx's ?Medication ?Instructions ?Recorded ipratropium 0.5 mg-albuterol 3 mg 3 ml inhalation Q8H 3 months #540 08/17/25 (2.5 mg base)/3 mL nebulization mL soln Allergies Allergy/AdvReac Type Severity Reaction Status Date / Time cefdinir (From Omnicef) Allergy Intermediate disoriented Verified 09/05/25 13:17 ibandronate sodium (From Allergy Intermediate BP high & Verified 09/05/25 13:17 Boniva) low moxifloxacin (From Avelox) Allergy Unknown Unknown Verified 09/05/25 13:17 allergy reaction PFSH PFS Disclaimer: The information contained in this section may have been updated after the patient was seen, as this information can be updated by other users. Medical History History of femur fracture CAD (coronary artery disease) Abnormal CT scan of lung Smoking greater than 30 pack years Lung nodule COPD mixed type Sleep apnea COPD (chronic obstructive pulmonary disease) Menopause Osteoporosis Osteoarthritis Carpal tunnel syndrome History of cataract Hyperlipidemia Hypertension Tobacco abuse Currently working on decreasing sugars per day, (average 15 at this time) Renal artery stenosis Suspected secondary hypertension Edema of left lower extremity Pain in left lower leg Claudication Surgical History History of back surgery History of tubal ligation History of intravascular stent placement History of right hip replacement History of colonoscopy History of carpal tunnel release History of left hip replacement Family History Brother Family history of myocardial infarction Family history of diabetes mellitus type II Mother Family history of myocardial infarction Other Family history of stroke Social History Smoking Status: Former smoker tobacco type: cigarettes packs per day: 1 smoking status start date: 1 pack per week alcohol intake: never substance use type: denies use current occupational status: retired Travel in the last 8 weeks?: None household members: spouse housing: house current occupational exposures/hazards: No caffeine: No Have you lived/traveled outside [place] in past 30 days?: No Contact w/someone who lives/traveled outside [place] past 30 days?: No Exposure to someone with infectious disease in past 14 days?: No Do you have a fever (greater than 100.4 F or 38 C)?: No Have you tested positive for COVID-19?: No Exposed to someone with COVID-19 in past 14 days?: No Do you have a sore throat?: No Do you have a cough?: No Do you have any weakness?: No Do you have any diarrhea?: No Are you experiencing any unusual bleeding?: No Do you have any muscle aches/pain?: No Do you have any abdominal pain?: No Are you experiencing loss of taste or smell?: No Other Medical History Have you received the Flu Vaccine for this season: No Have you received the Pneumonia Vaccine: Yes ROS Obtained: Yes All systems reviewed & no additional complaints except as documented and Yes Systems reviewed as appropriate & no additional complaints except as documented Physical Exam General General appearance: alert and in no apparent distress Head Head exam: atraumatic, normocephalic and normal inspection Eye Eye exam: Present normal appearance, PERRL and EOMI; Absent scleral icterus ENT ENT exam: Present normal exam and normal external ear exam Neck Neck exam: Present normal inspection and full ROM Chest Chest inspection: Present normal inspection and symmetric chest wall rise Respiratory Respiratory exam: Present normal lung sounds bilaterally; Absent respiratory distress or wheezes Cardiovascular Cardiovascular exam: Present regular rate, normal rhythm and normal heart sounds Abdominal Exam Abdominal exam: Present soft and distention; Absent tenderness, guarding or rebound Extremities Exam Extremities exam: Present normal inspection and full ROM Back Exam Back exam: Present normal inspection and full ROM Neurological Exam Neurological exam: Present alert and oriented X3 Psychiatric Psychiatric exam: Present normal affect and normal mood Skin Skin exam: Present warm and dry Medical Decision Making Medical Records Medical records reviewed: Yes I reviewed the patient's medical records. Screening: Per USPSTF and CDC recommendations, given the prevalence of disease in our region, it is our hospital?s policy to screen for HIV and viral Hepatitis for all patients aged 18 and over and those with ongoing risk factors. Davin Inquiry Pt receiving controlled substance: No Vital Signs: 09/14/25 20:50 09/14/25 21:30 09/14/25 21:33 Temperature 98.4 F Temperature Source Oral Pulse Rate 82 Pulse Rate [Right] 82 Respiratory Rate 21 32 H Blood Pressure 123/51 L Blood Pressure [Left Arm] 135/80 Blood Pressure Mean [Left Arm] 98 Blood Pressure Source Automatic Cuff Blood Pressure Source [Left Arm] Automatic Cuff Blood Pressure Position Blood Pressure Position [Left Arm] Supine 02 Sat by Pulse Oximetry 92 L 87 L 91 L Oxygen Delivery Method Room Air Nasal Cannula Nasal Cannula Oxygen Flow Rate (LPM) 2 4 09/14/25 22:00 09/14/25 23:51 Temperature 98.1 F Temperature Source Oral Pulse Rate 80 79 Pulse Rate [Right] Respiratory Rate 22 17 Blood Pressure 131/56 L 111/57 L Blood Pressure [Left Arm] Blood Pressure Mean [Left Arm] Blood Pressure Source Automatic Cuff Automatic Cuff Blood Pressure Source [Left Arm] Blood Pressure Position Supine Blood Pressure Position [Left Arm] 02 Sat by Pulse Oximetry 98 Oxygen Delivery Method Nasal Cannula Nasal Cannula Oxygen Flow Rate (LPM) 4 4 Lab Data Lab results reviewed: Yes I reviewed the patient's lab results. Lab Results 09/14/25 21:00: WBC 7.0, RBC 3.05 L, Hgb 9.1 L, Hct 28.5 L, MCV 93.4, MCH 29.8, MCHC 31.9, RDW 13.8, Plt Count 418, MPV 8.8, Neut % (Auto) 75.8, Lymph % (Auto) 8.8 L, [place]verse % (Auto) 11.7 H, Eos % (Auto) 2.1, Baso % (Auto) 0.6, Neut # (Auto) 5.3, Lymph # (Auto) 0.6 L, [place]verse # (Auto) 0.8, Eos # (Auto) 0.2, Baso # (Auto) 0.0, VBG pH 7.32, VBG pCO2 63.1 H, VBG pO2 33.0, VBG HCO3 31.6 H, VBG Total CO2 33.6 H, VBG O2 Saturation 56.1, VBG Base Excess 5.5 H, VBG Lactic Acid 1.6, Sodium 133 L, Potassium 4.1, Chloride 95 L, Carbon Dioxide 35 H, Anion Gap 7.1, BUN 15, Creatinine 0.60, Estimated GFR 97, Est GFR ( Amer) 117, Glucose 115 H, Calcium 9.8, Phosphorus 4.0, Magnesium 2.0, Total Bilirubin 0.4, AST 24, ALT 23, Alkaline Phosphatase 53, Troponin I 0.15 H, NT-Pro-B Natriuret Pep 8210 H, Total Protein 7.4, Albumin 3.7, Globulin 3.7 H, Albumin/Globulin Ratio 1.0 L 09/14/25 21:00 09/14/25 21:00 Orders (Tests/Meds): ED MEDICATIONS Generic Name Dose Route Start Last Admin Trade Name Freq PRN Reason Stop Dose Admin Acetaminophen 650 mg 09/14/25 23:18 Acetaminophen 325mg Tab PO 10/14/25 23:17 Q4HP PRN Fever or Mild Pain (1-3) Hydrocodone Bitart/Acetaminophen 1 tab 09/14/25 23:18 Hydrocodone/Apap 5/325 Mg Tablet PO 10/14/25 23:17 Q4HP PRN Mild to Moderate Pain (1-6) Albuterol/Ipratropium 3 ml 09/15/25 00:00 09/15/25 00:14 Ipratropium/Albuterol 3 Ml Neb IH 10/15/25 00:00 3 ml Q6RT BROCK Administration Enoxaparin Sodium 40 mg 09/15/25 09:00 Enoxaparin 40mg/0.4ml Syringe SUBCUT 10/15/25 08:59 DAILY BROCK Furosemide 40 mg 09/14/25 23:18 09/14/25 23:43 Furosemide 40mg/4ml Vial IV 09/14/25 23:19 40 mg ONCE ONE Administration Nicotine 21 mg 09/14/25 23:18 Nicotine 21mg/24hr Patch TD 10/14/25 23:17 DAILYP PRN Nicotine Cravings Ondansetron HCl 4 mg 09/14/25 23:18 Ondansetron 4mg/2ml Vial IV 10/14/25 23:17 Q8HP PRN Nausea Sodium Chloride 10 ml 09/14/25 23:18 Sodium Chloride 0.9% 10ml Flush Syringe IV 10/14/25 23:17 NEEDED PRN Maintain IV Site ORDERS Category Date Time Status CT angio chest PE protocol Stat Cat Scan 09/14/25 21:09 Completed BNP [NT Pro Brain Natriuretic Pep.] Stat Lab 09/14/25 21:00 Completed CBC w/Auto Diff [Complete Blood Count Auto Diff] Stat Lab 09/14/25 21:00 Completed CMP [Comprehensive Metabolic Panel] Stat Lab 09/14/25 21:00 Completed MAG [Magnesium] Stat Lab 09/14/25 21:00 Completed PHOS [Phosphorous] Stat Lab 09/14/25 21:00 Completed Trop I [Troponin I] Stat Lab 09/14/25 21:00 Completed Troponin I Q3H Lab 09/15/25 00:15 Ordered Troponin I Q3H Lab 09/15/25 03:15 Ordered UA [Urinalysis and Microscopic] Stat Lab 09/14/25 21:09 Ordered Blood Culture Stat Micro 09/14/25 21:38 Received Urine Culture Stat Micro 09/14/25 21:09 Ordered VBG [Venous Blood Gas] Stat RT 09/14/25 21:00 Completed Medical Decision Narrative: Patient is a 75-year-old female who presented to the emergency department with shortness of breath over the last week. On arrival, patient was hemodynamically stable hypoxic on 4 L nasal cannula. Differential includes but not limited to: Pulmonary embolism, progression of cancer, pneumonia, viral syndrome, amongst others. Bedside ultrasound was performed on arrival which showed no B-lines, no right ventricular enlargement, no pericardial effusion. Patient was placed on the monitor patient's initial O2 saturation was in the 70s on 6 L nasal cannula patient was placed on a nonrebreather. After replacement of the oxygen probe onto patient's ear patient was found to be 90% on 4 L nasal cannula. Patient's labs were reviewed and interpreted by myself: CBC showed no leukocytosis, hemoglobin was stable. VBG with no acidosis mildly elevated CO2 of 63. Normal lactate. CMP was unremarkable. Mildly elevated BNP of 8210. Initial troponin 0.15. PE was obtained which showed no pulmonary embolism no progression of cancer. Given patient's elevated troponin, elevated BNP, acute hypoxic respiratory failure felt the patient warranted admission. I discussed the case with hospitalist patient was ultimately admitted to their service for further evaluation workup. Critical Care Critical Care Time Critical Care Time: No
[2025-09-14 21:20] LABS: Alanine Aminotransferase 23 U/L (12-78); Albumin Level 3.7 g/dl (3.5-5.0); Albumin/Globulin Ratio 1.0 (1.1-1.8); Alkaline Phosphatase 53 U/L (38-126); Anion Gap 7.1 mEq/L (5-15); Aspartate Amino Transferase 24 U/L (14-36); Bilirubin,Total 0.4 mg/dl (0.2-1.3); Blood Urea Nitrogen 15 mg/dl (7-17); Calcium 9.8 mg/dl (8.4-10.2); Carbon Dioxide 35 mmol/L (22.0-30.0); Chloride 95 mmol/L (98-107); Creatinine,Serum 0.60 mg/dl (0.52-1.04); Estimated Glomerular Filt Rate 97 ml/min (>60); GFR (African American) 117 ML/MIN (>60); Globulin 3.7 g/dL (1.3-3.2); Glucose 115 mg/dl (74-100); Magnesium 2.0 mg/dl (1.6-2.3); Phosphorous 4.0 mg/dl (2.5-4.5); Potassium 4.1 mmoL/L (3.5-5.1); Sodium 133 mmol/L (136-145); Total Protein,Serum 7.4 g/dl (6.3-8.2)
[2025-09-14 21:30] VITALS: BP 123/51; PULSE 82; RESP 32; O2SAT 87
[2025-09-14 21:32] LABS: NT Pro Brain Natriuretic Pep. 8210 pg/mL (0-450); Troponin I 0.15 ng/ml (0.00-0.034)
[2025-09-14 21:33] VITALS: O2SAT 91
[2025-09-14 22:00] VITALS: BP 131/56; PULSE 80; RESP 22; O2SAT 98
--- NOTE | 2025-09-14 23:32 | PC.NURSE ---
Report called to MILLICENT Bautista
--- NOTE | 2025-09-14 23:35 | P.HP_ITS ---
<Statement entered by Krishna Dougherty MD - 09/15/25 14:15> Agree with the plan of care as outlined by the LIFE COACH. History of Present Illness *Admission Date: 09/14/25 *Reason for visit:: Shortness of breath *History of present illness: This is a 75-year-old female who has a past medical history significant for coronary artery disease, prior smoking, obstructive sleep apnea CPAP dependent) COPD, sleep apnea, osteoporosis, small cell lung cancer, Atarax, hyperlipidemia, hypertension, renal artery stenosis, bronchitis, and iron deficiency anemia who presents with a chief complaint of shortness of breath. Due to patient's symptoms, she presented to the emergency room for evaluation. While in the emergency room, ER provider states that patient's oxygen saturation on her home O2 regiment was 85%. She was placed on 4 L; moreover, patient did have an elevated BNP and her troponin was elevated. EKG revealed a sinus rhythm QTc of 496, normal axis, biphasic T waves in the lateral/anterior-no STEMI. As a result, patient has been admitted for further management. During my evaluation of the patient, patient voices having increasing shortness of air over the past 2 to 3 days. She was recently treated with radiation for her small cell lung cancer. Review of patient's oncologist (Dr. Corcoran) reports that he is starting patient on durvalumab because she is not a chemotherapy candidate. Patient had no metastasis noted on any additional imaging. Per my independent evaluation, CTA of the chest shows chronic changes and does not have any findings consistent with pleural effusions-is pending final read by the radiologist. She is currently denying any chest pain, lightheadedness, dizziness, orthopnea, nausea, vomiting, or diarrhea. Additional pertinent vitals obtained include red blood cell count of 3.05, hemoglobin 9.1, hematocrit 28.5, pCO2 63, sodium 133, chloride of 95, carbon dioxide of 35, blood glucose 115, troponin 0.15, and BNP of 8210. [facility] Disclaimer: The information contained in this section may have been updated after the patient was seen, as this information can be updated by other users. Medical History History of femur fracture CAD (coronary artery disease) Abnormal CT scan of lung Smoking greater than 30 pack years Lung nodule COPD mixed type Sleep apnea COPD (chronic obstructive pulmonary disease) Menopause Osteoporosis Osteoarthritis Carpal tunnel syndrome History of cataract Hyperlipidemia Hypertension Tobacco abuse Currently working on decreasing sugars per day, (average 15 at this time) Renal artery stenosis Suspected secondary hypertension Edema of left lower extremity Pain in left lower leg Claudication Surgical History History of back surgery History of tubal ligation History of intravascular stent placement History of right hip replacement History of colonoscopy History of carpal tunnel release History of left hip replacement Family History Brother Family history of myocardial infarction Family history of diabetes mellitus type II Mother Family history of myocardial infarction Other Family history of stroke Social History Smoking Status: Former smoker tobacco type: cigarettes packs per day: 1 smoking status start date: 1 pack per week alcohol intake: never substance use type: denies use current occupational status: retired Travel in the last 8 weeks?: None household members: spouse housing: house current occupational exposures/hazards: No caffeine: No Have you lived/traveled outside US in past 30 days?: No Contact w/someone who lives/traveled outside US past 30 days?: No Exposure to someone with infectious disease in past 14 days?: No Do you have a fever (greater than 100.4 F or 38 C)?: No Have you tested positive for COVID-19?: No Exposed to someone with COVID-19 in past 14 days?: No Do you have a sore throat?: No Do you have a cough?: No Do you have any weakness?: No Do you have any diarrhea?: No Are you experiencing any unusual bleeding?: No Do you have any muscle aches/pain?: No Do you have any abdominal pain?: No Are you experiencing loss of taste or smell?: No Other Medical History Have you received the Flu Vaccine for this season: No Have you received the Pneumonia Vaccine: Yes Review of Systems Review of Systems Review of systems:: pertinent systems reviewed and negative unless documented below Constitutional Constitutional: Reports poor appetite Eyes Eyes: Reports system reviewed and no additional complaints, except as documented ENT Ears, Nose, Mouth, and Throat: Reports system reviewed and no additional complaints, except as documented *Cardiovascular Cardiovascular: Reports dyspnea *Respiratory Respiratory: Reports dyspnea *Gastrointestinal Gastrointestinal: Reports system reviewed and no additional complaints, except as documented *Genitourinary Genitourinary: Reports difficulty voiding *Musculoskeletal Musculoskeletal: Reports system reviewed and no additional complaints, except as documented Integumentary/Breasts Skin/Breast: Reports system reviewed and no additional complaints, except as documented *Neurologic Neurologic: Reports system reviewed and no additional complaints, except as documented Psychiatric Psychiatric: Reports system reviewed and no additional complaints, except as documented Endocrine Endocrine: Reports system reviewed and no additional complaints, except as do cumented Hematologic/Lymphatic Hematologic/Lymphatic: Reports system reviewed and no additional complaints, except as documented Allergic/Immunologic Allergic/Immunologic: Reports system reviewed and no additional complaints, except as documented Meds Home Medications and Allergies Home Medications ?Medication ?Instructions ?Recorded ?Confirmed ?Type aspirin 81 mg tablet,delayed 81 mg PO DAILY heart heal th 03/20/21 09/05/25 History release (Adult Low Dose Aspirin) calcium 600 mg (as 1 tab PO DAILY Supplement 09/05/25 History carbonate)-vitamin D3 5 mcg (200 unit) tablet (Calcium 600 + D(3)) fluticasone propionate 50 2 spray intranasal DAILY all ergies 03/20/21 09/05/25 History mcg/actuation nasal spray,suspension clopidogrel 75 mg tablet 75 mg PO DAILY Blood thinner 09/14/22 09/05/25 History alendronate 70 mg tablet 70 mg PO WEEKLY . 02/17/23 1 History metoprolol succinate 100 mg 100 mg PO DAILY BLOOD PRES SURE 03/17/23 09/05/25 History tablet,extended release 24 hr albuterol sulfate 90 mcg/actuation 2 puff inhalation Q 6H PRN 03/15/24 09/05/25 History aerosol inhaler Shortness Of Breath amlodipine 10 mg tablet 10 mg PO DAILY 03/15/2408/09 History furosemide 40 mg tablet 20 mg PO DAILY 04/17/2508/09 History atorvastatin 40 mg tablet 40 mg PO DAILY 05/15/2508/09 History benazepril 40 mg tablet 40 mg PO DAILY 05/15/2508/09 History duloxetine 60 mg capsule,delayed 60 mg PO DAILY 09/05/25 History release ipratropium 0.5 mg-albuterol 3 mg 3 ml inhalation Q8H 3 months #540 08/17/25 09/05/25 Rx (2.5 mg base)/3 mL nebulization mL soln megestrol 400 mg/10 mL (40 mg/mL) 800 mg PO DAILY 08/0809/05/25 History oral suspension prednisone 20 mg tablet 20 mg PO DAILY 08/17/2508/09 History New Prescriptions to Start Prescriptions: Allergies Allergy/AdvReac Type Severity Reaction Status Date / Time cefdinir (From Omnicef) Allergy Intermediate disoriented Verified 09/05/25 13:17 ibandronate sodium (From Allergy Intermediate BP high & Verified 09/05/25 13:17 Boniva) low moxifloxacin (From Avelox) Allergy Unknown Unknown Verified 09/05/25 13:17 allergy reaction Exam Data for Last 24 hours Vital signs and Labs for Last 24 Hours: Temp Pulse Resp BP Pulse Ox O2 Del Method O2 Flow Rate 98.4 F 80 22 131/56 L 98 Nasal Cannula 4 09/14/25 20:50 09/14/25 22:00 09/14/25 22:00 09/14/25 22:00 09/14/25 22:00 09/14/25 22:00 09/14/25 22:00 Laboratory Results - last 24 hr 09/14/25 21:00: WBC 7.0, RBC 3.05 L, Hgb 9.1 L, Hct 28.5 L, MCV 93.4, MCH 29.8, MCHC 31.9, RDW 13.8, Plt Count 418, MPV 8.8, Neut % (Auto) 75.8, Lymph % (Auto) 8.8 L, Ross % (Auto) 11.7 H, Eos % (Auto) 2.1, Baso % (Auto) 0.6, Neut # (Auto) 5.3, Lymph # (Auto) 0.6 L, Ross # (Auto) 0.8, Eos # (Auto) 0.2, Baso # (Auto) 0.0, VBG pH 7.32, VBG pCO2 63.1 H, VBG pO2 33.0, VBG HCO3 31.6 H, VBG Total CO2 33.6 H, VBG O2 Saturation 56.1, VBG Base Excess 5.5 H, VBG Lactic Acid 1.6, Sodium 133 L, Potassium 4.1, Chloride 95 L, Carbon Dioxide 35 H, Anion Gap 7.1, BUN 15, Creatinine 0.60, Estimated GFR 97, Est GFR ( Amer) 117, Glucose 115 H, Calcium 9.8, Phosphorus 4.0, Magnesium 2.0, Total Bilirubin 0.4, AST 24, ALT 23, Alkaline Phosphatase 53, Troponin I 0.15 H, NT-Pro-B Natriuret Pep 8210 H, Total Protein 7.4, Albumin 3.7, Globulin 3.7 H, Albumin/Globulin Ratio 1.0 L I & O for Last 24 hours: Intake & Output 09/11/25 09/12/25 09/13/25 09/14/25 23:59 23:59 23:59 23:59 Weight 54.431 kg Constitutional Constitutional: no acute distress, thin and chronically ill appearing *Routine HEENT Exam Head: Present normocephalic and atraumatic Eye: Present EOMI, PERRL and normal accommodation ENT: Present mucous membranes moist *Routine Neck Exam Neck: Present supple, full ROM and trachea midline *Routine Respiratory Exam Respiratory: Present decreased breath sounds, diminished air movement, normal respiratory effort, able to speak in complete sentences and symmetric chest movement *Routine Cardiovascular Exam Cardiovascular: Present RRR, Normal S1 and Normal S2 *Routine Abdominal Exam Abdominal: Present soft and normoactive bowel sounds *Routine Rectal Exam Rectal:: deferred *Routine Genitalia Exam Genitalia:: deferred *Routine Extremities Exam Extremities: Present full ROM, pulses intact and normal capillary refill Routine Back/Spine/Pelvis Exam Back/Spine: Present full ROM *Routine Skin Exam Skin: Present intact, dry and warm *Routine Neurological Exam Neurological: Present alert, oriented X3 and CN II-XII intact Routine Psychiatric Exam Psychiatric: Present normal affect, normal thought process, cooperative, good insight and good judgment H&P: Result Impressions 75-year-old female presents with shortness of air has an elevated troponin without any STEMI possible NSTEMI and elevated BNP Assessment and Plan *Assessment and plan (1) Acute on chronic respiratory failure with hypoxia and hypercapnia: Status: Acute Category: Medical Code(s): J96.21 - Acute and chronic respiratory failure with hypoxia; J96.22 - Acute and chronic respiratory failure with hypercapnia (2) Anemia: Status: Acute Qualifiers: Anemia type: unspecified type Qualified Code(s): D64.9 - Anemia, unspecified Category: Medical Code(s): D64.9 - Anemia, unspecified (3) Elevated troponin: Status: Acute Category: Medical Code(s): R79.89 - Other specified abnormal findings of blood chemistry (4) Elevated brain natriuretic peptide (BNP) level: Status: Acute Category: Medical Code(s): R79.89 - Other specified abnormal findings of blood chemistry (5) Lung cancer: Status: Acute Qualifiers: Laterality: unspecified laterality Lung location: upper lobe of lung Qualified Code(s): C34.10 - Malignant neoplasm of upper lobe, unspecified bronchus or lung Category: Medical Code(s): C34.90 - Malignant neoplasm of unspecified part of unspecified bronchus or lung Plan Assessment: Acute on chronic hypoxic hypercapnic respiratory failure Elevated BNP Elevated troponin - Will place patient on BiPAP for nocturnal use with inspiratory pressure of 10 expiratory pressure of 5 maintain oxygen saturation rating 89% - Will give 40 mg Lasix IV x 1 - Will obtain 2D echo - Will trend patient's troponins - Obtain station helper consult in the a.m. Normocytic normochromic anemia - May be due to chronic illness - Patient's hemoglobin is stable - Will consider anemia profile patient has a decrease in blood count during this admission Small cell lung cancer - Appears to be stable Plan: Admit patient to the MedSurg unit on telemetry Activity as tolerated Electrolyte management Measure weight daily Supplemental oxygen to maintain oxygen saturation greater than 89% Saline lock Vital signs every 4 hours Cardiac diet CBC/BMP daily Obtain a respiratory panel 5 mg Milnor p.o. every 4 hours PMR pain DuoNebs every 6 hours 21 mg nicotine patch daily 4 mg Zofran IV push every 8 hours for nausea bowel Blood cultures x 2 Full code I will discussed this case with attending physician Dr. Dougherty and I look forward to more input
[2025-09-14] MEDS: FUROSEMIDE 40MG/4ML VIAL 40 MG IV (23:43)
--- NOTE | 2025-09-14 23:43 | PC.NURSE ---
Patient bladder scanned, approx 261 scanned in bladder at this time.
[2025-09-14 23:51] VITALS: BP 111/57; PULSE 79; RESP 17; TEMP 36.7; O2SAT 96
--- NOTE | 2025-09-14 23:56 | PC.NURSE ---
Patient arrived to floor via stretcher from ED at 23:51.
[2025-09-15] VITALS (13 sets, daily range): BP systolic 118–147; BP diastolic 62–76; PULSE 68–100; RESP 14–23; TEMP 36.4–37; O2SAT 90–97; BMI 22.1; BMI 21.7
[2025-09-15] MEDS: IPRATROPIUM/ALBUTEROL 3 ML NEB IH ×5 (00:14→23:10)
[2025-09-15 01:15] LABS: Coronavirus 19, PCR Not Detected (NotDetected); Influenza A, PCR Not Detected (NotDetected); Influenza B, PCR Not Detected (NotDetected)
--- NOTE | 2025-09-15 01:15 | PC.NURSE ---
Addendum entered by Lily Stone RN 09/15/25 04:35: Patient was placed onto the BiPAP at 01:30. She was observed to be resting in bed with eyes closed, respirations even and unlabored, and no apparent distress since placement of the oxygen device. No reports of worsening shortness of breath reported. Oxygen saturations > 90%. Mini respiratory panel collected, resulted (-) this shift. No complaints of pain, nausea, headache, dizziness, etc. made this shift. Physical assessment performed as appropriately for this shift (see nursing shift biophysical intervention). Patient gets up with assistance x1 to pivot to the bedside commode for elimination needs. No acute changes noted thus far. Call light is within reach. Original Note: During admission assessment, the patient stated that she was unsure of what medications she takes at home. Patient is also feeling very tired at this time for recollection. Home medication reconciliation was completed to the best of my ability using the patient's external medication history.
[2025-09-15 01:23] LABS: Microscopic, Urine URINE MICROSCOPIC (MICROSCOPIC)
[2025-09-15 01:25] LABS: Bilirubin,Urine Negative (Negative); Color,Urine YELLOW (Yellow); Glucose,Urine (UA) Negative (Negative); Ketones,Urine Negative (Negative); Leukocyte Esterase,Urine Negative (Negative); PH,Urine 6.0 (5.0-8.5); Protein,Urine Negative (Negative); Specific Gravity, Urine 1.015 (1.005-1.030); Urobilinogen,Urine 0.2 EU/dl (0.2)
[2025-09-15 01:46] LABS: Troponin I 0.15 ng/ml (0.00-0.034)
[2025-09-15 07:32] LABS: Hematocrit 27.4 % (37.0-47.0); Hemoglobin 8.7 g/dL (12.2-16.2); Immature Granulocytes % 0.6 %; Mean Corpuscular HGB Conc 31.8 g/dL (31.8-35.4); Mean Corpuscular Hemoglobin 29.2 pg (27.0-31.2); Mean Corpuscular Volume 91.9 fl (81-99); Nucleated Red Blood Cells % 0 %; Platelet Count 437 K/mm3 (142-424); Red Blood Count 2.98 M/mm3 (4.20-5.40); Red Cell Distribution Width-SD 46.4 fL; White Blood Count 6.3 K/mm3 (4.8-10.8)
[2025-09-15 07:42] LABS: Anion Gap 6.7 mEq/L (5-15); Blood Urea Nitrogen 13 mg/dl (7-17); Calcium 9.7 mg/dl (8.4-10.2); Carbon Dioxide 37 mmol/L (22.0-30.0); Chloride 93 mmol/L (98-107); Creatinine Clearance Estimated 40 mL/min (50-200); Creatinine,Serum 0.70 mg/dl (0.52-1.04); Estimated Glomerular Filt Rate 81 ml/min (>60); GFR (African American) 98 ML/MIN (>60); Glucose 91 mg/dl (74-100); Potassium 3.7 mmoL/L (3.5-5.1); Sodium 133 mmol/L (136-145)
[2025-09-15 08:49] LABS: Troponin I 0.15 ng/ml (0.00-0.034)
[2025-09-15] MEDS: ASPIRIN EC 81MG TABLET 81 MG PO (08:53)
[2025-09-15 09:19] LABS: RBC Morphology Normal; Total Cells Counted 100
--- NOTE | 2025-09-15 09:47 | HMH.PHAINT1 ---
Pharmacy Intervention Comments: MEDICATION RECONCILIATION COMPLETED ON PATIENT USING EXTERNAL FILL HISTORY FROM PHARMACY. -CLEVE DOE, NIDHID
[2025-09-15] MEDS: UMECLIDINIUM/VILANTEROL 62.5/25MCG INHALER 1 PUFF IH (11:14)
[2025-09-15] MEDS: FUROSEMIDE 40MG/4ML VIAL 40 MG IV (11:14)
--- NOTE | 2025-09-15 16:06 | PC.NURSE ---
pt resting supine in bed with family at bedside. requiring 3LNC to maintain sats >90%. no complaints of pain. intermittent nonproductive cough. lovenox for VTE. able to use bedside commode with assistance. no needs at this time. call light within reach.
--- NOTE | 2025-09-15 20:03 | EXP.EVENT.NO ---
Patient asking for something for bowel movement. Gave lactulose 20 mg p.o. x 1
--- OUTSIDE RECORDS SUMMARY | 2025-09-15 20:34 | XMS_ITS | Data Portability ---
Author Organization [facility] Address [address] [place] [address] Care Team Providers Care Loft Worker Pile Driving Name Role Phone MAXIMILIANO CORCORAN Primary Care Provider Assessment No assessment recorded. Plan of Treatment Reminders Order Date Submit Date Provider Last Modified By Organization Details Last Modified Time Details Appointments None record ed. Lab None record ed. Referral None record ed. Procedures None record ed. Surgeries None record ed. Imaging None record ed. Medication Orders None record ed. Patient TargetsNo targets recorded. Patient InstructionsNo instructions recorded. Reason for Referral None Reported. Procedures Surgical History Date Name Laterality Status Provider Name and Address Organization Details Recorded Time 08/25/20 24 Destruction Premalignant Lesion(s) completed [facility] 08/25/2024 10:19:57 08/25/20 Destruction BN Lesions completed [facility] 08/25/2024 10:20:02 cardiac catheterization completed [facility] 05/01/2025 15:02:04 Imaging Results None recorded. [...] ICD10 Code Diagnosis IMO Codes Diagnosis Note [id number] LISSETT Mina, KELLY DAK [facility] [address] [place] [address] 08/25/2024 09:55:48 08/25/2024 10:21:29 Multiple benign melanocytic nevi [id number] D22.5 - Benign moles seen on exam [...] changing or worrisome lesions Seborrheic keratosis 394 612140 L82.1 - Benign overgrowth s of skin - Hereditary Senile angioma 1806015 I 78.1 - Benign blood vessel growths - Hereditary Solar lentigo [id number] L 81.4 - Benign brown spots - Sun-induce d Actinic keratosis 010937 007 L57.0 Actinic keratoses are precancero us lesions that may progress to squamous cell carcinoma if untreated. UV light and genetics may increase risk. Treated lesions should blister, scab over, and heal within a few weeks. If treated lesion(s) does not resolve within 1-2 months, patient agrees to follow up for re-evaluat ion. Inflamed s eborrheic keratosis [id number] L82.0 L53.8 Counseled on benign nature. Pt elected to treat with liquid nitrogen due to painful irritation . May recur or persist after treatment. Discolorat ion or scarring is possible. [id number] LISSETT Mina, KELLY DAK [place] [address] [place] [address] 05/01/2025 13:58:03 05/01/2025 15:27:10 Multiple benign melanocytic nevi [id number] D22.5 - Benign moles seen on exam [...] changing or worrisome lesions Seborrheic keratosis 394 233109 L82.1 - Benign overgrowth s of skin- Hereditary No signs of malignancy or precancero us change today- Rec no treatment if not bothersome Solar lentigo [id number] L 81.4 - Benign brown spots - Sun-induce d Health Concerns Section Related Observation LastModified by Organization Detai ls LastModified Time None Recorded Concern Status LastModified by Organization Details LastModified Time None Recorded Advance Directives Directive None Recorded Payers Insurance Date Sequence Insurance Name Policy Number Policy Baxter Covered Member ID Baxter Member ID Guarantor Name 08/24/2025 1 [place]ICARE[place] Antonia Pickens [id number] Antonia Pickens 08/24/2025 2 [employer] [place] (MEDICARE SUPPLEMENT) Antonia Pickens [id number] Antonia Pickens Notes Date Note Type Note Provider Name and Address Organization Details Recorded Time 08/25/2024 text/html Skin LesionRepor arabella by PatientI have some spots on my face my PCP wants checkedROS as noted in the HPI LISSETT MAY, KELLY [address] [place], [address], [facility] 08/28/2024 07:32:27 05/01/2025 text/html I am here for a f/u on AK'sLocation: R eye.Reports: Pt reports her PCP recommended to come back to check AK's.LV: 08/31Pt is accompanied by partner. LISSETT MAY, YARN INSPECTOR [address] [place], [address], [facility] 05/02/2025 08:07:12 OBGyn Episode No OBEpisode recorded.
--- OUTSIDE RECORDS SUMMARY | 2025-09-15 20:34 | XMS_ITS ---
Care Plan - [facility] Created on: September 15, 2025 Antonia Pickens : 1950 Sex: Female Author Organization [facility] Address [address] [place] [address] Phone Care Team Providers Care Chairman And Chief Executive Officer Name Role Phone Rosemarie SINGH, Ezequiel Dubois Unavailable [phone] JEWELL SINGH, MAGO Unavailable [phone]
--- OUTSIDE RECORDS SUMMARY | 2025-09-15 20:34 | XMS_ITS | Patient Health Record ---
Author Organization [facility] Address [address] [facility] [address] [place] [id number] Care Team Providers Care Fusion Juncture Grinder Name Role Phone Keeley Betancourt Primary Care [...] Interpretation: Performing Lab: Notes/Report: Test performed by [facility] , [address], [place] [address] Gamal Haywood MD, Senior Accountant Analyst CLIA: [id number] Vitamin B12 130 493-7686 pg/mL P-Comprehensive Metabolic Pa yoseph (CMP) Reviewed date:02/20/2025 09:44:27 PM Interpretation: Performing Lab: Notes/Report: Test performed by [facility] [address] [place] [address] , [place] [address] Gamal Haywood MD, Senior Accountant Analyst CLIA: [id number] Sodium 137 135-145 mmol/L Potassium 3.7 3.5-5.3 [...] Interpretation: Performing Lab: Notes/Report: Test performed by [facility] [address] [place] [address] , [facility] [place] [address] Gamal Haywood MD, Senior Accountant Analyst CLIA: [id number] Iron 140 37-145 ug/dL P-Lipid Panel Reviewed date:02/20/2025 09:44:27 PM Interpretation: Performing Lab: Notes/Report: Test performed by [facility] [employer] [address] [place] [address] , [facility] [place] [address] Gamal Haywood MD, Senior Accountant Analyst CLIA: [id number] Cholesterol 163 <200 mg/dL Triglycerides 106 <150 [...] ATPIII guidelines LDL/HDL Ratio 1.6 <3.3 Ratio ____ LDL Cholesterol Patient History ____ Test Date: 03/02/2024 LDL Results: 106 Units: mg/dL % Change: +20% ---- Test Date: 08/24/2024 LDL Results: 90 Units: mg/dL % Change: -15% ---- Test Date: 02/15/2025 LDL Results: 88 Units: mg/dL % Change: -2% ____ P-TSH Reviewed date:02/20/2025 09:44:27 PM Interpretation: Performing Lab: Notes/Report: Test performed by [facility] [employer], [facility] [address] [place] [address] Jose Juan [address]agen[address], [place] [address] Gamal Haywood MD, Senior Accountant Analyst CLIA: [id number] TSH 2.17 0.43-5.25 mU/L P-Microalbumin/Creatinine, R andom Urine Sample Reviewed date:02/20/2025 09:44:27 PM Interpretation: Performing Lab: Notes/Report: Test performed by [employer], [facility] [address] [place] [address] , [address], [place] [address] Gamal Haywood MD, Senior Accountant Analyst CLIA: [id number] Albumin/Creatinine Ratio, Urine 18 0-30 ug/mg Microalbumin, Urine, Random 1.4 Creatinine, Urine 77.8 CBC Fingerstick (in house) Reviewed date:10/03/2024 02:54:43 [...] - 38 plat 318 100 - 400 CT Scan : Chest, low dose Reviewed date:05/10/2025 08:10:22 AM Interpretation:Abnormal Performing Lab: Notes/Report: Abnormal Urinalysis - Inhouse Reviewed date:08/22/2025 11:35:09 AM [...] Interpretation:normal Performing Lab: Notes/Report: Test performed by [facility] [address] [place] [address] , [address], [place] [address] Gamal Haywood MD, Senior Accountant Analyst CLIA: [id number] Sodium 135 135-145 mmol/L Potassium 4.8 3.5-5.3 [...] Interpretation:Abnormal Performing Lab: Notes/Report: Test performed by [facility] [address] [place] [address] , [address], [place] [address] Gamal Haywood MD, Senior Accountant Analyst CLIA: [id number] Specimen Source Urine - Void Culture, Urine See Below See Microbiol ogy Report Pseudomonas aeruginosa 50,000-100,000 CF U/ml Pseudomonas aeruginosa Non-viable for sensitivities P-Lipid Panel Reviewed date:08/22/2025 11:35:09 AM Interpretation:LDL 76 Performing Lab: Notes/Report: Test performed by [facility] [employer] [address] [place] [address] , [address], [place] [address] Gamal Haywood MD, Senior Accountant Analyst CLIA: [id number] Lipid Panel Footnote See Below *Based on optimal reference values. Please refer to the DOS for additional information regarding diagnostic lipid reference ranges, patient management based on the recently updated lipid guidelines ([place] [employer]/[place] [employer] Task Force on Clinical Practice [...] 76 Units: mg/dL % Change: -13% ____ Reason For Referral Reason Dr. José Miguel [place] for PAD, carotid disease; dilated left atrium Diagnosis 1 PAD (peripheral beryl ry disease) (I73.9) [facility] Referring Provider First Name Keeley Gunn Referring Provider Last Name Serafin [facility]erred [facility] Cardiology, . Referred Provider Specialty Cardiovascul ar Disease General Notes Nanci James 2024 10:46:57 AM > faxed to [facility] as he does not have a [facility] number Referral Priority Routine Reason Lung mass on chest C T Diagnosis [address] (R 93.89) [facility] Referring Provider First Name Keeley Gunn Referring Provider Last Name Serafin [facility] OP Referred Provider Bartolome Brannon Referred Address [address] [place] [address] [id number], Referred Provider Specialty Pulmonary Di seases General Notes Nanci James 2024 08:41:46 AM > faxed to [facility] Pulmonology, Nanci James 05/17/2025 03:40:56 PM > [...] a day; Duration: 30 day(s) 11/28/2020 Active Alendronate Sodium 70 MG 1 tab(s) orally once a week; Duration: 90 days Active Metoprolol Succinate 100 MG 1 tab(s) ora lly once a day Active Atorvastatin Calcium 40 MG 1 tablet at b edtime Orally Once a day; Duration: 90 days Active amLODIPine [...] r milk Orally Once a day Active Ferrous Sulfate 325 (65 Fe) MG 1 tablet Orally once daily 08/28/2024 Active Calcium + Vitamin D3 600-5 MG-MCG 1 tab(s) orally TID Active Nabumetone 500 MG 1 tablet Orally Twic e a day; Duration: 30 day(s) Active Flonase Allergy Relief 50 MCG/ACT 2 spray(s) intranasally once a day Active July Allergy 180 MG 1 tab(s) orally o nce a day 02/21/2021 Active Benazepril HCl 40 MG 1 tab(s) orally onc e a day Active Vitamin D3 25 MCG (1000 UT) 1 capsule or ally once a day Active Albuterol Sulfate HFA 108 (90 Base) MCG/ACT INHALE 2 PUFFS BY MOUTH EVERY 6 HOURS NEEDED; Duration: 25 Active traMADol HCl 50 MG 1-2 tab(s) Orally q6h prn 06/20 Active Atorvastatin Calcium 40 MG TAKE 1 TABLET BY MOUTH ONCE DAILY AT BEDTIME; Duration: 90 Active Immunizations Vaccine Route Administration Date Status Comme nts COVID 19 Moderna IM Intramuscular 01/02/2021 Administered COVID 19 Moderna IM Intramuscular 01/30/2021 Administered COVID 19 Moderna Unknown 09/11/2021 Administered COVID 19 Moderna Unknown 06/18/2022 Administered Fluzone High Dose (65yr and older) [...] (65yr and older) IM Intramuscular 08/24/2024 Administered Fluzone High Dose (65yr and older) IM Intramuscular 08/21/2025 Administered PNEUMOVAX 23 VACCINE IM Intramuscular 03/09/2017 Administe red Prevnar (PCV13) IM Intramuscular 03/12/2015 Administered Prevnar (PCV13) IM Intramuscular 08/26/2015 Administered Prevnar (PCV20) IM Intramuscular 08/26/2023 Administered Shingrix Unknown 02/25/2018 Pending Tetanus Tdap-Adacel (over 7yrs) IM Intramuscular 06/24/2012 Administered Tetanus Tdap-Adacel (over 7yrs) IM Intramuscular 08/26/2023 Administered tuberculin (ppd) ID Intradermal 07/27/2005 Administered tuberculin (ppd) IM Intramuscular 05/28/2008 Administered Problems Problem Type SNOMED Code ICD Code Onset Dates Problem Status W/U Status Risk Notes Problem Vitamin D deficiency (14288707) Vitamin D deficiency (E55.9) Active confirmed Problem Vitamin B12 deficiency (692019697) Vitamin B12 deficiency (E53.8) Active confirmed Problem Anemia (528337426) Anemia (D64.9) Active confirmed Problem Essential hypertension (76229834) Essential hypertension (I10) Active confirmed Problem Abnormal mammogram (429045766) Abnormal mammogram (R92.8) Active confirmed Problem Seasonal allergy (741114947) Seasonal allergies (J30.2) Active confirmed Problem Iron deficiency anemia (22376546) Iron deficiency anemia (D50.9) Active confirmed Problem Primary osteoarthritis (542415723) Primary osteoarthritis involving multiple joints (M15.0) Active confirmed Problem COPD - Chronic obstructive pulmonary disease (23915833) Chronic obstructive pulmonary disease, unspecified COPD type (J44.9) Active confirmed Problem Obstructive sleep apnea syndrome (79575568) FRANSISCO (obstructive sleep apnea) (G47.33) Active confirmed Problem Localized, primary osteoarthritis of the pelvic region and thigh (724764467) 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) Active confirmed Problem Tobacco user (977189084) Cigarette nicotine dependence without complication (F17.210) Active confirmed Problem Dyslipidemia (907459494) Dyslipidemia (E78.5) Active confirmed Problem Peripheral vascular disease (390870756) PAD (peripheral artery disease) (I73.9) Active confirmed Problem Tobacco use (949821094) Tobacco use disorder (F17.200) Active confirmed Problem Age-related osteoporosis (744824536) Osteoporosis without current pathological fracture, unspecified osteoporosis type (M81.0) Active confirmed Problem Osteoporosis (01576495) Osteoporosis, unspecified (M81.0) Active confirmed Problem Atelectasis (01023822) Atelectasis of both lungs (J98.11) Active confirmed Problem Ex-smoker (finding) (4696400) History of cigarette smoking (Z87.891) Active confirmed Problem Left carotid artery occlusion (064075779447194) Left carotid stenosis (I65.22) Active confirmed Problem Radiology result abnormal (923357762) Abnormal chest CT (R93.89) Active confirmed Problem Small cell lung cancer (103778029) Small cell lung cancer (C34.90) Active confirmed Problem S/P hip hemiarthroplasty (Z96.649) Active confirmed Vital Signs Heart Rate 42 /min 08/21/2025 Blood pressure diastolic 60 mm Hg 08/21/2025 Height 63.50 in 08/21/2025 Blood pressure systolic 120 mm Hg 08/21/2025 Weight 120 lbs 08/21/2025 BMI 20.92 kg/m2 08/21/2025 Encounters Encounter Location Date Provider Diagnosis [facility] [address] [place] [id number] 10/03/2024 Keeley Betancourt Iron deficiency anem ia D50.9 [facility] [address] [facility] [address] [place], [place] [id number] 02/15/2025 Keeley Betancourt Adult general medica l [...] in adult Z68.1 and Osteoporosis, unspecified M81.0 [facility] [address] [facility] [address] [place] [id number] 04/12/2025 R Luis A Betancourt Tobacco use disorder F17.200 ; Chronic obstructive pulmonary disease, unspecified COPD type J44.9 ; Atelectasis of both lungs J98.11 and FRANSISCO (obstructive sleep apnea) G47.33 [facility] [address] [facility] [address] [place] [id number] 08/21/2025 R Luis A Betancourt Essential hypertensi on I10 ; Chronic [...] immunization Z23 and BMI 20.0-20.9, adult Z68.20 [facility] [address] [facility] [address] [place] [id number] 09/03/2025 R Luis A Betancourt [place] [address] [facility] [address] [place] [id number] 02/20/2025 R Luis A Betancourt [facility] [address] [facility] [address] [place] [id number] 05/07/2025 R Luis A Betancourt Abnormal chest CT R9 3.89 [facility] [address] [facility] [address] [place] [id number] 08/22/2025 R Luis A [facility]ancourt [facility] [address] [place] [id number] 08/27/2025 Keeley Betancourt [facility] [address] [place] [id number] 09/04/2025 Keeley Betancourt Dyslipidemia E78.5 Assessments Encounter Date Diagnosis (ICD Code) Assessment [...] 05/07/[address] (ICD-10 - R93.89) 08/21/2025 Essential hypertension (ICD-10 - I10) 08/21/2025 Chronic obstructive pulmonary disease, unspecified COPD type (ICD-10 - J44.9) 09/04/2025 Dyslipidemia (ICD-10 - E78.5) 08/21/2025 Small cell lung cancer (ICD-10 - C34.90) Continue follow-up with Dr. Brannon, Dr. Rojas, and radiation oncology in [place]. 04/12/2025 Atelectasis of both lungs (ICD-10 - J98.11) 02/15/2025 Dyslipidemia (ICD-10 - E78.5) 02/15/2025 Chronic obstructive pulmonary disease, unspecified COPD type (ICD-10 - J44.9) 04/12/2025 FRANSISCO (obstructive sleep apnea) (ICD-10 - G47.33) 08/21/2025 Dyslipidemia (ICD-10 - E78.5) 08/21/2025 Primary osteoarthritis involving multiple joints (ICD-10 - M15.0) 02/15/2025 Primary osteoarthritis involving multiple joints (ICD-10 - M15.0) 02/15/2025 FRANSISCO (obstructive sleep apnea) (ICD-10 - G47.33) 08/21/2025 FRANSISCO (obstructive sleep apnea) (ICD-10 - G47.33) 08/21/2025 PAD (peripheral artery disease) (ICD-10 - I73.9) 02/15/2025 PAD (peripheral artery disease) (ICD-10 - I73.9) 02/15/2025 Osteoporosis without current pathological fracture, unspecified osteoporosis type (ICD-10 - M81.0) 08/21/2025 Seasonal allergies (ICD-10 - J30.2) 08/21/2025 Vitamin D deficiency (ICD-10 - E55.9) 02/15/2025 Seasonal allergies (ICD-10 - J30.2) 02/15/2025 Vitamin D deficiency (ICD-10 - E55.9) 08/21/2025 Tobacco use disorder (ICD-10 - F17.200) 08/21/2025 Anemia (ICD-10 - D64.9) 02/15/2025 Tobacco use disorder (ICD-10 - F17.200) 02/15/2025 Anemia (ICD-10 - D64.9) 08/21/2025 Dysuria (ICD-10 - R30.0) 08/21/2025 History of cigarette smoking (ICD-10 - Z87.891) 02/15/2025 History of cigarette smoking (ICD-10 - Z87.891) 02/15/2025 Vitamin B12 deficiency (ICD-10 - E53.8) 08/21/2025 Vitamin B12 deficiency (ICD-10 - E53.8) 08/21/2025 Osteoporosis, unspecified (ICD-10 - M81.0) 02/15/2025 Weight loss, unintentional (ICD-10 - R63.4) Check labs. May need referral for EGD 02/15/2025 Early satiety (ICD-10 - R68.81) 08/21/2025 Encounter for immunization (ICD-10 - Z23) 08/21/2025 BMI 20.0-20.9, adult (ICD-10 - Z68.20) 02/15/2025 Body mass index (BMI) of 19.0 to 19.9 in adult (ICD-10 - Z68.1) 02/15/2025 Osteoporosis, unspecified (ICD-10 - M81.0) Plan Of Treatment Next Appt Details Provider Name:Keeley Snyder et, 02/19/2026 10:45:00 AM, [address], [address], [place], [id number], Insurance Providers Payer Name Payer Address Payer Phone Subscriber Number Group Number Insured Name Patient Relationship to Insured Coverage Start Date Coverage End Date MEDICARE PART B [address] [address] [place] [id number] NIHARIKA NARVAEZ Self - [place] [address] [id number] NIHARIKA NARVAEZ Self - patient is the insured Medications Administered Medication Instructions Date of Administration Dosage Notes Depo- Medrol 40 mg/ml 09/27/2015 1 mL Depo- Medrol 40 mg/ml 06/02/2016 1.5 mL Dexamethasone 08/24/2006 1 mL Dexamethasone 02/25/2008 1 mL Dexamethasone 07/14/2008 1 mL Dexamethasone 01/15/2009 1 mL Dexamethasone 01/18/2009 1 mL Dexamethasone 06/28/2009 1 mL Dexamethasone 05/21/2014 1 mL Dexamethasone 10/23/2016 1 mL Dexamethasone 09/21/2017 1 mL Dexamethasone 12/04/2021 1 mL Pt tolerate d well Dexamethasone 06/03/2023 1 mL Dexamethasone 07/12/2009 1 mL Dexamethasone 01/24/2010 1 mL Dexamethasone 09/09/2010 1 mL Dexamethasone 07/05/2012 1 mL Dexamethasone 11/04/2012 1 mL Dexamethasone 05/01/2014 1 mL Medical (General) History Medical History History ICD Code Hyperlipidemia dysplastic colon polyp 1999 Sleep apnea on c-PAP OA Vitamin D deficiency Seasonal allergies 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 Garibay/polyp 09/2010 ORIF left femur fracture 10/2017 left hip replacement - Dr. Chung 04/2018 Stent placement both legs 03/2021 Cataract Surgery 05/2022 Right Hip Replacement Total 05/02/2024 EGD/ [place]/ Gr 1 esophageal varices 2024 Heart cath/ [place]/ minor blockages. no intervention 06/2025 Hospitalization History Reason Date(Month/Year) [facility] in [place] 11/2014
--- OUTSIDE RECORDS SUMMARY | 2025-09-15 20:34 | XMS_ITS | Clinical Summary ---
Author Organization [facility] Address [address] [place] [address] Phone Care Team Providers Care Lime Kiln Tender Name Role Phone Rosemarie SINGH, Ezequiel Dubois Unavailable U jose alejandro CORCORAN MD, MAGO Unavailable [phone] Reason for Visit and Chief Complaint [Patient Encounter] Problems Includes: Problems addressed during this encounter and other active Problems All Visits Onset Date Resolved Date Provider Condition S tatus Joint Pain Hip Right 08/02/2025 Young Rajan Active Last Documented On 5 1:44PM ; [facility] Joint Pain Hip Bilateral 03/17/2018 Ezequiel Houston MD Active Last Documented On 8 3:22PM ; [facility] Plan of Treatment No Plan of [...] On 4 8:31AM By Hung Houston ; [facility] traMADol HCl 50 MG Oral Tablet 05/01/2024 Provider: Ezequiel Houston MD Diagnosis: 1-2 po q 4-6h Last Documented On 4 2:09PM By Hung Houston ; [facility], [facility] oxyCODONE HCl 5 MG Oral Tablet 05/01/2024 Provider: Ezequiel Houston MD Diagnosis: 1-2 po q 4-6h Last Documented On 4 2:09PM By Hung Houston ; [facility] Tranexamic Acid 650 MG Oral Tablet 05/01/2024 Provid er: Ezequiel Houston MD Diagnosis: as directed TAKE 3 TABLETS O NE TIME A DAY BEGINNING THE EVENING OF SURGERY FOR FOUR DAYS Last Documented On 4 2:09PM By Hung Houston ; [facility] Ondansetron HCl 4 MG Oral Tablet 05/01/2024 Provider : Ezequiel Houston MD Diagnosis: 4avf0-8h Last Documented On 4 2:09PM By Hung Houston ; [facility] Meloxicam 15 MG Oral Tablet 05/01/2024 Provider: Ezequiel Houston MD Diagnosis: once a day Last Documented On 4 2:09PM By Hung Houston ; [facility] Colace 100 MG Oral Capsule 05/01/2024 Provider: Danna Houston MD Diagnosis: 1-2 tabs daily Last Documented On 4 2:09PM By Hung Houston ; [facility], [facility] Cefadroxil 500 MG Oral Capsule 05/01/2024 Provider: Ezequiel Houston MD Diagnosis: twice a day Last Documented On 4 2:09PM By Hung Houston ; [facility] Acetaminophen 500 MG Oral Tablet 05/01/2024 Provider : Ezequiel Houston MD Diagnosis: 2 three times a day Last Documented On 4 2:09PM By Hung Houston ; [facility] Albuterol Sulfate HFA 108 (9 0 Base) MCG/ACT Inhalation Aerosol Solution 03/14/2024 Provider: Diagnosis: Last Documented On 4 7:33AM By Abdirashid Mayfield ; [facility] DULoxetine HCl 30 MG Oral Capsule Delayed Release Spri nkle 03/14/2024 Provider: Diagnosis: Last Documented On 4 7:34AM By Abdirashid Mayfield ; [facility] Metoprolol Succinate ER 100 MG Oral Tablet Extended Release 24 Hour 03/14/2024 Provider: Diagnosis: Last Documented On 4 7:35AM By Abdirashid Mayfield ; [facility] Benazepril HCl 40 MG Oral Tablet 03/03/2024 Provider : MAGO CORCORAN MD Diagnosis: Last Documented On 4 9:22AM By Paula Lewis ; [facility] Fluticasone Propionate 50 MC G/ACT Nasal Suspension 03/02/2024 Provider: MAGO CORCORAN MD Diagnosis: Last Documented On 4 9:22AM By Paula Lewis ; [facility] Atorvastatin Calcium 40 MG Oral Tablet 03/02/2024 Pr ovider: MAGO CORCORAN MD Diagnosis: Last Documented On 4 9:22AM By Paula Lewis ; [facility] amLODIPine Besylate 10 MG Oral Tablet 03/02/2024 Pro vider: MAGO CORCORAN MD Diagnosis: Last Documented On 4 9:22AM By Paula Lewis ; [facility] Alendronate Sodium 70 MG Oral Tablet 03/02/2024 Prov ider: MAGO CORCORAN MD Diagnosis: Last Documented On 4 9:22AM By Paula Lewis ; [facility] Furosemide 40 MG Oral Tablet 03/02/2024 Provider: MAGO CORCORAN MD Diagnosis: Last Documented On 4 9:22AM By Paula Lewis ; [facility] Clopidogrel Bisulfate 75 MG Oral Tablet 03/02/2024 P rovider: MAGO CORCORAN MD Diagnosis: Last Documented On 4 9:22AM By Paula Lewis ; [facility] Medications Administered Includes: Administered Medications from [...] Documented On 5 1:44PM ; [facility] Encounters Encounter Provider Location Date Check-In Time Check-Out Time Diagnosis [Patient Encounter] Ezequiel Houston MD [facility] 4 9:27AM 11:59PM Insurance Includes: Active Insurance Policies Plan Name Member ID Group # Subscriber Relationship Effect kar Dates 1 - Medicare Part B [facility] [id number] Antonia Pickens Self 2 - [facility] [id number] Antonia Pickens Self 11/08/2017 - Unknown Clinical Notes Includes: Clinical Notes from this encounter No Clinical Notes Recorded
--- OUTSIDE RECORDS SUMMARY | 2025-09-15 20:35 | XMS_ITS | Clinical Summary ---
Author Organization [facility] , [facility] Address [address] [place] [place] [address] Phone Care Team Providers Care City Collector Name Role Phone Rosemarie SINGH, Ezequiel Dubois Unavailable [phone] JEWELL SINGH, MAGO Unavailable [phone] Reason for Visit and Chief Complaint The Chief Complaint is: Left DEANNA Problems Includes: Problems addressed during this encounter and other active Problems All Visits Onset Date Resolved Date Provider Condition S tatus Joint Pain Hip Right 08/02/2025 Young Rajan Active Last Documented On 5 1:44PM ; [facility] Joint Pain Hip Bilateral 03/17/2018 Ezequiel Houston MD Active Last Documented On 8 3:22PM ; [facility] Plan of Treatment Fall Risk Assessment: [...] - Last Documented On 08/02/2025 2:10PM ; [facility] Patient is very pleased with the hip surgery, reports no issues today. We will plan for follow up 5 year postop intervals - Last Documented On 08/02/2025 2:10PM ; [facility] Pending Tests Order Diagnosis Results Due Ordering Polly dwyer Lab Hemoglobin A1c 04/19/24 Young F Hen son PA-C Last Documented On 4 8:14AM ; [facility], [facility] Lab CBC With Differential/Platelet 04/19 Young Farias Rashaad PA-C Last Documented On 4 8:14AM ; [facility], [facility] Lab Prothrombin Time (PT) 04/19/24 Ann-Marie Farias Rashaad PA-C Last Documented On 4 8:14AM ; [facility], [facility] Lab PTT, Activated 04/19/24 Young Farias Winston son PA-C Last Documented On 4 8:14AM ; [facility], [facility] Lab Prealbumin 04/19/24 Young Farias Rashaad PA-C Last Documented On 4 8:14AM ; [facility], [facility] Lab Fructosamine 04/19/24 Young Farias Maura jaime PA-C Last Documented On 4 8:14AM ; [facility], [facility] Lab MRSA by DA 04/19/24 Young Dinora Rashaad PA-C Last Documented On 4 8:14AM ; [facility] Lab Comp. Metabolic Panel (14) 04/19/24 Young Dinora Rashaad PA-C Last Documented On 4 8:14AM ; [facility], [facility] Instructions to patient Instructions for patient to see pcp for bp Last Documented On 5 1:44PM ; [facility], [facility] Intervention and counseling 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 of tobacco use Last Documented On 5 1:44PM ; [facility], [facility] Assessments Includes: Assessments from this encounter Findings 1 year status post left DEANNA - Last Documented On 08/02/2025 2:10PM ; [facility], [facility] Instructions Includes: Instructions from this encounter Instructions to patient Instructions for patient to see pcp for bp Last Documented On 5 1:44PM ; [facility], [facility] Intervention and counseling 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 of tobacco use Last Documented On 5 1:44PM ; [facility], [facility] Medical Equipment - Implanted Devices Includes: Current Devices No Medical Equipment Recorded Medications Includes: Medications discussed during this encounter and other current Medications Current Medications (continue as prescribed) Aspirin 81 81 MG Oral Tablet Chewable 05/02/2024 Provider: Ezequiel ruby MD Diagnosis: once a day Last Documented On 4 8:31AM By Hung Houston ; [facility] traMADol HCl 50 MG Oral Tablet 05/01/2024 Provider: Ezequiel Houston MD Diagnosis: 1-2 po q 4-6h Last Documented On 4 2:09PM By Hung Houston ; [facility] oxyCODONE HCl 5 MG Oral Tablet 05/01/2024 Provider: Ezequiel Houston MD Diagnosis: 1-2 po q 4-6h Last Documented On 4 2:09PM By Hung Houston ; [facility] Tranexamic Acid 650 MG Oral [...] 05/01/2024 Provider : Ezequiel Houston MD Diagnosis: [id number] Last Documented On 4 2:09PM By Hung [facility] Acetaminophen 500 MG Oral Tablet 05/01/2024 Provider : Ezequiel Houston MD Diagnosis: 2 three times a day Last Documented On 4 2:09PM By Hung Houston ; [facility] Albuterol Sulfate HFA 108 (9 0 Base) MCG/ACT Inhalation Aerosol Solution 03/14/2024 Provider: Diagnosis: Last Documented On 4 7:33AM By Abdirashid Mayfield ; [facility] DULoxetine HCl 30 MG Oral Capsule Delayed Release Spri nkle 03/14/2024 Provider: Diagnosis: Last Documented On 4 7:34AM By Abdirashid Mayfield ; [facility], [facility] Metoprolol Succinate ER 100 MG Oral Tablet Extended Release 24 Hour 03/14/2024 Provider: Diagnosis: Last Documented On 4 7:35AM By Abdirashid Mayfield ; [facility], [facility] Benazepril HCl 40 MG Oral Tablet 03/03/2024 Provider : MAGO CORCORAN MD Diagnosis: Last Documented On 4 9:22AM By Paula Lewis ; [facility], [facility] Fluticasone Propionate 50 MC G/ACT Nasal Suspension 03/02/2024 Provider: MAGO CORCORAN MD Diagnosis: Last Documented On 4 9:22AM By Paula Lewis ; [facility], [facility] Atorvastatin Calcium 40 MG Oral Tablet 03/02/2024 Pr ovider: MAGO CORCORAN MD Diagnosis: Last Documented On 4 9:22AM By Paula Lewis ; [facility], [facility] amLODIPine Besylate 10 MG Oral Tablet 03/02/2024 Pro vider: MAGO CORCORAN MD Diagnosis: Last Documented On 4 9:22AM By Paula Lewis ; [facility], [facility] Alendronate Sodium 70 MG Oral Tablet 03/02/2024 Prov ider: MAGO CORCORAN MD Diagnosis: Last Documented On 4 9:22AM By Paula Lewis ; [facility], [facility] Furosemide 40 MG Oral Tablet 03/02/2024 Provider: MAGO CORCORAN MD Diagnosis: Last Documented On 4 9:22AM By Paula Lewis ; [facility] Clopidogrel Bisulfate 75 MG Oral Tablet 03/02/2024 P rovider: MAGO CORCORAN MD Diagnosis: Last Documented On 4 9:22AM By Paula Lewis ; [facility] Past Medications on file TraMADol HCl 50MG Oral Tablet 03/22/2018 - 03/27/2018 Provider: Ezequiel ravi MD Diagnosis: 2 Tablets every 6 hours PRN pain for surgery DO NOT FILL TILL 18 Last Documented On 8 10:34AM By Bella Deleon ; [facility], [facility] OxyCODONE HCl 5MG Oral Tablet 03/22/2018 - 03/24/2018 Provider: Ezequiel ravi MD Diagnosis: 1-2 pills every 4-6 hours AR N pain for surgery DO NOT FILL TILL 18 Last Documented On 8 10:33AM By Bella Deleon ; [facility] Colace 100MG Oral Capsule 03/22/2018 - 06/20/2018 Provider: Ezequiel ravi MD Diagnosis: 1-2 tabs daily for surgery * *DO NOT FILL TILL 03-28-18 Last Documented On 8 10:40AM By Bella Deleon ; [facility] Acetaminophen 500MG Oral Tablet 03/22/2018 - 03/30/2018 Provider: Ezequiel Houston MD Diagnosis: 2 three times a day for surg tiffanie DO NOT FILL TILL 03-28-18 Last Documented On 8 10:40AM By Bella Deleon ; [facility] Mupirocin 2% External Ointment 03/21/2018 - 03/26/2018 Provider: Ezequiel ravi MD Diagnosis: Apply to nostrils 3 time a d ay 5 days prior to surgery. Last Documented On 8 10:49AM By Jaja Rutledge ; [facility], [facility] Medications Administered Includes: Administered Medications from this encounter No Administered Medications Recorded Vital Signs Includes: Vital Signs from this encounter Vital Name 08/02/2025 01:44P Height (in) 62 Weight (lb) 115 Body Mass Index 21 Body Surface Area 1.5 Note: ab Last Documented: On 08/02/2025 1:59PM ; [facility], [facility] Results Includes: Results discussed during this encounter No Results Recorded For Specified Dates History of Present Illness Includes: History of Present Illness from this encounter APRIL Pickens is a 75 year old female. - Allergy list reviewed - Problem list reviewed - Medication list reviewed - - Review of medications documented Social History Description Last Updated No recent change in diet 08/02/2025 Last Documented On 2:10PM ; [facility], [facility] Not using drugs 08/02/2025 Last Documented On 2:10PM ; [facility], [facility] Alcohol use 03/07/2024 Last Documented On 1:44PM ; [facility] Caffeine use 03/07/2024 Last Documented On 1:44PM ; [facility] Not exercising regularly 03/07/2024 Last Documented On 1:44PM ; [facility], [facility] Yes, current smoker. 03/07/2024 Last Documented On 1:44PM ; [facility], [facility] Tobacco use 03/07/2024 Last Documented On 1:44PM ; [facility], [facility] Smoking status Current some day smoker 0 03/17/2018 Last Documented On 1:44PM ; [facility] Current smoker 03/17/2018 Last Documented On 1:44PM ; [facility] Procedures and Surgical History Includes: Procedures from this encounter Procedures Code Diagnosis Performing Provider Service Location Service Date PELVIS w/ 2-3 VIEW HIP (RIGHT) 87694 Unilateral primary osteoarthritis, right hip, Presence of right artificial hip joint Young Neil PA-C [facility] 08/02/2025 Last Documented On 2:46PM ; [facility], [facility] history of orthopedic options: physical therapy Last Documented On 1:44PM ; [facility], [facility] 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 Last Documented On 1:44PM ; [facility], [facility] use of tobacco assessment performed 1000F Last Documented On 1:44PM ; [facility], [facility] patient screened for future fall risk: documentation of any fall with injury in past year 1100F Last Documented On 1:44PM ; [facility], [facility] review of medications documented 1160F Last Documented On 1:44PM ; [facility] Clinical summary provided to patient Last Documented On 1:44PM ; [facility] an X-ray was performed 58098 Last Documented On 5 1:44PM ; [facility] an MRI was performed [id number] Last Documented On 1:44PM ; [facility] Surgical History Last Updated History of Previous Fractures 03/07/2024 Last Documented On 5 1:44PM ; [facility] History of total hip replacement 024 Last Documented On 1:44PM ; [facility] History of back surgery 03/17/2018 Last Documented On 1:44PM ; [facility] Medical History Includes: Medical History addressed during this encounter Description Last Updated History of arthritis 03/07/2024 Last Documented On 1:44PM ; [facility] History of History of Emphysema 03/07/20 24 Last Documented On 1:44PM ; [facility] History of Sleep Apnea 03/07/2024 Last Documented On 1:44PM ; [facility] Arthritic joint problems 03/17/2018 Last Documented On 1:44PM ; [facility] Family History Includes: Family History addressed during this encounter Description Last Updated Diabetes mellitus 03/07/2024 Last Documented On 5 1:44PM ; [facility] Family history of heart disease 03/07/20 24 Last Documented On 1:44PM ; [facility] Family history of osteoporosis 4 Last Documented On 1:44PM ; [facility] Fraternal history of diabetes mellitus 0 03/17/2018 Last Documented On 1:44PM ; [facility] Maternal history of family history of he art disease 03/17/2018 Last Documented On 5 1:44PM ; [facility] Maternal history of osteoporosis 018 Last Documented On 5 1:44PM ; [facility] Paternal aunt's history of rheumatoid ar thritis 03/17/2018 Last Documented On 5 1:44PM ; [facility] Review of Systems Includes: Review [...] Active Last Documented On 5 1:44PM ; [facility] Encounters Encounter Provider Location Date Check-In Time Check- Out Time Diagnosis Follow Up Young Neil PA-C [facility] 5 1:34PM 2:08PM Insurance Includes: Active Insurance Policies Plan Name Member ID Group # Subscriber Relationship Effect kar Dates 1 - Medicare [place] of [place] [id number] Antonia Pickens Self 2 - [facility] [id number] Antonia Pickens Self 11/08/2017 - Unknown Clinical Notes Includes: Clinical Notes from this encounter * Progress note Date Encounter Last Documented by 08/02/2025 Follow Up Last documented on 08/02/2025; 2:10 PM, Young Neil PA-C; [facility] Active Problems & Conditions - Joint [...] - Ondansetron HCl 4 MG Oral Tablet 2oya9-5e, 5 days, 0 refills - oxyCODONE HCl [...] Care Team - MAGO CORCORAN MD - [employer] DEVELOPER
--- OUTSIDE RECORDS SUMMARY | 2025-09-15 20:35 | XMS_ITS | Clinical Summary ---
Author Organization [facility] , [facility] Address [address] [place] [address] Phone Care Team Providers Care Pulp Machine Operator Name Role Phone Rosemarie SINGH, Ezequiel Dubois Unavailable [phone] JEWELL SINGH, MAGO Unavailable [phone] Reason for Visit and Chief Complaint The Chief Complaint is: Left DEANNA Problems Includes: Problems addressed during this encounter and other active Problems All Visits Onset Date Resolved Date Provider Condition S tatus Joint Pain Hip Right 08/02/2025 Young Rajan Active Last Documented On 5 1:44PM ; [facility] Joint Pain Hip Bilateral 03/17/2018 Ezequiel Houston MD Active Last Documented On 8 3:22PM ; [facility] Plan of Treatment - Patient screened for future fall risk: documentation of any fall with injury in past year - Last Documented On 08/01/2024 2:37PM ; [facility] Fall Risk Assessment: This patient has been [...] - Last Documented On 08/01/2024 2:37PM ; [facility] Patient is now almost 12 weeks postop [...] 8:31AM By Hung Houston ; [facility] traMADol HCl 50 MG Oral Tablet 05/01/2024 Provider: Ezequiel Houston MD Diagnosis: 1-2 po q 4-6h Last Documented On 4 2:09PM By Hung Houston ; [facility] oxyCODONE HCl 5 MG Oral Tablet 05/01/2024 Provider: Ezequiel Houston MD Diagnosis: 1-2 po q 4-6h Last Documented On 4 2:09PM By Hung Houston ; [facility] Tranexamic Acid 650 MG Oral Tablet 05/01/2024 Provid er: Ezequiel Houston MD Diagnosis: as directed TAKE 3 TABLETS O NE TIME A DAY BEGINNING THE EVENING OF SURGERY FOR FOUR DAYS Last Documented On 4 2:09PM By Hung Houston ; [facility] Ondansetron HCl 4 MG Oral Tablet 05/01/2024 Provider : Ezequiel Houston MD Diagnosis: [id number] Last Documented On 4 2:09PM By Hung Houston ; [facility] Meloxicam 15 MG Oral Tablet 05/01/2024 Provider: Ezequiel Houston MD Diagnosis: once a day Last Documented On 4 2:09PM By Hung Houston ; [facility] Colace 100 MG Oral Capsule 05/01/2024 Provider: Danna Houston MD Diagnosis: 1-2 tabs daily Last Documented On 4 2:09PM By Hung Houston ; [facility] Cefadroxil 500 MG Oral Capsule 05/01/2024 Provider: Ezequiel Houston MD Diagnosis: twice a day Last Documented On 4 2:09PM By Hung Houston ; [facility] Acetaminophen 500 MG Oral Tablet 05/01/2024 Provider : Ezequiel Houston MD Diagnosis: 2 three times a day Last Documented On 4 2:09PM By Hung Houston ; [facility], [facility] Albuterol Sulfate HFA 108 (9 0 Base) MCG/ACT Inhalation Aerosol Solution 03/14/2024 Provider: Diagnosis: Last Documented On 4 7:33AM By Abdirashid Mayfield ; [facility], [facility] DULoxetine HCl 30 MG Oral Capsule Delayed Release Spri nkle 03/14/2024 Provider: Diagnosis: Last Documented On 4 7:34AM By Abdirashid Mayfield ; [facility], [facility] Metoprolol Succinate ER 100 MG Oral Tablet Extended Release 24 Hour 03/14/2024 Provider: Diagnosis: Last Documented On 4 7:35AM By Abdirashid Mayfield ; [facility], [facility] Benazepril HCl 40 MG Oral Tablet 03/03/2024 Provider : MAGO CORCORAN MD Diagnosis: Last Documented On 4 9:22AM By Paula Lewis ; [facility], [facility] Fluticasone Propionate 50 MC G/ACT Nasal Suspension 03/02/2024 Provider: MAGO CORCORAN MD Diagnosis: Last Documented On 4 9:22AM By Paula Lewis ; [facility], [facility] Atorvastatin Calcium 40 MG Oral Tablet 03/02/2024 Pr ovider: MAGO CORCORAN MD Diagnosis: Last Documented On 4 9:22AM By Paula Lewis ; [facility] amLODIPine Besylate 10 MG Oral Tablet 03/02/2024 Pro vider: MAGO CORCORAN MD Diagnosis: Last Documented On 4 9:22AM By Paula Lewis ; [facility] Alendronate Sodium 70 MG Oral Tablet 03/02/2024 Prov ider: MAGO CORCORAN MD Diagnosis: Last Documented On 4 9:22AM By Paula Lewis ; [facility] Furosemide 40 MG Oral Tablet 03/02/2024 Provider: MAGO CORCORAN MD Diagnosis: Last Documented On 4 9:22AM By Paula Lewis ; [facility] Clopidogrel Bisulfate 75 MG Oral Tablet 03/02/2024 P rovider: MAGO CORCORAN MD Diagnosis: Last Documented On 4 9:22AM By Paula Lewis ; [facility], [facility] Past Medications on file TraMADol HCl 50MG Oral Tablet 03/22/2018 - 03/27/2018 Provider: Ezequiel ravi MD Diagnosis: 2 Tablets every 6 hours PRN pain for surgery DO NOT FILL TILL 03-28-18 Last Documented On 8 10:34AM By Bella Deleon ; [facility], [facility] OxyCODONE HCl 5MG Oral Tablet 03/22/2018 - 03/24/2018 Provider: Ezequiel ravi MD Diagnosis: 1-2 pills every 4-6 hours CA N pain for surgery DO NOT FILL TILL 18 Last Documented On 8 10:33AM By Bella Deleon ; [facility], [facility] Colace 100MG Oral Capsule 03/22/2018 - 06/20/2018 Provider: Ezequiel ravi MD Diagnosis: 1-2 tabs daily for surgery * *DO NOT FILL TILL 18 Last Documented On 8 10:40AM By Bella Deleon ; [facility] Acetaminophen 500MG Oral Tablet 03/22/2018 - 03/30/2018 Provider: Ezequiel Houston MD Diagnosis: 2 three times a day for surg tiffanie DO NOT FILL TILL 03-28-18 Last Documented On 8 10:40AM By Bella Deleon ; [facility] Mupirocin 2% External Ointment 03/21/2018 - 03/26/2018 Provider: Ezequiel ravi MD Diagnosis: Apply to nostrils 3 time a d ay 5 days prior to surgery. Last Documented On 8 10:49AM By Jaja Rutledge ; [facility], [facility] Medications Administered Includes: Administered Medications from this encounter No Administered Medications Recorded Vital Signs Includes: Vital Signs from this encounter Vital Name 08/01/2024 02:03P Height (in) 62 Weight (lb) 122 Body Mass Index 22.3 Body Surface Area 1.5 Note: ab Last Documented: On 08/01/2024 2:03PM ; [facility] Results Includes: Results discussed during this [...] Documented On 4 2:37PM ; [facility] Not using drugs 08/01/2024 Last Documented On 4 2:37PM ; [facility] Alcohol use 03/07/2024 Last Documented On 4 2:02PM ; [facility] Caffeine use 03/07/2024 Last Documented On 4 2:02PM ; [facility] Not exercising regularly 03/07/2024 Last Documented On 4 2:02PM ; [facility] Yes, current smoker. 03/07/2024 Last Documented On 4 2:02PM ; [facility] Tobacco use 03/07/2024 Last Documented On 4 2:02PM ; [facility] Smoking status Current some day smoker 0 03/17/2018 Last Documented On 4 2:02PM ; [facility] Current smoker 03/17/2018 Last Documented On 4 2:02PM ; [facility] Procedures and Surgical History Includes: Procedures from this encounter Procedures Code Diagnosis Performing Provider Service L ocation Service Date history of orthopedic options: physical therapy Last Documented On 4 2:02PM ; [facility] 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 Last Documented On 4 2:02PM ; [facility] use of tobacco assessment performed 1000F Last Documented On 4 2:02PM ; [facility] patient screened for future fall risk: documentation of any fall with injury in past year 1100F Last Documented On 4 2:02PM ; [facility] review of medications documented 1160F Last Documented On 4 2:02PM ; [facility] Clinical summary provided to patient Last Documented On 4 2:02PM ; [facility] 62634 Last Documented On 4 2:02PM ; [facility] an MRI was performed [id number] Last Documented On 4 2:02PM ; [facility] Surgical History Last Updated History of Previous Fractures 03/07/2024 Last Documented On 4 2:02PM ; [facility] History of total hip replacement 024 Last Documented On 4 2:02PM ; [facility] History of back surgery 03/17/2018 Last Documented On 4 2:02PM ; [facility] Medical History Includes: Medical History addressed during this encounter Description Last Updated History of arthritis 03/07/2024 Last Documented On 4 2:02PM ; [facility] History of History of Emphysema 03/07/20 24 Last Documented On 4 2:02PM ; [facility] History of Sleep Apnea 03/07/2024 Last Documented On 4 2:02PM ; [facility] Arthritic joint problems 03/17/2018 Last Documented On 4 2:02PM ; [facility] Family History Includes: Family History addressed during this encounter Description Last Updated Diabetes mellitus 03/07/2024 Last Documented On 4 2:02PM ; [facility], [facility] Family history of heart disease 03/07/20 24 Last Documented On 4 2:02PM ; [facility], [facility] Family history of osteoporosis 4 Last Documented On 4 2:02PM ; [facility], [facility] Fraternal history of diabetes mellitus 0 03/17/2018 Last Documented On 4 2:02PM ; [facility], [facility] Maternal history of family history of he art disease 03/17/2018 Last Documented On 4 2:02PM ; [facility], [facility] Maternal history of osteoporosis 018 Last Documented On 4 2:02PM ; [facility], [facility] Paternal aunt's history of rheumatoid ar thritis 03/17/2018 Last Documented On 4 2:02PM ; [facility], [facility] Review of Systems Includes: Review of [...] Active Last Documented On 5 1:44PM ; [facility], [facility] Encounters Encounter Provider Location Date Check-In Time Check-Out Time Diagnosis Follow Up Raad Oilvares PA-C [facility] 4 1:52PM 2:37PM Insurance Includes: Active Insurance Policies Plan Name Member ID Group # Subscriber Relationship Effect kar Dates 1 - Medicare Part B of [place] [id number] Antonia Pickens Self 2 - [employer] [facility] [id number] Antonia Pickens Self 11/08/2017 - Unknown Clinical Notes Includes: Clinical Notes from this encounter * Progress note Date Encounter Last Documented by 08/01/2024 Follow Up Last documented on 08/01/2024; 2:37 PM, Raad Olivares PA-C; [facility], [facility] Active Problems & Conditions - Joint [...] - Ondansetron HCl 4 MG Oral Tablet [id number], 5 days, 0 refills - oxyCODONE HCl [...] Care Team - MAGO CORCORAN MD - EDUCATIONAL RECRUITER
--- OUTSIDE RECORDS SUMMARY | 2025-09-15 20:35 | XMS_ITS | Clinical Summary ---
Author Organization [facility] , [facility] Address [address] [place] [address] Phone Care Team Providers Care Kindergarten Aide Name Role Phone Rosemarie SINGH, Ezequiel Dubois Unavailable [phone] JEWELL SINGH, MAGO Unavailable [phone] Reason for Visit and Chief Complaint [facility] Problems Includes: Problems addressed during this encounter and other active Problems All Visits Onset Date Resolved Date Provider Condition S tatus Joint Pain Hip Right 08/02/2025 Young Rajan Active Last Documented On 5 1:44PM ; [facility] Joint Pain Hip Bilateral 03/17/2018 Ezequiel Houston MD Active Last Documented On 8 3:22PM ; [facility] Plan of Treatment No Plan of [...] On 4 8:26AM By Hung Houston ; [facility] Current Medications (continue as prescribed) Aspirin 81 81 MG Oral Tablet Chewable 05/02/2024 Provider: Ezequiel ruby MD Diagnosis: once a day Last Documented On 4 8:31AM By Hung Houston ; [facility] traMADol HCl 50 MG Oral Tablet 05/01/2024 Provider: Ezequiel Houston MD Diagnosis: 1-2 po q 4-6h Last Documented On 4 2:09PM By Hung Houston ; [facility] oxyCODONE HCl 5 MG Oral Tablet 05/01/2024 Provider: Ezequiel Houston MD Diagnosis: 1-2 po q 4-6h Last Documented On 4 2:09PM By Hung Houston ; [facility] Tranexamic Acid 650 MG Oral Tablet 05/01/2024 Provid er: Ezequiel Houston MD Diagnosis: as directed TAKE 3 TABLETS O NE TIME A DAY BEGINNING THE EVENING OF SURGERY FOR FOUR DAYS Last Documented On 4 2:09PM By Hung Houston ; [facility] Ondansetron HCl 4 MG Oral Tablet 05/01/2024 Provider : Ezequiel Houston MD Diagnosis: [id number] Last Documented On 4 2:09PM By Hung Houston ; [facility] Meloxicam 15 MG Oral Tablet 05/01/2024 Provider: Ezequiel Houston MD Diagnosis: once a day Last Documented On 4 2:09PM By Hung Houston ; [facility] Colace 100 MG Oral Capsule 05/01/2024 Provider: Danna Houston MD Diagnosis: 1-2 tabs daily Last Documented On 4 2:09PM By Hung Houston ; [facility] Cefadroxil 500 MG Oral Capsule 05/01/2024 Provider: Ezequiel Houston MD Diagnosis: twice a day Last Documented On 4 2:09PM By Hung Houston ; [facility] Acetaminophen 500 MG Oral Tablet 05/01/2024 Provider : Ezequiel Houston MD Diagnosis: 2 three times a day Last Documented On 4 2:09PM By Hung Houston ; [facility] Albuterol Sulfate HFA 108 (9 0 Base) MCG/ACT Inhalation Aerosol Solution 03/14/2024 Provider: Diagnosis: Last Documented On 4 7:33AM By Abdirashid Mayfield ; [facility] DULoxetine HCl 30 MG Oral Capsule Delayed Release Spri nkle 03/14/2024 Provider: Diagnosis: Last Documented On 4 7:34AM By Abdirashid Mayfield ; [facility], [facility] Metoprolol Succinate ER 100 MG Oral Tablet Extended Release 24 Hour 03/14/2024 Provider: Diagnosis: Last Documented On 4 7:35AM By Abdirashid Mayfield ; [facility], [facility] Benazepril HCl 40 MG Oral Tablet 03/03/2024 Provider : MAGO CORCORAN MD Diagnosis: Last Documented On 4 9:22AM By Paula Lewis ; [facility], [facility] Fluticasone Propionate 50 MC G/ACT Nasal Suspension 03/02/2024 Provider: MAGO CORCORAN MD Diagnosis: Last Documented On 4 9:22AM By Paula Lewis ; [facility], [facility] Atorvastatin Calcium 40 MG Oral Tablet 03/02/2024 Pr ovider: MAGO CORCORAN MD Diagnosis: Last Documented On 4 9:22AM By Paula Lewis ; [facility], [facility] amLODIPine Besylate 10 MG Oral Tablet 03/02/2024 Pro vider: MAGO CORCORAN MD Diagnosis: Last Documented On 4 9:22AM By Paula Lewis ; [facility], [facility] Alendronate Sodium 70 MG Oral Tablet 03/02/2024 Prov ider: MAGO CORCORAN MD Diagnosis: Last Documented On 4 9:22AM By Paula Lewis ; [facility], [facility] Furosemide 40 MG Oral Tablet 03/02/2024 Provider: MAGO CORCORAN MD Diagnosis: Last Documented On 4 9:22AM By Paula Lewis ; [facility], [facility] Clopidogrel Bisulfate 75 MG Oral Tablet 03/02/2024 P rovider: MAGO CORCORAN MD Diagnosis: Last Documented On 4 9:22AM By Paula Lewis ; [facility], [facility] Medications Administered Includes: Administered Medications from this [...] Active Last Documented On 5 1:44PM ; [facility], [facility] Encounters Encounter Provider Location Date Check-In Time Check-Out Time Diagnosis [facility] Ezequiel Houston MD Surgery 05/02/20 24 1:45PM 11:59PM Insurance Includes: Active Insurance Policies Plan Name Member ID Group # Subscriber Relationship Effect kar Dates 1 - Medicare Part B [facility] [id number] Antonia Pickens Self 2 - [employer] [id number] Antonia Pickens Self 11/08/2017 - Unknown Clinical Notes Includes: Clinical Notes from this encounter No Clinical Notes Recorded
--- OUTSIDE RECORDS SUMMARY | 2025-09-15 20:36 | XMS_ITS | Clinical Summary ---
Author Organization [facility] Address [address] [place] [address] Phone Care Team Providers Care Cardiac Care Unit Nurse Name Role Phone Rosemarie SINGH, Ezequiel Dubois Unavailable [phone] JEWELL SINGH, MAGO Unavailable [phone] Reason for Visit and Chief Complaint The Chief Complaint is: Left DEANNA Problems Includes: Problems addressed during this encounter and other active Problems All Visits Onset Date Resolved Date Provider Condition S tatus Joint Pain Hip Right 08/02/2025 Young Rajan Active Last Documented On 5 1:44PM ; [facility] Joint Pain Hip Bilateral 03/17/2018 Ezequiel Houston MD Active Last Documented On 8 3:22PM ; [facility] Plan of Treatment Fall Risk Assessment: [...] - Last Documented On 06/13/2024 4:22PM ; [facility] Overall patient is pleased with the progress, we discussed the importance of patients with increasing activities. Start physical therapy outpatient. We will plan for follow up 6 weeks - Last Documented On 06/13/2024 4:22PM ; [facility] Pending Tests Order Diagnosis Results Due Ordering Polly dwyer Lab Hemoglobin A1c 04/19/24 Young F Hen son PA-C Last Documented On 4 8:14AM ; [facility] Lab CBC With Differential/Platelet 04/19 Young Neil PA-C Last Documented On 4 8:14AM ; [facility] Lab Prothrombin Time (PT) 04/19/24 Ann-Marie Neil PA-C Last Documented On 4 8:14AM ; [facility] Lab PTT, Activated 04/19/24 Young cullen PA-C Last Documented On 4 8:14AM ; [facility] Lab Prealbumin 04/19/24 Young Neil PA-C Last Documented On 4 8:14AM ; [facility] Lab Fructosamine 04/19/24 Young Lorenzo n PA-C Last Documented On 4 8:14AM ; [facility] Lab MRSA by DA 04/19/24 Young Neil PA-C Last Documented On 4 8:14AM ; [facility] Lab Comp. Metabolic Panel (14) 04/19/24 Young Neil PA-C Last Documented On 4 8:14AM ; [facility] Instructions to patient Instructions for patient to see pcp for bp Last Documented On 4 2:07PM ; [facility] Intervention and counseling 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 of tobacco use Last Documented On 4 2:07PM ; [facility] Assessments Includes: Assessments from this encounter Findings 6 weeks status six weeks status post right DEANNA - Last Documented On 06/13/2024 4:22PM ; [facility] Instructions Includes: Instructions from this encounter Instructions to patient Instructions for patient to see pcp for bp Last Documented On 4 2:07PM ; [facility] Intervention and counseling 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 of tobacco use Last Documented On 4 2:07PM ; [facility] Medical Equipment - Implanted Devices Includes: Current Devices No Medical Equipment Recorded Medications Includes: Medications discussed during this encounter and other current Medications Current Medications (continue as prescribed) Aspirin 81 81 MG Oral Tablet Chewable 05/02/2024 Provider: Ezequiel ruby MD Diagnosis: once a day Last Documented On 4 8:31AM By Hung Houston ; [facility] traMADol HCl 50 MG Oral Tablet 05/01/2024 Provider: Ezequiel Houston MD Diagnosis: 1-2 po q 4-6h Last Documented On 4 2:09PM By Hung Houston ; [facility] oxyCODONE HCl 5 MG Oral Tablet 05/01/2024 Provider: Ezequiel Houston MD Diagnosis: 1-2 po q 4-6h Last Documented On 4 2:09PM By Hung Houston ; [facility] Tranexamic Acid 650 MG Oral Tablet 05/01/2024 Provid er: Ezequiel Houston MD Diagnosis: as directed TAKE 3 TABLETS O NE TIME A DAY BEGINNING THE EVENING OF SURGERY FOR FOUR DAYS Last Documented On 4 2:09PM By Hung Houston ; [facility] Ondansetron HCl 4 MG Oral Tablet 05/01/2024 Provider : Ezequiel Houston MD Diagnosis: 4ape5-2h Last Documented On 4 2:09PM By Hung Houston ; [facility] Meloxicam 15 MG Oral Tablet 05/01/2024 Provider: Ezequiel Houston MD Diagnosis: once a day Last Documented On 4 2:09PM By Hung Houston ; [facility] Colace 100 MG Oral Capsule 05/01/2024 Provider: Danan Houston MD Diagnosis: 1-2 tabs daily Last Documented On 4 2:09PM By Hung Houston ; [facility] Cefadroxil 500 MG Oral Capsule 05/01/2024 Provider: Ezequiel Houston MD Diagnosis: twice a day Last Documented On 4 2:09PM By Hung Houston ; [facility] Acetaminophen 500 MG Oral Tablet 05/01/2024 Provider : Ezequiel Houston MD Diagnosis: 2 three times a day Last Documented On 4 2:09PM By Hung Houston ; [facility] Albuterol Sulfate HFA 108 (9 0 Base) MCG/ACT Inhalation Aerosol Solution 03/14/2024 Provider: Diagnosis: Last Documented On 4 7:33AM By Abdirashid Mayfield ; [facility] DULoxetine HCl 30 MG Oral Capsule Delayed Release Spri nkle 03/14/2024 Provider: Diagnosis: Last Documented On 4 7:34AM By Abdirashid Mayfield ; [facility] Metoprolol Succinate ER 100 MG Oral Tablet Extended Release 24 Hour 03/14/2024 Provider: Diagnosis: Last Documented On 4 7:35AM By Abdirashid Mayfield ; [facility] Benazepril HCl 40 MG Oral Tablet 03/03/2024 Provider : MAGO CORCORAN MD Diagnosis: Last Documented On 4 9:22AM By Paula Lewis ; [facility] Fluticasone Propionate 50 MC G/ACT Nasal Suspension 03/02/2024 Provider: MAGO CORCORAN MD Diagnosis: Last Documented On 4 9:22AM By Paula Lewis ; [facility] Atorvastatin Calcium 40 MG Oral Tablet 03/02/2024 Pr ovider: MAGO CORCORAN MD Diagnosis: Last Documented On 4 9:22AM By Paula Lewis ; [facility] amLODIPine Besylate 10 MG Oral Tablet 03/02/2024 Pro vider: MAGO CORCORAN MD Diagnosis: Last Documented On 4 9:22AM By Paula Lewis ; [facility] Alendronate Sodium 70 MG Oral Tablet 03/02/2024 Prov ider: MAGO CORCORAN MD Diagnosis: Last Documented On 4 9:22AM By Paula Lewis ; [facility] Furosemide 40 MG Oral Tablet 03/02/2024 Provider: MAGO CORCORAN MD Diagnosis: Last Documented On 4 9:22AM By Paula Lewis ; [facility] Clopidogrel Bisulfate 75 MG Oral Tablet 03/02/2024 P rovider: MAGO CORCORAN MD Diagnosis: Last Documented On 4 9:22AM By Paula Lewis ; [facility] Past Medications on file TraMADol HCl 50MG Oral Tablet 03/22/2018 - 03/27/2018 Provider: Ezequiel ravi MD Diagnosis: 2 Tablets every 6 hours PRN pain for surgery DO NOT FILL TILL 18 Last Documented On 8 10:34AM By Bella Deleon ; [facility] OxyCODONE HCl 5MG Oral Tablet 03/22/2018 - 03/24/2018 Provider: Ezequiel ravi MD Diagnosis: 1-2 pills every 4-6 hours OR N pain for surgery DO NOT FILL TILL 18 Last Documented On 8 10:33AM By Bella Deleon ; [facility] Colace 100MG Oral Capsule 03/22/2018 - 06/20/2018 Provider: Ezequiel ravi MD Diagnosis: 1-2 tabs daily for surgery * *DO NOT FILL TILL 03-28-18 Last Documented On 8 10:40AM By Bella Deleon ; [facility] Acetaminophen 500MG Oral Tablet 03/22/2018 - 03/30/2018 Provider: Ezequiel Houston MD Diagnosis: 2 three times a day for surg tiffanie DO NOT FILL TILL 03-28-18 Last Documented On 8 10:40AM By Bella Deleon ; [facility] Mupirocin 2% External Ointment 03/21/2018 - 03/26/2018 Provider: Ezequiel ravi MD Diagnosis: Apply to nostrils 3 time a d ay 5 days prior to surgery. Last Documented On 8 10:49AM By Jaja Rutledge ; [facility] Medications Administered Includes: Administered Medications [...] 06/13/2024 Last Documented On 4 4:22PM ; [facility] Not using drugs 06/13/2024 Last Documented On 4 4:22PM ; [facility] Alcohol use 03/07/2024 Last Documented On 4 2:07PM ; [facility] Caffeine use 03/07/2024 Last Documented On 4 2:07PM ; [facility] Not exercising regularly 03/07/2024 Last Documented On 4 2:07PM ; [facility] Yes, current smoker. 03/07/2024 Last Documented On 4 2:07PM ; [facility] Tobacco use 03/07/2024 Last Documented On 4 2:07PM ; [facility] Smoking status Current some day smoker 0 03/17/2018 Last Documented On 4 2:07PM ; 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 Last Documented On 4 2:07PM ; [facility] use of tobacco assessment performed 1000F Last Documented On 4 2:07PM ; [facility] patient screened for future fall risk: documentation of any fall with injury in past year 1100F Last Documented On 4 2:07PM ; [facility] review of medications documented 1160F Last Documented On 4 2:07PM ; [facility] Clinical summary provided to patient Last Documented On 4 2:07PM ; [facility] an X-ray was performed 42085 Last Documented On 4 2:07PM ; [facility] an MRI was performed [id number] Last Documented On 4 2:07PM ; [facility] Surgical History Last Updated History of Previous Fractures 03/07/2024 Last Documented On 4 2:07PM ; [facility] History of total hip replacement 024 Last Documented On 4 2:07PM ; [facility] History of back surgery 03/17/2018 Last Documented On 4 2:07PM ; [facility] Medical History Includes: Medical History addressed during this encounter Description Last Updated History of arthritis 03/07/2024 Last Documented On 4 2:07PM ; [facility] History of History of Emphysema 03/07/20 24 Last Documented On 4 2:07PM ; [facility] History of Sleep Apnea 03/07/2024 Last Documented On 4 2:07PM ; [facility] Arthritic joint problems 03/17/2018 Last Documented On 4 2:07PM ; [facility] Family History Includes: Family History addressed during this encounter Description Last Updated Diabetes mellitus 03/07/2024 Last Documented On 4 2:07PM ; [facility] Family history of heart disease 03/07/20 24 Last Documented On 4 2:07PM ; [facility] Family history of osteoporosis 4 Last Documented On 4 2:07PM ; [facility] Fraternal history of diabetes mellitus 0 03/17/2018 Last Documented On 4 2:07PM ; [facility] Maternal history of family history of he art disease 03/17/2018 Last Documented On 4 2:07PM ; [facility] Maternal history of osteoporosis 018 Last Documented On 4 2:07PM ; [facility] Paternal aunt's history of rheumatoid ar thritis 03/17/2018 Last Documented On 4 2:07PM ; [facility] Review of Systems Includes: Review [...] Active Last Documented On 5 1:44PM ; [facility] Encounters Encounter Provider Location Date Check-In Time Check- Out Time Diagnosis Post Op Young Neil PA-C [facility] 4 1:58PM 2:38PM Insurance Includes: Active Insurance Policies Plan Name Member ID Group # Subscriber Relationship Effect kar Dates 1 - Medicare Part B [facility] [id number] Antonia Pickens Self 2 - [facility] [id number] Antonia Pickens Self 11/08/2017 - Unknown Clinical Notes Includes: Clinical Notes from this encounter * Progress note Date Encounter Last Documented by 06/13/2024 Post Op Last documented on 06/13/2024; 4:22 PM, Young Neil PA-C; [facility] Active Problems & Conditions - Joint [...] - Ondansetron HCl 4 MG Oral Tablet 3oir6-8w, 5 days, 0 refills - oxyCODONE HCl [...] Care Team - MAGO CORCORAN MD - REHABILITATION PROGRAM COORDINATOR
--- OUTSIDE RECORDS SUMMARY | 2025-09-15 20:36 | XMS_ITS ---
Author Organization [facility] Address [address] [address] Phone Care Team Providers Care Air Traffic Control Supervisor Name Role Phone Rosemarie SINGH, Troy Dubois Unavailable + [phone] JEWELL SINGH, MAGO Unavailable [phone] Problems Includes: Active, inactive, and resolved Problems All Visits Onset Date Resolved Date Provider Condition S tatus Joint Pain Hip Right 08/02/2025 Young Rajan Active Last Documented On 5 1:44PM ; [facility] Joint Pain Hip Bilateral 03/17/2018 Troy Houston MD Active Last Documented On 8 3:22PM ; [facility] Plan of Treatment Findings Encounter Date Patient screened for future fall risk: documentation of any fall with injury in past year Follow Up with Raad Olivares PA-C 08/01/2024 Last Documented On 4 2:37PM ; [facility] Pending Tests Order Diagnosis Results Due Ordering Polly dwyer Lab Hemoglobin A1c 04/19/24 Young cullen PA-C Last Documented On 4 8:14AM ; [facility] Lab CBC With Differential/Platelet 04/19 Young Neil PA-C Last Documented On 4 8:14AM ; [facility] Lab Prothrombin Time (PT) 04/19/24 Ann-Marie Neil PA-C Last Documented On 4 8:14AM ; [facility] Lab PTT, Activated 04/19/24 Young cullen PA-C Last Documented On 4 8:14AM ; [facility] Lab Prealbumin 04/19/24 Young Dinora Rashaad BEACH-C Last Documented On 4 8:14AM ; [facility] Lab Fructosamine 04/19/24 Yonug Farias Maura n PA-C Last Documented On 4 8:14AM ; [facility] Lab MRSA by DA 04/19/24 Young Dinora Rashaad PA-C Last Documented On 4 8:14AM ; [facility] Lab Comp. Metabolic Panel (14) [...] use Last Documented On 5 1:44PM ; [facility] Instructions for patient to see [...] bp Last Documented On 8 2:20PM ; [facility] Medical Equipment - Implanted Devices Includes: Current and historical Devices No Medical Equipment Recorded Medications Includes: Current and historical Medications Current Medications (continue as prescribed) Aspirin 81 81 MG Oral Tablet Chewable 05/02/2024 Provider: Troy ruby MD Diagnosis: once a day Last Documented On 4 8:31AM By Hung Houston ; [facility] traMADol HCl 50 MG Oral Tablet 05/01/2024 Provider: Troy Houston MD Diagnosis: 1-2 po q 4-6h Last Documented On 4 2:09PM By Hung Houston ; [facility] oxyCODONE HCl 5 MG Oral Tablet 05/01/2024 Provider: Troy Houston MD Diagnosis: 1-2 po q 4-6h Last Documented On 4 2:09PM By Hung Houston ; [facility] Tranexamic Acid 650 MG Oral Tablet 05/01/2024 Provid er: Troy Houston MD Diagnosis: as directed TAKE 3 TABLETS O NE TIME A DAY BEGINNING THE EVENING OF SURGERY FOR FOUR DAYS Last Documented On 4 2:09PM By Hung Houston ; [facility] Ondansetron HCl 4 MG Oral Tablet 05/01/2024 Provider : Troy Houston MD Diagnosis: [id number] Last Documented On 4 2:09PM By Hung Houston ; [facility] Meloxicam 15 MG Oral Tablet 05/01/2024 Provider: Troy Houston MD Diagnosis: once a day Last Documented On 4 2:09PM By Hung Houston ; [facility] Colace 100 MG Oral Capsule 05/01/2024 Provider: Danna Houston MD Diagnosis: 1-2 tabs daily Last Documented On 4 2:09PM By Hung Houston ; [facility] Cefadroxil 500 MG Oral Capsule 05/01/2024 Provider: Troy Houston MD Diagnosis: twice a day Last Documented On 4 2:09PM By Hung Houston ; [facility] Acetaminophen 500 MG Oral Tablet 05/01/2024 Provider : Troy Houston MD Diagnosis: 2 three times a day Last Documented On 4 2:09PM By Hung Houston ; [facility] Albuterol Sulfate HFA 108 (9 0 Base) MCG/ACT Inhalation Aerosol Solution 03/14/2024 Provider: Diagnosis: Last Documented On 4 7:33AM By Abdirashid Mayfield ; [facility] DULoxetine HCl 30 MG Oral Capsule Delayed Release Spri nkle 03/14/2024 Provider: Diagnosis: Last Documented On 4 7:34AM By Abdirashid Mayfield ; [facility] Metoprolol Succinate ER 100 MG Oral Tablet Extended Release 24 Hour 03/14/2024 Provider: Diagnosis: Last Documented On 4 7:35AM By Abdirashid Mayfield ; [facility] Benazepril HCl 40 MG Oral Tablet 03/03/2024 Provider : MAGO CORCORAN MD Diagnosis: Last Documented On 4 9:22AM By Paula Lewis ; [facility] Fluticasone Propionate 50 MC G/ACT Nasal Suspension 03/02/2024 Provider: MAGO CORCORAN MD Diagnosis: Last Documented On 4 9:22AM By Paula Lewis ; [facility] Atorvastatin Calcium 40 MG Oral Tablet 03/02/2024 Pr ovider: MAGO CORCORAN MD Diagnosis: Last Documented On 4 9:22AM By Paula Lewis ; [facility] amLODIPine Besylate 10 MG Oral Tablet 03/02/2024 Pro vider: MAGO CORCORAN MD Diagnosis: Last Documented On 4 9:22AM By Paula Lewis ; [facility] Alendronate Sodium 70 MG Oral Tablet 03/02/2024 Prov ider: MAGO CORCORAN MD Diagnosis: Last Documented On 4 9:22AM By Paula Lewis ; [facility] Furosemide 40 MG Oral Tablet 03/02/2024 Provider: MAGO CORCORAN MD Diagnosis: Last Documented On 4 9:22AM By Paula Lewis ; [facility] Clopidogrel Bisulfate 75 MG Oral Tablet 03/02/2024 P rovider: MAGO CORCORAN MD Diagnosis: Last Documented On 4 9:22AM By Paula Lewis ; [facility] Past Medications on file Aspirin 81 81 MG Oral Tablet Chewable 05/01/2024 - 05/02/2024 Provider: Troy ravi MD Diagnosis: twice a day Last Documented On 4 8:26AM By Hung Houston ; [facility] Nabumetone 500 MG Oral Tablet 12/18/2023 - 03/14/2024 Provider: Raul Shannon Md Diagnosis: Last Documented On 4 7:32AM By Abdirashid Mayfield ; [facility] Lisinopril 10MG Oral Tablet 05/20/2018 - 03/07/2024 Pr ovider: MAGO CORCORAN MD Diagnosis: Last Documented On 4 9:21AM By Paula Lewis ; [facility] GNP Vitamin D 400UNIT Oral Tablet Chewable 05/12/2018 - 03/07/2024 Provider: Diagnosis: Last Documented On 4 9:22AM By Paula Lewis ; [facility] TraMADol HCl 50MG Oral [...] On 8 10:34AM By Bella Deleon ; [facility] OxyCODONE HCl 5MG Oral Tablet 03/22/2018 - 03/24/2018 Provider: Troy ravi MD Diagnosis: 1-2 pills every 4-6 hours NE N pain for surgery DO NOT FILL TILL 5--18 Last Documented On 8 10:33AM By Bella Deleon ; [facility] Colace 100MG Oral Capsule 03/22/2018 - 06/20/2018 Provider: Troy ravi MD Diagnosis: 1-2 tabs daily for surgery * *DO NOT FILL TILL 5-18 Last Documented On 8 10:40AM By Bella Deleon ; [facility] Acetaminophen 500MG Oral Tablet 03/22/2018 - 03/30/2018 Provider: Tory Houston MD Diagnosis: 2 three times a day for surg tiffanie DO NOT FILL TILL 5--18 Last Documented On 8 10:40AM By Bella Deleon ; [facility] Mupirocin 2% External Ointment 03/21/2018 - 03/07/2024 Provider: TROY FRANCOIS MD Diagnosis: Last Documented On 4 9:22AM By Paula Lewis ; [facility] Mupirocin 2% External Ointment 03/21/2018 - 03/26/2018 Provider: Troy ravi MD Diagnosis: Apply to nostrils 3 time a d ay 5 days prior to surgery. Last Documented On 8 10:49AM By Jaja Rutledge ; [facility] Amlodipine Besy-Benazepril H Cl 5-20MG Oral Capsule 02/15/2018 - 06/23/2018 Provider: MAGO Queen Diagnosis: Last Documented On 8 2:16PM By Elisha Flores ; [facility] Atorvastatin Calcium 40MG Or al Tablet 02/15/2018 - 03/07/2024 Provider: MAGO Queen Diagnosis: Last Documented On 4 9:22AM By Paula Lewis ; [facility] Medications Administered Includes: Administered Medications in patient's chart No Administered Medications Recorded Vital Signs Includes: Vital Signs from 09/15/2024 through 09/15/2025 Vital Name 08/02/2025 01:44P Height (in) 62 Weight (lb) 115 Body Mass Index 21 Body Surface Area 1.5 Note: ab Last Documented: On 08/02/2025 1:59PM ; [facility] Results Includes: Results from 09/15/2024 through 09/15/2025 No Results Recorded For Specified Dates History of Present Illness History of Present Illness not supported for this document type No History of Present Illness Recorded Social History Description Last Updated No recent change in diet 08/02/2025 Last Documented On 5 2:10PM ; [facility] Not using drugs 08/02/2025 Last Documented On 5 2:10PM ; [facility] Alcohol use 03/07/2024 Last Documented On 4 9:37AM ; [facility] Caffeine use 03/07/2024 Last Documented On 4 9:37AM ; [facility] Not exercising regularly 03/07/2024 Last Documented On 4 9:37AM ; [facility] Yes, current smoker. 03/07/2024 Last Documented On 4 9:37AM ; [facility] Tobacco use 03/07/2024 Last Documented On 4 9:37AM ; [facility] Smoking status Current some day smoker 0 03/17/2018 Last Documented On 8 5:58PM ; [facility] Current smoker 03/17/2018 Last Documented On 8 5:58PM ; [facility] Procedures and Surgical History Includes: Procedures from 09/15/2024 through 09/15/2025 Procedures Code Diagnosis Performing Provider Service Location Service Date PELVIS w/ 2-3 VIEW HIP (RIGHT) 53245 Unilateral primary osteoarthritis, right hip, Presence of right artificial hip joint Young Neil PA-C [facility] 08/02/2025 Last Documented On 5 2:46PM ; [facility] Surgical History Last Updated History of Previous Fractures 03/07/2024 Last Documented On 4 9:37AM ; [facility] History of total hip replacement 024 Last Documented On 4 9:37AM ; [facility] History of back surgery 03/17/2018 Last Documented On 8 5:58PM ; [facility] Medical History Includes: Medical History in patient's chart Description Last Updated History of arthritis 03/07/2024 Last Documented On 4 9:37AM ; [facility] History of History of Emphysema 03/07/20 24 Last Documented On 4 9:37AM ; [facility] History of Sleep Apnea 03/07/2024 Last Documented On 4 9:37AM ; [facility] Arthritic joint problems 03/17/2018 Last Documented On 8 5:58PM ; [facility] Family History Includes: Family History in patient's chart Description Last Updated Diabetes mellitus 03/07/2024 Last Documented On 4 9:37AM ; [facility] Family history of heart disease 03/07/20 24 Last Documented On 4 9:37AM ; [facility] Family history of osteoporosis 4 Last Documented On 4 9:37AM ; [facility] Fraternal history of diabetes mellitus 0 03/17/2018 Last Documented On 8 5:58PM ; [facility] Maternal history of family history of he art disease 03/17/2018 Last Documented On 8 5:58PM ; [facility] Maternal history of osteoporosis 018 Last Documented On 8 5:58PM ; [facility] Paternal aunt's history of rheumatoid ar thritis 03/17/2018 Last Documented On 8 5:58PM ; [facility] Review of Systems Review of Systems not [...] On 5 1:44PM ; [facility] Encounters Includes: Encounters from 09/15/2024 through 09/15/2025 Encounter Provider Location Date Check-In Time Check- Out Time Diagnosis Follow Up Young Neil PA-C [facility] 5 1:34PM 2:08PM Insurance Includes: Active Insurance Policies Plan Name Member ID Group # Subscriber Relationship Effect kar Dates 1 - Medicare Part B [facility] [id number] Antonia Pickens Self 2 - [facility] [id number] Antonia Pickens Self 11/08/2017 - Unknown Clinical Notes Includes: Signed Clinical Notes starting from 10/22/2022 * Progress note Date Encounter Last Documented by 08/02/2025 Follow Up Last documented on 08/02/2025; 2:10 PM, Young Neil PA-C; [facility] Active Problems & Conditions - Joint [...] - Ondansetron HCl 4 MG Oral Tablet [id number], 5 days, 0 refills - oxyCODONE HCl [...] Care Team - MAGO CORCORAN MD - [employer]
--- OUTSIDE RECORDS SUMMARY | 2025-09-15 20:36 | XMS_ITS | Encounter Summary ---
Author Organization [facility] Address [address] [place] [address] Care Team Providers Care Slot Router Name Role Phone Tariq Betancourt MD Primary Care Provider Encounter Details Date Type Department Care Team (Late st Contact Info) Description 07/06/2025 Results Follow-Up [facility] [address] [facility] [address] [place] [address] José Miguel Abdi MD [address] [facility] [address] [place] [address] Social History Tobacco Use Types Packs/Day Years [...] Description 06/24/2026 10:30 AM EDT Office Visit [facility] [address] [facility] [address] [place] [address] José Miguel Abdi MD [address] [facility] [address] [place] [address] documented as of this encounter Visit Diagnoses Not on filedocumented in this encounter Care Teams Slot Router Relationship Specialty Start Date End Date Tariq Betancourt MD [address] [facility] [address] [place] [address] PCP - General Family Medicine 03/06/25 documented as of this encounter
--- OUTSIDE RECORDS SUMMARY | 2025-09-15 20:36 | XMS_ITS | Clinical Summary ---
Author Organization [facility] Address [address] [place] [address] Care Team Providers Care Sinter Feeder Name Role Phone Tariq Betancourt MD Primary [...] - 07/06/2025 11:59 PM EDT Hospital Encounter [facility] NONINVAS[facility] [address] [facility] [address] [place] [address] José Miguel Abdi MD Dyspnea on exertion; Dyslipidemia; Peripheral arterial disease; Other disorders of arteries, arterioles and capillaries in diseases classified elsewhere Discharge Disposition: Home or Self Care 07/06/2025 Results Follow-Up [facility] [address] [facility] [address] [place] [address] José Miguel Abdi MD 07/06/2025 Travel 06/18/2025 10:00 AM EDT Office Visit [facility] [address] [facility] [address] [place] [address] José Miguel Abdi MD Peripheral arterial disease [...] Description 06/24/2026 10:30 AM EDT Office Visit [facility] [address] [place] [address] José Miguel Abdi MD [address] [place] [address] Health Maintenance Due Date Last [...] esult from Last 3 [place] [id number] MEDICARE A & B [facility] [place] [address] Care Teams Sinter Feeder Relationship Specialty Start Date End Date Tariq Betancourt MD [facility] [address] [place] [address] PCP - General Family Medicine 03/06/25
--- OUTSIDE RECORDS SUMMARY | 2025-09-15 20:36 | XMS_ITS | Encounter Summary ---
Author Organization [facility] Address [address] [place] [address] Care Team Providers Care Laborer Salvage Name Role Phone Tariq Betancourt MD Primary Care Provider Encounter Details Date Type Department Care Team (Late st Contact Info) Description 06/12/2025 Telephone [facility] [address] [facility] [address] [place] [address] Mia Patiño APRN [address] [facility] [address] [place] [address] Social History Tobacco Use Types Packs/Day Years [...] Description 06/24/2026 10:30 AM EDT Office Visit [facility] [address] [facility] [address] [place] [address] José Miguel Abdi MD [address] [facility] [address] [place] [address] documented as of this encounter Visit Diagnoses Not on filedocumented in this encounter Care Teams Laborer Salvage Relationship Specialty Start Date End Date Tariq Betancourt MD [address] [facility] [address] [place] [address] PCP - General Family Medicine 03/06/25 documented as of this encounter
--- OUTSIDE RECORDS SUMMARY | 2025-09-15 20:36 | XMS_ITS | Continuity of Care Document ---
Author Organization [place] - [facility] [facility] Address [address] [place] [address] Care Team Providers Care Tank Maker Wood Name Role Phone MAXIMILIANO CORCORAN Primary Care Provider YESENIAJARED Referring Provider LARS MEHTA Radiation Oncologist Assessment No assessment recorded. 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 Non-di agnost ic CT findin gs: [...] nodes. PAGE 1 Signed Report (JEFF NUED) [facility] Name: NIHARIKA NARVAEZ FAY [address] [employer] Phys: Sandra dickinson [place] [address] : 1949 Age: 74 Sex: F Acct: [id number] Loc: Dhaval.PET PHONE #: Exam Date: 2024 Status : DEP CLI FAX #: [phone] Rad# [id number] Unit# [id number] Admit Date: 2024 EXAMS: CPT CODE: [id number] PET W/CT SKULL- MID THIGH 47959 ABDOME N AND PELVIS : Wide range [...] MD PAGE 2 Signed Report (JEFF NUED) [facility] Ce Name: NIHARIKA NARVAEZ FAY [employer] Phys: Sandra dickinson MD,Carrie [facility] [place] [address] : 1949 Age: 74 Sex: F Acct: [id number] Loc: G.PET PHONE #: Exam Date: 2024 Status : DEP CLI FAX #: Rad# [id number] Unit# [id number] Admit Date: 2024 EXAMS: CPT CODE: [id number] 457 PET W/CT SKULL- MID THIGH 88618 CC: Peter Giordano M.D.; Lars dickinson MD Dictat ed Date/T nayeli: 2024 (1209) Techno logist : TIFFANY SHARP, [employer] Transc ribed Date/T nayeli: 2024 (1209) Transc riptio nist: DR.IND DEL VALLE Electr onic Signat ure Date/T nayeli: 2024 (1209) Printe d Date/T nayeli: 2024 (1221) BATCH NO: N/A PAGE 3 Signed Report CC'ed Logic: Orderi ng Provid er: SANDRA SOUSA Attend ing Provid er: SANDRA SOUSA Referr ing Provid er: SANDRA SOUSA Consul ting Provid er: MILLY Queen [address] , [place], [address], 07/30/2025 13:12:15 07/30/20 25 07/30/2025 PET-C T, skull base to mid-t high scan [facility] Name: NIHARIKA NARVAEZ FAY [address] Med[address] l [employer] Phys: Sandra dickinson MD,[place] [address] : 1949 Age: 74 Sex: F Acct: [id number] Loc: G.PET PHONE #: Exam Date: 2024 Status : DEP CLI FAX #: [phone] Rad# [id number] Unit# [id number] Admit Date: 2024 Report Has Been Amende d EXAMS: CPT CODE: [id number] 457 PET W/CT SKULL- MID THIGH 26054 Addend um - 2024 SIGNED 2024 ADDEND UM: [id number] 457 PET/WC TSKMT ADDEND UM #1 Greate [...] NECK: PAGE 1 Signed Report (JEFF NUED) [facility] Name: NIHARIKA NARVAEZ FAY [address] [employer] Phys: Sandra dick[place] [address] : 1949 Age: 74 Sex: F Acct: [id number] Loc: G.PET PHONE #: Exam Date: 2024 Status : DEP CLI FAX #: Rad# [id number] Unit# [id number] Admit Date: 2024 Report Has Been Amende d EXAMS: CPT CODE: [id number] 457 PET W/CT SKULL- MID THIGH 41234 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 [...] CHRIS: PAGE 2 Signed Report (JEFF NUROLDAN) [facility] Name: NIHARIKA NARVAEZ FAY [employer] Phys: Sandra dickinson MD,[employer] [facility] [place] [address] : 1949 Age: 74 Sex: F Acct: [id number] Loc: G.PET PHONE #: [phone] Exam Date: 2024 Status : DEP CLI FAX #: Rad# [id number] Unit# [id number] Admit Date: 2024 Report Has Been Amende d EXAMS: CPT CODE: [id number] 457 PET W/CT SKULL- MID THIGH 56134 Intens e uptake to left upper lobe [...] r PAGE 3 Signed Report (JEFF NUED) [facility] Name: NIHARIKA NARVAEZ FAY [address] [facility] [facility] Phys: Sandra dickinson MD,[facility] [place] [address] : 1949 Age: 74 Sex: F Acct: [id number] Loc: G.PET PHONE #: [phone] Exam Date: 2024 Status : DEP CLI FAX #: Rad# [id number] Unit# [id number] Admit Date: 2024 Report Has Been Amende d EXAMS: CPT CODE: [id number] 457 PET W/CT SKULL- MID THIGH 24404 medici ne bone scan Septem 2024 FINDIN [...] 146. PAGE 4 Signed Report (JEFF NUED) [facility] Name: NIHARIKA NARVAEZ FAY [employer] [facility] [employer] Phys: Sandra dickinson [place] [address] : 1949 Age: 74 Sex: F Acct: [id number] Loc: G.PET PHONE #: [phone] Exam Date: 2024 Status : DEP CLI FAX #: [phone] Rad# [id number] Unit# [id number] Admit Date: 2024 Report Has Been Amende d EXAMS: CPT CODE: [id number] 457 PET W/CT SKULL- MID THIGH 22550 MUSCUL OSKELE FLOYD: Physio logic radiot racer [...] (1209) Techno logist : TIA CHOUDHURY, BS, [employer] Transc ribed Date/T nayeli: 2024 (1209) Transc riptio nist: DR.IND DEL VALLE Electr onic Signat ure Date/T nayeli: 2024 (1200) Printe d Date/T nayeli: 2024 (6975) BATCH NO: N/A PAGE 5 Signed Report CC'ed Logic: Orderi ng Provid er: SANDRA SOUSA Attend ing Provid er: SANDRA SOUSA Referr ing Provid er: SANDRA SOUSA Consul ting Provid er: MILLY Queen [address], [place], [address], 07/31/2025 08:11:40 08/23/2008/23/2025 XR, chest , 2 view [facility] Name: NIHARIKA NARVAEZ FAY [facility] Medica [facility] [address] Phys: Sandra dickinson MD,Carrie [facility] [place] [address] : 1949 Age: 75 Sex: F Acct: [id number] Loc: G.RAD PHONE #: [phone] Exam Date: 2024 Status : REG CLI FAX #: Rad# [id number] Unit# [id number] Admit Date: 2024 EXAMS: CPT CODE: [id number] 698 CHEST 2 VIEWS 75636 CHEST RADIOG RAPHS, 2 VIEWS CLINIC AL [...] Consul ting Provid er: [facility] [address], [place], [address], 08/24/2025 09:07:54 Result Notes None recorded. Problems Name Problem SNOMED Code Status Onset Date Resolution Date Notes Provider Name and Address Organization Details Recorded Time Small cell carcinoma of lung 684277618 Active 025 ZOHRA Mistry [facility] & [place] 5 08:29:03 Tobacco user 905619003 Active 025 ZOHRA Mistry [facility] [place] 5 11:32:20 Problem Notes None recorded. Medical Equipment None Reported. Allergies Allergen ID Allergen Name Allergen Category Reaction Reaction Severity Criticality Documentation Date Start Date Code Code System Note Provider Name and Address Organization Details Recorded Time 619447 cefdinir medicatio n confusion mild high 07/23/2025 95743 RxNorm ZOHRA Mistry [facility] [place] 5 09:11:23 755153 Boniva medicatio n other Not available high 07/23/2025 38252 4 RxNorm Cause s extre me fluct uatio n in BP Mia sifuentes, ZOHRA FOSTER [facility] [place] 5 09:12:20 555468 Avelox medicatio n Not available Not available unabletoasse 07/23/2025 04396 6 RxNorm Mia sifuentes, ZOHRA - [facility] [place] 5 09:12:59 Medications Name Sig Start Date [...] /min 22 /min 171/70 mm[Hg] Mia العلي [facility] [place] 11:32:37 Social History Question Answer Notes LastModified by Organizat ion Details LastModified Time Tobacco Smoking Status Current Every Day Smoker Mia Dumont [facility] [place] 07/23/2025 11:30:06 What Was The Date Of [...] Been Provided? Yes Smoking Cessation Brochures From [facility] [...] ICD10 Code Diagnosis IMO Codes Diagnosis Note [id number] MD HANNA Lozano[address] [address] 07/23/2025 10:12:44 07/23/2025 11:53:43 Small cell carcinoma of lung 162598827 C34.12 9160601024 Tobacco user 945181886 Z 72.0 2128817 [id number] MD HANNA Lozano [address] [address] 07/26/2025 09:56:22 07/26/2025 11:19:24 Small cell carcinoma of lung 201290715 C34.12 3633143970 [id number] MD [facility] [address] [address] 08/06/2025 12:45:36 08/06/2025 14:33:26 Small cell carcinoma of lung 835590810 C34.12 7504168494 [id number] Lars [facility] [place] [address] 08/07/2025 12:49:55 08/07/2025 13:36:59 Small cell carcinoma of lung 045627872 C34.12 6101822580 [id number] Lars [facility] [place] [address] [place] [address] 08/08/2025 12:53:10 08/08/2025 16:24:49 Small cell carcinoma of lung 784078410 C34.12 3078992150 [id number] Lars Mehta MD [place] [address] [place] [address] 08/09/2025 12:46:59 08/09/2025 15:49:21 Small cell carcinoma of lung 480924962 C34.12 [id number] Health Concerns Section Related Observation LastModified by Organization Detai ls LastModified Time None Recorded Concern Status LastModified by Organization Details LastModified Time None Recorded Payers Encounter Date Sequence Insurance Name Policy Number Policy Baxter Covered Member ID Baxter Member ID Guarantor Name 08/09/2025 1 [place] Niharika Farias Celio [id number] Niharika Narvaez 08/09/2025 2 [facility] Niharika Farias Celio [id number] Niharika Narvaez Notes Date Note Type Note [...] Plavix and aspirin. Lars Mehta MD [address] [facility],[address], [place], [address], [facility] 08/13/2025 11:40:35 OBGyn Episode No OBEpisode recorded.
--- NOTE | 2025-09-15 22:01 | EXP.PN ---
Subjective *Date: 09/16/25 *Time: 16:06 Interval history: Patient is feeling much better today, breathing easier. Discussed with Dr. Francis, recommends patient being monitored throughout the weekend to get an echo on Wednesday for new onset heart failure. Exam Data for Last 24 hours Vital signs and Labs for Last 24 Hours: Temp Pulse Resp BP Pulse Ox O2 Del Method O2 Flow Rate 98.6 F 99 H 16 118/62 90 L Nasal Cannula 3 09/15/25 20:00 09/15/25 20:00 09/15/25 20:00 09/15/25 20:00 09/15/25 20:00 09/15/25 20:00 09/15/25 20:00 FiO2 35 09/15/25 06:35 Laboratory Results - last 24 hr 09/15/25 00:58: Troponin I 0.15 H 09/15/25 01:10: SARS-CoV-2 (PCR) Not detected, Influenza Type A (PCR) Not detected, Influenza Type B (PCR) Not detected, RSV (PCR) Not detected, Rhinovirus (PCR) Not detected 09/15/25 01:16: Urine Color Yellow, Urine Appearance Clear, Urine pH 6.0, Ur Specific [place] 1.015, Urine Protein Negative, Urine Glucose (UA) Negative, Urine Ketones Negative, Urine Blood Negative, Urine Nitrate Negative, Urine Bilirubin Negative, Urine Urobilinogen 0.2, Ur Leukocyte Esterase Negative, Urine RBC None, Urine WBC 3-5, Ur Squamous Epith Cells 3-5, Urine Bacteria None 09/15/25 06:24: WBC 6.3, RBC 2.98 L, Hgb 8.7 L, Hct 27.4 L, MCV 91.9, MCH 29.2, MCHC 31.8, RDW 13.7, Plt Count 437 H, MPV 9.1, Neut % (Auto) 77.1, Lymph % (Auto) 8.2 L, [place] % (Auto) 10.9 H, Eos % (Auto) 2.7, Baso % (Auto) 0.5, Neut # (Auto) 4.9, Lymph # (Auto) 0.5 L, [place] # (Auto) 0.7, Eos # (Auto) 0.2, Baso # (Auto) 0.0, Total Counted 100, Neutrophils % (Manual) 75, Lymphocytes % (Manual) 10, Monocytes % (Manual) 14 H, Eosinophils % (Manual) 1, Platelet Estimate Slight increase, RBC Morphology Normal, Sodium 133 L, Potassium 3.7, Chloride 93 L, Carbon Dioxide 37 H, Anion Gap 6.7, BUN 13, Creatinine 0.70, Estimated Creat Clear 40, Estimated GFR 81, Est GFR ( Amer) 98, Glucose 91 D, Calcium 9.7, Troponin I 0.15 H I & O for Last 24 hours: Intake & Output 09/12/25 09/13/25 09/14/25 09/15/25 23:59 23:59 23:59 23:59 Intake Total 580 / 580 Output Total 1750 / 1750 Balance -1170 / -1170 Weight 54.431 kg 53.637 kg Microbiology Reports for the Last 24 Hours: Microbiology 09/14/25 21:38 Blood Blood Culture - Preliminary NO GROWTH AFTER 24 HOURS 09/14/25 21:30 Blood Blood Culture - Preliminary NO GROWTH AFTER 24 HOURS Constitutional Constitutional: no acute distress *Routine HEENT Exam Head: Present normocephalic Eye: Present EOMI and PERRL ENT: Present mucous membranes moist *Routine Neck Exam Neck: Present supple; Absent lymphadenopathy *Routine Respiratory Exam Respiratory: Present CTA bilaterally *Routine Cardiovascular Exam Cardiovascular: Present RRR *Routine Abdominal Exam Abdominal: Present soft and normoactive bowel sounds; Absent tenderness *Routine Extremities Exam Extremities: Absent cyanosis, clubbing or edema *Routine Skin Exam Skin: Present warm; Absent rash *Routine Neurological Exam Neurological: Present alert and oriented X3 Assessment and Plan *Assessment and plan (1) Acute on chronic respiratory failure with hypoxia and hypercapnia: Status: Acute Category: Medical Code(s): J96.21 - Acute and chronic respiratory failure with hypoxia; J96.22 - Acute and chronic respiratory failure with hypercapnia (2) Anemia: Status: Acute Qualifiers: Anemia type: unspecified type Qualified Code(s): D64.9 - Anemia, unspecified Category: Medical Code(s): D64.9 - Anemia, unspecified (3) Elevated troponin: Status: Acute Category: Medical Code(s): R79.89 - Other specified abnormal findings of blood chemistry (4) Elevated brain natriuretic peptide (BNP) level: Status: Acute Category: Medical Code(s): R79.89 - Other specified abnormal findings of blood chemistry (5) Lung cancer: Status: Acute Qualifiers: Laterality: unspecified laterality Lung location: upper lobe of lung Qualified Code(s): C34.10 - Malignant neoplasm of upper lobe, unspecified bronchus or lung Category: Medical Code(s): C34.90 - Malignant neoplasm of unspecified part of unspecified bronchus or lung Plan Antonia Pickens is a 75-year-old female with medical history significant for 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 #Acute on chronic hypoxic respiratory failure #New onset heart failure, unknown type #NSTEMI, likely type II ? Presented with progressive shortness of breath, found to have findings consistent with pulmonary edema on CTA chest on admission. BNP 8210. ? Troponins plateaued at 0.15, EKG showing nonspecific T wave abnormalities. No chest pain. Former smoker. ? Patient recently completed radiation therapy for left upper lobe SCLC about a month ago at [facility]. Unfortunately, was not efficacious. ? Patient feeling better today, has diuresed quite well. However, given new onset heart failure in the setting of carcinoma will monitor through the weekend for an echo on Wednesday to evaluate for cardiomyopathy. ? Continue IV Lasix 40 mg daily. Creatinine stable at 0.70. Diuresing well. ? Started aspirin 81 mg. ? Follow-up ECHO Wednesday. ? Cardiology consulted, pending further recommendations Wednesday. ? Continuous cardiac telemetry. #Left upper lobe small cell lung carcinoma #Former smoker ? Has been following Dr. Rojas with oncology. Patient recently completed radiation therapy for left upper lobe SCLC about a month ago at [facility]. Unfortunately, was not efficacious. ? Followed up with Dr. Rojas on 09/05/2025, patient is not a good candidate for chemotherapy. ? Being considered for durvalumab immunotherapy, first infusion is to start this coming Wednesday. #COPD ? Started DuoNebs every 6 hours. Will trial Anoro Ellipta. #CAD ? Continue home Plavix, metoprolol. #Normocytic anemia ? Hemoglobin 8.7, MCV 92.2. ? Follow-up iron panel, B12, folate. #Hypertension ? Hold home amlodipine, benazepril, metoprolol due to normal/soft pressures at this time. #Anxiety/depression ? Continue home duloxetine 60 mg. Full code DVT prophylaxis: Lovenox 40 mg Home medications: Restarted, holding a few as above.
[2025-09-16] VITALS (13 sets, daily range): BP systolic 121–168; BP diastolic 55–76; PULSE 85–105; RESP 14–26; TEMP 36.4–37.5; O2SAT 90–98; BMI 20.7
--- NOTE | 2025-09-16 04:10 | PC.NURSE ---
Patient is alert and oriented x4. She was observed to be resting in bed with eyes closed, respirations even and unlabored, and no apparent distress throughout the majority of the night. Family member remains at bedside. Tolerates placement of nasal cannula, 3 L oxygen flow, during wakeful periods; placed onto BiPAP at 00:17 by Joan ALANIZ for bedtime use. Oxygen saturations have remained > 90%. Heart rate slightly tachycardic. She has not had any complaints such as worsening shortness of breath, dizziness, irregular respirations, chest pain, nausea, etc. this shift. No swelling in extremities noted. Physical assessment performed as appropriately for this shift (see nursing shift biophysical intervention). Scheduled medications administered per JAN. Lactulose (see provider notification intervention for 20:01) was given for constipation concerns; the patient has not had a bowel movement yet/during this shift thus far. Continues to utilize the bedside commode for elimination needs. At this time, the patient remains resting in bed with no new needs vocalized. Call light is within reach.
[2025-09-16] MEDS: IPRATROPIUM/ALBUTEROL 3 ML NEB IH ×4 (07:22→23:57)
[2025-09-16 08:11] LABS: Hematocrit 27.1 % (37.0-47.0); Hemoglobin 8.6 g/dL (12.2-16.2); Immature Granulocytes % 0.6 %; Mean Corpuscular HGB Conc 31.7 g/dL (31.8-35.4); Mean Corpuscular Hemoglobin 29.3 pg (27.0-31.2); Mean Corpuscular Volume 92.2 fl (81-99); Nucleated Red Blood Cells % 0.3 %; Platelet Count 402 K/mm3 (142-424); Red Blood Count 2.94 M/mm3 (4.20-5.40); Red Cell Distribution Width-SD 46.7 fL; White Blood Count 7.0 K/mm3 (4.8-10.8)
[2025-09-16 08:32] LABS: Anion Gap 6.5 mEq/L (5-15); Blood Urea Nitrogen 18 mg/dl (7-17); Calcium 9.5 mg/dl (8.4-10.2); Carbon Dioxide 37 mmol/L (22.0-30.0); Chloride 93 mmol/L (98-107); Creatinine Clearance Estimated 38 mL/min (50-200); Creatinine,Serum 0.70 mg/dl (0.52-1.04); Estimated Glomerular Filt Rate 81 ml/min (>60); GFR (African American) 98 ML/MIN (>60); Glucose 90 mg/dl (74-100); Potassium 3.5 mmoL/L (3.5-5.1); Sodium 133 mmol/L (136-145)
[2025-09-16] MEDS: METOPROLOL SUCCINATE XL 100MG TABLET 100 MG PO (08:55)
[2025-09-16] MEDS: FUROSEMIDE 40MG/4ML VIAL 40 MG IV (08:56)
[2025-09-16] MEDS: CLOPIDOGREL 75MG TAB 75 MG PO (08:56)
[2025-09-16] MEDS: UMECLIDINIUM/VILANTEROL 62.5/25MCG INHALER 1 PUFF IH (08:56)
[2025-09-16] MEDS: POLYETHYLENE GLYCOL 3350 17 GM PACKET PO (13:42)
--- NOTE | 2025-09-16 13:54 | XR_ITS ---
PROCEDURE INFORMATION: Exam: XR Chest Exam date and time: 09/16/2025 2:31 PM Age: 75 years old Clinical indication: Other: More weak, SOB today TECHNIQUE: Imaging protocol: Radiologic exam of the chest. Views: 1 view. COMPARISON: CT ANGIO CHEST PE PROTOCOL 09/14/2025 9:47 PM FINDINGS: Lungs: Hyperexpanded lung david consistent with COPD. Opacity in the left base may represent atelectasis or pneumonia.. Pleural spaces: Unremarkable. No pleural effusion. No pneumothorax. Heart/Mediastinum: Unremarkable. No cardiomegaly. Bones/joints: Unremarkable. IMPRESSION: Opacity in the left base may represent atelectasis or pneumonia..
--- NOTE | 2025-09-16 16:34 | EXP.PN ---
Subjective *Date: 09/16/25 *Time: 16:34 Interval history: Patient feels worn out today and weak, slightly increased work of breathing. CXR suggestive of left lower lobe pneumonia, started empiric IV Zosyn. Pending further cardiology, pulmonology recommendations. Exam Data for Last 24 hours Vital signs and Labs for Last 24 Hours: Temp Pulse Resp BP Pulse Ox O2 Del Method O2 Flow Rate 98.3 F 93 H 18 121/55 L 91 L Nasal Cannula 3 09/16/25 12:00 09/16/25 14:46 09/16/25 12:00 09/16/25 12:00 09/16/25 14:46 09/16/25 15:00 09/16/25 15:00 FiO2 35 09/16/25 07:22 Laboratory Results - last 24 hr 09/16/25 06:53: WBC 7.0, RBC 2.94 L, Hgb 8.6 L, Hct 27.1 L, MCV 92.2, MCH 29.3, MCHC 31.7 L, RDW 13.9, Plt Count 402, MPV 9.3, Neut % (Auto) 74.3, Lymph % (Auto) 8.3 L, [place] % (Auto) 13.9 H, Eos % (Auto) 2.6, Baso % (Auto) 0.3, Neut # (Auto) 5.2, Lymph # (Auto) 0.6 L, [place] # (Auto) 1.0, Eos # (Auto) 0.2, Baso # (Auto) 0.0, Sodium 133 L, Potassium 3.5, Chloride 93 L, Carbon Dioxide 37 H, Anion Gap 6.5, BUN 18 H D, Creatinine 0.70, Estimated Creat Clear 38, Estimated GFR 81, Est GFR ( Amer) 98, Glucose 90, Calcium 9.5 I & O for Last 24 hours: Intake & Output 09/13/25 09/14/25 09/15/25 09/16/25 23:59 23:59 23:59 23:59 Intake Total 580 / 760 700 / 700 Output Total 1750 / 1750 0 / 0 Balance -1170 / -990 700 / 700 Weight 54.431 kg 53.637 kg 51.256 kg Microbiology Reports for the Last 24 Hours: Microbiology 09/15/25 01:16 Urine,Clean Catch Urine Culture - Final NO GROWTH AFTER 48 HOURS 09/14/25 21:38 Blood Blood Culture - Preliminary NO GROWTH AFTER 24 HOURS 09/14/25 21:30 Blood Blood Culture - Preliminary NO GROWTH AFTER 24 HOURS Constitutional Constitutional: no acute distress *Routine HEENT Exam Head: Present normocephalic Eye: Present EOMI and PERRL ENT: Present mucous membranes moist *Routine Neck Exam Neck: Present supple; Absent lymphadenopathy *Routine Respiratory Exam Respiratory: Present CTA bilaterally *Routine Cardiovascular Exam Cardiovascular: Present RRR *Routine Abdominal Exam Abdominal: Present soft and normoactive bowel sounds; Absent tenderness *Routine Extremities Exam Extremities: Absent cyanosis, clubbing or edema *Routine Skin Exam Skin: Present warm; Absent rash *Routine Neurological Exam Neurological: Present alert and oriented X3 Assessment and Plan *Assessment and plan (1) Acute on chronic respiratory failure with hypoxia and hypercapnia: Status: Acute Category: Medical Code(s): J96.21 - Acute and chronic respiratory failure with hypoxia; J96.22 - Acute and chronic respiratory failure with hypercapnia (2) Anemia: Status: Acute Qualifiers: Anemia type: unspecified type Qualified Code(s): D64.9 - Anemia, unspecified Category: Medical Code(s): D64.9 - Anemia, unspecified (3) Elevated troponin: Status: Acute Category: Medical Code(s): R79.89 - Other specified abnormal findings of blood chemistry (4) Elevated brain natriuretic peptide (BNP) level: Status: Acute Category: Medical Code(s): R79.89 - Other specified abnormal findings of blood chemistry (5) Lung cancer: Status: Acute Qualifiers: Laterality: unspecified laterality Lung location: upper lobe of lung Qualified Code(s): C34.10 - Malignant neoplasm of upper lobe, unspecified bronchus or lung Category: Medical Code(s): C34.90 - Malignant neoplasm of unspecified part of unspecified bronchus or lung Plan Antonia Pickens is a 75-year-old female with medical history significant for 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 #Acute on chronic hypoxic respiratory failure #New onset heart failure, unknown type #NSTEMI, likely type II ? Presented with progressive shortness of breath, found to have findings consistent with pulmonary edema on CTA chest on admission. BNP 8210. ? Troponins plateaued at 0.15, EKG showing nonspecific T wave abnormalities. No chest pain. Former smoker. ? Patient recently completed radiation therapy for left upper lobe SCLC about a month ago at [facility]. Unfortunately, was not efficacious. ? Given new onset heart failure in the setting of carcinoma will monitor through the weekend for an echo on Wednesday to evaluate for cardiomyopathy. ? Creatinine stable at 0.70, the patient more weak today and urine is dark yellow/concentrated. Will transition from IV to p.o. Lasix 40 mg. ? Continue Plavix 75 mg. ? Follow-up ECHO Wednesday. ? Cardiology consulted, pending further recommendations Wednesday. ? Continuous cardiac telemetry. #Community-acquired pneumonia ? Patient feels worn out today and weak, slightly increased work of breathing. ? CXR suggestive of left lower lobe pneumonia, heart rate in the 90s - 100s today. ? Started IV Zosyn 3.375 g every 8 hours empirically. Allergic to cephalosporins, fluoroquinolones. ? Follow-up sputum, blood cultures, full respiratory panel. ? Follow-up CRP, procalcitonin. UA normal. ? Pulmonology consulted, pending further recommendations. #Left upper lobe small cell lung carcinoma #Former smoker ? Has been following Dr. Rojas with oncology. Patient recently completed radiation therapy for left upper lobe SCLC about a month ago at [facility]. Unfortunately, was not efficacious. ? Followed up with Dr. Rojas on 09/05/2025, patient is not a good candidate for chemotherapy. ? Being considered for durvalumab immunotherapy, first infusion is to start this coming Wednesday. #COPD ? Continue DuoNebs every 6 hours. Started Pulmicort twice daily, discontinue Anoro Ellipta. #CAD ? Continue home Plavix, metoprolol. #Normocytic anemia ? Hemoglobin 8.7, MCV 92.2 on admission. ? Follow-up iron panel, B12, folate. #Hypertension ? Hold home amlodipine, benazepril, metoprolol due to normal/soft pressures at this time. #Anxiety/depression ? Continue home duloxetine 60 mg. Full code DVT prophylaxis: Lovenox 40 mg Home medications: Restarted, holding a few as above.
[2025-09-16 16:50] LABS: Procalcitonin 0.072 ng/mL (0.0-2.0)
[2025-09-16] MEDS: PIPERCILLIN/TAZO 3.375 GM in 0.9 % SODIUM CHLORIDE 50 ML IV ×2 (17:13→23:50)
[2025-09-16 17:20] LABS: Adenovirus,PCR Not Detected (NotDetected); Chlamydophila Pneumoniae, PCR Not Detected (NotDetected); Coronavirus 19, PCR Not Detected (NotDetected); Coronovirus HKU1,PCR Not Detected (NotDetected); Influenza A, PCR Not Detected (NotDetected); Influenza AH1, 2009 Not Detected (NotDetected); Influenza AH1, PCR Not Detected (NotDetected); Influenza AH3,PCR Not Detected (NotDetected); Influenza B, PCR Not Detected (NotDetected); Mycoplasma Pneumoniae, PCR Not Detected (NotDetected); Parainfluenza 1, PCR Not Detected (NotDetected); Parainfluenza 2, PCR Not Detected (NotDetected); Parainfluenza 3, PCR Not Detected (NotDetected); Parainfluenza 4, PCR Not Detected (NotDetected)
--- NOTE | 2025-09-16 17:34 | PC.NURSE ---
pt resting supine in bed with family at bedside. requiring 3LNC to maintain sats >90%. no complaints of pain. intermittent nonproductive cough. sputum sample ordered and pt provided with cup. full resp panel collected this shift. lovenox for VTE. abx given per jan. able to use bedside commode with assistance. no needs at this time. call light within reach.
[2025-09-16 17:36] LABS: C-Reactive Protein 197.2 mg/L (0-4)
[2025-09-16 17:37] LABS: Ferritin 26.3 ng/ml (11.1-264)
[2025-09-16] MEDS: BUDESONIDE 0.5MG/2ML NEB 0.5 MG IH (18:10)
[2025-09-16] MEDS: SODIUM CHLORIDE 3% 15ML NEB 3 ML IH (18:10)
[2025-09-16] MEDS: ATORVASTATIN 40MG TABLET 40 MG PO (20:26)
[2025-09-17] VITALS (11 sets, daily range): BP systolic 118–138; BP diastolic 59–67; PULSE 80–94; RESP 16–21; TEMP 36.6–36.7; O2SAT 90–99; BMI 21.0
--- NOTE | 2025-09-17 04:15 | PC.NURSE ---
Patient is alert and oriented x4. She was observed to be resting in bed with eyes closed, respirations even and unlabored, and no apparent distress throughout the majority of the night. Family member has remained at the bedside. Tolerates 3 L of oxygen via nasal cannula while awake, tolerates BiPAP placement for bedtime use without any difficulties. Oxygen saturations remain > 90%. No productive cough this shift, so, a sputum sample remains uncollected. Patient is aware of need for collection. Scheduled medications administered per JAN. residential monitor and continuous pulse ox remain intact. Physical assessment performed as appropriately for this shift (see nursing shift biophysical intervention). Bedside commode utilized for elimination needs. At this time, the patient remains resting in bed without any complaints. No acute changes noted thus far. Call light within reach.
[2025-09-17] MEDS: BUDESONIDE 0.5MG/2ML NEB 0.5 MG IH (06:51)
[2025-09-17] MEDS: IPRATROPIUM/ALBUTEROL 3 ML NEB IH ×2 (06:51→15:36)
[2025-09-17 06:53] LABS: Hematocrit 27.5 % (37.0-47.0); Hemoglobin 8.7 g/dL (12.2-16.2); Immature Granulocytes % 1.0 %; Mean Corpuscular HGB Conc 31.6 g/dL (31.8-35.4); Mean Corpuscular Hemoglobin 29.3 pg (27.0-31.2); Mean Corpuscular Volume 92.6 fl (81-99); Nucleated Red Blood Cells % 0 %; Platelet Count 404 K/mm3 (142-424); Red Blood Count 2.97 M/mm3 (4.20-5.40); Red Cell Distribution Width-SD 47.8 fL; White Blood Count 7.2 K/mm3 (4.8-10.8)
[2025-09-17 06:59] LABS: Anion Gap 5.4 mEq/L (5-15); Blood Urea Nitrogen 22 mg/dl (7-17); Calcium 9.5 mg/dl (8.4-10.2); Carbon Dioxide 38 mmol/L (22.0-30.0); Chloride 93 mmol/L (98-107); Creatinine Clearance Estimated 39 mL/min (50-200); Creatinine,Serum 0.80 mg/dl (0.52-1.04); Estimated Glomerular Filt Rate 70 ml/min (>60); GFR (African American) 84 ML/MIN (>60); Glucose 100 mg/dl (74-100); Potassium 3.4 mmoL/L (3.5-5.1); Sodium 133 mmol/L (136-145)
[2025-09-17 07:45] LABS: C-Reactive Protein 193.9 mg/L (0-4)
--- NOTE | 2025-09-17 08:01 | P.PN_ITS ---
Subjective *Date: 09/17/25 *Time: 09:00 Interval history: Daughter is at bedside and stayed the night. She states Antonia did rest well. She remains on BiPAP. Patient does also indicate that she is doing better. She feels that her breathing is satisfactory. She denies any pain. Laboratory data this a.m. show a hemoglobin of 8. 7 and hematocrit of 27.5. White blood cell count is 7200. Blood chemistry shows sodium of 133 potassium is 3.4. BUN is 22 and creatinine is 0.8. Exam Data for Last 24 hours Vital signs and Labs for Last 24 Hours: Temp Pulse Resp BP Pulse Ox O2 Del Method O2 Flow Rate 97.6 F 83 18 118/59 L 96 BiPAP 3 09/16/25 20:00 09/17/25 06:51 09/17/25 00:00 09/17/25 00:00 09/17/25 06:51 09/17/25 06:55 09/16/25 21:00 FiO2 35 09/17/25 06:51 Laboratory Results - last 24 hr 09/16/25 06:50: Ferritin 26.3 D, C-Reactive Protein 197.2 H, Procalcitonin 0.072 09/16/25 06:53: WBC 7.0, RBC 2.94 L, Hgb 8.6 L, Hct 27.1 L, MCV 92.2, MCH 29.3, MCHC 31.7 L, RDW 13.9, Plt Count 402, MPV 9.3, Neut % (Auto) 74.3, Lymph % (Auto) 8.3 L, [place] % (Auto) 13.9 H, Eos % (Auto) 2.6, Baso % (Auto) 0.3, Neut # (Auto) 5.2, Lymph # (Auto) 0.6 L, [place] # (Auto) 1.0, Eos # (Auto) 0.2, Baso # (Auto) 0.0, Sodium 133 L, Potassium 3.5, Chloride 93 L, Carbon Dioxide 37 H, Anion Gap 6.5, BUN 18 H D, Creatinine 0.70, Estimated Creat Clear 38, Estimated GFR 81, Est GFR ( Amer) 98, Glucose 90, Calcium 9.5 09/16/25 17:12: Chlamy pneumoniae PCR Not detected, Adenovirus (PCR) Not detected, B. pertussis DNA (PCR) Not detected, Coronavirus OC43 (PCR) Not detected, Coronavirus HKU1 (PCR) Not detected, Coronavirus 229E (PCR) Not detected, SARS-CoV-2 (PCR) Not detected, Coronavirus NL63 (PCR) Not detected, Human Metapneumovir PCR Not detected, Influenza A (H1) PCR Not detected, Influ A (H1N1/09) PCR Not detected, Influenza A (H3) PCR Not detected, Influenza Type A (PCR) Not detected, Influenza Type B (PCR) Not detected, M. pneumoniae (PCR) Not detected, Parainfluenza 1 (PCR) Not detected, Parainfluenza 2 (PCR) Not detected, Parainfluenza 3 (PCR) Not detected, Parainfluenza 4 (PCR) Not detected, RSV (PCR) Not detected, Entero/Rhino (PCR) Not detected 09/17/25 06:07: WBC 7.2, RBC 2.97 L, Hgb 8.7 L, Hct 27.5 L, MCV 92.6, MCH 29.3, MCHC 31.6 L, RDW 14.2, Plt Count 404, MPV 9.2, Neut % (Auto) 75.6, Lymph % (Auto) 9.0 L, [place] % (Auto) 11.1 H, Eos % (Auto) 2.9, Baso % (Auto) 0.4, Neut # (Auto) 5.4, Lymph # (Auto) 0.7, [place] # (Auto) 0.8, Eos # (Auto) 0.2, Baso # (Auto) 0.0, Sodium 133 L, Potassium 3.4 L, Chloride 93 L, Carbon Dioxide 38 H, Anion Gap 5.4, BUN 22 H, Creatinine 0.80, Estimated Creat Clear 39, Estimated GFR 70, Est GFR ( Amer) 84, Glucose 100, Calcium 9.5, C-Reactive Protein 193.9 H I & O for Last 24 hours: Intake & Output 09/14/25 09/15/25 09/16/25 09/17/25 11:59 11:59 11:59 11:59 Intake Total 240 / 240 760 / 760 720 / 720 Output Total 1450 / 1450 300 / 300 800 / 800 Balance -1210 / -1210 460 / 460 -80 / -80 Weight 118 lb 4 oz 113 lb 114 lb 6.4 oz Microbiology Reports for the Last 24 Hours: Microbiology 09/14/25 21:38 Blood Blood Culture - Preliminary NO GROWTH AFTER 48 HOURS 09/14/25 21:30 Blood Blood Culture - Preliminary NO GROWTH AFTER 48 HOURS 09/15/25 01:16 Urine,Clean Catch Urine Culture - Final NO GROWTH AFTER 48 HOURS Constitutional Constitutional: no acute distress Comments: Awaken for assessment. *Routine Respiratory Exam Respiratory: Present decreased breath sounds (Posteriorly bilaterally) *Routine Cardiovascular Exam Cardiovascular: Present RRR (Monitor showing sinus rhythm) *Routine Abdominal Exam Abdominal: Present soft and normoactive bowel sounds; Absent tenderness *Routine Extremities Exam Extremities: Absent edema or calf tenderness *Routine Neurological Exam Neurological: Present alert Comments: Nods head yes and no appropriately Assessment and Plan *Assessment and plan (1) Acute on chronic respiratory failure with hypoxia and hypercapnia: Status: Acute Category: Medical Code(s): J96.21 - Acute and chronic respiratory failure with hypoxia; J96.22 - Acute and chronic respiratory failure with hypercapnia (2) Anemia: Status: Acute Qualifiers: Anemia type: unspecified type Qualified Code(s): D64.9 - Anemia, unspecified Category: Medical Code(s): D64.9 - Anemia, unspecified (3) Elevated troponin: Status: Acute Category: Medical Code(s): R79.89 - Other specified abnormal findings of blood chemistry (4) Elevated brain natriuretic peptide (BNP) level: Status: Acute Category: Medical Code(s): R79.89 - Other specified abnormal findings of blood chemistry (5) Lung cancer: Status: Acute Qualifiers: Laterality: unspecified laterality Lung location: upper lobe of lung Qualified Code(s): C34.10 - Malignant neoplasm of upper lobe, unspecified bronchus or lung Category: Medical Code(s): C34.90 - Malignant neoplasm of unspecified part of unspecified bronchus or lung (6) Pneumonia: Status: Acute Category: Medical Code(s): J18.9 - Pneumonia, unspecified organism (7) Hypokalemia: Status: Acute Category: Medical Code(s): E87.6 - Hypokalemia Plan Family is adamant that they do not want cardiology to see her here. Pulmonology has been consulted. Will continue to treat for pneumonia. She is receiving p.o. potassium. Echocardiogram is being done at present. Dr. Syed entry - Saw patient, agree with above note.
--- OUTSIDE RECORDS SUMMARY | 2025-09-17 08:50 | XMS_ITS | Clinical Summary ---
Author Organization [facility] Address [address] [place] [address] Phone Care Team Providers Care Dbas Name Role Phone Rosemarie SINGH, Ezequiel Dubois Unavailable U jose alejandro CORCORAN MD, MAGO Unavailable [phone] Reason for Visit and Chief Complaint [Patient Encounter] Problems Includes: Problems addressed during this encounter and other active Problems All Visits Onset Date Resolved Date Provider Condition S tatus Joint Pain Hip Right 08/02/2025 Young Rajan Active Last Documented On 5 1:44PM ; [facility], [facility] Joint Pain Hip Bilateral 03/17/2018 Ezequiel Houston MD Active Last Documented On 8 3:22PM ; [facility], [facility] Plan of Treatment No Plan of [...] On 4 8:31AM By Hung Houston ; [facility], [facility] traMADol HCl 50 MG Oral Tablet 05/01/2024 Provider: Ezequiel Houston MD Diagnosis: 1-2 po q 4-6h Last Documented On 4 2:09PM By Hung Houston ; [facility], [facility] oxyCODONE HCl 5 MG Oral Tablet 05/01/2024 Provider: Ezequiel Houston MD Diagnosis: 1-2 po q 4-6h Last Documented On 4 2:09PM By Hung Houston ; [facility], [facility] Tranexamic Acid 650 MG Oral Tablet 05/01/2024 Provid er: Ezequiel Houston MD Diagnosis: as directed TAKE 3 TABLETS O NE TIME A DAY BEGINNING THE EVENING OF SURGERY FOR FOUR DAYS Last Documented On 4 2:09PM By Hung Houston ; [facility], [facility] Ondansetron HCl 4 MG Oral Tablet 05/01/2024 Provider : Ezequiel Houston MD Diagnosis: 7gmj1-6y Last Documented On 4 2:09PM By Hung Houston ; [facility], [facility] Meloxicam 15 MG Oral Tablet 05/01/2024 Provider: Ezequiel Houston MD Diagnosis: once a day Last Documented On 4 2:09PM By Hung Houston ; [facility], [facility] Colace 100 MG Oral Capsule 05/01/2024 Provider: Danna Houston MD Diagnosis: 1-2 tabs daily Last Documented On 4 2:09PM By Hung Houston ; [facility], [facility] Cefadroxil 500 MG Oral Capsule 05/01/2024 Provider: Ezequiel Houston MD Diagnosis: twice a day Last Documented On 4 2:09PM By Hung Houston ; [facility], [facility] Acetaminophen 500 MG Oral Tablet 05/01/2024 Provider : Ezequiel Houston MD Diagnosis: 2 three times a day Last Documented On 4 2:09PM By Hung Houston ; [facility], [facility] Albuterol Sulfate HFA 108 (9 0 Base) MCG/ACT Inhalation Aerosol Solution 03/14/2024 Provider: Diagnosis: Last Documented On 4 7:33AM By Abdirashid Mayfield ; [facility], [facility] DULoxetine HCl 30 MG Oral Capsule Delayed Release Spri nkle 03/14/2024 Provider: Diagnosis: Last Documented On 4 7:34AM By Abdirashid Mayfield ; [facility], [facility] Metoprolol Succinate ER 100 MG Oral Tablet Extended Release 24 Hour 03/14/2024 Provider: Diagnosis: Last Documented On 4 7:35AM By Abdirashid Mayfield ; [facility] Benazepril HCl 40 MG Oral Tablet 03/03/2024 Provider : MAGO CORCORAN MD Diagnosis: Last Documented On 4 9:22AM By Paula Lewis ; [facility] Fluticasone Propionate 50 MC G/ACT Nasal Suspension 03/02/2024 Provider: MAGO CORCORAN MD Diagnosis: Last Documented On 4 9:22AM By Paula Lewis ; [facility] Atorvastatin Calcium 40 MG Oral Tablet 03/02/2024 Pr ovider: MAGO CORCORAN MD Diagnosis: Last Documented On 4 9:22AM By Paula Lewis ; [facility], [facility] amLODIPine Besylate 10 MG Oral Tablet 03/02/2024 Pro vider: MAGO CORCORAN MD Diagnosis: Last Documented On 4 9:22AM By Paula Lewis ; [facility], [facility] Alendronate Sodium 70 MG Oral Tablet 03/02/2024 Prov ider: MAGO CORCORAN MD Diagnosis: Last Documented On 4 9:22AM By Paula Lewis ; [facility] Furosemide 40 MG Oral Tablet 03/02/2024 Provider: MAGO CORCORAN MD Diagnosis: Last Documented On 4 9:22AM By Paula Lewis ; [facility], [facility] Clopidogrel Bisulfate 75 MG Oral Tablet 03/02/2024 P rovider: MAGO CORCORAN MD Diagnosis: Last Documented On 4 9:22AM By Paula Lewis ; [facility], [facility] Medications Administered Includes: Administered Medications from [...] Documented On 5 1:44PM ; [facility], [facility] Encounters Encounter Provider Location Date Check-In Time Check-Out Time Diagnosis [Patient Encounter] Ezequiel Houston MD [facility] 4 9:27AM 11:59PM Insurance Includes: Active Insurance Policies Plan Name Member ID Group # Subscriber Relationship Effect kar Dates 1 - Medicare Part B [facility] [id number] Antonia Pickens Self 2 - [facility] [id number] Antonia Pickens Self 11/08/2017 - Unknown Clinical Notes Includes: Clinical Notes from this encounter No Clinical Notes Recorded
--- OUTSIDE RECORDS SUMMARY | 2025-09-17 08:50 | XMS_ITS ---
Care Plan - [facility], [facility] Created on: September 17, 2025 Antonia Pickens : 1950 Sex: Female Author Organization [facility] Address [address] [place] [address] Phone Care Team Providers Care Slot Shift Supervisor Name Role Phone Rosemarie SINGH, Ezequiel Dubois Unavailable [phone] JEWELL SINGH, MAGO Unavailable [phone]
--- OUTSIDE RECORDS SUMMARY | 2025-09-17 08:50 | XMS_ITS | Clinical Summary ---
Author Organization [facility] Address [address] [place] [address] Care Team Providers Care Crossband Layer Name Role Phone Tariq Betancourt MD Primary Care Provider [phone] Stan Leroy MD Unavailable [phone] Allergies No known active allergies Medications [...] Department Care Team Description 08/30/2025 Orders Only [facility] at [address] [address] Stan Leroy MD from Last [...] Screening 1950 [facility]-Medicare Annual Wellness (AWV) 1950 [facility]-Infant/Child/Adol SDOH Screenings 1950 [facility]- SDOH Screenings 1966 [facility]-Adult SDOH Screenings 1966 [facility]-DTaP,Tdap,and Td Vaccines (1 - Tdap) 1967 [facility]-Zoster Vaccines (1 of 2) 1998 [facility]-RSV Vaccine: 60+ Years or (1 - 1-dose 75+ series) 2023 ZRX-[id number]-65 Vaccine (6 - season) 2025 08/25/2022, 06/18/2022, [...] ult from Last 3 Months Insurance MEDICARE [facility] Care Teams Crossband Layer Relationship Specialty Start Date End Date Tariq Betancourt MD [address] [place] [address] PCP - General 03/21/21 Stan Leroy MD [address] [place] [address] Medical Oncologist Hematology and Oncology 04/10/24 BAYLEE Henao [address] [place] [address] Referring Physician Orthopaedic Surgery 04/07/24
--- OUTSIDE RECORDS SUMMARY | 2025-09-17 08:50 | XMS_ITS | Continuity of Care Document ---
Author Organization [place] [facility] Address [address] [place] [address] Care Team Providers Care Audioprosthologist Name Role Phone MAXIMILIANO CORCORAN Primary Care [...] GFR (eGFR), serum or plasma 2024 025 [facility] (Registration ), [address] , [place], [address], 09/03/2025 04:15:04 Referral None recorded. Procedures None recorded. Surgeries None recorded. Imaging CT, chest + abdomen, w/ contrast - To be done in 3 mo (second week of November 2025) 2024 025 JOHNNY Mann (Centralized Scheduling), [address] [place], [address], 09/03/2025 04:15:04 Medication Orders None recorded. Patient TargetsNo targets recorded. Patient InstructionsNo instructions recorded. Reason for Referral None Reported. Results Created Date Observation Date Name Description Value Unit Range Abnormal Flag Note LastModifiedBy Organization Detail LastModifiedTime 07/30/2007/30/2025 PET-C T, skull base to mid-t high scan [facility] Name: NIHARIKA NARVAEZ FAY [address] Phys: Sandra dickinson MD,[facility] [place] [address] : 1949 Age: 74 Sex: F Acct: [id number] Loc: G.PET PHONE #: Exam Date: 2024 Status : DEP CLI FAX #: [phone] Rad# [id number] Unit# [id number] Admit Date: 2024 EXAMS: CPT CODE: [id number] PET W/CT SKULL- MID THIGH 88254 EXAMIN ATION: SKULL BASE TO MID THIGH [...] nodes. PAGE 1 Signed Report (JEFF NUROLDAN) [facility] Name: NIHARIKA NARVAEZ FAY [address] Phys: Sandra dickinson MD,[place] [address] : 1949 Age: 74 Sex: F Acct: [id number] Loc: G.PET PHONE #: [phone] Exam Date: 2024 Status : DEP CLI FAX #: Rad# [id number] Unit# [id number] Admit Date: 2024 EXAMS: CPT CODE: [id number] PET W/CT SKULL- MID THIGH 78671 ABDOME N AND PELVIS : Wide range [...] MD PAGE 2 Signed Report (JEFF NUED) [facility] Name: NIHARIKA NARVAEZ FAY [address] Phys: Sandra dickinson MD,Wag [facility] [address] : 1949 Age: 74 Sex: F Acct: [id number] Loc: Dhaval.PET PHONE #: Exam Date: 2024 Status : DEP CLI FAX #: Rad# [id number] Unit# [id number] Admit Date: 2024 EXAMS: CPT CODE: [id number] PET W/CT SKULL- MID THIGH 92820 CC: Peter Giordano M.D.; Lars dickinson MD Dictat ed Date/T nayeli: 2024 (1209) Techno logist : TIA CHOUDHURY, TIFFANY, CORN PICKER Transc ribed Date/T nayeli: 2024 (1209) Transc riptio nist: DR.IND Dumont onic Signat ure Date/T nayeli: 2024 (1209) Printe d Date/T nayeli: 2024 (1221) BATCH NO: N/A PAGE 3 Signed Report CC'ed Logic: Orderi ng Provid er: SANDRA SOUSA Attend ing Provid er: SANDRA SOUSA Referr ing Provid er: SANDRA SOUSA Consul ting Provid er: MILLY Queen [facility] [address] , [place], [address], 07/30/2025 13:12:15 07/30/20 25 07/30/2025 PET-C T, skull base to mid-t high scan [facility] Name: NIHARIKA NARVAEZ [address] [place] [address] Phys: Sandra dickinson MD,[facility] [place] [address] : 1949 Age: 74 Sex: F Acct: [id number] Loc: G.PET PHONE #: Exam Date: 2024 Status : DEP CLI FAX #: Rad# [id number] Unit# [id number] Admit Date: 2024 Report Has Been Amende d EXAMS: CPT CODE: [id number] PET W/CT SKULL- MID THIGH 70049 Addend um - 2024 SIGNED 2024 ADDEND UM: [id number] PET/WC TSKMT ADDEND UM #1 Greate [...] NECK: PAGE 1 Signed Report (JEFF NUED) [facility] Name: NIHARIKA NARVAEZ FAY [address] Phys: Sandra dickinson MD,[place] [address] : 1949 Age: 74 Sex: F Acct: [id number] Loc: G.PET PHONE #: Exam Date: 2024 Status : DEP CLI FAX #: Rad# [id number] Unit# [id number] Admit Date: 2024 Report Has Been Amende d EXAMS: CPT CODE: [id number] PET W/CT SKULL- MID THIGH 70005 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 [...] CHRIS: PAGE 2 Signed Report (JEFF NUED) [facility] Name: NIHARIKA NARVAEZ FAY [address] Phys: Sandra dickinson MD,Emanuelg M. ZOH[place] [address] : 1949 Age: 74 Sex: F Acct: [id number] Loc: Dhaval.PET PHONE #: Exam Date: 2024 Status : MELODY CLI FAX #: Rad# [id number] Unit# [id number] Admit Date: 2024 Report Has Been Amende d EXAMS: CPT CODE: [id number] PET W/CT SKULL- MID THIGH 68840 Intens e uptake to left upper lobe [...] r PAGE 3 Signed Report (JEFF NUED) [facility] Name: NIHARIKA NARVAEZ FAY [address] Phys: Sandra dick[place] [address] : 1949 Age: 74 Sex: F Acct: [id number] Loc: G.PET PHONE #: Exam Date: 2024 Status : DEP CLI FAX #: [phone] Rad# [id number] Unit# [id number] Admit Date: 2024 Report Has Been Amende d EXAMS: CPT CODE: [id number] PET W/CT SKULL- MID THIGH 90895 medici ne bone scan Septem 2024 FINDIN [...] 146. PAGE 4 Signed Report (JEFFAnne MUSTAFA) [facility] Name: NIHARIKA NARVAEZ FAY [address] Phys: Sandra dickinson MD,[facility] [place] [address] : 1949 Age: 74 Sex: F Acct: [id number] Loc: G.PET PHONE #: Exam Date: 2024 Status : DEP CLI FAX #: Rad# [id number] Unit# [id number] Admit Date: 2024 Report Has Been Amende d EXAMS: CPT CODE: [id number] PET W/CT SKULL- MID THIGH 53441 MUSCUL OSKELE FLOYD: Physio logic radiot racer [...] 2024 (1209) Techno logist : TIFFANY SHARP, CORN PICKER Transc ribed Date/T nayeli: 2024 (1209) Transc riptio nist: DR.IND DEL VALLE Electr onic Signat ure Date/T nayeli: 2024 (1209) Printe d Date/T nayeli: 2024 (1506) BATCH NO: N/A PAGE 5 Signed Report CC'ed Logic: Orderi ng Provid er: SANDRA SOUSA Attend ing Provid er: SANDRA SOUSA Referr ing Provid er: SANDRA SOUSA Consul ting Provid er: [facility]ILLY [facility] [address] , [place], [address], 07/31/2025 08:11:40 08/23/20 25 08/23/2025 XR, chest , 2 view [facility] Name: NIHARIKA NARVAEZ [facility] [address] Phys: Sandra dickinson MD,[place] [address] : 1949 Age: 75 Sex: F Acct: [id number] Loc: GCyrusRAD PHONE #: Exam Date: 2024 Status : REG CLI FAX #: Rad# [id number] Unit# [id number] Admit Date: 2024 EXAMS: CPT CODE: [id number] 698 CHEST 2 VIEWS 07814 CHEST RADIOG RAPHS, 2 VIEWS CLINIC AL [...] at 2214 Report ed and signed by: ANEGLIQUE STEWART, JASMINE Najera CC: Peter Giordano M.D.; [...] SOUSA Consul ting Provid er: MILLY Queen [address] , [place], [address], 08/24/2025 09:07:54 Result Notes None recorded. Problems Name Problem SNOMED Code Status Onset Date Resolution Date Notes Provider Name and Address Organization Details Recorded Time Small cell carcinoma of lung 164584379 Active 025 ZOHRA Mistry [facility] [place] 5 08:29:03 Tobacco user 990813599 Active 025 ZOHRA Mistry [facility] [place] 5 11:32:20 Problem Notes None recorded. Medical Equipment None Reported. Allergies Allergen ID Allergen Name Allergen Category Reaction Reaction Severity Criticality Documentation Date Start Date Code Code System Note Provider Name and Address Organization Details Recorded Time 372825 cefdinir medicatio n confusion mild [facility] 07/23/2025 17329 RxNorm Mia sifuentes [facility] [place] 5 09:11:23 967126 Boniva medicatio n other Not available [facility] 07/23/2025 46676 4 RxNorm Cause s extre me fluct uatio n in BP ZOHRA Mistry [facility] [place] 5 09:12:20 497015 Avelox medicatio n Not available Not available unabletoasse 07/23/2025 98652 6 RxNorm ZOHRA Mistry [facility] & [place] 5 09:12:59 Medications [...] 22 /min 184/77 mm[Hg] Mia العلي KRISTIN [facility] [place] 14:13:26 Social History Question Answer Notes LastModified by Organizat ion Details LastModified Time Tobacco Smoking Status Current Every Day Smoker Mia Dumont null, [facility] [place] 07/23/2025 11:30:06 What Was [...] Been Provided? Yes Smoking Cessation Brochures From [facility] Provided Information not available 07/23/2025 On [...] Codes Diagnosis Note [id number] Lars Mehta MD [place] [address] 08/06/2025 12:45:36 08/06/2025 14:33:26 Small cell carcinoma of lung 436412225 C34.12 1082089964 [id number] Lars Mehta MD [place] [address] 8 08/07/2025 12:49:55 08/07/2025 13:36:59 Small cell carcinoma of lung 829619063 C34.12 0591929002 [id number] Lars Mehta MD [place] [address] 8 08/08/2025 12:53:10 08/08/2025 16:24:49 Small cell carcinoma of lung 600742091 C34.12 8682080981 [id number] Lars Mehta MD [place] [address] 8 08/09/2025 12:46:59 08/09/2025 15:49:21 Small cell carcinoma of lung 595496825 C34.12 4751125493 [id number] Lars Mehta MD [place] [address] 8 08/13/2025 11:29:50 08/13/2025 12:13:47 Small cell carcinoma of lung 597681846 C34.12 8406203026 [id number] Lars Mehta MD [place] [address] 8 08/27/2025 14:12:24 08/27/2025 14:35:06 Small cell carcinoma of lung 655882899 C34.12 [id number] Health Concerns Section Related Observation LastModified by Organization Detai ls LastModified Time None Recorded Concern Status LastModified by Organization Details LastModified Time None Recorded Payers Encounter Date Sequence Insurance Name Policy Number Policy Baxter Covered Member ID Baxter Member ID Guarantor Name 08/27/2025 1 [place] Niharika Narvaez [id number] Niharika Narvaez 08/27/2025 2 KARLIE Narvaez [id number] Niharika Narvaez Notes Date Note Type Note [...] mild dry cough. Lars Mehta MD [address] [facility],[address], [place], [address], [facility] & [place] 08/27/2025 14:23:42 OBGyn Episode No OBEpisode recorded.
--- OUTSIDE RECORDS SUMMARY | 2025-09-17 08:50 | XMS_ITS | Continuity of Care Document ---
Author Organization [place] - [facility] Address [address] [place] [address] Care Team Providers Care Conveyor Belt Installer Name Role Phone MAXIMILIANO CORCORAN Primary Care Provider JARED PATTERSON Referring Provider LARS MEHTA Radiation Oncologist [phone] Assessment Encounter Date Assessment Date Assessment LastModified [...] T, skull base to mid-t high scan [facility] Name: NIHARIKA NARVAEZ [address] [facility] Phys: Sandra dickinson MD,Carrie [facility] [place] [address] : 1949 Age: 74 Sex: F Acct: [id number] Loc: G.PET PHONE #: [phone] Exam Date: 2024 Status : DEP CLI FAX #: [phone] Rad# [id number] Unit# [id number] Admit Date: 2024 EXAMS: CPT CODE: [id number] 457 PET W/CT SKULL- MID THIGH 93006 EXAMIN ATION: SKULL BASE TO MID THIGH [...] nodes. PAGE 1 Signed Report (JEFF NUROLDAN) [facility] Name: NIHARIKA NARVAEZ FAY [address] [employer] Phys: Sandra dickinson MD,[place] [address] : 1949 Age: 74 Sex: F Acct: [id number] Loc: G.PET PHONE #: [phone] Exam Date: 2024 Status : DEP CLI FAX #: Rad# [id number] Unit# [id number] Admit Date: 2024 EXAMS: CPT CODE: [id number] PET W/CT SKULL- MID THIGH 97037 ABDOME N AND PELVIS : Wide range [...] MD PAGE 2 Signed Report (JEFF MUSTAFA) [facility] Name: NIHARIKA NARVAEZ FAY [address] [employer] Phys: Sandra dickinson MD,Carrie [facility] [place] [address] : 1949 Age: 74 Sex: F Acct: [id number] Loc: G.PET PHONE #: Exam Date: 2024 Status : DEP CLI FAX #: Rad# [id number] Unit# [id number] Admit Date: 2024 EXAMS: CPT CODE: [id number] 457 PET W/CT SKULL- MID THIGH 67705 CC: Peter Giordano M.D.; Lars dickinson MD Dictat ed Date/T nayeli: 2024 (1209) Techno logist : TIA CHOUDHURY, TIFFANY, HEALTHCARE INTERPRETER Transc ribed Date/T nayeli: 2024 (1209) Transc riptio nist: DR.IND Dumont onic Signat ure Date/T nayeli: 2024 (1209) Printe d Date/T nayeli: 2024 (1221) BATCH NO: N/A PAGE 3 Signed Report CC'ed Logic: Orderi ng Provid er: SANDRA SOUSA Attend ing Provid er: SANDRA SOUSA Referr ing Provid er: SANDRA SOUSA Consul ting Provid er: MILLY pagan [address] [place], [address], 07/30/2025 13:12:15 07/30/20 25 07/30/2025 PET-C T, skull base to mid-t high scan [facility] Name: NIHARIKA NARVAEZ FAY [facility] [employer] Phys: Sandra dickinson MD,Carrie [place] [address] : 1949 Age: 74 Sex: F Acct: [id number] Loc: G.PET PHONE #: Exam Date: 2024 Status : DEP CLI FAX #: Rad# [id number] Unit# [id number] Admit Date: 2024 Report Has Been Amende d EXAMS: CPT CODE: [id number] 457 PET W/CT SKULL- MID THIGH 75766 Addend um - 2024 SIGNED 2024 ADDEND UM: [id number] 457 PET/WC TSKMT ADDEND UM #1 Greate [...] NECK: PAGE 1 Signed Report (JEFF NUROLDAN) [facility] Name: NIHARIKA NARVAEZ FAY [address] [employer] Phys: Sandra dickinson MD,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 Non-di agnost ic CT findin gs: [...] CHRIS: PAGE 2 Signed Report (JEFF NUED) [facility] Name: NIHARIKA NARVAEZ FAY [address] [facility] [employer] Phys: Sandra dickinson MD,Wag [facility] [place] [address] : 1949 Age: 74 Sex: F Acct: [id number] Loc: G.PET PHONE #: [phone] Exam Date: 2024 Status : DEP CLI FAX #: [phone] Rad# [id number] Unit# [id number] Admit Date: 2024 Report Has Been Amende d EXAMS: CPT CODE: [id number] 457 PET W/CT SKULL- MID THIGH 08486 Intens e uptake to left upper lobe [...] r PAGE 3 Signed Report (JEFF NUED) [facility] Name: NIHARIKA NARVAEZ FAY [address] [employer] Phys: Sandra [place] [address] : 1949 Age: 74 Sex: F Acct: [id number] Loc: G.PET PHONE #: Exam Date: 2024 Status : DEP CLI FAX #: Rad# [id number] Unit# [id number] Admit Date: 2024 Report Has Been Amende d EXAMS: CPT CODE: [id number] 457 PET W/CT SKULL- MID THIGH 33999 medici ne bone scan Septem 2024 FINDIN [...] 146. PAGE 4 Signed Report (JEFF NUED) [facility] Name: NIHARIKA NARVAEZ FAY [address] [employer] Phys: Sandra dickinson [place] [address] : 1949 Age: 74 Sex: F Acct: [id number] Loc: G.PET PHONE #: [phone] Exam Date: 2024 Status : DEP CLI FAX #: Rad# [id number] Unit# [id number] Admit Date: 2024 Report Has Been Amende d EXAMS: CPT CODE: [id number] 457 PET W/CT SKULL- MID THIGH 32437 MUSCUL OSKELE FLOYD: Physio logic radiot racer [...] (1209) Techno logist : TIA CHOUDHURY, TIFFANY, HEALTHCARE INTERPRETER Transc ribed Date/T nayeli: 2024 (1209) Transc riptio nist: DR.IND Dumont onic Signat ure Date/T nayeli: 2024 (1209) Printe d Date/T nayeli: 2024 (1506) BATCH NO: N/A PAGE 5 Signed Report CC'ed Logic: Orderi ng Provid er: SANDRA SOUSA Attend ing Provid er: SANDRA SOUSA Referr ing Provid er: SANDRA SOUSA Consul ting Provid er: MILLY Queen [address] , [place], [address], 07/31/2025 08:11:40 08/23/20 25 08/23/2025 XR, chest , 2 view [facility] Name: NIHARIKA NARVAEZ [address] Phys: Sandra dickinson MD,Carrie [facility] [place] [address] : 1949 Age: 75 Sex: F Acct: [id number] Loc: XiomaraRAD PHONE #: [phone] Exam Date: 2024 Status : REG CLI FAX #: [phone] Rad# [id number] Unit# [id number] Admit Date: 2024 EXAMS: CPT CODE: [id number] 698 CHEST 2 VIEWS 45001 CHEST RADIOG RAPHS, 2 VIEWS CLINIC AL [...] SOUSA Consul ting Provid er: MILLY Queen [address] , [place], [address], 08/24/2025 09:07:54 Result Notes None recorded. Problems Name Problem SNOMED Code Status Onset Date Resolution Date Notes Provider Name and Address Organization Details Recorded Time Small cell carcinoma of lung 306187039 Active 025 ZOHRA Mistry - [place] [facility] [place] 5 08:29:03 Tobacco user 239470614 Active 025 ZOHRA Mistry - [place] [facility] [place] 5 11:32:20 Problem Notes None recorded. Medical Equipment None Reported. Allergies Allergen ID Allergen Name Allergen Category Reaction Reaction Severity Criticality Documentation Date Start Date Code Code System Note Provider Name and Address Organization Details Recorded Time 321800 cefdinir medicatio n confusion mild high 07/23/2025 39923 RxNorm Mia sifuentes, ZOHRA [facility] & [place] 5 09:11:23 000296 Boniva medicatio n other Not available [facility] 07/23/2025 98237 4 RxNorm Cause s extre me fluct uatio n in BP Mia sifuentes, ZOHRA [facility] & [place] 5 09:12:20 908759 Avelox medicatio n Not available Not available unabletoasse 07/23/2025 30246 6 RxNorm Mia sifuentes, ZOHRA [facility] & [place] 5 09:12:59 [...] Status Current Every Day Smoker Mia Dumont [facility], [facility] - [place] [facility] [place] 07/23/2025 11:30:06 What Was [...] Been Provided? Yes Smoking Cessation Brochures From [facility] & [facility] Dept Provided Information not available [...] ICD10 Code Diagnosis IMO Codes Diagnosis Note [id number] Lars Mehta MD [address] [address] 07/23/2025 10:12:44 07/23/2025 11:53:43 Small cell carcinoma of lung 948270070 C34.12 4440498516 Tobacco user 626504958 Z 72.0 [id number] Lars Mehta MD [address] [address] 07/26/2025 09:56:22 07/26/2025 11:19:24 Small cell carcinoma of lung 811508182 C34.12 6346823347 Health Concerns Section Related Observation LastModified by Organization Detai ls LastModified Time None Recorded Concern Status LastModified by Organization Details LastModified Time None Recorded Payers Encounter Date Sequence Insurance Name Policy Number Policy Baxter Covered Member ID Baxter Member ID Guarantor Name 07/26/2025 1 [place] Niharika Narvaez [id number] 5 Niharika Narvaez 07/26/2025 2 [employer] Farias Sidles [id number] Niharika Narvaez OBGyn Episode No OBEpisode recorded.
--- OUTSIDE RECORDS SUMMARY | 2025-09-17 08:51 | XMS_ITS | Continuity of Care Document ---
Author Organization [place] - [facility] Address [address] [place] [address] Care Team Providers Care Leather Seasoner Name Role Phone MAXIMILIANO CORCORAN Primary Care [...] T, skull base to mid-t high scan [facility] Name: NIHARIKA NARVAEZ LARA [address] [employer] [facility] Phys: Sandra dickinson MD,Emanuelg [facility] [place] [address] : 1949 Age: 74 Sex: F Acct: [id number] Loc: G.PET PHONE #: Exam Date: 2024 Status : DEP CLI FAX #: Rad# [id number] Unit# [id number] Admit Date: 2024 EXAMS: CPT CODE: [id number] 457 PET W/CT SKULL- MID THIGH 62795 EXAMIN ATION: SKULL BASE TO MID THIGH [...] AND NECK: 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 Non-di agnost ic CT findin [...] nodes. PAGE 1 Signed Report (JEFF NUED) [facility] Name: NIHARIKA NARVAEZ FAY [address] [employer] Phys: Sandra dickinson [place] [address] : 1949 Age: 74 Sex: F Acct: [id number] Loc: Dhaval.PET PHONE #: [phone] Exam Date: 2024 Status : DEP CLI FAX #: Rad# [id number] Unit# [id number] Admit Date: 2024 EXAMS: CPT CODE: [id number] 457 PET W/CT SKULL- MID THIGH 12307 ABDOME N AND PELVIS : Wide range [...] MD PAGE 2 Signed Report (JEFF NUED) [facility] al Medica l Ce Name: NIHARIKA NARVAEZ FAY [employer] Phys: Sandra dickinson MD,Carrie [facility] [place] [address] : 1949 Age: 74 Sex: F Acct: [id number] Loc: G.PET PHONE #: Exam Date: 2024 Status : DEP CLI FAX #: [phone] Rad# [id number] Unit# [id number] Admit Date: 2024 EXAMS: CPT CODE: [id number] 457 PET W/CT SKULL- MID THIGH 27898 CC: Peter Giordano M.D.; Lars dickinson MD Dictat ed Date/T nayeli: 2024 (1209) Techno logist : TIFFANY SHARP, SHEET METAL [employer]OP SUPERVISOR Transc ribed Date/T nayeli: 2024 (1209) Transc riptio nist: DR.IND DEL VALLE Electr onic Signat ure Date/T nayeli: 2024 (1209) Printe d Date/T nayeli: 2024 (1221) BATCH NO: N/A PAGE 3 Signed Report CC'ed Logic: Orderi ng Provid er: SANDRA SOUSA Attend ing Provid er: SANDRA SOUSA Referr ing Provid er: SANDRA SOUSA Consul ting Provid er: MILLY Queen [address] , [place], [address], 07/30/2025 13:12:15 07/30/20 25 07/30/2025 PET-C T, skull base to mid-t high scan [facility] Name: NIHARIKA NARVAEZ FAY [address] Medica [address] [employer] Phys: Sandra dickinson MD,[place] [address] : 1949 Age: 74 Sex: F Acct: [id number] Loc: G.PET PHONE #: Exam Date: 2024 Status : DEP CLI FAX #: Rad# [id number] Unit# [id number] Admit Date: 2024 Report Has Been Amende d EXAMS: CPT CODE: [id number] 457 PET W/CT SKULL- MID THIGH 16243 Addend um - 2024 SIGNED 2024 ADDEND UM: [id number] 457 PET/WC TSKMT ADDEND UM #1 Greate [...] NECK: PAGE 1 Signed Report (JEFF NUED) [facility] Name: NIHARIKA NARVAEZ FAY [address] [employer] Phys: Sandra dickinson 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 [...] CHRIS: PAGE 2 Signed Report (JEFF NUROLDAN) [facility] Name: NIHARIKA NARVAEZ FAY [employer] Phys: Sandra dickinson MD,[facility] [place] [address] : 1949 Age: 74 Sex: F Acct: [id number] Loc: G.PET PHONE #: [phone] Exam Date: 2024 Status : DEP CLI FAX #: [phone] Rad# [id number] Unit# [id number] Admit Date: 2024 Report Has Been Amende d EXAMS: CPT CODE: [id number] 457 PET W/CT SKULL- MID THIGH 51252 Intens e uptake to left upper lobe [...] r PAGE 3 Signed Report (JEFF NUED) [facility] Name: NIHARIKA NARVAEZ FAY [address] [employer] [facility] Phys: Sandra dickinson MD,[facility] [address] : 1949 Age: 74 Sex: F Acct: [id number] Loc: G.PET PHONE #: Exam Date: 2024 Status : DEP CLI FAX #: Rad# [id number] Unit# [id number] Admit Date: 2024 Report Has Been Amende d EXAMS: CPT CODE: [id number] 457 PET W/CT SKULL- MID THIGH 46408 medici ne bone scan Septem 2024 FINDIN [...] 146. PAGE 4 Signed Report (JEFF NUED) [facility] Name: NIHARIKA NARVAEZ FAY [employer]ica l [employer] Phys: Sandra dickinson MD,[place] [address] : 1949 Age: 74 Sex: F Acct: [id number] Loc: G.PET PHONE #: Exam Date: 2024 Status : DEP CLI FAX #: Rad# [id number] Unit# [id number] Admit Date: 2024 Report Has Been Amende d EXAMS: CPT CODE: [id number] 457 PET W/CT SKULL- MID THIGH 19184 MUSCUL OSKELE FLOYD: Physio logic radiot racer [...] (1209) Techno logist : TIA CHOUDHURY, BS, SHEET [employer] SUPERVISOR Transc ribed Date/T nayeli: 2024 (1209) Transc riptio nist: DR.IND DEL VALLE Electr onic Signat ure Date/T nayeli: 2024 (120) Printe d Date/T nayeli: 2024 (5726) BATCH NO: N/A PAGE 5 Signed Report CC'ed Logic: Orderi ng Provid er: SANDRA SOUSA Attend ing Provid er: SANDRA SOUSA Referr ing Provid er: SANDRA SOUSA Consul ting Provid er: MILLY Queen [address], [place], [address], 07/31/2025 08:11:40 08/23/2008/23/2025 XR, chest , 2 view [facility] [facility] Ce Name: NIHARIKA NARVAEZ FAY [facility] [address] [address] Phys: Sandra dickinson MD,Carrie [facility] [place] [address] : 1949 Age: 75 Sex: F Acct: [id number] Loc: G.RAD PHONE #: [phone] Exam Date: 2024 Status : REG CLI FAX #: Rad# [id number] Unit# [id number] Admit Date: 2024 EXAMS: CPT CODE: [id number] 698 CHEST 2 VIEWS 49180 CHEST RADIOG RAPHS, 2 VIEWS CLINIC AL [...] 2024 (2213) Transc riptio nist: DR.WIL TIFFANY Jospeh onic Signat ure Date/T nayeli: 2024 (2213) Printe d Date/T nayeli: 2024 (2331) BATCH NO: N/A PAGE 1 Signed Report CC'ed Logic: Orderi ng Provid er: SANDRA SOUSA Attend ing Provid er: SANDRA SOUSA Referr ing Provid er: SANDRA SOUSA Consul ting Provid er: MILLY [facility] [address], [place], [address], 08/24/2025 09:07:54 Result Notes None recorded. Problems Name Problem SNOMED Code Status Onset Date Resolution Date Notes Provider Name and Address Organization Details Recorded Time Small cell carcinoma of lung 442726104 Active 025 ZOHRA Mistry [facility] & [place] 5 08:29:03 Tobacco user 176341365 Active 025 ZOHRA Mistry [facility] & [place] 5 11:32:20 Problem Notes None recorded. Medical Equipment None Reported. Allergies Allergen ID Allergen Name Allergen Category Reaction Reaction Severity Criticality Documentation Date Start Date Code Code System Note Provider Name and Address Organization Details Recorded Time 985987 cefdinir medicatio n confusion mild high 07/23/2025 25759 RxNorm ZOHRA Mistry [facility] & [place] 5 09:11:23 886557 Boniva medicatio n other Not available high 07/23/2025 95661 4 RxNorm Cause s extre me fluct uatio n in BP Mia sifuentes, ZOHRA FOSTER [facility] & [place] 5 09:12:20 805048 Avelox medicatio n Not available Not available unabletoasse 07/23/2025 25206 6 RxNorm Mia sifuentes, ZOHRA - [facility]NT [facility] & [place] 5 09:12:59 Medications Name Sig Start [...] /min 22 /min 171/70 mm[Hg] Mia العلي [facility] & [place] 11:32:37 Social History Question Answer Notes LastModified by Organizat ion Details LastModified Time Tobacco Smoking Status Current Every Day Smoker Mia Dumont [facility] & [place] 07/23/2025 11:30:06 What Was The Date [...] Been Provided? Yes Smoking Cessation Brochures From [facility] & [facility] Dept Provided Information not available 07/23/2025 [...] ICD10 Code Diagnosis IMO Codes Diagnosis Note [id number] MD HANNA Lozano[address] [address] 07/23/2025 10:12:44 07/23/2025 11:53:43 Small cell carcinoma of lung 779768864 C34.12 0496564639 Tobacco user 533614843 Z 72.0 [id number] MD HANNA Lozano [address] [address] 07/26/2025 09:56:22 07/26/2025 11:19:24 Small cell carcinoma of lung 939999253 C34.12 5402425514 [id number] MD [facility] [address] [address] 08/06/2025 12:45:36 08/06/2025 14:33:26 Small cell carcinoma of lung 776895468 C34.12 2637467517 [id number] MD [facility] [address] [place] [address] 08/07/2025 12:49:55 08/07/2025 13:36:59 Small cell carcinoma of lung 594452132 C34.12 6720300576 [id number] MD HANNA [facility]oz[facility] [address] [place] [address] 08/08/2025 12:53:10 08/08/2025 16:24:49 Small cell carcinoma of lung 116922471 C34.12 5281126452 Health Concerns Section Related Observation LastModified by Organization Detai ls LastModified Time None Recorded Concern Status LastModified by Organization Details LastModified Time None Recorded Payers Encounter Date Sequence Insurance Name Policy Number Policy Baxter Covered Member ID Baxter Member ID Guarantor Name 08/08/2025 1 [place] Niharika Farias Celio [id number] 5 Niharika Lara Narvaez 08/08/2025 2 [facility] Niharika Farias Celio [id number] Niharika Narvaez Notes Date Note Type Note [...] Plavix and aspirin. Lars Mehta MD [address] [facility],[address], [place], [address], [facility] - [facility] & [place] 08/13/2025 11:40:35 OBGyn Episode No OBEpisode recorded.
--- OUTSIDE RECORDS SUMMARY | 2025-09-17 08:51 | XMS_ITS | Continuity of Care Document ---
Author Organization [place] - [facility] [facility] & [place] [facility] Address [address] [place] [address] Care Team Providers Care Black Powder Glazing Operator Name Role Phone JEWELLMAXIMILIANO Primary Care Provider [phone] JARED PATTERSON Referring Provider LARS MEHTA Radiation Oncologist Assessment Encounter Date Assessment Date Assessment LastModified by Organization Details LastModified Time 08/06/2025 08/06/2025 Radiation Therapy Current Dose:1000 Dose [id number]: CHEMOTHERAPYn o: Type: REVIEWED: Port Film: Y [...] T, skull base to mid-t high scan [facility] Name: NIHARIKA NARVAEZ FAY [address] [employer] Phys: Sandra dickinson [place] [address] : 1949 Age: 74 Sex: F Acct: [id number] Loc: G.PET PHONE #: Exam Date: 2024 Status : DEP CLI FAX #: Rad# [id number] Unit# [id number] Admit Date: 2024 EXAMS: CPT CODE: [id number] PET W/CT SKULL- MID THIGH 12093 EXAMIN ATION: SKULL BASE TO MID THIGH [...] nodes. PAGE 1 Signed Report (JEFF NUED) [facility] Name: NIHARIKA NARVAEZ FAY [address] [employer] Phys: Sandra dickinson MD,[facility] [place] [place] [address] : 1949 Age: 74 Sex: F Acct: [id number] Loc: G.PET PHONE #: Exam Date: 2024 Status : DEP CLI FAX #: Rad# [id number] Unit# [id number] Admit Date: 2024 EXAMS: CPT CODE: [id number] PET W/CT SKULL- MID THIGH 33278 ABDOME N AND PELVIS : Wide range [...] MD PAGE 2 Signed Report (JEFF NUED) [facility] Name: NIHARIKA NARVAEZ FAY [facility] [employer] Phys: Sandra dickinson MD,Carrie [facility] [place] [address] : 1949 Age: 74 Sex: F Acct: [id number] Loc: G.PET PHONE #: Exam Date: 2024 Status : DEP CLI FAX #: Rad# [id number] Unit# [id number] Admit Date: 2024 EXAMS: CPT CODE: [id number] PET W/CT SKULL- MID THIGH 15022 CC: Peter Giordano M.D.; Lars dickinson MD Dictat ed Date/T nayeli: 2024 (1209) Techno logist : TIA CHOUDHURY, TIFFANY, TEST DEPARTMENT HELPER Transc ribed Date/T nayeli: 2024 (1209) Transc riptio nist: DR.IND Dumont onic Signat ure Date/T nayeli: 2024 (1209) Printe d Date/T nayeli: 2024 (1221) BATCH NO: N/A PAGE 3 Signed Report CC'ed Logic: Orderi ng Provid er: SANDRA SOUSA Attend ing Provid er: SANDRA SOUSA Referr ing Provid er: SANDRA SOUSA Consul ting Provid er: MILLY [facility] [address] , [place], [address], 07/30/2025 13:12:15 07/30/20 25 07/30/2025 PET-C T, skull base to mid-t high scan [facility]: [facility] Phys: Sandra dickinson MD,[place] [address] : 1949 Age: 74 Sex: F Acct: [id number] Loc: G.PET PHONE #: Exam Date: 2024 Status : DEP CLI FAX #: [phone] Rad# [id number] Unit# [id number] Admit Date: 2024 Report Has Been Amende d EXAMS: CPT CODE: [id number] PET W/CT SKULL- MID THIGH 82664 Addend - 2024 SIGNED 2024 ADDEND UM: [id number] 457 PET/WC TSKMT ADDEND #1 Greate r [...] NECK: PAGE 1 Signed Report (JEFF NUED) [facility] Name: NIHARIKA NARVAEZ FAY [address] [employer] Phys: Sandra dickinson MD,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 Non-di agnost ic CT findin gs: [...] CHRIS: PAGE 2 Signed Report (JEFF NUED) [facility] Name: NIHARIKA NARVAEZ FAY [address] [employer] [employer] Phys: Sandra dick[place] [address] : 1949 Age: 74 Sex: F Acct: [id number] Loc: G.PET PHONE #: Exam Date: 2024 Status : DEP CLI FAX #: Rad# [id number] Unit# [id number] Admit Date: 2024 Report Has Been Amende d EXAMS: CPT CODE: [id number] 457 PET W/CT SKULL- MID THIGH 06657 Intens e uptake to left upper lobe [...] r PAGE 3 Signed Report (JEFF NUED) [facility] Name: NIHARIKA NARVAEZ FAY [address] [employer] [employer] Phys: Sandra dickinson [place] [address] : 1949 Age: 74 Sex: F Acct: [id number] Loc: G.PET PHONE #: [phone] Exam Date: 2024 Status : DEP CLI FAX #: [phone] Rad# [id number] Unit# [id number] Admit Date: 2024 Report Has Been Amende d EXAMS: CPT CODE: [id number] 457 PET W/CT SKULL- MID THIGH 08395 medici ne bone scan Septem 2024 FINDIN [...] 146. PAGE 4 Signed Report (JEFF NUED) [facility] Name: NIHARIKA NARVAEZ FAY [address] [employer] [employer] Phys: Sandra dickinson [place] [address] : 1949 Age: 74 Sex: F Acct: [id number] Loc: G.PET PHONE #: [phone] Exam Date: 2024 Status : DEP CLI FAX #: Rad# [id number] Unit# [id number] Admit Date: 2024 Report Has Been Amende d EXAMS: CPT CODE: [id number] 457 PET W/CT SKULL- MID THIGH 78973 MUSCUL OSKELE FLOYD: Physio logic radiot racer [...] (1209) Techno logist : TIA CHOUDHURY, TIFFANY, TEST DEPARTMENT HELPER Transc ribed Date/T nayeli: 2024 (1209) Transc riptio nist: DR.IND Dumont onic Signat ure Date/T nayeli: 2024 (1209) Printe d Date/T nayeli: 2024 (1506) BATCH NO: N/A PAGE 5 Signed Report CC'ed Logic: Orderi ng Provid er: SANDRA SOUSA Attend ing Provid er: SANDRA SOUSA Referr ing Provid er: SANDRA SOUSA Consul ting Provid er: MILLY [facility] [address] , [place], [address], 07/31/2025 08:11:40 08/23/20 25 08/23/2025 XR, chest , 2 view [facility] Name: NIHARIKA NARVAEZ FAY [address] [place] [address] Phys: Sandra dickinson MD,Carrie [facility] [place] [address] : 1949 Age: 75 Sex: F Acct: [id number] Loc: G.RAD PHONE #: [phone] Exam Date: 2024 Status : REG CLI FAX #: Rad# [id number] Unit# [id number] Admit Date: 2024 EXAMS: CPT CODE: [id number] 698 CHEST 2 VIEWS 73202 CHEST RADIOG RAPHS, 2 VIEWS CLINIC AL [...] Date/T nayeli: 2024 (221) Printe d Date/T naeyli: 2024 (2331) BATCH NO: N/A PAGE 1 Signed Report CC'ed Logic: Orderi ng Provid er: SANDRA SOUSA Attend ing Provid er: SANDRA SOUSA Referr ing Provid er: SANDRA SOUSA Consul ting Provid er: MILLY Queen [address] , [place], [address], 08/24/2025 09:07:54 Result Notes None recorded. Problems Name Problem SNOMED Code Status Onset Date Resolution Date Notes Provider Name and Address Organization Details Recorded Time Small cell carcinoma of lung 568151026 Active 025 ZOHRA Mistry - [place] - [place] & [place] 5 08:29:03 Tobacco user 066495516 Active 025 ZOHRA Mistry [facility] & [place] 5 11:32:20 Problem Notes None recorded. Medical Equipment None Reported. Allergies Allergen ID Allergen Name Allergen Category Reaction Reaction Severity Criticality Documentation Date Start Date Code Code System Note Provider Name and Address Organization Details Recorded Time 473606 cefdinir medicatio n confusion mild [facility] 07/23/2025 03329 RxNorm ZOHRA Mistry [facility] & [place] 5 09:11:23 679776 Boniva medicatio n other Not available [facility] 07/23/2025 01373 4 RxNorm Cause s extre me fluct uatio n in BP Mia sifuentes [facility] & [place] 5 09:12:20 138078 Avelox medicatio n Not available Not available unabletoasse 07/23/2025 25175 6 RxNorm ZOHRA Mistry [facility] & [place] 5 09:12:59 Medications Name Sig [...] /min 22 /min 173/72 mm[Hg] Mia FOSTER [facility] & [place] 12:53:37 Social History Question Answer Notes LastModified by Organizat ion Details LastModified Time Tobacco Smoking Status Current Every Day Smoker ZOHRA Mistry [facility] & [place] 07/23/2025 11:30:06 What Was The [...] Been Provided? Yes Smoking Cessation Brochures From [facility] [place] [facility] Dept Provided Information not available 07/23/2025 [...] ICD10 Code Diagnosis IMO Codes Diagnosis Note [id number] MD [facility] [address] [place] [address] 07/23/2025 10:12:44 07/23/2025 11:53:43 Small cell carcinoma of lung 146310693 C34.12 8953722842 Tobacco user 725203806 Z 72.0 2533359 [id number] Lars Mehta MD [address] [address] 07/26/2025 09:56:22 07/26/2025 11:19:24 Small cell carcinoma of lung 654566575 C34.12 6864057045 [id number] Lars Mehta MD [place] [address] [place] [address] 08/06/2025 12:45:36 08/06/2025 14:33:26 Small cell carcinoma of lung 630384811 C34.12 4380589517 Health Concerns Section Related Observation LastModified by Organization Detai ls LastModified Time None Recorded Concern Status LastModified by Organization Details LastModified Time None Recorded Payers Encounter Date Sequence Insurance Name Policy Number Policy Baxter Covered Member ID Baxter Member ID Guarantor Name 08/06/2025 1 [place] Niharika Narvaez [id number] 5 Niharika Narvaez 08/06/2025 2 [employer] Niharika Narvaez [id number] Niharika Narvaez OBGyn Episode No OBEpisode recorded.
--- OUTSIDE RECORDS SUMMARY | 2025-09-17 08:51 | XMS_ITS | Data Portability ---
Author Organization [place] - [facility] Address [address] [place] [address] Care Team Providers Care Surveillance Specialist Name Role Phone TARIQ CORCORAN Primary Care [...] GFR (eGFR), serum or plasma 2024 025 [facility] (Registration ), [address] [place] [address] [place], [address], 09/03/2025 04:15:04 Referral None recorded. Procedures None recorded. Surgeries None recorded. Imaging CT, chest + abdomen, w/ contrast - To be done in 3 mo (second week of November 2025) 2024 025 JOHNNY Mann (Centralized Scheduling), [address] [place] [address] [place], [address], 09/03/2025 04:15:04 XR, chest, 2 view - Follow up after completin g radiation to lung 2024 [facility] [address] [place] [address] Mariangel Doan, [place], [address], 08/23/2025 23:33:01 Medication Orders prednison e 20 mg tablet 2024 025 [facility] 591, [address], [address], 09/03/2025 05:02:08 Patient TargetsNo targets recorded. Patient InstructionsNo instructions recorded. Reason for Referral None Reported. Results Created Date Observation Date Name Description Value Unit Range Abnormal Flag Note LastModifiedBy Organization Detail LastModifiedTime 07/30/2007/30/2025 PET-C T, skull base to mid-t high scan [facility]: [facility]oca[facility] Phys: Sandra dickinson MD,[facility] MZOHRA Bonds [address] : 1949 Age: 74 Sex: F Acct: [id number] Loc: Dhaval.PET PHONE #: Exam Date: 2024 Status : DEP CLI FAX #: [phone] Rad# [id number] Unit# [id number] Admit Date: 2024 EXAMS: CPT CODE: [id number] 457 PET W/CT SKULL- MID THIGH 11062 EXAMIN ATION: SKULL BASE TO MID THIGH [...] nodes. PAGE 1 Signed Report (JEFF NUED) [facility] Name: NIHARIKA NARVAEZ FAY [address] [employer] Phys: Sandra dickinson [place] [address] : 1949 Age: 74 Sex: F Acct: [id number] Loc: G.PET PHONE #: [phone] Exam Date: 2024 Status : DEP CLI FAX #: Rad# [id number] Unit# [id number] Admit Date: 2024 EXAMS: CPT CODE: [id number] 457 PET W/CT SKULL- MID THIGH 76456 ABDOME N AND PELVIS : Wide range [...] MD PAGE 2 Signed Report (JEFF NUROLDAN) [facility] Name: NIHARIKA NARVAEZ FAY [employer] Phys: Sandra dickinson MD,Carrie [facility] [place] [address] : 1949 Age: 74 Sex: F Acct: [id number] Loc: G.PET PHONE #: [phone] Exam Date: 2024 Status : DEP CLI FAX #: Rad# [id number] Unit# [id number] Admit Date: 2024 EXAMS: CPT CODE: [id number] 457 PET W/CT SKULL- MID THIGH 25896 CC: Peter Giordano M.D.; Lars dickinson MD Dictat ed Date/T nayeli: 2024 (1209) Techno logist : TIFFANY SHARP, PORTABLE GRINDING MACHINE OPERATOR Transc ribed Date/T nayeli: 2024 (1209) Transc riptio nist: DR.IND Dumont onic Signat ure Date/T nayeli: 2024 (1209) Printe d Date/T nayeli: 2024 (1221) BATCH NO: N/A PAGE 3 Signed Report CC'ed Logic: Orderi milagros Provid er: SANDRA SOUSA Attend ing Provid er: SANDRA SOUSA Referr ing Provid er: SANDRA SOUSA Consul ting Provid er: MILLY [facility] [address] , [place], [address], 07/30/2025 13:12:15 07/30/20 25 07/30/2025 PET-C T, skull base to mid-t high scan [facility] Name: NIHARIKA NARVAEZ FAY [facility] [employer] [address] Phys: Sandra [place] [address] : 1949 Age: 74 Sex: F Acct: [id number] Loc: Dhaval.PET PHONE #: Exam Date: 2024 Status : DEP CLI FAX #: Rad# [id number] Unit# [id number] Admit Date: 2024 Report Has Been Amende d EXAMS: CPT CODE: [id number] 457 PET W/CT SKULL- MID THIGH 14683 Addend - 2024 SIGNED 2024 ADDEND UM: [id number] 457 PET/WC TSKMT ADDEND UM #1 Greate [...] ation correc tion and anatom ic locali [facility] [place] . 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 [...] CHRIS: PAGE 2 Signed Report (JEFF NUROLDAN) [facility] Name: NIHARIKA NARVAEZ FAY 98 [employer] system Phys: Sandra dickinson [place] [address] : 1949 Age: 74 Sex: F Acct: [id number] Loc: G.PET PHONE #: [phone] Exam Date: 2024 Status : DEP CLI FAX #: Rad# [id number] Unit# [id number] Admit Date: 2024 Report Has Been Amende d EXAMS: CPT CODE: [id number] 457 PET W/CT SKULL- MID THIGH 26427 Intens e uptake to left upper lobe [...] r PAGE 3 Signed Report (JEFF NUED) [facility] Name: NIHARIKA NARVAEZ FA 98 [employer] system Phys: Sandra [place] [address] : 1949 Age: 74 Sex: F Acct: [id number] Loc: G.PET PHONE #: Exam Date: 2024 Status : DEP CLI FAX #: Rad# [id number] Unit# [id number] Admit Date: 2024 Report Has Been Amende d EXAMS: CPT CODE: [id number] 457 PET W/CT SKULL- MID THIGH 22601 medici ne bone scan Septem 2024 FINDIN [...] 146. PAGE 4 Signed Report (JEFF NUED) [facility] Name: NIHARIKA NARVAEZ FAY 98 [employer] Phys: Sandra dickinson [place] [address] : 1949 Age: 74 Sex: F Acct: [id number] Loc: G.PET PHONE #: Exam Date: 2024 Status : DEP CLI FAX #: [phone] Rad# [id number] Unit# [id number] Admit Date: 2024 Report Has Been Amende d EXAMS: CPT CODE: [id number] 457 PET W/CT SKULL- MID THIGH 71534 MUSCUL OSKELE FLOYD: Physio logic radiot racer [...] (1209) Techno logist : TIA CHOUDHURY, BS, PORTABLE GRINDING MACHINE OPERATOR Transc ribed Date/T nayeli: 2024 (1209) Transc riptio nist: DR.IND Dumont onic Signat ure Date/T nayeli: 2024 (1209) Printe d Date/T nayeli: 2024 (1506) BATCH NO: N/A PAGE 5 Signed Report CC'ed Logic: Orderi ng Provid er: SANDRA SOUSA Attend ing Provid er: SANDRA SOUSA Referr ing Provid er: SANDRA SOUSA Consul ting Provid er: MILLY Queen [address] , [place], [address], 07/31/2025 08:11:40 08/23/20 25 08/23/2025 XR, chest , 2 view [facility] Name: NIHARIKA NARVAEZ FAY [address] [place] [address] Phys: Sandra dickinson MD,[place] [address] : 1949 Age: 75 Sex: F Acct: [id number] Loc: G.RAD PHONE #: Exam Date: 2024 Status : REG CLI FAX #: Rad# [id number] Unit# [id number] Admit Date: 2024 EXAMS: CPT CODE: [id number] 698 CHEST 2 VIEWS 92881 CHEST RADIOG RAPHS, 2 VIEWS CLINIC AL [...] SOUSA Consul ting Provid er: MILLY pagan [address] [place], [address], 08/24/2025 09:07:54 Result Notes Documentation Provider Name and Address Organization Details Recorded Time Xr, Chest, 2 View : [facility] Ce Name: NIHARIKA NARVAEZ LARA [address] [place] [address] Phys: Tyson SINGH,[place] [address] : 1950 Age: 75 Sex: F Acct: [id number] Loc: CIRILO PHONE #: Exam Date: 08/23/2025 Status: REG CLI FAX #: Rad# [id number] Unit# [id number] Admit Date: 08/23/2025 EXAMS: CPT CODE: [id number] CHEST 2 VIEWS 33964 CHEST RADIOGRAPHS, 2 VIEWS CLINICAL HISTORY: Follow-up [...] Technologist: SARAH Gonzales(R) Transcribed Date/Time: 08/23/2025 (2213) Lease Operator: Electronic Signature Date/Time: 08/23/2025 (2213) Printed Date/Time: 08/23/2025 (261) BATCH NO: N/A PAGE 1 Signed Report CC'ed Logic: Ordering Provider: TYSON SOUSA Attending Provider: TYSON SOUSA Referring Provider: TYSON SOUSA Consulting Provider: JEWELL Mehta MD [address] [place] [address],[address], [place], [address] [place] [facility] [place] 08/24/2025 09:07:54 Problems Name Problem SNOMED Code Status Onset Date Resolution Date Notes Provider Name and Address Organization Details Recorded Time Small cell carcinoma of lung 681628989 Active 025 ZOHRA Mistry LPNT - [place] & [place] 5 08:29:03 Tobacco user 554306127 Active 025 ZOHRA Mistry [facility] - [place] & [place] 5 11:32:20 Problem Notes None recorded. Medical Equipment None Reported. Allergies Allergen ID Allergen Name Allergen Category Reaction Reaction Severity Criticality Documentation Date Start Date Code Code System Note Provider Name and Address Organization Details Recorded Time 277028 cefdinir medicatio n confusion mild high 07/23/2025 75364 RxNorm ZOHRA Mistry [facility] & [place] 5 09:11:23 986879 Boniva medicatio n other Not available high 07/23/2025 81231 4 RxNorm Cause s extre me fluct uatio n in BP ZOHRA Mistry [facility] & [place] 5 09:12:20 431756 Avelox medicatio n Not available Not available unabletoasse 07/23/2025 74272 6 RxNorm ZOHRA Mistry [facility] & [place] 5 09:12:59 Medications Name Sig Start Date [...] /min 22 /min 171/70 mm[Hg] Mia العلي [facility] 5 11:32:37 Date Recorded Body height Body temperature Oxygen saturation Oxygen saturation in Arterial blood by Pulse oximetry Inhaled oxygen flow rate Heart rate Respiratory rate Systolic And Diastolic Provider Name and Address Organization Details Last Updated DateTime 5 157.48 cm 98.2 [degF] 90 % 90 % 2 L/min 74 /min 22 /min 184/77 mm[Hg] Mia Dumont [facility] & [place] 5 14:13:26 Social History Question Answer Notes LastModified by Organizat ion Details LastModified Time Tobacco Smoking Status Current Every Day Smoker Mia David Dumont [facility], [place] - [facility] - [place] & [place] 07/23/2025 11:30:06 What Was The Date Of [...] Cessation Brochures From [facility] Dept Provided Information not available 07/23/2025 On [...] ICD10 Code Diagnosis IMO Codes Diagnosis Note 4490855 MD HANNA Lozano [place] [address] 07/23/2025 10:12:44 07/23/2025 11:53:43 Small cell carcinoma of lung 399122824 C34.12 3291664066 Tobacco user 365625514 Z 72.0 4940587 5933188 Lars Mehta MD [place] [address] 8 07/26/2025 09:56:22 07/26/2025 11:19:24 Small cell carcinoma of lung 053311327 C34.12 3874334928 5298472 Lars Mehta MD [place] [address] 8 08/06/2025 12:45:36 08/06/2025 14:33:26 Small cell carcinoma of lung 283626195 C34.12 8695565399 3013244 Lars Mehta MD [place] [address] 8 08/07/2025 12:49:55 08/07/2025 13:36:59 Small cell carcinoma of lung 098082662 C34.12 9255618423 6799307 Lars Mehta MD [place] [address] 8 08/08/2025 12:53:10 08/08/2025 16:24:49 Small cell carcinoma of lung 255498350 C34.12 3783107219 5694959 Lars Mehta MD [place] [address] 8 08/09/2025 12:46:59 08/09/2025 15:49:21 Small cell carcinoma of lung 573833756 C34.12 1650992971 6367169 Lars Mehta MD [place] [address] 8 08/13/2025 11:29:50 08/13/2025 12:13:47 Small cell carcinoma of lung 170917796 C34.12 2142143604 1236890 Lars Mehta MD [facility] [address] [place] [address] 08/27/2025 14:12:24 08/27/2025 14:35:06 Small cell carcinoma of lung 499939610 C34.12 9800152545 Health Concerns Section Related Observation LastModified by Organization Detai ls LastModified Time None Recorded Concern Status LastModified by Organization Details LastModified Time None Recorded Advance Directives Directive None Recorded Payers Insurance Date Sequence Insurance Name Policy Number Policy Baxter Covered Member ID Baxter Member ID Guarantor Name 08/09/2025 1 [place] Niharika Farias Fabiángaurav [id number] 5 Niharika Saldivar Celio 08/24/2025 2 [facility] Niharika Farias Fabiángaurav [id number] Niharika Saldivar Celio Notes Date Note Type [...] on Plavix and aspirin. Lars Mehta MD [address] [place] [address],[address], [place], [address], [facility] 08/13/2025 11:40:35 08/27/2025 text/html Patient is here [...] Had mild dry cough. Lars Mehta MD [address] [place] [address],[address], [place], [address], [facility] - [facility] - [place] & [place] 08/27/2025 14:23:42 OBGyn Episode No OBEpisode recorded.
--- OUTSIDE RECORDS SUMMARY | 2025-09-17 08:51 | XMS_ITS | Patient Health Record ---
Author Organization [facility] Address [address] [facility] [address] [place] [id number] Care Team Providers Care Facing Cutting Machine Operator Name Role Phone Keeley Betancourt Primary Care Provider [phone] Allergies Allergen (clinical drug ingredient) Drug/Non Drug [...] Interpretation: Performing Lab: Notes/Report: Test performed by [facility] , [address], [place] [address] Gamal Haywood MD, Case Reviewer CLIA: [id number] Vitamin B12 [phone] pg/mL P-Comprehensive Metabolic Pa yoseph (CMP) Reviewed date:02/20/2025 09:44:27 PM Interpretation: Performing Lab: Notes/Report: Test performed by [facility] [address] [place] [address] , [place] [address] Gamal Haywood MD, Case Reviewer CLIA: [id number] Sodium 137 135-145 mmol/L Potassium 3.7 3.5-5.3 [...] Interpretation: Performing Lab: Notes/Report: Test performed by [facility] [address] [place] [address] , [facility] [place] [address] Gamal Haywood MD, Case Reviewer CLIA: [id number] Iron 140 37-145 ug/dL P-Lipid Panel Reviewed date:02/20/2025 09:44:27 PM Interpretation: Performing Lab: Notes/Report: Test performed by [facility] [address] [place] [address] , [facility] [place] [address] Gamal Haywood MD, Case Reviewer CLIA: [id number] Cholesterol 163 <200 mg/dL Triglycerides 106 <150 [...] Interpretation: Performing Lab: Notes/Report: Test performed by [facility], [facility] [address] [place] [address] Jose Juan Cartagena, [place] [address] Gamal Haywood MD, Case Reviewer CLIA: [id number] TSH 2.17 0.43-5.25 mU/L P-Microalbumin/Creatinine, R andom Urine Sample Reviewed date:02/20/2025 09:44:27 PM Interpretation: Performing Lab: Notes/Report: Test performed by [facility] [address] [place] [address] , [address], [place] [address] Gamal Haywood MD, Case Reviewer CLIA: [id number] Albumin/Creatinine Ratio, Urine 18 0-30 ug/mg Microalbumin, Urine, Random 1.4 Creatinine, Urine 77.8 Urinalysis - Inhouse Reviewed date:08/22/2025 11:35:09 AM Interpretation: Performing Lab: Notes/Report: Color/Clarity yellow Leuk neg Nitrite neg Urobili neg Protein 1.020 pH neg Blood 7.6 Sp. Gr. neg Ketone 16 Bili neg Gluc 1+ P-Culture, Urine Reviewed date:08/27/2025 10:01:44 AM Interpretation:Abnormal Performing Lab: Notes/Report: Test performed by [facility] [address] [place] [address] , [address], [place] [address] Gamal Haywood MD, Case Reviewer CLIA: [id number] Specimen Source Urine - Void Culture, Urine See Below See Microbiol ogy Report Pseudomonas aeruginosa 50,000-100,000 CF U/ml Pseudomonas aeruginosa Non-viable for sensitivities P-Lipid Panel Reviewed date:08/22/2025 11:35:09 AM Interpretation:LDL 76 Performing Lab: Notes/Report: Test performed by [facility] [address] [place] [address] , [address], [place] [address] Gamal Haywood MD, Case Reviewer CLIA: [id number] Lipid Panel Footnote See Below *Based on optimal reference values. Please refer to the DOS for additional information regarding diagnostic lipid reference ranges, patient management based on the recently updated lipid guidelines ([place] [employer]/[place] [employer] Task Force on Clinical Practice [...] 76 Units: mg/dL % Change: -13% ____ P-Comprehensive Metabolic Pa yoseph (CMP) Reviewed date:08/22/2025 11:35:09 AM Interpretation:normal Performing Lab: Notes/Report: Test performed by [facility], [employer] [address] [place] [address] , [address], [place] [address] Gamal Haywood MD, Case Reviewer CLIA: [id number] Sodium 135 135-145 mmol/L Potassium 4.8 3.5-5.3 [...] 0.3 <0.2-1.2 mg/dL A/G Ratio 1.9 1.1-2.5 CBC Venipuncture (in house) Reviewed date:08/22/2025 11:35:09 [...] - 38 platlet 392 100 - 400 CBC Fingerstick (in house) Reviewed date:10/03/2024 02:54:43 [...] Lab: Notes/Report: Abnormal Reason For Referral Reason Dr. José Miguel [place] for PAD, carotid disease; dilated left atrium Diagnosis 1 PAD (peripheral beryl ry disease) (I73.9) [facility] Referring Provider First Name Keeley Gunn Referring Provider Last Name [facility] Referring Provider [facility] ctice Referred Provider Cardiology, . Referred Provider Specialty Cardiovascul ar Disease General Notes Nanci James 2024 10:46:57 AM > faxed to [facility] as he does not have a [place] number Referral Priority Routine Reason Lung mass on chest C T Diagnosis [address] (R 93.89) [facility] Referring Provider First Name Keeley Gunn Referring Provider Last Name Serafin [facility] Ref[facility] OP Referred Provider Bartolome Brannon Referred Address [address] [place] [address] [id number], Referred Provider Specialty Pulmonary Di seases General Notes Nanci James 2024 08:41:46 AM > faxed to [facility] Pulmonology, Nanci James 05/17/2025 03:40:56 PM [...] Status Risk Notes Problem Vitamin D deficiency (67749870) Vitamin D deficiency (E55.9) Active confirmed Problem Vitamin B12 deficiency (180505415) Vitamin B12 deficiency (E53.8) Active confirmed Problem Anemia (934226783) Anemia (D64.9) Active confirmed Problem Essential hypertension (73575463) Essential hypertension (I10) Active confirmed Problem Abnormal mammogram (845640373) Abnormal mammogram (R92.8) Active confirmed Problem Seasonal allergy (349300836) Seasonal allergies (J30.2) Active confirmed Problem Iron deficiency anemia (89662108) Iron deficiency anemia (D50.9) Active confirmed Problem Primary osteoarthritis (113325049) Primary osteoarthritis involving multiple joints (M15.0) Active confirmed Problem COPD - Chronic obstructive pulmonary disease (75450419) Chronic obstructive pulmonary disease, unspecified COPD type (J44.9) Active confirmed Problem Obstructive sleep apnea syndrome (02361283) FRANSISCO (obstructive sleep apnea) (G47.33) Active confirmed Problem Localized, primary osteoarthritis of the pelvic region and thigh (352314996) 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) Active confirmed Problem Tobacco user (730618481) Cigarette nicotine dependence without complication (F17.210) Active confirmed Problem Dyslipidemia (984030053) Dyslipidemia (E78.5) Active confirmed Problem Peripheral vascular disease (469448054) PAD (peripheral artery disease) (I73.9) Active confirmed Problem Tobacco use (625389553) Tobacco use disorder (F17.200) Active confirmed Problem Age-related osteoporosis (029910479) Osteoporosis without current pathological fracture, unspecified osteoporosis type (M81.0) Active confirmed Problem Osteoporosis (56911819) Osteoporosis, unspecified (M81.0) Active confirmed Problem Atelectasis (55115711) Atelectasis of both lungs (J98.11) Active confirmed Problem Ex-smoker (finding) (3629111) History of cigarette smoking (Z87.891) Active confirmed Problem Left carotid artery occlusion (337254208377637) Left carotid stenosis (I65.22) Active confirmed Problem Radiology result abnormal (510026577) Abnormal chest CT (R93.89) Active confirmed Problem Small cell lung cancer (098434618) Small cell lung cancer (C34.90) Active confirmed Problem S/P hip hemiarthroplasty (Z96.649) Active confirmed Vital Signs Heart Rate 42 /min 08/21/2025 Blood pressure diastolic 60 mm Hg 08/21/2025 Height 63.50 in 08/21/2025 Blood pressure systolic 120 mm Hg 08/21/2025 Weight 120 lbs 08/21/2025 BMI 20.92 kg/m2 08/21/2025 Encounters Encounter Location Date Provider Diagnosis [facility] [address] [facility] [address] [place] [id number] 10/03/2024 Keeley Betancourt Iron deficiency anem ia D50.9 [facility] [address] [facility] [address] [place], [place] [id number] 02/15/2025 Keeley Betancourt Adult general medica l [...] in adult Z68.1 and Osteoporosis, unspecified M81.0 [facility] [address] [facility] [address] [place] [id number] 04/12/2025 R Luis A Betancourt Tobacco use disorder F17.200 ; Chronic obstructive pulmonary disease, unspecified COPD type J44.9 ; Atelectasis of both lungs J98.11 and FRANSISCO (obstructive sleep apnea) G47.33 [facility] [address] [facility] [address] [place] [id number] 08/21/2025 R Luis A Betancourt Essential hypertensi [...] immunization Z23 and BMI 20.0-20.9, adult Z68.20 [facility] [address] [facility] [address] [place] [id number] 09/03/2025 R Luis A Betancourt [place] [address] [facility] [address] [place] [id number] 02/20/2025 R Luis A Betancourt [facility] [address] [facility] [address] [place] [id number] 05/07/2025 R Luis A Betancourt Abnormal chest CT R9 3.89 [facility] [address] [facility] [address] [place] [id number] 08/22/2025 R Luis A Betancourt [facility] [address] [place] [id number] 08/27/2025 Keeley Betancourt [facility] [address] [place] [id number] 09/04/2025 Keeley Betancourt Dyslipidemia E78.5 Assessments Encounter [...] Brannon, Dr. Rojas, and radiation oncology in [place]. 04/12/2025 Atelectasis of both lungs (ICD-10 - J98.11) 02/15/2025 Dyslipidemia (ICD-10 - E78.5) 02/15/2025 Chronic obstructive pulmonary disease, unspecified COPD type (ICD-10 - J44.9) 04/12/2025 FRANSISCO (obstructive sleep apnea) (ICD-10 - G47.33) 08/21/2025 Dyslipidemia (ICD-10 - E78.5) 08/21/2025 Primary osteoarthritis involving multiple joints (ICD-10 - M15.0) 02/15/2025 Primary osteoarthritis involving multiple joints (ICD-10 - M15.0) 02/15/2025 FRANSISOC (obstructive sleep apnea) (ICD-10 - G47.33) 08/21/2025 [...] [address], [place], [id number], Insurance Providers Payer Name Payer Address Payer Phone Subscriber Number Group Number Insured Name Patient Relationship to Insured Coverage Start Date Coverage End Date MEDICARE PART B [address] [address] [place] [id number] NIHARIKA NARVAEZ Self - [place] [address] [id number] NIHARIKA NARVAEZ Self - patient is the [...] no intervention 06/2025 Hospitalization History Reason Date(Month/Year) [facility] in [place] 11/2014
--- OUTSIDE RECORDS SUMMARY | 2025-09-17 08:51 | XMS_ITS | Continuity of Care Document ---
Author Organization [place] [facility] Address [address] [place] [address] Care Team Providers Care University Controller Name Role Phone MAXIMILIANO CORCORAN Primary Care [...] skull base to mid-thigh scan 2024 025 [facility] (Centralized Scheduling), [address] [place] [address], [address], 07/30/2025 12:22:55 Medication Orders nicotine 14 mg/24 hr daily transderm al patch 2024 025 ej [facility], [address], [address], 07/23/2025 11:46:41 Patient TargetsNo targets recorded. Patient InstructionsNo instructions recorded. Reason for Referral None Reported. Results Created Date Observation Date Name Description Value Unit Range Abnormal Flag Note LastModifiedBy Organization Detail LastModifiedTime 07/30/2007/30/2025 PET-C T, skull base to mid-t high scan [facility] Name: NIHARIKA NARVAEZ FAY [address] [place] [address] Phys: [place] [address] : 1949 Age: 74 Sex: F Acct: [id number] Loc: G.PET PHONE #: Exam Date: 2024 Status : DEP CLI FAX #: Rad# [id number] Unit# [id number] Admit Date: 2024 EXAMS: CPT CODE: [id number] 457 PET W/CT SKULL- MID THIGH 46488 EXAMIN ATION: SKULL BASE TO MID THIGH [...] nodes. PAGE 1 Signed Report (JEFF NUED) [facility] Name: NIHARIKA NARVAEZ FAY [address] Phys: Sandra dickinson [place] [address] : 1949 Age: 74 Sex: F Acct: [id number] Loc: G.PET PHONE #: [phone] Exam Date: 2024 Status : DEP CLI FAX #: Rad# [id number] Unit# [id number] Admit Date: 2024 EXAMS: CPT CODE: [id number] 457 PET W/CT SKULL- MID THIGH 33640 ABDOME N AND PELVIS : Wide range [...] MD PAGE 2 Signed Report (JEFF NUED) [facility] Name: NIHARIKA NARVAEZ [employer] Phys: [place] [address] : 1949 Age: 74 Sex: F Acct: [id number] Loc: G.PET PHONE #: Exam Date: 2024 Status : DEP CLI FAX #: [phone] Rad# [id number] Unit# [id number] Admit Date: 2024 EXAMS: CPT CODE: [id number] 457 PET W/CT SKULL- MID THIGH 61366 CC: Peter Giordano M.D.; Lars dickinson MD Dictat ed Date/T nayeli: 2024 (1209) Techno logist : TIFFANY SHARP, CLINICAL ABSTRACTOR Transc ribed Date/T nayeli: 2024 (1209) Transc riptio nist: DR.IND Dumont onic Signat ure Date/T nayeli: 2024 (1209) Printe d Date/T anyeli: 2024 (1221) BATCH NO: N/A PAGE 3 Signed Report CC'ed Logic: Orderi ng Provid er: SANDRA SOUSA Attend ing Provid er: SANDRA SOUSA Referr ing Provid er: SANDRA SOUSA Consul ting Provid er: MILLY [facility] [address] [place], [address], 07/30/2025 13:12:15 07/30/20 25 07/30/2025 PET-C T, skull base to mid-t high scan [facility] Name: NIHARIKA NARVAEZ [employer] Phys: Sandra dickinson MD,[place] [address] : 1949 Age: 74 Sex: F Acct: [id number] Loc: Dhaval.PET PHONE #: [phone] Exam Date: 2024 Status : DEP CLI FAX #: Rad# [id number] Unit# [id number] Admit Date: 2024 Report Has Been Amende d EXAMS: CPT CODE: [id number] 457 PET W/CT SKULL- MID THIGH 69484 Addend - 2024 SIGNED 2024 ADDEND UM: [id number] 457 PET/WC TSKMT ADDEND UM #1 Greate [...] NECK: PAGE 1 Signed Report (JEFF NUED) [facility] Name: NIHARIKA NARVAEZ FAY [address] Phys: Sandra dickinson [place] [address] : 1949 Age: 74 Sex: F Acct: [id number] Loc: Dhaval.PET PHONE #: Exam Date: 2024 Status : DEP CLI FAX #: Rad# [id number] Unit# [id number] Admit Date: 2024 Report Has Been Amende d EXAMS: CPT CODE: [id number] 457 PET W/CT SKULL- MID THIGH 19742 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 [...] aorta, series 2 image 146. MUSCUL OSKELE FLODY: 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 Non-di agnost ic CT findin gs: Bilate ral hip prosth eses. Diffus e bony demine raliza tion. IMPRES CHRIS: PAGE 2 Signed Report (JEFF NUED) [facility] Name: NIHARIKA NARVAEZ FAY [address] [employer] [employer] Phys: Sandra dickinson [place] [address] : 1949 Age: 74 Sex: F Acct: [id number] Loc: Dhaval.PET PHONE #: Exam Date: 2024 Status : DEP CLI FAX #: Rad# [id number] Unit# [id number] Admit Date: 2024 Report Has Been Amende d EXAMS: CPT CODE: [id number] 457 PET W/CT SKULL- MID THIGH 19991 Intens e uptake to left upper lobe [...] r PAGE 3 Signed Report (JEFF NUED) [facility] Name: NIHARIKA NARVAEZ FAY [address] Phys: Sandra dickinson MD,[place] [facility] [place] [address] : 1949 Age: 74 Sex: F Acct: [id number] Loc: G.PET PHONE #: Exam Date: 2024 Status : DEP CLI FAX #: Rad# [id number] Unit# [id number] Admit Date: 2024 Report Has Been Amende d EXAMS: CPT CODE: [id number] 457 PET W/CT SKULL- MID THIGH 09309 medici ne bone scan Septem 2024 FINDIN [...] 146. PAGE 4 Signed Report (JEFF NUROLDAN) [facility] Name: NIHARIKA NARVAEZ FAY [address] Phys: Sandra dickinson MD,[place] [address] : 1949 Age: 74 Sex: F Acct: [id number] Loc: G.PET PHONE #: [phone] Exam Date: 2024 Status : DEP CLI FAX #: [phone] Rad# [id number] Unit# [id number] Admit Date: 2024 Report Has Been Amende d EXAMS: CPT CODE: [id number] 457 PET W/CT SKULL- MID THIGH 01852 MUSCUL OSKELE FLOYD: Physio logic radiot racer [...] 2024 (1209) Techno logist : TIFFANY SHARP, CLINICAL ABSTRACTOR Transc ribed Date/T nayeli: 2024 (1209) Transc riptio nist: DR.IND Dumont onic Signat ure Date/T nayeli: 2024 (1209) Printe d Date/T nayeli: 2024 (1506) BATCH NO: N/A PAGE 5 Signed Report CC'ed Logic: Orderi ng Provid er: SANDRA SOUSA Attend ing Provid er: SANDRA SOUSA Referr ing Provid er: SANDRA SOUSA Consul ting Provid er: MILLY [facility] [address] , [place], [address], 07/31/2025 08:11:40 08/23/20 25 08/23/2025 XR, chest , 2 view [facility] Name: NIHARIKA NARVAEZ FAY [facility] [address] Phys: Sandra dickinson MD,[place] [address] : 1949 Age: 75 Sex: F Acct: [id number] Loc: G.RAD PHONE #: [phone] Exam Date: 2024 Status : REG CLI FAX #: Rad# [id number] Unit# [id number] Admit Date: 2024 EXAMS: CPT CODE: [id number] [id number] CHEST 2 VIEWS 33806 CHEST RADIOG RAPHS, 2 VIEWS CLINIC AL [...] 2024 (2214) Printe d Date/T nayeli: 2024 (3691) BATCH NO: N/A PAGE 1 Signed Report CC'ed Logic: Orderi ng Provid er: SHEZACK SOUSA Attend ing Provid er: SHEZACK SOUSA Referr ing Provid er: SHEKriit SOUSA Consul ting Provid er: MILLY [place] [address] , [place], [address], 08/24/2025 09:07:54 Result Notes None recorded. Problems Name Problem SNOMED Code Status Onset Date Resolution Date Notes Provider Name and Address Organization Details Recorded Time Small cell carcinoma of lung 472537683 Active 025 Mia sifuentes, [place] - [facility] [place] 5 08:29:03 Tobacco user 257173080 Active 025 Mia sifuentes, [place] - [facility] [place] 5 11:32:20 Problem Notes None recorded. Medical Equipment None Reported. Allergies Allergen ID Allergen Name Allergen Category Reaction Reaction Severity Criticality Documentation Date Start Date Code Code System Note Provider Name and Address Organization Details Recorded Time 049432 cefdinir medicatio n confusion mild [facility] 07/23/2025 98420 RxNorm Mia sifuentes, [place] - [facility] [place] 5 09:11:23 429805 Boniva medicatio n other Not available [facility] 07/23/2025 80615 4 RxNorm Cause s extre me fluct uatio n in BP Mia sifuentes, [place] - [facility] [place] 5 09:12:20 294573 Avelox medicatio n Not available Not available [facility] 07/23/2025 42008 6 RxNorm Mia sifuentes, [place] - [facility] [place] 5 09:12:59 Medications Name Sig Start Date [...] Last Updated DateTime 157.48 cm 21.2 kg/m2 63719.7 1 g 97.3 [degF] 83 % 83 % 74 /min 20 /min 163/72 mm[Hg] Mia العلي [facility] [place] 11:17:18 Social History Question Answer Notes LastModified by Organizat ion Details LastModified Time Tobacco Smoking Status Current Every Day Smoker Mia Dumont [facility] [place] 07/23/2025 11:30:06 What Was The Date Of [...] Been Provided? Yes Smoking Cessation Brochures From [facility] Provided Information not available [...] ICD10 Code Diagnosis IMO Codes Diagnosis Note [id number] MD H[facility] [place] [address] 07/23/2025 10:12:44 07/23/2025 11:53:43 Small cell carcinoma of lung 250652818 C34.12 1774909812 Tobacco user 907817001 Z 72.0 6221868 Health Concerns Section Related Observation LastModified by Organization Detai ls LastModified Time None Recorded Concern Status LastModified by Organization Details LastModified Time None Recorded Payers Encounter Date Sequence Insurance Name Policy Number Policy Baxter Covered Member ID Baxter Member ID Guarantor Name 07/23/2025 1 [employer] (MEDICARE) Niharika Farias Celio [id number] Niharika Narvaez 07/23/2025 2 [facility] Niharika Farias Celio [id number] Niharika Narvaez Notes Date Note Type Note [...] back later on 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 Family stated that she had recent poor memory for couple of years. Lars Mehta MD [address] [facility],[address], [place], [address], [facility] [place] [facility] [place] [facility] [place] 07/23/2025 11:46:35 OBGyn Episode No OBEpisode recorded.
--- OUTSIDE RECORDS SUMMARY | 2025-09-17 08:51 | XMS_ITS | Clinical Summary ---
Author Organization [facility] Address [address] [place] [address] Phone Care Team Providers Care Lap Runner Name Role Phone Rosemarie SINGH, Ezequiel Dubois Unavailable [phone] JEWELL SINGH, MAGO Unavailable [phone] Reason for Visit and Chief Complaint The Chief Complaint is: Left DEANNA Problems Includes: Problems addressed during this encounter and other active Problems All Visits Onset Date Resolved Date Provider Condition S tatus Joint Pain Hip Right 08/02/2025 Young Rajan Active Last Documented On 5 1:44PM ; [facility] Joint Pain Hip Bilateral 03/17/2018 Ezequiel Houston MD Active Last Documented On 8 3:22PM ; [facility] Plan of Treatment Fall Risk [...] - Last Documented On 08/02/2025 2:10PM ; [facility] Patient is very pleased with the hip surgery, reports no issues today. We will plan for follow up 5 year postop intervals - Last Documented On 08/02/2025 2:10PM ; [facility] Pending Tests Order Diagnosis Results Due Ordering Polly dwyer Lab Hemoglobin A1c 04/19/24 Young F Hen son PA-C Last Documented On 4 8:14AM ; [facility], [facility] Lab CBC With Differential/Platelet 04/19 Young Farias Rashaad PA-C Last Documented On 4 8:14AM ; [facility] Lab Prothrombin Time (PT) 04/19/24 Ann-Marie Farias Rashaad PA-C Last Documented On 4 8:14AM ; [facility] Lab PTT, Activated 04/19/24 Young Farias Winston son PA-C Last Documented On 4 8:14AM ; [facility] Lab Prealbumin 04/19/24 Young Farias Rashaad PA-C Last Documented On 4 8:14AM ; [facility] Lab Fructosamine 04/19/24 Young Farias Maura jaime PA-C Last Documented On 4 8:14AM ; [facility] Lab MRSA by DA 04/19/24 Young Dinora Rashaad PA-C Last Documented On 4 8:14AM ; [facility] Lab Comp. Metabolic Panel (14) 04/19/24 Young Dinora Rashaad PA-C Last Documented On 4 8:14AM ; [facility], [facility] Instructions to patient Instructions for patient to see pcp for bp Last Documented On 5 1:44PM ; [facility] Intervention and counseling 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 of tobacco use Last Documented On 5 1:44PM ; [facility] Assessments Includes: Assessments from this encounter Findings 1 year status post left DEANNA - Last Documented On 08/02/2025 2:10PM ; [facility] Instructions Includes: Instructions from this encounter Instructions to patient Instructions for patient to see pcp for bp Last Documented On 5 1:44PM ; [facility] Intervention and counseling 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 of tobacco use Last Documented On 5 1:44PM ; [facility] Medical Equipment - Implanted Devices Includes: Current Devices No Medical Equipment Recorded Medications Includes: Medications discussed during this encounter and other current Medications Current Medications (continue as prescribed) Aspirin 81 81 MG Oral Tablet Chewable 05/02/2024 Provider: Ezequiel ruby MD Diagnosis: once a day Last Documented On 4 8:31AM By Hung Houston ; [facility] traMADol HCl 50 MG Oral Tablet 05/01/2024 Provider: Ezequiel Houston MD Diagnosis: 1-2 po q 4-6h Last Documented On 4 2:09PM By Hung Houston ; [facility] oxyCODONE HCl 5 MG Oral Tablet 05/01/2024 Provider: Ezequiel Houston MD Diagnosis: 1-2 po q 4-6h Last Documented On 4 2:09PM By Hung Houston ; [facility] Tranexamic Acid 650 MG Oral Tablet 05/01/2024 Provid er: Ezequiel Houston MD Diagnosis: as directed TAKE 3 TABLETS O NE TIME A DAY BEGINNING THE EVENING OF SURGERY FOR FOUR DAYS Last Documented On 4 2:09PM By Hung Houston ; [facility] Ondansetron HCl 4 MG Oral Tablet 05/01/2024 Provider : Ezequiel Houston MD Diagnosis: 1ltb6-4q Last Documented On 4 2:09PM By Hung Houston ; [facility] Meloxicam 15 MG Oral Tablet 05/01/2024 Provider: Ezequiel Houston MD Diagnosis: once a day Last Documented On 4 2:09PM By Hung Houston ; [facility] Colace 100 MG Oral Capsule 05/01/2024 Provider: Danna Houston MD Diagnosis: 1-2 tabs daily Last Documented On 4 2:09PM By Hung Houston ; [facility] Cefadroxil 500 MG Oral Capsule 05/01/2024 Provider: Ezequiel Houston MD Diagnosis: twice a day Last Documented On 4 2:09PM By Hung Houston ; [facility] Acetaminophen 500 MG Oral Tablet 05/01/2024 Provider : Ezequiel Houston MD Diagnosis: 2 three times a day Last Documented On 4 2:09PM By Hung Houston ; [facility] Albuterol Sulfate HFA 108 (9 0 Base) MCG/ACT Inhalation Aerosol Solution 03/14/2024 Provider: Diagnosis: Last Documented On 4 7:33AM By Abdirashid Mayfield ; [facility] DULoxetine HCl 30 MG Oral Capsule Delayed Release Spri nkle 03/14/2024 Provider: Diagnosis: Last Documented On 4 7:34AM By Abdirashid Mayfield ; [facility] Metoprolol Succinate ER 100 MG Oral Tablet Extended Release 24 Hour 03/14/2024 Provider: Diagnosis: Last Documented On 4 7:35AM By Abdirashid Mayfield ; [facility] Benazepril HCl 40 MG Oral Tablet 03/03/2024 Provider : MAGO CORCORAN MD Diagnosis: Last Documented On 4 9:22AM By Paula Lewis ; [facility] Fluticasone Propionate 50 MC G/ACT Nasal Suspension 03/02/2024 Provider: MAGO CORCORAN MD Diagnosis: Last Documented On 4 9:22AM By Paula Lewis ; [facility] Atorvastatin Calcium 40 MG Oral Tablet 03/02/2024 Pr ovider: MAGO CORCORAN MD Diagnosis: Last Documented On 4 9:22AM By Paula Lewis ; [facility] amLODIPine Besylate 10 MG Oral Tablet 03/02/2024 Pro vider: MAGO CORCORAN MD Diagnosis: Last Documented On 4 9:22AM By Paula Lewis ; [facility] Alendronate Sodium 70 MG Oral Tablet 03/02/2024 Prov ider: MAGO CORCORAN MD Diagnosis: Last Documented On 4 9:22AM By Paula Lewis ; [facility] Furosemide 40 MG Oral Tablet 03/02/2024 Provider: MAGO CORCORAN MD Diagnosis: Last Documented On 4 9:22AM By Paula Lewis ; [facility] Clopidogrel Bisulfate 75 MG Oral Tablet 03/02/2024 P rovider: MAGO CORCORAN MD Diagnosis: Last Documented On 4 9:22AM By Paula Lewis ; [facility] Past Medications on file TraMADol HCl 50MG Oral Tablet 03/22/2018 - 03/27/2018 Provider: Ezequiel ravi MD Diagnosis: 2 Tablets every 6 hours PRN pain for surgery DO NOT FILL TILL 18 Last Documented On 8 10:34AM By Bella Deleon ; [facility] OxyCODONE HCl 5MG Oral Tablet 03/22/2018 - 03/24/2018 Provider: Ezequiel ravi MD Diagnosis: 1-2 pills every 4-6 hours KS N pain for surgery DO NOT FILL TILL 18 Last Documented On 8 10:33AM By Bella Deleon ; [facility] Colace 100MG Oral Capsule 03/22/2018 - 06/20/2018 Provider: Ezequiel ravi MD Diagnosis: 1-2 tabs daily for surgery * *DO NOT FILL TILL 03-28-18 Last Documented On 8 10:40AM By Bella Deleon ; [facility] Acetaminophen 500MG Oral Tablet 03/22/2018 - 03/30/2018 Provider: Ezequiel Houston MD Diagnosis: 2 three times a day for surg tiffanie DO NOT FILL TILL 03-28-18 Last Documented On 8 10:40AM By Bella Deleon ; [facility] Mupirocin 2% External Ointment 03/21/2018 - 03/26/2018 Provider: Ezequiel ravi MD Diagnosis: Apply to nostrils 3 time a d ay 5 days prior to surgery. Last Documented On 8 10:49AM By Jaja Rutledge ; [facility] Medications Administered Includes: Administered Medications from this encounter No Administered Medications Recorded Vital Signs Includes: Vital Signs from this encounter Vital Name 08/02/2025 01:44P Height (in) 62 Weight (lb) 115 Body Mass Index 21 Body Surface Area 1.5 Note: ab Last Documented: On 08/02/2025 1:59PM ; [facility] Results Includes: Results discussed during this [...] diet 08/02/2025 Last Documented On 2:10PM ; [facility] Not using drugs 08/02/2025 Last Documented On 2:10PM ; [facility] Alcohol use 03/07/2024 Last Documented On 1:44PM ; [facility] Caffeine use 03/07/2024 Last Documented On 1:44PM ; [facility] Not exercising regularly 03/07/2024 Last Documented On 1:44PM ; [facility] Yes, current smoker. 03/07/2024 Last Documented On 1:44PM ; [facility] Tobacco use 03/07/2024 Last Documented On 1:44PM ; [facility] Smoking status Current some day smoker 0 03/17/2018 Last Documented On 1:44PM ; [facility] Current smoker 03/17/2018 Last Documented On 1:44PM ; [facility] Procedures and Surgical History Includes: Procedures from this encounter Procedures Code Diagnosis Performing Provider Service Location Service Date PELVIS w/ 2-3 VIEW HIP (RIGHT) 50516 Unilateral primary osteoarthritis, right hip, Presence of right artificial hip joint Young Neil PA-C [facility] 08/02/2025 Last Documented On 2:46PM ; [facility] history of orthopedic options: physical therapy Last Documented On 1:44PM ; [facility] intervention and counseling 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 4000F Last Documented On 1:44PM ; [facility] use of tobacco assessment performed 1000F Last Documented On 1:44PM ; [facility] patient screened for future fall risk: documentation of any fall with injury in past year 1100F Last Documented On 1:44PM ; [facility] review of medications documented 1160F Last Documented On 1:44PM ; [facility] Clinical summary provided to patient Last Documented On 1:44PM ; [facility] an X-ray was performed 73093 Last Documented On 5 1:44PM ; [facility] an MRI was performed 92840 Last Documented On 1:44PM ; [facility] Surgical History Last Updated History of Previous Fractures 03/07/2024 Last Documented On 5 1:44PM ; [facility] History of total hip replacement 024 Last Documented On 1:44PM ; [facility] History of back surgery 03/17/2018 Last Documented On 1:44PM ; [facility] Medical History Includes: Medical History addressed during this encounter Description Last Updated History of arthritis 03/07/2024 Last Documented On 1:44PM ; [facility] History of History of Emphysema 03/07/20 24 Last Documented On 1:44PM ; [facility] History of Sleep Apnea 03/07/2024 Last Documented On 1:44PM ; [facility] Arthritic joint problems 03/17/2018 Last Documented On 1:44PM ; [facility] Family History Includes: Family History addressed during this encounter Description Last Updated Diabetes mellitus 03/07/2024 Last Documented On 5 1:44PM ; [facility] Family history of heart disease 03/07/20 24 Last Documented On 1:44PM ; [facility] Family history of osteoporosis 4 Last Documented On 1:44PM ; [facility] Fraternal history of diabetes mellitus 0 03/17/2018 Last Documented On 1:44PM ; [facility] Maternal history of family history of he art disease 03/17/2018 Last Documented On 5 1:44PM ; [facility] Maternal history of osteoporosis 018 Last Documented On 5 1:44PM ; [facility] Paternal aunt's history of rheumatoid ar thritis 03/17/2018 Last Documented On 5 1:44PM ; [facility] Review of Systems Includes: Review [...] Active Last Documented On 5 1:44PM ; [facility] Encounters Encounter Provider Location Date Check-In Time Check- Out Time Diagnosis Follow Up Young Neil PA-C [facility] 5 1:34PM 2:08PM Insurance Includes: Active Insurance Policies Plan Name Member ID Group # Subscriber Relationship Effect kar Dates 1 - Medicare Part B of [place] [id number] Antonia Pickens Self 2 - [facility] [id number] Antonia Pickens Self 11/08/2017 - Unknown Clinical Notes Includes: Clinical Notes from this encounter * Progress note Date Encounter Last Documented by 08/02/2025 Follow Up Last documented on 08/02/2025; 2:10 PM, Young Neil PA-C; [facility] Active Problems & Conditions - Joint [...] - Ondansetron HCl 4 MG Oral Tablet 0ora3-8q, 5 days, 0 refills - oxyCODONE HCl [...] Care Team - MAGO CORCORAN MD - [employer] MACHINE FEEDER
[2025-09-17 08:52] LABS: Folate 10.10 ng/mL
--- OUTSIDE RECORDS SUMMARY | 2025-09-17 08:52 | XMS_ITS | Referral Summary ---
Author Organization [employer] ([place], [place], [place], [place], [place]) Address [address] [place] [address] Care Team Providers Care Networking Administrator Name Role Phone Ezequiel Houston MD Primary [...] the past 12 months, has t he Monitor [employer], gas, oil, or water [employer] threatened to shut off services in your [...] living situation today? I have a [facility] place to live 05/02/2024 Think about the [...] Do you speak a language other than [place] at [facility]? No 05/02/2024 Do you want help [...] Treatment Not on file Insurance [employer] [id number] MEDICARE PART A B Advance Directives For more information, please contact: [phone] * Full Code (Latest Code Status on File) Date Activated Date Inactivated Comments 05/02/2024 8:35 PM 05/03/2024 7:01 PM -Attempt Res uscitation if person has no pulse and is not breathing. -If no pulse or not breathing attempt CPR/CODE. -Call Rapid Response if patient is in distress. Care Teams Networking Administrator Relationship Specialty Start Date End Date Ezequiel Houston MD PCP - General Orthopedic Surgery 05/02/24
--- OUTSIDE RECORDS SUMMARY | 2025-09-17 08:52 | XMS_ITS | Clinical Summary ---
Author Organization [facility] Address [address] [place] [address] Phone Care Team Providers Care Bacteriology Research Assistant Name Role Phone Rosemarie SINGH, Ezequiel Dubois Unavailable [phone] JEWELL SINGH, MAGO Unavailable [phone] Reason for Visit and [...] [facility] Plan of Treatment - Patient screened for future fall risk: documentation of any fall with injury in past year - Last Documented On 08/01/2024 2:37PM ; [facility] Fall Risk Assessment: This patient has [...] - Last Documented On 08/01/2024 2:37PM ; [facility] Patient is now almost 12 weeks [...] 8:31AM By Hung Houston ; [facility] traMADol HCl 50 MG Oral Tablet 05/01/2024 Provider: Ezequiel Houston MD Diagnosis: 1-2 po q 4-6h Last Documented On 4 2:09PM By Hung Houston ; [facility] oxyCODONE HCl 5 MG Oral Tablet 05/01/2024 Provider: Ezequiel Houston MD Diagnosis: 1-2 po q 4-6h Last Documented On 4 2:09PM By Hung Houston ; [facility] Tranexamic Acid 650 MG Oral Tablet 05/01/2024 Provid er: Ezequiel Houston MD Diagnosis: as directed TAKE 3 TABLETS O NE TIME A DAY BEGINNING THE EVENING OF SURGERY FOR FOUR DAYS Last Documented On 4 2:09PM By Hung Houston ; [facility] Ondansetron HCl 4 MG Oral Tablet 05/01/2024 Provider : Ezequiel Houston MD Diagnosis: [id number] Last Documented On 4 2:09PM By Hung Houston ; [facility] Meloxicam 15 MG Oral Tablet 05/01/2024 Provider: Ezequiel Houston MD Diagnosis: once a day Last Documented On 4 2:09PM By Hung Houston ; [facility] Colace 100 MG Oral Capsule 05/01/2024 Provider: Danna Houston MD Diagnosis: 1-2 tabs daily Last Documented On 4 2:09PM By Hung Houston ; [facility] Cefadroxil 500 MG Oral Capsule 05/01/2024 Provider: Ezequiel oHuston MD Diagnosis: twice a day Last Documented On 4 2:09PM By Hung Houston ; [facility] Acetaminophen 500 MG Oral Tablet 05/01/2024 Provider : Ezequiel Houston MD Diagnosis: 2 three times a day Last Documented On 4 2:09PM By Hung Houston ; [facility], [facility] Albuterol Sulfate HFA 108 (9 0 Base) MCG/ACT Inhalation Aerosol Solution 03/14/2024 Provider: Diagnosis: Last Documented On 4 7:33AM By Abdirashid Mayfield ; [facility], [facility] DULoxetine HCl 30 MG Oral Capsule Delayed Release Spri nkle 03/14/2024 Provider: Diagnosis: Last Documented On 4 7:34AM By Abdirashid Mayfield ; [facility], [facility] Metoprolol Succinate ER 100 MG Oral Tablet Extended Release 24 Hour 03/14/2024 Provider: Diagnosis: Last Documented On 4 7:35AM By Abdirashid Mayfield ; [facility], [facility] Benazepril HCl 40 MG Oral Tablet 03/03/2024 Provider : MAGO CORCORAN MD Diagnosis: Last Documented On 4 9:22AM By Paula Lewis ; [facility], [facility] Fluticasone Propionate 50 MC G/ACT Nasal Suspension 03/02/2024 Provider: MAGO CORCORAN MD Diagnosis: Last Documented On 4 9:22AM By Paula Lewis ; [facility], [facility] Atorvastatin Calcium 40 MG Oral Tablet 03/02/2024 Pr ovider: MAGO CORCORAN MD Diagnosis: Last Documented On 4 9:22AM By Paula Lewis ; [facility] amLODIPine Besylate 10 MG Oral Tablet 03/02/2024 Pro vider: MAGO CORCORAN MD Diagnosis: Last Documented On 4 9:22AM By Paula Lewis ; [facility] Alendronate Sodium 70 MG Oral Tablet 03/02/2024 Prov ider: MAGO CORCORAN MD Diagnosis: Last Documented On 4 9:22AM By Paula Lewis ; [facility] Furosemide 40 MG Oral Tablet 03/02/2024 Provider: MAGO CORCORAN MD Diagnosis: Last Documented On 4 9:22AM By Paula Lewis ; [facility] Clopidogrel Bisulfate 75 MG Oral Tablet 03/02/2024 P rovider: MAGO CORCORAN MD Diagnosis: Last Documented On 4 9:22AM By Paula Lewis ; [facility], [facility] Past Medications on file TraMADol HCl 50MG Oral Tablet 03/22/2018 - 03/27/2018 Provider: Ezequiel ravi MD Diagnosis: 2 Tablets every 6 hours PRN pain for surgery DO NOT FILL TILL 03-28-18 Last Documented On 8 10:34AM By Bella Deleon ; [facility], [facility] OxyCODONE HCl 5MG Oral Tablet 03/22/2018 - 03/24/2018 Provider: Ezequiel ravi MD Diagnosis: 1-2 pills every 4-6 hours NC N pain for surgery DO NOT FILL TILL 18 Last Documented On 8 10:33AM By Bella Deleon ; [facility], [facility] Colace 100MG Oral Capsule 03/22/2018 - 06/20/2018 Provider: Ezequiel ravi MD Diagnosis: 1-2 tabs daily for surgery * *DO NOT FILL TILL 18 Last Documented On 8 10:40AM By Bella Deleon ; [facility] Acetaminophen 500MG Oral Tablet 03/22/2018 - 03/30/2018 Provider: Ezequiel Houston MD Diagnosis: 2 three times a day for surg tiffanie DO NOT FILL TILL 03-28-18 Last Documented On 8 10:40AM By Bella Deleon ; [facility] Mupirocin 2% External Ointment 03/21/2018 - 03/26/2018 Provider: Ezequiel ravi MD Diagnosis: Apply to nostrils 3 time a d ay 5 days prior to surgery. Last Documented On 8 10:49AM By Jaja Rutledge ; [facility] Medications Administered Includes: Administered Medications from this encounter No Administered Medications Recorded Vital Signs Includes: Vital Signs from this encounter Vital Name 08/01/2024 02:03P Height (in) 62 Weight (lb) 122 Body Mass Index 22.3 Body Surface Area 1.5 Note: ab Last Documented: On 08/01/2024 2:03PM ; [facility] Results Includes: Results discussed during this encounter [...] Documented On 4 2:37PM ; [facility] Not using drugs 08/01/2024 Last Documented On 4 2:37PM ; [facility] Alcohol use 03/07/2024 Last Documented On 4 2:02PM ; [facility] Caffeine use 03/07/2024 Last Documented On 4 2:02PM ; [facility] Not exercising regularly 03/07/2024 Last Documented On 4 2:02PM ; [facility] Yes, current smoker. 03/07/2024 Last Documented On 4 2:02PM ; [facility] Tobacco use 03/07/2024 Last Documented On 4 2:02PM ; [facility] Smoking status Current some day smoker 0 03/17/2018 Last Documented On 4 2:02PM ; [facility] Current smoker 03/17/2018 Last Documented On 4 2:02PM ; [facility] Procedures and Surgical History Includes: Procedures from this encounter Procedures Code Diagnosis Performing Provider Service L ocation Service Date history of orthopedic options: physical therapy Last Documented On 4 2:02PM ; [facility] 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 4000F Last Documented On 4 2:02PM ; [facility] use of tobacco assessment performed 1000F Last Documented On 4 2:02PM ; [facility] patient screened for future fall risk: documentation of any fall with injury in past year 1100F Last Documented On 4 2:02PM ; [facility] review of medications documented 1160F Last Documented On 4 2:02PM ; [facility] Clinical summary provided to patient Last Documented On 4 2:02PM ; [facility] Last Documented On 4 2:02PM ; [facility] an MRI was performed 77366 Last Documented On 4 2:02PM ; [facility] Surgical History Last Updated History of Previous Fractures 03/07/2024 Last Documented On 4 2:02PM ; [facility] History of total hip replacement 024 Last Documented On 4 2:02PM ; [facility] History of back surgery 03/17/2018 Last Documented On 4 2:02PM ; [facility] Medical History Includes: Medical History addressed during this encounter Description Last Updated History of arthritis 03/07/2024 Last Documented On 4 2:02PM ; [facility] History of History of Emphysema 03/07/20 24 Last Documented On 4 2:02PM ; [facility] History of Sleep Apnea 03/07/2024 Last Documented On 4 2:02PM ; [facility] Arthritic joint problems 03/17/2018 Last Documented On 4 2:02PM ; [facility] Family History Includes: Family History addressed during this encounter Description Last Updated Diabetes mellitus 03/07/2024 Last Documented On 4 2:02PM ; [facility], [facility] Family history of heart disease 03/07/20 24 Last Documented On 4 2:02PM ; [facility], [facility] Family history of osteoporosis 4 Last Documented On 4 2:02PM ; [facility], [facility] Fraternal history of diabetes mellitus 0 03/17/2018 Last Documented On 4 2:02PM ; [facility], [facility] Maternal history of family history of he art disease 03/17/2018 Last Documented On 4 2:02PM ; [facility], [facility] Maternal history of osteoporosis 018 Last Documented On 4 2:02PM ; [facility], [facility] Paternal aunt's history of rheumatoid ar thritis 03/17/2018 Last Documented On 4 2:02PM ; [facility], [facility] Review of Systems Includes: Review of Systems [...] Active Last Documented On 5 1:44PM ; [facility], [facility] Encounters Encounter Provider Location Date Check-In Time Check-Out Time Diagnosis Follow Up Raad Olivares [facility] 4 1:52PM 2:37PM Insurance Includes: Active Insurance Policies Plan Name Member ID Group # Subscriber Relationship Effect kar Dates 1 - Medicare Part B of [place] [id number] Antonia Pickens Self 2 - [employer] [place] [id number] Antonia Pickens Self 11/08/2017 - Unknown Clinical Notes Includes: Clinical Notes from this encounter * Progress note Date Encounter Last Documented by 08/01/2024 Follow Up Last documented on 08/01/2024; 2:37 PM, Raad Olivares PA-C; [facility], [facility] Active Problems & Conditions - Joint Pain [...] - Ondansetron HCl 4 MG Oral Tablet 4edw2-4x, 5 days, 0 refills - oxyCODONE HCl [...] Care Team - MAGO CORCORAN MD - DOORKEEPER
--- OUTSIDE RECORDS SUMMARY | 2025-09-17 08:52 | XMS_ITS | Encounter Summary ---
Author Organization [facility] Address [address] [place] [address] Care Team Providers Care Golf Course Patroller Name Role Phone Tariq Betancourt MD Primary Care Provider Encounter Details Date Type Department Care Team (Late st Contact Info) Description 07/06/2025 Results Follow-Up [facility] [address] [address] [address] [place] [address] José Miguel Abdi MD [address] [place] [address] Social History Tobacco Use Types Packs/Day Years [...] Description 06/24/2026 10:30 AM EDT Office Visit [facility] [address] [facility] [address] [place] [address] José Miguel Abdi MD [address] [facility] [address] [place] [address] documented as of this encounter Visit Diagnoses Not on filedocumented in this encounter Care Teams Golf Course Patroller Relationship Specialty Start Date End Date Tariq Betancourt MD [address] [facility] [address] [place] [address] PCP - General Family Medicine 03/06/25 documented as of this encounter
--- OUTSIDE RECORDS SUMMARY | 2025-09-17 08:52 | XMS_ITS | Encounter Summary ---
Author Organization [facility] Address [address] [place] [address] Care Team Providers Care Auto Bumper Straightener Name Role Phone Tariq Betancourt MD Primary Care Provider Encounter Details Date Type Department Care Team (Late st Contact Info) Description 06/12/2025 Telephone [facility] [address] [facility] [address] [place] [address] Mia Patiño APRN [address] [facility] [address] [place] [address] Social History Tobacco Use Types Packs/Day Years [...] Description 06/24/2026 10:30 AM EDT Office Visit [facility] [address] [facility] [address] [place] [address] José Miguel Abdi MD [address] [facility] [address] [place] [address] documented as of this encounter Visit Diagnoses Not on filedocumented in this encounter Care Teams Auto Bumper Straightener Relationship Specialty Start Date End Date Tariq Betancourt MD [address] [facility] [address] [place] [address] PCP - General Family Medicine 03/06/25 documented as of this encounter
--- OUTSIDE RECORDS SUMMARY | 2025-09-17 08:52 | XMS_ITS | Clinical Summary ---
Author Organization [employer] ([place], [place], [place], [place], [place]) Address [address] [place] [address] Care Team Providers Care Hydraulic Engineer Name Role Phone Ezequiel Houston MD Primary [...] the past 12 months, has t he Information Assurance, gas, oil, or water [employer] threatened to shut off services in your [...] your living situation today? I have a [facility] place to live 05/02/2024 Think about [...] Do you speak a language other than [place] at [facility]? No 05/02/2024 Do you want help with [...] years Completed 08/26/2023, 2016 Insurance [employer] [id number] [address] [place] [address] Advance Directives For more information, please contact: [phone] * Full Code (Latest Code Status on File) Date Activated Date Inactivated Comments 05/02/2024 8:35 PM 05/03/2024 7:01 PM -Attempt Res uscitation if person has no pulse and is not breathing. -If no pulse or not breathing attempt CPR/CODE. -Call Rapid Response if patient is in distress. Care Teams Hydraulic Engineer Relationship Specialty Start Date End Date Ezequiel Houston MD PCP - General Orthopedic Surgery 05/02/24
--- OUTSIDE RECORDS SUMMARY | 2025-09-17 08:52 | XMS_ITS | Clinical Summary ---
Author Organization [facility] Address [address] [place] [address] Phone Care Team Providers Care Hospital Cleaning Specialist Name Role Phone Rosemarie SINGH, Ezequiel Dubois Unavailable [phone] JEWELL SINGH, MAGO Unavailable [phone] Reason for Visit and Chief Complaint [facility] Problems Includes: Problems addressed [...] [facility] Plan of Treatment No [...] On 4 8:26AM By Hung Houston ; [facility] Current Medications (continue as prescribed) Aspirin 81 81 MG Oral Tablet Chewable 05/02/2024 Provider: Ezequiel ruby MD Diagnosis: once a day Last Documented On 4 8:31AM By Hung Houston ; [facility] traMADol HCl 50 MG Oral Tablet 05/01/2024 Provider: Ezequiel Houston MD Diagnosis: 1-2 po q 4-6h Last Documented On 4 2:09PM By Hung Houston ; [facility] oxyCODONE HCl 5 MG Oral Tablet 05/01/2024 Provider: Ezequiel Houston MD Diagnosis: 1-2 po q 4-6h Last Documented On 4 2:09PM By Hung Houston ; [facility] Tranexamic Acid 650 MG Oral Tablet 05/01/2024 Provid er: Ezequiel Houston MD Diagnosis: as directed TAKE 3 TABLETS O NE TIME A DAY BEGINNING THE EVENING OF SURGERY FOR FOUR DAYS Last Documented On 4 2:09PM By Hung Houston ; [facility] Ondansetron HCl 4 MG Oral Tablet 05/01/2024 Provider : Ezequiel Houston MD Diagnosis: [id number] Last Documented On 4 2:09PM By Hung Houston ; [facility] Meloxicam 15 MG Oral Tablet 05/01/2024 Provider: Ezequiel Houston MD Diagnosis: once a day Last Documented On 4 2:09PM By Hung Houston ; [facility] Colace 100 MG Oral Capsule 05/01/2024 Provider: Danna Houston MD Diagnosis: 1-2 tabs daily Last Documented On 4 2:09PM By Hung Houston ; [facility] Cefadroxil 500 MG Oral Capsule 05/01/2024 Provider: Ezequiel Houston MD Diagnosis: twice a day Last Documented On 4 2:09PM By Hung Houston ; [facility] Acetaminophen 500 MG Oral Tablet 05/01/2024 Provider : Ezequiel Houston MD Diagnosis: 2 three times a day Last Documented On 4 2:09PM By Hung Houston ; [facility] Albuterol Sulfate HFA 108 (9 0 Base) MCG/ACT Inhalation Aerosol Solution 03/14/2024 Provider: Diagnosis: Last Documented On 4 7:33AM By Abdirashid Mayfield ; [facility] DULoxetine HCl 30 MG Oral Capsule Delayed Release Spri nkle 03/14/2024 Provider: Diagnosis: Last Documented On 4 7:34AM By Abdirashid Mayfield ; [facility], [facility] Metoprolol Succinate ER 100 MG Oral Tablet Extended Release 24 Hour 03/14/2024 Provider: Diagnosis: Last Documented On 4 7:35AM By Abdirashid Mayfield ; [facility], [facility] Benazepril HCl 40 MG Oral Tablet 03/03/2024 Provider : MGAO CORCORAN MD Diagnosis: Last Documented On 4 9:22AM By Paula Lewis ; [facility], [facility] Fluticasone Propionate 50 MC G/ACT Nasal Suspension 03/02/2024 Provider: MAGO CORCORAN MD Diagnosis: Last Documented On 4 9:22AM By Paula Lewis ; [facility], [facility] Atorvastatin Calcium 40 MG Oral Tablet 03/02/2024 Pr ovider: MAGO CORCORAN MD Diagnosis: Last Documented On 4 9:22AM By Paula Lewis ; [facility], [facility] amLODIPine Besylate 10 MG Oral Tablet 03/02/2024 Pro vider: MAGO CORCORAN MD Diagnosis: Last Documented On 4 9:22AM By Paula Lewis ; [facility], [facility] Alendronate Sodium 70 MG Oral Tablet 03/02/2024 Prov ider: MAGO CORCORAN MD Diagnosis: Last Documented On 4 9:22AM By Paula Lewis ; [facility], [facility] Furosemide 40 MG Oral Tablet 03/02/2024 Provider: MAGO CORCORAN MD Diagnosis: Last Documented On 4 9:22AM By Paula Lewis ; [facility], [facility] Clopidogrel Bisulfate 75 MG Oral Tablet 03/02/2024 P rovider: MAGO CORCORAN MD Diagnosis: Last Documented On 4 9:22AM By Paula Lewis ; [facility], [facility] Medications Administered Includes: Administered Medications [...] Active Last Documented On 5 1:44PM ; [facility], [facility] Encounters Encounter Provider Location Date Check-In Time Check-Out Time Diagnosis [facility] Ezequiel Houston MD Surgery 05/02/20 24 1:45PM 11:59PM Insurance Includes: Active Insurance Policies Plan Name Member ID Group # Subscriber Relationship Effect kar Dates 1 - Medicare Part B [facility] [id number] Antonia Pickens Self 2 - [employer] [place] [id number] Antonia Pickens Self 11/08/2017 - Unknown Clinical Notes Includes: Clinical Notes from this encounter No Clinical Notes Recorded
--- OUTSIDE RECORDS SUMMARY | 2025-09-17 08:52 | XMS_ITS | Continuity of Care Document ---
Author Organization [place] - [facility]NT [facility] [place] [facility] Address [address] [place] [address] Care Team Providers Care Grievance And Appeals Coordinator Name Role Phone JEWELL, MAXIMILIANO Primary Care Provider JARED ROJAS Referring Provider LARS MEHTA Radiation Oncologist [phone] Assessment Encounter Date Assessment Date Assessment LastModified [...] g radiation to lung 2024 025 [facility] [employer], [address], 08/23/2025 23:33:01 Medication Orders prednison e 20 mg tablet 2024 025 JOHNNY [facility] 591, [address], [address], 09/03/2025 05:02:08 Patient TargetsNo targets recorded. Patient InstructionsNo instructions recorded. Reason for Referral None Reported. Results Created Date Observation Date Name Description Value Unit Range Abnormal Flag Note LastModifiedBy Organization Detail LastModifiedTime 07/30/2007/30/2025 PET-C T, skull base to mid-t high scan [facility] Name: NIHARIKA NARVAEZ FAY [facility] Evoz [facility] Phys: Sandra dickinson MD,[place] [address] : 1949 Age: 74 Sex: F Acct: [id number] Loc: G.PET PHONE #: [phone] Exam Date: 2024 Status : DEP CLI FAX #: Rad# [id number] Unit# [id number] Admit Date: 2024 EXAMS: CPT CODE: [id number] PET W/CT SKULL- MID THIGH 48066 EXAMIN ATION: SKULL BASE TO MID THIGH [...] nodes. PAGE 1 Signed Report (JEFF NUROLDAN) [facility] Name: NIHARIKA NARVAEZ FAY [address] [employer] [employer] Phys: Sandra dickinson MD,Carrie MC[place] [facility] [address] : 1949 Age: 74 Sex: F Acct: [id number] Loc: G.PET PHONE #: [phone] Exam Date: 2024 Status : DEP CLI FAX #: [phone] Rad# [id number] Unit# [id number] Admit Date: 2024 EXAMS: CPT CODE: [id number] 457 PET W/CT SKULL- MID THIGH 85038 ABDOME N AND PELVIS : Wide range of physio logic bowel uptake , limits evalua tion. Preston-b ladder artifa ct, limits evalua tion of FDG uptake to adjace nt soft tissue s. Within this limita tion, FDG uptake to the uterus cannot be exclud ed, very poorly evalua arabella on curren t examin ation. nIdiou m SUV of 11.3. Non-di agnost ic [...] MD PAGE 2 Signed Report (JEFF NUROLDAN) [facility] Name: NIHARIKA NARVAEZ FA [employer] [address] [employer] [address] Phys: Sandra dickinson MD,[facility] [place] [address] : 1949 Age: 74 Sex: F Acct: [id number] Loc: G.PET PHONE #: Exam Date: 2024 Status : DEP CLI FAX #: [phone] Rad# [id number] Unit# [id number] Admit Date: 2024 EXAMS: CPT CODE: [id number] 457 PET W/CT SKULL- MID THIGH 62299 CC: Peter Giordano M.D.; Lars dickinson MD Dictat ed Date/T nayeli: 2024 (1209) Techno logist : TIA CHOUDHURY BS, [employer] Transc ribed Date/T nayeli: 2024 (1209) Transc riptio nist: DR.IND Dumont onic Signat ure Date/T nayeli: 2024 (1209) Printe d Date/T nayeli: 2024 (1221) BATCH NO: N/A PAGE 3 Signed Report CC'ed Logic: Orderi ng Provid er: SANDRA SOUSA Attend ing Provid er: SANDRA SOUSA Referr ing Provid er: SANDRA SOUSA Consul ting Provid er: MILLY [facility] [address] [place], [address], 07/30/2025 13:12:15 07/30/20 25 07/30/2025 PET-C T, skull base to mid-t high scan [facility] Name: NIHARIKA NARVAE[address] Phys: Sandra dickinson MD,[place] [address] : 1949 Age: 74 Sex: F Acct: [id number] Loc: Dhaval.PET PHONE #: [phone] Exam Date: 2024 Status : DEP CLI FAX #: [phone] Rad# [id number] Unit# [id number] Admit Date: 2024 Report Has Been Amende d EXAMS: CPT CODE: [id number] 457 PET W/CT SKULL- MID THIGH 18572 Addend - 2024 SIGNED 2024 ADDEND UM: [id number] 457 PET/WC TSKMT ADDEND UM #1 Greate [...] NECK: PAGE 1 Signed Report (JEFF NUED) [facility] Name: NIHARIKA NARVAEZ FAAhmet [address] Phys: Sandra dickinson MD,[place] [address] : 1949 Age: 74 Sex: F Acct: [id number] Loc: G.PET PHONE #: [phone] Exam Date: 2024 Status : DEP CLI FAX #: Rad# [id number] Unit# [id number] Admit Date: 2024 Report Has Been Amende d EXAMS: CPT CODE: [id number] 457 PET W/CT SKULL- MID THIGH 89210 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 [...] CHRIS: PAGE 2 Signed Report (JEFF NUED) [facility] Name: NIHARIKA NARVAEZ FAY [address] [employer] Phys: Sandra dickinson [place] [address] : 1949 Age: 74 Sex: F Acct: [id number] Loc: G.PET PHONE #: Exam Date: 2024 Status : DEP CLI FAX #: [phone] Rad# [id number] Unit# [id number] Admit Date: 2024 Report Has Been Amende d EXAMS: CPT CODE: [id number] 457 PET W/CT SKULL- MID THIGH 58648 Intens e uptake to left upper lobe [...] r PAGE 3 Signed Report (JEFF NUED) [facility] Name: NIHARIKA NARVAEZ FAY [address] [employer] Phys: Sandra dickinson MD,[place] [address] : 1949 Age: 74 Sex: F Acct: [id number] Loc: G.PET PHONE #: [phone] Exam Date: 2024 Status : DEP CLI FAX #: [phone] Rad# [id number] Unit# [id number] Admit Date: 2024 Report Has Been Amende d EXAMS: CPT CODE: [id number] 457 PET W/CT SKULL- MID THIGH 48755 medici ne bone scan Septem 2024 FINDIN [...] 146. 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 [...] 2024 (1209) Techno logist : TIFFANY SHARP, [facility] Transc ribed Date/T nayeli: 2024 (1209) Transc riptio nist: DR.IND DEL VALLE Electr onic Signat ure Date/T nayeli: 2024 (1209) Printe d Date/T nayeli: 2024 (1506) BATCH NO: N/A PAGE 5 Signed Report CC'ed Logic: Orderi ng Provid er: SANDRA SOUSA Attend ing Provid er: SANDRA SOUSA Referr ing Provid er: SANDRA SOUSA Consul ting Provid er: MILLY Queen [address] , [place], [address], 07/31/2025 08:11:40 08/23/2008/23/2025 XR, chest , 2 view [facility] Name: NIHARIKA NARVAEZ FAY [address] [employer] Phys: Sandra dickinson [place] [address] : 1949 Age: 75 Sex: F Acct: [id number] Loc: G.RAD PHONE #: [phone] Exam Date: 2024 Status : REG CLI FAX #: Rad# [id number] Unit# [id number] Admit Date: 2024 EXAMS: CPT CODE: [id number] 698 CHEST 2 VIEWS 31449 CHEST RADIOG RAPHS, 2 VIEWS CLINIC AL [...] M.D.; Lars dickinson MD Dictat ed Date/T nyaeli: 2024 (221) Techno logist : CHIRAG Gonzales(R ) Transc ribed Date/T nayeli: 2024 (221) Transc riptio nist: DR.WIL ALLEN Electr onic Signat ure Date/T nayeli: 2024 (2214) Printe d Date/T nayeli: 2024 (2331) BATCH NO: N/A PAGE 1 Signed Report CC'ed Logic: Orderi ng Provid er: SANDRA SOUSA Attend ing Provid er: SANDRA SOUSA Referr ing Provid er: SANDRA SOUSA Consul ting Provid er: MILLY Queen [facility] [address] , [place], [address], 08/24/2025 09:07:54 Result Notes None recorded. Problems Name Problem SNOMED Code Status Onset Date Resolution Date Notes Provider Name and Address Organization Details Recorded Time Small cell carcinoma of lung 042409320 Active 025 ZOHRA Mistry [facility] [place] 5 08:29:03 Tobacco user 560545810 Active 025 ZOHRA Mistry [facility] [place] 5 11:32:20 Problem Notes None recorded. Medical Equipment None Reported. Allergies Allergen ID Allergen Name Allergen Category Reaction Reaction Severity Criticality Documentation Date Start Date Code Code System Note Provider Name and Address Organization Details Recorded Time 204802 cefdinir medicatio n confusion mild high 07/23/2025 44588 RxNorm ZOHRA Mistry [facility] [place] 5 09:11:23 496328 Boniva medicatio n other Not available high 07/23/2025 52914 4 RxNorm Cause s extre me fluct uatio n in BP ZOHRA Mistry [facility] & [place] 5 09:12:20 169691 Avelox medicatio n Not available Not available unabletoasse 07/23/2025 36585 6 RxNorm ZOHRA Mistry [facility] [place] 5 09:12:59 Medications Name Sig Start Date [...] 22 /min 171/70 mm[Hg] Mia العلي KRISTIN [facility] [place] 11:32:37 Social History Question Answer Notes LastModified by [facility] Details LastModified Time Tobacco Smoking Status Current Every Day Smoker Mia Dumont [facility], ZOHRA [facility] [place] 07/23/2025 11:30:06 What Was The Date Of [...] Been Provided? Yes Smoking Cessation Brochures From [facility] & [facility] Provided Information not available [...] ICD10 Code Diagnosis IMO Codes Diagnosis Note [id number] Lars Mehta MD [place] [address] 8 07/23/2025 10:12:44 07/23/2025 11:53:43 Small cell carcinoma of lung 821222104 C34.12 0208402046 Tobacco user 651081640 Z 72.0 6728011 [id number] Lars Mehta MD [place] [address] 8 07/26/2025 09:56:22 07/26/2025 11:19:24 Small cell carcinoma of lung 847532498 C34.12 8963096906 [id number] Lras Mehta MD [place] [address] 8 08/06/2025 12:45:36 08/06/2025 14:33:26 Small cell carcinoma of lung 714758640 C34.12 1311649924 6835000 Lars Mehta MD [place] [address] 8 08/07/2025 12:49:55 08/07/2025 13:36:59 Small cell carcinoma of lung 134883993 C34.12 5112477496 [id number] Lars Mehta MD [place] [address] 8 08/08/2025 12:53:10 08/08/2025 16:24:49 Small cell carcinoma of lung 720529324 C34.12 3769793404 [id number] MD HANNA Lozano [facility] [address] [place] [address] 08/09/2025 12:46:59 08/09/2025 15:49:21 Small cell carcinoma of lung 697140916 C34.12 5192764756 [id number] MD [facility] [address] [place] [address] 08/13/2025 11:29:50 08/13/2025 12:13:47 Small cell carcinoma of lung 807545479 C34.12 7308727166 Health Concerns Section Related Observation LastModified by Organization Detai ls LastModified Time None Recorded Concern Status LastModified by Organization Details LastModified Time None Recorded Payers Encounter Date Sequence Insurance Name Policy Number Policy Baxter Covered Member ID Baxter Member ID Guarantor Name 08/13/2025 1 [place] Niharika Farias Celio [id number] 5 Niharika Narvaez 08/13/2025 2 [facility] Niharika Farias Celio [id number] Niharika Narvaez Notes Date Note Type Note [...] on Plavix and aspirin. Lars Mehta MD [address] [place] [address],[address], [place], [address], [facility] - [facility] [place] 08/13/2025 11:40:35 OBGyn Episode No OBEpisode recorded.
--- OUTSIDE RECORDS SUMMARY | 2025-09-17 08:52 | XMS_ITS | Continuity of Care Document ---
Author Organization [place] - [facility] Address [address] [place] [address] Care Team Providers Care Pleater Name Role Phone MAXIMILIANO CORCORAN Primary Care Provider YESENIAJARED Referring Provider [phone] LARS MEHTA Radiation Oncologist Assessment No assessment [...] T, skull base to mid-t high scan [facility] Name: NIHARIKA NARVAEZ LARA [address] [employer] 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 Non-di agnost ic CT findin gs: [...] nodes. PAGE 1 Signed Report (JEFF NUED) [facility] Name: NIHARIKA NARVAEZ FAY [address] [email or web address] Phys: Sandra dickinson [place] [address] : 1949 Age: 74 Sex: F Acct: [id number] Loc: Dhaval.PET PHONE #: Exam Date: 2024 Status : DEP CLI FAX #: [phone] Rad# [id number] Unit# [id number] Admit Date: 2024 EXAMS: CPT CODE: [id number] 457 PET W/CT SKULL- MID THIGH 23928 ABDOME N AND PELVIS : Wide range [...] MD PAGE 2 Signed Report (JEFF NUED) [facility] al Medica l Ce Name: NIHARIKA NARVAEZ FAY [address] Phys: Sandra dickinson MD,Carrie [place] [address] : 1949 Age: 74 Sex: F Acct: [id number] Loc: G.PET PHONE #: Exam Date: 2024 Status : DEP CLI FAX #: [phone] Rad# [id number] Unit# [id number] Admit Date: 2024 EXAMS: CPT CODE: [id number] 457 PET W/CT SKULL- MID THIGH 81288 CC: Peter Giordano M.D.; Lars dickinson MD Dictat ed Date/T nayeli: 2024 (1209) Techno logist : TIFFANY SHARP, [employer] Transc ribed Date/T nayeli: 2024 (1209) Transc riptio nist: DR.IND DEL VALLE Electr onic Signat ure Date/T nayeli: 2024 (1209) Printe d Date/T nayeli: 2024 (1221) BATCH NO: N/A PAGE 3 Signed Report CC'ed Logic: Orderi ng Provid er: SANDRA SOUSA Attend ing Provid er: SANDRA SOUSA Referr ing Provid er: SANDRA SOUSA Consul ting Provid er: MILLY Queen [address] , [place], [address], 07/30/2025 13:12:15 07/30/20 25 07/30/2025 PET-C T, skull base to mid-t high scan [facility] Name: NIHARIKA NARVAEZ FAY [address] [employer] Phys: Sandra dickinson MD,[place] [address] : 1949 Age: 74 Sex: F Acct: [id number] Loc: G.PET PHONE #: [phone] Exam Date: 2024 Status : DEP CLI FAX #: [phone] Rad# [id number] Unit# [id number] Admit Date: 2024 Report Has Been Amende d EXAMS: CPT CODE: [id number] 457 PET W/CT SKULL- MID THIGH 88164 Addend um - 2024 SIGNED 2024 ADDEND UM: [id number] 457 PET/WC TSKMT ADDEND UM #1 Greate [...] NECK: PAGE 1 Signed Report (JEFF NUED) Line [facility] Name: NIHARIKA NARVAEZ FAY [address] [email or web address] Phys: Sandra dickinson 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 [...] CHRIS: PAGE 2 Signed Report (JEFF NUROLDAN) Line [facility] Ce Name: NIHARIKA NARVAEZ FAY [email or web address] Phys: Sandra [facility] [address] : 1949 Age: 74 Sex: F Acct: [id number] Loc: G.PET PHONE #: Exam Date: 2024 Status : DEP CLI FAX #: Rad# [id number] 71 Unit# [id number] Admit Date: 2024 Report Has Been Amende d EXAMS: CPT CODE: [id number] 457 PET W/CT SKULL- MID THIGH 61607 Intens e uptake to left upper lobe [...] r PAGE 3 Signed Report (JEFF NUED) [facility] Name: NIHARIKA NARVAEZ FAY [address] [employer] [facility] Phys: Sandra dickinson MD,[facility] [place] [address] : 1949 Age: 74 Sex: F Acct: [id number] Loc: G.PET PHONE #: Exam Date: 2024 Status : DEP CLI FAX #: [phone] Rad# [id number] Unit# [id number] Admit Date: 2024 Report Has Been Amende d EXAMS: CPT CODE: [id number] 457 PET W/CT SKULL- MID THIGH 54597 medici ne bone scan Septem 2024 FINDIN [...] 146. 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 [...] (1209) Techno logist : TIA CHOUDHURY, BS, [employer] Transc ribed Date/T nayeli: 2024 (1209) Transc riptio nist: DR.IND DEL VALLE Electr onic Signat ure Date/T nayeli: 2024 (1203) Printe d Date/T nayeli: 2024 (5378) BATCH NO: N/A PAGE 5 Signed Report CC'ed Logic: Orderi ng Provid er: SANDRA SOUSA Attend ing Provid er: SANDRA SOUSA Referr ing Provid er: SANDRA SOUSA Consul ting Provid er: MILLY Queen [address], [place], [address], 07/31/2025 08:11:40 08/23/2008/23/2025 XR, chest , 2 view [facility] Ce Name: NIHARIKA NARVAEZ FAY [facility] Medica [facility] [address] Phys: Sandra dickinson MD,Carrie [place] [address] : 1949 Age: 75 Sex: F Acct: [id number] Loc: G.RAD PHONE #: Exam Date: 2024 Status : REG CLI FAX #: Rad# [id number] Unit# [id number] Admit Date: 2024 EXAMS: CPT CODE: [id number] 698 CHEST 2 VIEWS 82445 CHEST RADIOG RAPHS, 2 VIEWS CLINIC AL [...] SOUSA Consul ting Provid er: MILLY [facility] [address], [place], [address], 08/24/2025 09:07:54 Result Notes None recorded. Problems Name Problem SNOMED Code Status Onset Date Resolution Date Notes Provider Name and Address Organization Details Recorded Time Small cell carcinoma of lung 047898976 Active 025 ZOHRA Mistry [facility] [place] 5 08:29:03 Tobacco user 770932628 Active 025 ZOHRA Mistry [facility] [place] 5 11:32:20 Problem Notes None recorded. Medical Equipment None Reported. Allergies Allergen ID Allergen Name Allergen Category Reaction Reaction Severity Criticality Documentation Date Start Date Code Code System Note Provider Name and Address Organization Details Recorded Time 771872 cefdinir medicatio n confusion mild high 07/23/2025 13640 RxNorm ZOHRA Mistry [facility] [place] 5 09:11:23 226498 Boniva medicatio n other Not available high 07/23/2025 94791 4 RxNorm Cause s extre me fluct uatio n in BP Mia sifuentes, ZOHRA FOSTER [facility] [place] 5 09:12:20 832380 Avelox medicatio n Not available Not available unabletoasse 07/23/2025 56369 6 RxNorm Mia sifuentes, ZOHRA - LPNT [facility] [place] 5 09:12:59 Medications [...] Mia العلي [facility] [place] 11:32:37 Social History Question Answer Notes LastModified by Organizat ion Details LastModified Time Tobacco Smoking Status Current Every Day Smoker Mia Dumont [facility] [place] 07/23/2025 11:30:06 What Was The [...] Been Provided? Yes Smoking Cessation Brochures From [facility] Dept Provided Information not available [...] ICD10 Code Diagnosis IMO Codes Diagnosis Note [id number] MD HANNA Lozano[address] [address] 07/23/2025 10:12:44 07/23/2025 11:53:43 Small cell carcinoma of lung 810850902 C34.12 9760808946 Tobacco user 943005394 Z 72.0 5040218 [id number] MD HANNA Lozano [address] [address] 07/26/2025 09:56:22 07/26/2025 11:19:24 Small cell carcinoma of lung 178569538 C34.12 1477276903 [id number] MD [facility] [address] [address] 08/06/2025 12:45:36 08/06/2025 14:33:26 Small cell carcinoma of lung 167587499 C34.12 8625735591 [id number] Lars Mehta MD [facility] [address] [place] [address] 08/07/2025 12:49:55 08/07/2025 13:36:59 Small cell carcinoma of lung 230106621 C34.12 6185591224 Health Concerns Section Related Observation LastModified by Organization Detai ls LastModified Time None Recorded Concern Status LastModified by Organization Details LastModified Time None Recorded Payers Encounter Date Sequence Insurance Name Policy Number Policy Baxter Covered Member ID Baxter Member ID Guarantor Name 08/07/2025 1 [place] Niharika Farias Celio [id number] 5 Niharika Narveaz 08/07/2025 2 [employer] Niharika Farias Celio [id number] Niharika Narvaez Notes Date Note Type Note [...] Plavix and aspirin. Lars Mehta MD [address] [facility],[address], [place], [address], [facility] [place] 08/13/2025 11:40:35 OBGyn Episode No OBEpisode recorded.
--- OUTSIDE RECORDS SUMMARY | 2025-09-17 08:53 | XMS_ITS | Clinical Summary ---
Author Organization [facility] Address [address] [place] [address] Phone Care Team Providers Care Commercial Lease Administrator Name Role Phone Rosemarie SINGH, Ezequiel Dubois Unavailable [phone] JEWELL SINGH, MAGO Unavailable [phone] Reason for Visit and Chief Complaint The Chief Complaint is: Left DEANNA Problems Includes: Problems addressed during this encounter and other active Problems All Visits Onset Date Resolved Date Provider Condition S tatus Joint Pain Hip Right 08/02/2025 Young Rajan Active Last Documented On 5 1:44PM ; [facility] Joint Pain Hip Bilateral 03/17/2018 Ezequiel Houston MD Active Last Documented On 8 3:22PM ; [facility] Plan of Treatment Fall Risk Assessment: [...] - Last Documented On 06/13/2024 4:22PM ; [facility] Overall patient is pleased with the progress, we discussed the importance of patients with increasing activities. Start physical therapy outpatient. We will plan for follow up 6 weeks - Last Documented On 06/13/2024 4:22PM ; [facility] Pending Tests Order Diagnosis Results Due Ordering Polly dwyer Lab Hemoglobin A1c 04/19/24 Young F Hen son PA-C Last Documented On 4 8:14AM ; [facility] Lab CBC With Differential/Platelet 04/19 Young Neil PA-C Last Documented On 4 8:14AM ; [facility] Lab Prothrombin Time (PT) 04/19/24 Ann-Marie Neil PA-C Last Documented On 4 8:14AM ; [facility] Lab PTT, Activated 04/19/24 Young cullen PA-C Last Documented On 4 8:14AM ; [facility] Lab Prealbumin 04/19/24 Young Neil PA-C Last Documented On 4 8:14AM ; [facility] Lab Fructosamine 04/19/24 Young Lorenzo n PA-C Last Documented On 4 8:14AM ; [facility] Lab MRSA by DA 04/19/24 Young Neil PA-C Last Documented On 4 8:14AM ; [facility] Lab Comp. Metabolic Panel (14) 04/19/24 Young Neil PA-C Last Documented On 4 8:14AM ; [facility] Instructions to patient Instructions for patient to see pcp for bp Last Documented On 4 2:07PM ; [facility] Intervention and counseling 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 of tobacco use Last Documented On 4 2:07PM ; [facility] Assessments Includes: Assessments from this encounter Findings 6 weeks status six weeks status post right DEANNA - Last Documented On 06/13/2024 4:22PM ; [facility] Instructions Includes: Instructions from this encounter Instructions to patient Instructions for patient to see pcp for bp Last Documented On 4 2:07PM ; [facility] Intervention and counseling 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 of tobacco use Last Documented On 4 2:07PM ; [facility] Medical Equipment - Implanted Devices Includes: Current Devices No Medical Equipment Recorded Medications Includes: Medications discussed during this encounter and other current Medications Current Medications (continue as prescribed) Aspirin 81 81 MG Oral Tablet Chewable 05/02/2024 Provider: Ezequiel ruby MD Diagnosis: once a day Last Documented On 4 8:31AM By Hung Houston ; [facility] traMADol HCl 50 MG Oral Tablet 05/01/2024 Provider: Ezequiel Houston MD Diagnosis: 1-2 po q 4-6h Last Documented On 4 2:09PM By Hung Houston ; [facility] oxyCODONE HCl 5 MG Oral Tablet 05/01/2024 Provider: Ezequiel Houston MD Diagnosis: 1-2 po q 4-6h Last Documented On 4 2:09PM By Hung Houston ; [facility] Tranexamic Acid 650 MG Oral Tablet 05/01/2024 Provid er: Ezequiel Houston MD Diagnosis: as directed TAKE 3 TABLETS O NE TIME A DAY BEGINNING THE EVENING OF SURGERY FOR FOUR DAYS Last Documented On 4 2:09PM By Hung Houston ; [facility] Ondansetron HCl 4 MG Oral Tablet 05/01/2024 Provider : Ezequiel Houston MD Diagnosis: [id number] Last Documented On 4 2:09PM By Hung Houston ; [facility] Meloxicam 15 MG Oral Tablet 05/01/2024 Provider: Ezequiel Houston MD Diagnosis: once a day Last Documented On 4 2:09PM By Hung Houston ; [facility] Colace 100 MG Oral Capsule 05/01/2024 Provider: Danna Houston MD Diagnosis: 1-2 tabs daily Last Documented On 4 2:09PM By Hung Houston ; [facility] Cefadroxil 500 MG Oral Capsule 05/01/2024 Provider: Ezequiel Houston MD Diagnosis: twice a day Last Documented On 4 2:09PM By Hung Houston ; [facility] Acetaminophen 500 MG Oral Tablet 05/01/2024 Provider : Ezequiel Houston MD Diagnosis: 2 three times a day Last Documented On 4 2:09PM By Hung Houston ; [facility] Albuterol Sulfate HFA 108 (9 0 Base) MCG/ACT Inhalation Aerosol Solution 03/14/2024 Provider: Diagnosis: Last Documented On 4 7:33AM By Abdirashid Mayfield ; [facility] DULoxetine HCl 30 MG Oral Capsule Delayed Release Spri nkle 03/14/2024 Provider: Diagnosis: Last Documented On 4 7:34AM By Abdirashid Mayfield ; [facility] Metoprolol Succinate ER 100 MG Oral Tablet Extended Release 24 Hour 03/14/2024 Provider: Diagnosis: Last Documented On 4 7:35AM By Abdirashid Mayfield ; [facility] Benazepril HCl 40 MG Oral Tablet 03/03/2024 Provider : MAGO CORCORAN MD Diagnosis: Last Documented On 4 9:22AM By Paula Lewis ; [facility] Fluticasone Propionate 50 MC G/ACT Nasal Suspension 03/02/2024 Provider: MAGO CORCORAN MD Diagnosis: Last Documented On 4 9:22AM By Paula Lewis ; [facility] Atorvastatin Calcium 40 MG Oral Tablet 03/02/2024 Pr ovider: MAGO CORCORAN MD Diagnosis: Last Documented On 4 9:22AM By Paula Lewis ; [facility] amLODIPine Besylate 10 MG Oral Tablet 03/02/2024 Pro vider: MAGO CORCORAN MD Diagnosis: Last Documented On 4 9:22AM By Paula Lewis ; [facility] Alendronate Sodium 70 MG Oral Tablet 03/02/2024 Prov ider: MAGO CORCORAN MD Diagnosis: Last Documented On 4 9:22AM By Paula Lewis ; [facility] Furosemide 40 MG Oral Tablet 03/02/2024 Provider: MAGO CORCORAN MD Diagnosis: Last Documented On 4 9:22AM By Paula Lewis ; [facility] Clopidogrel Bisulfate 75 MG Oral Tablet 03/02/2024 P rovider: MAGO CORCORAN MD Diagnosis: Last Documented On 4 9:22AM By Paula Lewis ; [facility] Past Medications on file TraMADol HCl 50MG Oral Tablet 03/22/2018 - 03/27/2018 Provider: Ezequiel ravi MD Diagnosis: 2 Tablets every 6 hours PRN pain for surgery DO NOT FILL TILL 18 Last Documented On 8 10:34AM By Bella Deleon ; [facility] OxyCODONE HCl 5MG Oral Tablet 03/22/2018 - 03/24/2018 Provider: Ezequiel ravi MD Diagnosis: 1-2 pills every 4-6 hours [place] N pain for surgery DO NOT FILL TILL 18 Last Documented On 8 10:33AM By Bella Deleon ; [facility] Colace 100MG Oral Capsule 03/22/2018 - 06/20/2018 Provider: Ezequiel ravi MD Diagnosis: 1-2 tabs daily for surgery * *DO NOT FILL TILL 03-28-18 Last Documented On 8 10:40AM By Bella Deleon ; [facility] Acetaminophen 500MG Oral Tablet 03/22/2018 - 03/30/2018 Provider: Ezequiel Houston MD Diagnosis: 2 three times a day for surg tiffanie DO NOT FILL TILL 03-28-18 Last Documented On 8 10:40AM By Bella Deleon ; [facility] Mupirocin 2% External Ointment 03/21/2018 - 03/26/2018 Provider: Ezequiel ravi MD Diagnosis: Apply to nostrils 3 time a d ay 5 days prior to surgery. Last Documented On 8 10:49AM By Jaja Rutledge ; [facility] Medications Administered Includes: Administered Medications from [...] 06/13/2024 Last Documented On 4 4:22PM ; [facility] Not using drugs 06/13/2024 Last Documented On 4 4:22PM ; [facility] Alcohol use 03/07/2024 Last Documented On 4 2:07PM ; [facility] Caffeine use 03/07/2024 Last Documented On 4 2:07PM ; [facility] Not exercising regularly 03/07/2024 Last Documented On 4 2:07PM ; [facility] Yes, current smoker. 03/07/2024 Last Documented On 4 2:07PM ; [facility] Tobacco use 03/07/2024 Last Documented On 4 2:07PM ; [facility] Smoking status Current some day smoker 0 03/17/2018 Last Documented On 4 2:07PM ; [facility] Current smoker 03/17/2018 Last Documented On 4 2:07PM ; [facility] Procedures and Surgical History Includes: Procedures from this encounter Procedures Code Diagnosis Performing Provider Service L ocation Service Date history of orthopedic options: physical therapy Last Documented On 4 2:07PM ; [facility] 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 Last Documented On 4 2:07PM ; [facility] use of tobacco assessment performed 1000F Last Documented On 4 2:07PM ; [facility] patient screened for future fall risk: documentation of any fall with injury in past year 1100F Last Documented On 4 2:07PM ; [facility] review of medications documented 1160F Last Documented On 4 2:07PM ; [facility] Clinical summary provided to patient Last Documented On 4 2:07PM ; [facility] an X-ray was performed 15327 Last Documented On 4 2:07PM ; [facility] an MRI was performed 67596 Last Documented On 4 2:07PM ; [facility] Surgical History Last Updated History of Previous Fractures 03/07/2024 Last Documented On 4 2:07PM ; [facility] History of total hip replacement 024 Last Documented On 4 2:07PM ; [facility] History of back surgery 03/17/2018 Last Documented On 4 2:07PM ; [facility] Medical History Includes: Medical History addressed during this encounter Description Last Updated History of arthritis 03/07/2024 Last Documented On 4 2:07PM ; [facility] History of History of Emphysema 03/07/20 24 Last Documented On 4 2:07PM ; [facility] History of Sleep Apnea 03/07/2024 Last Documented On 4 2:07PM ; [facility] Arthritic joint problems 03/17/2018 Last Documented On 4 2:07PM ; [facility] Family History Includes: Family History addressed during this encounter Description Last Updated Diabetes mellitus 03/07/2024 Last Documented On 4 2:07PM ; [facility] Family history of heart disease 03/07/20 24 Last Documented On 4 2:07PM ; [facility] Family history of osteoporosis 4 Last Documented On 4 2:07PM ; [facility] Fraternal history of diabetes mellitus 0 03/17/2018 Last Documented On 4 2:07PM ; [facility] Maternal history of family history of he art disease 03/17/2018 Last Documented On 4 2:07PM ; [facility] Maternal history of osteoporosis 018 Last Documented On 4 2:07PM ; [facility] Paternal aunt's history of rheumatoid ar thritis 03/17/2018 Last Documented On 4 2:07PM ; [facility] Review of Systems Includes: Review of [...] Active Last Documented On 5 1:44PM ; [facility] Encounters Encounter Provider Location Date Check-In Time Check- Out Time Diagnosis Post Op Young Neil PA-C [facility] 4 1:58PM 2:38PM Insurance Includes: Active Insurance Policies Plan Name Member ID Group # Subscriber Relationship Effect kar Dates 1 - Medicare Part B [facility] [id number] Antonia Pickens Self 2 - [facility] [id number] Antonia Pickens Self 11/08/2017 - Unknown Clinical Notes Includes: Clinical Notes from this encounter * Progress note Date Encounter Last Documented by 06/13/2024 Post Op Last documented on 06/13/2024; 4:22 PM, Young Neil PA-C; [facility] Active Problems & Conditions - Joint [...] - Ondansetron HCl 4 MG Oral Tablet 3adg4-6i, 5 days, 0 refills - oxyCODONE HCl [...] Care Team - MAGO CORCORAN MD - MOLDING MACHINE OPERATOR HELPER
--- OUTSIDE RECORDS SUMMARY | 2025-09-17 08:53 | XMS_ITS | Encounter Summary ---
Author Organization Healthcare Address [address] [place] [address] Care Team Providers Care Channel Program Manager Name Role Phone Tariq Betancourt MD Primary Care Provider [phone] Stan Leroy MD Unavailable [phone] Encounter Details Date Type Department Care Team (Late st Contact Info) Description 08/30/2025 Orders Only [facility] [address] [place] [address] Stan Leroy MD [address] [address] Social History Tobacco Use Types [...] GFR (08/30/2025 3:53 PM EDT) Blood Result [facility] Stan Leroy MD LAB BLOOD ORDERABLES Final Res ult documented in this encounter Visit Diagnoses Not on filedocumented in this encounter Care Teams Channel Program Manager Relationship Specialty Start Date End Date Tariq Betancourt MD [address] [facility] [address] [place] [address] PCP - General 03/21/21 Stan Leroy MD [address] [place] [address] Medical Oncologist Hematology and Oncology 04/10/24 BAYLEE Henao [address] [place], [place] [id number] Referring Physician Orthopaedic Surgery 04/07/24 documented as of this encounter
--- OUTSIDE RECORDS SUMMARY | 2025-09-17 08:53 | XMS_ITS | Clinical Summary ---
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 [employer] Name Role Phone Tariq Betancourt MD Primary [...] - 07/06/2025 11:59 PM EDT Hospital Encounter [facility] [address] [facility] [address] [place] [address] José Miguel Abdi MD Dyspnea on exertion; Dyslipidemia; Peripheral arterial disease; Other disorders of arteries, arterioles and capillaries in diseases classified elsewhere Discharge Disposition: Home or Self Care 07/06/2025 Results Follow-Up [facility] [address] [facility] [address] [place] [address] José Miguel Abdi MD 07/06/2025 Travel 06/18/2025 10:00 AM EDT Office Visit [facility] [address] [facility] [address] [place] [address] José Miguel Abdi MD Peripheral arterial disease [...] Description 06/24/2026 10:30 AM EDT Office Visit [facility] [address] [place] [address] José Miguel Abdi MD [address] [place] [address] Health Maintenance Due Date Last [...] esult from Last [address] [place] [id number] MEDICARE A & B [facility] [place] [address] Care Teams Counter Clerk [employer] Relationship Specialty Start Date End Date Tariq Betancourt MD [facility] [address] [facility] [address] [place] [address] PCP - General Family Medicine 03/06/25
--- OUTSIDE RECORDS SUMMARY | 2025-09-17 08:54 | XMS_ITS ---
Author Organization [facility] , [facility] Address [address] [address] Phone Care Team Providers Care Procurement Specialist Name Role Phone Rosemarie SINGH, Troy Dubois Unavailable + [phone] JEWELL SINGH, MAGO Unavailable [phone] Problems Includes: Active, inactive, and resolved Problems All Visits Onset Date Resolved Date Provider Condition S tatus Joint Pain Hip Right 08/02/2025 Young Rajan Active Last Documented On 5 1:44PM ; [facility] Joint Pain Hip Bilateral 03/17/2018 Troy Houston MD Active Last Documented On 8 3:22PM ; [facility] Plan of Treatment Findings Encounter Date Patient screened for future fall risk: documentation of any fall with injury in past year Follow Up with Raad Olivares PA-C 08/01/2024 Last Documented On 4 2:37PM ; [facility] Pending Tests Order Diagnosis Results Due Ordering Polly dwyer Lab Hemoglobin A1c 04/19/24 Young cullen PA-C Last Documented On 4 8:14AM ; [facility] Lab CBC With Differential/Platelet 04/19 Young Neil PA-C Last Documented On 4 8:14AM ; [facility] Lab Prothrombin Time (PT) 04/19/24 Ann-Marie Neil PA-C Last Documented On 4 8:14AM ; [facility] Lab PTT, Activated 04/19/24 Young cullen PA-C Last Documented On 4 8:14AM ; [facility] Lab Prealbumin 04/19/24 Young Dinora Rashaad BEACH-C Last Documented On 4 8:14AM ; [facility] Lab Fructosamine 04/19/24 Young Farias Maura n PA-C Last Documented On 4 8:14AM ; [facility] Lab MRSA by DA 04/19/24 Young Dinora Rashaad PA-C Last Documented On 4 8:14AM ; [facility] Lab Comp. Metabolic [...] use Last Documented On 5 1:44PM ; [facility] Instructions for patient [...] bp Last Documented On 8 2:20PM ; [facility] Medical Equipment - Implanted Devices Includes: Current and historical Devices No Medical Equipment Recorded Medications Includes: Current and historical Medications Current Medications (continue as prescribed) Aspirin 81 81 MG Oral Tablet Chewable 05/02/2024 Provider: Troy ruby MD Diagnosis: once a day Last Documented On 4 8:31AM By Hung Houston ; [facility], [facility] traMADol HCl 50 MG Oral Tablet 05/01/2024 Provider: Troy Houston MD Diagnosis: 1-2 po q 4-6h Last Documented On 4 2:09PM By Hung Houston ; [facility], [facility] oxyCODONE HCl 5 MG Oral Tablet 05/01/2024 Provider: Troy Houston MD Diagnosis: 1-2 po q 4-6h Last Documented On 4 2:09PM By Hung Houston ; [facility], [facility] Tranexamic Acid 650 MG Oral Tablet 05/01/2024 Provid er: Troy Houston MD Diagnosis: as directed TAKE 3 TABLETS O NE TIME A DAY BEGINNING THE EVENING OF SURGERY FOR FOUR DAYS Last Documented On 4 2:09PM By Hung Houston ; [facility], [facility] Ondansetron HCl 4 MG Oral Tablet 05/01/2024 Provider : Troy Houston MD Diagnosis: 2wic4-4o Last Documented On 4 2:09PM By Hung Houston ; [facility], [facility] Meloxicam 15 MG Oral Tablet 05/01/2024 Provider: Troy Houston MD Diagnosis: once a day Last Documented On 4 2:09PM By Hung Houston ; [facility], [facility] Colace 100 MG Oral Capsule 05/01/2024 Provider: Danna Houston MD Diagnosis: 1-2 tabs daily Last Documented On 4 2:09PM By Hung Houston ; [facility] Cefadroxil 500 MG Oral Capsule 05/01/2024 Provider: Troy Houston MD Diagnosis: twice a day Last Documented On 4 2:09PM By Hung Houston ; [facility], [facility] Acetaminophen 500 MG Oral Tablet 05/01/2024 Provider : Troy Houston MD Diagnosis: 2 three times a day Last Documented On 4 2:09PM By Hung Houston ; [facility], [facility] Albuterol Sulfate HFA 108 (9 0 Base) MCG/ACT Inhalation Aerosol Solution 03/14/2024 Provider: Diagnosis: Last Documented On 4 7:33AM By Abdirashid Mayfield ; [facility], [facility] DULoxetine HCl 30 MG Oral Capsule Delayed Release Spri nkle 03/14/2024 Provider: Diagnosis: Last Documented On 4 7:34AM By Abdirashid Mayfield ; [facility], [facility] Metoprolol Succinate ER 100 MG Oral Tablet Extended Release 24 Hour 03/14/2024 Provider: Diagnosis: Last Documented On 4 7:35AM By Abdirashid Mayfield ; [facility], [facility] Benazepril HCl 40 MG Oral Tablet 03/03/2024 Provider : MAGO CORCORAN MD Diagnosis: Last Documented On 4 9:22AM By Paula Lewis ; [facility], [facility] Fluticasone Propionate 50 MC G/ACT Nasal Suspension 03/02/2024 Provider: MAGO CORCORAN MD Diagnosis: Last Documented On 4 9:22AM By Paula Lewis ; [facility], [facility] Atorvastatin Calcium 40 MG Oral Tablet 03/02/2024 Pr ovider: MAGO CORCORAN MD Diagnosis: Last Documented On 4 9:22AM By Paula Lewis ; [facility], [facility] amLODIPine Besylate 10 MG Oral Tablet 03/02/2024 Pro vider: MAGO CORCORAN MD Diagnosis: Last Documented On 4 9:22AM By Paula Lewis ; [facility] Alendronate Sodium 70 MG Oral Tablet 03/02/2024 Prov ider: MAGO CORCORAN MD Diagnosis: Last Documented On 4 9:22AM By Paula Lewis ; [facility] Furosemide 40 MG Oral Tablet 03/02/2024 Provider: MAGO CORCORAN MD Diagnosis: Last Documented On 4 9:22AM By Paula Lewis ; [facility], [facility] Clopidogrel Bisulfate 75 MG Oral Tablet 03/02/2024 P rovider: MAGO CORCORAN MD Diagnosis: Last Documented On 4 9:22AM By Paula Lewis ; [facility], [facility] Past Medications on file Aspirin 81 81 MG Oral Tablet Chewable 05/01/2024 - 05/02/2024 Provider: Troy ravi MD Diagnosis: twice a day Last Documented On 4 8:26AM By Hung Houston ; [facility], [facility] Nabumetone 500 MG Oral Tablet 12/18/2023 - 03/14/2024 Provider: Raul Shannon Md Diagnosis: Last Documented On 4 7:32AM By Abdirashid Mayfield ; [facility], [facility] Lisinopril 10MG Oral Tablet 05/20/2018 - 03/07/2024 Pr ovider: MAGO CORCORAN MD Diagnosis: Last Documented On 4 9:21AM By Paula Lewis ; [facility], [facility] GNP Vitamin D 400UNIT Oral Tablet Chewable 05/12/2018 - 03/07/2024 Provider: Diagnosis: Last Documented On 4 9:22AM By Paula Lewis ; [facility] TraMADol HCl 50MG [...] On 8 10:34AM By Bella Deleon ; [facility] OxyCODONE HCl 5MG Oral Tablet 03/22/2018 - 03/24/2018 Provider: Troy ravi MD Diagnosis: 1-2 pills every 4-6 hours TX N pain for surgery DO NOT FILL TILL 5--18 Last Documented On 8 10:33AM By Bella Deleon ; [facility] Colace 100MG Oral Capsule 03/22/2018 - 06/20/2018 Provider: Troy ravi MD Diagnosis: 1-2 tabs daily for surgery * *DO NOT FILL TILL 5-18 Last Documented On 8 10:40AM By Bella Deleon ; [facility] Acetaminophen 500MG Oral Tablet 03/22/2018 - 03/30/2018 Provider: Troy Houston MD Diagnosis: 2 three times a day for surg tiffanie DO NOT FILL TILL 5--18 Last Documented On 8 10:40AM By Bella Deleon ; [facility] Mupirocin 2% External Ointment 03/21/2018 - 03/07/2024 Provider: TROY FRANCOIS MD Diagnosis: Last Documented On 4 9:22AM By Paula Lewis ; [facility] Mupirocin 2% External Ointment 03/21/2018 - 03/26/2018 Provider: Troy ravi MD Diagnosis: Apply to nostrils 3 time a d ay 5 days prior to surgery. Last Documented On 8 10:49AM By Jaja Rutledge ; [facility] Amlodipine Besy-Benazepril H Cl 5-20MG Oral Capsule 02/15/2018 - 06/23/2018 Provider: MAGO Queen Diagnosis: Last Documented On 8 2:16PM By Elisha Flores ; [facility], [facility] Atorvastatin Calcium 40MG Or al Tablet 02/15/2018 - 03/07/2024 Provider: MAGO Queen Diagnosis: Last Documented On 4 9:22AM By Paula Lewis ; [facility], [facility] Medications Administered Includes: Administered Medications in patient's chart No Administered Medications Recorded Vital Signs Includes: Vital Signs from 09/17/2024 through 09/17/2025 Vital Name 08/02/2025 01:44P Height (in) 62 Weight (lb) 115 Body Mass Index 21 Body Surface Area 1.5 Note: ab Last Documented: On 08/02/2025 1:59PM ; [facility], [facility] Results Includes: Results from 09/17/2024 through 09/17/2025 No Results Recorded For Specified Dates History of Present Illness History of Present Illness not supported for this document type No History of Present Illness Recorded Social History Description Last Updated No recent change in diet 08/02/2025 Last Documented On 5 2:10PM ; [facility] Not using drugs 08/02/2025 Last Documented On 5 2:10PM ; [facility] Alcohol use 03/07/2024 Last Documented On 4 9:37AM ; [facility] Caffeine use 03/07/2024 Last Documented On 4 9:37AM ; [facility] Not exercising regularly 03/07/2024 Last Documented On 4 9:37AM ; [facility], [facility] Yes, current smoker. 03/07/2024 Last Documented On 4 9:37AM ; [facility], [facility] Tobacco use 03/07/2024 Last Documented On 4 9:37AM ; [facility], [facility] Smoking status Current some day smoker 0 03/17/2018 Last Documented On 8 5:58PM ; [facility], [facility] Current smoker 03/17/2018 Last Documented On 8 5:58PM ; [facility], [facility] Procedures and Surgical History Includes: Procedures from 09/17/2024 through 09/17/2025 Procedures Code Diagnosis Performing Provider Service Location Service Date PELVIS w/ 2-3 VIEW HIP (RIGHT) 34914 Unilateral primary osteoarthritis, right hip, Presence of right artificial hip joint Young Neil PA-C [facility] 08/02/2025 Last Documented On 5 2:46PM ; [facility], [facility] Surgical History Last Updated History of Previous Fractures 03/07/2024 Last Documented On 4 9:37AM ; [facility], [facility] History of total hip replacement 024 Last Documented On 4 9:37AM ; [facility], [facility] History of back surgery 03/17/2018 Last Documented On 8 5:58PM ; [facility], [facility] Medical History Includes: Medical History in patient's chart Description Last Updated History of arthritis 03/07/2024 Last Documented On 4 9:37AM ; [facility], [facility] History of History of Emphysema 03/07/20 24 Last Documented On 4 9:37AM ; [facility], [facility] History of Sleep Apnea 03/07/2024 Last Documented On 4 9:37AM ; [facility], [facility] Arthritic joint problems 03/17/2018 Last Documented On 8 5:58PM ; [facility], [facility] Family History Includes: Family History in patient's chart Description Last Updated Diabetes mellitus 03/07/2024 Last Documented On 4 9:37AM ; [facility], [facility] Family history of heart disease 03/07/20 24 Last Documented On 4 9:37AM ; [facility] Family history of osteoporosis 4 Last Documented On 4 9:37AM ; [facility], [facility] Fraternal history of diabetes mellitus 0 03/17/2018 Last Documented On 8 5:58PM ; [facility], [facility] Maternal history of family history of he art disease 03/17/2018 Last Documented On 8 5:58PM ; [facility], [facility] Maternal history of osteoporosis 018 Last Documented On 8 5:58PM ; [facility], [facility] Paternal aunt's history of rheumatoid ar thritis 03/17/2018 Last Documented On 8 5:58PM ; [facility], [facility] Review of Systems Review of Systems [...] Last Documented On 5 1:44PM ; [facility], [facility] Encounters Includes: Encounters from 09/17/2024 through 09/17/2025 Encounter Provider Location Date Check-In Time Check- Out Time Diagnosis Follow Up Young Neil PA-C [facility] 5 1:34PM 2:08PM Insurance Includes: Active Insurance Policies Plan Name Member ID Group # Subscriber Relationship Effect kar Dates 1 - Medicare Part B [facility] [id number] Antonia Pickens Self 2 - [facility] [id number] Antonia Pickens Self 11/08/2017 - Unknown Clinical Notes Includes: Signed Clinical Notes starting from 10/22/2022 * Progress note Date Encounter Last Documented by 08/02/2025 Follow Up Last documented on 08/02/2025; 2:10 PM, Young Neil PA-C; [facility], [facility] Active Problems & Conditions - Joint [...] - Ondansetron HCl 4 MG Oral Tablet 0urb6-8c, 5 days, 0 refills - oxyCODONE HCl [...] Care Team - MAGO CORCORAN MD - COMPOUND FINISHER
--- NOTE | 2025-09-17 09:00 | CA_ITS ---
APPROVED REPORT EXAM: Comprehensive 2D, Doppler, and color-flow Echocardiogram Case Managers: Bethanie Yoder CRT Ht: 5 ft 2 in Wt: 120lbs BSA: 1.54 BP: 131/56 mmHg Indications: COPD, Shortness of Breath, CAD, lung CA, smoker, increased troponin 2D Dimensions LA Volume 37.30 mL LA Volume Index 23.60 mL/m2 (M/F) 16-34 M-Mode Dimensions RVDd 2.69 cm (0.9-2.6) LA Diam 3.24 cm (1.9-4.0) LVDd 3.60 cm (3.5-5.7) LVDs 2.63 cm (3.5-5.7) IVSd 1.10 cm (0.6-1.1) PWd 1.03 cm (0.6-1.1) EF (Teich) 53.50% FS 26.90% EDV (Teich) 54.40 mL TAPSE 1.66 (<1.7) ESV (Teich) 25.30 mL LV Diastology E Decel Time 150 (160-240 msec) E/A Ratio 0.53 MED A' 12.70 cm/s LAT A' 11.10 cm/s Aortic Valve AO Peak GR. 8.00 mmHg Mitral Valve MV E Max Demetrio. 43.0 (40-130 cm/s) MV A Velocity 82.0 (40-130 cm/s) E/A Ratio 0.53 MV PHT 44.0 ms Pulmonary Valve PV Peak Velocity 101.0 (50-150 cm/s) Tricuspid Valve TR P. Velocity 208.00 cm/s RAP Estimate 10.00 mmHg RVSP 27.30 mmHg Left Ventricle The left ventricle is normal size. Left ventricular systolic function is low normal. There is increased left ventricular wall thickness. There is near akinesis of the LV apical wall. Transmitral Doppler flow pattern suggests impaired LV relaxation. LVEF is 50% Right Ventricle The right ventricle is normal size. The right ventricular systolic function is normal. Atria The left atrium size is normal. The right atrium size is normal. There is no color Doppler evidence of interatrial shunt. Aortic Valve The aortic valve is mildly thickened. There is no hemodynamically significant aortic valvular stenosis. Trace aortic regurgitation is present. Mitral Valve The mitral valve is mildly thickened. No evidence of mitral valve stenosis. Trace mitral regurgitation is present. Tricuspid Valve The tricuspid valve leaflets are thin and pliable. Trace tricuspid regurgitation. There is insufficient TR jet to estimate RVSP. Pulmonic Valve The pulmonary valve is grossly normal in structure. Trace pulmonic valve regurgitation is present. Great Vessels The aortic root is normal in size. IVC is normal in size and collapses >50% with inspiration. Pericardium There is no pericardial effusion. Other Information Study Quality: Fair Conclusion Low-normal LV systolic function (LVEF 50%). There is near akinesis of the LV apical wall. No significant valvular stenosis or regurgitation. Electronically signed by : Lynsey Cao MD 09/17/2025 12:19:26
[2025-09-17] MEDS: FUROSEMIDE 40 MG TABLET PO (09:09)
[2025-09-17] MEDS: POLYETHYLENE GLYCOL 3350 17 GM PACKET PO (09:09)
[2025-09-17] MEDS: METOPROLOL SUCCINATE XL 100MG TABLET 100 MG PO (09:10)
[2025-09-17] MEDS: CLOPIDOGREL 75MG TAB 75 MG PO (09:10)
[2025-09-17] MEDS: POTASSIUM CHLORIDE 20MEQ TAB 40 MEQ PO ×2 (09:10→12:15)
[2025-09-17] MEDS: PIPERCILLIN/TAZO 3.375 GM in 0.9 % SODIUM CHLORIDE 50 ML IV ×2 (09:11→16:48)
--- NOTE | 2025-09-17 09:50 | EXP.PULM.CON ---
History of Present Illness History of present illness: Ms. Murillo is a 75-year-old female greater than [id number] smoking history COPD, CAD sleep apnea on CPAP small cell lung cancer hypertension renal artery stenosis presented to the ER with worsening respiratory distress and pulmonary was called for further evaluation and management. Patient recently completed radiation therapy for small cell lung cancer. [facility] Disclaimer: The information contained in this section may have been updated after the patient was seen, as this information can be updated by other users. Medical History (Updated 09/17/25 @ 12:06 by Bartolome Brannon MD) COPD exacerbation Fracture of left lower extremity History of femur fracture CAD (coronary artery disease) Abnormal CT scan of lung Smoking greater than 30 pack years Lung nodule COPD mixed type Sleep apnea COPD (chronic obstructive pulmonary disease) Menopause Osteoporosis Osteoarthritis Carpal tunnel syndrome History of cataract Hyperlipidemia Hypertension Tobacco abuse Renal artery stenosis Edema of left lower extremity Pain in left lower leg Claudication Surgical History History of back surgery History of tubal ligation History of intravascular stent placement History of right hip replacement History of colonoscopy History of carpal tunnel release History of left hip replacement Family History Brother Family history of myocardial infarction Family history of diabetes mellitus type II Mother Family history of myocardial infarction Other Family history of stroke Social History (Updated 09/15/25 @ 01:01 by Lily Stone RN) Smoking Status: Former smoker tobacco type: cigarettes packs per day: 1 smoking status start date: 1 pack per week alcohol intake: never substance use type: denies use current occupational status: retired Travel in the last 8 weeks?: None household members: spouse housing: house current occupational exposures/hazards: No caffeine: No Have you lived/traveled outside US in past 30 days?: No Contact w/someone who lives/traveled outside US past 30 days?: No Exposure to someone with infectious disease in past 14 days?: No Do you have a fever (greater than 100.4 F or 38 C)?: No Have you tested positive for COVID-19?: No Exposed to someone with COVID-19 in past 14 days?: No Do you have a sore throat?: No Do you have a cough?: No Do you have any weakness?: No Do you have any diarrhea?: No Are you experiencing any unusual bleeding?: No Do you have any muscle aches/pain?: No Do you have any abdominal pain?: No Are you experiencing loss of taste or smell?: No Review of Systems Constitutional Constitutional: Reports anorexia, Reports body ache(s), Reports fatigue, Reports poor appetite and Reports weakness Eyes Eyes: Denies eye discharge, Denies dry eyes, Denies irritation and Denies itchy eyes ENT Ears, Nose, Mouth, and Throat: Denies epistaxis, Denies facial pain, Denies lip swelling and Denies throat swelling *Cardiovascular Cardiovascular: Reports dyspnea and Reports dyspnea on exertion *Respiratory Respiratory: Denies change in phlegm color, Reports chest congestion, Reports cough, Reports dyspnea, Reports dyspnea on exertion, Denies excessive phlegm production, Denies hemoptysis, Denies pain on inspiration, Denies pain with cough and Denies wheezing *Gastrointestinal Gastrointestinal: Denies abdominal pain, Denies belching and Denies cramping *Musculoskeletal Musculoskeletal: Reports back pain, Reports myalgias and Reports other (No small joint swelling or Pain) *Neurologic Neurologic: Reports system reviewed and no additional complaints, except as documented and Reports weakness Psychiatric Psychiatric: Denies homicidal ideation and Denies suicidal ideation Endocrine Endocrine: Reports fatigue and Denies heat intolerance Hematologic/Lymphatic Hematologic/Lymphatic: Denies easy bleeding and Denies lymphadenopathy Allergic/Immunologic Allergic/Immunologic: Denies itchy eyes, Denies lip swelling, Denies throat swelling and Denies wheezing Pulmonology Exam Inpatient Vital signs and Labs for Last 24 Hours: Temp Pulse Resp BP Pulse Ox O2 Del Method O2 Flow Rate 98 F 87 18 138/67 93 L BiPAP 3 09/17/25 08:00 09/17/25 08:00 09/17/25 08:00 09/17/25 08:00 09/17/25 08:00 09/17/25 08:00 09/16/25 21:00 FiO2 35 09/17/25 06:51 Laboratory Results - last 24 hr 09/16/25 06:50: Ferritin 26.3 D, C-Reactive Protein 197.2 H, Procalcitonin 0.072 09/16/25 17:12: Chlamy pneumoniae PCR Not detected, Adenovirus (PCR) Not detected, B. pertussis DNA (PCR) Not detected, Coronavirus OC43 (PCR) Not detected, Coronavirus HKU1 (PCR) Not detected, Coronavirus 229E (PCR) Not detected, SARS-CoV-2 (PCR) Not detected, Coronavirus NL63 (PCR) Not detected, Human Metapneumovir PCR Not detected, Influenza A (H1) PCR Not detected, Influ A (H1N1/09) PCR Not detected, Influenza A (H3) PCR Not detected, Influenza Type A (PCR) Not detected, Influenza Type B (PCR) Not detected, M. pneumoniae (PCR) Not detected, Parainfluenza 1 (PCR) Not detected, Parainfluenza 2 (PCR) Not detected, Parainfluenza 3 (PCR) Not detected, Parainfluenza 4 (PCR) Not detected, RSV (PCR) Not detected, Entero/Rhino (PCR) Not detected 09/17/25 06:07: WBC 7.2, RBC 2.97 L, Hgb 8.7 L, Hct 27.5 L, MCV 92.6, MCH 29.3, MCHC 31.6 L, RDW 14.2, Plt Count 404, MPV 9.2, Neut % (Auto) 75.6, Lymph % (Auto) 9.0 L, Divide % (Auto) 11.1 H, Eos % (Auto) 2.9, Baso % (Auto) 0.4, Neut # (Auto) 5.4, Lymph # (Auto) 0.7, [place] # (Auto) 0.8, Eos # (Auto) 0.2, Baso # (Auto) 0.0, Sodium 133 L, Potassium 3.4 L, Chloride 93 L, Carbon Dioxide 38 H, Anion Gap 5.4, BUN 22 H, Creatinine 0.80, Estimated Creat Clear 39, Estimated GFR 70, Est GFR ( Amer) 84, Glucose 100, Calcium 9.5, C-Reactive Protein 193.9 H, Folate 10.10 I & O for Labs for Last 24 Hours: Intake & Output 09/14/25 09/15/25 09/16/25 09/17/25 23:59 23:59 23:59 23:59 Intake Total 580 / 760 970 / 1090 170 / 170 Output Total 1750 / 1750 800 / 800 Balance -1170 / -990 170 / 290 170 / 170 Weight 120 lb 118 lb 4 oz 113 lb 114 lb 6.4 oz Microbiology Reports for the Last 24 Hours: Microbiology 09/14/25 21:38 Blood Blood Culture - Preliminary NO GROWTH AFTER 48 HOURS 09/14/25 21:30 Blood Blood Culture - Preliminary NO GROWTH AFTER 48 HOURS 09/15/25 01:16 Urine,Clean Catch Urine Culture - Final NO GROWTH AFTER 48 HOURS Constitutional: Present moderate distress Head: Present normocephalic and atraumatic ENT: Present normal exam, normal oropharynx and mucous membranes moist Neck: Present normal inspection and full ROM Respiratory: Present prolonged expiratory phase, respiratory distress, wheezes and able to speak in complete sentences Cardiac: Present S1/S2, Tachycardia and radial pulses present GI: Present soft and distention; Absent tenderness or guarding Rectal (female): Present deferred (female): Present deferred Skin: Present intact; Absent cyanosis or jaundice Neuro: Present alert, awake and oriented x 3 Extremities: Present normal inspection; Absent clubbing or cyanosis Psychiatric: Present normal affect and cooperative Meds Home Medications and Allergies Home Medications ?Medication ?Instructions ?Recorded ?Confirmed ?Type fluticasone propionate 50 2 spray intranasal DAILY 03/20/21 09/15/25 History mcg/actuation nasal spray,suspension clopidogrel 75 mg tablet 75 mg PO DAILY 09/14/22 09/15/25 History alendronate 70 mg tablet 70 mg PO WEEKLY 02/17/23 09/15/25 History metoprolol succinate 100 mg 100 mg PO DAILY 03/17/23 09/15/25 History tablet,extended release 24 hr amlodipine 10 mg tablet 10 mg PO DAILY 03/15/24 09/15/25 History furosemide 40 mg tablet 20 mg PO DAILY 04/17/25 09/15/25 History atorvastatin 40 mg tablet 40 mg PO HS 05/15/25 09/15/25 History benazepril 40 mg tablet 40 mg PO DAILY 05/15/25 09/15/25 History duloxetine 60 mg capsule,delayed 60 mg PO DAILY 05/15/25 09/15/25 History release ipratropium 0.5 mg-albuterol 3 mg 3 ml inhalation Q8H 3 months #540 08/17/25 09/15/25 Rx (2.5 mg base)/3 mL nebulization mL soln megestrol 400 mg/10 mL (40 mg/mL) 800 mg PO DAILY 08/17/25 09/15/25 History oral suspension New Prescriptions to Start Prescriptions: Allergies Allergy/AdvReac Type Severity Reaction Status Date / Time cefdinir (From Omnicef) Allergy Intermediate disoriented Verified 09/05/25 13:17 ibandronate sodium (From Allergy Intermediate BP high & Verified 09/05/25 13:17 Boniva) low moxifloxacin (From Avelox) Allergy Unknown Unknown Verified 09/05/25 13:17 allergy reaction Results Laboratory Findings 09/17/25 06:07 09/17/25 06:07 Abnormal lab findings: Abnormal Labs 09/14/25 09/15/25 09/15/25 21:00 00:58 06:24 RBC 3.05 L 2.98 L Hgb 9.1 L 8.7 L Hct 28.5 L 27.4 L MCHC Plt Count 437 H Lymph % (Auto) 8.8 L 8.2 L Divide % (Auto) 11.7 H 10.9 H Lymph # (Auto) 0.6 L 0.5 L Monocytes % (Manual) 14 H VBG pCO2 63.1 H VBG HCO3 31.6 H VBG Total CO2 33.6 H VBG Base Excess 5.5 H Sodium 133 L 133 L Potassium Chloride 95 L 93 L Carbon Dioxide 35 H 37 H BUN Glucose 115 H Troponin I 0.15 H 0.15 H 0.15 H C-Reactive Protein NT-Pro-B Natriuret Pep 8210 H Globulin 3.7 H Albumin/Globulin Ratio 1.0 L 09/16/25 09/16/25 09/17/25 06:50 06:53 06:07 RBC 2.94 L 2.97 L Hgb 8.6 L 8.7 L Hct 27.1 L 27.5 L MCHC 31.7 L 31.6 L Plt Count Lymph % (Auto) 8.3 L 9.0 L Divide % (Auto) 13.9 H 11.1 H Lymph # (Auto) 0.6 L Monocytes % (Manual) VBG pCO2 VBG HCO3 VBG Total CO2 VBG Base Excess Sodium 133 L 133 L Potassium 3.4 L Chloride 93 L 93 L Carbon Dioxide 37 H 38 H BUN 18 H D 22 H Glucose Troponin I C-Reactive Protein 197.2 H 193.9 H NT-Pro-B Natriuret Pep Globulin Albumin/Globulin Ratio Assessment and Plan *Assessment and plan (1) COPD exacerbation: Status: Acute Category: Medical Code(s): J44.1 - Chronic obstructive pulmonary disease with (acute) exacerbation (2) Pneumonia: Status: Acute Category: Medical Code(s): J18.9 - Pneumonia, unspecified organism Plan Ms. Pickens is a 75-year-old female greater than [id number] smoking history COPD, CAD sleep apnea on CPAP small cell lung cancer hypertension renal artery stenosis presented to the ER with worsening respiratory distress and pulmonary was called for further evaluation and management. Patient recently completed radiation therapy for small cell lung cancer. Afebrile. Hemodynamically stable. No evidence of leukocytosis. Comprehensive respiratory viral PCR panel negative. Blood gas upon admission mild hypercarbic respiratory failure 7.32, pCO2 63.1 CTA upon admission no pulmonary embolism. Bilateral diffuse emphysematous changes. No dense consolidative airspace changes. Minimal patchy airspace disease in the right lower lobe. Patient denies any worsening cough or any worsening productive phlegm. Admits to not using her inhaler therapy secondary to higher co-pay. Plan: Initiate Breztri inhaler along with DuoNebs 4 times daily as needed Prednisone 40 mg daily to complete a total of 5-day course Continue oxygen supplementation to maintain O2 saturation goal of 90% never at home baseline 2 L nasal cannula Antibiotics can be weaned to levofloxacin to complete total of 5-day course from pulmonary standpoint. Blood cultures no growth 48 hours. Will do sputum induction. # Thank you for involving pulmonary in this patient care. Will continue to follow
[2025-09-17 12:14] LABS: Iron 37 ug/dL (37-170)
[2025-09-17 12:25] LABS: Total Iron Binding Capacity 326 ug/dL (265-497)
[2025-09-17 13:05] LABS: Vitamin B12 190 pg/mL (239-931)
[2025-09-17] MEDS: CALCIUM CARBONATE 500MG CHEWTAB 1000 MG PO (13:55)
--- NOTE | 2025-09-17 15:44 | XR_ITS ---
FINAL REPORT TECHNIQUE: Single view chest CLINICAL HISTORY: SOB COMPARISON: 09/16/2025, 06/22/2025 FINDINGS: A single view of the chest was obtained. The heart and mediastinum are within normal limits. There is interstitial prominence of the lung bases, similar to prior exam which is likely chronic. No focal infiltrate. There is no pneumothorax. IMPRESSION: Chronic appearing interstitial changes. Reviewed, Interpreted and Dictated by Mara Shaikh MD Transcribed by Lindsay Coughlin Authenticated and [facility]
[2025-09-17 16:52] LABS: Lactate Venous 0.9 mmol/L (0.4-2.0); VBG HCO3 33.6 mmol/L (23-30); VBG PH 7.40 mmol/L (7.31-7.41); VBG PO2 46.0 mmol/L (28-40)
[2025-09-17 16:57] LABS: VBG PCO2 55.1 mmol/L (35-51)
--- NOTE | 2025-09-17 17:48 | PC.NURSE ---
patient is a/ox4 and remains on 3LNC with O2 sats above 90%. patient stated she felt SOB at 1530, no c/o pain, O2 sat was 96% on 3LNC, RT notified, duo neb administered. CXR and VBG ordered per Annangi. VBG results reported to hospitalist at 1725. no new orders. patient is currently sitting up in bed with no complaints, family at bedside, call light within reach.
[2025-09-17] MEDS: ATORVASTATIN 40MG TABLET 40 MG PO (20:39)
[2025-09-17] MEDS: BUDESONIDE/GLYCOPYR/FORMOTEROL 160/9/4.8MCG INHALER 2 PUFF IH (20:47)
[2025-09-18] VITALS: BP 124/66; PULSE 90; RESP 18; O2SAT 95
--- NOTE | 2025-09-18 02:08 | PC.NURSE ---
Pt AOx4, pleasant. Continually denies pain or additional needs. Currently on BIPAP and resting with eyes closed. Respirations even and unlabored. Bed is low, locked, and call light is in reach.
[2025-09-18 02:19] VITALS: RESP 18; RESP 20
[2025-09-18 04:00] VITALS: BP 132/72; PULSE 85; PULSE 88; RESP 18; TEMP 36.5; O2SAT 92; BMI 20.9
[2025-09-18 06:52] LABS: Hematocrit 28.1 % (37.0-47.0); Hemoglobin 8.9 g/dL (12.2-16.2); Immature Granulocytes % 1.2 %; Mean Corpuscular HGB Conc 31.7 g/dL (31.8-35.4); Mean Corpuscular Hemoglobin 29.3 pg (27.0-31.2); Mean Corpuscular Volume 92.4 fl (81-99); Nucleated Red Blood Cells % 0 %; Platelet Count 441 K/mm3 (142-424); Red Blood Count 3.04 M/mm3 (4.20-5.40); Red Cell Distribution Width-SD 48.2 fL; White Blood Count 6.6 K/mm3 (4.8-10.8)
[2025-09-18 06:54] VITALS: RESP 18; RESP 20
[2025-09-18] MEDS: BUDESONIDE/GLYCOPYR/FORMOTEROL 160/9/4.8MCG INHALER 2 PUFF IH (06:54)
[2025-09-18 06:58] LABS: Anion Gap 8.8 mEq/L (5-15); Blood Urea Nitrogen 24 mg/dl (7-17); Calcium 9.7 mg/dl (8.4-10.2); Carbon Dioxide 32 mmol/L (22.0-30.0); Chloride 98 mmol/L (98-107); Creatinine Clearance Estimated 39 mL/min (50-200); Creatinine,Serum 0.80 mg/dl (0.52-1.04); Estimated Glomerular Filt Rate 70 ml/min (>60); GFR (African American) 84 ML/MIN (>60); Glucose 105 mg/dl (74-100); Potassium 4.8 mmoL/L (3.5-5.1); Sodium 134 mmol/L (136-145)
[2025-09-18 07:22] LABS: C-Reactive Protein 179.6 mg/L (0-4)
[2025-09-18 08:00] VITALS: BP 127/60; PULSE 80; PULSE 85; RESP 14; TEMP 36.7; O2SAT 95
[2025-09-18] MEDS: FUROSEMIDE 40 MG TABLET PO (08:04)
[2025-09-18] MEDS: METOPROLOL SUCCINATE XL 100MG TABLET 100 MG PO (08:05)
[2025-09-18] MEDS: POLYETHYLENE GLYCOL 3350 17 GM PACKET PO (08:05)
[2025-09-18] MEDS: CLOPIDOGREL 75MG TAB 75 MG PO (08:05)
--- NOTE | 2025-09-18 08:25 | P.PN_ITS ---
Subjective *Date: 09/18/25 *Time: 12:29 Interval history: Patient states she does not feel well. She denies shortness of breath and chest pain. She states she did sleep last night. She has been eating well. She has not been out of bed. Hemoglobin this morning is 8.9 with a hematocrit of 28.1. Blood chemistries show a normal potassium at 4.8. Exam Data for Last 24 hours Vital signs and Labs for Last 24 Hours: Temp Pulse Resp BP Pulse Ox O2 Del Method O2 Flow Rate 98.1 F 85 14 127/60 95 Nasal Cannula 4 09/18/25 08:00 09/18/25 08:00 09/18/25 08:00 09/18/25 08:00 09/18/25 08:00 09/18/25 08:00 09/18/25 08:00 FiO2 35 09/18/25 06:54 Laboratory Results - last 24 hr 09/17/25 06:07: Iron 37, TIBC 326, Iron Saturation 11.67114 L, Vitamin B12 190 L , Folate 10.10 09/17/25 14:41: VBG pH 7.40, VBG pCO2 55.1 H, VBG pO2 46.0 H, VBG HCO3 33.6 H, VBG Total CO2 35.3 H, VBG O2 Saturation 79.5 H, VBG Base Excess 8.8 H, VBG Lactic Acid 0.9 09/18/25 05:53: WBC 6.6, RBC 3.04 L, Hgb 8.9 L, Hct 28.1 L, MCV 92.4, MCH 29.3, MCHC 31.7 L, RDW 14.2, Plt Count 441 H, MPV 9.5, Neut % (Auto) 87.6 H, Lymph % (Auto) 6.6 L, [place] % (Auto) 4.1, Eos % (Auto) 0.2, Baso % (Auto) 0.3, Neut # (Auto) 5.8, Lymph # (Auto) 0.4 L, [place] # (Auto) 0.3, Eos # (Auto) 0.0, Baso # (Auto) 0.0, Sodium 134 L, Potassium 4.8 D, Chloride 98, Carbon Dioxide 32 H, Anion Gap 8.8, BUN 24 H, Creatinine 0.80, Estimated Creat Clear 39, Estimated GFR 70, Est GFR ( Amer) 84, Glucose 105 H, Calcium 9.7, C-Reactive Protein 179.6 H I & O for Last 24 hours: Intake & Output 09/15/25 09/16/25 09/17/25 09/18/25 11:59 11:59 11:59 11:59 Intake Total 240 / 240 760 / 760 770 / 770 270 / 270 Output Total 1450 / 1450 300 / 300 800 / 800 1450 / 1450 Balance -1210 / -1210 460 / 460 -30 / -30 -1180 / -1180 Weight 118 lb 4 oz 113 lb 114 lb 6.4 oz 114 lb 2 oz Microbiology Reports for the Last 24 Hours: Microbiology 09/16/25 12:16 Sputum - Expectorated Sputum Gram Stain - Final 09/16/25 12:16 Sputum - Expectorated Sputum Sputum Culture - Preliminary Constitutional Constitutional: no acute distress Comments: O2 per nasal cannula 3 to 4 L/min; sitting up in the bed and is drinking her coffee. *Routine Respiratory Exam Respiratory: Present decreased breath sounds (On the right) and normal respiratory effort; Absent accessory muscle use *Routine Cardiovascular Exam Cardiovascular: Present RRR *Routine Abdominal Exam Abdominal: Present soft and normoactive bowel sounds; Absent tenderness *Routine Extremities Exam Extremities: Absent edema or calf tenderness *Routine Neurological Exam Neurological: Present alert and oriented X3 Assessment and Plan *Assessment and plan (1) Acute on chronic respiratory failure with hypoxia and hypercapnia: Status: Acute Category: Medical Code(s): J96.21 - Acute and chronic respiratory failure with hypoxia; J96.22 - Acute and chronic respiratory failure with hypercapnia (2) Anemia: Status: Acute Qualifiers: Anemia type: unspecified type Qualified Code(s): D64.9 - Anemia, unspecified Category: Medical Code(s): D64.9 - Anemia, unspecified (3) Elevated troponin: Status: Acute Category: Medical Code(s): R79.89 - Other specified abnormal findings of blood chemistry (4) Elevated brain natriuretic peptide (BNP) level: Status: Acute Category: Medical Code(s): R79.89 - Other specified abnormal findings of blood chemistry (5) Lung cancer: Status: Acute Qualifiers: Laterality: unspecified laterality Lung location: upper lobe of lung Qualified Code(s): C34.10 - Malignant neoplasm of upper lobe, unspecified bronchus or lung Category: Medical Code(s): C34.90 - Malignant neoplasm of unspecified part of unspecified bronchus or lung (6) Pneumonia: Status: Acute Category: Medical Code(s): J18.9 - Pneumonia, unspecified organism (7) Hypokalemia: Status: Acute Category: Medical Code(s): E87.6 - Hypokalemia Plan Will consult physical therapy. Possibly home today. Dr. Syed entry - Saw patient, agree with above note. PT saw patient and recommends home health. OK for discharge today on Levaquin and Prednisone, follow up with Dr. Rojas and Dr. Betancourt next week.
[2025-09-18 09:09] LABS: Total Cells Counted 100
--- NOTE | 2025-09-18 09:29 | HMH.PTEV ---
Physical Therapy Evaluation Rehab PT IP Evaluation Start: 09/18/25 08:43 Freq: ONCE Status: Active Protocol: Document 09/18/25 09:02 ALEX (Rec: 09/18/25 09:29 ALEX [id number]) Subjective/History History History Per H&P: This is a 75-year-old female who has a past medical history significant for coronary artery disease, prior smoking, obstructive sleep apnea CPAP dependent) COPD, sleep apnea, osteoporosis, small cell lung cancer, [place]ax, hyperlipidemia, hypertension, renal artery stenosis, bronchitis, and iron deficiency anemia who presents with a chief complaint of shortness of breath. Due to patient's symptoms, she presented to the emergency room for evaluation. While in the emergency room, ER provider states that patient' s oxygen saturation on her home O2 regiment was 85%. She was placed on 4 L; moreover, patient did have an elevated BNP and her troponin was elevated. EKG revealed a sinus rhythm QTc of 496, normal axis, biphasic T waves in the lateral/anterior-no STEMI. As a result, patient has been admitted for further management. During my evaluation of the patient, patient voices having increasing shortness of air over the past 2 to 3 days. She was recently treated with radiation for her small cell lung cancer. Review of patient's oncologist (Dr. Corcoran) reports that he is starting patient on durvalumab because she is not a chemotherapy candidate. Patient had no metastasis noted on any additional imaging. Per my independent evaluation, CTA of the chest shows chronic changes and does not have any findings consistent with pleural effusions-is pending final read by the radiologist. She is currently denying any chest pain, lightheadedness, dizziness, orthopnea, nausea, vomiting, or diarrhea. Additional pertinent vitals obtained include red blood cell count of 3.05, hemoglobin 9.1, hematocrit 28.5, pCO2 63, sodium 133, chloride of 95, carbon dioxide of 35, blood glucose 115, troponin 0.15, and BNP of 8210. Subjective Subjective Pt reports she lives in a single-story home with 1 THAI. Pt lives with her who is able to provide 24/7 assistance is needed. Pt is normally able to ambulate IND without AD. Pt owns a RW. Pt still drives. Pt on supplemental O2 at home. New diagnosis of No cancer in past 12 months? [facility] How much help from another person do you currently need... Turning from your None back to your side while in a flat bed without using bedrails? Moving from lying on None back to sitting on the side of a flat bed without using bedrails? Moving to and from a None bed to a chair ( including a wheelchair)? Standing up from a None chair using your arms? (e.g., wheelchair, bedside chair) Walking in hospital A little room? Climbing 3-5 steps A little with a railing? Mobility Score 22 Mobility Level [facility] Mobility 7 Walk 25 feet or more Mobility Calculator Rehab PT IP Eval Objective Appearance Patient Behavior Appropriate,Cooperative Patient Orientation Person,Birthday,Situation Difficulty following none instructions Speech Pattern Clear Ambulation Patient Able to Yes Ambulate Ambulation Observation IP General Gait Decrease Stride Lngth (R),Decrease Stride Lngth (L) Pattern Observation Ambulation Distance 20 (feet) Ambulation Assistive Rolling Walker Device Ambulation Ability Contact Guard/Hand Hold Balance Ability to Arise Able, uses arms to help Sitting Balance Steady, safe Standing Balance Steady, wide stance Dynamic Sitting Good Balance Ability Dynamic Standing Fair Balance Ability Transfers Bed Transfer Ability Supervision/Stand by Sit to Stand Bed Supervision/Stand by Transfer Ability Rehab PT IP prob,goals,plan Problems Date of Evaluation: 09/18/25 PT IP Problems Bed Mobility,Transfers,Gait,Balance,Self care,Safety Rehab Potential Rehab Potential Good Plan PT Intervention Plan Bed Mobility,Transfers,Gait,Balance,Self care,Safety, Therapeutic Exercise PT Plan Frequency Daily Duration Goals Met Discharge Goals Bed Transfer Ability Independent Sit to Stand Chair Independent Transfer Ability Ambulation Assistive Rolling Walker Device Ambulation Distance 50 (feet) Discharge Plan PT Discharge Plan Pt presents at her baseline in mobility and strength and would benefit from skilled PT while at [facility] to address deficits and prevent further functional decline . Pt most appropriate to d/c home when medically necessary with PT services and 31/05 assistance from family. Eval Complexity Eval Charge Codes 49743 - Moderate Complexity PHYSICIAN CERTIFICATION: I certify the specified therapy services for Antonia Pickens are required, authorized, and reviewed every 30 days.
--- NOTE | 2025-09-18 10:17 | SW/DCPLANNER ---
Addendum entered by Carlene Castle 09/18/25 12:02: [facility] does not cover [facility] and they sent it to their sister company [facility] and they were able to accept patient. Jessica Jessica Original Note: Spoke with patient and patient's regarding home health services once patient is medically stable and ready for discharge. Patient and patient's stated that they are interested in home health and that they do not have a preference in what agency i send her information to. I will fax patient's information to [facility] and will update once i hear back if they can accept or not. Jessica Jessica
[2025-09-18 11:52] VITALS: BMI 20.9
[2025-09-18 12:00] VITALS: PULSE 80
--- NOTE | 2025-09-18 12:31 | EXP.PULM.PN ---
Subjective *Date: 09/18/25 *Time: 12:31 Interval history: No acute respiratory vents overnight. Patient denies any new respiratory complaints Pulmonology Exam Inpatient Vital signs and Labs for Last 24 Hours: Temp Pulse Resp BP Pulse Ox O2 Del Method O2 Flow Rate 98.1 F 85 14 127/60 95 Room Air 4 09/18/25 08:00 09/18/25 08:00 09/18/25 08:00 09/18/25 08:00 09/18/25 08:00 09/18/25 09:00 09/18/25 08:00 FiO2 35 09/18/25 06:54 Laboratory Results - last 24 hr 09/17/25 06:07: Vitamin B12 190 L 09/17/25 14:41: VBG pH 7.40, VBG pCO2 55.1 H, VBG pO2 46.0 H, VBG HCO3 33.6 H, VBG Total CO2 35.3 H, VBG O2 Saturation 79.5 H, VBG Base Excess 8.8 H, VBG Lactic Acid 0.9 09/18/25 05:53: WBC 6.6, RBC 3.04 L, Hgb 8.9 L, Hct 28.1 L, MCV 92.4, MCH 29.3, MCHC 31.7 L, RDW 14.2, Plt Count 441 H, MPV 9.5, Neut % (Auto) 87.6 H, Lymph % (Auto) 6.6 L, [place] % (Auto) 4.1, Eos % (Auto) 0.2, Baso % (Auto) 0.3, Neut # (Auto) 5.8, Lymph # (Auto) 0.4 L, [place] # (Auto) 0.3, Eos # (Auto) 0.0, Baso # (Auto) 0.0, Total Counted 100, Neutrophils % (Manual) 89 H, Lymphocytes % (Manual) 7 L, Monocytes % (Manual) 4, Platelet Estimate Normal, Sodium 134 L, Potassium 4.8 D, Chloride 98, Carbon Dioxide 32 H, Anion Gap 8.8, BUN 24 H, Creatinine 0.80, Estimated Creat Clear 39, Estimated GFR 70, Est GFR ( Amer) 84, Glucose 105 H, Calcium 9.7, C-Reactive Protein 179.6 H Temp Pulse Resp BP Pulse Ox O2 Del Method O2 Flow Rate 98 F 87 18 138/67 93 L BiPAP 3 09/17/25 08:00 09/17/25 08:00 09/17/25 08:00 09/17/25 08:00 09/17/25 08:00 09/17/25 08:00 09/16/25 21:00 FiO2 35 09/17/25 06:51 Laboratory Results - last 24 hr 09/16/25 06:50: Ferritin 26.3 D, C-Reactive Protein 197.2 H, Procalcitonin 0.072 09/16/25 17:12: Chlamy pneumoniae PCR Not detected, Adenovirus (PCR) Not detected, B. pertussis DNA (PCR) Not detected, Coronavirus OC43 (PCR) Not detected, Coronavirus HKU1 (PCR) Not detected, Coronavirus 229E (PCR) Not detected, SARS-CoV-2 (PCR) Not detected, Coronavirus NL63 (PCR) Not detected, Human Metapneumovir PCR Not detected, Influenza A (H1) PCR Not detected, Influ A (H1N1/09) PCR Not detected, Influenza A (H3) PCR Not detected, Influenza Type A (PCR) Not detected, Influenza Type B (PCR) Not detected, M. pneumoniae (PCR) Not detected, Parainfluenza 1 (PCR) Not detected, Parainfluenza 2 (PCR) Not detected, Parainfluenza 3 (PCR) Not detected, Parainfluenza 4 (PCR) Not detected, RSV (PCR) Not detected, Entero/Rhino (PCR) Not detected 09/17/25 06:07: WBC 7.2, RBC 2.97 L, Hgb 8.7 L, Hct 27.5 L, MCV 92.6, MCH 29.3, MCHC 31.6 L, RDW 14.2, Plt Count 404, MPV 9.2, Neut % (Auto) 75.6, Lymph % (Auto) 9.0 L, [place] % (Auto) 11.1 H, Eos % (Auto) 2.9, Baso % (Auto) 0.4, Neut # (Auto) 5.4, Lymph # (Auto) 0.7, [place] # (Auto) 0.8, Eos # (Auto) 0.2, Baso # (Auto) 0.0, Sodium 133 L, Potassium 3.4 L, Chloride 93 L, Carbon Dioxide 38 H, Anion Gap 5.4, BUN 22 H, Creatinine 0.80, Estimated Creat Clear 39, Estimated GFR 70, Est GFR ( Amer) 84, Glucose 100, Calcium 9.5, C-Reactive Protein 193.9 H, Folate 10.10 I & O for Labs for Last 24 Hours: Intake & Output 09/15/25 09/16/25 09/17/25 09/18/25 23:59 23:59 23:59 23:59 Intake Total 580 / 760 970 / 1090 490 / 490 Output Total 1750 / 1750 800 / 800 1000 / 1450 450 / 450 Balance -1170 / -990 170 / 290 -510 / -960 -450 / -450 Weight 118 lb 4 oz 113 lb 114 lb 6.4 oz 114 lb 2 oz Intake & Output 09/14/25 09/15/25 09/16/25 09/17/25 23:59 23:59 23:59 23:59 Intake Total 580 / 760 970 / 1090 170 / 170 Output Total 1750 / 1750 800 / 800 Balance -1170 / -990 170 / 290 170 / 170 Weight 120 lb 118 lb 4 oz 113 lb 114 lb 6.4 oz Microbiology Reports for the Last 24 Hours: Microbiology 09/16/25 12:16 Sputum - Expectorated Sputum Gram Stain - Final 09/16/25 12:16 Sputum - Expectorated Sputum Sputum Culture - Preliminary Microbiology 09/14/25 21:38 Blood Blood Culture - Preliminary NO GROWTH AFTER 48 HOURS 09/14/25 21:30 Blood Blood Culture - Preliminary NO GROWTH AFTER 48 HOURS 09/15/25 01:16 Urine,Clean Catch Urine Culture - Final NO GROWTH AFTER 48 HOURS Constitutional: Present moderate distress Head: Present normocephalic and atraumatic ENT: Present normal exam, normal oropharynx and mucous membranes moist Neck: Present normal inspection and full ROM Respiratory: Present prolonged expiratory phase, respiratory distress, wheezes and able to speak in complete sentences Cardiac: Present S1/S2, Tachycardia and radial pulses present GI: Present soft and distention; Absent tenderness or guarding Rectal (female): Present deferred (female): Present deferred Skin: Present intact; Absent cyanosis or jaundice Neuro: Present alert, awake and oriented x 3 Extremities: Present normal inspection; Absent clubbing or cyanosis Psychiatric: Present normal affect and cooperative Assessment and Plan *Assessment and plan (1) COPD exacerbation: Status: Acute Category: Medical Code(s): J44.1 - Chronic obstructive pulmonary disease with (acute) exacerbation (2) Pneumonia: Status: Acute Category: Medical Code(s): J18.9 - Pneumonia, unspecified organism Plan Ms. Pickens is a 75-year-old female greater than [id number] smoking history COPD, CAD sleep apnea on CPAP small cell lung cancer hypertension renal artery stenosis presented to the ER with worsening respiratory distress and pulmonary was called for further evaluation and management. Patient recently completed radiation therapy for small cell lung cancer. Afebrile. Hemodynamically stable. No evidence of leukocytosis. Comprehensive respiratory viral PCR panel negative. Blood gas upon admission mild hypercarbic respiratory failure 7.32, pCO2 63.1 CTA upon admission no pulmonary embolism. Bilateral diffuse emphysematous changes. No dense consolidative airspace changes. Minimal patchy airspace disease in the right lower lobe. Patient denies any worsening cough or any worsening productive phlegm. Admits to not using her inhaler therapy secondary to higher co-pay. Interval update: No acute respiratory events overnight. Worsening distress even yesterday evening likely from anxiety but chest x-ray and ABG did not show any significant difference from prior. Plan: Continue Breztri inhaler along with DuoNebs 4 times daily as needed Prednisone 40 mg daily to complete a total of 5-day course Continue oxygen supplementation to maintain O2 saturation goal of 90% never at home baseline 2 L nasal cannula Continue levofloxacin to complete total of 5-day course from pulmonary standpoint. Prelim sputum cultures gram-positive cocci. Blood cultures no growth so far. # Thank you for involving pulmonary in this patient care. Patient can be discharged from pulmonary standpoint. Will follow the patient in pulmonary clinic 5 to 10 days postdischarge
--- NOTE | 2025-09-19 11:58 | CARE MANAGER ---
Spoke with patient's spouse, who stated that patient received all new medication prescribed at discharge. He was aware of PCP f/u appt, but is planning to change today's appt with Dr. Rojas. No concerns voiced at time of call.
--- NOTE | 2025-09-20 16:16 | EXP.DC.SUM ---
General Admission date:: 09/14/25 Discharge date: 09/18/25 HPI HPI HPI: This is a 75-year-old female who has a past medical history significant for coronary artery disease, prior smoking, obstructive sleep apnea CPAP dependent) COPD, sleep apnea, osteoporosis, small cell lung cancer, Atarax, hyperlipidemia, hypertension, renal artery stenosis, bronchitis, and iron deficiency anemia who presents with a chief complaint of shortness of breath. Due to patient's symptoms, she presented to the emergency room for evaluation. While in the emergency room, ER provider states that patient's oxygen saturation on her home O2 regiment was 85%. She was placed on 4 L; moreover, patient did have an elevated BNP and her troponin was elevated. EKG revealed a sinus rhythm QTc of 496, normal axis, biphasic T waves in the lateral/anterior-no STEMI. As a result, patient has been admitted for further management. During my evaluation of the patient, patient voices having increasing shortness of air over the past 2 to 3 days. She was recently treated with radiation for her small cell lung cancer. Review of patient's oncologist (Dr. Corcoran) reports that he is starting patient on durvalumab because she is not a chemotherapy candidate. Patient had no metastasis noted on any additional imaging. Per my independent evaluation, CTA of the chest shows chronic changes and does not have any findings consistent with pleural effusions-is pending final read by the radiologist. She is currently denying any chest pain, lightheadedness, dizziness, orthopnea, nausea, vomiting, or diarrhea. Additional pertinent vitals obtained include red blood cell count of 3.05, hemoglobin 9.1, hematocrit 28.5, pCO2 63, sodium 133, chloride of 95, carbon dioxide of 35, blood glucose 115, troponin 0.15, and BNP of 8210. Hospital Course Hospital Course Hospital Course: The patient was admitted with acute on chronic hypoxic and hypercapnic respiratory failure. Her troponin was elevated as was her BNP. She was placed on BiPAP and given 40 mg of IV Lasix. An echo was ordered and cardiology was consulted. By 09/16/2025, she was feeling much better and her breathing had improved. The hospitalist discussed the case with Dr. Francis who recommended monitoring the patient throughout the weekend and getting an echo on Wednesday for new onset heart failure. Her blood cultures showed no growth. The patient had recently completed radiation therapy for left upper lobe small cell lung cancer at [facility]. She currently follows with Dr. Corcoran at [facility]. Her CTA did show pulmonary edema. She diuresed well and was continued on IV Lasix. She was started on 81 mg aspirin. By the evening of 09/16/2025, she had had increased work of breathing and a repeat chest x-ray was suggestive of a left lower lobe pneumonia. She was empirically started on IV Zosyn. She remained on BiPAP. The patient's family did not want cardiology to see the patient at [facility], but they were agreeable to a pulmonology consult. She was seen by the agricultural service technician who initiated Dharai along with Scott and wanted the patient to continue prednisone 40 mg daily for 5 days. He also felt her antibiotics could be weaned to Levaquin to complete a total of 5 days. By 09/18/2025, she still was not feeling well. Physical therapy was consulted. They recommended home health. Patient was stable to be discharged home on Levaquin and prednisone and will follow-up with Dr. Corcoran and Dr. Betancourt. Exam Data for Last 24 hours Vital signs and Labs for Last 24 Hours: Temp Pulse Resp BP Pulse Ox O2 Del Method O2 Flow Rate 98.1 F 80 14 127/60 95 Nasal Cannula 4 09/18/25 08:00 09/18/25 12:00 09/18/25 08:00 09/18/25 08:00 09/18/25 08:00 09/18/25 13:00 09/18/25 08:00 FiO2 35 09/18/25 06:54 I & O for Last 24 hours: Intake & Output 09/18/25 09/19/25 09/20/25 09/21/25 11:59 11:59 11:59 11:59 Intake Total 270 / 270 200 / 200 Output Total 1450 / 1450 Balance -1180 / -1180 200 / 200 Weight 114 lb 2 oz Microbiology Reports for the Last 24 Hours: Microbiology 09/14/25 21:38 Blood Blood Culture - Final NO GROWTH AFTER 5 DAYS 09/14/25 21:30 Blood Blood Culture - Final NO GROWTH AFTER 5 DAYS Narrative: Constitutional Constitutional: no acute distress, thin and chronically ill appearing *Routine HEENT Exam Head: Present normocephalic and atraumatic Eye: Present EOMI, PERRL and normal accommodation ENT: Present mucous membranes moist *Routine Neck Exam Neck: Present supple, full ROM and trachea midline *Routine Respiratory Exam Respiratory: Present decreased breath sounds, diminished air movement, normal respiratory effort, able to speak in complete sentences and symmetric chest movement *Routine Cardiovascular Exam Cardiovascular: Present RRR, Normal S1 and Normal S2 *Routine Abdominal Exam Abdominal: Present soft and normoactive bowel sounds *Routine Rectal Exam Rectal:: deferred *Routine Genitalia Exam Genitalia:: deferred *Routine Extremities Exam Extremities: Present full ROM, pulses intact and normal capillary refill Routine Back/Spine/Pelvis Exam Back/Spine: Present full ROM *Routine Skin Exam Skin: Present intact, dry and warm *Routine Neurological Exam Neurological: Present alert, oriented X3 and CN II-XII intact Routine Psychiatric Exam Psychiatric: Present normal affect, normal thought process, cooperative, good insight and good judgment DS: Diagnosis Discharge Diagnosis (1) COPD exacerbation: Status: Acute Code(s): J44.1 - Chronic obstructive pulmonary disease with (acute) exacerbation (2) Pneumonia: Status: Acute Code(s): J18.9 - Pneumonia, unspecified organism Meds Home Medications and Allergies Home Medications ?Medication ?Instructions ?Recorded ?Confirmed ?Type fluticasone propionate 50 2 spray intranasal DAILY 03/20/21 09/15/25 History mcg/actuation nasal spray,suspension clopidogrel 75 mg tablet 75 mg PO DAILY 09/14/22 09/15/25 History alendronate 70 mg tablet 70 mg PO WEEKLY 02/17/23 09/15/25 History metoprolol succinate 100 mg 100 mg PO DAILY 03/17/23 09/15/25 History tablet,extended release 24 hr amlodipine 10 mg tablet 10 mg PO DAILY 03/15/24 09/15/25 History furosemide 40 mg tablet 20 mg PO DAILY 04/17/25 09/15/25 History atorvastatin 40 mg tablet 40 mg PO HS 05/15/25 09/15/25 History benazepril 40 mg tablet 40 mg PO DAILY 05/15/25 09/15/25 History duloxetine 60 mg capsule,delayed 60 mg PO DAILY 05/15/25 09/15/25 History release ipratropium 0.5 mg-albuterol 3 mg 3 ml inhalation Q8H 3 months #540 08/17/25 09/15/25 Rx (2.5 mg base)/3 mL nebulization mL soln megestrol 400 mg/10 mL (40 mg/mL) 800 mg PO DAILY 08/17/25 09/15/25 History oral suspension budesonide 160 mcg-glycopyr 9 2 puff inhalation BIDRT #1 g 09/18/25 Rx mcg-formot 4.8 mcg/actuation HFA inhaler (Breztri Aerosphere) levofloxacin 500 mg tablet 500 mg PO DAILY #5 tabs 09/18/25 Rx polyethylene glycol 3350 17 gram 17 g PO DAILY #1 ea 09/18/25 Rx oral powder packet (HealthyLax) prednisone 20 mg tablet 20 mg PO BID #10 tabs 09/18/25 Rx New Prescriptions to Start Prescriptions: [id number] [Breztri Aerosphere] [place],Riki levofloxacin [place],Riki polyethylene glycol 3350 [HealthyLax] [place],Riki prednisone [place],Riki Allergies Allergy/AdvReac Type Severity Reaction Status Date / Time cefdinir (From Omnicef) Allergy Intermediate disoriented Verified 09/05/25 13:17 ibandronate sodium (From Allergy Intermediate BP high & Verified 09/05/25 13:17 Boniva) low moxifloxacin (From Avelox) Allergy Unknown Unknown Verified 09/05/25 13:17 allergy reaction Discharge Plan Disposition Patient Disposition: Home Health Service Condition: Fair Discharge Order Discharge Orders: Discharge Order (Routine); Ordered 09/18/25 Ordered By: Riki Syed Follow up Plan Follow up with: Tariq Betancourt MD [Primary Care Provider, Medical] - 09/27/25 10:00 am Prescriptions/Medication Reconciliation: New polyethylene glycol 3350 [HealthyLax] 17 gram Powder In Packet 17 g PO DAILY Qty: 1 0RF prednisone 20 mg Tablet 20 mg PO BID Qty: 10 0RF levofloxacin 500 mg Tablet 500 mg PO DAILY Qty: 5 0RF Breztri Aerosphere 160-9-4.8 mcg/actuation Hfa Aerosol Inhaler 2 puff inhalation BIDRT Qty: 1 0RF Continued fluticasone propionate 50 mcg/actuation spray,suspension 2 spray INTRANASAL DAILY metoprolol succinate 100 mg tablet extended release 24 hr 100 mg PO DAILY amlodipine 10 mg tablet 10 mg PO DAILY Patient Comments: TAKE 1 TABLET BY MOUTH ONCE DAILY furosemide 40 mg tablet 20 mg PO DAILY Patient Comments: TAKE 1/2 (ONE-HALF) TABLET BY MOUTH ONCE DAILY atorvastatin 40 mg tablet 40 mg PO HS Patient Comments: TAKE 1 TABLET BY MOUTH ONCE DAILY AT BEDTIME benazepril 40 mg tablet 40 mg PO DAILY Patient Comments: TAKE 1 TABLET BY MOUTH ONCE DAILY duloxetine 60 mg capsule,delayed release(DR/EC) 60 mg PO DAILY Patient Comments: TAKE 1 CAPSULE BY MOUTH ONCE DAILY megestrol 400 mg/10 mL (40 mg/mL) suspension 800 mg PO DAILY Patient Comments: TAKE 20 ML BY MOUTH ONCE DAILY alendronate 70 mg tablet 70 mg PO WEEKLY ipratropium-albuterol 0.5 mg-3 mg(2.5 mg base)/3 mL solution for nebulization 3 ml inhalation Q8H 90 Days Qty: 540 3RF clopidogrel 75 mg tablet 75 mg PO DAILY Problem Reconciliation Problems Reviewed?: Yes Patient Discharge Instructions ACTIVITY: Continue current activity DIET: continue same diet Patient Instructions: DI for Respiratory Failure, Hypokalemia, Stop Light COPD Print Language: [place] Citizen Providers Primary Care Provider: Tariq Betancourt Admit Provider: Krishna Dougherty Attending Provider: Riki Syed
== END 2025-09-18 14:00 | disposition home health service (06) | DRG 189 ==
LOC: ER 22:54 → 2ND 23:37
PROVIDERS: Internal Medicine Pulmonary Disease; Nurse Practitioner Family; Admitting Provider Student in an Organized Health Care Education/Training Program; Emergency Provider Student in an Organized Health Care Education/Training Program; PCP Family Medicine; Visit Provider Family Medicine
DX: J96.21 Acute and chronic respiratory failure with hypoxia (principal); J18.9 Pneumonia, unspecified organism; I21.A1 Myocardial infarction type 2; J44.1 Chronic obstructive pulmonary disease with (acute) exacerbation; J44.0 Chronic obstructive pulmonary disease with (acute) lower respiratory infection; C34.12 Malignant neoplasm of upper lobe, left bronchus or lung; J96.22 Acute and chronic respiratory failure with hypercapnia; R79.89 Other specified abnormal findings of blood chemistry; I25.10 Atherosclerotic heart disease of native coronary artery without angina pectoris; G47.33 Obstructive sleep apnea (adult) (pediatric); M81.0 Age-related osteoporosis without current pathological fracture; E78.5 Hyperlipidemia, unspecified; D50.9 Iron deficiency anemia, unspecified; I11.0 Hypertensive heart disease with heart failure; I50.9 Heart failure, unspecified; F41.9 Anxiety disorder, unspecified; F32.A Depression, unspecified; E87.6 Hypokalemia; Z96.641 Presence of right artificial hip joint; Z92.3 Personal history of irradiation; Z87.891 Personal history of nicotine dependence; Z79.02 Long term (current) use of antithrombotics/antiplatelets; Z79.82 Long term (current) use of aspirin; Z79.52 Long term (current) use of systemic steroids
CPT/HCPCS: 0223U; 36415; 51798; 71045; 71275; 80048; 80053; 81001; 82607; 82728; 82746; 82803; 83540; 83550; 83735; 83880; 84100; 84145; 84484; 85007; 85025; 86140; 87040; 87070; 87086; 87205; 87631; 89220; 93005; 93306; 94640; 94660; 94760; 94761; 97162; 99285; J1650; J1938; J2543

== ENCOUNTER 2025-09-27 12:49 | Outpatient (CLI) | payer MEDICARE, OTHER, SELFPAY ==
--- NOTE | 2025-09-27 12:55 | XR_ITS ---
FINAL REPORT CLINICAL HISTORY: mid anterior left rib pain after resent fall COMPARISON: Chest x-ray dated 09/17/2025 FINDINGS: LEFT RIBS WITH CHEST A single PA view of the chest and three views of the left ribs were obtained. The heart and mediastinum within normal limits. The lungs are hyperinflated. There are mild chronic changes at the bases. There is no pneumothorax. There is no acute displaced rib fracture. IMPRESSION: No acute cardiopulmonary process. No displaced rib fracture with no pneumothorax Reviewed, Interpreted and Dictated by Tarik Lagos MD Transcribed by Liat Tim Authenticated and [facility]
--- OUTSIDE RECORDS SUMMARY | 2025-09-27 14:05 | XMS_ITS | Clinical Summary ---
Author Organization [facility] Address [address] [place] [address] Care Team Providers Care Car Record Clerk Name Role Phone Tariq Betancourt MD Primary Care Provider [phone] Stan Leroy MD Unavailable [phone] Allergies No known active allergies Medications [...] Department Care Team Description 08/30/2025 Orders Only [facility] at [address] [address] Stan Leroy MD from Last [...] or (1 - 1-dose 75+ series) 2023 [id number]-41 Vaccine (6 - season) 2025 08/25/2022, 06/18/2022, [...] ult from Last 3 Months Insurance MEDICARE [facility] Care Teams Car Record Clerk Relationship Specialty Start Date End Date Tariq Betancourt MD [address] [facility] [address] [place] [address] PCP - General 03/21/21 Stan Leroy MD [address] [place] [address] Medical Oncologist Hematology and Oncology 04/10/24 BAYLEE Henao [address] [place] [address] Referring Physician Orthopaedic Surgery 04/07/24
--- OUTSIDE RECORDS SUMMARY | 2025-09-27 14:06 | XMS_ITS | Encounter Summary ---
Author Organization [facility] Address [address] [place] [address] Care Team Providers Care Stove Bottom Worker Name Role Phone Tariq Betancourt MD Primary Care Provider [phone] Stan Leroy MD Unavailable [phone] Encounter Details Date Type Department Care Team (Late st Contact Info) Description 08/30/2025 Orders Only [facility] at [facility] [address] [place] [address] Stan Leroy MD [address] [address] Social History Tobacco Use Types [...] GFR (08/30/2025 3:53 PM EDT) Blood Result [facility] Stan Leroy MD LAB BLOOD ORDERABLES Final Res ult documented in this encounter Visit Diagnoses Not on filedocumented in this encounter Care Teams Stove Bottom Worker Relationship Specialty Start Date End Date Tariq Betancourt MD [address] [facility] [address] [place] [address] PCP - General 03/21/21 Stan Leroy MD [address] [place] [address] Medical Oncologist Hematology and Oncology 04/10/24 BAYLEE Henao [address] [place], [place] [id number] Referring Physician Orthopaedic Surgery 04/07/24 documented as of this encounter
== END 2025-09-27 23:59 | disposition home or self-care (01) ==
LOC: RAD 12:51
PROVIDERS: PCP Family Medicine; Visit Provider Family Medicine
DX: R07.81 Pleurodynia (principal); W19.XXXA Unspecified fall, initial encounter
CPT/HCPCS: 71101

== ENCOUNTER 2025-10-16 10:58 | Outpatient (CLI) | payer MEDICARE, OTHER, SELFPAY ==
[2025-10-16 11:41] LABS: Hematocrit 25.3 % (37.0-47.0); Hemoglobin 7.9 g/dL (12.2-16.2); Immature Granulocytes % 1.7 %; Mean Corpuscular HGB Conc 31.2 g/dL (31.8-35.4); Mean Corpuscular Hemoglobin 27.6 pg (27.0-31.2); Mean Corpuscular Volume 88.5 fl (81-99); Nucleated Red Blood Cells % 0 %; Platelet Count 517 K/mm3 (142-424); Red Blood Count 2.86 M/mm3 (4.20-5.40); Red Cell Distribution Width-SD 53.1 fL; White Blood Count 8.9 K/mm3 (4.8-10.8)
[2025-10-16 11:48] LABS: Alanine Aminotransferase 20 U/L (12-78); Albumin Level 3.5 g/dl (3.5-5.0); Albumin/Globulin Ratio 1.0 (1.1-1.8); Alkaline Phosphatase 87 U/L (38-126); Anion Gap 14.0 mEq/L (5-15); Aspartate Amino Transferase 34 U/L (14-36); Bilirubin,Total 0.4 mg/dl (0.2-1.3); Blood Urea Nitrogen 18 mg/dl (7-17); Calcium 9.1 mg/dl (8.4-10.2); Carbon Dioxide 25 mmol/L (22.0-30.0); Chloride 99 mmol/L (98-107); Creatinine,Serum 0.90 mg/dl (0.52-1.04); Estimated Glomerular Filt Rate 61 ml/min (>60); GFR (African American) 73 ML/MIN (>60); Globulin 3.4 g/dL (1.3-3.2); Glucose 101 mg/dl (74-100); Potassium 4.0 mmoL/L (3.5-5.1); Sodium 134 mmol/L (136-145); Total Protein,Serum 6.9 g/dl (6.3-8.2)
[2025-10-16 12:30] VITALS: BP 116/74; PULSE 81; RESP 20; O2SAT 96
[2025-10-16] MEDS: SODIUM CHLORIDE 0.9% IV (12:31)
[2025-10-16] MEDS: DURVALUMAB IV (12:31)
[2025-10-16 13:00] VITALS: BP 124/69; PULSE 76
[2025-10-16 13:30] VITALS: BP 122/71; PULSE 78; RESP 20; O2SAT 96
[2025-10-16] MEDS: SODIUM CHLORIDE 0.9% 10ML FLUSH SYRINGE 10 ML IV (14:24)
== END 2025-10-16 23:59 | disposition home or self-care (01) ==
LOC: INF 11:00
PROVIDERS: PCP Family Medicine; Visit Provider Internal Medicine Medical Oncology
DX: C34.12 Malignant neoplasm of upper lobe, left bronchus or lung (principal); Z51.11 Encounter for antineoplastic chemotherapy
CPT/HCPCS: 80053; 85025; 96413; J7050; J9173

== ENCOUNTER 2025-10-26 12:56 | Outpatient (CLI) | payer MEDICARE, OTHER, SELFPAY ==
--- OUTSIDE RECORDS SUMMARY | 2024-06-20 08:45 | XMS_ITS ---
Author Organization [facility] Address [address] [facility] [address] [place] [phone] Care Team Providers Care Payment Specialist Name Role Phone Keeley Betancourt Primary Care Provider [phone] Allergies Allergen (clinical drug ingredient) Drug/Non Drug Allergy documented on EMR Reaction Allergy Type Onset Date Status cefdinir Cefdinir disoriented Drug Allergy Activ e ibandronic acid Ibandronic Acid BP high and low Drug Allergy Active moxifloxacin Moxifloxacin GI Drug Allergy A ctive Reason For Referral Reason at [facility] re[facility] Diagnosis 1 S/P hip hemiarthropl asty (Z96.649) Referral Organization [facility] Referring Provider First Name Keeley Gunn Referring Provider Last Name Serafin Referring Provider Speciality Family Pra ctice Referred Provider Physical Therapy, . Referred Provider Specialty Physical The rapist General Notes Nanci James 06/21/20 24 9:22:13 AM > faxed to scheduling at [facility] Referral Priority Routine REASON FOR VISIT f/u [...] hip hemiarthroplasty (Z96.649) Active confirmed Vital Signs Blood pressure systolic 138 mm Hg 06/20/20 24 Blood pressure diastolic 52 mm Hg 024 Heart Rate 65 /min 06/20/2024 Height 63.50 in 06/20/2024 Weight 128.3 lbs 06/20/2024 BMI 22.37 kg/m2 06/20/2024 Encounters Encounter Location Date Provider Diagnosis [facility] [address] [facility] [address] [phone] 06/20/2024 R Luis A Betancourt S/P hip [...] Referrals Referral Date Details 06/20/2024 06/20/2024, at [facility] location for post op hip replacement rehab, . Physical Therapy Next Appt Details Follow Up: as scheduled, [place] son: Provider Name:Keeley Giordano, 02/19/2026 10:45:00 AM, [address], [address], [place], [place], [phone], Progress Notes * NIHARIKA NARVAEZDOB:1950 (75 yo F)Acc No.[id number]:06/20/2024 Progress Notes Patient: NIHARIKA VILLARREAL Provider: Keeley Betancourt M.D. :1950 A ge:73 Y S ex:Female Date:06/20/2024 Address:[address] [place] [address], [place], [id number] Subjective: * Chief Complaints: * 1 . [...] to return her oxygen equipment to the [employer]. * ROS: D ERMATOLOGY: no R radha. [...] * Hospitalization/Major Diagno stic Procedure: Iveth carrion- [facility] in [place] 11/2014. * Family [...] * Images: Billing Information: * Visit Code: 12772 Office Visit, Est Pt., Level 3. * Procedure Codes: 06352 PULSE OX. * Electronic signature of Keeley Betancourt MD on 10/26/2025 at 01:01 PM EST Sign off status: Pending * Provider: Keeley Betancourt M.D. Date: 0 06/20/2024 Generated for Nithya linares/Lela/eTransmitting on: 1 12/27/2024 01:01 PM EST History and Physical Notes * [...] to return her oxygen equipment to the [employer]. Examination Category Sub-Category Detail Notes Category Not es General Examination Heart: RSR Lungs: clear to auscultatio n Extremities: no leg edema. Ambul ates slowly with a straight cane General Appearance: NAD Consultation Request Notes Referral Date Referring Provider Referred Provider Not es 06/20/2024 Keeley Betancourt Physical Therapy, . at [facility] location for post op hip replacement rehab
--- OUTSIDE RECORDS SUMMARY | 2024-08-24 05:00 | XMS_ITS ---
Author Organization [facility] Address [address] [facility] [address] [place] [phone] Care Team Providers Care Human Factors Ergonomist Name Role Phone Keeley Betancourt Primary Care Provider [phone] Allergies Allergen (clinical drug ingredient) Drug/Non Drug [...] Interpretation:304 Performing Lab: Notes/Report: Test performed by [employer] , [address], [place] [address] Gamal Haywood MD, Graduate Teaching Assistant CLIA: [id number] Vitamin B12 797 168-7886 pg/mL P-Comprehensive Metabolic Pa yoseph (CMP) Reviewed date:08/28/2024 09:43:33 PM Interpretation:Na 131, cl 92, gluc 100 Performing Lab: Notes/Report: Test performed by [employer] [address] [place] [address] , [address], [place] [address] Gamal Haywood MD, Graduate Teaching Assistant CLIA: [id number] Sodium 131 135-145 mmol/L Potassium 4.0 3.5-5.3 [...] Interpretation:17 Performing Lab: Notes/Report: Test performed by [employer] [address] [place] [address] , [address], [place] [address] Gamal Haywood MD, Graduate Teaching Assistant CLIA: [id number] Iron 17 37-145 ug/dL P-Lipid Panel Reviewed date:08/28/2024 09:43:33 PM Interpretation:Normal Performing Lab: Notes/Report: Test performed by [employer] [address] [place] [address] , [address], [place] [address] Gamal Haywood MD, Graduate Teaching Assistant CLIA: [id number] Cholesterol 162 <200 mg/dL Triglycerides 142 <150 [...] Interpretation:118 Performing Lab: Notes/Report: Test performed by [employer], [employer] [address] [place] [address] , [address], [place] [address] Gamal Haywood MD, Graduate Teaching Assistant CLIA: [id number] Vitamin D 25-Hydroxy 118.0 30.0-100.0 ng/mL Interpretation [...] lesions on face . Would prefer seeing icing machine operator in [facility] Diagnosis 1 AK (actinic keratosi s) (L57.0) Referral Organization [facility] Referring Provider First Name Keeley Gunn Referring Provider Last Name Serafin Referring Provider Speciality Family Jae price Referred Provider Dermatology, . Referred Provider Specialty Dermatology General Notes Nanci James 024 1:54:17 PM > referral submitted via [facility] website, Nanci James 08/24/2024 2:58:20 PM > appt 08/25/2024 at 10:00am in [facility] Referral Priority Routine REASON FOR VISIT 6 [...] puff(s) inhaled every 6 hours prn Active Juyl Allergy 180 MG 1 tab(s) orally o [...] Status W/U Status Risk Notes Problem Anemia (967201939) Anemia (D64.9) Active confirmed Vital Signs Blood pressure systolic 136 mm Hg 08/24/20 24 Blood pressure diastolic 60 mm Hg 024 Heart Rate 70 /min 08/24/2024 Height 63.50 in 08/24/2024 Weight 120.4 lbs 08/24/2024 BMI 20.99 kg/m2 08/24/2024 Encounters Encounter Location Date Provider Diagnosis [facility] [address] [facility] [address] [place] [phone] 08/24/2024 Keeley Betancourt Essential hypertensi on I10 [...] les ions on face. Would prefer seeing icing machine operator in [facility], . Dermatology Next Appt Details Follow Up: 6 Months, Reason: Provider Name:Keeley Giordano, 02/19/2026 10:45:00 AM, [address] [facility], [facility] [address] [facility], [address] , [place], [place], [id number], Progress Notes * LYNDAKESHANIHARIKADOB:1950 (75 yo F)Acc No.[id number]:08/24/2024 Progress Notes Patient: NIHARIKA VILLARREAL Provider: Keeley Betancourt M.D. :1950 A ge:74 Y S ex:Female Date:08/24/2024 Address:[address] [place] [phone] Subjective: * Chief Complaints: * 1 . [...] * Hospitalization/Major Diagno stic Procedure: Iveth carrion- [facility] [email or web address]] in [place] 11/2014. * Family History: F ather: , [...] 08/24/2024 2:05 :00 PM > faxed to [facility] Lori Davenport 08/29/2024 11:34:40 AM > 09/13 [...] AM)?304* Value Reference Range V itamin B12 389 802-2533 - pg/mL * Keeley Betancourt 08/28/2024 9:43:21 PM >See phone encounter 9.?AK (actinic keratosis)? Referral To:. Dermatology??Dermatology ?Reason:skin lesions on face. Would prefer seeing icing machine operator in [facility] 10.?Screening for breast cancer?Imaging: Mammogram (Performed Date - 09/13/2024)?Negative, annual f/u* Value Reference Range r esult Negative, annual f/u * Nanci James 08/24/2024 2:05 :11 PM > faxed to [facility] Lori Davenport 08/29/2024 11:34:56 AM > 09/13 @ 3:15WuIsa harrison 09/18/2024 4:06:24 PM > pt informed of results * Immunizations: Fluzone High Dose (65yr and older) : 0.5 mL (Route: Intramuscular) given by Isa Araiza on Left Deltoid (Encounter for immunization) * Procedure Codes: 9 4760 [place], [address] CBC WITH AUTO DIFF, 75168 VENIPUNCT, ROUTINE* * Follow Up: 6 Months * Images: Billing Information: * Visit Code: 22595 Office Visit, Est Pt., Level 4. * Procedure Codes: [address] [place]. [address] CBC WITH AUTO DIFF. 04896 VENIPUNCT, ROUTINE*. * Electronic signature of Keeley Betancourt MD on 10/26/2025 at 01:00 PM EST Sign off status: Pending * Provider: Keeley Betancourt M.D. Date: Generated for Johni milagros/Lela/eTransmitting on: 12/27/2024 01:00 PM EST History and Physical Notes * [...] les ions on face. Would prefer seeing icing machine operator in [facility]
--- OUTSIDE RECORDS SUMMARY | 2024-09-13 09:20 | XMS_ITS ---
Author Organization [facility] Address [address] [facility] [address] [phone] Care Team Providers Care Dry End Operator Name Role Phone Keeley Betancourt Primary Care [...] Active Encounters Encounter Location Date Provider Diagnosis [facility] [address]10 [facility] [address] [facility] [address] [place], [place] [phone] 09/13/2024 Keeley Betancourt Anemia D64.9 Assessments Encounter Date Diagnosis (ICD Code) Assessment Notes Treatment Notes Treatment Clinical Notes Section Notes 09/13/2024 Anemia (ICD-10 - D64.9) Plan Of Treatment Next Appt Details Provider Name:Keeley Giordano, 02/19/2026 10:45:00 AM, [address] [facility] [address] [facility], [address], [place], [place], [phone], Progress Notes * NIHARIKA NARVAEZDOB:1950 (75 yo F)Acc No.[id number]:09/13/2024 Patient: Chery TORRES NIHARIKA Provider: Keeley Betancourt M.D. :1950 A ge:74 Y S ex:Female Date:09/13/2024 Address:[address] [place], [place] [address] [id number] Subjective: * Chief Complaints: * 1 . [...] Information: * Visit Code: * Procedure Codes: 57512 ASSAY TEST FOR BLOOD, FECAL. Modifiers: QW * Electronic signature of Keeley Betancourt MD on 10/26/2025 at 01:01 PM EST Sign off status: Pending * Provider: Keeley Betancourt M.D. Date: 11/13/2023 Generated for Nithya linares/Lela/Jackiitting on: 12/27/2024 01:01 PM EST
--- OUTSIDE RECORDS SUMMARY | 2024-10-03 08:30 | XMS_ITS ---
Author Organization [facility] Address [address] [facility] [address] [place] [phone] Care Team Providers Care Data Designer Name Role Phone Keeley Betancourt Primary Care Provider [phone] Allergies Allergen (clinical drug ingredient) Drug/Non Drug [...] Status Risk Notes Problem Iron deficiency anemia (59449722) Iron deficiency anemia (D50.9) Active confirmed Vital Signs Blood pressure systolic 120 mm Hg 10/03/20 24 Blood pressure diastolic 60 mm Hg 024 Heart Rate 75 /min 10/03/2024 Height 63.50 in 10/03/2024 Weight 120.6 lbs 10/03/2024 BMI 21.03 kg/m2 10/03/2024 Encounters Encounter Location Date Provider Diagnosis [facility] [address] [facility] [address] [phone] 10/03/2024 Keeley Betancourt Iron deficiency anem ia [...] [address], [address], [place], [place], [phone], Progress Notes * NIHARIKA NARVAEZDOB:1950 (75 yo F)Acc No.[id number]:10/03/2024 Progress Notes Patient: NIHARIKA VILLARREAL Provider: Keeley Betancourt M.D. :1950 A ge:74 Y S ex:Female Date:10/03/2024 Address:[address] [place] [address], [place], [id number] Subjective: * Chief Complaints: * 1 . [...] * Hospitalization/Major Diagno stic Procedure: Iveth luisyaakov- [facility] in [place] 11/2014. * Family History: F ather: , [...] G 2211 Complex e/[place], [address] CAPILLARY BLOOD DRAW, 33677 CBC WITH AUTO DIFF * Follow Up: 6 Months * Images: Billing Information: * Visit Code: 50610 Office Visit, Est Pt., Level 3. * Procedure Codes: G2211 Complex e/[place]. [address] CAPILLARY BLOOD DRAW. 76157 CBC WITH AUTO DIFF. * Electronic signature of R Cheng Betancourt MD on 10/26/2025 at 01:01 PM EST Sign off status: Pending * Provider: Keeley Betancourt M.D. Date: 12/03/2023 Generated for Nithya linares/Lela/Aneesh on: 12/27/2024 01:01 PM EST History and Physical [...]
--- OUTSIDE RECORDS SUMMARY | 2025-02-15 04:15 | XMS_ITS ---
Author Organization [facility] Address [address] [facility] [address] [place] [phone] Care Team Providers Care Bucket Pusher Name Role Phone Keeley Betancourt Primary Care [...] Interpretation: Performing Lab: Notes/Report: Test performed by [employer] [address] [place] [address] , [address], [place] [address] Gamal Haywood MD, Correctional Security Officer CLIA: [id number] Vitamin B12 497 473-1116 pg/mL P-Comprehensive Metabolic Pa yoseph (CMP) Reviewed date:02/20/2025 09:44:27 PM Interpretation: Performing Lab: Notes/Report: Test performed by [employer] [address] [place] [address] , [address], [place] [address] Gamal Haywood MD, Correctional Security Officer CLIA: [id number] Sodium 137 135-145 mmol/L Potassium 3.7 3.5-5.3 [...] Interpretation: Performing Lab: Notes/Report: Test performed by [employer] [address] [place] [address] , [place] [id number] Gamal Haywood MD, Correctional Security Officer CLIA: [id number] Iron 140 37-145 ug/dL P-Lipid Panel Reviewed date:02/20/2025 09:44:27 PM Interpretation: Performing Lab: Notes/Report: Test performed by [employer] [address] [place] [address] , [address], [place] [address] Gamal Haywood MD, Correctional Security Officer CLIA: [id number] Cholesterol 163 <200 mg/dL Triglycerides 106 <150 [...] Interpretation: Performing Lab: Notes/Report: Test performed by [employer] [address] [facility] [address], [place] [address] Gamal Haywood MD, Correctional Security Officer CLIA: [id number] TSH 2.17 0.43-5.25 mU/L P-Microalbumin/Creatinine, R andom Urine Sample Reviewed date:02/20/2025 09:44:27 PM Interpretation: Performing Lab: Notes/Report: Test performed by [employer] [address] [facility] , [address], [place] [address] Gamal Haywood MD, Correctional Security Officer CLIA: [id number] Albumin/Creatinine Ratio, Urine 18 0-30 ug/m g Microalbumin, Urine, Random 1.4 Creatinine, Urine 77.8 Reason For Referral Reason Dr. José Miguel [place] for PAD, carotid disease; dilated left atrium Diagnosis 1 PAD (peripheral beryl ry disease) (I73.9) [facility] Referring Provider First Name Keeley Gunn Referring Provider Last Name Serafin Referring Provider Speciality Family [facility][note 3]ice Referred Provider Cardiology, . Referred Provider Specialty Cardiovascul ar Disease General Notes Nanci James 2024 10:46:57 AM > faxed to [place] office as he does not have a [place] number Referral Priority Routine REASON FOR VISIT [...] Status Risk Notes Problem Vitamin B12 deficiency (514640938) Vitamin B12 deficiency (E53.8) Active confirmed Problem Osteoporosis (31630694) Osteoporosis, unspecified (M81.0) Active confirmed Vital Signs Blood pressure systolic 120 mm Hg 02/16/20 25 Blood pressure diastolic 60 mm Hg 025 Height 63.50 in 02/15/2025 Weight 110.4 lbs 02/15/2025 BMI 19.25 kg/m2 02/15/2025 Encounters Encounter Location Date Provider Diagnosis [facility] [address] [facility] [address] [place], [place] [phone] 02/15/2025 Keeley Betancourt Adult general medica l examination Z00.00 [...] Details 02/16/2025 02/16/2025, Dr. Guera Abdi in [place] for PAD, carotid disease; dilated left atrium , . Cardiology Next Appt Details Follow Up: 6 Months, Reason: Provider Name:Keeley Giordano, 02/19/2026 10:45:00 AM, [address] [facility] [address] [facility], [address] , [place], [place], [phone], Progress Notes * NIHARIKA NARVAEZDOB:1950 (75 yo F)Acc No.[id number]:02/15/2025 Annual Wellness Visit Patient: Chery VELKESHA NIHARIKA Provider: Keeley Betancourt M.D. :1950 A ge:74 Y S ex:Female Date:02/15/2025 Address:[address] [place], [place] [id number] Subjective: * Chief Complaints: * 1 . 6 months and AWV. * HPI: H PI: Patient is here today for a scheduled 6 month c heck up and a Medicare Annual Wellness Visit. Pt is fasting. C ardiology: She is just returned from wintering in [place]. She reports having some intermittent swelling in her feet and ankles while in [place]. She also complains of some exertional dyspnea. [...] * Hospitalization/Major Diagno stic Procedure: Iveth carrion- [facility] in [place] 11/2014. * Family History: F ather: , [...] Cardiology??Cardiovascular Disease ?Reason:Dr. José Miguel Abdi in [place] for PAD, carotid disease; dilated left atrium [...] AM)* Value Reference Range V itamin B12 692 602-5667 - pg/mL * Keeley Betancourt 02/20/2025 09:44:09 [...] OF ACTIVITY ASSESS, 4040F PNEUMOC IMM ORDER/ADMIN, 58962 CBC WITH AUTO DIFF, 1125F AMNT PAIN [...] * Images: Billing Information: * Visit Code: 80373 Office Visit, Est Pt., Level 3. Modifiers: 25 * Procedure Codes: G0439 ANNUAL WELLNESS VST; PPS SUBSQT VST. G2211 Complex e/m visit add on. G044 ANNUAL DEPRESSION SCREENING 15 MIN. 1090F PRES/ABSN URINE INCON ASSESS. 3288F FALL RISK ASSESSMENT DOCD. 1170F FXNL STATUS ASSESSED. 1159F MED LIST DOCD IN RCRD. 1003F LEVEL OF ACTIVITY ASSESS. 4040F PNEUMOC IMM ORDER/ADMIN. 86339 CBC WITH AUTO DIFF. 1125F AMNT PAIN NOTED PAIN PRSNT. G8510 NEG SCR Depression PT NOT ELIG F/U/PLN DOC. 3074F SYST BP LT 130 MM HG. 3078F DIAST BP < 80 MM HG. * Electronic signature of Keeley Betancourt MD on 10/26/2025 at 12:59 PM EST Sign off status: Pending * Provider: Keeley Betancourt M.D. Date: 0 02/15/2025 Generated for Nithya milagros/Lela/eTransmitting on: 1 12/27/2024 12:59 PM EST History and Physical Notes [...] Betancourt Cardiology, . Dr. Mik Abdi in [place] for PAD, carotid disease; dilated left atrium
--- OUTSIDE RECORDS SUMMARY | 2025-04-12 09:15 | XMS_ITS ---
Author Organization [facility] Address [address] [facility] [address] [place] [phone] Care Team Providers Care Payroll Supervisor Name Role Phone Keeley Betancourt Primary Care [...] Hose 1 DIRECTED 11/10/2018 Active Vital Signs Blood pressure systolic 120 mm Hg 04/12/20 25 Blood pressure diastolic 70 mm Hg 025 Height 63.50 in 04/12/2025 Weight 110.2 lbs 04/12/2025 BMI 19.21 kg/m2 04/12/2025 Encounters Encounter Location Date Provider Diagnosis [facility] [address] [phone] 04/12/2025 Keeley Betancourt Tobacco use disorder F17.200 [...] [address], [address], [place], [place], [phone], Progress Notes * NIHARIKA NARVAEZDOB:1950 (75 yo F)Acc No.[id number]:04/12/2025 Progress Notes Patient: NIHARIKA VILLARREAL Provider: Keeley Betancourt M.D. :1950 A ge:74 Y S ex:Female Date:04/12/2025 Address:[address] [place] [address], [id number] Subjective: * Chief Complaints: * 1 . [...] Diagno stic Procedure: Iveth carrion- [facility] in [place] 11/2014. * Family History: F [...] * Images: Billing Information: * Visit Code: 02635 Office Visit, Est Pt., Level 3. * [...] 04/12/2025 Generated for Nithya linares/Lela/Aneesh on: 1 12/27/2024 01:00 PM EST History and Physical Notes * Examination Category Sub-Category Detail Notes Category Not es General Examination Heart: RSR Lungs: Breath sounds are ge nerally diminished but otherwise clear. General Appearance: NAD
--- OUTSIDE RECORDS SUMMARY | 2025-08-21 04:00 | XMS_ITS ---
Author Organization [facility] Address [address] [facility] [address] [place] [id number] Care Team Providers Care Stove Bottom Worker Name Role Phone Keeley Betancourt Primary [...] Interpretation:normal Performing Lab: Notes/Report: Test performed by [employer] [address] [place], [place] [address] , [address], [place] [address] Gamal Haywood MD, Manager Requirements CLIA: [id number] Sodium 135 135-145 mmol/L Potassium 4.8 3.5-5.3 [...] Interpretation:Abnormal Performing Lab: Notes/Report: Test performed by YouTube [address] [place] [address] , [address], [place] [address] Gamal Haywood MD, Manager Requirements CLIA: [id number] Specimen Source Urine - Void Culture, Urine See Below See Microbiol ogy Report Pseudomonas aeruginosa 50,000-100,000 CF U/ml Pseudomonas aeruginosa Non-viable for sensitivities P-Lipid Panel Reviewed date:08/22/2025 11:35:09 AM Interpretation:LDL 76 Performing Lab: Notes/Report: Test performed by YouTube [address] [place], [place] [address] , [address], [place] [address] Gamal Haywood MD, Manager Requirements CLIA: [id number] Lipid Panel Footnote See Below *Based on optimal reference values. Please refer to the DOS for additional information regarding diagnostic lipid reference ranges, patient management based on the recently updated lipid guidelines ([place] [employer]/[place] Heart Association Task Force on Clinical Practice [...] Risk Notes Problem Small cell lung cancer (256351304) Small cell lung cancer (C34.90) Active confirmed Vital Signs Blood pressure systolic 120 mm Hg 08/21/20 25 Blood pressure diastolic 60 mm Hg 025 Heart Rate 42 /min 08/21/2025 Height 63.50 in 08/21/2025 Weight 120 lbs 08/21/2025 BMI 20.92 kg/m2 08/21/2025 Encounters Encounter Location Date Provider Diagnosis [facility] [address] [place], [place] [id number] 08/21/2025 Keeley Betancourt Essential hypertensi on I10 [...] Brannon, Dr. Rojas, and radiation oncology in [place]. 08/21/2025 Dyslipidemia (ICD-10 - E78.5) 08/21/2025 Primary [...] Brannon, Dr. Rojas, and radiation oncology in [place]. Next Appt Details Follow Up: 6 Months, Reason: Provider Name:Keeley Giordano, 02/19/2026 10:45:00 AM, [address] [facility], [address] , [place], [place], [id number], Progress Notes * NIHARIKA NARVAEZDOB:1950 (75 yo F)Acc No.[id number]:08/21/2025 Progress Notes Patient: S NIHARIKA TORRES Provider: Keeley Betancourt M.D. :1950 A ge:75 Y S ex:Female Date:08/21/2025 Address:[address], [id number] Subjective: * Chief Complaints: * 1 . [...] Rojas and also with radiation oncology in [place]. Her brain MRI and CT scan of [...] Iveth carrion- [facility] in [place] 11/2014. * Family History: F ather: , [...] for immunization - Z23 1 7. B [place] 20.0-20.9, adult - Z68.20? Plan: * Treatment: [...] [place] 08/21/2025 01:04:22 PM EDT > Keeley Betancuort 08/22/2025 11:34:56 AM EDT > See phone encounter 2.?Small cell lung cancer? Notes: Continue follow-up with Dr. Brannon, Dr. Rojas, and radiation oncology in [place].? 3.?Dyslipidemia? Refill Atorvastatin Calcium Tablet, 40 MG, [...] (Route: Intramuscular) given by ALEX Moss , Rubber Press Operator on Left Deltoid (Encounter for immunization) * [...] G 2211 Complex e/[place], [address] CBC WITH AUTO DIFF, 09905 Urinalysis, no micro, G8950 PREHTN/HTN BP DOC INDCD F/U DOC, G8752 MOST RECENT SYSTOLIC BP < 140MM HG, G8754 MOST RECENT DIASTOLIC BP < 90MM HG, 3074F SYST BP LT 130 MM HG, 3078F DIAST BP < 80 MM HG, G8420 BMI<30 AND >=22 CALC & DOCU * Follow Up: 6 Months * Images: Billing Information: * Visit Code: 27308 Office Visit, Est Pt., Level 4. * Procedure Codes: G2211 Complex e/[place]. [address] CBC WITH AUTO DIFF. 46883 Urinalysis, no micro. G8950 PREHTN/HTN BP DOC [...] M.D. Date: Generated for Nithya linares/Lela/eTransmitting on: 12/27/2024 01:01 PM EST History and [...] Rojas and also with radiation oncology in [place]. Her brain MRI and CT scan of [...]
--- OUTSIDE RECORDS SUMMARY | 2025-09-27 06:50 | XMS_ITS ---
Author Organization [facility] Address [address] [facility] [address] [place] [phone] Care Team Providers Care Carpenter Helper Name Role Phone Keeley Betancourt Primary Care [...] Notes/Report: no fracture REASON FOR VISIT F/U [facility] Medications Medication SIG (Take, Route, Frequency, Duration) [...] lly once a day Active Vital Signs Blood pressure systolic 122 mm Hg 09/27/20 25 Blood pressure diastolic 68 mm Hg 025 Heart Rate 68 /min 09/27/2025 Height 63.50 in 09/27/2025 Weight 121 lbs 09/27/2025 BMI 21.1 kg/m2 09/27/2025 Encounters Encounter Location Date Provider Diagnosis [facility] [address] [facility] [address] [place], [place] [phone] 09/27/2025 R Luis A Serafin Fall W19.XXXA [...] [address], [address], [place], [place], [id number], Progress Notes * NIHARIKA NARVAEZDOB:1950 (75 yo F)Acc No.[id number]:09/27/2025 Patient: Chery TORRES NIHARIKA Provider: Keeley Betancourt M.D. :1950 A ge:75 Y S ex:Female Date:09/27/2025 Address:[address] [place] [address], [id number] Subjective: * Chief Complaints: * 1 . F/U [facility]. * HPI: H PI: Patient is here today for a Transition of Care Visit. Discharge from the following Facility: Patient was admitted to [facility] on 09/14/2025 with Acute on [...] * Hospitalization/Major Diagno stic Procedure: Iveth carrion- [facility] in [place] 11/2014. * Family History: F [...] * Images: Billing Information: * Visit Code: 31383 Office Visit, Est Pt., Level 3. * Procedure Codes: 97016 TRANS CARE MGMT 14 DAY DISCH. 1111F DSCHR MED/CURENT MED MERGE. G2211 Complex e/m visit add on. * Electronic signature of Keeley Betancourt MD on 10/26/2025 at 01:00 PM EST Sign off status: Pending * Provider: Keeley Betancourt M.D. Date: 11/27/2024 Generated for Nithya linares/Lela/Jackiitting on: 12/27/2024 01:00 PM EST History and Physical Notes * HPI (History of Present Illness) Category Sub-Category Detail Notes Category Not es HPI Patient is here toda y for a Transition of Care Visit. Discharge from the following Facility: Patient was admitted to [facility] on 09/14/2025 with Acute on [...]
--- OUTSIDE RECORDS SUMMARY | 2025-10-26 13:00 | XMS_ITS | Clinical Summary ---
Author Organization [facility] Address [address] [place] [address] Care Team Providers Care Illuminator Name Role Phone Tariq Betancourt MD Primary Care Provider [phone] Stan Leroy MD Unavailable Allergies No known active allergies Medications benazepril [...] Department Care Team Description 08/30/2025 Orders Only [facility] at [address] [address] Stan Leroy MD from Last [...] or (1 - 1-dose 75+ series) 2023 BFT-[id number]-17 Vaccine (6 - 2024- season) 2025 08/25/2022, 06/18/2022, 09/11/2021, Additional history exists [facility]-Influenza Vaccine (#1) 07/09/202508/14, 08/15/2021, 08/23/2020, Additional history exists [facility]-Pneumococcal Vaccine: 50+ Years Completed 08/26/2023, 03/09/2017 HPV Vaccines (No Doses Required) Completed [facility]-HIB Vaccines Aged Out No longer e [...] ult from Last 3 Months Insurance MEDICARE Member Subscriber Plan / Payer (Ef fective 2013-Present) Name:Antonia Pickens Member ID:[id number] Relation to Subscriber:Self Name:Antonia Pickens Subscriber ID:[id number] Payer ID:MEDICARE Group ID:Not on file Type:Medicare Address: [address] [facility] Care Teams Illuminator Relationship Specialty Start Date End Date Tariq Betancourt MD [address] [facility] [address] [address] PCP - General 03/21/21 Stan Leroy MD [address] [place] [address] Medical Oncologist Hematology and Oncology 04/10/24 BAYLEE Henao [address] [place] [address] Referring Physician Orthopaedic Surgery 04/07/24
--- OUTSIDE RECORDS SUMMARY | 2025-10-26 13:00 | XMS_ITS | Patient Health Record ---
Author Organization [facility] Address [address] [facility] [address] [place] [id number] Care Team Providers Care Carpenter Mate Name Role Phone Keeley Betancourt Primary Care Provider [phone] Allergies Allergen (clinical drug ingredient) Drug/Non Drug [...] Interpretation: Performing Lab: Notes/Report: Test performed by [facility] , [address], [place] [address] Gamal Haywood MD, Last Waxer CLIA: [id number] Vitamin B12 559 620-9396 pg/mL P-Comprehensive Metabolic Pa yoseph (CMP) Reviewed date:02/20/2025 09:44:27 PM Interpretation: Performing Lab: Notes/Report: Test performed by [facility] [address] [place] [address] , [place] [address] Gamal Haywood MD, Last Waxer CLIA: [id number] Sodium 137 135-145 mmol/L Potassium 3.7 3.5-5.3 [...] Interpretation: Performing Lab: Notes/Report: Test performed by [facility] [address] [place] [address] , [place] [address] Gamal Haywood MD, Last Waxer CLIA: [id number] Iron 140 37-145 ug/dL P-Lipid Panel Reviewed date:02/20/2025 09:44:27 PM Interpretation: Performing Lab: Notes/Report: Test performed by [facility] [address] [place] [address] , [place] [address] Gamal Haywood MD, Last Waxer CLIA: [id number] Cholesterol 163 <200 mg/dL Triglycerides 106 <150 [...] Interpretation: Performing Lab: Notes/Report: Test performed by [facility], [facility] [address] [place] [address] Jose Juan Cartagena, [place] [address] Gamal Haywood MD, Last Waxer CLIA: [id number] TSH 2.17 0.43-5.25 mU/L P-Microalbumin/Creatinine, R andom Urine Sample Reviewed date:02/20/2025 09:44:27 PM Interpretation: Performing Lab: Notes/Report: Test performed by [facility] [address] [place] [address] , Jose Juan C, [place] [address] Gamal Haywood MD, Last Waxer CLIA: [id number] Albumin/Creatinine Ratio, Urine 18 0-30 ug/mg Microalbumin, Urine, Random 1.4 Creatinine, Urine 77.8 P-Lipid Panel Reviewed date:08/22/2025 11:35:09 AM Interpretation:LDL 76 Performing Lab: Notes/Report: Test performed by [facility] [address] [place] [address] , Jose Juan C, [place] [address] Gamal Haywood MD, Last Waxer CLIA: [id number] Lipid Panel Footnote See Below *Based on optimal reference values. Please refer to the DOS for additional information regarding diagnostic lipid reference ranges, patient management based on the recently updated lipid guidelines ([place] [employer]/[place] [employer] Association Task Force on Clinical Practice [...] 76 Units: mg/dL % Change: -13% ____ P-Culture, Urine Reviewed date:08/27/2025 10:01:44 AM Interpretation:Abnormal Performing Lab: Notes/Report: Test performed by [facility] [address] [place], [place] [address] [place] [address] Gamal Haywood MD, Last Waxer CLIA: [id number] Specimen Source Urine - Void Culture, Urine See Below See Microbiol ogy Report Pseudomonas aeruginosa 50,000-100,000 CF U/ml Pseudomonas aeruginosa Non-viable for sensitivities P-Comprehensive Metabolic Pa yoseph (CMP) Reviewed date:08/22/2025 11:35:09 AM Interpretation:normal Performing Lab: Notes/Report: Test performed by [facility] [address] [place], [place] [address] [place] [address] Gamal Haywood MD, Last Waxer CLIA: [id number] Sodium 135 135-145 mmol/L Potassium 4.8 3.5-5.3 [...] - 38 platlet 392 100 - 400 Urinalysis - Inhouse Reviewed date:08/22/2025 11:35:09 AM Interpretation: Performing Lab: Notes/Report: Color/Clarity yellow Leuk neg Nitrite neg Urobili neg Protein 1.020 pH neg Blood 7.6 Sp. Gr. neg Ketone 16 Bili neg Gluc 1+ CT Scan : Chest, low dose Reviewed date:05/10/2025 08:10:22 AM Interpretation:Abnormal Performing Lab: Notes/Report: Abnormal X ray : ribs left Reviewed date:10/01/2025 09:16:47 PM Interpretation:no fracture Performing Lab: Notes/Report: no fracture Reason For Referral Reason Dr. José Miguel Reyes for PAD, carotid disease; dilated left atrium Diagnosis 1 PAD (peripheral beryl ry disease) (I73.9) Referral Organization [facility] Referring Provider First Name Keeley Gunn Referring Provider Last Name Serafin Referring Provider Speciality [facility] ctice Referred Provider Cardiology, . Referred Provider Specialty Cardiovascul ar Disease General Notes Nanci James 2024 10:46:57 AM > faxed to [place] office as he does not have a [facility] number Referral Priority Routine Reason Lung mass on chest C T Diagnosis [address] (R 93.89) Referral Organization [facility] Referring Provider First Name Keeley Gunn Referring Provider Last Name Serafin Ref[facility]erred [facility] OP Referred Provider Bartolome Brannon Referred Address [address] [address] [address] Andie beltran,[place],[id number], Referred Provider Specialty Pulmonary Di seases General Notes Nanci James 2024 08:41:46 AM > faxed to [facility] Pulmonology, Nanci James 05/17/2025 03:40:56 PM > 05/15/2025 Referral Priority Routine Medications Medication SIG (Take, Route, Frequency, Duration) Notes Start Date End Date Status Oxygen Conserving Device - as directed - as directed 10/24/2025 Active Oxygen Concentrator as directed 10/24/2025 Active Oxygen - 2 L per nasal cannul a as directed C34.90 Small Cell Lung Cancer 10/24/2025 Active Calcium + Vitamin D3 600-5 MG-MCG 1 tab(s) orally TID Active Nabumetone 500 MG 1 tablet Orally Twic e a day; Duration: 30 day(s) Active Megestrol Acetate 40 MG/ML 10ml Orally Once a day Active Aspir-Low 81 MG 1 tab(s) orally once a day; Duration: 30 day(s) Active Omeprazole 40 MG 1 cap(s) orally once a day; Duration: 30 day(s) 11/28/2020 Active Nitroglycerin 0.4 MG 1 tab(s) sublingual ly every 5 minutes prn chest pain 11/28/2020 Active CareTouch CPAP & BIPAP Hose 1 DIRECTED 11/10/2018 Active Ferrous Sulfate 325 (65 Fe) MG 1 tablet Orally once daily 08/28/2024 Active Vitamin D3 25 MCG (1000 UT) 1 capsule orally once a day Active July Allergy 180 MG 1 tab(s) orally o nce a day 02/21/2021 Active traMADol HCl 50 MG 1 or 2 tabs Orally q6h prn 09/27/2025 Active Atorvastatin Calcium 40 MG 1 tablet at bedtime Orally Once a day; Duration: 90 days Active Alendronate Sodium 70 MG 1 tab(s) orally once a week; Duration: 90 days Active Albuterol Sulfate HFA 108 (90 Base) MCG/ACT INHALE 2 PUFFS BY MOUTH EVERY 6 HOURS NEEDED; Duration: 25 Active amLODIPine Besylate 10 MG 1 tab(s) Orally once a day Active Metoprolol Succinate 100 MG 1 tab(s) orally once a day Active Benazepril HCl 40 MG 1 tab(s) orally onc e a day Active Flonase Allergy Relief 50 MCG/ACT 2 spray(s) intranasally once a day Active predniSONE 20 MG 1 tablet with food o r milk Orally Once a day Active DULoxetine HCl 60 MG 1 capsule Orally On ce a day; Duration: 90 days Active Clopidogrel Bisulfate 75 MG 1 tab(s) orally once a day Active Furosemide 40 MG 1/2 tab(s) orally once a day Active Immunizations Vaccine Route Administration Date Status [...] Status Risk Notes Problem Vitamin D deficiency (70091814) Vitamin D deficiency (E55.9) Active confirmed Problem Vitamin B12 deficiency (889924679) Vitamin B12 deficiency (E53.8) Active confirmed Problem Anemia (470549425) Anemia (D64.9) Active confirmed Problem Essential hypertension (70330943) Essential hypertension (I10) Active confirmed Problem Abnormal mammogram (648712021) Abnormal mammogram (R92.8) Active confirmed Problem Seasonal allergy (153283953) Seasonal allergies (J30.2) Active confirmed Problem Iron deficiency anemia (48786676) Iron deficiency anemia (D50.9) Active confirmed Problem Primary osteoarthritis (055178267) Primary osteoarthritis involving multiple joints (M15.0) Active confirmed Problem COPD - Chronic obstructive pulmonary disease (45981744) Chronic obstructive pulmonary disease, unspecified COPD type (J44.9) Active confirmed Problem Obstructive sleep apnea syndrome (80109324) FRANSISCO (obstructive sleep apnea) (G47.33) Active confirmed Problem Localized, primary osteoarthritis of the pelvic region and thigh (927440791) 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) Active confirmed Problem Tobacco user (841121336) Cigarette nicotine dependence without complication (F17.210) Active confirmed Problem Dyslipidemia (340579004) Dyslipidemia (E78.5) Active confirmed Problem Peripheral vascular disease (036164721) PAD (peripheral artery disease) (I73.9) Active confirmed Problem Tobacco use (440614171) Tobacco use disorder (F17.200) Active confirmed Problem Age-related osteoporosis (352523397) Osteoporosis without current pathological fracture, unspecified osteoporosis type (M81.0) Active confirmed Problem Osteoporosis (42908387) Osteoporosis, unspecified (M81.0) Active confirmed Problem Ex-smoker (finding) (9534792) History of cigarette smoking (Z87.891) Active confirmed Problem Left carotid artery occlusion (092628243335144) Left carotid stenosis (I65.22) Active confirmed Problem Small cell lung cancer (278507391) Small cell lung cancer (C34.90) Active confirmed Problem S/P hip hemiarthroplasty (Z96.649) Active confirmed Vital Signs Heart Rate 68 /min 09/27/2025 Blood pressure diastolic 68 mm Hg 09/27/2025 Height 63.50 in 09/27/2025 Blood pressure systolic 122 mm Hg 09/27/2025 Weight 121 lbs 09/27/2025 BMI 21.1 kg/m2 09/27/2025 Encounters Encounter Location Date Provider Diagnosis [facility] [address] [id number] [facility] Z00.00 ; [...] in adult Z68.1 and Osteoporosis, unspecified M81.0 [facility] [address] [place] [id number] 04/12/2025 Luis A [place] Tobacco use disorder F17.200 ; Chronic obstructive pulmonary disease, unspecified COPD type J44.9 ; Atelectasis of both lungs J98.11 and FRANSISCO (obstructive sleep apnea) G47.[address] [place] [id number] 08/21/2025 R Luis A Serafin Essential hypertensi on I10 ; Chronic obstructive [...] immunization Z23 and BMI 20.0-20.9, adult Z68.20 [facility] [address] [place] [id number] 09/27/2025 R Luis A Serafin Fall W19.XXXA ; Rib pain R07.81 ; Small cell lung cancer C34.90 and Chronic obstructive pulmonary disease, unspecified COPD type J44.9 [facility] [address] [place], [place] [id number] 09/03/2025 R Luis A Serafin [facility] [address] [place], [place] [id number] 02/20/2025 R Luis A Serafin [facility] [address] [place] [id number] 05/07/2025 R Luis A Serafin Abnormal chest CT R9 3.89 [facility] [address] [place] [id number] 08/22/2025 R Luis A Serafin [facility] [address] [place], [place] [id number] 08/27/2025 R Luis A Serafin [facility] [address] [place] [id number] 09/04/2025 R Luis A Serafin Dyslipidemia E78.5 [facility] [address] [place] [id number] 09/18/2025 R Luis A Gomezeet [facility] [address] [place], [place] [id number] 09/21/2025 R Luis A Serafin [facility] [address] [place], [place] [id number] 09/25/2025 R Luis A Serafin [facility] [address] [place], [place] [id number] 09/28/2025 R Luis A Serafin [facility] [address] [place], [place] [id number] 10/22/2025 R Luis A Serafin Assessments Encounter Date Diagnosis (ICD Code) Assessment Notes Treatment Notes Treatment Clinical Notes Section Notes 02/15/2025 Essential hypertension (ICD-10 - I10) 02/15/2025 [...] - J44.9) 09/04/2025 Dyslipidemia (ICD-10 - E78.5) 09/27/2025 Fall (ICD-10 - W19.XXXA) 09/27/2025 Rib pain (ICD-10 - R07.81) 09/27/2025 Small cell lung cancer (ICD-10 - C34.90) 08/21/2025 Small cell lung cancer (ICD-10 - C34.90) Continue follow-up with Dr. Brannon, Dr. Rojas, and radiation oncology in [place]. 04/12/2025 Atelectasis of both lungs (ICD-10 - J98.11) 02/15/2025 Dyslipidemia (ICD-10 - E78.5) 02/15/2025 Chronic obstructive pulmonary disease, unspecified COPD type (ICD-10 - J44.9) 04/12/2025 FRANSISCO (obstructive sleep apnea) (ICD-10 - G47.33) 08/21/2025 Dyslipidemia (ICD-10 - E78.5) 09/27/2025 Chronic obstructive pulmonary disease, unspecified COPD type (ICD-10 - J44.9) 08/21/2025 Primary osteoarthritis involving multiple joints (ICD-10 [...] Z68.1) 02/15/2025 Osteoporosis, unspecified (ICD-10 - M81.0) 09/27/2025 Other Discharge summary with available lab/diagnostic imaging results obtained and reviewed. Discharge medication list reconciled. Appropriate counseling provided. Moderate Complexity Plan Of Treatment Next Appt Details Provider Name:Keeley Giordano, 02/19/2026 10:45:00 AM, [address] [facility], [address], [place], [place], [id number], Insurance Providers Payer Name Payer Address Payer Phone Subscriber Number Group Number Insured Name Patient Relationship to Insured Coverage Start Date Coverage End Date MEDICARE PART B [address] [address] [place] [id number] NIHARIKA NARVAEZ Self - [place] [id number] NIHARIKA NARVAEZ Self - patient is the [...] Surgery Date(Month/Year) ruptered disc/back surgery 1993 tubal 1976 carpal tunnel 2000 Colonoscopy/Dr. Garibay/polyp 09/2010 ORIF left femur fracture 10/2017 left hip replacement - Dr. Chung 04/2018 Stent placement both legs 03/2021 Cataract Surgery 05/2022 Right Hip Replacement Total 05/02/2024 EGD/ Dutch/ Gr 1 esophageal varices 2024 Heart cath/ [place]/ minor blockages. no intervention 06/2025 Hospitalization History Reason Date(Month/Year) Bronchitis- [facility] in [place] 11/2014
--- OUTSIDE RECORDS SUMMARY | 2025-10-26 13:01 | XMS_ITS | Clinical Summary ---
Author Organization [employer] ([place], [place], [place], [place], [place]) Address [address] [place] [address] Care Team Providers Care Activities Counselor Name Role Phone Ezequiel Houston MD Primary [...] the past 12 months, has t he [employer], gas, oil, or water [employer] threatened to shut off services in your [...] your living situation today? I have a [facility] place to live 05/02/2024 Think [...] Do you speak a language other than I[place]ian at [facility]? No 05/02/2024 Do you want help [...] years Completed 08/26/2023, 2016 Insurance [place] [id number] [place] [address] [place] [address] Advance Directives For more information, please contact: [phone] * Full Code (Latest Code Status on File) Date Activated Date Inactivated Comments 05/02/2024 8:35 PM 05/03/2024 7:01 PM -Attempt Res uscitation if person has no pulse and is not breathing. -If no pulse or not breathing attempt CPR/CODE. -Call Rapid Response if patient is in distress. Care Teams Activities Counselor Relationship Specialty Start Date End Date Ezequiel Houston MD PCP - General Orthopedic Surgery 05/02/24
--- OUTSIDE RECORDS SUMMARY | 2025-10-26 13:01 | XMS_ITS | Encounter Summary ---
Author Organization [facility] Address [address] [place] [address] Care Team Providers Care Legal Manager Name Role Phone Tariq Betancourt MD Primary Care Provider Encounter Details Date Type Department Care Team (Late st Contact Info) Description 07/06/2025 Results Follow-Up [facility] C[facility]Y [address] [facility] [address] [place] [address] José Miguel Abdi MD [address] [place] [address] Social History Tobacco Use Types Packs/Day Years [...] Description 06/24/2026 10:30 AM EDT Office Visit [facility] [address] [facility] [facility] [place] [address] José Miguel Abdi MD [address] [place] [address] documented as of this encounter Visit Diagnoses Not on filedocumented in this encounter Care Teams Legal Manager Relationship Specialty Start Date End Date Tariq Betancourt MD [address] [facility] [address] [place] [address] PCP - General Family Medicine 03/06/25 documented as of this encounter
--- OUTSIDE RECORDS SUMMARY | 2025-10-26 13:01 | XMS_ITS | Referral Summary ---
Author Organization [employer] ([place], [place], [place], [place], [place]) Address [address] [place] [address] Care Team Providers Care Pizza Driver Name Role Phone Ezequiel Houston MD Primary [...] the past 12 months, has t he [employer], gas, oil, or water [employer] threatened to shut off services in your [...] your living situation today? I have a [facility] place to live 05/02/2024 Think about [...] you speak a language other than [place] at [facility]? No 05/02/2024 Do you want help [...] Treatment Not on file Insurance [place] [id number] MEDICARE PART A B Advance Directives For more information, please contact: [phone] * Full Code (Latest Code Status on File) Date Activated Date Inactivated Comments 05/02/2024 8:35 PM 05/03/2024 7:01 PM -Attempt Res uscitation if person has no pulse and is not breathing. -If no pulse or not breathing attempt CPR/CODE. -Call Rapid Response if patient is in distress. Care Teams Pizza Driver Relationship Specialty Start Date End Date Ezequiel Houston MD PCP - General Orthopedic Surgery 05/02/24
--- OUTSIDE RECORDS SUMMARY | 2025-10-26 13:01 | XMS_ITS | Encounter Summary ---
Author Organization [facility] Address [address] [place] [address] Care Team Providers Care Securities Broker Name Role Phone Tariq Betancourt MD Primary Care Provider Encounter Details Date Type Department Care Team (Late st Contact Info) Description 06/12/2025 Telephone [facility] C[facility] [address] [facility] [address] [place] [address] Mia Patiño APRN [address] [facility] [address] [place] [address] Social History Tobacco Use Types Packs/Day Years [...] Description 06/24/2026 10:30 AM EDT Office Visit [facility] C[facility] [address] [facility] [address] [place] [address] José Miguel Abdi MD [address] [facility] [address] [place] [address] documented as of this encounter Visit Diagnoses Not on filedocumented in this encounter Care Teams Securities Broker Relationship Specialty Start Date End Date Tariq Betancourt MD [address] [facility] [address] [place] [address] PCP - General Family Medicine 03/06/25 documented as of this encounter
--- OUTSIDE RECORDS SUMMARY | 2025-10-26 13:01 | XMS_ITS | Clinical Summary ---
Author Organization [facility] Address [address] [place] [address] Care Team Providers Care Quality Control Engineering Technician Name Role Phone Tariq Betancourt MD [...] Dyslipidemia 06/15/2025 Abnormal nuclear stress test 03/13/2025 Family History Medical History Relation Name Comments [...] Description 06/24/2026 10:30 AM EDT Office Visit [facility] C[facility]IOLOG[facility] [address] [place] [address] José Miguel Abdi MD [address] [place] [address] Health Maintenance Due Date Last [...] exists Pneumococcal Vaccine 50+ Completed 08/26/2023, 12/2016 Insurance MEDICARE A & B [facility] [place] [address] Care Teams Quality Control Engineering Technician Relationship Specialty Start Date End Date Tariq Betancourt MD [facility]ly [facility] [address] [facility] [address] [place] [address] PCP - General Family Medicine 03/06/25
--- OUTSIDE RECORDS SUMMARY | 2025-10-26 13:02 | XMS_ITS | Encounter Summary ---
Author Organization [facility] Address [address] [place] [address] Care Team Providers Care Universal Grinder Tool Name Role Phone Tariq Betancourt MD Primary Care Provider [phone] Stan Leroy MD Unavailable [phone] Encounter Details Date Type Department Care Team (Late st Contact Info) Description 08/30/2025 Orders Only [facility] at [facility] [address] [place] [address] Stan Leroy MD [address] [address] Social History Tobacco Use Types [...] GFR (08/30/2025 3:53 PM EDT) Blood Result [facility] Stan Leroy MD LAB BLOOD ORDERABLES Final Res ult documented in this encounter Visit Diagnoses Not on filedocumented in this encounter Care Teams Universal Grinder Tool Relationship Specialty Start Date End Date Tariq Betancourt MD [address] [facility] [address] [place] [address] PCP - General 03/21/21 Stan Leroy MD [address] [place] [address] Medical Oncologist Hematology and Oncology 04/10/24 BAYLEE Henao [address] [place], [place] [id number] Referring Physician Orthopaedic Surgery 04/07/24 documented as of this encounter
[2025-10-26 13:13] VITALS: BP 129/41; PULSE 74; RESP 18; TEMP 36.5; O2SAT 95
[2025-10-26] MEDS: SODIUM CHLORIDE 0.9% 10ML FLUSH SYRINGE 10 ML IV (13:14)
[2025-10-26] MEDS: IRON SUCROSE COMPLEX 200 MG in 0.9 % SODIUM CHLORIDE 100 ML 220 MG IV (13:14)
== END 2025-10-26 23:59 | disposition home or self-care (01) ==
LOC: INF 12:58
PROVIDERS: PCP Family Medicine; Visit Provider Internal Medicine Medical Oncology
DX: D50.9 Iron deficiency anemia, unspecified (principal)
CPT/HCPCS: 96365; J1756

== ENCOUNTER 2025-10-29 12:52 | Outpatient (CLI) | payer MEDICARE, OTHER, SELFPAY ==
--- OUTSIDE RECORDS SUMMARY | 2024-06-20 08:45 | XMS_ITS ---
Author Organization [facility] Address [address] [facility] [address] [place] [phone] Care Team Providers Care Salesperson Fashion Accessories Name Role Phone Keeley Betancourt Primary Care Provider [phone] Allergies Allergen (clinical drug ingredient) Drug/Non Drug Allergy documented on EMR Reaction Allergy Type Onset Date Status cefdinir Cefdinir disoriented Drug Allergy Activ e ibandronic acid Ibandronic Acid BP high and low Drug Allergy Active moxifloxacin Moxifloxacin GI Drug Allergy A ctive Reason For Referral Reason at [facility] Angelo gaviria jovon for post op hip replacement rehab Diagnosis 1 S/P hip hemiarthropl asty (Z96.649) Referral Organization Jac[facility]ie Referring Provider First Name Keeley Gunn Referring Provider Last Name Serafin Referring Provider Speciality Family Pra ctice Referred Provider Physical Therapy, . Referred Provider Specialty Physical The rapist General Notes Nanci James 06/21/20 24 9:22:13 AM > faxed to scheduling at [facility] Referral Priority Routine REASON FOR VISIT f/u after hip replacement Medications Medication SIG (Take, Route, Frequency, Duration) Notes Start Date End Date Status traMADol HCl 50 MG 1-2 tab(s) Orally q6 h prn 06/20/2024 Active Albuterol Sulfate HFA 108 (90 Base) MCG/ACT 2 puff(s) inhaled every 6 hours prn Active DULoxetine HCl 30 MG 1 capsule Orally On ce a day; Duration: 30 day(s) Not-Taking Aspir-Low 81 MG 1 tab(s) orally once a day; Duration: 30 day(s) Active July Allergy 180 MG 1 tab(s) orally o nce a day 02/21/2021 Active Omeprazole 40 MG 1 cap(s) orally once a day; Duration: 30 day(s) 11/28/2020 Active CareTouch CPAP & BIPAP Hose 1 DIRECTED 11/10/2018 Active Nitroglycerin 0.4 MG 1 tab(s) sublingual ly every 5 minutes prn chest pain 11/28/2020 Active Vitamin D3 25 MCG (1000 UT) 2 cap(s) orally once a day Active Calcium + Vitamin D3 600-5 MG-MCG 1 tab(s) orally TID Active Furosemide 40 MG 1/2 tab(s) orally on ce a day Active Clopidogrel Bisulfate 75 MG 1 tab(s) orally once a day Active amLODIPine Besylate 10 MG 1 tab(s) Orall y once a day Active Nabumetone 500 MG 1 tablet Orally Twic e a day; Duration: 30 day(s) Active DULoxetine HCl 60 MG 1 capsule Orally On ce a day; Duration: 30 day(s) Active Benazepril HCl 40 MG 1 tab(s) orally onc e a day Active Metoprolol Succinate 100 MG 1 tab(s) orally once a day Active Atorvastatin Calcium 40 MG 1 tab(s) orally once a day (at bedtime) Active Flonase Allergy Relief 50 MCG/ACT 2 spray(s) intranasally once a day Active Alendronate Sodium 70 MG 1 tab(s) orally once a week Active Problems Problem Type SNOMED Code ICD Code Onset Dates Problem Status W/U Status Risk Notes Problem S/P hip hemiarthroplasty (Z96.649) Active confirmed Vital Signs Weight 128.3 lbs 06/20/2024 Blood pressure systolic 138 mm Hg 06/20/20 24 Blood pressure diastolic 52 mm Hg 024 Heart Rate 65 /min 06/20/2024 Height 63.50 in 06/20/2024 BMI 22.37 kg/m2 06/20/2024 Encounters Encounter Location Date Provider Diagnosis [facility] [address] [facility] [address] [place] [phone] 06/20/2024 R Luis A Betancourt S/P hip hemiarthropl asty Z96.649 and Hypoxemia R09.02 Assessments Encounter Date Diagnosis (ICD Code) Assessment Notes Treatment Notes Treatment Clinical Notes Section Notes 06/20/2024 S/P hip hemiarthroplasty (ICD-10 - Z96.649) 06/20/2024 Hypoxemia (ICD-10 - R09.02) ---post op Okay to discontinue supplemental oxygen Plan Of Treatment Medication Medication Name Sig Start Date Stop Date Notes traMADol HCl 50 MG 1-2 tab(s) Orally q6h prn 06/20/2024 Treatment Notes Assessment Notes Hypoxemia Okay to discontinue supplemental oxygen Referrals Referral Date Details 06/20/2024 06/20/2024, at [facility] location for post op hip replacement rehab, . Physical Therapy Next Appt Details Follow Up: as scheduled, [place] son: Provider Name:Keeley Giordano, 02/19/2026 10:45:00 AM, [address], [address], [place], [place], [phone], Progress Notes * NIHARIKA NARVAEZDOB:1950 (75 yo F)Acc No.[id number]:06/20/2024 Progress Notes Patient: NIHARIKA VILLARREAL Provider: Keeley Betancourt M.D. :1950 A ge:73 Y S ex:Female Date:06/20/2024 Address:[address] [place] [address], [place], [id number] Subjective: * Chief Complaints: * 1 . F/u after hip replacement. * HPI: H ip/Thigh: She is about 7 weeks postop from right total hip arthroplasty. She has done well with home physical therapy and her surgeon now wants her to proceed with outpatient physical therapy. Pt sts she was kept overnight in the hospital after surgery because her O2 was low. She was discharged home on supplemental oxygen. Pt sts that she has not used the oxygen since she brought it home. She denies shortness of breath. She would like to return her oxygen equipment to the [employer]. * ROS: D ERMATOLOGY: no R radha. n o H jt. G ASTROENTEROLOGY: no N ausea. n o V omiting. U ROLOGY: no D ifficulty urinating. n o B lood in urine. * Medical History: H yperlipidemia, Dysplastic colon polyp 1999, Sleep apnea on c-PAP, OA, Vitamin D deficiency, Seasonal allergies, DJD of lumbar spine, 45 pack year smoking history as of 2016, Osteoporosis. * Surgical History: r uptered disc/back surgery 1993, tubal 1976, carpal tunnel 2000, Colonoscopy/Dr. Garibay/polyp 09/2010, ORIF left femur fracture 10/2017, left hip replacement - Dr. Chung 04/2018, Stent placement both legs 03/2021, Cataract Surgery 05/2022, Right Hip Replacement Total 05/02/2024. * Hospitalization/Major Diagno stic Procedure: Iveth carrion- [facility] in [place] 11/2014. * Family History: F ather: , heart disease. M other: alive, heart disease. 3 brother(s) , 3 sister(s) - healthy. 2 son(s) , 1 daughter(s) - healthy. . * Social History: C URRENT TOBACCO USE: Yes . C affeine: yes, frequency:daily. Exercise: yes. Home smoke detector use: yes. Marital Status: . New since last visit: none. Past smoking status: previous history, PPD:1 , years:45 ,determination:. Occup. exposure: none. Recreational drug use: no. Alcohol: no. Travel ouside [place]: no. * Medications: T aking Alendronate Sodium 70 MG Tablet 1 tab(s) orally once a week , Taking Atorvastatin Calcium 40 MG Tablet 1 tab(s) orally once a day (at bedtime) , Taking Flonase Allergy Relief 50 MCG/ACT Suspension 2 spray(s) intranasally once a day , Taking Benazepril HCl 40 MG Tablet 1 tab(s) orally once a day , Taking Metoprolol Succinate 100 MG Capsule ER 24 Hour Sprinkle 1 tab(s) orally once a day , Taking amLODIPine Besylate 10 MG Tablet 1 tab(s) Orally once a day , Taking Furosemide 40 MG Tablet 1/2 tab(s) orally once a day , Taking Clopidogrel Bisulfate 75 MG Tablet 1 tab(s) orally once a day , Taking Nabumetone 500 MG Tablet 1 tablet Orally Twice a day , Taking DULoxetine HCl 60 MG Capsule Delayed Release Particles 1 capsule Orally Once a day , Taking Vitamin D3 25 MCG (1000 UT) Capsule 2 cap(s) orally once a day , Taking Calcium + Vitamin D3 600-5 MG-MCG Tablet 1 tab(s) orally TID , Taking CareTouch CPAP & BIPAP Hose MACHINE AND SUPPLIES 1 DIRECTED , Taking Nitroglycerin 0.4 MG Tablet Sublingual 1 tab(s) sublingually every 5 minutes prn chest pain , Taking Omeprazole 40 MG Capsule Delayed Release 1 cap(s) orally once a day , Taking Aspir-Low 81 MG Tablet Delayed Release 1 tab(s) orally once a day , Taking July Allergy 180 MG Tablet 1 tab(s) orally once a day , Taking Albuterol Sulfate HFA 108 (90 Base) MCG/ACT Aerosol Solution 2 puff(s) inhaled every 6 hours prn , Not- Taking DULoxetine HCl 30 MG Capsule Delayed Release Particles 1 capsule Orally Once a day , Medication List reviewed and reconciled with the patient * Allergies: M oxifloxacin: GI, Ibandronic Acid: BP high and low, Cefdinir: disoriented - Side Effects. Objective: * Vitals: W t:128.3, Temp:97.6, BP:138/52, HR:65, O2 Sat:93% on RA, Nurse:KIRIT, Ht: 63.50, BMI:22.37. * Examination: G eneral Examination: General Appearance: N AD. H eart: R SR. L ungs:?clear to auscultation. E xtremities: n o leg edema. Ambulates slowly with a straight cane. Assessment: * Assessment: 1. S /P hip hemiarthroplasty - Z96.649 (Primary) 2 . H ypoxemia - R09.02? Notes :---post op Plan: * Treatment: 2. H ypoxemia Notes: Okay to discontinue supplemental oxygen * Procedure Codes: 9 4760 PULSE OX * Follow Up: a s scheduled * Images: Billing Information: * Visit Code: 38984 Office Visit, Est Pt., Level 3. * Procedure Codes: 79485 PULSE OX. * Electronic signature of Keeley Betancourt MD on 10/29/2025 at 12:59 PM EST Sign off status: Pending * Provider: Keeley Betancourt M.D. Date: 0 06/20/2024 Generated for Nithya linares/Lela/eTransmitting on: 1 12/30/2024 12:59 PM EST History and Physical Notes * HPI (History of Present Illness) Category Sub-Category Detail Notes Category Not es Hip/Thigh Pt sts she was kept overnight in the hospital after surgery because her O2 was low. She was discharged home on supplemental oxygen. Pt sts that she has not used the oxygen since she brought it home. She denies shortness of breath. She would like to return her oxygen equipment to the [employer]. Examination Category Sub-Category Detail Notes Category Not es General Examination Heart: RSR Lungs: clear to auscultatio n Extremities: no leg edema. Ambul ates slowly with a straight cane General Appearance: NAD Consultation Request Notes Referral Date Referring Provider Referred Provider Not es 06/20/2024 Keeley Betancourt Physical Therapy, . at [facility] location for post op hip replacement rehab
--- OUTSIDE RECORDS SUMMARY | 2024-08-24 05:00 | XMS_ITS ---
Author Organization [facility] Address [address] [facility] [address] [place] [phone] Care Team Providers Care Coffee Weigher Name Role Phone Keeley Betancourt Primary Care Provider Allergies Allergen (clinical drug ingredient) Drug/Non Drug Allergy documented on EMR Reaction Allergy Type Onset Date Status cefdinir Cefdinir disoriented Drug Allergy Activ e ibandronic acid Ibandronic Acid BP high and low Drug Allergy Active moxifloxacin Moxifloxacin GI Drug Allergy A ctive Results Component Value Reference Range Notes CBC Venipuncture (in house) Reviewed date:08/28/2024 09:43:33 PM Interpretation:hgb 9.9, hct 30.9, mch 24.3 Performing Lab: Notes/Report: hgb 9.9, hct 30.9, mch 24.3 wbc 6.4 3.5 - 10 lymph 16.3 15 - 50 mid 4.6 2 - 15 gran 79.1 35 - 80 rbc 4.07 3.5 - 5.5 hgb 9.9 11.5 - 16.5 hct 30.9 35 - 55 mcv 76.0 75 - 100 mch 24.3 25 - 35 mchc 31.9 31 - 38 platlet 323 100 - 400 P-Vitamin B12 Reviewed date:08/28/2024 09:43:33 PM Interpretation:304 Performing Lab: Notes/Report: Test performed by [facility], [facility] , [address], [place] [address] Gamal Haywood MD, Inventory Control Planner CLIA: [id number] Vitamin B12 897 540-9232 pg/mL P-Comprehensive Metabolic Pa yoseph (CMP) Reviewed date:08/28/2024 09:43:33 PM Interpretation:Na 131, cl 92, gluc 100 Performing Lab: Notes/Report: Test performed by [employer] [address] [place] [address] , [address], [place] [address] Gamal Haywood MD, Inventory Control Planner CLIA: [id number] Sodium 131 135-145 mmol/L Potassium 4.0 3.5-5.3 mmol/L Chloride 92 97-108 mmol/L CO2 29 22-32 mmol/L Glucose 100 65-99 mg/dL BUN 8 8-23 mg/dL Creatinine 0.62 0.50-1.00 mg/dL Calcium 9.5 8.6-10.4 mg/dL eGFR by Creatinine 92 >59 mL/min/1.73m2 Protein 6.5 6.0-8.3 g/dL Albumin 4.0 3.5-5.3 g/dL Alkaline Phosphatase 77 35-121 IU/L ALT (SGPT) 11 <5-47 IU/L AST (SGOT) 15 <5-40 IU/L Bilirubin, Total 0.3 <0.2-1.2 mg/dL A/G Ratio 1.6 1.1-2.5 P-Iron Reviewed date:08/28/2024 09:43:33 PM Interpretation:17 Performing Lab: Notes/Report: Test performed by [employer] [address] [place] [address] , [address], [place] [address] Gamal Haywood MD, Inventory Control Planner CLIA: [id number] Iron 17 37-145 ug/dL P-Lipid Panel Reviewed date:08/28/2024 09:43:33 PM Interpretation:Normal Performing Lab: Notes/Report: Test performed by [employer] [address] [place] [address] , [address], [place] [address] Gamal Haywood MD, Inventory Control Planner CLIA: [id number] Cholesterol 162 <200 mg/dL Triglycerides 142 <150 mg/dL HDL Cholesterol 44 >39 mg/dL Cholesterol / HDL Ratio 3.68 0.00-4.44 Ratio Non-HDL Cholesterol 118 <130 mg/dL LDL Cholesterol (Calculation) 90 <130 mg/dL LDL Cholesterol Levels* Less than 100 mg/dL Optimal 100 to 129 mg/dL Near Optimal/ Above Optimal 130 to 159 mg/dL Borderline High 160 to 189 mg/dL High 190 mg/dL and above Very High * Categories as recommended by the 2004 ATPIII guidelines LDL/HDL Ratio 2.0 <3.3 Ratio LDL Cholesterol Patient History Test Date: 08/14/2022 LDL Results: 88 Units: mg/dL % Change: - ------- Test Date: 03/02/2024 LDL Results: 106 Units: mg/dL % Change: +20% ------- Test Date: 08/24/2024 LDL Results: 90 Units: mg/dL % Change: -15% P-Vitamin D 25-Hydroxy Reviewed date:08/28/2024 09:43:33 PM Interpretation:118 Performing Lab: Notes/Report: Test performed by [facility], [facility] [address] [place] [address] , [address], [place] [address] Gamal Haywood MD, Inventory Control Planner CLIA: [id number] Vitamin D 25-Hydroxy 118.0 30.0-100.0 ng/mL Interpretation of Vitamin D 25 OH: < 20 ng/mL - Deficiency 20 - 29 ng/mL - Insufficiency 30 - 100 ng/mL - Sufficiency > 100 ng/mL - Super-therapeutic- toxicity may occur above this level. Clinical correlation required. Bone density Reviewed date:10/03/2024 02:56:16 PM Interpretation:osteoporosis Performing Lab: Notes/Report: osteoporosis Bone density osteoporosis Mammogram Reviewed date:09/18/2024 04:07:01 PM Interpretation:Negative, annual f/u Performing Lab: Notes/Report: Negative, annual f/u result Negative, annual f/u Reason For Referral Reason skin lesions on face . Would prefer seeing neurology manager in [facility] Diagnosis 1 AK (actinic keratosi s) (L57.0) Referral Organization [facility] Referring Provider First Name Keeley Gunn Referring Provider Last Name Serafin Referring Provider Speciality Family Jae price Referred Provider Dermatology, . Referred Provider Specialty Dermatology General Notes Nanci James 024 1:54:17 PM > referral submitted via [facility] website, Nanci James 08/24/2024 2:58:20 PM > appt 08/25/2024 at 10:00am in [facility] Referral Priority Routine REASON FOR VISIT 6 months, Needs labs, mammogram in September, bone density screening, colon cancer screening, & flu vaccine Medications Medication SIG (Take, Route, Frequency, Duration) Notes Start Date End Date Status Metoprolol Succinate 100 MG 1 tab(s) orally once a day Active Benazepril HCl 40 MG 1 tab(s) orally onc e a day Active Clopidogrel Bisulfate 75 MG 1 tab(s) orally once a day Active Furosemide 40 MG 1/2 tab(s) orally on ce a day Active amLODIPine Besylate 10 MG 1 tab(s) Orall y once a day Active traMADol HCl 50 MG 1-2 tab(s) Orally q6 h prn 06/20/2024 Active Flonase Allergy Relief 50 MCG/ACT 2 spray(s) intranasally once a day Active Atorvastatin Calcium 40 MG 1 tab(s) orally once a day (at bedtime) Active DULoxetine HCl 30 MG 1 capsule Orally On ce a day; Duration: 30 day(s) Not-Taking Alendronate Sodium 70 MG 1 tab(s) orally once a week Active Albuterol Sulfate HFA 108 (90 Base) MCG/ACT 2 puff(s) inhaled every 6 hours prn Active July Allergy 180 MG 1 tab(s) orally o nce a day 02/21/2021 Active Aspir-Low 81 MG 1 tab(s) orally once a day; Duration: 30 day(s) Active Omeprazole 40 MG 1 cap(s) orally once a day; Duration: 30 day(s) 11/28/2020 Active Nitroglycerin 0.4 MG 1 tab(s) sublingual ly every 5 minutes prn chest pain 11/28/2020 Active Calcium + Vitamin D3 600-5 MG-MCG 1 tab(s) orally TID Active Vitamin D3 25 MCG (1000 UT) 2 cap(s) orally once a day Active DULoxetine HCl 60 MG 1 capsule Orally On ce a day; Duration: 30 day(s) Active Nabumetone 500 MG 1 tablet Orally Twic e a day; Duration: 30 day(s) Active CareTouch CPAP & BIPAP Hose 1 DIRECTED 11/10/2018 Active Immunizations Vaccine Route Administration Date Status Comme nts Fluzone High Dose (65yr and older) IM Intramuscular 08/24/2024 Administered Problems Problem Type SNOMED Code ICD Code Onset Dates Problem Status W/U Status Risk Notes Problem Anemia (141325678) Anemia (D64.9) Active confirmed Vital Signs Weight 120.4 lbs 08/24/2024 Blood pressure systolic 136 mm Hg 08/24/20 24 Blood pressure diastolic 60 mm Hg 024 Heart Rate 70 /min 08/24/2024 Height 63.50 in 08/24/2024 BMI 20.99 kg/m2 08/24/2024 Encounters Encounter Location Date Provider Diagnosis [facility] [address] [facility] [address] [place] [id number] 08/24/2024 Keeley Betancourt Essential hypertensi on I10 ; Dyslipidemia E78.5 ; Chronic obstructive pulmonary disease, unspecified COPD type J44.9 ; Primary osteoarthritis involving multiple joints M15.0 ; FRANSISCO (obstructive sleep apnea) G47.33 ; PAD (peripheral artery disease) I73.9 ; Osteoporosis without current pathological fracture, unspecified osteoporosis type M81.0 ; Seasonal allergies J30.2 ; Vitamin D deficiency E55.9 ; Tobacco use disorder F17.200 ; History of cigarette smoking Z87.891 ; Anemia D64.9 ; Vitamin B12 deficiency E53.8 ; Encounter for immunization Z23 ; AK (actinic keratosis) L57.0 and Screening for breast cancer Z12.39 Assessments Encounter Date Diagnosis (ICD Code) Assessment Notes Treatment Notes Treatment Clinical Notes Section Notes 08/24/2024 Essential hypertension (ICD-10 - I10) 08/24/2024 Dyslipidemia (ICD-10 - E78.5) 08/24/2024 Chronic obstructive pulmonary disease, unspecified COPD type (ICD-10 - J44.9) 08/24/2024 Primary osteoarthritis involving multiple joints (ICD-10 - M15.0) 08/24/2024 FRANSISCO (obstructive sleep apnea) (ICD-10 - G47.33) 08/24/2024 PAD (peripheral artery disease) (ICD-10 - I73.9) 08/24/2024 Osteoporosis without current pathological fracture, unspecified osteoporosis type (ICD-10 - M81.0) 08/24/2024 Seasonal allergies (ICD-10 - J30.2) 08/24/2024 Vitamin D deficiency (ICD-10 - E55.9) 08/24/2024 Tobacco use disorder (ICD-10 - F17.200) 08/24/2024 History of cigarette smoking (ICD-10 - Z87.891) 08/24/2024 Anemia (ICD-10 - D64.9) 08/24/2024 Vitamin B12 deficiency (ICD-10 - E53.8) 08/24/2024 Encounter for immunization (ICD-10 - Z23) 08/24/2024 AK (actinic keratosis) (ICD-10 - L57.0) 08/24/2024 Screening for breast cancer (ICD-10 - Z12.39) Plan Of Treatment Medication Medication Name Sig Start Date Stop Date Notes Metoprolol Succinate 100 MG 1 tab(s) orally once a day Benazepril HCl 40 MG 1 tab(s) orally once a day Clopidogrel Bisulfate 75 MG 1 tab(s) orally once a day Furosemide 40 MG 1/2 tab(s) orally once a day amLODIPine Besylate 10 MG 1 tab(s) Orally once a day Flonase Allergy Relief 50 MCG/ACT 2 spray(s) intranasally once a day Atorvastatin Calcium 40 MG 1 tab(s) oral ly once a day (at bedtime) Alendronate Sodium 70 MG 1 tab(s) orally once a week Referrals Referral Date Details 08/24/2024 08/24/2024, skin les ions on face. Would prefer seeing neurology manager in [facility], . Dermatology Next Appt Details Follow Up: 6 Months, Reason: Provider Name:Keeley Giordano, 02/19/2026 10:45:00 AM, [address] [facility] [address] [facility], [address] , [place], [place], [phone], Progress Notes * LYNDAKESHANIHARIKADOB:1950 (75 yo F)Acc No.[id number]:08/24/2024 Progress Notes Patient: NIHARIKA VILLARREAL Provider: Keeley Betancourt M.D. :1950 A ge:74 Y S ex:Female Date:08/24/2024 Address:[address] [place] [id number] Subjective: * Chief Complaints: * 1 . 6 months. 2. Needs labs, mammogram in September, bone density screening, colon cancer screening, & flu vaccine. * HPI: H PI: Pt presents today for a 6 month check up. Pt is fasting today. Pt would like her flu shot today. D ermatology: She has developed a raised lesion on her face over the past few months. H ematology: c/o Bruising P t sts that she has been brusing easily and thinks that her blood is too thin. C ardiology: C/o generalized fatigue. Denies : Chest Pain. D enies : Palpitations. Leg Edema m ild swelling around ankles. * ROS: D ERMATOLOGY: no R radha. [...] * Hospitalization/Major Diagno stic Procedure: Iveth carrion- [facility] in [place] 11/2014. * Family History: F ather: , [...] puff(s) inhaled every 6 hours prn , Taking traMADol HCl 50 MG Tablet 1-2 tab(s) Orally q6h prn , Not-Taking DULoxetine HCl 30 MG Capsule Delayed Release Particles 1 capsule Orally Once a day , Medication List reviewed and reconciled with the patient * Allergies: M oxifloxacin: GI, Ibandronic Acid: BP high and low, Cefdinir: disoriented - Side Effects. Objective: * Vitals: W t:120.4, Temp:97.7, BP:136/60, HR:70, O2 Sat:85% on RA, Nurse:KIRIT, Ht: 63.50, BMI:20.99. * Examination: C ardiology: General Appearance: p leasant, NAD. H EENT: s clera and conjunctiva clear, PERRLA, TM's normal, translucent. . C arotid upstroke: n ormal, no bruits. H eart sounds: R RR, normal S1, S2. M urmur, click , gallop: n one. Lungs: c lear, no rales or wheezes. A bdomen: p ositive BS, soft, nontender. E xtremities: n o leg edema. D ermatology: Face: several AKs on face. E xtremities: P urpuric lesions on forearms and lower legs. Assessment: * Assessment: 1. E ssential hypertension - I10 (Primary) 2 . D yslipidemia - E78.5 ? 3 . C hronic obstructive pulmonary disease, unspecified COPD type - J44.9 ?4. P rimary osteoarthritis involving multiple joints - M15.0 5 . O SA (obstructive sleep apnea) - G47.33 6 . P AD (peripheral artery disease) - I73.9? 7. O steoporosis without current pathological fracture, unspecified osteoporosis type - M81.0 8 . S easonal allergies - J30.2 9 . V itamin D deficiency - E55.9 1 0. T obacco use disorder - F17.200 1 1.?History of cigarette smoking - Z87.891 1 2. A nemia - D64.9 1 3. V itamin B12 deficiency - E53.8 1 4. E ncounter for immunization - Z23 15. A K (actinic keratosis) - L57.0 1 6. S creening for breast cancer - Z12.39 Plan: * Treatment: Value Reference Range A /G Ratio 1.6 1.1-2.5 - * A lbumin 4.0 3.5-5.3 - g/dL * A lkaline Phosphatase 77 35-121 - IU/L * A LT (SGPT) 11 <5-47 - IU/L * A ST (SGOT) 15 <5-40 - IU/L * B ilirubin, Total 0.3 <0.2-1.2 - mg/dL * B UN 8 8-23 - mg/dL * C alcium 9.5 8.6-10.4 - mg/dL * C hloride 92 L 97-108 - mmol/L * C O2 29 22-32 - mmol/L * C reatinine 0.62 0.50-1.00 - mg/dL * G lucose 100 H 65-99 - mg/dL * P otassium 4.0 3.5-5.3 - mmol/L * S odium 131 L 135-145 - mmol/L * P rotein 6.5 6.0-8.3 - g/dL * e GFR by Creatinine 92 >59 - mL/min/1.73m2 * Keeley Betancourt 08/28/2024 9:43:21 PM >See phone encounter 2.?Dyslipidemia? Refill Atorvastatin Calcium Tablet, 40 MG, 1 tab(s), orally, once a day (at bedtime), 90, Refills 3.?LAB: P-Lipid Panel (Collection Date & Time - 08/24/2024 09:51 AM)?Normal* Value Reference Range C holesterol / HDL Ratio 3.68 0.00-4.44 - Ratio * C holesterol 162 <200 - mg/dL * H DL Cholesterol 44 >39 - mg/dL * L DL Cholesterol (Calculation) 90 <130 - mg/d L * L DL/HDL Ratio 2.0 <3.3 - Ratio * N on-HDL Cholesterol 118 <130 - mg/dL * T riglycerides 142 <150 - mg/dL * Keeley Betancourt 08/28/2024 9:43:21 PM >See phone encounter 3.?PAD (peripheral artery disease)? Refill Clopidogrel Bisulfate Tablet, 75 MG, 1 tab(s), orally, once a day, 90, Refills 3.??4.?Osteoporosis without current pathological fracture, unspecified osteoporosis type? Refill Alendronate Sodium Tablet, 70 MG, 1 tab(s), orally, once a week, 12, Refills 3.?Imaging: Bone density (Performed Date - 09/13/2024)?osteoporosis* Value Reference Range B one density osteoporosis * Nanci James 08/24/2024 2:05 :00 PM > faxed to [facility] Lori Davenport 08/29/2024 11:34:40 AM > 09/13 @ 3:15NKeeley higginbotham 10/03/2024 2:55:50 PM > reviewed with patient during OV today. To start on Calcium+D supplement 5.?Seasonal allergies? Refill Flonase Allergy Relief Suspension, 50 MCG/ACT, 2 spray(s), intranasally, once a day, 1, Refills 3.??6.?Vitamin D deficiency?LAB: P-Vitamin D 25-Hydroxy (Collection Date & Time - 08/24/2024 09:51 AM)? 118* Value Reference Range V itamin D 25-Hydroxy 118.0 H 30.0-100.0 - ng/mL * Keeley Betancourt 08/28/2024 9:43:21 PM >See phone encounter 7.?Anemia?LAB: P-Iron (Collection Date & Time - 08/24/2024 09:51 AM)?17* Value Reference Range I luis Howell L 37-145 - ug/dL * Keeley Betancourt 08/28/2024 9:43:21 PM >See phone encounter ?LAB: CBC Venipuncture (in house) (Collection Date & Time - 08/24/2024)?hgb 9.9, hct 30.9, mch 24.3* Value Reference Range w bc 6.4 3.5 - 10 * l ymph 16.3 15 - 50 * m id 4.6 2 - 15 * g ran 79.1 35 - 80 * r bc 4.07 3.5 - 5.5 * h gb 9.9 11.5 - 16.5 * h ct 30.9 35 - 55 * m cv 76.0 75 - 100 * m ch 24.3 25 - 35 * m chc 31.9 31 - 38 * p latlet 323 100 - 400 * Isa Araiza 08/24/2024 11: 33:04 AM > Keeley Betancourt 08/28/2024 9:43:21 PM >See phone encounter 8.?Vitamin B12 deficiency?LAB: P-Vitamin B12 (Collection Date & Time - 08/24/2024 09:51 AM)?304* Value Reference Range V itamin B12 408 301-9921 - pg/mL * Keeley Betancourt 08/28/2024 9:43:21 PM >See phone encounter 9.?AK (actinic keratosis)? Referral To:. Dermatology??Dermatology ?Reason:skin lesions on face. Would prefer seeing neurology manager in [facility] 10.?Screening for breast cancer?Imaging: Mammogram (Performed Date - 09/13/2024)?Negative, annual f/u* Value Reference Range r esult Negative, annual f/u * Nanci James 08/24/2024 2:05 :11 PM > faxed to [facility] Lori Davenport 08/29/2024 11:34:56 AM > 09/13 @ 3:15WuIsa harrison 09/18/2024 4:06:24 PM > pt informed of results * Immunizations: Fluzone High Dose (65yr and older) : 0.5 mL (Route: Intramuscular) given by Isa Araiza on Left Deltoid (Encounter for immunization) * Procedure Codes: [address] [place], [address] CBC WITH AUTO DIFF, 31075 VENIPUNCT, ROUTINE* * Follow Up: 6 Months * Images: Billing Information: * Visit Code: 20776 Office Visit, Est Pt., Level 4. * Procedure Codes: [address] [place]. [address] CBC WITH AUTO DIFF. 38469 VENIPUNCT, ROUTINE*. * Electronic signature of Keeley Betancourt MD on 10/29/2025 at 12:58 PM EST Sign off status: Pending * Provider: Keeley Betancourt M.D. Date: Generated for Johni milagros/Lela/eTransmitting on: 12/30/2024 12:58 PM EST History and Physical Notes * HPI (History of Present Illness) Category Sub-Category Detail Notes Category Not es Cardiology Chest Pain Palpitations Leg Edema mild swelling around ankles Hematology Bruising Pt sts that she has been brusing easily and thinks that her blood is too thin Examination Category Sub-Category Detail Notes Category Not es Cardiology Lungs: clear, no rales or wheezes HEENT: sclera and conjuncti va clear, PERRLA, TM's normal, translucent. Heart sounds: RRR, normal S1, S2 Abdomen: positive BS, soft, n ontender Carotid upstroke: normal, no bruits Extremities: no leg edema Murmur, click , gallop: none General Appearance: pleasant, NAD Dermatology Extremities: Purpuric lesions on forearms and lower legs Face: several AKs on face Consultation Request Notes Referral Date Referring Provider Referred Provider Not es 08/24/2024 Keeley Betancourt Dermatology, . skin les ions on face. Would prefer seeing neurology manager in [facility]
--- OUTSIDE RECORDS SUMMARY | 2024-09-13 09:20 | XMS_ITS ---
Author Organization [facility] Address [address] [facility] [address] [place] [phone] Care Team Providers Care Airfield Operations Specialist Name Role Phone Keeley Betancourt Primary Care Provider [phone] Results Component Value Reference Range Notes Hemoccult- [...] Active Encounters Encounter Location Date Provider Diagnosis [facility] [address] [facility] 36 [facility] [address] [place], [place] [phone] 09/13/2024 Keeley Betancourt Anemia D64.9 Assessments Encounter Date Diagnosis (ICD Code) Assessment Notes Treatment Notes Treatment Clinical Notes Section Notes 09/13/2024 Anemia (ICD-10 - D64.9) Plan Of Treatment Next Appt Details Provider Name:Keeley Giordano, 02/19/2026 10:45:00 AM, [address] [facility] 36 [facility], [address], [place], [place], [phone], Progress Notes * NIHARIKA NARVAEZDOB:1950 (75 yo F)Acc No.[id number]:09/13/2024 Patient: Chery TORRES NIHARIKA Provider: Keeley Betancourt M.D. :1950 A ge:74 Y S ex:Female Date:09/13/2024 Address:[address] [place], [place] [address] [id number] Subjective: * Chief Complaints: * 1 . [...] Information: * Visit Code: * Procedure Codes: 70129 ASSAY TEST FOR BLOOD, FECAL. Modifiers: QW * Electronic signature of Keeley Betancourt MD on 10/29/2025 at 12:59 PM EST Sign off status: Pending * Provider: Keeley Betancourt M.D. Date: 11/13/2023 Generated for Johni milagros/Lela/Juaquinsmitting on: 12/30/2024 12:59 PM EST
--- OUTSIDE RECORDS SUMMARY | 2024-10-03 08:30 | XMS_ITS ---
Author Organization [facility] Address [address] [facility] [address] [place] [phone] Care Team Providers Care Chuck Tender Name Role Phone Keeley Betancourt Primary Care [...] Status Risk Notes Problem Iron deficiency anemia (21309215) Iron deficiency anemia (D50.9) Active confirmed Vital Signs Weight 120.6 lbs 10/03/2024 Blood pressure systolic 120 mm Hg 10/03/20 24 Blood pressure diastolic 60 mm Hg 024 Heart Rate 75 /min 10/03/2024 Height 63.50 in 10/03/2024 BMI 21.03 kg/m2 10/03/2024 Encounters Encounter Location Date Provider Diagnosis [facility] [address] [facility] [address] [phone] 10/03/2024 Keeley Betancourt Iron deficiency anem ia [...] [address], [address], [place], [place], [phone], Progress Notes * NIHARIKA NARVAEZDOB:1950 (75 yo F)Acc No.[id number]:10/03/2024 Progress Notes Patient: NIHARIKA VILLARREAL Provider: Keeley Betancourt M.D. :1950 A ge:74 Y S ex:Female Date:10/03/2024 Address:[address] [place] [address], [place], [id number] Subjective: * Chief Complaints: * 1 . [...] * Hospitalization/Major Diagno stic Procedure: Iveth luisyaakov- [facility] in [place] 11/2014. * Family History: F ather: , [...] to auscultation. Assessment: * Assessment: 1. I lius deficiency anemia - D50.9 (Primary) Plan: * [...] G 2211 Complex e/[place], [address] CAPILLARY BLOOD DRAW, 01836 CBC WITH AUTO DIFF * Follow Up: 6 Months * Images: Billing Information: * Visit Code: 26743 Office Visit, Est Pt., Level 3. * Procedure Codes: G2211 Complex e/[place]. [address] CAPILLARY BLOOD DRAW. 15130 CBC WITH AUTO DIFF. * Electronic signature of R Cheng Betancourt MD on 10/29/2025 at 12:59 PM EST Sign off status: Pending * Provider: Keeley Betancourt M.D. Date: 12/03/2023 Generated for Nithya linares/Lela/Aneesh on: 12/30/2024 12:59 PM EST History and Physical [...]
--- OUTSIDE RECORDS SUMMARY | 2025-02-15 04:15 | XMS_ITS ---
Author Organization [facility] Address [address] [facility] [address] [place] [phone] Care Team Providers Care Stamp Mounter Name Role Phone Keeley Betancourt Primary Care [...] Interpretation: Performing Lab: Notes/Report: Test performed by [employer], [employer] [address] [place] [address] , [address], [place] [address] Gamal Haywood MD, Hvac Project Engineer CLIA: [id number] Vitamin B12 756 820-2296 pg/mL P-Comprehensive Metabolic Pa yoseph (CMP) Reviewed date:02/20/2025 09:44:27 PM Interpretation: Performing Lab: Notes/Report: Test performed by [employer] [address] [place] [address] , [address], [place] [address] Gamal Haywood MD, Hvac Project Engineer CLIA: [id number] Sodium 137 135-145 mmol/L Potassium 3.7 3.5-5.3 [...] Interpretation: Performing Lab: Notes/Report: Test performed by [employer] [address] [place] [address] , [address] [place] [id number] Gamal Haywood MD, Hvac Project Engineer CLIA: [id number] Iron 140 37-145 ug/dL P-Lipid Panel Reviewed date:02/20/2025 09:44:27 PM Interpretation: Performing Lab: Notes/Report: Test performed by [employer] [address] [place] [address] , [address], [place] [address] Gamal Haywood MD, Hvac Project Engineer CLIA: [id number] Cholesterol 163 <200 mg/dL Triglycerides 106 <150 [...] Interpretation: Performing Lab: Notes/Report: Test performed by [employer] [address] [facility] [address], [place] [address] Gamal Haywood MD, Hvac Project Engineer CLIA: [id number] TSH 2.17 0.43-5.25 mU/L P-Microalbumin/Creatinine, R andom Urine Sample Reviewed date:02/20/2025 09:44:27 PM Interpretation: Performing Lab: Notes/Report: Test performed by [employer] [address] [facility] , [address], [place] [address] Gamal Haywood MD, Hvac Project Engineer CLIA: [id number] Albumin/Creatinine Ratio, Urine 18 0-30 ug/m g Microalbumin, Urine, Random 1.4 Creatinine, Urine 77.8 Reason For Referral Reason Dr. José Miguel [place] for PAD, carotid disease; dilated left atrium Diagnosis 1 PAD (peripheral beryl ry disease) (I73.9) [facility] Referring Provider First Name Keeley Gunn Referring Provider Last Name Serafin Referring Provider Speciality [facility] Referred Provider Cardiology, . Referred Provider Specialty Cardiovascul ar Disease General Notes Nanci James 2024 10:46:57 AM > faxed to [place] office as he does not have a [...] Status Risk Notes Problem Vitamin B12 deficiency (674259247) Vitamin B12 deficiency (E53.8) Active confirmed Problem Osteoporosis (88427848) Osteoporosis, unspecified (M81.0) Active confirmed Vital Signs Weight 110.4 lbs 02/15/2025 Blood pressure systolic 120 mm Hg 02/16/20 25 Blood pressure diastolic 60 mm Hg 025 Height 63.50 in 02/15/2025 BMI 19.25 kg/m2 02/15/2025 Encounters Encounter Location Date Provider Diagnosis [facility] [address] [facility] [address] [place], [place] [phone] 02/15/2025 Keeley Betancourt Adult general medica l [...] 02/19/2026 10:45:00 AM, [address] [facility] [address] [facility], [address] , [place], [place], [phone], Progress Notes * NIHARIKA NARVAEZDOB:1950 (75 yo F)Acc No.[id number]:02/15/2025 Annual Wellness Visit Patient: Chery VELKESHA NIHARIKA Provider: Keeley Betancourt M.D. :1950 A ge:74 Y S ex:Female Date:02/15/2025 Address:[address] [place], [place] [id number] Subjective: * Chief Complaints: * 1 . 6 months and AWV. * HPI: H PI: Patient is here today for a scheduled 6 month c heck up and a Medicare Annual Wellness Visit. Pt is fasting. C ardiology: She is just returned from wintering in [place]. She reports having some intermittent swelling in her feet and ankles while in [place]. She also complains of some exertional dyspnea. [...] * Hospitalization/Major Diagno stic Procedure: Iveth carrion- [facility] in [place] 11/2014. * Family History: F [...] AM)* Value Reference Range V itamin B12 858 436-6357 - pg/mL * Keeley Betancourt 02/20/2025 09:44:09 [...] OF ACTIVITY ASSESS, 4040F PNEUMOC IMM ORDER/ADMIN, 35512 CBC WITH AUTO DIFF, 1125F AMNT PAIN [...] * Images: Billing Information: * Visit Code: 45148 Office Visit, Est Pt., Level 3. Modifiers: 25 * Procedure Codes: G0439 ANNUAL WELLNESS VST; PPS SUBSQT VST. G2211 Complex e/m visit add on. G044 ANNUAL DEPRESSION SCREENING 15 MIN. 1090F PRES/ABSN URINE INCON ASSESS. 3288F FALL RISK ASSESSMENT DOCD. 1170F FXNL STATUS ASSESSED. 1159F MED LIST DOCD IN RCRD. 1003F LEVEL OF ACTIVITY ASSESS. 4040F PNEUMOC IMM ORDER/ADMIN. 19505 CBC WITH AUTO DIFF. 1125F AMNT PAIN NOTED PAIN PRSNT. G8510 NEG SCR Depression PT NOT ELIG F/U/PLN DOC. 3074F SYST BP LT 130 MM HG. 3078F DIAST BP < 80 MM HG. * Electronic signature of Keeley Betancourt MD on 10/29/2025 at 12:57 PM EST Sign off status: Pending * Provider: Keeley Betancourt M.D. Date: 0 02/15/2025 Generated for Nithya milagros/Lela/eTransmitting on: 1 12/30/2024 12:57 PM EST History and Physical Notes [...]
--- OUTSIDE RECORDS SUMMARY | 2025-04-12 09:15 | XMS_ITS ---
Author Organization [facility] Address [address] [facility] [address] [place] [phone] Care Team Providers Care Vault Manager Name Role Phone Keeley Betancourt Primary [...] Provider Diagnosis [facility] [address] [phone] 04/12/2025 Keeley Betancourt Tobacco use disorder F17.200 [...] [address], [address], [place], [place], [phone], Progress Notes * NIHARIKA NARVAEZDOB:1950 (75 yo F)Acc No.[id number]:04/12/2025 Progress Notes Patient: NIHARIKA VILLARREAL Provider: Keeley Betancourt M.D. :1950 A ge:74 Y S ex:Female Date:04/12/2025 Address:[address] [place] [address], [id number] Subjective: * Chief Complaints: * 1 . [...] * Hospitalization/Major Diagno stic Procedure: Iveth carrion- [facility] in [place] 11/2014. * Family History: F ather: , [...] * Images: Billing Information: * Visit Code: 50756 Office Visit, Est Pt., Level 3. * [...] 04/12/2025 Generated for Nithya linares/Lela/Jackiitting on: 1 12/30/2024 12:58 PM EST History and Physical Notes * Examination Category Sub-Category Detail Notes Category Not es General Examination Heart: RSR Lungs: Breath sounds are ge nerally diminished but otherwise clear. General Appearance: NAD
--- OUTSIDE RECORDS SUMMARY | 2025-08-21 04:00 | XMS_ITS ---
Author Organization [facility] Address [address] [facility] [address] [place] [id number] Care Team Providers Care Real Estate Investor Name Role Phone Keeley Betancourt Primary Care Provider [phone] Allergies Allergen (clinical drug ingredient) Drug/Non Drug [...] Interpretation:normal Performing Lab: Notes/Report: Test performed by [facility] [address] [place], [place] [address] [place] , [address], [place] [address] Gamal Haywood MD, Nude Model CLIA: [id number] Sodium 135 135-145 mmol/L Potassium 4.8 3.5-5.3 [...] Interpretation:Abnormal Performing Lab: Notes/Report: Test performed by [facility] [address] [place] [address] , [address], [place] [address] Gamal Haywood MD, Nude Model CLIA: [id number] Specimen Source Urine - Void Culture, Urine See Below See Microbiol ogy Report Pseudomonas aeruginosa 50,000-100,000 CF U/ml Pseudomonas aeruginosa Non-viable for sensitivities P-Lipid Panel Reviewed date:08/22/2025 11:35:09 AM Interpretation:LDL 76 Performing Lab: Notes/Report: Test performed by [facility] [address] [place], [place] [address] [place] , [address], [place] [address] Gamal Haywood MD, Nude Model CLIA: [id number] Lipid Panel Footnote See Below *Based on optimal reference values. Please refer to the DOS for additional information regarding diagnostic lipid reference ranges, patient management based on the recently updated lipid guidelines ([place] [employer]/[place] Heart Association Task Force on Clinical Practice [...] Risk Notes Problem Small cell lung cancer ([id number]) Small cell lung cancer (C34.90) Active confirmed Vital Signs Weight 120 lbs 08/21/2025 Blood pressure systolic 120 mm Hg 08/21/20 25 Blood pressure diastolic 60 mm Hg 025 Heart Rate 42 /min 08/21/2025 Height 63.50 in 08/21/2025 BMI 20.92 kg/m2 08/21/2025 Encounters Encounter Location Date Provider Diagnosis [facility] [address] [facility] [address] [place], [place] [id number] 08/21/2025 Keeley Betancourt Essential hypertensi on I10 [...] Brannon, Dr. Rojas, and radiation oncology in [place]. 08/21/2025 Dyslipidemia (ICD-10 - E78.5) 08/21/2025 Primary [...] Brannon, Dr. Rojas, and radiation oncology in [place]. Next Appt Details Follow Up: 6 Months, Reason: Provider Name:Keeley Giordano, 02/19/2026 10:45:00 AM, [address] [facility], [address] , [place], [place], [id number], Progress Notes * NIHARIKA NARVAEZDOB:1950 (75 yo F)Acc No.[id number]:08/21/2025 Progress Notes Patient: S NIHARIKA TORRES Provider: Keeley Betancourt M.D. :1950 A ge:75 Y S ex:Female Date:08/21/2025 Address:[address], [id number] Subjective: * Chief Complaints: * 1 . [...] Rojas and also with radiation oncology in [place]. Her brain MRI and CT scan of [...] Hospitalization/Major Diagno stic Procedure: Iveth carrion- [facility] in [place] 11/2014. * Family History: [...] for immunization - Z23 1 7. B [place] 20.0-20.9, adult - Z68.20? Plan: * Treatment: [...] Brannon, Dr. Rojas, and radiation oncology in [place].? 3.?Dyslipidemia? Refill Atorvastatin Calcium Tablet, 40 MG, [...] (Route: Intramuscular) given by ALEX Moss , Assistant Printer Floor Covering on Left Deltoid (Encounter for immunization) * [...] G 2211 Complex e/[place], [address] CBC WITH AUTO DIFF, 76659 Urinalysis, no micro, G8950 PREHTN/HTN BP DOC INDCD F/U DOC, G8752 MOST RECENT SYSTOLIC BP < 140MM HG, G8754 MOST RECENT DIASTOLIC BP < 90MM HG, 3074F SYST BP LT 130 MM HG, 3078F DIAST BP < 80 MM HG, G8420 BMI<30 AND >=22 CALC & DOCU * Follow Up: 6 Months * Images: Billing Information: * Visit Code: 56913 Office Visit, Est Pt., Level 4. * Procedure Codes: G2211 Complex e/[place]. [address] CBC WITH AUTO DIFF. 79609 Urinalysis, no micro. G8950 PREHTN/HTN BP DOC [...] M.D. Date: Generated for Nithya linares/Lela/eTransmitting on: 12/30/2024 12:58 PM EST History and [...] Rojas and also with radiation oncology in [place]. Her brain MRI and CT scan of [...]
--- OUTSIDE RECORDS SUMMARY | 2025-09-27 06:50 | XMS_ITS ---
Author Organization [facility] Address [address] [facility] [address] [phone] Care Team Providers Care Certified Lactation Educator Name Role Phone Keeley Beatncourt Primary Care Provider [phone] Allergies Allergen (clinical drug ingredient) Drug/Non Drug [...] Notes/Report: no fracture REASON FOR VISIT F/U [facility] Medications Medication SIG (Take, Route, Frequency, Duration) [...] 09/27/2025 Encounters Encounter Location Date Provider Diagnosis [facility] [address] [facility] [address], [place] [id number] 09/27/2025 R Luis A Serafin Fall W19.XXXA [...] [address], [address], [place], [place], [phone], Progress Notes * NIHARIKA NARVAEZDOB:1950 (75 yo F)Acc No.[id number]:09/27/2025 Patient: Chery TORRES NIHARIKA Provider: Keeley Betancourt M.D. :1950 A ge:75 Y S ex:Female Date:09/27/2025 Address:[address] [place] [address], [id number] Subjective: * Chief Complaints: * 1 . F/[facility]. * HPI: H PI: Patient is here today for a Transition of Care Visit. Discharge from the following Facility: Patient was admitted to [facility] on 09/14/2025 with Acute on Chronic Respiratory [...] * Hospitalization/Major Diagno stic Procedure: Iveth carrion- [facility] in [place] 11/2014. * Family History: F ather: , [...] * Images: Billing Information: * Visit Code: 45454 Office Visit, Est Pt., Level 3. * Procedure Codes: 53215 TRANS CARE MGMT 14 DAY DISCH. 1111F DSCHR MED/CURENT MED MERGE. G2211 Complex e/m visit add on. * Electronic signature of Keeley Betancourt MD on 10/29/2025 at 12:58 PM EST Sign off status: Pending * Provider: Keeley Betancourt M.D. Date: 11/27/2024 Generated for Nithya linares/Lela/Jackiitting on: 12/30/2024 12:58 PM EST History and Physical Notes * HPI (History of Present Illness) Category Sub-Category Detail Notes Category Not es HPI Patient is here toda y for a Transition of Care Visit. Discharge from the following Facility: Patient was admitted to [facility] on 09/14/2025 with Acute on Chronic Respiratory [...]
--- OUTSIDE RECORDS SUMMARY | 2025-10-29 12:58 | XMS_ITS | Clinical Summary ---
Author Organization [facility] Address [address] [place] [address] Care Team Providers Care Senior Care Specialist Name Role Phone Tariq Betancourt MD Primary Care Provider [phone] Stan Leroy MD Unavailable [phone] Allergies No known active allergies Medications [...] Orders Only [facility] at [address] [address] Stan Leroy MD from [...] or (1 - 1-dose 75+ series) 2023 [id number] Vaccine (6 - 2024- season) 2025 08/25/2022, [...] Payer (Ef fective 2013-Present) Name:Antonia Pickens Member ID:[id number] Relation to Subscriber:Self Name:Antonia Pickens Subscriber ID:[id number] Payer ID:MEDICARE Group ID:Not on file Type:Medicare Address: [address] [facility] Care Teams Senior Care Specialist Relationship Specialty Start Date End Date Tariq Betancourt MD 12[address] [facility] [address] [address] PCP - General 03/21/21 Stan Leroy MD [address] [place] [address] Medical Oncologist Hematology and Oncology 04/10/24 BAYLEE Henao [address] [place] [address] Referring Physician Orthopaedic Surgery 04/07/24
--- OUTSIDE RECORDS SUMMARY | 2025-10-29 12:58 | XMS_ITS | Patient Health Record ---
Author Organization [facility] Address [address] [facility] [address] [place] [id number] Care Team Providers Care Compressed Gas Plant Worker Name Role Phone Keeley Betancourt Primary Care Provider [phone] Allergies Allergen (clinical drug ingredient) Drug/Non Drug [...] Interpretation: Performing Lab: Notes/Report: Test performed by [facility] [facility] ([facility]) [facility] , [address], [place] [address] Gamal Haywood MD, Wallpaper Embosser Helper CLIA: [id number] Vitamin B12 [phone] pg/mL P-Comprehensive Metabolic Pa yoseph (CMP) Reviewed date:02/20/2025 09:44:27 PM Interpretation: Performing Lab: Notes/Report: Test performed by [facility] [facility] ([facility]) [address] [place] [address] , [place] [address] Gamal Haywood MD, Wallpaper Embosser Helper CLIA: [id number] Sodium 137 135-145 mmol/L Potassium 3.7 3.5-5.3 [...] Interpretation: Performing Lab: Notes/Report: Test performed by [facility] [facility] ([facility]) [address] [place] [address] , [facility] [place] [address] Gamal Haywood MD, Wallpaper Embosser Helper CLIA: [id number] Iron 140 37-145 ug/dL P-Lipid Panel Reviewed date:02/20/2025 09:44:27 PM Interpretation: Performing Lab: Notes/Report: Test performed by [facility] [facility] ([facility]) [address] [place] [address] , [facility] [place] [address] Gamal Haywood MD, Wallpaper Embosser Helper CLIA: [id number] Cholesterol 163 <200 mg/dL Triglycerides 106 <150 [...] Interpretation: Performing Lab: Notes/Report: Test performed by [facility], [facility] [address] [place] [address] Jose Juan Cartagena, [place] [address] Gamal Haywood MD, Wallpaper Embosser Helper CLIA: [id number] TSH 2.17 0.43-5.25 mU/L P-Microalbumin/Creatinine, R andom Urine Sample Reviewed date:02/20/2025 09:44:27 PM Interpretation: Performing Lab: Notes/Report: Test performed by [facility] [facility] ([facility]) [address] [place] [address] , [address], [place] [address] Gamal Haywood MD, Wallpaper Embosser Helper CLIA: [id number] Albumin/Creatinine Ratio, Urine 18 0-30 ug/mg Microalbumin, Urine, Random 1.4 Creatinine, Urine 77.8 CBC Venipuncture (in house) Reviewed date:08/22/2025 11:35:09 [...] - 38 platlet 392 100 - 400 CT Scan : Chest, low dose Reviewed date:05/10/2025 08:10:22 AM Interpretation:Abnormal Performing Lab: Notes/Report: Abnormal P-Lipid Panel Reviewed date:08/22/2025 11:35:09 AM Interpretation:LDL 76 Performing Lab: Notes/Report: Test performed by [facility] [facility] ([facility]) [address] [place] [address] , [address], [place] [address] Gamal Haywood MD, Wallpaper Embosser Helper CLIA: [id number] Lipid Panel Footnote See Below *Based on optimal reference values. Please refer to the DOS for additional information regarding diagnostic lipid reference ranges, patient management based on the recently updated lipid guidelines ([place] [employer]/[place] [employer] Association Task Force on Clinical Practice [...] 76 Units: mg/dL % Change: -13% ____ Urinalysis - Inhouse Reviewed date:08/22/2025 11:35:09 AM Interpretation: Performing Lab: Notes/Report: Color/Clarity yellow Leuk neg Nitrite neg Urobili neg Protein 1.020 pH neg Blood 7.6 Sp. Gr. neg Ketone 16 Bili neg Gluc 1+ P-Comprehensive Metabolic Pa yoseph (CMP) Reviewed date:08/22/2025 11:35:09 AM Interpretation:normal Performing Lab: Notes/Report: Test performed by [facility] [facility] ([facility]) [address] [place] [address] , [address], [place] [address] Gamal Haywood MD, Wallpaper Embosser Helper CLIA: [id number] Sodium 135 135-145 mmol/L Potassium 4.8 3.5-5.3 [...] Interpretation:Abnormal Performing Lab: Notes/Report: Test performed by [facility] [facility] ([facility]) [address] [place] [address] , [address], [place] [address] Gamal Haywood MD, Wallpaper Embosser Helper CLIA: [id number] Specimen Source Urine - Void Culture, Urine See Below See Microbiol ogy Report Pseudomonas aeruginosa 50,000-100,000 CF U/ml Pseudomonas aeruginosa Non-viable for sensitivities X ray : ribs left Reviewed date:10/01/2025 09:16:47 PM Interpretation:no fracture Performing Lab: Notes/Report: no fracture Reason For Referral Reason Dr. José Miguel Reyes for PAD, carotid disease; dilated left atrium Diagnosis 1 PAD (peripheral beryl ry disease) (I73.9) Referral Organization [facility] Referring Provider First Name Keelye Gunn Referring Provider Last Name Serafin Referring Provider Speciality [facility] ctice Referred Provider Cardiology, . Referred Provider Specialty Cardiovascul ar Disease General Notes Nanci James 2024 10:46:57 AM > faxed to [place] office as he does not have a [place] number Referral Priority Routine Reason Lung mass on chest C T Diagnosis [address] (R 93.89) Referral Organization [facility] Referring Provider First Name Keeley Gunn Referring Provider Last Name Serafin [facility]erred Organization [facility] OP Referred Provider Bartolome Brannon Referred Address [address] [address] [address] [place] bel[place]an,[place],[id number], Referred Provider Specialty Pulmonary Di seases General [...] Vaccine Route Administration Date Status Comme nts PNEUMOVAX 23 VACCINE IM Intramuscular 03/09/2017 Administe red Prevnar (PCV13) IM Intramuscular 03/12/2015 Administered Prevnar (PCV13) IM Intramuscular 08/26/2015 Administered Prevnar (PCV20) IM Intramuscular 08/26/2023 Administered Shingrix Unknown 02/25/2018 Pending Tetanus Tdap-Adacel (over 7yrs) IM Intramuscular 06/24/2012 Administered Tetanus Tdap-Adacel (over 7yrs) IM Intramuscular 08/26/2023 Administered tuberculin (ppd) ID Intradermal 07/27/2005 Administered tuberculin (ppd) IM Intramuscular 05/28/2008 Administered Fluzone High Dose (65yr and older) [...] (65yr and older) IM Intramuscular 08/21/2025 Administered COVID 19 Moderna IM Intramuscular 01/02/2021 Administered COVID 19 Moderna IM Intramuscular 01/30/2021 Administered COVID 19 Moderna Unknown 09/11/2021 Administered COVID 19 Moderna Unknown 06/18/2022 Administered Problems Problem Type SNOMED Code ICD Code Onset Dates Problem Status W/U Status Risk Notes Problem Vitamin D deficiency (92050890) Vitamin D deficiency (E55.9) Active confirmed Problem Vitamin B12 deficiency (566735310) Vitamin B12 deficiency (E53.8) Active confirmed Problem Anemia (205324657) Anemia (D64.9) Active confirmed Problem Essential hypertension (34933708) Essential hypertension (I10) Active confirmed Problem Abnormal mammogram (613289744) Abnormal mammogram (R92.8) Active confirmed Problem Seasonal allergy (365942217) Seasonal allergies (J30.2) Active confirmed Problem Iron deficiency anemia (34245443) Iron deficiency anemia (D50.9) Active confirmed Problem Primary osteoarthritis (611081585) Primary osteoarthritis involving multiple joints (M15.0) Active confirmed Problem COPD - Chronic obstructive pulmonary disease (39996883) Chronic obstructive pulmonary disease, unspecified COPD type (J44.9) Active confirmed Problem Obstructive sleep apnea syndrome (90524606) FRANSISCO (obstructive sleep apnea) (G47.33) Active confirmed Problem Localized, primary osteoarthritis of the pelvic region and thigh (615473392) 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) Active confirmed Problem Tobacco user (293928486) Cigarette nicotine dependence without complication (F17.210) Active confirmed Problem Dyslipidemia (760682106) Dyslipidemia (E78.5) Active confirmed Problem Peripheral vascular disease (107260707) PAD (peripheral artery disease) (I73.9) Active confirmed Problem Tobacco use (887374286) Tobacco use disorder (F17.200) Active confirmed Problem Age-related osteoporosis (049312805) Osteoporosis without current pathological fracture, unspecified osteoporosis type (M81.0) Active confirmed Problem Osteoporosis (56580821) Osteoporosis, unspecified (M81.0) Active confirmed Problem Ex-smoker (finding) (2383888) History of cigarette smoking (Z87.891) Active confirmed Problem Left carotid artery occlusion (430701051028770) Left carotid stenosis (I65.22) Active confirmed Problem Small cell lung cancer (386534135) Small cell lung cancer (C34.90) Active confirmed Problem S/P hip hemiarthroplasty (Z96.649) Active confirmed Vital Signs Heart Rate 68 /min 09/27/2025 Blood pressure diastolic 68 mm Hg 09/27/2025 Height 63.50 in 09/27/2025 Blood pressure systolic 122 mm Hg 09/27/2025 Weight 121 lbs 09/27/2025 BMI 21.1 kg/m2 09/27/2025 Encounters Encounter Location Date Provider [facility] [address] [id number] [facility] Z00.00 [...] in adult Z68.1 and Osteoporosis, unspecified M81.0 [facility] [address] [place] [id number] 04/12/2025 Luis A Pat[place]leet Tobacco use disorder F17.200 ; Chronic obstructive pulmonary disease, unspecified COPD type J44.9 ; Atelectasis of both lungs J98.11 and FRANSISCO (obstructive sleep apnea) G47.[address] [place] [id number] 08/21/2025 R Luis A Serafin Essential hypertensi [...] immunization Z23 and BMI 20.0-20.9, adult Z68.20 [facility] [address] [place] [id number] 09/27/2025 R Luis A Serafin Fall W19.XXXA ; Rib pain R07.81 ; Small cell lung cancer C34.90 and Chronic obstructive pulmonary disease, unspecified COPD type J44.9 [facility] [address] [place], [place] [id number] 09/03/2025 R Luis A Serafin [facility] [address] [place], [place] [id number] 02/20/2025 R Luis A Serafin [facility] [address] [place] [id number] 05/07/2025 R Luis A Serafin Abnormal chest CT R9 3.89 [facility] [address] [place] [id number] 08/22/2025 R Luis A Serafin [facility] [address] [place], [place] [id number] 08/27/2025 R Luis A Serafin [facility] [address] [place] [id number] 09/04/2025 R Luis A Serafin Dyslipidemia E78.5 [facility] [address] [place] [id number] 09/18/2025 R Luis A Gomezeet [facility] [address] [place], [place] [id number] 09/21/2025 R Luis A Serafin [facility] [address] [place], [place] [id number] 09/25/2025 R Luis A Serafin [facility] [address] [place], [place] [id number] 09/28/2025 R Luis A Serafin [facility] [address] [place], [place] [id number] 10/22/2025 R Luis A Serafin Assessments Encounter [...] Brannon, Dr. Rojas, and radiation oncology in [place]. 04/12/2025 Atelectasis of both lungs (ICD-10 - [...] [address] [facility], [address], [place], [place], [id number], Insurance Providers Payer Name Payer Address Payer Phone Subscriber Number Group Number Insured Name Patient Relationship to Insured Coverage Start Date Coverage End Date MEDICARE PART B [address] [address] [place] [id number] NIHARIKA NARVAEZ Self [place] [id number] NIHARIKA NARVAEZ Self - patient is the [...]
--- OUTSIDE RECORDS SUMMARY | 2025-10-29 12:59 | XMS_ITS | Clinical Summary ---
Author Organization [employer] ([place], [place], [place], [place], [place]) Address [address] [place] [address] Care Team Providers Care Director Of State Name Role Phone Ezequiel Houston MD Primary [...] the past 12 months, has t he [employer], gas, oil, or water [employer] threatened to shut off services in your [...] your living situation today? I have a [facility] place to live 05/02/2024 Think [...] Do you speak a language other than [place] at [facility]? No 05/02/2024 Do you want help [...] years Completed 08/26/2023, 2016 Insurance [place] [id number] [address] [place] [place] [address] Advance Directives For more information, please contact: [phone] * Full Code (Latest Code Status on File) Date Activated Date Inactivated Comments 05/02/2024 8:35 PM 05/03/2024 7:01 PM -Attempt Res uscitation if person has no pulse and is not breathing. -If no pulse or not breathing attempt CPR/CODE. -Call Rapid Response if patient is in distress. Care Teams Director Of State Relationship Specialty Start Date End Date Ezequiel Houston MD PCP - General Orthopedic Surgery 05/02/24
--- OUTSIDE RECORDS SUMMARY | 2025-10-29 12:59 | XMS_ITS | Clinical Summary ---
Author Organization [facility] Address [address] [place] [address] Care Team Providers Care Svp Operations Name Role Phone Tariq Betancourt MD Primary [...] Description 06/24/2026 10:30 AM EDT Office Visit [facility] C[facility] [address] [place] [address] José Miguel Abdi MD [address] [place] [address] Health Maintenance Due Date Last [...] 08/26/2023, 12/2016 Insurance MEDICARE A & B [facility] [place] [address] Care Teams Svp Operations Relationship Specialty Start Date End Date Tariq Betancourt MD [facility] [address] [facility] [address] [place] [address] PCP - General Family Medicine 03/06/25
--- OUTSIDE RECORDS SUMMARY | 2025-10-29 12:59 | XMS_ITS | Encounter Summary ---
Author Organization [facility] Address [address] [place] [address] Care Team Providers Care Fur Remodeler Name Role Phone Tariq Betancourt MD Primary Care Provider Encounter Details Date Type Department Care Team (Late st Contact Info) Description 06/12/2025 Telephone [facility]Y [address] [facility] [address] [place] [address] Mia Patiño APRN [address] [facility] [address] [place] [address] Social History Tobacco Use Types Packs/Day Years [...] Description 06/24/2026 10:30 AM EDT Office Visit [facility] [address] [facility] [address] [place] [address] José Miguel Abdi MD [address] [facility] [address] [place] [address] documented as of this encounter Visit Diagnoses Not on filedocumented in this encounter Care Teams Fur Remodeler Relationship Specialty Start Date End Date Tariq Betancourt MD [address] [facility] [address] [place] [address] PCP - General Family Medicine 03/06/25 documented as of this encounter
--- OUTSIDE RECORDS SUMMARY | 2025-10-29 12:59 | XMS_ITS | Encounter Summary ---
Author Organization [facility] Address [address] [place] [address] Care Team Providers Care Recreation Director Name Role Phone Tariq Betancourt MD Primary Care Provider [phone] Stan Leroy MD Unavailable [phone] Encounter Details Date Type Department Care Team (Late st Contact Info) Description 08/30/2025 Orders Only [facility] at [facility] [address] [place] [address] Stan Leroy MD [address] [address] Social History Tobacco Use Types [...] GFR (08/30/2025 3:53 PM EDT) Blood Result [facility] Stan Leroy MD LAB BLOOD ORDERABLES Final Res ult documented in this encounter Visit Diagnoses Not on filedocumented in this encounter Care Teams Recreation Director Relationship Specialty Start Date End Date Tariq Betancourt MD [address] [facility] [address] [place] [address] PCP - General 03/21/21 Stan Leroy MD [address] [place] [address] Medical Oncologist Hematology and Oncology 04/10/24 BAYLEE Henao [address] [place], [place] [id number] Referring Physician Orthopaedic Surgery 04/07/24 documented as of this encounter
--- OUTSIDE RECORDS SUMMARY | 2025-10-29 12:59 | XMS_ITS | Encounter Summary ---
Author Organization [facility] Address [address] [place] [address] Care Team Providers Care Burlap Man Name Role Phone Tariq Betancourt MD Primary Care Provider Encounter Details Date Type Department Care Team (Late st Contact Info) Description 07/06/2025 Results Follow-Up [facility] CARDIOLOGY [address] [facility] [address] [place] [address] José Miguel Abdi MD [address] [facility] [address] [place] [address] Social History Tobacco Use Types Packs/Day Years [...] [facility] [address] [facility] [address] [place] [address] José Miguel Abdi MD [address] [facility] [address] [place] [address] documented as of this encounter Visit Diagnoses Not on filedocumented in this encounter Care Teams Burlap Man Relationship Specialty Start Date End Date Tariq Betancourt MD [address] [facility] [address] [place] [address] PCP - General Family Medicine 03/06/25 documented as of this encounter
--- OUTSIDE RECORDS SUMMARY | 2025-10-29 12:59 | XMS_ITS | Referral Summary ---
Author Organization [employer] ([place], [place], [place], [place], [place]) Address [address] [place] [address] Care Team Providers Care Apartment Leasing Agent Name Role Phone Ezequiel Houston MD [...] the past 12 months, has t he [employer], gas, oil, or water [employer] threatened to shut off services in your [...] your living situation today? I have a [facility] place to live 05/02/2024 Think about the [...] Do you speak a language other than Tajik at [facility]? No 05/02/2024 Do you want help [...] Treatment Not on file Insurance [place] [id number] MEDICARE PART A B Advance Directives For more information, please contact: [phone] * Full Code (Latest Code Status on File) Date Activated Date Inactivated Comments 05/02/2024 8:35 PM 05/03/2024 7:01 PM -Attempt Res uscitation if person has no pulse and is not breathing. -If no pulse or not breathing attempt CPR/CODE. -Call Rapid Response if patient is in distress. Care Teams Apartment Leasing Agent Relationship Specialty Start Date End Date Ezequiel Houston MD PCP - General Orthopedic Surgery 05/02/24
[2025-10-29 13:12] VITALS: BP 105/53; PULSE 92; RESP 16; TEMP 36.6; O2SAT 98
[2025-10-29] MEDS: SODIUM CHLORIDE 0.9% 10ML FLUSH SYRINGE 10 ML IV (13:12)
[2025-10-29] MEDS: IRON SUCROSE COMPLEX 200 MG in 0.9 % SODIUM CHLORIDE 100 ML 220 MG IV (13:12)
[2025-10-29 14:00] VITALS: BP 115/61; PULSE 77; RESP 16; O2SAT 98
== END 2025-10-29 23:59 | disposition home or self-care (01) ==
LOC: INF 12:53
PROVIDERS: PCP Family Medicine; Visit Provider Internal Medicine Medical Oncology
DX: D50.9 Iron deficiency anemia, unspecified (principal)
CPT/HCPCS: 96365; J1756

== ENCOUNTER 2025-11-05 12:50 | Outpatient (CLI) | payer MEDICARE, OTHER, SELFPAY ==
--- OUTSIDE RECORDS SUMMARY | 2024-06-20 08:45 | XMS_ITS ---
Author Organization [facility] Address [address] [facility] [address] [place] [phone] Care Team Providers Care Viscera Washer Name Role Phone Keeley Betancourt Primary Care Provider Allergies Allergen (clinical drug ingredient) Drug/Non Drug Allergy documented on EMR Reaction Allergy Type Onset Date Status cefdinir Cefdinir disoriented Drug Allergy Activ e ibandronic acid Ibandronic Acid BP high and low Drug Allergy Active moxifloxacin Moxifloxacin GI Drug Allergy A ctive Reason For Referral Reason at [facility] Angelo gaviria jovon for post op hip replacement rehab Diagnosis 1 S/P hip hemiarthropl asty (Z96.649) Referral Organization [facility] Referring Provider First Name Keeley Gunn Referring Provider Last Name Serafin Referring Provider Speciality Family Pra ctice Referred Provider Physical Therapy, . Referred Provider Specialty Physical The rapist General Notes Nanci James 06/21/20 24 9:22:13 AM > faxed to scheduling at [facility] Referral Priority Routine REASON FOR VISIT f/u [...] 06/20/2024 Encounters Encounter Location Date Provider Diagnosis [facility] [address] [facility] [address] [place] [phone] 06/20/2024 R Luis A Betancourt S/P hip [...] Referrals Referral Date Details 06/20/2024 06/20/2024, at [facility] location for post op hip replacement rehab, . Physical Therapy Next Appt Details Follow Up: as scheduled, [place] son: Provider Name:Keeley Giordano, 02/19/2026 10:45:00 AM, [address], [address], [place], [place], [phone], Progress Notes * NIHARIKA NARVAEZDOB:1950 (75 yo F)Acc No.[id number]:06/20/2024 Progress Notes Patient: NIHARIKA VILLARREAL Provider: Keeley Betancourt M.D. :1950 A ge:73 Y S ex:Female Date:06/20/2024 Address:[address] [place] [address], [place], [id number] Subjective: * Chief Complaints: * 1 . [...] to return her oxygen equipment to the [employer]. * ROS: D ERMATOLOGY: no R radha. [...] * Hospitalization/Major Diagno stic Procedure: Iveth carrion- [facility] in [place] 11/2014. * Family History: F ather: , [...] * Images: Billing Information: * Visit Code: 08553 Office Visit, Est Pt., Level 3. * Procedure Codes: 20220 PULSE OX. * Electronic signature of Keeley Betancourt MD on 11/05/2025 at 12:58 PM EST Sign off status: Pending * Provider: Keeley Betancourt M.D. Date: 0 06/20/2024 Generated for Nithya linares/Lela/eTransmitting on: 1 12:58 PM EST History and Physical Notes * [...] to return her oxygen equipment to the [employer] company. Examination Category Sub-Category Detail Notes Category Not es General Examination Heart: RSR Lungs: clear to auscultatio n Extremities: no leg edema. Ambul ates slowly with a straight cane General Appearance: NAD Consultation Request Notes Referral Date Referring Provider Referred Provider Not es 06/20/2024 Keeley Betancourt Physical Therapy, . at [facility] location for post op hip replacement rehab
--- OUTSIDE RECORDS SUMMARY | 2024-08-24 05:00 | XMS_ITS ---
Author Organization [facility] Address [address] [facility] [address] [place] [phone] Care Team Providers Care Manager Of Organizational Development Name Role Phone Keeley Betancourt Primary Care [...] Interpretation:304 Performing Lab: Notes/Report: Test performed by [employer], [employer] [facility] , [address], [place] [address] Gamal Haywood MD, Land Conservation Specialist CLIA: [id number] Vitamin B12 500 743-9368 pg/mL P-Comprehensive Metabolic Pa yoseph (CMP) Reviewed date:08/28/2024 09:43:33 PM Interpretation:Na 131, cl 92, gluc 100 Performing Lab: Notes/Report: Test performed by [employer] [address] [place] [address] , [address], [place] [address] Gamal Haywood MD, Land Conservation Specialist CLIA: [id number] Sodium 131 135-145 mmol/L Potassium 4.0 3.5-5.3 [...] Interpretation:17 Performing Lab: Notes/Report: Test performed by [employer] [address] [place] [address] , [address], [place] [address] Gamal Haywood MD, Land Conservation Specialist CLIA: [id number] Iron 17 37-145 ug/dL P-Lipid Panel Reviewed date:08/28/2024 09:43:33 PM Interpretation:Normal Performing Lab: Notes/Report: Test performed by [employer] [address] [place] [address] , [address], [place] [address] Gamal Haywood MD, Land Conservation Specialist CLIA: [id number] Cholesterol 162 <200 mg/dL Triglycerides 142 <150 [...] Interpretation:118 Performing Lab: Notes/Report: Test performed by [employer], [employer] [address] [place] [address] , [address], [place] [address] Gamal Haywood MD, Land Conservation Specialist CLIA: [id number] Vitamin D 25-Hydroxy 118.0 30.0-100.0 ng/mL Interpretation [...] lesions on face . Would prefer seeing energy project engineer in [facility] Diagnosis 1 AK (actinic keratosi s) (L57.0) Referral Organization [facility] Referring Provider First Name Keeley Gunn Referring Provider Last Name Serafin Referring Provider Speciality Family Jae price Referred Provider Dermatology, . Referred Provider Specialty Dermatology General Notes Nanci James 024 1:54:17 PM > referral submitted via [facility] website, Nanci James 08/24/2024 2:58:20 [...] Status W/U Status Risk Notes Problem Anemia (592037897) Anemia (D64.9) Active confirmed Vital Signs Weight 120.4 lbs 08/24/2024 Blood pressure systolic 136 mm Hg 08/24/20 24 Blood pressure diastolic 60 mm Hg 024 Heart Rate 70 /min 08/24/2024 Height 63.50 in 08/24/2024 BMI 20.99 kg/m2 08/24/2024 Encounters Encounter Location Date Provider Diagnosis [facility] [address] [facility] [address] [place] [phone] 08/24/2024 Keeley Betancourt Essential hypertensi on I10 [...] les ions on face. Would prefer seeing energy project engineer in [facility], . Dermatology Next Appt Details Follow Up: 6 Months, Reason: Provider Name:Keeley Giordano, 02/19/2026 10:45:00 AM, [address] [facility] [address] [facility], [address] , [place], [place], [phone], Progress Notes * LYNDAKESHANIHARIKADOB:1950 (75 yo F)Acc No.[id number]:08/24/2024 Progress Notes Patient: NIHARIKA VILLARREAL Provider: Keeley Betancourt M.D. :1950 A ge:74 Y S ex:Female Date:08/24/2024 Address:[address] [place] [phone] Subjective: * Chief Complaints: * 1 . [...] * Hospitalization/Major Diagno stic Procedure: Iveth carrion- [facility] in [place] 11/2014. * Family History: F ather: , [...] 08/24/2024 2:05 :00 PM > faxed to [facility] Lori Davenport 08/29/2024 11:34:40 AM [...] AM)?304* Value Reference Range V itamin B12 695 744-2798 - pg/mL * Keeley Betancourt 08/28/2024 9:43:21 PM >See phone encounter 9.?AK (actinic keratosis)? Referral To:. Dermatology??Dermatology ?Reason:skin lesions on face. Would prefer seeing energy project engineer in [facility] 10.?Screening for breast cancer?Imaging: Mammogram (Performed Date - 09/13/2024)?Negative, annual f/u* Value Reference Range r esult Negative, annual f/u * Nanci James 08/24/2024 2:05 :11 PM > faxed to [facility] Lori Davenport 08/29/2024 11:34:56 AM > 09/13 @ 3:15WuIsa harrison 09/18/2024 4:06:24 PM > pt informed of results * Immunizations: Fluzone High Dose (65yr and older) : 0.5 mL (Route: Intramuscular) given by Isa Araiza on Left Deltoid (Encounter for immunization) * Procedure Codes: 9 4760 [place], [address] CBC WITH AUTO DIFF, 53833 VENIPUNCT, ROUTINE* * Follow Up: 6 Months * Images: Billing Information: * Visit Code: 52390 Office Visit, Est Pt., Level 4. * Procedure Codes: [address] [place]. [address] CBC WITH AUTO DIFF. 45739 VENIPUNCT, ROUTINE*. * Electronic signature of Keeley Betancourt MD on 11/05/2025 at 12:57 PM EST Sign off status: Pending * Provider: Keeley Betancourt M.D. Date: Generated for Johni milagros/Lela/eTransmitting on: 12:57 PM EST History and Physical Notes * [...] les ions on face. Would prefer seeing energy project engineer in [facility]
--- OUTSIDE RECORDS SUMMARY | 2024-09-13 09:20 | XMS_ITS ---
Author Organization [facility] Address [address] [facility] [address] [phone] Care Team Providers Care Investment Director Name Role Phone Keeley Betancourt Primary Care [...] Active Encounters Encounter Location Date Provider Diagnosis [facility] [address] [facility] 36 [facility] [address] [place], [place] [phone] 09/13/2024 Keeley Betancourt Anemia D64.9 Assessments Encounter Date Diagnosis (ICD Code) Assessment Notes Treatment Notes Treatment Clinical Notes Section Notes 09/13/2024 Anemia (ICD-10 - D64.9) Plan Of Treatment Next Appt Details Provider Name:Keeley Giordano, 02/19/2026 10:45:00 AM, [address] [facility] 36 [facility], [address], [place], [place], [phone], Progress Notes * NIHARIKA NARVAEZDOB:1950 (75 yo F)Acc No.[id number]:09/13/2024 Patient: Chery TORRES NIHARIKA Provider: Keeley Betancourt M.D. :1950 A ge:74 Y S ex:Female Date:09/13/2024 Address:[address] [place], [place] [address] [id number] Subjective: * Chief Complaints: * 1 . [...] Information: * Visit Code: * Procedure Codes: 73594 ASSAY TEST FOR BLOOD, FECAL. Modifiers: QW * Electronic signature of Keeley Betancourt MD on 11/05/2025 at 12:58 PM EST Sign off status: Pending * Provider: Keeley Betancourt M.D. Date: 11/13/2023 Generated for Johni milagros/Lela/Juaquinsmitting on: 12:58 PM EST
--- OUTSIDE RECORDS SUMMARY | 2024-10-03 08:30 | XMS_ITS ---
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 Name Role Phone Keeley Betancourt Primary Care [...] Status Risk Notes Problem Iron deficiency anemia (18407384) Iron deficiency anemia (D50.9) Active confirmed Vital Signs Weight 120.6 lbs 10/03/2024 Blood pressure systolic 120 mm Hg 10/03/20 24 Blood pressure diastolic 60 mm Hg 024 Heart Rate 75 /min 10/03/2024 Height 63.50 in 10/03/2024 BMI 21.03 kg/m2 10/03/2024 Encounters Encounter Location Date Provider Diagnosis [facility] [address] [facility] [address] [place] [phone] 10/03/2024 Keeley Betancourt Iron deficiency anem ia [...] [address], [address], [place], [place], [id number], Progress Notes * NIHARIKA NARVAEZDOB:1950 (75 yo F)Acc No.[id number]:10/03/2024 Progress Notes Patient: NIHARIKA VILLARREAL Provider: Keeley Betancourt M.D. :1950 A ge:74 Y S ex:Female Date:10/03/2024 Address:[address] [place] [address], [place], [id number] Subjective: * Chief Complaints: * 1 . [...] * Hospitalization/Major Diagno stic Procedure: Iveth luisyaakov- [facility] in [place] 11/2014. * Family History: F ather: , [...] G 2211 Complex e/[place], [address] CAPILLARY BLOOD DRAW, 23817 CBC WITH AUTO DIFF * Follow Up: 6 Months * Images: Billing Information: * Visit Code: 18586 Office Visit, Est Pt., Level 3. * Procedure Codes: G2211 Complex e/[place]. [address] CAPILLARY BLOOD DRAW. 45305 CBC WITH AUTO DIFF. * Electronic signature of R Cheng Betancourt MD on 11/05/2025 at 12:58 PM EST Sign off status: Pending * Provider: Keeley Betancourt M.D. Date: 12/03/2023 Generated for Nithya linares/Lela/Aneesh on: 12:58 PM EST History and Physical Notes [...]
--- OUTSIDE RECORDS SUMMARY | 2025-02-15 04:15 | XMS_ITS ---
Author Organization [facility] Address [address] [facility] [address] [place] [phone] Care Team Providers Care Federal Judge Name Role Phone Keeley Betancourt Primary Care Provider [phone] Allergies Allergen (clinical drug ingredient) Drug/Non Drug [...] date:02/20/2025 09:44:27 PM Interpretation: Performing Lab: Notes/Report: CLIA: [id number] Gamal Haywood MD, Parish Nurse [facility] , [address], [place] [address] Test performed by [employer] Vitamin B12 218 801-8997 pg/mL P-Comprehensive Metabolic Pa yoseph (CMP) Reviewed date:02/20/2025 09:44:27 PM Interpretation: Performing Lab: Notes/Report: Test performed by [employer] [address] [place] [address] , [address], [place] [address] Gamal Haywood MD, Parish Nurse CLIA: [id number] Sodium 137 135-145 mmol/L Potassium 3.7 3.5-5.3 [...] Interpretation: Performing Lab: Notes/Report: Test performed by [employer] [address] [place] [address] , [place] [id number] Gamal Haywood MD, Parish Nurse CLIA: [id number] Iron 140 37-145 ug/dL P-Lipid Panel Reviewed date:02/20/2025 09:44:27 PM Interpretation: Performing Lab: Notes/Report: Test performed by [employer] [address] [place] [address] , [address], [place] [address] Gamal Haywood MD, Parish Nurse CLIA: [id number] Cholesterol 163 <200 mg/dL Triglycerides 106 <150 [...] Interpretation: Performing Lab: Notes/Report: Test performed by [employer] [address] [facility] [address], [place] [address] Gamal Haywood MD, Parish Nurse CLIA: [id number] TSH 2.17 0.43-5.25 mU/L P-Microalbumin/Creatinine, R andom Urine Sample Reviewed date:02/20/2025 09:44:27 PM Interpretation: Performing Lab: Notes/Report: Test performed by [employer] [address] [facility] , [address], [place] [address] Gamal Haywood MD, Parish Nurse CLIA: [id number] Albumin/Creatinine Ratio, Urine 18 0-30 ug/m g Microalbumin, Urine, Random 1.4 Creatinine, Urine 77.8 Reason For Referral Reason Dr. José Miguel [place] for PAD, carotid disease; dilated left atrium Diagnosis 1 PAD (peripheral beryl ry disease) (I73.9) [facility] Referring Provider First Name Keeley Gunn Referring Provider Last Name Serafin Referring Provider [facility] Referred Provider Cardiology, . Referred Provider Specialty Cardiovascul ar Disease General Notes Nanci James 2024 10:46:57 AM > faxed to [place] office as he does not have a [place] number Referral Priority Routine REASON FOR VISIT [...] Status Risk Notes Problem Vitamin B12 deficiency (379219587) Vitamin B12 deficiency (E53.8) Active confirmed Problem Osteoporosis (25404761) Osteoporosis, unspecified (M81.0) Active confirmed Vital Signs Weight 110.4 lbs 02/15/2025 Blood pressure systolic 120 mm Hg 02/16/20 25 Blood pressure diastolic 60 mm Hg 025 Height 63.50 in 02/15/2025 BMI 19.25 kg/m2 02/15/2025 Encounters Encounter Location Date Provider Diagnosis [facility] [address] [facility] [address] [place], [place] [phone] 02/15/2025 Keeley Betancourt Adult general medica l [...] Details 02/16/2025 02/16/2025, Dr. Guera Abdi in [place] for PAD, carotid disease; dilated left atrium , . Cardiology Next Appt Details Follow Up: 6 Months, Reason: Provider Name:Keeley Giordano, 02/19/2026 10:45:00 AM, [address] [facility] [address] [facility], [address] , [place], [place], [phone], Progress Notes * NIHARIKA NARVAEZDOB:1950 (75 yo F)Acc No.[id number]:02/15/2025 Annual Wellness Visit Patient: Chery VELKESHA NIHARIKA Provider: Keeley Betancourt M.D. :1950 A ge:74 Y S ex:Female Date:02/15/2025 Address:[address] [place], [place] [id number] Subjective: * Chief Complaints: * 1 . 6 months and AWV. * HPI: H PI: Patient is here today for a scheduled 6 month c heck up and a Medicare Annual Wellness Visit. Pt is fasting. C ardiology: She is just returned from wintering in [place]. She reports having some intermittent swelling in her feet and ankles while in [place]. She also complains of some exertional dyspnea. [...] * Hospitalization/Major Diagno stic Procedure: Iveth carrion- [facility] in [place] 11/2014. * Family History: [...] Cardiology??Cardiovascular Disease ?Reason:Dr. José Miguel Abdi in [place] for PAD, carotid disease; dilated left atrium [...] AM)* Value Reference Range V itamin B12 994 409-3319 - pg/mL * Keeley Betancourt 02/20/2025 09:44:09 [...] OF ACTIVITY ASSESS, 4040F PNEUMOC IMM ORDER/ADMIN, 90517 CBC WITH AUTO DIFF, 1125F AMNT PAIN [...] * Images: Billing Information: * Visit Code: 86270 Office Visit, Est Pt., Level 3. Modifiers: 25 * Procedure Codes: G0439 ANNUAL WELLNESS VST; PPS SUBSQT VST. G2211 Complex e/m visit add on. G044 ANNUAL DEPRESSION SCREENING 15 MIN. 1090F PRES/ABSN URINE INCON ASSESS. 3288F FALL RISK ASSESSMENT DOCD. 1170F FXNL STATUS ASSESSED. 1159F MED LIST DOCD IN RCRD. 1003F LEVEL OF ACTIVITY ASSESS. 4040F PNEUMOC IMM ORDER/ADMIN. 18229 CBC WITH AUTO DIFF. 1125F AMNT PAIN NOTED PAIN PRSNT. G8510 NEG SCR Depression PT NOT ELIG F/U/PLN DOC. 3074F SYST BP LT 130 MM HG. 3078F DIAST BP < 80 MM HG. * Electronic signature of Keeley Betancourt MD on 11/05/2025 at 12:55 PM EST Sign off status: Pending * Provider: Keeley Betancourt M.D. Date: 0 02/15/2025 Generated for Nithya milagros/Lela/eTransmitting on: 1 12:55 PM EST History and Physical Notes * [...] Betancourt Cardiology, . Dr. Mik Abdi in [place] for PAD, carotid disease; dilated left atrium
--- OUTSIDE RECORDS SUMMARY | 2025-04-12 09:15 | XMS_ITS ---
Author Organization [facility] Address [address] [facility] [address] [place] [phone] Care Team Providers Care Director Of Infection Prevention Name Role Phone Keeley Betancourt Primary Care [...] & BIPAP Hose 1 DIRECTED 11/10/2018 Active Vital Signs Weight 110.2 lbs 04/12/2025 Blood pressure systolic 120 mm Hg 04/12/20 25 Blood pressure diastolic 70 mm Hg 025 Height 63.50 in 04/12/2025 BMI 19.21 kg/m2 04/12/2025 Encounters Encounter Location Date Provider Diagnosis [facility] [address] [phone] 04/12/2025 Keeley Betancourt Tobacco use disorder F17.200 ; Chronic [...] repo rt test results, Reason: Provider Name:Keeley Luis A Patriciacharles su, 02/19/2026 10:45:00 AM, [address], [address], [place], [place], [phone], Progress Notes * NIHARIKA NARVAEZDOB:1950 (75 yo F)Acc No.[id number]:04/12/2025 Progress Notes Patient: NIHARIKA VILLARREAL Provider: Keeley Betancourt M.D. :1950 A ge:74 Y S ex:Female Date:04/12/2025 Address:[address] [place] [address], [id number] Subjective: * Chief Complaints: * 1 . F/U DR Coronado. * HPI: N eurology: Niharika had a recent routine follow-up with Dr. [...] * Hospitalization/Major Diagno stic Procedure: Iveth carrion- [facility] in [place] 11/2014. * Family History: F ather: , [...] t: 110.2, Temp: 98.6, BP: 120/70, Nurse: [facility], Ht: 63.50, BMI:19.21. * Examination: G eneral [...] * Images: Billing Information: * Visit Code: 97333 Office Visit, Est Pt., Level 3. * [...] M.D. Date: 0 04/12/2025 Generated for Nithya linares/Lela/Jackiitting on: 1 12:57 PM EST History and Physical Notes * Examination Category Sub-Category Detail Notes Category Not es General Examination Heart: RSR Lungs: Breath sounds are ge nerally diminished but otherwise clear. General Appearance: NAD
--- OUTSIDE RECORDS SUMMARY | 2025-08-21 04:00 | XMS_ITS ---
Author Organization [facility] Address [address] [facility] [address] [place] [id number] Care Team Providers Care Rail Signal Worker Name Role Phone Keeley Betancourt Primary Care Provider [phone] Allergies Allergen (clinical drug ingredient) Drug/Non Drug [...] Interpretation:normal Performing Lab: Notes/Report: Test performed by [facility] [address] [place], [place] [address] , [address], [place] [address] Gamal Haywood MD, Radio/Tv Technician CLIA: [id number] Sodium 135 135-145 mmol/L Potassium 4.8 3.5-5.3 [...] Interpretation:Abnormal Performing Lab: Notes/Report: Test performed by [facility] [address] [place] [address] , [address], [place] [address] Gamal Haywood MD, Radio/Tv Technician CLIA: [id number] Specimen Source Urine - Void Culture, Urine See Below See Microbiol ogy Report Pseudomonas aeruginosa 50,000-100,000 CF U/ml Pseudomonas aeruginosa Non-viable for sensitivities P-Lipid Panel Reviewed date:08/22/2025 11:35:09 AM Interpretation:LDL 76 Performing Lab: Notes/Report: Test performed by [facility] [address] [place], [place] [address] , [address], [place] [address] Gamal Haywood MD, Radio/Tv Technician CLIA: [id number] Lipid Panel Footnote See Below *Based on optimal reference values. Please refer to the DOS for additional information regarding diagnostic lipid reference ranges, patient management based on the recently updated lipid guidelines ([place] [employer]/[place] [employer] Association Task Force on Clinical Practice [...] Risk Notes Problem Small cell lung cancer ([id number]) Small cell lung cancer (C34.90) Active confirmed Vital Signs Weight 120 lbs 08/21/2025 Blood pressure systolic 120 mm Hg 08/21/20 25 Blood pressure diastolic 60 mm Hg 025 Heart Rate 42 /min 08/21/2025 Height 63.50 in 08/21/2025 BMI 20.92 kg/m2 08/21/2025 Encounters Encounter Location Date Provider Diagnosis [facility] [address] [facility] [address] [place], [place] [id number] 08/21/2025 Keeley Betancourt Essential hypertensi on I10 [...] Brannon, Dr. Rojas, and radiation oncology in [place]. 08/21/2025 Dyslipidemia (ICD-10 - E78.5) 08/21/2025 Primary [...] Brannon, Dr. Rojas, and radiation oncology in [place]. Next Appt Details Follow Up: 6 Months, Reason: Provider Name:Keeley Giordano, 02/19/2026 10:45:00 AM, [address] [facility], [address] , [place], [place], [id number], Progress Notes * NIHARIKA NARVAEZDOB:1950 (75 yo F)Acc No.[id number]:08/21/2025 Progress Notes Patient: S NIHARIKA TORRES Provider: Keeley Betancourt M.D. :1950 A ge:75 Y S ex:Female Date:08/21/2025 Address:[address], [id number] Subjective: * Chief Complaints: * 1 . [...] Rojas and also with radiation oncology in [place]. Her brain MRI and CT scan of [...] a heart cath in June by Dr. Adbi with finding of minor blockages and did [...] * Hospitalization/Major Diagno stic Procedure: Iveth carrion- [facility] in [place] 11/2014. * Family History: F [...] for immunization - Z23 1 7. B UT 20.0-20.9, adult - Z68.20? Plan: * Treatment: [...] Brannon, Dr. Rojas, and radiation oncology in [place].? 3.?Dyslipidemia? Refill Atorvastatin Calcium Tablet, 40 MG, [...] (Route: Intramuscular) given by ALEX Moss , Road Supervisor on Left Deltoid (Encounter for immunization) * [...] G 2211 Complex e/[place], [address] CBC WITH AUTO DIFF, 14259 Urinalysis, no micro, G8950 PREHTN/HTN BP DOC INDCD F/U DOC, G8752 MOST RECENT SYSTOLIC BP < 140MM HG, G8754 MOST RECENT DIASTOLIC BP < 90MM HG, 3074F SYST BP LT 130 MM HG, 3078F DIAST BP < 80 MM HG, G8420 BMI<30 AND >=22 CALC & DOCU * Follow Up: 6 Months * Images: Billing Information: * Visit Code: 35971 Office Visit, Est Pt., Level 4. * Procedure Codes: G2211 Complex e/[place]. [address] CBC WITH AUTO DIFF. 87571 Urinalysis, no micro. G8950 PREHTN/HTN BP DOC [...] M.D. Date: Generated for Nithya linares/Lela/eTransmitting on: 12:57 PM EST History and Physical [...] Rojas and also with radiation oncology in [place]. Her brain MRI and CT scan of [...]
--- OUTSIDE RECORDS SUMMARY | 2025-09-27 06:50 | XMS_ITS ---
Author Organization [facility] Address [address] [facility] [address] [place] [phone] Care Team Providers Care Coppersmith Apprentice Name Role Phone Keeley Betancourt Primary Care Provider Allergies Allergen (clinical drug ingredient) Drug/Non Drug Allergy documented on EMR Reaction Allergy Type Onset Date Status cefdinir Cefdinir disoriented Drug Allergy Activ e ibandronic acid Ibandronic Acid BP high and low Drug Allergy Active moxifloxacin Moxifloxacin GI Drug Allergy A ctive Results Component Value Reference Range Notes X ray : ribs left Reviewed date:10/01/2025 09:16:47 PM Interpretation:no fracture Performing Lab: Notes/Report: no fracture REASON FOR VISIT F/U [facility] Medications Medication SIG (Take, Route, Frequency, Duration) Notes Start Date End Date Status amLODIPine Besylate 10 MG 1 tab(s) Orall y once a day Active Metoprolol Succinate 100 MG 1 tab(s) ora lly once a day Active Benazepril HCl 40 MG 1 tab(s) orally onc e a day Active Flonase Allergy Relief 50 MCG/ACT 2 spray(s) intranasally once a day Active Furosemide 40 MG 1/2 tab(s) orally on ce a day Active traMADol HCl 50 MG 1 or 2 tabs Orally q 6h prn 09/27/2025 Active Atorvastatin Calcium 40 MG 1 tablet at b edtime Orally Once a day; Duration: 90 days Active Alendronate Sodium 70 MG 1 tab(s) orally once a week; Duration: 90 days Active Albuterol Sulfate HFA 108 (90 Base) MCG/ACT INHALE 2 PUFFS BY MOUTH EVERY 6 HOURS NEEDED; Duration: 25 Active Ferrous Sulfate 325 (65 Fe) MG 1 tablet Orally once daily 08/28/2024 Active Aspir-Low 81 MG 1 tab(s) orally once a day; Duration: 30 day(s) Active Omeprazole 40 MG 1 cap(s) orally once a day; Duration: 30 day(s) 11/28/2020 Active Nitroglycerin 0.4 MG 1 tab(s) sublingual ly every 5 minutes prn chest pain 11/28/2020 Active Vitamin D3 25 MCG (1000 UT) 1 capsule or ally once a day Active July Allergy 180 MG 1 tab(s) orally o nce a day 02/21/2021 Active Calcium + Vitamin D3 600-5 MG-MCG 1 tab(s) orally TID Active Nabumetone 500 MG 1 tablet Orally Twic e a day; Duration: 30 day(s) Active Megestrol Acetate 40 MG/ML 10ml Orally Once a day Active CareTouch CPAP & BIPAP Hose 1 DIRECTED 11/10/19 19 Active predniSONE 20 MG 1 tablet with food o r milk Orally Once a day Active DULoxetine HCl 60 MG 1 capsule Orally On ce a day; Duration: 90 days Active Clopidogrel Bisulfate 75 MG 1 tab(s) ora lly once a day Active Vital Signs Weight 121 lbs 09/27/2025 Blood pressure systolic 122 mm Hg 09/27/20 25 Blood pressure diastolic 68 mm Hg 025 Heart Rate 68 /min 09/27/2025 Height 63.50 in 09/27/2025 BMI 21.1 kg/m2 09/27/2025 Encounters Encounter Location Date Provider Diagnosis [facility] [address] [facility] [address], [place] [phone] 09/27/2025 R Luis A Serafin Fall W19.XXXA ; Rib pain R07.81 ; Small cell lung cancer C34.90 and Chronic obstructive pulmonary disease, unspecified COPD type J44.9 Assessments Encounter Date Diagnosis (ICD Code) Assessment Notes Treatment Notes Treatment Clinical Notes Section Notes 09/27/2025 Fall (ICD-10 - W19.XXXA) 09/27/2025 Rib pain (ICD-10 - R07.81) 09/27/2025 Small cell lung cancer (ICD-10 - C34.90) 09/27/2025 Chronic obstructive pulmonary disease, unspecified COPD type (ICD-10 - J44.9) 09/27/2025 Other Discharge summary with available lab/diagnostic imaging results obtained and reviewed. Discharge medication list reconciled. Appropriate counseling provided. Moderate Complexity Plan Of Treatment Medication Medication Name Sig Start Date Stop Date Notes traMADol HCl 50 MG 1 or 2 tabs Orally q6h prn 09/27/2025 Treatment Notes Assessment Notes Other Discharge summary wi th available lab/diagnostic imaging results obtained and reviewed. Discharge medication list reconciled. Appropriate counseling provided. Moderate Complexity Next Appt Details Follow Up: via phone to repo rt test results, Reason: Provider Name:Keeley Giordano, 02/19/2026 10:45:00 AM, [address], [address], [place], [place], [id number], Progress Notes * NIHARIKA NARVAEZDOB:1950 (75 yo F)Acc No.[id number]:09/27/2025 Patient: Chery TORRES NIHARIKA Provider: Keeley Betancourt M.D. :1950 A ge:75 Y S ex:Female Date:09/27/2025 Address:[address] [place] [address], [id number] Subjective: * Chief Complaints: * 1 . F/U [facility]. * HPI: H PI: Patient is here today for a Transition of Care Visit. Discharge from the following Facility: [facility] with Acute on Chronic Respiratory Failure, Anemia and Lung Cancer following shortness of breath for 2-3 days,Discharge date: 09/18/2025, Date of phone contact following discharge: 09/19/2025. See pts docs. . She is receiving home health PT/OT services. She did suffer a fall since going home. She lost her balance and fell against a chair hitting the left side of her chest. She initially did not notice any injury but since then has had pain in the left ribs radiating across her lower chest. Pain is pleuritic in nature. She denies increased shortness of breath, increased cough, or hemoptysis. * ROS: D ERMATOLOGY: no R radha. [...] * Hospitalization/Major Diagno stic Procedure: Iveth carrion- [facility] in [place] 11/2014. * Family History: F ather: , [...] ouside US: no. * Medications: T aking Flonase Allergy Relief 50 MCG/ACT Suspension 2 [...] capsule Orally Once a day , Taking predniSONE 20 MG Tablet 1 tablet with [...] tab(s) orally once a day , Taking Vitamin D3 25 MCG (1000 UT) Capsule 1 capsule orally once a day , Taking Ferrous Sulfate 325 (65 Fe) MG Tablet Delayed Release 1 tablet Orally once daily , Taking Albuterol Sulfate HFA 108 (90 Base) MCG/ACT Aerosol Solution INHALE 2 PUFFS BY MOUTH EVERY 6 HOURS NEEDED , Taking Alendronate Sodium 70 MG Tablet 1 tab(s) orally once a week , Taking Atorvastatin Calcium 40 MG Tablet 1 tablet at bedtime Orally Once a day , Medication List reviewed and reconciled with the patient * Allergies: M oxifloxacin: GI, Ibandronic Acid: BP high and low, Cefdinir: disoriented - Side Effects. Objective: * Vitals: W t: 121, Temp: 000, BP: 122/68, HR: 68, Nurse: pe, Ht: 63.50, BMI:21.1. * Examination: G eneral Examination: General Appearance: S he comes in by wheelchair accompanied by her . She appears mildly uncomfortable but no respiratory distress. Unable to obtain pulse ox reading due to cool extremities.. C hest: T here is tenderness over the left anterolateral lower chest wall and sternum. No bruising.. H eart: R SR. L ungs:?Generally diminished breath sounds but otherwise clear with no rales or wheezes. E xtremities: n o leg edema. Assessment: * Assessment: 1. F all - W19.XXXA (Primary) 2 . R ib pain - R07.81 3 .?Small cell lung cancer - C34.90 4 . C hronic obstructive pulmonary disease, unspecified COPD type - J44.9 Plan: * Treatment: 2. O thers Notes: Discharge summary with available lab/diagnostic imaging results obtained and reviewed. Discharge medication list reconciled. Appropriate counseling provided. Moderate Complexity * Imaging: * I maging: X ray : ribs left (Performed Date - 09/27/2025) n o fracture * Procedure Codes: 9 9495 TRANS CARE MGMT 14 DAY DISCH, 1111F DSCHR MED/CURENT MED MERGE, G2211 Complex e/m visit add on * Follow Up: v ia phone to report test results * Images: Billing Information: * Visit Code: 13074 Office Visit, Est Pt., Level 3. * Procedure Codes: 37549 TRANS CARE MGMT 14 DAY DISCH. 1111F DSCHR MED/CURENT MED MERGE. G2211 Complex e/m visit add on. * Electronic signature of Keeley Betancourt MD on 11/05/2025 at 12:57 PM EST Sign off status: Pending * Provider: Keeley Betancourt M.D. Date: 11/27/2024 Generated for Nithya linares/Lela/Jackiitting on: 12:57 PM EST History and Physical Notes * HPI (History of Present Illness) Category Sub-Category Detail Notes Category Not es HPI Patient is here toda y for a Transition of Care Visit. Discharge from the following Facility: [facility] with Acute on Chronic Respiratory Failure, Anemia and Lung Cancer following shortness of breath for 2-3 days,Discharge date: 09/18/2025, Date of phone contact following discharge: 09/19/2025. See pts docs. She is receiving home health PT/OT services. She did suffer a fall since going home. She lost her balance and fell against a chair hitting the left side of her chest. She initially did not notice any injury but since then has had pain in the left ribs radiating across her lower chest. Pain is pleuritic in nature. She denies increased shortness of breath, increased cough, or hemoptysis. Examination Category Sub-Category Detail Notes Category Not es General Examination Heart: RSR Lungs: Generally diminished breath sounds but otherwise clear with no rales or wheezes Extremities: no leg edema General Appearance: She comes in by whee lchair accompanied by her . She appears mildly uncomfortable but no respiratory distress. Unable to obtain pulse ox reading due to cool extremities. Chest: There is tenderness over the left anterolateral lower chest wall and sternum. No bruising.
--- OUTSIDE RECORDS SUMMARY | 2025-11-05 12:56 | XMS_ITS ---
Care Plan - [facility] Created on: November 05, 2025 Antonia Pickens : 1950 Sex: Female Author Organization [facility] Address [address] [place] [address] Phone Care Team Providers Care Travel Med Surg Rn Name Role Phone Rosemarie SINGH, Ezequiel Dubois Unavailable [phone] JEWELL SINGH, MAGO Unavailable [phone]
--- OUTSIDE RECORDS SUMMARY | 2025-11-05 12:56 | XMS_ITS | Clinical Summary ---
Author Organization [facility] , [facility] Address [address] [place] [address] Phone Care Team Providers Care Cut Off Saw Operator Name Role Phone Rosemarie SINGH, Ezequiel Dubois Unavailable U jose alejandro CORCORAN MD, MAGO Unavailable [phone] Reason for Visit and Chief Complaint [Patient Encounter] Problems Includes: Problems addressed during this encounter and other active Problems All Visits Onset Date Date of Diagnosis Resolved Date Provider Condition Status Joint Pain Hip Right 08/02/2025 08/02/2025 Young Neil PA-C Active Last Documented On 5 1:42AM ; [facility], [facility] Joint Pain Hip Bilateral 03/17/2018 03/17/2018 Ciarra [place] MD Active Last Documented On 5 1:39AM ; [facility], [facility] Plan of Treatment No [...] Ezequiel ruby MD Diagnosis: once a day Fill Status: Filled Last Documented On 4 8:31AM By Hung [place] ; [facility], [facility] traMADol HCl 50 MG Oral Tablet 05/01/2024 Provider: Ezequiel [place] MD Diagnosis: 1-2 po q 4-6h Fill Status: Filled Last Documented On 4 2:09PM By Hung [place] ; [facility], [facility] oxyCODONE HCl 5 MG Oral Tablet 05/01/2024 Provider: Ezequiel [place] MD Diagnosis: 1-2 po q 4-6h Fill Status: Filled Last Documented On 4 2:09PM By Hung [place] ; [facility], [facility] Tranexamic Acid 650 MG Oral Tablet 05/01/2024 Provider: Ezequiel ruby MD Diagnosis: as directed TAKE 3 TABLETS O NE TIME A DAY BEGINNING THE EVENING OF SURGERY FOR FOUR DAYS Fill Status: Filled Last Documented On 4 2:09PM By Hung [place] ; [facility], [facility] Ondansetron HCl 4 MG Oral Tablet 05/01/2024 Provider : Ezequiel [place] MD Diagnosis: [id number] Fill Status: Filled Last Documented On 4 2:09PM By Hung [place] ; [facility], [facility] Meloxicam 15 MG Oral Tablet 05/01/2024 Provider: Ezequiel [place] MD Diagnosis: once a day Fill Status: Not Filled Last Documented On 4 2:09PM By Hung [place] ; [facility], [facility] Colace 100 MG Oral Capsule 05/01/2024 Provider: Danna [place] MD Diagnosis: 1-2 tabs daily Fill Status: Filled Last Documented On 4 2:09PM By Hung [place] ; [facility], [facility] Cefadroxil 500 MG Oral Capsule 05/01/2024 Provider: Ezequiel [place] MD Diagnosis: twice a day Fill Status: Filled Last Documented On 4 2:09PM By Hung [place] ; [facility], [facility] Acetaminophen 500 MG Oral Tablet 05/01/2024 Provider : Ezequiel [place] MD Diagnosis: 2 three times a day Fill Status: Not Filled Last Documented On 4 2:09PM By Hung [place] ; [facility] Albuterol Sulfate HFA 108 (9 0 Base) MCG/ACT Inhalation Aerosol Solution 03/14/2024 Provider: Diagnosis: Last Documented On 4 7:33AM By Abdirashid Mayfield ; [facility], [facility] DULoxetine HCl 30 MG Oral Capsule Delayed Release Spri nkle 03/14/2024 Provider: Diagnosis: Last Documented On 4 7:34AM By Abdirashid [place] ; [facility] Metoprolol Succinate ER 100 MG Oral Tablet Extended Release 24 Hour 03/14/2024 Provider: Diagnosis: Last Documented On 4 7:35AM By Abdirashid [place] ; [facility] Benazepril HCl 40 MG Oral Tablet 03/03/2024 Provider : MAGO CORCORAN MD Diagnosis: Last Documented On 4 9:22AM By Paula Lewis ; [facility], [facility] Fluticasone Propionate 50 MC G/ACT Nasal Suspension 03/02/2024 Provider: MAGO CORCORAN MD Diagnosis: Last Documented On 4 9:22AM By Paula Lewis ; [facility] Atorvastatin Calcium 40 MG Oral Tablet 03/02/2024 Pr ovider: MAGO CORCORAN MD Diagnosis: Last Documented On 4 9:22AM By Paula Lewis ; [facility] amLODIPine Besylate 10 MG Oral Tablet 03/02/2024 Pro vider: MAGO CORCORAN MD Diagnosis: Last Documented On 4 9:22AM By Paula Lewis ; [facility] Alendronate Sodium 70 MG Oral Tablet 03/02/2024 Prov ider: MAGO CORCORAN MD Diagnosis: Last Documented On 4 9:22AM By Paula Lewis ; [facility] Furosemide 40 MG Oral Tablet 03/02/2024 Provider: MAGO CORCORAN MD Diagnosis: Last Documented On 4 9:22AM By Paula Lewis ; [facility], [facility] Clopidogrel Bisulfate 75 MG Oral Tablet 03/02/2024 P rovider: MAGO CORCORAN MD Diagnosis: Last Documented On 4 9:22AM By aPula Lewis ; [facility] Medications Administered Includes: Administered Medications from this encounter No Administered Medications Recorded Results Includes: Results discussed during this encounter No Results Recorded For Specified Dates History of Present Illness Includes: History of Present Illness from this encounter No History of Present Illness Recorded Social History Description Last Updated Sex - Female 08/03/2025 Last Documented On 5 2:46PM ; [facility] Smoking Status Unknown Medical History Includes: Medical History addressed during this encounter No Medical History Recorded Family History Includes: Family History addressed during this encounter No Family History Recorded Review of Systems Includes: Review of Systems from this encounter No Review of Systems Recorded Physical Exam Includes: Physical Exam from this encounter No Physical Exam Recorded Allergies Includes: Active Allergies Substance Type Reaction Onset Date Resolved Date Statu s Ibuprofen Allergy 03/17/2018 Active Last Documented On 5 1:44PM ; [facility] Care Cut Off Saw Operator Name (Identifier) Role/Relation Location/Telecom Last Documented By Ezequiel [place] MD ([id number]) Assigned practitioner (occupation) Last Documented On 08/03/2025 2:46PM ; [facility] MAGO CORCORAN MD ([id number]) [address] [place] [address], [place], [place], , [address] tel: Last Documented On 05/12/2018 1:07PM ; [facility] Encounters Encounter Provider Location (Healthcare Service Location) Date Check-In Time Check-Out Time Diagnosis Encounter Disposition [Patient Encounter] Ezequiel [place] MD [facility] 2023 9:27AM 11:59PM Payer Includes: Active Insurance Policies Plan Name (Payer ID) Coverage Type Member ID Group # Subscriber (ID) Relationship Effective Dates 1 - Medicare Part B [facility] ([id number]) [id number] Antonia Pickens Self Last Documented On 4 8:54AM ; [facility] 2 - [facility] [id number] Antonia Barber s Self 11/08/2017 - Unknown Last Documented On 8 2:34PM ; [facility]
--- OUTSIDE RECORDS SUMMARY | 2025-11-05 12:56 | XMS_ITS | Clinical Summary ---
Author Organization [facility] Address [address] [place] [address] Care Team Providers Care Assembler Dielectric Heater Name Role Phone Luis A Betancourt MD Primary Care Provider [phone] Stan Leroy MD Unavailable Allergies No known [...] Department Care Team Description 08/30/2025 Orders Only [facility] at [address] [address] Stan Leroy MD from Last [...] or (1 - 1-dose 75+ series) 2023 [id number] Vaccine (6 - 2024- season) 2025 08/25/2022, [...] ult from Last 3 Months Insurance MEDICARE [facility] Care Teams Assembler Dielectric Heater Relationship Specialty Start Date End Date Luis A Betancourt MD [facility] [id number] PCP - General 03/21/21 Stan Leroy MD [address] [place] [address] Medical Oncologist Hematology and Oncology 04/10/24 BAYLEE Henao [address] [place] [address] Referring Physician Orthopaedic Surgery 04/07/24
--- OUTSIDE RECORDS SUMMARY | 2025-11-05 12:57 | XMS_ITS | Patient Health Record ---
Author Organization [facility] Address [address] [facility] [address] [place] [id number] Care Team Providers Care Cassandra Consultant Name Role Phone Keeley Betancourt Primary Care Provider [phone] Allergies Allergen (clinical drug ingredient) Drug/Non Drug [...] Interpretation: Performing Lab: Notes/Report: Test performed by [facility] , [address], [place] [address] Gamal Haywood MD, Economic Specialist CLIA: [id number] Vitamin B12 079 609-0207 pg/mL P-Comprehensive Metabolic Pa yoseph (CMP) Reviewed date:02/20/2025 09:44:27 PM Interpretation: Performing Lab: Notes/Report: Test performed by [facility] [address] [place] [address] , [place] [address] Gamal Haywood MD, Economic Specialist CLIA: [id number] Sodium 137 135-145 mmol/L Potassium 3.7 3.5-5.3 [...] Interpretation: Performing Lab: Notes/Report: Test performed by [facility] [address] [place] [address] , [place] [address] Gamal Haywood MD, Economic Specialist CLIA: [id number] Iron 140 37-145 ug/dL P-Lipid Panel Reviewed date:02/20/2025 09:44:27 PM Interpretation: Performing Lab: Notes/Report: Test performed by [facility] [address] [place] [address] , [place] [address] Gamal Haywood MD, Economic Specialist CLIA: [id number] Cholesterol 163 <200 mg/dL Triglycerides 106 <150 [...] Interpretation: Performing Lab: Notes/Report: Test performed by [employer], [facility] [address] [place] [address] Jose Juan [place], [place] [address] Gamal Haywood MD, Economic Specialist CLIA: [id number] TSH 2.17 0.43-5.25 mU/L P-Microalbumin/Creatinine, R andom Urine Sample Reviewed date:02/20/2025 09:44:27 PM Interpretation: Performing Lab: Notes/Report: Test performed by [facility] [address] [place] [address] , [address], [place] [address] Gamal Haywood MD, Economic Specialist CLIA: [id number] Albumin/Creatinine Ratio, Urine 18 0-30 ug/mg Microalbumin, Urine, Random 1.4 Creatinine, Urine 77.8 X ray : ribs left Reviewed date:10/01/2025 09:16:47 PM Interpretation:no fracture Performing Lab: Notes/Report: no fracture Urinalysis - Inhouse Reviewed date:08/22/2025 11:35:09 AM [...] Interpretation:normal Performing Lab: Notes/Report: Test performed by [facility] [address] [place] [address] , [address], [place] [address] Gamal Haywood MD, Economic Specialist CLIA: [id number] Sodium 135 135-145 mmol/L Potassium 4.8 3.5-5.3 [...] Interpretation:Abnormal Performing Lab: Notes/Report: Test performed by [facility] [address] [place], [place] [address] , [address], [place] [address] Gamal Haywood MD, Economic Specialist CLIA: [id number] Specimen Source Urine - Void Culture, Urine See Below See Microbiol ogy Report Pseudomonas aeruginosa 50,000-100,000 CF U/ml Pseudomonas aeruginosa Non-viable for sensitivities P-Lipid Panel Reviewed date:08/22/2025 11:35:09 AM Interpretation:LDL 76 Performing Lab: Notes/Report: Test performed by [facility] [address] [place] [address] , [address], [place] [address] Gamal Haywood MD, Economic Specialist CLIA: [id number] Lipid Panel Footnote See Below *Based on optimal reference values. Please refer to the DOS for additional information regarding diagnostic lipid reference ranges, patient management based on the recently updated lipid guidelines ([place] [employer]/[place] [employer] Task Force on Clinical Practice [...] 76 Units: mg/dL % Change: -13% ____ CT Scan : Chest, low dose Reviewed date:05/10/2025 08:10:22 AM Interpretation:Abnormal Performing Lab: Notes/Report: Abnormal Reason For Referral Reason Dr. José Miguel Reyes for PAD, carotid disease; dilated left atrium Diagnosis 1 PAD (peripheral beryl ry disease) (I73.9) Referral Organization [facility] Referring Provider First Name Keeley Gunn Referring Provider Last Name Serafin Referring Provider Speciality [facility] ctice Referred Provider Cardiology, . Referred Provider Specialty Cardiovascul ar Disease General Notes Nanci James 2024 10:46:57 AM > faxed to [place] office as he does not have a [place] number Referral Priority Routine Reason Lung mass on chest C T Diagnosis [address] (R 93.89) Referral Organization [facility] Referring Provider First Name Keeley Gunn Referring Provider Last Name Serafin Ref[facility] Referred Organization [facility] OP Referred Provider Bartolome Brannon Referred Address [address] [address] [address] [id number], Referred Provider Specialty Pulmonary Di seases General Notes Nanci James 2024 08:41:46 AM > faxed to [facility] Pulmonology, Nanci James 05/17/2025 03:40:56 PM [...] 23 VACCINE IM Intramuscular 03/09/2017 Administe red tuberculin (ppd) ID Intradermal 07/27/2005 Administered tuberculin [...] Status Risk Notes Problem Vitamin D deficiency (62896649) Vitamin D deficiency (E55.9) Active confirmed Problem Vitamin B12 deficiency (931205162) Vitamin B12 deficiency (E53.8) Active confirmed Problem Anemia (584980866) Anemia (D64.9) Active confirmed Problem Essential hypertension (00240988) Essential hypertension (I10) Active confirmed Problem Abnormal mammogram (553595036) Abnormal mammogram (R92.8) Active confirmed Problem Seasonal allergy (327710112) Seasonal allergies (J30.2) Active confirmed Problem Iron deficiency anemia (98508629) Iron deficiency anemia (D50.9) Active confirmed Problem Primary osteoarthritis (787949879) Primary osteoarthritis involving multiple joints (M15.0) Active confirmed Problem COPD - Chronic obstructive pulmonary disease (90768140) Chronic obstructive pulmonary disease, unspecified COPD type (J44.9) Active confirmed Problem Obstructive sleep apnea syndrome (99959907) FRANSISCO (obstructive sleep apnea) (G47.33) Active confirmed Problem Localized, primary osteoarthritis of the pelvic region and thigh (576804511) 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) Active confirmed Problem Tobacco user (358543705) Cigarette nicotine dependence without complication (F17.210) Active confirmed Problem Dyslipidemia (837332548) Dyslipidemia (E78.5) Active confirmed Problem Peripheral vascular disease (594254771) PAD (peripheral artery disease) (I73.9) Active confirmed Problem Tobacco use (230081843) Tobacco use disorder (F17.200) Active confirmed Problem Age-related osteoporosis (978225963) Osteoporosis without current pathological fracture, unspecified osteoporosis type (M81.0) Active confirmed Problem Osteoporosis (06940784) Osteoporosis, unspecified (M81.0) Active confirmed Problem Ex-smoker (finding) (1397004) History of cigarette smoking (Z87.891) Active confirmed Problem Left carotid artery occlusion (646263634608820) Left carotid stenosis (I65.22) Active confirmed Problem Small cell lung cancer (887717920) Small cell lung cancer (C34.90) Active confirmed Problem S/P hip hemiarthroplasty (Z96.649) Active confirmed Vital Signs Heart Rate 68 /min 09/27/2025 Blood pressure diastolic 68 mm Hg 09/27/2025 Height 63.50 in 09/27/2025 Blood pressure systolic 122 mm Hg 09/27/2025 Weight 121 lbs 09/27/2025 BMI 21.1 kg/m2 09/27/2025 Encounters Encounter Location Date Provider Diagnosis [facility] [address] [id number] [facility] Z00.00 [...] in adult Z68.1 and Osteoporosis, unspecified M81.0 [facility] [address] [place] [id number] 04/12/2025 Luis A [place] Tobacco use disorder F17.200 ; Chronic obstructive pulmonary disease, unspecified COPD type J44.9 ; Atelectasis of both lungs J98.11 and FRANSISCO (obstructive sleep apnea) G47.[address] [place] [id number] 08/21/2025 R Luis A Serafin Essential hypertensi [...] immunization Z23 and BMI 20.0-20.9, adult Z68.20 [facility] [address] [place] [id number] 09/27/2025 R Luis A Serafin Fall W19.XXXA ; Rib pain R07.81 ; Small cell lung cancer C34.90 and Chronic obstructive pulmonary disease, unspecified COPD type J44.9 [facility] [address] [place], [place] [id number] 09/03/2025 R Luis A Serafin [facility] [address] [place], [place] [id number] 02/20/2025 R Luis A [facility]in [facility] [address] [place] [id number] 05/07/2025 R Luis A Serafin Abnormal chest CT R9 3.89 [facility] [address] [place] [id number] 08/22/2025 R Luis A Serafin [facility] [address] [place], [place] [id number] 08/27/2025 R Luis A Serafin [facility] [address] [place] [id number] 09/04/2025 R Luis A Serafin Dyslipidemia E78.5 [facility] [address] [place] [id number] 09/18/2025 R Luis A [place] [facility] [address] [place], [place] [id number] 09/21/2025 R Luis A Serafin [facility] [address] [place], [place] [id number] 09/25/2025 R Luis A Serafin [facility] [address] [place], [place] [id number] 09/28/2025 R Luis A Serafin [facility] [address] [place], [place] [id number] 10/22/2025 R Luis A Serafin Assessments Encounter Date Diagnosis (ICD Code) Assessment Notes Treatment Notes Treatment Clinical Notes Section Notes 04/12/2025 Chronic obstructive pulmonary disease, unspecified COPD type (ICD-10 - J44.9) 04/12/2025 Tobacco use disorder (ICD-10 - F17.200) 05/07/[address] (ICD-10 - R93.89) 08/21/2025 Essential hypertension (ICD-10 - I10) 08/21/2025 Chronic obstructive pulmonary disease, unspecified COPD type (ICD-10 - J44.9) 09/04/2025 Dyslipidemia (ICD-10 - E78.5) 09/27/2025 Fall (ICD-10 - W19.XXXA) 09/27/2025 Rib pain (ICD-10 - R07.81) 02/15/2025 Essential hypertension (ICD-10 - I10) 02/15/2025 Adult general medical examination (ICD-10 - Z00.00) Patient instructed to return to office Annually for Annual Wellness Visits to include annual screenings of Pain assessment, Functional Ability assessment, Cognitive Ability assessment, Fall Risk assessment, Depression screening and Bladder control screening. 02/15/2025 Dyslipidemia (ICD-10 - E78.5) 08/21/2025 Small cell lung cancer (ICD-10 - C34.90) Continue follow-up with Dr. Brannon, Dr. Rojas, and radiation oncology in [place]. 09/27/2025 Small cell lung cancer (ICD-10 - C34.90) 04/12/2025 Atelectasis of both lungs (ICD-10 - J98.11) 04/12/2025 FRANSISCO (obstructive sleep apnea) (ICD-10 - G47.33) 09/27/2025 Chronic obstructive pulmonary disease, unspecified COPD type (ICD-10 - J44.9) 08/21/2025 Dyslipidemia (ICD-10 - E78.5) 02/15/2025 Chronic obstructive pulmonary disease, unspecified COPD type (ICD-10 - J44.9) 02/15/2025 Primary osteoarthritis involving multiple joints (ICD-10 - M15.0) 08/21/2025 Primary osteoarthritis involving multiple joints (ICD-10 - M15.0) 08/21/2025 FRANSISCO (obstructive sleep apnea) (ICD-10 - G47.33) 02/15/2025 FRANSISCO (obstructive sleep apnea) (ICD-10 - G47.33) 02/15/2025 PAD (peripheral artery disease) (ICD-10 - I73.9) 08/21/2025 PAD (peripheral artery disease) (ICD-10 - I73.9) 08/21/2025 Seasonal allergies (ICD-10 - J30.2) 02/15/2025 Osteoporosis without current pathological fracture, unspecified osteoporosis type (ICD-10 - M81.0) 02/15/2025 Seasonal allergies (ICD-10 - J30.2) 08/21/2025 Vitamin D deficiency (ICD-10 - E55.9) 02/15/2025 Vitamin D deficiency (ICD-10 - E55.9) 08/21/2025 Tobacco use disorder (ICD-10 - F17.200) 02/15/2025 Tobacco use disorder (ICD-10 - F17.200) 08/21/2025 Anemia (ICD-10 - D64.9) 08/21/2025 Dysuria (ICD-10 - R30.0) 02/15/2025 Anemia (ICD-10 - D64.9) 02/15/2025 History of cigarette smoking (ICD-10 - Z87.891) 08/21/2025 History of cigarette smoking (ICD-10 - Z87.891) 08/21/2025 Vitamin B12 deficiency (ICD-10 - E53.8) 02/15/2025 Vitamin B12 deficiency (ICD-10 - E53.8) 02/15/2025 Weight loss, unintentional (ICD-10 - R63.4) Check labs. May need referral for EGD 08/21/2025 Osteoporosis, unspecified (ICD-10 - M81.0) 08/21/2025 Encounter for immunization (ICD-10 - Z23) 02/15/2025 Early satiety (ICD-10 - R68.81) 08/21/2025 BMI 20.0-20.9, adult (ICD-10 - Z68.20) [...] 02/19/2026 10:45:00 AM, [address] [facility], [address], [place], [place], [id number], Insurance Providers Payer Name Payer Address Payer Phone Subscriber Number Group Number Insured Name Patient Relationship to Insured Coverage Start Date Coverage End Date MEDICARE PART B [address] [address] [place] [id number] NIHARIKA NARVAEZ Self - [place] [id number] NIHARIKA NARVAEZ Self - patient is the [...] Hospitalization History Reason Date(Month/Year) Bronchitis- [facility] in [place] 11/2014
--- OUTSIDE RECORDS SUMMARY | 2025-11-05 12:58 | XMS_ITS | Referral Summary ---
Author Organization [facility] ([place], [place], [place], [place], [place]) Address [address] [place] [address] Care Team Providers Care Escrow Secretary Name Role Phone Ezequiel [place] MD Primary [...] the past 12 months, has t he [place], gas, oil, or water [employer] threatened to shut off services in your [...] your living situation today? I have a [facility] place to live 05/02/2024 Think about [...] speak a language other than Tajik at [facility]? No 05/02/2024 Do you want help [...] Treatment Not on file Insurance [place] [id number] MEDICARE PART A B Advance Directives For more information, please contact: [phone] * Full Code (Latest Code Status on File) Date Activated Date Inactivated Comments 05/02/2024 8:35 PM 05/03/2024 7:01 PM -Attempt Res uscitation if person has no pulse and is not breathing. -If no pulse or not breathing attempt CPR/CODE. -Call Rapid Response if patient is in distress. Care Teams Escrow Secretary Relationship Specialty Start Date End Date Ezequiel [place] MD PCP - General Orthopedic Surgery 05/02/24
--- OUTSIDE RECORDS SUMMARY | 2025-11-05 12:58 | XMS_ITS | Clinical Summary ---
Author Organization [facility] , [facility] Address [address] [place] [address] Phone Care Team Providers Care Insurance Administrative Assistant Name Role Phone Rosemarie SINGH, Ezequiel Dubois Unavailable [phone] JEWELL SINGH, MAGO Unavailable [phone] Reason for Visit and Chief Complaint The Chief Complaint is: Left DAENNA Problems Includes: Problems addressed during this encounter and other active Problems All Visits Onset Date Date of Diagnosis Resolved Date Provider Condition Status Joint Pain Hip Right 08/02/2025 08/02/2025 Young Neil PA-C Active Last Documented On 5 1:42AM ; [facility] Joint Pain Hip Bilateral 03/17/2018 03/17/2018 [facility] Emergency Department peggy Houston MD Active Last Documented On 1:39AM ; [facility] Plan of Treatment Fall [...] - Last Documented On 08/02/2025 2:10PM ; [facility] Patient is very pleased with the hip surgery, reports no issues today. We will plan for follow up 5 year postop intervals - Last Documented On 08/02/2025 2:10PM ; [facility] Pending Tests Order Diagnosis Results Due Ordering P rovider Lab Hemoglobin A1c 04/19/24 Young cullen PA-C Last Documented On 4 8:14AM ; [facility] Lab CBC With Differential/Platelet 04/19 Young Farias Rashaad [place]-C Last Documented On 4 8:14AM ; [facility] Lab Prothrombin Time (PT) 04/19/24 Ann-Marieteena Farias Rashaad PA-C Last Documented On 4 8:14AM ; [facility] Lab PTT, Activated 04/19/24 Young cullen PA-C Last Documented On 4 8:14AM ; [facility] Lab Prealbumin 04/19/24 Young Farias Rashaad [place]-C Last Documented On 4 8:14AM ; [facility] Lab Fructosamine 04/19/24 Young Farias Maura jaime PA-C Last Documented On 4 8:14AM ; [facility] Lab MRSA by DA 04/19/24 Young Farias Rashaad [place]-C Last Documented On 4 8:14AM ; [facility] Lab Comp. Metabolic Panel (14) 04/19/24 Young Dinora Rashaad [place]-C Last Documented On 4 8:14AM ; [facility], [facility] Instructions to patient Instructions for patient to see pcp for bp Last Documented On 5 1:44PM ; [facility], [facility] Intervention and counseling 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 of tobacco use Last Documented On 5 1:44PM ; [facility], [facility] Assessments Includes: Assessments from this encounter Findings 1 year status post left DEANNA - Last Documented On 08/02/2025 2:10PM ; [facility], [facility] Instructions Includes: Instructions from this encounter Instructions to patient Instructions for patient to see pcp for bp Last Documented On 5 1:44PM ; [facility], [facility] Intervention and counseling 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 of tobacco use Last Documented On 5 1:44PM ; [facility], [facility] Medical Equipment - Implanted Devices Includes: Current Devices No Medical Equipment Recorded Medications Includes: Medications discussed during this encounter and other current Medications Current Medications (continue as prescribed) Aspirin 81 81 MG Oral Tablet Chewable 05/02/2024 Provider: Ezequiel ruby MD Diagnosis: once a day Fill Status: Filled Last Documented On 4 8:31AM By Hung Houston ; [facility] traMADol HCl 50 MG Oral Tablet 05/01/2024 Provider: Ezequiel Houston MD Diagnosis: 1-2 po q 4-6h Fill Status: Filled Last Documented On 4 2:09PM By Hung Houston ; [facility] oxyCODONE HCl 5 MG Oral Tablet 05/01/2024 Provider: Ezequiel Houston MD Diagnosis: 1-2 po q 4-6h Fill Status: Filled Last Documented On 4 2:09PM By Hung Houston ; [facility] Tranexamic Acid 650 MG Oral Tablet 05/01/2024 Provider: Ezequiel ruby MD Diagnosis: as directed TAKE 3 TABLETS O NE TIME A DAY BEGINNING THE EVENING OF SURGERY FOR FOUR DAYS Fill Status: Filled Last Documented On 4 2:09PM By Hung Houston ; [facility] Ondansetron HCl 4 MG Oral Tablet 05/01/2024 Provider : Ezequiel Houston MD Diagnosis: [id number] Fill Status: Filled Last Documented On 4 2:09PM By Hung Houston ; [facility] Meloxicam 15 MG Oral Tablet 05/01/2024 Provider: Ezequiel Houston MD Diagnosis: once a day Fill Status: Not Filled Last Documented On 4 2:09PM By Hung Houston ; [facility] Colace 100 MG Oral Capsule 05/01/2024 Provider: Danna Houston MD Diagnosis: 1-2 tabs daily Fill Status: Filled Last Documented On 4 2:09PM By Hung Houston ; [facility] Cefadroxil 500 MG Oral Capsule 05/01/2024 Provider: Ezequiel Houston MD Diagnosis: twice a day Fill Status: Filled Last Documented On 4 2:09PM By Hung Houston ; [facility] Acetaminophen 500 MG Oral Tablet 05/01/2024 Provider : Ezequiel Houston MD Diagnosis: 2 three times a day Fill Status: Not Filled Last Documented On 4 2:09PM By Hung Houston ; [facility], [facility] Albuterol Sulfate HFA 108 (9 0 Base) MCG/ACT Inhalation Aerosol Solution 03/14/2024 Provider: Diagnosis: Last Documented On 4 7:33AM By Abdirashid Mayfield ; [facility], [facility] DULoxetine HCl 30 MG Oral Capsule Delayed Release Spri nkle 03/14/2024 Provider: Diagnosis: Last Documented On 4 7:34AM By Abdirashid Mayfield ; [facility], [facility] Metoprolol Succinate ER 100 MG Oral Tablet Extended Release 24 Hour 03/14/2024 Provider: Diagnosis: Last Documented On 4 7:35AM By Abdirashid Mayfield ; [facility], [facility] Benazepril HCl 40 MG Oral Tablet 03/03/2024 Provider : MAGO CORCORAN MD Diagnosis: Last Documented On 4 9:22AM By Paula Lewis ; [facility], [facility] Fluticasone Propionate 50 MC G/ACT Nasal Suspension 03/02/2024 Provider: MAGO CORCORAN MD Diagnosis: Last Documented On 4 9:22AM By Paula Lewis ; [facility], [facility] Atorvastatin Calcium 40 MG Oral Tablet 03/02/2024 Pr ovider: MAGO CORCORAN MD Diagnosis: Last Documented On 4 9:22AM By Paula Lewis ; [facility], [facility] amLODIPine Besylate 10 MG Oral Tablet 03/02/2024 Pro vider: MAGO CORCORAN MD Diagnosis: Last Documented On 4 9:22AM By Paula Lewis ; [facility], [facility] Alendronate Sodium 70 MG Oral Tablet 03/02/2024 Prov ider: MAGO CORCORAN MD Diagnosis: Last Documented On 4 9:22AM By Paula Lewis ; [facility], [facility] Furosemide 40 MG Oral Tablet 03/02/2024 Provider: MAGO CORCORAN MD Diagnosis: Last Documented On 4 9:22AM By Paula Lewis ; [facility] Clopidogrel Bisulfate 75 MG Oral Tablet 03/02/2024 P rovider: MAGO CORCORAN MD Diagnosis: Last Documented On 4 9:22AM By Paula Lewis ; [facility], [facility] Past Medications on file TraMADol HCl 50MG Oral Tablet 03/22/2018 - 03/27/2018 Provider: Ezequiel ravi MD Diagnosis: 2 Tablets every 6 hours PRN pain for surgery DO NOT FILL TILL 18 Last Documented On 8 10:34AM By Bella Deleon ; [facility], [facility] OxyCODONE HCl 5MG Oral Tablet 03/22/2018 - 03/24/2018 Provider: Ezequiel ravi MD Diagnosis: 1-2 pills every 4-6 hours [place] pain for surgery DO NOT FILL TILL 5-18 Last Documented On 8 10:33AM By Bella Deleon ; [facility], [facility] Colace 100MG Oral Capsule 03/22/2018 - 06/20/2018 Provider: Ezequiel ravi MD Diagnosis: 1-2 tabs daily for surgery * *DO NOT FILL TILL 18 Last Documented On 8 10:40AM By Bella Deleon ; [facility], [facility] Acetaminophen 500MG Oral Tablet 03/22/2018 - 03/30/2018 Provider: Ezequiel Houston MD Diagnosis: 2 three times a day for surg tiffanie DO NOT FILL TILL 18 Last Documented On 8 10:40AM By Bella Deleon ; [facility], [facility] Mupirocin 2% External Ointment 03/21/2018 - 03/26/2018 Provider: Ezequiel ravi MD Diagnosis: Apply to nostrils 3 time a d ay 5 days prior to surgery. Last Documented On 8 10:49AM By Jaja Rutledge ; [facility], [facility] Medications Administered Includes: Administered Medications from this encounter No Administered Medications Recorded Vital Signs Includes: Vital Signs from this encounter Vital Name 08/02/2025 01:44P Height (in) 62 Weight (lb) 115 Body Mass Index 21 Body Surface Area 1.5 Note: ab Last Documented: On 08/02/2025 1:59PM ; [facility], [facility] Results Includes: Results discussed during this [...] diet 08/02/2025 Last Documented On 2:10PM ; [facility], [facility] Not using drugs 08/02/2025 Last Documented On 2:10PM ; [facility], [facility] Alcohol use 03/07/2024 Last Documented On 1:44PM ; [facility], [facility] Caffeine use 03/07/2024 Last Documented On 1:44PM ; [facility], [facility] Not exercising regularly 03/07/2024 Last Documented On 1:44PM ; [facility], [facility] Yes, current smoker. 03/07/2024 Last Documented On 1:44PM ; [facility], [facility] Tobacco use 03/07/2024 Last Documented On 1:44PM ; [facility], [facility] Smoking status Current some day smoker 0 03/17/2018 Last Documented On 1:44PM ; [facility], [facility] Current smoker 03/17/2018 Last Documented On 5 1:44PM ; [facility], [facility] Sex - Female 08/03/2025 Last Documented On 2:46PM ; [facility], [facility] Procedures and Surgical History Includes: Procedures from this encounter Procedures Code Diagnosis Performing Provider Service Location Service Date PELVIS w/ 2-3 VIEW HIP (RIGHT) 70931 Unilateral primary osteoarthritis, right hip, Presence of right artificial hip joint [facility] 08/02/2025 Last Documented On 5 2:46PM ; [facility], [facility] history of orthopedic options: physical therapy Last Documented On 1:44PM ; [facility], [facility] 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 4000F Last Documented On 1:44PM ; [facility], [facility] use of tobacco assessment performed 1000F Last Documented On 1:44PM ; [facility] patient screened for future fall risk: documentation of any fall with injury in past year 1100F Last Documented On 1:44PM ; [facility] review of medications documented 1160F Last Documented On 1:44PM ; [facility] Clinical summary provided to patient Last Documented On 1:44PM ; [facility] an X-ray was performed 61864 Last Documented On 1:44PM ; [facility] an MRI was performed 32701 Last Documented On 1:44PM ; [facility] Surgical History Last Updated History of Previous Fractures 03/07/2024 Last Documented On 1:44PM ; [facility] History of total hip replacement 024 Last Documented On 1:44PM ; [facility] History of back surgery 03/17/2018 Last Documented On 1:44PM ; [facility] Medical History Includes: Medical History addressed during this encounter Description Last Updated History of arthritis 03/07/2024 Last Documented On 1:44PM ; [facility] History of History of Emphysema 03/07/20 Last Documented On 1:44PM ; [facility] History of Sleep Apnea 03/07/2024 Last Documented On 1:44PM ; [facility] Arthritic joint problems 03/17/2018 Last Documented On 1:44PM ; [facility] Family History Includes: Family History addressed during this encounter Description Last Updated Diabetes mellitus 03/07/2024 Last Documented On 1:44PM ; [facility] Family history of heart disease 03/07/20 24 Last Documented On 1:44PM ; [facility] Family history of osteoporosis 4 Last Documented On 1:44PM ; [facility] Fraternal history of diabetes mellitus 0 03/17/2018 Last Documented On 5 1:44PM ; [facility] Maternal history of family history of he art disease 03/17/2018 Last Documented On 5 1:44PM ; [facility] Maternal history of osteoporosis 018 Last Documented On 5 1:44PM ; [facility] Paternal aunt's history of rheumatoid ar thritis 03/17/2018 Last Documented On 5 1:44PM ; [facility], [facility] Review of Systems Includes: Review of [...] Status from this encounter Description No anxiety Last Documented On 5 1:44PM ; [facility], [facility] Physical Exam Includes: Physical Exam from this encounter Allergies Includes: Active Allergies Substance Type Reaction Onset Date Resolved Date Statu s Ibuprofen Allergy 03/17/2018 Active Last Documented On 5 1:44PM ; [facility] Care Insurance Administrative Assistant Name (Identifier) Role/Relation Location/Telecom Last Documented By Ezequiel Houston MD ([id number]) Assigned practitioner (occupation) tel:[phone] Last Documented On 08/03/2025 2:46PM ; [facility] MAGO CORCORAN MD ([id number]) [address], [place], , [address] tel:[phone] Last Documented On 05/12/2018 1:07PM ; [facility] Encounters Encounter Provider Location (Healthcare Service Location) Date Check-In Time Check-Out Time Diagnosis Encounter Disposition Follow Up Young Neil PA-C [facility] 2024 1:34PM 2:08PM Payer Includes: Active Insurance Policies Plan Name (Payer ID) Coverage Type Member ID Group # Subscriber (ID) Relationship Effective Dates 1 - Medicare Part B [facility] ([id number]) [id number] Antonia Pickens Self Last Documented On 4 8:54AM ; [facility] 2 - [facility] ([id number]) [id number] Antonia grant Self 11/08/2017 - Unknown Last Documented On 8 2:34PM ; [facility] Clinical Notes Includes: Clinical Notes from this encounter * Progress note Date Encounter Last Documented by 08/02/2025 Follow Up Last documented on 08/02/2025; 2:10 PM, Young Neil PA-C; [facility] Active Problems & Conditions [...] - Ondansetron HCl 4 MG Oral Tablet 3bpf6-1m, 5 days, 0 refills - oxyCODONE HCl [...] Care Team - MAGO CORCORAN MD - [employer]
--- OUTSIDE RECORDS SUMMARY | 2025-11-05 12:58 | XMS_ITS | Encounter Summary ---
Author Organization [facility] Address [address] [place] [address] Care Team Providers Care Lift Builder Whole Name Role Phone Traiq Betancourt MD Primary Care Provider Encounter Details Date Type Department Care Team (Late st Contact Info) Description 07/06/2025 Results Follow-Up [facility] [address] [facility] [address] [place] [address] José Miguel Abdi MD [address] [facility] [address] [place] [address] Social History Tobacco Use Types Packs/Day Years [...] Description 06/24/2026 10:30 AM EDT Office Visit [facility] [address] [facility] [address] [address] [place] [address] José Miguel Abdi MD [address] [facility] [address] [place] [address] documented as of this encounter Visit Diagnoses Not on filedocumented in this encounter Care Teams Lift Builder Whole Relationship Specialty Start Date End Date Tariq Bteancourt MD [address] [facility] [address] [place] [address] PCP - General Family Medicine 03/06/25 documented as of this encounter
--- OUTSIDE RECORDS SUMMARY | 2025-11-05 12:58 | XMS_ITS | Clinical Summary ---
Author Organization [facility] , [facility] Address [address] [place] [address] Phone Care Team Providers Care Senior Product Manager Name Role Phone Rosemarie SINGH, Ezequiel Dubois Unavailable + [phone] MAGO CORCORAN MD Unavailable [phone] Reason for Visit and Chief Complaint [facility] Problems Includes: Problems addressed during this encounter and other active Problems All Visits Onset Date Date of Diagnosis Resolved Date Provider Condition Status Joint Pain Hip Right 08/02/2025 08/02/2025 Young Neil PA-C Active Last Documented On 5 1:42AM ; [facility] Joint Pain Hip Bilateral 03/17/2018 03/17/2018 Ciarra Houston MD Active Last Documented On 5 1:39AM ; [facility] Plan of Treatment No Plan of [...] Tablet Chewable Provider: Ezequiel ruby MD Diagnosis: Fill Status: Filled Last Documented On 4 8:26AM By Hung Houston ; [facility] Current Medications (continue as prescribed) Aspirin 81 81 MG Oral Tablet Chewable 05/02/2024 Provider: Ezequiel ruby MD Diagnosis: once a day Fill Status: Filled Last Documented On 4 8:31AM By Hung Houston ; [facility], [facility] traMADol HCl 50 MG Oral Tablet 05/01/2024 Provider: Ezequiel Houston MD Diagnosis: 1-2 po q 4-6h Fill Status: Filled Last Documented On 4 2:09PM By Hung Houston ; [facility] oxyCODONE HCl 5 MG Oral Tablet 05/01/2024 Provider: Ezequiel Houston MD Diagnosis: 1-2 po q 4-6h Fill Status: Filled Last Documented On 4 2:09PM By Hung Houston ; [facility] Tranexamic Acid 650 MG Oral Tablet 05/01/2024 Provider: Ezequiel ruby MD Diagnosis: as directed TAKE 3 TABLETS O NE TIME A DAY BEGINNING THE EVENING OF SURGERY FOR FOUR DAYS Fill Status: Filled Last Documented On 4 2:09PM By Hung Houston ; [facility] Ondansetron HCl 4 MG Oral Tablet 05/01/2024 Provider : Ezequiel Houston MD Diagnosis: 5vdo3-4i Fill Status: Filled Last Documented On 4 2:09PM By Hung Houston ; [facility] Meloxicam 15 MG Oral Tablet 05/01/2024 Provider: Ezequiel Houston MD Diagnosis: once a day Fill Status: Not Filled Last Documented On 4 2:09PM By Hung Houston ; [facility], [facility] Colace 100 MG Oral Capsule 05/01/2024 Provider: Danna Houston MD Diagnosis: 1-2 tabs daily Fill Status: Filled Last Documented On 4 2:09PM By Hung Houston ; [facility] Cefadroxil 500 MG Oral Capsule 05/01/2024 Provider: Ezequiel Houston MD Diagnosis: twice a day Fill Status: Filled Last Documented On 4 2:09PM By Hung Houston ; [facility] Acetaminophen 500 MG Oral Tablet 05/01/2024 Provider : Ezequiel Houston MD Diagnosis: 2 three times a day Fill Status: Not Filled Last Documented On 4 2:09PM By Hung Houston ; [facility] Albuterol Sulfate HFA 108 (9 0 Base) MCG/ACT Inhalation Aerosol Solution 03/14/2024 Provider: Diagnosis: Last Documented On 4 7:33AM By Abdirashid Mayfield ; [facility] DULoxetine HCl 30 MG Oral Capsule Delayed Release Spri nkle 03/14/2024 Provider: Diagnosis: Last Documented On 4 7:34AM By Abdirashid Mayfield ; [facility] Metoprolol Succinate ER 100 MG Oral Tablet Extended Release 24 Hour 03/14/2024 Provider: Diagnosis: Last Documented On 4 7:35AM By Abdirashid Mayfield ; [facility] Benazepril HCl 40 MG Oral Tablet 03/03/2024 Provider : MAGO CORCORAN MD Diagnosis: Last Documented On 4 9:22AM By Paula Lewis ; [facility] Fluticasone Propionate 50 MC G/ACT Nasal Suspension 03/02/2024 Provider: MAGO CORCORAN MD Diagnosis: Last Documented On 4 9:22AM By Puala Lewis ; [facility] Atorvastatin Calcium 40 MG Oral Tablet 03/02/2024 Pr ovider: MAGO CORCORAN MD Diagnosis: Last Documented On 4 9:22AM By Paula Lewis ; [facility] amLODIPine Besylate 10 MG Oral Tablet 03/02/2024 Pro vider: MAGO CORCORAN MD Diagnosis: Last Documented On 4 9:22AM By Paula Lewis ; [facility] Alendronate Sodium 70 MG Oral Tablet 03/02/2024 Prov ider: MAGO CORCORAN MD Diagnosis: Last Documented On 4 9:22AM By Paula Lewis ; [facility] Furosemide 40 MG Oral Tablet 03/02/2024 Provider: MAGO CORCORAN MD Diagnosis: Last Documented On 4 9:22AM By Paula Lewis ; [facility] Clopidogrel Bisulfate 75 MG Oral Tablet 03/02/2024 P rovider: MAGO CORCORAN MD Diagnosis: Last Documented On 4 9:22AM By Paula Lewis ; [facility] Medications Administered Includes: Administered Medications from this encounter No Administered Medications Recorded Results Includes: Results discussed during this encounter No Results Recorded For Specified Dates History of Present Illness Includes: History of Present Illness from this encounter No History of Present Illness Recorded Social History Description Last Updated Sex - Female 08/03/2025 Last Documented On 5 2:46PM ; [facility] Smoking Status Unknown Medical History Includes: Medical [...] Last Documented On 5 1:44PM ; [facility] Care Senior Product Manager Name (Identifier) Role/Relation Location/Telecom Last Documented By Ezequiel Houston MD ([id number]) Assigned practitioner (occupation) tel:[phone] Last Documented On 08/03/2025 2:46PM ; [facility] MAGO CORCORAN MD ([id number]) [address] [place] [address] [address], [place], [place], , [address] tel:[phone] Last Documented On 05/12/2018 1:07PM ; [facility] Encounters Encounter Provider Location (Healthcare Service Location) Date Check-In Time Check-Out Time Diagnosis Encounter Disposition [facility] Ezequiel Houston MD Surgery 05/02 1:45PM 11:59PM Payer Includes: Active Insurance Policies Plan Name (Payer ID) Coverage Type Member ID Group # Subscriber (ID) Relationship Effective Dates 1 - Medicare Part B [facility] ([id number]) [id number] Antonia Pickens Self Last Documented On 4 8:54AM ; [facility] 2 - [facility] [id number]) [id number] Antonia Barber s Self 11/08/2017 - Unknown Last Documented On 8 2:34PM ; [facility]
--- OUTSIDE RECORDS SUMMARY | 2025-11-05 12:58 | XMS_ITS | Clinical Summary ---
Author Organization [facility] , [facility] Address [address] [place] [address] Phone Care Team Providers Care Furnace Mechanic Helper Name Role Phone Rosemarie SINGH, Ezequiel Dubois Unavailable [phone] JEWELL SINGH, MAGO Unavailable [phone] Reason for Visit and Chief Complaint The Chief Complaint is: Left DEANNA Problems Includes: Problems addressed during this encounter and other active Problems All Visits Onset Date Date of Diagnosis Resolved Date Provider Condition Status Joint Pain Hip Right 08/02/2025 08/02/2025 Young Neil PA-C Active Last Documented On 5 1:42AM ; [facility] Joint Pain Hip Bilateral 03/17/2018 03/17/2018 [facility] peggy Houston MD Active Last Documented On 5 1:39AM ; [facility] Plan of Treatment - Patient screened for future fall risk: documentation of any fall with injury in past year - Last Documented On 08/01/2024 2:37PM ; [facility] Fall Risk Assessment: This patient has been [...] - Last Documented On 08/01/2024 2:37PM ; [facility] Patient is now almost 12 weeks postop right total hip arthroplasty. Doing well no complaints. Continue with physical therapy and home exercise program. Cane for stability. Follow up in the office in 1 year with repeat x-rays - Last Documented On 08/01/2024 2:37PM ; [facility] Instructions to patient Instructions for patient to see pcp for bp Last Documented On 4 2:02PM ; [facility] Intervention and counseling 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 of tobacco use Last Documented On 4 2:02PM ; [facility] Assessments Includes: Assessments from this encounter Findings Twelve weeks postop right anterior total hip - Last Documented On 08/01/2024 2:37PM ; [facility] Instructions Includes: Instructions from this encounter Instructions to patient Instructions for patient to see pcp for bp Last Documented On 4 2:02PM ; [facility] Intervention and counseling 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 of tobacco use Last Documented On 4 2:02PM ; [facility] Medical Equipment - Implanted Devices Includes: Current Devices No Medical Equipment Recorded Medications Includes: Medications discussed during this encounter and other current Medications Current Medications (continue as prescribed) Aspirin 81 81 MG Oral Tablet Chewable 05/02/2024 Provider: Ezequiel ruby MD Diagnosis: once a day Fill Status: Filled Last Documented On 4 8:31AM By Hung Houston ; [facility] traMADol HCl 50 MG Oral Tablet 05/01/2024 Provider: Ezequiel Houston MD Diagnosis: 1-2 po q 4-6h Fill Status: Filled Last Documented On 4 2:09PM By Hung Houston ; [facility] oxyCODONE HCl 5 MG Oral Tablet 05/01/2024 Provider: Ezequiel Houston MD Diagnosis: 1-2 po q 4-6h Fill Status: Filled Last Documented On 4 2:09PM By Hung Houston ; [facility] Tranexamic Acid 650 MG Oral Tablet 05/01/2024 Provider: Ezequiel ruby MD Diagnosis: as directed TAKE 3 TABLETS O NE TIME A DAY BEGINNING THE EVENING OF SURGERY FOR FOUR DAYS Fill Status: Filled Last Documented On 4 2:09PM By Hung Houston ; [facility] Ondansetron HCl 4 MG Oral Tablet 05/01/2024 Provider : Ezequiel Houston MD Diagnosis: 9glm3-6a Fill Status: Filled Last Documented On 4 2:09PM By Hung Houston ; [facility], [facility] Meloxicam 15 MG Oral Tablet 05/01/2024 Provider: Ezequiel Houstno MD Diagnosis: once a day Fill Status: Not Filled Last Documented On 4 2:09PM By Hung Houston ; [facility], [facility] Colace 100 MG Oral Capsule 05/01/2024 Provider: Danna Houston MD Diagnosis: 1-2 tabs daily Fill Status: Filled Last Documented On 4 2:09PM By Hung Houston ; [facility], [facility] Cefadroxil 500 MG Oral Capsule 05/01/2024 Provider: Ezequiel Houston MD Diagnosis: twice a day Fill Status: Filled Last Documented On 4 2:09PM By Hung Houston ; [facility], [facility] Acetaminophen 500 MG Oral Tablet 05/01/2024 Provider : Ezequiel Houston MD Diagnosis: 2 three times a day Fill Status: Not Filled Last Documented On 4 2:09PM By Hung Houston ; [facility], [facility] Albuterol Sulfate HFA 108 (9 0 Base) MCG/ACT Inhalation Aerosol Solution 03/14/2024 Provider: Diagnosis: Last Documented On 4 7:33AM By Abdirashid Mayfield ; [facility], [facility] DULoxetine HCl 30 MG Oral Capsule Delayed Release Spri nkle 03/14/2024 Provider: Diagnosis: Last Documented On 4 7:34AM By Abdirashid Mayfield ; [facility], [facility] Metoprolol Succinate ER 100 MG Oral Tablet Extended Release 24 Hour 03/14/2024 Provider: Diagnosis: Last Documented On 4 7:35AM By Abdirashid Mayfield ; [facility], [facility] Benazepril HCl 40 MG Oral Tablet 03/03/2024 Provider : MAGO CORCORAN MD Diagnosis: Last Documented On 4 9:22AM By Paula Lewis ; [facility], [facility] Fluticasone Propionate 50 MC G/ACT Nasal Suspension 03/02/2024 Provider: MAGO CORCORAN MD Diagnosis: Last Documented On 4 9:22AM By Paula Lewis ; [facility], [facility] Atorvastatin Calcium 40 MG Oral Tablet 03/02/2024 Pr ovider: MAGO CORCORAN MD Diagnosis: Last Documented On 4 9:22AM By Paula Lewis ; [facility] amLODIPine Besylate 10 MG Oral Tablet 03/02/2024 Pro vider: MAGO CORCORAN MD Diagnosis: Last Documented On 4 9:22AM By Paula Lewis ; [facility] Alendronate Sodium 70 MG Oral Tablet 03/02/2024 Prov ider: MAGO CORCORAN MD Diagnosis: Last Documented On 4 9:22AM By Paula Lewis ; [facility], [facility] Furosemide 40 MG Oral Tablet 03/02/2024 Provider: MAGO CORCORAN MD Diagnosis: Last Documented On 4 9:22AM By Paula Lewis ; [facility], [facility] Clopidogrel Bisulfate 75 MG Oral Tablet 03/02/2024 P rovider: MAGO CORCORAN MD Diagnosis: Last Documented On 4 9:22AM By Paula Lewis ; [facility], [facility] Past Medications on file TraMADol HCl 50MG Oral Tablet 03/22/2018 - 03/27/2018 Provider: Ezequiel ravi MD Diagnosis: 2 Tablets every 6 hours PRN pain for surgery DO NOT FILL TILL 03-28-18 Last Documented On 8 10:34AM By Bella Deleon ; [facility], [facility] OxyCODONE HCl 5MG Oral Tablet 03/22/2018 - 03/24/2018 Provider: Ezequiel ravi MD Diagnosis: 1-2 pills every 4-6 hours IN N pain for surgery DO NOT FILL TILL 03-28-18 Last Documented On 8 10:33AM By Bella Deleon ; [facility], [facility] Colace 100MG Oral Capsule 03/22/2018 - 06/20/2018 Provider: Ezequiel ravi MD Diagnosis: 1-2 tabs daily for surgery * *DO NOT FILL TILL 03-28-18 Last Documented On 8 10:40AM By Bella Deleon ; [facility] Acetaminophen 500MG Oral Tablet 03/22/2018 - 03/30/2018 Provider: Ezequiel Houston MD Diagnosis: 2 three times a day for surg tiffanie DO NOT FILL TILL 03-28-18 Last Documented On 8 10:40AM By Bella Deleon ; [facility] Mupirocin 2% External Ointment 03/21/2018 - 03/26/2018 Provider: Ezequiel ravi MD Diagnosis: Apply to nostrils 3 time a d ay 5 days prior to surgery. Last Documented On 8 10:49AM By Jaja Rutledge ; [facility] Medications Administered Includes: Administered Medications from this encounter No Administered Medications Recorded Vital Signs Includes: Vital Signs from this encounter Vital Name 08/01/2024 02:03P Height (in) 62 Weight (lb) 122 Body Mass Index 22.3 Body Surface Area 1.5 Note: ab Last Documented: On 08/01/2024 2:03PM ; [facility] Results Includes: Results discussed during this encounter [...] Documented On 4 2:37PM ; [facility] Not using drugs 08/01/2024 Last Documented On 4 2:37PM ; [facility] Alcohol use 03/07/2024 Last Documented On 4 2:02PM ; [facility] Caffeine use 03/07/2024 Last Documented On 4 2:02PM ; [facility] Not exercising regularly 03/07/2024 Last Documented On 4 2:02PM ; [facility] Yes, current smoker. 03/07/2024 Last Documented On 4 2:02PM ; [facility] Tobacco use 03/07/2024 Last Documented On 4 2:02PM ; [facility], [facility] Smoking status Current some day smoker 0 03/17/2018 Last Documented On 4 2:02PM ; [facility], [facility] Current smoker 03/17/2018 Last Documented On 4 2:02PM ; [facility] Sex - Female 08/03/2025 Last Documented On 5 2:46PM ; [facility], [facility] Procedures and Surgical History Includes: Procedures from this encounter Procedures Code Diagnosis Performing Provider Service L ocation Service Date history of orthopedic options: physical therapy Last Documented On 4 2:02PM ; [facility], [facility] intervention and counseling 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 of 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 fund 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 use 4000F Last Documented On 4 2:02PM ; [facility], [facility] use of tobacco assessment performed 1000F Last Documented On 4 2:02PM ; [facility] patient screened for future fall risk: documentation of any fall with injury in past year 1100F Last Documented On 4 2:02PM ; [facility], [facility] review of medications documented 1160F Last Documented On 4 2:02PM ; [facility], [facility] Clinical summary provided to patient Last Documented On 4 2:02PM ; [facility] an X-ray was performed 58222 Last Documented On 4 2:02PM ; [facility] an MRI was performed [id number] Last Documented On 4 2:02PM ; [facility] Surgical History Last Updated History of Previous Fractures 03/07/2024 Last Documented On 4 2:02PM ; [facility] History of total hip replacement Last Documented On 4 2:02PM ; [facility] History of back surgery 03/17/2018 Last Documented On 4 2:02PM ; [facility], [facility] Medical History Includes: Medical History addressed during this encounter Description Last Updated History of arthritis 03/07/2024 Last Documented On 4 2:02PM ; [facility], [facility] History of History of Emphysema 03/07/20 24 Last Documented On 4 2:02PM ; [facility], [facility] History of Sleep Apnea 03/07/2024 Last Documented On 4 2:02PM ; [facility], [facility] Arthritic joint problems 03/17/2018 Last Documented On 4 2:02PM ; [facility], [facility] Family History Includes: Family History addressed during this encounter Description Last Updated Diabetes mellitus 03/07/2024 Last Documented On 4 2:02PM ; [facility], [facility] Family history of heart disease 03/07/20 Last Documented On 4 2:02PM ; [facility], [facility] Family history of osteoporosis 4 Last Documented On 4 2:02PM ; [facility], [facility] Fraternal history of diabetes mellitus 0 03/17/2018 Last Documented On 4 2:02PM ; [facility], [facility] Maternal history of family history of he art disease 03/17/2018 Last Documented On 4 2:02PM ; [facility], [facility] Maternal history of osteoporosis 018 Last Documented On 4 2:02PM ; [facility], [facility] Paternal aunt's history of rheumatoid ar thritis 03/17/2018 Last Documented On 4 2:02PM ; [facility], [facility] Review of Systems Includes: Review [...] encounter Description No anxiety Last Documented On 4 2:02PM ; [facility], [facility] Physical Exam Includes: Physical Exam from this encounter Allergies Includes: Active Allergies Substance Type Reaction Onset Date Resolved Date Statu s Ibuprofen Allergy 03/17/2018 Active Last Documented On 5 1:44PM ; [facility] Care Furnace Mechanic Helper Name (Identifier) Role/Relation Location/Telecom Last Documented By Ezequiel Houston MD ([id number]) Assigned practitioner (occupation) tel:[phone] Last Documented On 08/03/2025 2:46PM ; [facility] MAGO CORCORAN MD ([id number]) [address], [place], [place], , [address] tel:[phone] Last Documented On 05/12/2018 1:07PM ; [facility], [facility] Encounters Encounter Provider Location (Healthcare Service Location) Date Check-In Time Check-Out Time Diagnosis Encounter Disposition Follow Up Raad Olivares PA-C [facility] 2023 1:52PM 2:37PM Payer Includes: Active Insurance Policies Plan Name (Payer ID) Coverage Type Member ID Group # Subscriber (ID) Relationship Effective Dates 1 - Medicare Part B of [place] ([id number]) [id number] Antonia Pickens Self Last Documented On 4 8:54AM ; [facility] 2 - [facility] [id number]) [id number] Antonia Barber s Self 11/08/2017 - Unknown Last Documented On 8 2:34PM ; [facility], [facility] Clinical Notes Includes: Clinical Notes from this encounter * Progress note Date Encounter Last Documented by 08/01/2024 Follow Up Last documented on 08/01/2024; 2:37 PM, Raad Olivares PA-C; [facility], [facility] Active Problems & Conditions - [...] - Ondansetron HCl 4 MG Oral Tablet 5dyl8-8g, 5 days, 0 refills - oxyCODONE HCl [...] Care Team - MAGO CORCORAN MD - HYSTER MACHINE OPERATOR
--- OUTSIDE RECORDS SUMMARY | 2025-11-05 12:58 | XMS_ITS | Data Portability ---
Author Organization [facility] HAO Keene [place] CLOSED Address [address] [facility] [facility] [place] [address] Care Team Providers Care Muck Hauler Name Role Phone MAXIMILIANO CORCORAN Primary Care [...] Time 08/25/20 24 Destruction Premalignant Lesion(s) completed [facility] 08/25/2024 10:19:57 08/25/20 Destruction BN Lesions completed [facility] 08/25/2024 10:20:02 cardiac catheterization completed [facility] 05/01/2025 15:02:04 Imaging Results None [...] ICD10 Code Diagnosis IMO Codes Diagnosis Note [id number] LISSETT Mina, KELLY DAK [facility] [address] [place] [address] 08/25/2024 09:55:48 08/25/2024 10:21:29 Multiple benign melanocytic nevi [id number] D22.5 - Benign moles seen on exam [...] changing or worrisome lesions Seborrheic keratosis 394 [id number] L82.1 - Benign overgrowth s of skin - Hereditary 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 UV light and genetics may increase risk. Treated lesions should blister, scab over, and heal within a few weeks. If treated lesion(s) does not resolve within 1-2 months, patient agrees to follow up for re-evaluat ion. Inflamed s eborrheic keratosis [id number] L82.0 L53.8 Counseled on benign nature. Pt elected to treat with liquid nitrogen due to painful irritation . May recur or persist after treatment. Discolorat ion or scarring is possible. [id number] LISSETT Mina, KELLY DAK [place] [address] [place] [address] 05/01/2025 13:58:03 05/01/2025 15:27:10 Multiple benign melanocytic nevi [id number] D22.5 - Benign moles seen on exam [...] changing or worrisome lesions Seborrheic keratosis 394 270011 L82.1 - Benign overgrowth s of skin- Hereditary No signs of malignancy or precancero us change today- Rec no treatment if not bothersome Solar lentigo 18452257 L 81.4 - Benign brown spots - Sun-induce d Health Concerns Section Related Observation LastModified by Organization Detai ls LastModified Time None Recorded Concern Status LastModified by Organization Details LastModified Time None Recorded Advance Directives Directive None Recorded Payers Insurance Date Sequence Insurance Name Policy Number Policy Baxter Covered Member ID Baxter Member ID Guarantor Name 08/24/2025 1 [place] Antonia Pickens [id number] Antonia Pickens 08/24/2025 2 [facility] (MEDICARE SUPPLEMENT) Antonia Pickens [id number] Antonia Pickens Notes Date Note Type Note Provider Name and Address Organization Details Recorded Time 08/25/2024 text/html Skin LesionRepor arabella by PatientI have some spots on my face my PCP wants checkedROS as noted in the HPI LISSETT MAY, KELLY [address] [place], [address], [facility] 08/28/2024 07:32:27 05/01/2025 text/html I am here for a f/u on AK'sLocation: R eye.Reports: Pt reports her PCP recommended to come back to check AK's.LV: 08/31Pt is accompanied by partner. LISSETT MAY, LOGGING ENGINEER [address] [place], [address], [facility] 05/02/2025 08:07:12 OBGyn Episode No OBEpisode recorded.
--- OUTSIDE RECORDS SUMMARY | 2025-11-05 12:58 | XMS_ITS | Clinical Summary ---
Author Organization [employer] ([place], [place], [place], [place], [place]) Address [address] [place] [address] Care Team Providers Care Construction Project Engineer Name Role Phone Ezequiel Houston MD [...] the past 12 months, has t he [employer], gas, oil, or water [employer] threatened to shut off services in your [...] your living situation today? I have a [facility] place to live 05/02/2024 Think about the [...] Do you speak a language other than Micronesian at [facility]? No 05/02/2024 Do you want help with [...] years Completed 08/26/2023, 2016 Insurance [employer] [id number] [place] [address] Advance Directives For more information, please contact: [phone] * Full Code (Latest Code Status on File) Date Activated Date Inactivated Comments 05/02/2024 8:35 PM 05/03/2024 7:01 PM -Attempt Res uscitation if person has no pulse and is not breathing. -If no pulse or not breathing attempt CPR/CODE. -Call Rapid Response if patient is in distress. Care Teams Construction Project Engineer Relationship Specialty Start Date End Date Ezequiel Houston MD PCP - General Orthopedic Surgery 05/02/24
--- OUTSIDE RECORDS SUMMARY | 2025-11-05 12:58 | XMS_ITS | Clinical Summary ---
Author Organization [facility] Address [address] [place] [address] Care Team Providers Care Salesperson Furs Name Role Phone Tariq Betancourt MD Primary [...] Description 06/24/2026 10:30 AM EDT Office Visit [facility] [address] [place] [address] José Miguel Abdi MD [address] [place] [address] Health Maintenance Due Date Last [...] 08/26/2023, 12/2016 Insurance MEDICARE A & B [facility] [place] [address] Care Teams Salesperson Furs Relationship Specialty Start Date End Date Tariq Betancourt MD [facility] [address] [facility] [address] [place] [address] PCP - General Family Medicine 03/06/25
--- OUTSIDE RECORDS SUMMARY | 2025-11-05 12:58 | XMS_ITS | Encounter Summary ---
Author Organization [facility]stem Address [address] [place] [address] Care Team Providers Care Lumber Salvager Name Role Phone Tariq Betancourt MD Primary Care Provider Encounter Details Date Type Department Care Team (Late st Contact Info) Description 06/12/2025 Telephone [facility] MEDICAL [facility] [address] [facility] [address] [place] [address] Mia Patiño APRN [address] [facility] [address] [place] [address] Social History Tobacco Use Types Packs/Day Years [...] Visit [facility] [address] [facility] [address] [place] [address] José Miguel Abdi MD [address] [facility] [address] [place] [address] documented as of this encounter Visit Diagnoses Not on filedocumented in this encounter Care Teams Lumber Salvager Relationship Specialty Start Date End Date Tariq Betancourt MD [address] [facility] [address] [place] [address] PCP - General Family Medicine 03/06/25 documented as of this encounter
--- OUTSIDE RECORDS SUMMARY | 2025-11-05 12:59 | XMS_ITS | Clinical Summary ---
Author Organization [facility] Address [address] [place] [address] Phone Care Team Providers Care Corporate Meeting Planner Name Role Phone Rosemarie SINGH, Ezequiel Dubois Unavailable [phone] JEWELL SINGH, MAGO Unavailable [phone] Reason for Visit and Chief Complaint The Chief Complaint is: Left DEANNA Problems Includes: Problems addressed during this encounter and other active Problems All Visits Onset Date Date of Diagnosis Resolved Date Provider Condition Status Joint Pain Hip Right 08/02/2025 08/02/2025 Young Neil PA-C Active Last Documented On 5 1:42AM ; [facility] Joint Pain Hip Bilateral 03/17/2018 03/17/2018 [facility] peggy Houston MD Active Last Documented On 5 1:39AM ; [facility] Plan of Treatment Fall Risk [...] - Last Documented On 06/13/2024 4:22PM ; [facility] Overall patient is pleased with the progress, we discussed the importance of patients with increasing activities. Start physical therapy outpatient. We will plan for follow up 6 weeks - Last Documented On 06/13/2024 4:22PM ; [facility] Pending Tests Order Diagnosis Results Due Ordering P rovider Lab Hemoglobin A1c 04/19/24 Young cullen PA-C Last Documented On 4 8:14AM ; [facility] Lab CBC With Differential/Platelet 04/19 Young Neil PA-C Last Documented On 4 8:14AM ; [facility] Lab Prothrombin Time (PT) 04/19/24 Ann-Marieteena Farias Rashaad PA-C Last Documented On 4 8:14AM ; [facility] Lab PTT, Activated 04/19/24 Young cullen PA-C Last Documented On 4 8:14AM ; [facility] Lab Prealbumin 04/19/24 Young Farias Rashaad [place]-C Last Documented On 4 8:14AM ; [facility] Lab Fructosamine 04/19/24 Young Farias Maura n PA-C Last Documented On 4 8:14AM ; [facility] Lab MRSA by DA 04/19/24 Young Farias Rashaad [place]-C Last Documented On 4 8:14AM ; [facility] Lab Comp. Metabolic Panel (14) 04/19/24 Young Dinora Rashaad [place]-C Last Documented On 4 8:14AM ; [facility] Instructions to patient Instructions for patient to see pcp for bp Last Documented On 4 2:07PM ; [facility] Intervention and counseling 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 of tobacco use Last Documented On 4 2:07PM ; [facility] Assessments Includes: Assessments from this encounter Findings 6 weeks status six weeks status post right DEANNA - Last Documented On 06/13/2024 4:22PM ; [facility] Instructions Includes: Instructions from this encounter Instructions to patient Instructions for patient to see pcp for bp Last Documented On 4 2:07PM ; [facility] Intervention and counseling 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 of tobacco use Last Documented On 4 2:07PM ; [facility] Medical Equipment - Implanted Devices Includes: Current Devices No Medical Equipment Recorded Medications Includes: Medications discussed during this encounter and other current Medications Current Medications (continue as prescribed) Aspirin 81 81 MG Oral Tablet Chewable 05/02/2024 Provider: Ezequiel ruby MD Diagnosis: once a day Fill Status: Filled Last Documented On 4 8:31AM By Hung Houston ; [facility] traMADol HCl 50 MG Oral Tablet 05/01/2024 Provider: Ezequiel Houston MD Diagnosis: 1-2 po q 4-6h Fill Status: Filled Last Documented On 4 2:09PM By Hung Houston ; [facility] oxyCODONE HCl 5 MG Oral Tablet 05/01/2024 Provider: Ezequiel Houston MD Diagnosis: 1-2 po q 4-6h Fill Status: Filled Last Documented On 4 2:09PM By Hung Houston ; [facility] Tranexamic Acid 650 MG Oral Tablet 05/01/2024 Provider: Ezequiel ruby MD Diagnosis: as directed TAKE 3 TABLETS O NE TIME A DAY BEGINNING THE EVENING OF SURGERY FOR FOUR DAYS Fill Status: Filled Last Documented On 4 2:09PM By Hung Houston ; [facility] Ondansetron HCl 4 MG Oral Tablet 05/01/2024 Provider : Ezequiel Houston MD Diagnosis: 5aln4-6x Fill Status: Filled Last Documented On 4 2:09PM By Hung Houston ; [facility] Meloxicam 15 MG Oral Tablet 05/01/2024 Provider: Ezequiel Houston MD Diagnosis: once a day Fill Status: Not Filled Last Documented On 4 2:09PM By Hung Houston ; [facility] Colace 100 MG Oral Capsule 05/01/2024 Provider: Danna Houston MD Diagnosis: 1-2 tabs daily Fill Status: Filled Last Documented On 4 2:09PM By Hung Houston ; [facility] Cefadroxil 500 MG Oral Capsule 05/01/2024 Provider: Ezequiel Houston MD Diagnosis: twice a day Fill Status: Filled Last Documented On 4 2:09PM By Hung Houston ; [facility] Acetaminophen 500 MG Oral Tablet 05/01/2024 Provider : Ezequiel Houston MD Diagnosis: 2 three times a day Fill Status: Not Filled Last Documented On 4 2:09PM By Hung Houston ; [facility] Albuterol Sulfate HFA 108 (9 0 Base) MCG/ACT Inhalation Aerosol Solution 03/14/2024 Provider: Diagnosis: Last Documented On 4 7:33AM By Abdirashid Mayfield ; [facility] DULoxetine HCl 30 MG Oral Capsule Delayed Release Spri nkle 03/14/2024 Provider: Diagnosis: Last Documented On 4 7:34AM By Abdirashid Mayfield ; [facility] Metoprolol Succinate ER 100 MG Oral Tablet Extended Release 24 Hour 03/14/2024 Provider: Diagnosis: Last Documented On 4 7:35AM By Abdirashid Mayfield ; [facility] Benazepril HCl 40 MG Oral Tablet 03/03/2024 Provider : MAGO CORCORAN MD Diagnosis: Last Documented On 4 9:22AM By Paula Lewis ; [facility] Fluticasone Propionate 50 MC G/ACT Nasal Suspension 03/02/2024 Provider: MAGO CORCORAN MD Diagnosis: Last Documented On 4 9:22AM By Paula Lewis ; [facility] Atorvastatin Calcium 40 MG Oral Tablet 03/02/2024 Pr ovider: MAGO CORCORAN MD Diagnosis: Last Documented On 4 9:22AM By Paula Lewis ; [facility] amLODIPine Besylate 10 MG Oral Tablet 03/02/2024 Pro vider: MAGO CORCORAN MD Diagnosis: Last Documented On 4 9:22AM By Paula Lewis ; [facility] Alendronate Sodium 70 MG Oral Tablet 03/02/2024 Prov ider: MAGO CORCORAN MD Diagnosis: Last Documented On 4 9:22AM By Paula Lewis ; [facility] Furosemide 40 MG Oral Tablet 03/02/2024 Provider: MAGO CORCORAN MD Diagnosis: Last Documented On 4 9:22AM By Paula Lewis ; [facility] Clopidogrel Bisulfate 75 MG Oral Tablet 03/02/2024 Polly dwyer: MAGO CORCORAN MD Diagnosis: Last Documented On 4 9:22AM By Paula Lewis ; [facility] Past Medications on file TraMADol HCl 50MG Oral Tablet 03/22/2018 - 03/27/2018 Provider: Ezequiel ravi MD Diagnosis: 2 Tablets every 6 hours PRN pain for surgery DO NOT FILL TILL 18 Last Documented On 8 10:34AM By Bella Deleon ; [facility] OxyCODONE HCl 5MG Oral Tablet 03/22/2018 - 03/24/2018 Provider: Ezequiel ravi MD Diagnosis: 1-2 pills every 4-6 hours DC N pain for surgery DO NOT FILL TILL 18 Last Documented On 8 10:33AM By Bella Deleon ; [facility] Colace 100MG Oral Capsule 03/22/2018 - 06/20/2018 Provider: Ezequiel ravi MD Diagnosis: 1-2 tabs daily for surgery * *DO NOT FILL TILL 18 Last Documented On 8 10:40AM By Bella Deleon ; [facility] Acetaminophen 500MG Oral Tablet 03/22/2018 - 03/30/2018 Provider: Ezequiel Houston MD Diagnosis: 2 three times a day for surg tiffanie DO NOT FILL TILL 18 Last Documented On 8 10:40AM By Bella Deleno ; [facility] Mupirocin 2% External Ointment 03/21/2018 - 03/26/2018 Provider: Ezequiel ravi MD Diagnosis: Apply to nostrils 3 time a d ay 5 days prior to surgery. Last Documented On 8 10:49AM By Jaja Rutledge ; [facility] Medications Administered Includes: Administered Medications from [...] 06/13/2024 Last Documented On 4 4:22PM ; [facility] Not using drugs 06/13/2024 Last Documented On 4 4:22PM ; [facility] Alcohol use 03/07/2024 Last Documented On 4 2:07PM ; [facility] Caffeine use 03/07/2024 Last Documented On 4 2:07PM ; [facility] Not exercising regularly 03/07/2024 Last Documented On 4 2:07PM ; [facility] Yes, current smoker. 03/07/2024 Last Documented On 4 2:07PM ; [facility] Tobacco use 03/07/2024 Last Documented On 4 2:07PM ; [facility] Smoking status Current some day smoker 0 03/17/2018 Last Documented On 4 2:07PM ; [facility] Current smoker 03/17/2018 Last Documented On 4 2:07PM ; [facility] Sex - Female 08/03/2025 Last Documented On 5 2:46PM ; [facility] Procedures and Surgical History Includes: Procedures from this encounter Procedures Code Diagnosis Performing Provider Service L ocation Service Date history of orthopedic options: physical therapy Last Documented On 4 2:07PM ; [facility] 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 Last Documented On 4 2:07PM ; [facility] use of tobacco assessment performed 1000F Last Documented On 4 2:07PM ; [facility] patient screened for future fall risk: documentation of any fall with injury in past year 1100F Last Documented On 4 2:07PM ; [facility] review of medications documented 1160F Last Documented On 4 2:07PM ; [facility] Clinical summary provided to patient Last Documented On 4 2:07PM ; [facility] an X-ray was performed 71697 Last Documented On 4 2:07PM ; [facility] an MRI was performed 20761 Last Documented On 4 2:07PM ; [facility] Surgical History Last Updated History of Previous Fractures 03/07/2024 Last Documented On 4 2:07PM ; [facility] History of total hip replacement 024 Last Documented On 4 2:07PM ; [facility] History of back surgery 03/17/2018 Last Documented On 4 2:07PM ; [facility] Medical History Includes: Medical History addressed during this encounter Description Last Updated History of arthritis 03/07/2024 Last Documented On 4 2:07PM ; [facility] History of History of Emphysema 03/07/20 24 Last Documented On 4 2:07PM ; [facility] History of Sleep Apnea 03/07/2024 Last Documented On 4 2:07PM ; [facility] Arthritic joint problems 03/17/2018 Last Documented On 4 2:07PM ; [facility] Family History Includes: Family History addressed during this encounter Description Last Updated Diabetes mellitus 03/07/2024 Last Documented On 4 2:07PM ; [facility] Family history of heart disease 03/07/20 24 Last Documented On 4 2:07PM ; [facility] Family history of osteoporosis 4 Last Documented On 4 2:07PM ; [facility] Fraternal history of diabetes mellitus 0 03/17/2018 Last Documented On 4 2:07PM ; [facility] Maternal history of family history of he art disease 03/17/2018 Last Documented On 4 2:07PM ; [facility] Maternal history of osteoporosis 018 Last Documented On 4 2:07PM ; [facility] Paternal aunt's history of rheumatoid ar thritis 03/17/2018 Last Documented On 4 2:07PM ; [facility] Review of Systems Includes: Review of [...] Description No anxiety Last Documented On 4 2:07PM ; [facility] Physical Exam Includes: Physical Exam from this encounter Allergies Includes: Active Allergies Substance Type Reaction Onset Date Resolved Date Statu s Ibuprofen Allergy 03/17/2018 Active Last Documented On 5 1:44PM ; [facility] Care Corporate Meeting Planner Name (Identifier) Role/Relation Location/Telecom Last Documented By Ezequiel Houston MD ([id number]) Assigned practitioner (occupation) tel: Last Documented On 08/03/2025 2:46PM ; [facility] MAGO CORCORAN MD ([id number]) [address] [place] [facility] [address] [place], , [address] tel: Last Documented On 05/12/2018 1:07PM ; [facility] Encounters Encounter Provider Location (Healthcare Service Location) Date Check-In Time Check-Out Time Diagnosis Encounter Disposition Post Op Young Neil PA-C [facility] 2023 1:58PM 2:38PM Payer Includes: Active Insurance Policies Plan Name (Payer ID) Coverage Type Member ID Group # Subscriber (ID) Relationship Effective Dates 1 - Medicare Part B [facility] ([id number]) [id number] Antonia Pickens Self Last Documented On 4 8:54AM ; [facility] 2 - [facility] ([id number]) [id number] Antonia grant Self 11/08/2017 - Unknown Last Documented On 8 2:34PM ; [facility] Clinical Notes Includes: Clinical Notes from this encounter * Progress note Date Encounter Last Documented by 06/13/2024 Post Op Last documented on 06/13/2024; 4:22 PM, Young Neil PA-C; [facility] Active Problems & Conditions - [...] - Ondansetron HCl 4 MG Oral Tablet [id number], 5 days, 0 refills - oxyCODONE HCl [...] Care Team - MAGO CORCORAN MD - AITCHBONE BREAKER
--- OUTSIDE RECORDS SUMMARY | 2025-11-05 12:59 | XMS_ITS ---
Author Organization [facility] Address [address] [place] [place] [address] Phone Care Team Providers Care Dental Surgeon Name Role Phone Rosemarie SINGH, Troy Dubois Unavailable + [phone] MAGO CORCORAN MD Unavailable [phone] Problems Includes: Active, inactive, and resolved Problems All Visits Onset Date Date of Diagnosis Resolved Date Provider Condition Status Joint Pain Hip Right 08/02/2025 08/02/2025 Young Neil PA-C Active Last Documented On 5 1:42AM ; [facility] Joint Pain Hip Bilateral 03/17/2018 03/17/2018 [facility] peggy Houston MD Active Last Documented On 5 1:39AM ; [facility] Plan of Treatment Findings Encounter Date Patient screened for future fall risk: documentation of any fall with injury in past year Follow Up with Raad Olivares PA-C 08/01/2024 Last Documented On 4 2:03PM ; [facility] Pending Tests Order [...] 4 8:14AM ; [facility] Lab PTT, Activated 04/19/24 Young Farias Winston cullen PA-C Last Documented On 4 8:14AM ; [facility] Lab Prealbumin 04/19/24 Young Farias Rashaad PA-C Last Documented On 4 8:14AM ; [facility] Lab Fructosamine 04/19/24 Young Farias Maura n PA-C Last Documented On 4 8:14AM ; [facility] Lab MRSA by DA 04/19/24 Young Farias Rashaad PA-C Last Documented On 4 8:14AM ; [facility] Lab Comp. Metabolic Panel (14) 04/19/24 Young Farias Rashaad PA-C Last Documented On 4 8:14AM ; [facility] Instructions to patient Instructions for patient to see pcp for bp Last Documented On 5 1:44PM ; [facility] Intervention and counseling 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 [...] use Last Documented On 5 1:44PM ; [facility] Instructions for patient to see [...] use Last Documented On 4 9:18AM ; [facility] Instructions for patient to see pcp for bp Last Documented On 8 2:20PM ; [facility] Medical Equipment - Implanted Devices Includes: Current and historical Devices No Medical Equipment Recorded Medications Includes: Current and historical Medications Current Medications (continue as prescribed) Aspirin 81 81 MG Oral Tablet Chewable 05/02/2024 Provider: Troy ruby MD Diagnosis: once a day Fill Status: Filled Last Documented On 4 8:31AM By Hung Houston ; [facility] traMADol HCl 50 MG Oral Tablet 05/01/2024 Provider: Tryo Houston MD Diagnosis: 1-2 po q 4-6h Fill Status: Filled Last Documented On 4 2:09PM By Hung Houston ; [facility] oxyCODONE HCl 5 MG Oral Tablet 05/01/2024 Provider: Troy Houston MD Diagnosis: 1-2 po q 4-6h Fill Status: Filled Last Documented On 4 2:09PM By Hung Houston ; [facility] Tranexamic Acid 650 MG Oral Tablet 05/01/2024 Provider: Troy ruby MD Diagnosis: as directed TAKE 3 TABLETS O NE TIME A DAY BEGINNING THE EVENING OF SURGERY FOR FOUR DAYS Fill Status: Filled Last Documented On 4 2:09PM By Hung Houston ; [facility] Ondansetron HCl 4 MG Oral Tablet 05/01/2024 Provider : Troy Houston MD Diagnosis: 0sdm5-1a Fill Status: Filled Last Documented On 4 2:09PM By Hung Houston ; [facility] Meloxicam 15 MG Oral Tablet 05/01/2024 Provider: Troy Houston MD Diagnosis: once a day Fill Status: Not Filled Last Documented On 4 2:09PM By Hung Houston ; [facility] Colace 100 MG Oral Capsule 05/01/2024 Provider: Danna Houston MD Diagnosis: 1-2 tabs daily Fill Status: Filled Last Documented On 4 2:09PM By Hung Houston ; [facility] Cefadroxil 500 MG Oral Capsule 05/01/2024 Provider: Troy Houston MD Diagnosis: twice a day Fill Status: Filled Last Documented On 4 2:09PM By Hung Houston ; [facility] Acetaminophen 500 MG Oral Tablet 05/01/2024 Provider : Troy Houston MD Diagnosis: 2 three times a day Fill Status: Not Filled Last Documented On 4 2:09PM By Hung Houston ; [facility] Albuterol Sulfate HFA 108 (9 0 Base) MCG/ACT Inhalation Aerosol Solution 03/14/2024 Provider: Diagnosis: Last Documented On 4 7:33AM By Abdirashid Mayfield ; [facility] DULoxetine HCl 30 MG Oral Capsule Delayed Release Spri nkle 03/14/2024 Provider: Diagnosis: Last Documented On 4 7:34AM By Abdirashid Mayfield ; [facility] Metoprolol Succinate ER 100 MG Oral Tablet Extended Release 24 Hour 03/14/2024 Provider: Diagnosis: Last Documented On 4 7:35AM By Abdirashid Mayfield ; [facility] Benazepril HCl 40 MG Oral Tablet 03/03/2024 Provider : MAGO CORCORAN MD Diagnosis: Last Documented On 4 9:22AM By Paula Lewis ; [facility] Fluticasone Propionate 50 MC G/ACT Nasal Suspension 03/02/2024 Provider: MAGO CORCORAN MD Diagnosis: Last Documented On 4 9:22AM By Paula Lewis ; [facility] Atorvastatin Calcium 40 MG Oral Tablet 03/02/2024 Pr ovider: MAGO CORCORAN MD Diagnosis: Last Documented On 4 9:22AM By Paula Lewis ; [facility] amLODIPine Besylate 10 MG Oral Tablet 03/02/2024 Pro vider: MAGO CORCORAN MD Diagnosis: Last Documented On 4 9:22AM By Paula Lewis ; [facility] Alendronate Sodium 70 MG Oral Tablet 03/02/2024 Prov ider: MAGO CORCORAN MD Diagnosis: Last Documented On 4 9:22AM By Paula Lewis ; [facility] Furosemide 40 MG Oral Tablet 03/02/2024 Provider: MAGO CORCORAN MD Diagnosis: Last Documented On 4 9:22AM By Paula Lewis ; [facility] Clopidogrel Bisulfate 75 MG Oral Tablet 03/02/2024 P rovider: MAGO CORCORAN MD Diagnosis: Last Documented On 4 9:22AM By Paula Lewis ; [facility] Past Medications on file Aspirin 81 81 MG Oral Tablet Chewable 05/01/2024 - 05/02/2024 Provider: Troy ravi MD Diagnosis: twice a day Fill Status: Filled Last Documented On 4 8:26AM By Hung Houston ; [facility] Nabumetone 500 MG Oral Tablet 12/18/2023 - 03/14/2024 Provider: Raul Shannon Md Diagnosis: Last Documented On 4 7:32AM By Abdirashid Mayfield ; [facility] Lisinopril 10MG Oral Tablet 05/20/2018 - 03/07/2024 Pr ovider: MAGO CORCORAN MD Diagnosis: Last Documented On 4 9:21AM By Paula Lewis ; [facility] GNP Vitamin D 400UNIT Oral Tablet Chewable 05/12/2018 - 03/07/2024 Provider: Diagnosis: Last Documented On 4 9:22AM By Paula Lewis ; [facility] TraMADol HCl 50MG [...] bedtime for surgery DO NOT FILL TILL 03-28-18 Last Documented On 8 1:04PM By Samantha Howard ; [facility] TraMADol HCl 50MG Oral Tablet 03/22/2018 - 03/27/2018 Provider: Troy ravi MD Diagnosis: 2 Tablets every 6 hours PRN pain for surgery DO NOT FILL TILL 18 Last Documented On 8 10:34AM By Bella Deleon ; [facility] OxyCODONE HCl 5MG Oral Tablet 03/22/2018 - 03/24/2018 Provider: Troy ravi MD Diagnosis: 1-2 pills every 4-6 hours AL N pain for surgery DO NOT FILL TILL 18 Last Documented On 8 10:33AM By Bella Deleon ; [facility] Colace 100MG Oral Capsule 03/22/2018 - 06/20/2018 Provider: Troy ravi MD Diagnosis: 1-2 tabs daily for surgery * *DO NOT FILL TILL 18 Last Documented On 8 10:40AM By Bella Deleon ; [facility] Acetaminophen 500MG Oral Tablet 03/22/2018 - 03/30/2018 Provider: Troy Houston MD Diagnosis: 2 three times a day for surg tiffanie DO NOT FILL TILL 03-28-18 Last Documented On 8 10:40AM By Bella eDleon ; [facility] Mupirocin 2% External Ointment 03/21/2018 - 03/07/2024 Provider: TROY FRANCOIS MD Diagnosis: Last Documented On 4 9:22AM By Paula Lewis ; [facility] Mupirocin 2% External Ointment 03/21/2018 - 03/26/2018 Provider: Troy ravi MD Diagnosis: Apply to nostrils 3 time a d ay 5 days prior to surgery. Last Documented On 8 10:49AM By Jaja Rutledge ; [facility] Amlodipine Besy-Benazepril H Cl 5-20MG Oral Capsule 02/15/2018 - 06/23/2018 Provider: MAGO Queen Diagnosis: Last Documented On 8 2:16PM By Elisha Flores ; [facility] Atorvastatin Calcium 40MG Or al Tablet 02/15/2018 - 03/07/2024 Provider: MAGO Queen Diagnosis: Last Documented On 4 9:22AM By Paula Lewis ; [facility] Medications Administered Includes: Administered Medications in patient's chart No Administered Medications Recorded Vital Signs Includes: Vital Signs from 11/05/2024 through 11/05/2025 Vital Name 08/02/2025 01:44P Height (in) 62 Weight (lb) 115 Body Mass Index 21 Body Surface Area 1.5 Note: ab Last Documented: On 08/02/2025 1:59PM ; [facility] Results Includes: Results from 11/05/2024 through 11/05/2025 No Results Recorded For Specified Dates Social History Description Last Updated No recent change in diet 08/02/2025 Last Documented On 5 2:10PM ; [facility] Not using drugs 08/02/2025 Last Documented On 5 2:10PM ; [facility] Alcohol use 03/07/2024 Last Documented On 4 9:37AM ; [facility] Caffeine use 03/07/2024 Last Documented On 4 9:37AM ; [facility] Not exercising regularly 03/07/2024 Last Documented On 4 9:37AM ; [facility] Yes, current smoker. 03/07/2024 Last Documented On 4 9:37AM ; [facility] Tobacco use 03/07/2024 Last Documented On 4 9:37AM ; [facility] Smoking status Current some day smoker 0 03/17/2018 Last Documented On 8 5:58PM ; [facility] Current smoker 03/17/2018 Last Documented On 8 5:58PM ; [facility] Sex - Female 08/03/2025 Last Documented On 5 2:46PM ; [facility] Procedures and Surgical History Includes: Procedures from 11/05/2024 through 11/05/2025 Procedures Code Diagnosis Performing Provider Service Location Service Date PELVIS w/ 2-3 VIEW HIP (RIGHT) 46584 Unilateral primary osteoarthritis, right hip, Presence of right artificial hip joint Young Neil PA-C [facility] 08/02/2025 Last Documented On 5 2:46PM ; [facility] Surgical History Last Updated History of Previous Fractures 03/07/2024 Last Documented On 4 9:37AM ; [facility] History of total hip replacement 024 Last Documented On 4 9:37AM ; [facility] History of back surgery 03/17/2018 Last Documented On 8 5:58PM ; [facility] Medical History Includes: Medical History in patient's chart Description Last Updated History of arthritis 03/07/2024 Last Documented On 4 9:37AM ; [facility] History of History of Emphysema 03/07/20 24 Last Documented On 4 9:37AM ; [facility] History of Sleep Apnea 03/07/2024 Last Documented On 4 9:37AM ; [facility] Arthritic joint problems 03/17/2018 Last Documented On 8 5:58PM ; [facility] Family History Includes: Family History in patient's chart Description Last Updated Diabetes mellitus 03/07/2024 Last Documented On 4 9:37AM ; [facility] Family history of heart disease 03/07/20 24 Last Documented On 4 9:37AM ; [facility] Family history of osteoporosis 4 Last Documented On 4 9:37AM ; [facility] Fraternal history of diabetes mellitus 0 03/17/2018 Last Documented On 8 5:58PM ; [facility] Maternal history of family history of he art disease 03/17/2018 Last Documented On 8 5:58PM ; [facility] Maternal history of osteoporosis 018 Last Documented On 8 5:58PM ; [facility] Paternal aunt's history of rheumatoid ar thritis 03/17/2018 Last Documented On 8 5:58PM ; [facility] Mental Status Description No anxiety Last Documented On 5 1:44PM ; [facility] No anxiety Last Documented On 4 2:02PM ; [facility] No anxiety Last Documented On 4 2:07PM ; [facility] No anxiety Last Documented On 4 9:03AM ; [facility] No anxiety Last Documented On 8 2:13PM ; [facility] No anxiety Last Documented On 8 12:46PM ; [facility] No anxiety Last Documented On 8 3:25PM ; [facility] Allergies Includes: Active, inactive, and resolved Allergies Substance Type Reaction Onset Date Resolved Date Statu s Ibuprofen Allergy 03/17/2018 Active Last Documented On 5 1:44PM ; [facility] Care Dental Surgeon Name (Identifier) Role/Relation Location/Telecom Last Documented By Troy Houston MD ([id number]) Assigned practitioner (occupation) tel: Last Documented On 08/03/2025 2:46PM ; [facility] MAGO CORCORAN MD ([id number]) [facility] [address], [place], , [address] tel: Last Documented On 05/12/2018 1:07PM ; [facility] Encounters Includes: Encounters from 11/05/2024 through 11/05/2025 Encounter Provider Location (Healthcare Service Location) Date Check-In Time Check-Out Time Diagnosis Encounter Disposition Follow Up Young Neil PA-C [facility] 2024 1:34PM 2:08PM Payer Includes: Active Insurance Policies Plan Name (Payer ID) Coverage Type Member ID Group # Subscriber (ID) Relationship Effective Dates 1 - Medicare Part B [facility] ([id number]) [id number] Antonia Pickens Self Last Documented On 4 8:54AM ; [facility] 2 - [facility] ([id number]) [id number] Antonia grant Self 11/08/2017 - Unknown Last Documented On 8 2:34PM ; [facility] Clinical Notes Includes: Signed Clinical Notes starting from 10/22/2022 * Progress note Date Encounter Last Documented by 08/02/2025 Follow Up Last documented on 08/02/2025; 2:10 PM, Young Neil PA-C; [facility] Active Problems & Conditions - [...] - Ondansetron HCl 4 MG Oral Tablet [id number], 5 days, 0 refills - oxyCODONE HCl [...] Care Team - MAGO CORCORAN MD - STORE FACILITY TECHNICIAN
[2025-11-05 13:10] VITALS: BP 113/71; PULSE 78; RESP 20; O2SAT 90
[2025-11-05] MEDS: IRON SUCROSE COMPLEX 200 MG in 0.9 % SODIUM CHLORIDE 100 ML 220 MG IV (13:10)
[2025-11-05] MEDS: SODIUM CHLORIDE 0.9% 10ML FLUSH SYRINGE 10 ML IV (13:10)
[2025-11-05 13:45] VITALS: BP 121/68; PULSE 71
== END 2025-11-05 23:59 | disposition home or self-care (01) ==
LOC: INF 12:52
PROVIDERS: PCP Family Medicine; Visit Provider Internal Medicine Medical Oncology
DX: D50.9 Iron deficiency anemia, unspecified (principal)
CPT/HCPCS: 96365; J1756